=== PATIENT | male | born 1945 | race Caucasian/White ===

== ENCOUNTER → 2020-09-20 12:38 | Outpatient (BNVA) | payer MEDICARE, SELFPAY | PROVIDERS: PCP Nurse Practitioner Family; Referring Provider Nurse Practitioner Family; Visit Provider Internal Medicine | DX: E04.2 Nontoxic multinodular goiter (principal); E55.9 Vitamin D deficiency, unspecified; E05.90 Thyrotoxicosis, unspecified without thyrotoxic crisis or storm | CPT/HCPCS: 99202 ==

== ENCOUNTER 2020-10-12 08:00 | Outpatient (RCR) | payer MEDICARE, SELFPAY ==
--- NOTE | 2020-09-07 09:41 | MHC.PT.EP ---
[facility] [place] Office [place] Office [place] [facility] [address] Thomas Hamm [address] [phone] F: [phone] F: [phone] F: [phone] F: [phone] Physical Therapy Plan of Care Date of Evaluation: 09/07/20 Date of Surgery: Diagnosis: This is a 74 yo male presenting to skilled PT with a script for OA of L hip Assessment: This is a 74 yo male presenting to skilled PT with a script for OA of L hip. He reports that most of his pain is in the L hip. He also has low back pain that is located at the L side (MRI about a year ago showed multiple myeloma and is in remission right now but has a follow up in 2 months). Pain is intermittent. He has been to multiple MDs in [place]. He thinks that his pain has been ongoing for a while due to this dx of multiple myeloma however increased after being on a ladder and pruning bushes a months ago. His pain is located at the L lateral hip and buttock, described as achy and stabbing at time. He has had PT in the past for the same issues at [facility] but reports that he never got a dx and pain remained. Assessment reveals pain ranging from 0 at rest to 9/10 at the worst often when ascending stairs. He has decreased L hip ROM and strength, ? SIJ involvement as well as he has + tests, TTP at [facility], impaired gait, balance and functional tolerance. Functionally he has been having trouble with stairs, walking and bending/lifting. He is a good candidate for skilled PT 2x/wk for 4wks based on function, gross anatomy and PMHx and symptom centralization with extension. Frequency and Duration: The patient will be seen 2x/wk for 4wks Short Term Goals: Patient will be I in HEP Patient will demo proper squat form without cuing or pain Patient will report centralization of symptoms [employer] Goals: Patient will demo WFL hip MMT and ROM Patient will report able to perform stairs with reciprocal gait pattern Pain will improve to no more than 2/10 with active movements, transfers, stairs etc. Treatment Plan: Modalities to reduce pain, spasms and effusion. Manual therapy to restore motion and function. Therapeutic exercise to improve strength and flexibility. Neuromuscular re-education for posture and balance. Therapeutic activities to return to functional activities of daily living. Please sign and return to therapist. Thank you for your referral.
--- NOTE | 2020-11-08 13:17 | MHC.PT.DC ---
[facility] [place] Office [place] Office [place] Office [address] Thomas Hamm [address] [phone] F: [phone] F: [phone] F: [phone] F: [phone] Physical Therapy Discharge Report Diagnosis: This is a 74 yo male presenting to skilled PT with a script for OA of L hip Date of Surgery: Date of Evaluation: 09/07/20 Date of Discharge: 11/08/20 Treatments to Date: 9 Cancellations to Date: 0 No Shows to Date: 0 Discharge Status: Achieved Goals Improved Function Independent with HEP Discharge Summary: At this time some progress has been made in terms of no pain with ADLs, getting in and out of the car and with household tasks. Patient occasionally continues to have similar symptoms that come and go. Due to this, I am recommending follow up with MD (due to PMHx) but continue HEP on own as he is I in his program. We have trialed repeated motions of flexion, extension, stretching and functional mobility. Patient feels well after tx. Patient would benefit from follow up with MD as needed and DC to HEP at this time (kept chart open for 30 days). Electronically signed by: Alexandria Panda PT Please sign and return to therapist. Thank you for your referral.
== END 2020-11-08 13:19 | disposition home or self-care (01) ==
LOC: HO.PTCHIC 08:00
PROVIDERS: PCP Nurse Practitioner Family; Visit Provider Nurse Practitioner Family
DX: M16.12 Unilateral primary osteoarthritis, left hip (principal)
CPT/HCPCS: 97110; 97140; 97162; 97530

== ENCOUNTER → 2020-10-18 15:30 | Outpatient (BNV) | payer MEDICARE, SELFPAY | PROVIDERS: PCP Nurse Practitioner Family; Visit Provider Internal Medicine Medical Oncology | DX: C90.00 Multiple myeloma not having achieved remission (principal); Z51.11 Encounter for antineoplastic chemotherapy | CPT/HCPCS: 99212; 99213; 99214 ==

== ENCOUNTER 2020-11-13 07:51 | Outpatient (REF) | payer MEDICARE, SELFPAY ==
--- NOTE | 2020-11-13 | US_ITS ---
EXAMINATION: COLOR-FLOW DUPLEX IMAGING OF THE BILATERAL LOWER EXTREMITY ARTERIAL SYSTEM. VELOCITY MEASUREMENTS THROUGHOUT THE FEMORAL ARTERIES WITH ANKLE-BRACHIAL PERIPHERAL ARTERIAL TESTING. CLINICAL INFORMATION: This a 74-year-old male with peripheral vascular disease. Claudication. Interventional Radiologist: Theo Hurst M.D., F.S.I.R., F.A.C.R. RIGHT FEMORAL RUNOFF VELOCITIES: The right common femoral artery measures 106 cm/s and triphasic. The right profunda femoral artery is 134 cm/s and is triphasic. Right proximal superficial femoral artery measures 102 cm/s and triphasic. Mid superficial femoral artery is 79 cm/s and triphasic. Distal right superficial femoral artery measures 50 cm/s and is triphasic. Right popliteal velocity measures 60 cm/s and is triphasic. The posterior tibial artery velocity measures 57 cm/s and was triphasic. LEFT FEMORAL RUNOFF VELOCITIES: The left common femoral artery measures 95 cm/s and triphasic. The left profunda femoral artery is 70 cm/s and is triphasic. Left proximal superficial femoral artery measures 86 cm/s and triphasic. Mid superficial femoral artery is 70 cm/s and triphasic. Distal left superficial femoral artery measures 31 cm/s and is biphasic. Left popliteal artery is occluded. The posterior tibial artery velocity measures 41 cm/s and was monophasic. An arrhythmia is demonstrated during the duplex portion of the study. Collaterals are seen around the occluded left popliteal artery. US/US arterial duplex LE BI IMPRESSION: 1. Normal right lower extremity peripheral arterial testing without evidence of hemodynamically significant stenosis. 2. There appears to be left popliteal artery occlusion. The left lower extremity inflow appears patent.
--- NOTE | 2020-11-13 07:56 | CT_ITS ---
EXAMINATION: CT ANGIOGRAM ABDOMEN AND PELVIS CLINICAL INFORMATION: Claudication, abdominal aortic aneurysm without rupture. COMPARISON: None TECHNIQUE: Multiple axial images were obtained through the abdomen and pelvis following the administration of 80 mL of Omnipaque 350 intravenous contrast. Images were reviewed on a dedicated 3-D workstation. This CT examination was performed using dose optimization techniques as appropriate, variously including the following: *Automated exposure control *Adjustment of mA and/or kV according to patient size (this includes techniques or standardized protocols for targeted exams where dose is matched to indication/reason for exam; i.e. extremities or head) *Use of iterative reconstruction technique DLP: 278 mGy-cm FINDINGS: Vascular: The distal thoracic aorta is mildly ectatic and measures 2.9 cm in diameter. At the hiatus the aorta is normal in diameter. There has been endovascular repair of an abdominal aortic aneurysm with bilateral iliac components. The excluded sac measures 3.8 x 4.2 cm, essentially unchanged from prior. There is no evidence of endoleak. Iliac components are unchanged. There is calcific disease of the iliac vessels without significant stenosis. There is calcific plaque of the femoral vessels which are otherwise widely patent. Celiac trunk and superior mesenteric arteries are widely patent. The inferior mesenteric artery is not opacified. Renal arteries are patent. There is a single right renal artery and there is a small left accessory renal artery which arises just proximal to the main. There is no significant stenosis. Unremarkable appearance of the venous structures for an arterial phase of contrast. Nonvascular: Emphysematous changes at the dependent portions of the lungs are similar to prior. Lung bases are otherwise clear. No pleural fluid collection. The liver is normal in overall size and attenuation. Multiple lobulated cysts are unchanged from prior. Tiny focus of hyperenhancement within the anterior left hepatic lobe (image 99, series 8) is unchanged from prior may represent a tiny flash-filling hemangioma or a small region of arterial portal shunting. Unremarkable gallbladder. No gallstones. No intrahepatic or extrahepatic duct dilation is identified. Pancreas is unremarkable. Spleen is mildly heterogeneous secondary to arterial phase of contrast, though otherwise unremarkable. Adrenal glands are unremarkable. The kidneys are symmetric in size and enhancement. There is a 1.6 cm cyst arising from the mid to lower pole of the right kidney, previously 1.3 cm. There are no renal calculi. There is no hydronephrosis or hydroureter. Normal partially distended bladder contour. The distal esophagus and stomach are unremarkable. The small and large bowel are normal in caliber. There is minimal colonic diverticulosis without inflammation to suggest diverticulitis. There is a normal appendix. Small fat-containing left inguinal hernia. Prostate is unremarkable. Note again made of superior endplate deformity of T11. There is a lucent lesion within the anterior left aspect of L5 which measures 2 x 1.7 x 1.8 cm, unchanged from prior study. CT/CT angio abdomen pelvis IMPRESSION: Stable appearance of abdominal aortic aneurysm post endovascular repair without evidence of endoleak. Stable appearance of left L5 vertebral body lesion.
[2020-11-13] MEDS: iohexoL 350 MG/ML 100 ML INFUS..BTL 80 ML IV (08:47)
== END 2020-11-13 07:52 | disposition home or self-care (01) ==
LOC: HO.CT 07:51
PROVIDERS: PCP Nurse Practitioner Family; Visit Provider Psychiatry & Neurology Neurology
DX: I73.9 Peripheral vascular disease, unspecified (principal); I71.4 Abdominal aortic aneurysm, without rupture
CPT/HCPCS: 74174; 93925; Q9967

== ENCOUNTER → 2020-12-06 08:52 | Outpatient (BNVA) | payer MEDICARE, SELFPAY | PROVIDERS: PCP Nurse Practitioner Family; Visit Provider Surgery Vascular Surgery | DX: K40.90 Unilateral inguinal hernia, without obstruction or gangrene, not specified as recurrent (principal); Z98.890 Other specified postprocedural states | CPT/HCPCS: 99212 ==

== ENCOUNTER → 2020-12-12 14:58 | Outpatient (BNVA) | payer MEDICARE, SELFPAY | PROVIDERS: PCP Nurse Practitioner Family; Visit Provider Surgery | DX: K40.90 Unilateral inguinal hernia, without obstruction or gangrene, not specified as recurrent (principal) | CPT/HCPCS: 99212 ==

== ENCOUNTER 2020-12-22 19:42 | Emergency (ER) | payer MEDICARE, SELFPAY ==
--- NOTE | ~2020-12-22 | US_ITS ---
EXAMINATION: US SCROTUM US SCROTUM DOPPLER CLINICAL INFORMATION: Testicular pain. Evaluate for torsion. COMPARISON: Scrotal ultrasound dated 01/11/2020. TECHNIQUE: A sonogram of the scrotum was performed assessing tolbert-scale appearance and color Doppler flow. Spectral Doppler analysis of the arterial and venous flow were performed in the testes bilaterally. FINDINGS: RIGHT: Right testicle measures 4.7 x 2.5 x 2.5 cm, volume 15.4 mL. Redemonstration of a right testicular septated cyst measuring 0.7 x 0.5 x 0.6 cm, not significantly changed. Spectral Doppler analysis of the arterial and venous flow is normal in the right testis. Right epididymal head is normal in size. Simple right epididymal head cysts measure up to 0.5 cm. Mild right-sided varicocele. No right-sided hydrocele. Right epididymal Doppler flow is normal. LEFT: Left testicle measures 5 x 2.4 x 3 cm, volume 18.8 mL. Cystic foci within the mid/lateral aspect of the left testicle which could represent tubular ectasia has increased now measuring up to 1.5 x 0.7 x 0.7 cm (previously measuring up to 1.3 cm). Spectral Doppler analysis of the arterial and venous flow is normal in the left testis. There is a left epididymal head cyst with layering debris which measures up to 6 x 2.4 x 4.2 cm (previously 5.3 x 2.8 x 3.2 cm). Mild left-sided varicocele. No left-sided hydrocele. Left epididymal Doppler flow is normal. US/US scrotum doppler IMPRESSION: 1. No evidence of testicular torsion. 2. Stable septated right testicular cyst. Simple right epididymal head cyst measuring up to 0.5 cm. 3. Increasing cystic foci within the left testicle now measuring up to 1.5 cm (previously 1.3 cm). Left epididymal head cyst with internal debris, increased when compared to the prior examination now measuring up to 6 cm (previously 5.3 cm). 4. Mild varicoceles, left greater than right.
--- NOTE | ~2020-12-22 | CT_ITS ---
EXAMINATION: CT ABDOMEN AND PELVIS WITH CONTRAST CLINICAL INFORMATION: flank pain, left inguinal hernia pain COMPARISON: 11/13/2020 TECHNIQUE: Multidetector volumetric imaging was performed from the superior aspect of the liver through the pubic symphysis following administration of 100 mL Omnipaque 300 intravenous contrast. Sagittal and coronal reformatted images were obtained on the technologist workstation.. This CT examination was performed using dose optimization techniques as appropriate, variously including the following: *Automated exposure control *Adjustment of mA and/or kV according to patient size (this includes techniques or standardized protocols for targeted exams where dose is matched to indication/reason for exam; i.e. extremities or head) *Use of iterative reconstruction technique DLP: 512 mGy-cm FINDINGS: LUNG BASES: Bolus emphysematous changes more so in the dependent lung bases. Small hiatal hernia. LIVER, GALLBLADDER, AND BILIARY TREE: Innumerable low-attenuation probable cysts are again seen throughout the hepatic parenchyma similar to the prior study. No obvious solid enhancing lesion or biliary ductal dilatation. The gallbladder is contracted but otherwise unremarkable with no evidence of radiopaque gallstones, gallbladder wall thickening, or obvious pericholecystic inflammatory changes. PANCREAS: Unremarkable. SPLEEN: Unremarkable. ADRENAL GLANDS: Unremarkable. KIDNEYS AND URETERS: Low-attenuation renal cyst in the lateral midpole of the right kidney. Otherwise the kidneys are normal in size, shape, and attenuation. No hydronephrosis, hydroureter, or calculi seen. No perinephric stranding. BLADDER: Unremarkable. GASTROINTESTINAL TRACT: Scattered diverticulosis but no colonic wall thickening or pericolonic inflammatory changes to suggest diverticulitis. Normal-appearing appendix. Visualized small bowel unremarkable ABDOMINAL WALL: Small fat-containing left greater than right inguinal hernias are seen. No evidence for bowel herniation. Small amount of fluid adjacent to the left inguinal hernia sac similar to the prior study. LYMPHOVASCULAR STRUCTURES: Vascular calcification within the aorta iliac system with a aortobiiliac stent graft noted. The excluded aneurysm component currently measures 3.9 cm in maximal AP diameter likely not significant a change from the prior study PELVIC VISCERA: Unremarkable. OSSEOUS STRUCTURES: Degenerative changes in the spine with chronic compression deformity of the superior endplate of T10 CT/CT abdomen pelvis w con IMPRESSION: Chronic appearing changes similar to the prior study. I do not appreciate any acute superimposed process. Fat-containing inguinal hernias are seen but no evidence for bowel herniation. Overall these appear grossly similar to the prior study.
[2020-12-22 20:06] VITALS: BP 141/86; PULSE 96; RESP 18; TEMP 36.4; O2SAT 96; BMI 25.8
--- NOTE | 2020-12-22 20:32 | ECG_ITS ---
Test Reason : BASELINE Blood Pressure : / mmHG Vent. Rate : 096 BPM Atrial Rate : 096 BPM P-R Int : 166 ms QRS Dur : 106 ms QT Int : 392 ms P-R-T Axes : 060 -49 048 degrees QTc Int : 495 ms Sinus rhythm with Premature atrial complexes Left anterior fascicular block Prolonged QT Abnormal ECG No previous ECGs available Referred By: Wendie Porter Electronically Signed By:LAUREN BROWNING MD
--- NOTE | 2020-12-22 20:32 | ED.MALEGU ---
HPI - Male Genitourinary General Chief complaint: Urogenital-Male Stated complaint: Hernia Source: patient Mode of arrival: ambulatory Limitations: no limitations History of Present Illness HPI Narrative: 75-year-old male with past medical history of multiple myeloma, hyperthyroidism, bursitis, hyperlipidemia, known left inguinal hernia, history of AAA repair, presents with left lower quadrant pain and bilateral testicular pain. The pain started while he was washing dishes, gradually increased to the point where he could not stand straight, then started to dissipate. At this time he states his pain is a 4/10 and at the worst it was a 10/10. He does not report any abdominal distention, fevers, chills, dysuria, hematuria, edema, testicular edema, chest pain or pressure, palpitations, or shortness of breath. MD Complaint: testicle pain and hernia Onset (ago): hour(s) (Several hours) Duration: constant and improved Location: right testicle, left testicle and left inguinal region Radiation: abdomen Severity: moderate Quality: aching Relieving factors: none Exacerbating factors: movement Associated symptoms: Reports denies other symptoms Related Data Home Medications Medication Instructions Recorded Confirmed acyclovir 400 mg PO DAILY 08/09/20 12/13/20 amlodipine [Norvasc] 10 mg PO DAILY 08/09/20 12/13/20 atorvastatin [Lipitor] 40 mg PO DAILY 08/09/20 12/13/20 dexamethasone [Decadron] 20 mg PO DIRECTED 08/09/20 12/13/20 lenalidomide [Revlimid] 15 mg PO DIRECTED 08/09/20 12/13/20 ondansetron HCl [Zofran] 8 mg PO Q8H PRN 08/09/20 12/13/20 bortezomib 3.5 mg solution for 0.875 mg SUBCUT QWEEK 09/20/20 12/13/20 injection lenalidomide 10 mg capsule mg PO 09/20/20 12/13/20 zoledronic acid 4 mg/5 mL 4 mg IV Q4W 09/20/20 12/13/20 intravenous solution Previous Rx's Medication Instructions Recorded metoprolol succinate 100 mg 100 mg PO DAILY #90 tab 08/20/20 tablet,extended release 24 hr hydrochlorothiazide 25 mg tablet 25 mg PO DAILY #90 tab 10/18/20 lisinopril 5 mg tablet 5 mg PO DAILY #90 tab 10/18/20 sulfamethoxazole-trimethoprim 1 tab PO DAILY #90 tab 12/20/20 Allergies Allergy/AdvReac Type Severity Reaction Status Date / Time oxycodone [OXYCODONE] AdvReac Severe vomiting, Verified 12/22/20 20:14 severe vomiting Review of Systems Review of Systems: Constitutional: No Fever, No Chills ENT/Mouth: No Ear Pain, No Hoarseness, No sore throat Eyes: No Eye Pain, No Swelling, No Redness, No Foreign Body Cardiovascular: No Chest Pain, No SOB Respiratory: No Cough, No Dyspnea Gastrointestinal: Positive left lower quadrant pain, No Nausea, No Vomiting, No Diarrhea, No abdominal Pain Genitourinary: Positive bilateral testicular pain, No Dysuria, No Hematuria Musculoskeletal: No joint pain, No Myalgias, No Joint Swelling Skin: No Skin lacerations, No rash Neuro: No Weakness, No Numbness, No Paresthesias, No Loss of Consciousness, No Dizziness, No Headache Psych: No Anxiety/Panic, No Depression Heme/Lymph: no easy bruising, no Lymphadenopathy Endocrine: No Polyuria, No Polydipsia Yes all other systems are reviewed and are negative [facility] Past Medical History Attestation statement: The following information was validated with the patient. Source: old records reviewed Medical History Leukopenia Multinodular thyroid Multiple myeloma Pancytopenia Subclinical hyperthyroidism Vitamin D deficiency Surgical History History of AAA (abdominal aortic aneurysm) repair History of back surgery History of bone marrow biopsy Hx of hernia repair (07/08/18) Hx of tooth extraction Hx of umbilical hernia repair (06/28/13) Family History Family History Father CVD (cardiovascular disease) AAA (abdominal aortic aneurysm) Mother Stomach cancer Social History Social History Household Members: Spouse Housing: House Alcohol intake: never Smoking Status: Never smoker Tobacco Type: Cigarette Years Smoked: 38 Use of substances other than those prescribed or required for medical reasons: No Special tiesha needs: No Agree to transfusion: Yes Advance Directives: Yes Advance Directives on File: Yes Advance Directives Date on File: 04/09/20 Physical Exam Vital Signs: Vital Signs: Last Vital Signs Temp 98.2 F 12/22/20 22:32 Pulse 76 12/22/20 22:32 Resp 16 12/22/20 22:32 BP 127/67 12/22/20 22:32 Pulse Ox 97 12/22/20 22:32 Body Mass Index 25.8 Appearance: Alert. Oriented X3. No acute distress. Eyes: Pupils equal, round and reactive to light. ENT: Pharynx normal. Neck: Normal inspection. Neck supple. CVS: Normal heart rate and rhythm. Pulses normal. Respiratory: No respiratory distress. Lung sounds clear to auscultation all lobes, no chest wall tenderness to palpation Abdomen: Soft and nontender. No bulging noted to the left inguinal, no palpable hernia noted Genitourinary: Testicular exam normal, no palpable masses, penis and glans are normal. No wounds or lesions noted. No pain when lifting or descending the testicles. Skin: Skin warm and dry. Normal skin color. Normal skin turgor. Extremities: No lower extremity edema. Neuro: No motor deficit. No sensory deficit. Course Course Course Narrative: 75-year-old male with past medical history of multiple myeloma, hyperthyroidism, bursitis, hyperlipidemia, known left inguinal hernia, history of AAA repair, presents with left lower quadrant pain and bilateral testicular pain. Plan of care is for CBC, Chem 7, EKG, scrotal ultrasound, and CT of abdomen and pelvis. Lab values are unremarkable, consistent with prior lab values as he does have multiple myeloma, H&H 12.2/35.9 which is consistent with prior values. Doppler shows no indication of torsion, bilateral testicular varicoceles and cysts. CT abdomen and pelvis is negative for incarcerated hernia or acute findings. Plan of care is for patient to follow up with Urology as an outpatient as well as Dr Sanchez for non urgent left inguinal hernia repair. Patient verbalized understanding of and agrees to plan of care discharge home. MDM - Male Genitourinary MDM Narrative Medical decision making narrative: Hernia incarceration, SBO, renal colic Differential Diagnosis Differential diagnosis: Likely urethritis, epididymitis and prostatitis Medical Records Attestation: I reviewed the patient's medical records. Lab Data Attestation: I reviewed the patient's lab results. Result diagrams: 12/22/20 20:57 12/22/20 20:57 Labs: Lab Results 12/22/20 12/22/20 12/22/20 Range/Units 20:39 20:39 20:57 WBC 9.0 (4.8-10.8) X10*3/uL RBC 3.75 L (4.60-5.80) X10*6/uL Hgb 12.2 L (14.0-18.0) g/dl Hct 35.9 L (42-52) % MCV 95.7 (80-98) fL MCH 32.5 (27.0-33.0) pg MCHC 34.0 (31.0-36.0) g/dl RDW 14.5 (11.0-16.0) % Plt Count 142 L D (160-400) X10*3/uL MPV 10.6 (9.4-12.4) fL Immature Gran % (Auto) 1.0 H (0.0-0.4) % Neut % (Auto) 86.6 H (45-73) % Lymph % (Auto) 3.7 L (20-40) % Converse % (Auto) 8.6 (2-11) % Eos % (Auto) 0.1 (0-4) % Baso % (Auto) 0.0 (0-2) % Lymph # (Auto) 0.3 L (1.2-4.9) X10*3/uL Converse # (Auto) 0.8 (0.1-1.2) X10*3/uL Eos # (Auto) 0.0 (0.0-0.4) X10*3/uL Baso # (Auto) 0.0 (0.0-0.2) X10*3/uL Abs Immat Gran (auto) 0.09 H (0.00-0.03) X10*3/uL Absolute Neuts (auto) 7.8 (2.0-8.3) X10*3/uL Absolute Nucleated RBC 0.000 (0.0-0.012) X10*3/uL Nucleated RBC % (auto) 0.0 (0.0-0.2) /100WBC Smear Tech's Comments VERIFIED PT (10.8-13.0) SEC INR (0.9-1.1) APTT (24.1-38.0) SEC Sodium (135-145) mmol/L Potassium (3.3-5.1) mmol/L Chloride (96-108) mmol/L Carbon Dioxide (22-29) mmol/L Anion Gap (12-20) BUN (9-16) mg/dL Creatinine (0.5-1.4) mg/dL Estim Creat Clear Calc Estimated GFR Random Glucose (60-115) mg/dL Calcium (8.4-10.2) mg/dL Urine Color YELLOW Urine Appearance CLEAR Urine pH 5.5 (5.0-8.0) Ur Specific Crockett >= 1.030 H (1.005-1.025) Urine Protein NEG (NEG-TRACE) MG/DL Urine Glucose (UA) NEG (NEG) MG/DL Urine Ketones NEG (NEG) MG/DL Urine Blood NEG (NEG) Urine Nitrite NEG (NEG) Ur Leukocyte Esterase NEG (NEG) Coronavirus (PCR) NEGATIVE (Negative) Influenza Type A (PCR) NEGATIVE (Negative) Influenza Type B (PCR) NEGATIVE (Negative) RSV RNA Qual (PCR) NEGATIVE (Negative) 12/22/20 12/22/20 Range/Units 20:57 20:57 WBC (4.8-10.8) X10*3/uL RBC (4.60-5.80) X10*6/uL Hgb (14.0-18.0) g/dl Hct (42-52) % MCV (80-98) fL MCH (27.0-33.0) pg MCHC (31.0-36.0) g/dl RDW (11.0-16.0) % Plt Count (160-400) X10*3/uL MPV (9.4-12.4) fL Immature Gran % (Auto) (0.0-0.4) % Neut % (Auto) (45-73) % Lymph % (Auto) (20-40) % Converse % (Auto) (2-11) % Eos % (Auto) (0-4) % Baso % (Auto) (0-2) % Lymph # (Auto) (1.2-4.9) X10*3/uL Converse # (Auto) (0.1-1.2) X10*3/uL Eos # (Auto) (0.0-0.4) X10*3/uL Baso # (Auto) (0.0-0.2) X10*3/uL Abs Immat Gran (auto) (0.00-0.03) X10*3/uL Absolute Neuts (auto) (2.0-8.3) X10*3/uL Absolute Nucleated RBC (0.0-0.012) X10*3/uL Nucleated RBC % (auto) (0.0-0.2) /100WBC Smear Tech's Comments PT 12.6 (10.8-13.0) SEC INR 1.1 (0.9-1.1) APTT 25.8 (24.1-38.0) SEC Sodium 137 (135-145) mmol/L Potassium 3.3 D (3.3-5.1) mmol/L Chloride 102 (96-108) mmol/L Carbon Dioxide 26 (22-29) mmol/L Anion Gap 12 (12-20) BUN 27 H D (9-16) mg/dL Creatinine 0.89 (0.5-1.4) mg/dL Estim Creat Clear Calc 70.4 Estimated GFR > 60 Random Glucose 149 H D (60-115) mg/dL Calcium 8.8 (8.4-10.2) mg/dL Urine Color Urine Appearance Urine pH (5.0-8.0) Ur Specific Crockett (1.005-1.025) Urine Protein (NEG-TRACE) MG/DL Urine Glucose (UA) (NEG) MG/DL Urine Ketones (NEG) MG/DL Urine Blood (NEG) Urine Nitrite (NEG) Ur Leukocyte Esterase (NEG) Coronavirus (PCR) (Negative) Influenza Type A (PCR) (Negative) Influenza Type B (PCR) (Negative) RSV RNA Qual (PCR) (Negative) Imaging Data Scrotal ultrasound: Attestation: I personally reviewed and interpreted this imaging study as follows: Radiologist's impression: EXAMINATION: US SCROTUM US SCROTUM DOPPLER CLINICAL INFORMATION: Testicular pain. Evaluate for torsion. COMPARISON: Scrotal ultrasound dated 01/11/2020. TECHNIQUE: A sonogram of the scrotum was performed assessing tolbert-scale appearance and color Doppler flow. Spectral Doppler analysis of the arterial and venous flow were performed in the testes bilaterally. FINDINGS: RIGHT: Right testicle measures 4.7 x 2.5 x 2.5 cm, volume 15.4 mL. Redemonstration of a right testicular septated cyst measuring 0.7 x 0.5 x 0.6 cm, not significantly changed. Spectral Doppler analysis of the arterial and venous flow is normal in the right testis. Right epididymal head is normal in size. Simple right epididymal head cysts measure up to 0.5 cm. Mild right-sided varicocele. No right-sided hydrocele. Right epididymal Doppler flow is normal. LEFT: Left testicle measures 5 x 2.4 x 3 cm, volume 18.8 mL. Cystic foci within the mid/lateral aspect of the left testicle which could represent tubular ectasia has increased now measuring up to 1.5 x 0.7 x 0.7 cm (previously measuring up to 1.3 cm). Spectral Doppler analysis of the arterial and venous flow is normal in the left testis. There is a left epididymal head cyst with layering debris which measures up to 6 x 2.4 x 4.2 cm (previously 5.3 x 2.8 x 3.2 cm). Mild left-sided varicocele. No left-sided hydrocele. Left epididymal Doppler flow is normal. US/US scrotum IMPRESSION: 1. No evidence of testicular torsion. 2. Stable septated right testicular cyst. Simple right epididymal head cyst measuring up to 0.5 cm. 3. Increasing cystic foci within the left testicle now measuring up to 1.5 cm (previously 1.3 cm). Left epididymal head cyst with internal debris, increased when compared to the prior examination now measuring up to 6 cm (previously 5.3 cm). 4. Mild varicoceles, left greater than right. CT scan - abdomen: Attestation: I personally reviewed and interpreted this imaging study as follows: Radiologist's impression: EXAMINATION: CT ABDOMEN AND PELVIS WITH CONTRAST CLINICAL INFORMATION: flank pain, left inguinal hernia pain COMPARISON: 11/13/2020 TECHNIQUE: Multidetector volumetric imaging was performed from the superior aspect of the liver through the pubic symphysis following administration of 100 mL Omnipaque 300 intravenous contrast. Sagittal and coronal reformatted images were obtained on the technologist workstation.. This CT examination was performed using dose optimization techniques as appropriate, variously including the following: *Automated exposure control *Adjustment of mA and/or kV according to patient size (this includes techniques or standardized protocols for targeted exams where dose is matched to indication/reason for exam; i.e. extremities or head) *Use of iterative reconstruction technique DLP: 512 mGy-cm FINDINGS: LUNG BASES: Bolus emphysematous changes more so in the dependent lung bases. Small hiatal hernia. LIVER, GALLBLADDER, AND BILIARY TREE: Innumerable low-attenuation probable cysts are again seen throughout the hepatic parenchyma similar to the prior study. No obvious solid enhancing lesion or biliary ductal dilatation. The gallbladder is contracted but otherwise unremarkable with no evidence of radiopaque gallstones, gallbladder wall thickening, or obvious pericholecystic inflammatory changes. PANCREAS: Unremarkable. SPLEEN: Unremarkable. ADRENAL GLANDS: Unremarkable. KIDNEYS AND URETERS: Low-attenuation renal cyst in the lateral midpole of the right kidney. Otherwise the kidneys are normal in size, shape, and attenuation. No hydronephrosis, hydroureter, or calculi seen. No perinephric stranding. BLADDER: Unremarkable. GASTROINTESTINAL TRACT: Scattered diverticulosis but no colonic wall thickening or pericolonic inflammatory changes to suggest diverticulitis. Normal-appearing appendix. Visualized small bowel unremarkable ABDOMINAL WALL: Small fat-containing left greater than right inguinal hernias are seen. No evidence for bowel herniation. Small amount of fluid adjacent to the left inguinal hernia sac similar to the prior study. LYMPHOVASCULAR STRUCTURES: Vascular calcification within the aorta iliac system with a aortobiiliac stent graft noted. The excluded aneurysm component currently measures 3.9 cm in maximal AP diameter likely not significant a change from the prior study PELVIC VISCERA: Unremarkable. OSSEOUS STRUCTURES: Degenerative changes in the spine with chronic compression deformity of the superior endplate of T10 CT/CT abdomen pelvis w con IMPRESSION: Chronic appearing changes similar to the prior study. I do not appreciate any acute superimposed process. Fat-containing inguinal hernias are seen but no evidence for bowel herniation. Overall these appear grossly similar to the prior study. Discharge Plan Discharge Clinical Impression: Bilateral varicoceles Multiple myeloma Qualifiers: Multiple myeloma remission status: in remission Qualified Code(s): C90.01 - Multiple myeloma in remission Inguinal hernia Qualifiers: Obstruction and gangrene presence: without obstruction or gangrene Laterality: unilateral Recurrence: recurrent Qualified Code(s): K40.91 - Unilateral inguinal hernia, without obstruction or gangrene, recurrent Patient Disposition: Home, Self-Care Instructions: Inguinal Hernia (ED), Varicocele (ED), Testicle Pain (ED) Additional Instructions: You were evaluated for left inguinal hernia and testicular pain. Scrotal ultrasound shows testicular cysts and varicoceles bilaterally. Please follow-up with Urology, Dr Ralph for evaluation. Please call and request an appointment. CT scan of the abdomen and pelvis are negative for acute findings requiring emergent intervention. The left inguinal hernia does not show any indication of incarceration or infection. You may consider following up with your surgeon, Dr. Sanchez for an outpatient surgical evaluation. Thank you for choosing this emergency department for evaluation. Please follow-up with primary care physician as needed. Return to the emergency department for any new, concerning, or worsening symptoms. Prescriptions: No Action metoprolol succinate 100 mg tablet extended release 24 hr 100 mg PO DAILY Qty: 90 RF: 0 lisinopril 5 mg tablet 5 mg PO DAILY Qty: 90 RF: 0 hydrochlorothiazide 25 mg tablet 25 mg PO DAILY Qty: 90 RF: 0 atorvastatin [Lipitor] 40 mg tablet 40 mg PO DAILY RF: 0 ondansetron HCl [Zofran] 8 mg tablet 8 mg PO Q8H PRN (Reason: Nausea) RF: 0 acyclovir 400 mg tablet 400 mg PO DAILY RF: 0 amlodipine [Norvasc] 10 mg tablet 10 mg PO DAILY RF: 0 dexamethasone [Decadron] 4 mg tablet 20 mg PO DIRECTED RF: 0 Revlimid 15 mg capsule 15 mg PO DIRECTED RF: 0 sulfamethoxazole-trimethoprim 400-80 mg tablet 1 tab PO DAILY Qty: 90 RF: 6 Revlimid 10 mg capsule PO RF: 0 zoledronic acid 4 mg/5 mL solution 4 mg IV Q4W RF: 0 Velcade 3.5 mg recon soln 0.875 mg subcut QWEEK RF: 0 Referrals: Bar Ralph MD [Physician] - 2 days (Bilateral testicular cysts and varicoceles) Tho Sanchez MD [Physician] - 2 days (Left inguinal hernia)
[2020-12-22 20:33] VITALS: BP 159/84; PULSE 101; RESP 17; TEMP 37.1; O2SAT 97
[2020-12-22 21:05] LABS: Eosinophils Percent Auto 0.1 % (0-4); Hematocrit 35.9 % (42-52); Hemoglobin 12.2 g/dl (14.0-18.0); Imm Gran Abs Auto 0.09 X10*3/uL (0.00-0.03); Lymphocytes Absolute Auto 0.3 X10*3/uL (1.2-4.9); Lymphocytes Percent Auto 3.7 % (20-40); MANUAL DIFF FLAG SCAN; Mean Corpuscular Hemoglobin 32.5 pg (27.0-33.0); Mean Corpuscular Volume 95.7 fL (80-98); Mean Platelet Volume 10.6 fL (9.4-12.4); Monocytes Absolute Auto 0.8 X10*3/uL (0.1-1.2); Monocytes Percent Auto 8.6 % (2-11); Neutrophils Absolute Auto 7.8 X10*3/uL (2.0-8.3); Neutrophils Percent Auto 86.6 % (45-73); Platelet Count 142 X10*3/uL (160-400); Red Blood Count 3.75 X10*6/uL (4.60-5.80); Red Cell Distribution Width 14.5 % (11.0-16.0); SCAN SMEAR FLAG 1
[2020-12-22 21:05] LABS: Glucose Urine UA NEG (NEG); Leukocyte Esterase Urine NEG (NEG); Nitrite Urine NEG (NEG); PH 5.5 (5.0-8.0); Specific Gravity - Urine >= 1.030 (1.005-1.025); Urine Blood NEG (NEG); Urine Ketones NEG (NEG); Urine Protein NEG (NEG-TRACE)
[2020-12-22 21:11] LABS: Appearance Urine CLEAR; Color Urine YELLOW
[2020-12-22 21:14] LABS: INTERNATIONAL NORM RATIO 1.1 (0.9-1.1); Prothrombin Time 12.6 SEC (10.8-13.0)
[2020-12-22 21:17] LABS: Partial Thromboplastin Time 25.8 SEC (24.1-38.0)
[2020-12-22 21:28] LABS: SLIDE REVIEW VERIFIED
[2020-12-22 21:29] LABS: Anion Gap 12 (12-20); Blood Urea Nitrogen 27 mg/dL (9-16); Calcium 8.8 mg/dL (8.4-10.2); Carbon Dioxide 26 mmol/L (22-29); Chloride 102 mmol/L (96-108); Creatinine Clr Calc Pharmacy 70.4; Estimated Glomerular Filt Rate > 60; Glucose Random 149 mg/dL (60-115); Potassium 3.3 mmol/L (3.3-5.1); Sodium 137 mmol/L (135-145)
[2020-12-22 21:41] LABS: Influenza A PCR NEGATIVE (Negative); Influenza B PCR NEGATIVE (Negative); Resp Syncy Virus RNA Qual PCR NEGATIVE (Negative); SARS COV2 PCR INHOUSE NEGATIVE (Negative)
[2020-12-22 22:32] VITALS: BP 127/67; PULSE 76; RESP 16; TEMP 36.8; O2SAT 97
[2020-12-22] MEDS: iohexoL 350 MG/ML 100 ML INFUS..BTL IV (22:32)
== END 2020-12-22 23:00 | disposition home or self-care (01) ==
PROVIDERS: Nurse Practitioner Family; Emergency Provider Emergency Medicine; PCP Nurse Practitioner Family
DX: K40.91 Unilateral inguinal hernia, without obstruction or gangrene, recurrent (principal); N50.811 Right testicular pain; N50.812 Left testicular pain; I86.1 Scrotal varices; C90.01 Multiple myeloma in remission; Z20.822 Contact with and (suspected) exposure to COVID-19; F17.210 Nicotine dependence, cigarettes, uncomplicated
CPT/HCPCS: 0241U; 36415; 74177; 76870; 80048; 81003; 85025; 85610; 85730; 93005; 93975; 99284; Q9967

== ENCOUNTER 2021-01-06 15:10 | Emergency (ER) | payer MEDICARE, SELFPAY ==
--- NOTE | ~2021-01-06 | CT_ITS ---
EXAMINATION: CT ABDOMEN AND PELVIS WITH CONTRAST CLINICAL INFORMATION: 75-year-old male with left inguinal pain. Question incarcerated hernia. COMPARISON: CT abdomen pelvis 12/22/2020 TECHNIQUE: Multidetector volumetric images were obtained from the superior aspect of the liver through the pubic symphysis following administration 100 mL of Omnipaque 350 intravenous contrast. Sagittal and coronal reformatted images were obtained on the technologist's workstation. This CT examination was performed using dose optimization techniques as appropriate, variously including the following: *Automated exposure control *Adjustment of mA and/or kV according to patient size (this includes techniques or standardized protocols for targeted exams where dose is matched to indication/reason for exam; i.e. extremities or head) *Use of iterative reconstruction technique DLP: 596 mGy-cm FINDINGS: Visualized lung bases demonstrate dependent atelectasis and emphysematous changes. Innumerable hypodense lesions are present throughout the liver, most demonstrate cystic characteristics. The gallbladder is normal in appearance. The pancreas, spleen and adrenal glands are unremarkable. Small posterior splenule again noted. Symmetrically enhancing kidneys. No hydronephrosis of either kidney. 1.8 cm right renal cyst. Tiny hiatal hernia. The stomach is decompressed. Normal caliber loops of small and large bowel. [id number] colonic diverticulosis. No CT evidence to suggest active diverticulitis. Normal appendix. Patient is status post aortobiiliac stent grafting. The graft appears widely patent. Stable dilatation of the infrarenal abdominal aorta measuring 4 cm in maximum AP dimension. No gross retroperitoneal lymphadenopathy. The bladder is distended but otherwise unremarkable in appearance. The prostate gland is enlarged. Bilateral inguinal hernias are present. A small amount of fluid is again noted within the left inguinal hernia. Diffuse osteopenia. Moderate degenerative changes of the spine. Similar mild T10 compression deformity. CT/CT abdomen pelvis w con IMPRESSION: -Stable chronic changes of the abdomen/pelvis. No evidence of incarcerated hernia.
[2021-01-06 15:15] VITALS: BP 148/80; PULSE 82; RESP 18; TEMP 36.7; O2SAT 99; BMI 26.6
[2021-01-06 17:12] VITALS: BP 150/77; PULSE 71; RESP 19; TEMP 36.8; O2SAT 99
[2021-01-06] MEDS: 0.9 % Sodium Chloride 1,000 ML 999 ML IV (17:52)
[2021-01-06] MEDS: ondansetron HCL 4 MG/2 ML VIAL IVPUSH (17:56)
[2021-01-06] MEDS: Morphine Sulfate 4 MG/ML CARTRIDGE IVPUSH (17:56)
--- NOTE | 2021-01-06 17:58 | ED.ABDPAIN ---
HPI - Abdominal Pain General Chief Complaint: Abdominal Pain Stated Complaint: hernia Time Seen by Provider: 01/06/21 17:15 Source: patient Mode of arrival: ambulatory Limitations: no limitations History of Present Illness HPI narrative: Patient presents to ED for left lower inguinal pain. Patient states known history of inguinal hernia. Patient states he is being followed by Dr. Sanchez of surgery. Patient was seen here on the of this month left inguinal pain and had a CT scan which shows fat inguinal hernia, but no incarceration. Patient states he had pain again this morning is the worst that it has ever been. Patient denies any nausea, vomiting, hematuri, flank pain, fever, chills or constipation. Patient states to having good bowel movements today. Related Data Home Medications Medication Instructions Recorded Confirmed acyclovir 400 mg PO DAILY 08/09/20 12/13/20 amlodipine [Norvasc] 10 mg PO DAILY 08/09/20 12/13/20 atorvastatin [Lipitor] 40 mg PO DAILY 08/09/20 12/13/20 dexamethasone [Decadron] 20 mg PO DIRECTED 08/09/20 12/13/20 ondansetron HCl [Zofran] 8 mg PO Q8H PRN 08/09/20 12/13/20 bortezomib 3.5 mg solution for 0.875 mg SUBCUT QWEEK 09/20/20 12/13/20 injection lenalidomide 10 mg capsule mg PO 09/20/20 12/13/20 zoledronic acid 4 mg/5 mL 4 mg IV Q4W 09/20/20 12/13/20 intravenous solution aspirin 325 mg PO DAILY 01/04/21 01/04/21 calcium mg PO 01/04/21 multivitamin 1 tab PO DAILY 01/04/21 01/04/21 omega-3 fatty acids [Fish Oil] PO 01/04/21 01/04/21 vitamin D3-vitamin K2 tab PO 01/04/21 Previous Rx's Medication Instructions Recorded hydrochlorothiazide 25 mg tablet 25 mg PO DAILY #90 tab 10/18/20 lisinopril 5 mg tablet 5 mg PO DAILY #90 tab 10/18/20 sulfamethoxazole-trimethoprim 1 tab PO DAILY #90 tab 12/20/20 metoprolol succinate 100 mg 100 mg PO DAILY #90 tab 01/02/21 tablet,extended release 24 hr tramadol 50 mg PO TID PRN #9 tab 01/06/21 Allergies Allergy/AdvReac Type Severity Reaction Status Date / Time oxycodone [OXYCODONE] AdvReac Severe vomiting, Verified 12/22/20 20:14 severe vomiting Review of Systems Review of Systems Yes all other systems are reviewed and are negative Constitutional: Reports as per HPI and Reports no additional constitutional complaints Eyes: Reports as per HPI and Reports no additional eye complaints Reports system reviewed and no additional complaints, except as documented and Reports as per HPI Cardiovascular: Reports as per HPI and Reports no additional cardiovascular complaints Respiratory: Reports as per HPI and Reports no additional respiratory complaints Gastrointestinal: Reports as per HPI, Reports no additional gastrointestinal complaints and Reports abdominal pain (Left inguinal groin pain) Genitourinary: Reports no additional male genitourinary complaints and Reports as per HPI Musculoskeletal: Reports no additional musculoskeletal complaints and Reports as per HPI Reports system reviewed and no additional complaints, except as documented and Reports as per HPI Psychiatric: Reports no additional psychiatric complaints and Reports as per HPI Physical Exam Vital Signs: Vital Signs: Last Vital Signs Temp 98.3 F 01/06/21 17:12 Pulse 71 01/06/21 17:12 Resp 19 01/06/21 17:12 BP 150/77 H 01/06/21 17:12 Pulse Ox 99 01/06/21 17:12 Body Mass Index 26.6 Const: General: cooperative, healthy appearing, comfortable, no acute distress, well developed, alert, awake and Physically active Orientation/consciousness: patient oriented x3 HENMT: Head: Yes normal to inspection and Yes No palpable skull fracture present Eyes: General: appearance normal, both eyes and all related structures Neck: Neck: Yes normal visual inspection, Yes full ROM, Yes no lymphadenopathy, Yes no meningeal signs, Yes trachea midline, Yes supple and No tender Chest: Chest palpation & inspection: normal inspection of the chest and normal palpation of entire chest wall Resp: Effort & Inspection: normal respiratory effort and able to speak in complete sentences Cardio: Jugular venous distension: no JVD Heart sounds: S1 normal heart sound present and S2 normal heart sound present GI: Inspection: Yes normal to inspection and No abdominal wall ecchymosis Palpation (GI): Soft to palpation, not firm, nontender, no guarding and not rigid : Other: Left inguinal groin: Positive for tender reducible mass in groin. Negative for any left testicular swelling/tenderness. Right inguinal groin: Right inguinal groin normal. Right testicle is normal General: No CVA tenderness and Yes no CVA tenderness Back/Spine/Pelvis: Back: no CVA tenderness, No CVA tenderness and No back tenderness Skin: General skin exam: no rashes or lesions noted and elasticity normal Neuro: General: patient oriented x3, no meningeal signs and CN's II-XI intact bilaterally Cranial nerves: Yes CN's II-XII intact bilaterally Extrem: General: Yes normal to inspection and Yes full ROM Psych: Appearance: grossly normal, well kempt and not disheveled Course Course Course Narrative: I reviewed patient's CT scan either on the 12/22 and showed small left fat containing inguinal hernia. Due to patient stating now the pain is worse than ever will do labs/lactate/possible repeat CT scan. Patient states multiple myeloma still active. Case was discussed with Dr. Glover of surgery while was in the ED as an unofficial off service consult. He states there is a possibility that presently the inguinal hernia can be an actual bowel containing hernia although that is very rare. He states patient's pain is worse than before and repeat CT scan can be done and if normal patient to follow-up with his surgeon Dr. Sanchez Reevaluation(s) Reevaluation #1: Patient states left inguinal pain resolved and he feels better after receiving morphine and IV fluids. UA came back negative for UTI. Labs are at baseline. negative for elevated WBC. Lactic acid negative. Abdominal CT negative for any incarcerated hernia or any acute intrabdominal process. patient safe for discharge and will follow up with Dr. Sanchez of surgery Time: 21:19 MDM - Abdominal Pain MDM Narrative Medical decision making narrative: Inguinal hernia Lab Data Result diagrams: 01/06/21 17:44 01/06/21 17:44 Labs: Lab Results 01/06/21 01/06/21 01/06/21 Range/Units 17:44 17:44 17:44 WBC 5.7 (4.8-10.8) X10*3/uL RBC 3.78 L (4.60-5.80) X10*6/uL Hgb 12.2 L (14.0-18.0) g/dl Hct 36.7 L (42-52) % MCV 97.1 (80-98) fL MCH 32.3 (27.0-33.0) pg MCHC 33.2 (31.0-36.0) g/dl RDW 14.8 (11.0-16.0) % Plt Count 78 L (160-400) X10*3/uL MPV 12.4 (9.4-12.4) fL Immature Gran % (Auto) 0.7 H (0.0-0.4) % Neut % (Auto) 59.4 (45-73) % Lymph % (Auto) 17.8 L (20-40) % Ferry % (Auto) 21.9 H (2-11) % Eos % (Auto) 0.2 (0-4) % Baso % (Auto) 0.0 (0-2) % Lymph # (Auto) 1.0 L (1.2-4.9) X10*3/uL Ferry # (Auto) 1.2 (0.1-1.2) X10*3/uL Eos # (Auto) 0.0 (0.0-0.4) X10*3/uL Baso # (Auto) 0.0 (0.0-0.2) X10*3/uL Abs Immat Gran (auto) 0.04 H (0.00-0.03) X10*3/uL Absolute Neuts (auto) 3.4 (2.0-8.3) X10*3/uL Absolute Nucleated RBC 0.000 (0.0-0.012) X10*3/uL Nucleated RBC % (auto) 0.0 (0.0-0.2) /100WBC Smear Tech's Comments VERIFIED PT 11.9 (10.8-13.0) SEC INR 1.0 (0.9-1.1) APTT 23.8 L (24.1-38.0) SEC Sodium 136 (135-145) mmol/L Potassium 3.6 (3.3-5.1) mmol/L Chloride 100 (96-108) mmol/L Carbon Dioxide 29 (22-29) mmol/L Anion Gap 11 L (12-20) BUN 27 H (9-16) mg/dL Creatinine 0.81 (0.5-1.4) mg/dL Estim Creat Clear Calc 77.4 Estimated GFR > 60 Random Glucose 114 (60-115) mg/dL Lactic Acid (0.5-2.0) mmol/L Calcium 8.4 (8.4-10.2) mg/dL Total Bilirubin 0.7 (0.0-1.0) mg/dL AST 11 (5-37) U/L ALT 14 (0-40) U/L Alkaline Phosphatase 68 (39-117) U/L Total Protein 5.8 L (6.5-8.0) g/dL Albumin 3.6 (3.5-5.0) g/dL Urine Color Urine Appearance Urine pH (5.0-8.0) Ur Specific [place] (1.005-1.025) Urine Protein (NEG-TRACE) MG/DL Urine Glucose (UA) (NEG) MG/DL Urine Ketones (NEG) MG/DL Urine Blood (NEG) Urine Nitrite (NEG) Ur Leukocyte Esterase (NEG) 01/06/21 01/06/21 Range/Units 17:44 20:16 WBC (4.8-10.8) X10*3/uL RBC (4.60-5.80) X10*6/uL Hgb (14.0-18.0) g/dl Hct (42-52) % MCV (80-98) fL MCH (27.0-33.0) pg MCHC (31.0-36.0) g/dl RDW (11.0-16.0) % Plt Count (160-400) X10*3/uL MPV (9.4-12.4) fL Immature Gran % (Auto) (0.0-0.4) % Neut % (Auto) (45-73) % Lymph % (Auto) (20-40) % Ferry % (Auto) (2-11) % Eos % (Auto) (0-4) % Baso % (Auto) (0-2) % Lymph # (Auto) (1.2-4.9) X10*3/uL Ferry # (Auto) (0.1-1.2) X10*3/uL Eos # (Auto) (0.0-0.4) X10*3/uL Baso # (Auto) (0.0-0.2) X10*3/uL Abs Immat Gran (auto) (0.00-0.03) X10*3/uL Absolute Neuts (auto) (2.0-8.3) X10*3/uL Absolute Nucleated RBC (0.0-0.012) X10*3/uL Nucleated RBC % (auto) (0.0-0.2) /100WBC Smear Tech's Comments PT (10.8-13.0) SEC INR (0.9-1.1) APTT (24.1-38.0) SEC Sodium (135-145) mmol/L Potassium (3.3-5.1) mmol/L Chloride (96-108) mmol/L Carbon Dioxide (22-29) mmol/L Anion Gap (12-20) BUN (9-16) mg/dL Creatinine (0.5-1.4) mg/dL Estim Creat Clear Calc Estimated GFR Random Glucose (60-115) mg/dL Lactic Acid 0.8 (0.5-2.0) mmol/L Calcium (8.4-10.2) mg/dL Total Bilirubin (0.0-1.0) mg/dL AST (5-37) U/L ALT (0-40) U/L Alkaline Phosphatase (39-117) U/L Total Protein (6.5-8.0) g/dL Albumin (3.5-5.0) g/dL Urine Color STRAW Urine Appearance CLEAR Urine pH 6.5 (5.0-8.0) Ur Specific [place] 1.015 (1.005-1.025) Urine Protein NEG (NEG-TRACE) MG/DL Urine Glucose (UA) NEG (NEG) MG/DL Urine Ketones NEG (NEG) MG/DL Urine Blood NEG (NEG) Urine Nitrite NEG (NEG) Ur Leukocyte Esterase NEG (NEG) Discharge Plan Discharge Clinical Impression: Inguinal hernia, left Patient Disposition: Home, Self-Care Instructions: Inguinal Hernia (ED) Additional Instructions: Return to the ED immedeiately for worsening of inguinal pain, abdominal pain, nausea, emesis, fever, chills, flank pain, dysuria, hematuria, or any orther concerning symptoms. Prescriptions: New tramadol 50 mg tablet 50 mg PO TID PRN (Reason: pain) Qty: 9 RF: 0 No Action lisinopril 5 mg tablet 5 mg PO DAILY Qty: 90 RF: 0 hydrochlorothiazide 25 mg tablet 25 mg PO DAILY Qty: 90 RF: 0 metoprolol succinate 100 mg tablet extended release 24 hr 100 mg PO DAILY Qty: 90 RF: 0 atorvastatin [Lipitor] 40 mg tablet 40 mg PO DAILY RF: 0 ondansetron HCl [Zofran] 8 mg tablet 8 mg PO Q8H PRN (Reason: Nausea) RF: 0 acyclovir 400 mg tablet 400 mg PO DAILY RF: 0 amlodipine [Norvasc] 10 mg tablet 10 mg PO DAILY RF: 0 dexamethasone [Decadron] 4 mg tablet 20 mg PO DIRECTED RF: 0 sulfamethoxazole-trimethoprim 400-80 mg tablet 1 tab PO DAILY Qty: 90 RF: 6 multivitamin Tablet 1 tab PO DAILY RF: 0 aspirin 325 mg tablet 325 mg PO DAILY RF: 0 calcium 150 mg Tablet PO RF: 0 Fish Oil Capsule PO RF: 0 vitamin D3-vitamin K2 5,500-200 unit-mcg Tablet PO RF: 0 Revlimid 10 mg capsule PO RF: 0 zoledronic acid 4 mg/5 mL solution 4 mg IV Q4W RF: 0 Velcade 3.5 mg recon soln 0.875 mg subcut QWEEK RF: 0 Referrals: Tho Sanchez MD [Physician] - 2 days (Left inguinal reducible hernia. CT scan negative for incarcerated hernia. ) Interventions: ED Discharge Assessment Last Done: 01/06/21 21:29 Discharge Date/Time: 01/06/21 21:33 Print Language: [place] [facility] Past Medical History Medical History Leukopenia Multinodular thyroid Multiple myeloma Pancytopenia Subclinical hyperthyroidism Vitamin D deficiency Surgical History History of AAA (abdominal aortic aneurysm) repair History of back surgery History of bone marrow biopsy Hx of hernia repair (07/08/18) Hx of tooth extraction Hx of umbilical hernia repair (06/28/13) Family History Family History Father CVD (cardiovascular disease) AAA (abdominal aortic aneurysm) Mother Stomach cancer Social History Social History Household Members: Spouse Housing: House Alcohol intake: never Smoking Status: Never smoker Tobacco Type: Cigarette Years Smoked: 38 Use of substances other than those prescribed or required for medical reasons: No Special tiesha needs: No Agree to transfusion: Yes Advance Directives: Yes Advance Directives on File: Yes Advance Directives Date on File: 04/09/20
[2021-01-06 18:06] LABS: Eosinophils Percent Auto 0.2 % (0-4); Hematocrit 36.7 % (42-52); Hemoglobin 12.2 g/dl (14.0-18.0); Imm Gran Abs Auto 0.04 X10*3/uL (0.00-0.03); Imm Gran Pct Auto 0.7 % (0.0-0.4); Lymphocytes Percent Auto 17.8 % (20-40); MANUAL DIFF FLAG SCAN; Mean Corpuscular HGB Conc 33.2 g/dl (31.0-36.0); Mean Corpuscular Hemoglobin 32.3 pg (27.0-33.0); Mean Corpuscular Volume 97.1 fL (80-98); Mean Platelet Volume 12.4 fL (9.4-12.4); Monocytes Absolute Auto 1.2 X10*3/uL (0.1-1.2); Monocytes Percent Auto 21.9 % (2-11); Neutrophils Absolute Auto 3.4 X10*3/uL (2.0-8.3); Neutrophils Percent Auto 59.4 % (45-73); Red Blood Count 3.78 X10*6/uL (4.60-5.80); Red Cell Distribution Width 14.8 % (11.0-16.0); SCAN SMEAR FLAG 1; White Blood Count 5.7 X10*3/uL (4.8-10.8)
[2021-01-06 18:09] LABS: Platelet Count 78 X10*3/uL (160-400)
[2021-01-06 18:16] LABS: Prothrombin Time 11.9 SEC (10.8-13.0)
[2021-01-06 18:20] LABS: Partial Thromboplastin Time 23.8 SEC (24.1-38.0)
[2021-01-06 18:25] LABS: Lactic Acid 0.8 mmol/L (0.5-2.0)
[2021-01-06 18:30] LABS: Alanine Aminotransferase 14 U/L (0-40); Albumin Level 3.6 g/dL (3.5-5.0); Alkaline Phosphatase 68 U/L (39-117); Anion Gap 11 (12-20); Aspartate Amino Transferase 11 U/L (5-37); Bilirubin Total 0.7 mg/dL (0.0-1.0); Blood Urea Nitrogen 27 mg/dL (9-16); Calcium 8.4 mg/dL (8.4-10.2); Carbon Dioxide 29 mmol/L (22-29); Chloride 100 mmol/L (96-108); Creatinine Clr Calc Pharmacy 77.4; Estimated Glomerular Filt Rate > 60; Glucose Random 114 mg/dL (60-115); Potassium 3.6 mmol/L (3.3-5.1); Sodium 136 mmol/L (135-145); Total Protein 5.8 g/dL (6.5-8.0)
[2021-01-06 18:37] LABS: SLIDE REVIEW VERIFIED
[2021-01-06] MEDS: iohexoL 350 MG/ML 100 ML INFUS..BTL IV (19:27)
[2021-01-06 20:25] LABS: Glucose Urine UA NEG (NEG); Leukocyte Esterase Urine NEG (NEG); Nitrite Urine NEG (NEG); PH 6.5 (5.0-8.0); Specific Gravity - Urine 1.015 (1.005-1.025); Urine Blood NEG (NEG); Urine Ketones NEG (NEG); Urine Protein NEG (NEG-TRACE)
[2021-01-06 20:27] LABS: Appearance Urine CLEAR; Color Urine STRAW
== END 2021-01-06 21:33 | disposition home or self-care (01) ==
PROVIDERS: Physician Assistant; Emergency Provider Internal Medicine; PCP Nurse Practitioner Family
DX: K40.90 Unilateral inguinal hernia, without obstruction or gangrene, not specified as recurrent (principal); R10.32 Left lower quadrant pain; F17.210 Nicotine dependence, cigarettes, uncomplicated; Z71.6 Tobacco abuse counseling; Z79.899 Other long term (current) drug therapy
CPT/HCPCS: 36415; 74177; 80053; 81003; 83605; 85025; 85610; 85730; 96361; 96365; 96375; 99284; J2270; J2405; Q9967

== ENCOUNTER → 2021-01-15 11:15 | Outpatient (BNVA) | payer MEDICARE, SELFPAY | PROVIDERS: PCP Nurse Practitioner Family; Visit Provider Surgery | DX: K40.90 Unilateral inguinal hernia, without obstruction or gangrene, not specified as recurrent (principal) | CPT/HCPCS: 99212 ==

== ENCOUNTER 2021-01-21 06:55 | Day surgery (SDC) | payer MEDICARE, SELFPAY ==
--- NOTE | 2021-01-18 07:51 | HO.ANESPROP2 ---
Documented by User: Olamide Pepper 01/18/21 07:55 HPI - Anesthesia Eval Consult details Narrative: 75yo M for Recurrent Hernia Repair Inguinal with Mesh PMFSH Active Problems Active Problems: All Active Problems (Updated 01/06/21 @ 21:22 by JODI Nguyen) HTN (hypertension) (Acute) History of AAA (abdominal aortic aneurysm) repair (Acute) Inguinal hernia, left (Acute) Screening PSA (prostate specific antigen) (Acute) Dyslipidemia (Acute) Bilateral hip pain (Acute) Bilateral hip bursitis (Acute) Vitamin D deficiency (Acute) Subclinical hyperthyroidism (Acute) Multinodular thyroid (Acute) Multiple myeloma (Acute) Past Medical History Medical History AAA (abdominal aortic aneurysm) HTN (hypertension) Leukopenia Multinodular thyroid Multiple myeloma Pancytopenia Subclinical hyperthyroidism Vitamin D deficiency Family History Family History Father CVD (cardiovascular disease) AAA (abdominal aortic aneurysm) Mother Stomach cancer Surgical History Surgical History History of AAA (abdominal aortic aneurysm) repair History of back surgery History of bone marrow biopsy Hx of hernia repair (07/08/18) Hx of tooth extraction Hx of umbilical hernia repair (06/28/13) Social History Social History Household Members: Spouse Housing: House Alcohol intake: never Smoking Status: Former smoker Tobacco Type: Cigarette Years Smoked: 38 Smoking Quit Date: 2009 Use of substances other than those prescribed or required for medical reasons: No Special tiesha needs: No Agree to transfusion: Yes Advance Directives: Yes Advance Directives Information Provided: Yes Advance Directives Date on File: 04/09/20 Meds Allergies Allergy/AdvReac Type Severity Reaction Status Date / Time oxycodone [OXYCODONE] AdvReac Severe vomiting, Verified 01/21/21 07:05 severe vomiting Home Medications Medication Instructions Recorded Confirmed Last Taken Type acyclovir 400 mg PO DAILY 08/09/20 01/17/21 01/21/21 05:45 History amlodipine [Norvasc] 10 mg PO DAILY 08/09/20 01/17/21 01/21/21 05:45 History atorvastatin [Lipitor] 40 mg PO DAILY 08/09/20 01/17/21 01/21/21 05:45 History dexamethasone [Decadron] 20 mg PO DIRECTED 08/09/20 01/17/21 08/09/20 History ondansetron HCl [Zofran] 8 mg PO Q8H PRN 08/09/20 01/17/21 08/09/20 History bortezomib 3.5 mg injection powder 0.875 mg SUBCUT QWEEK 09/20/20 01/17/21 Unknown History for solution lenalidomide 10 mg capsule mg PO 09/20/20 01/17/21 Unknown History zoledronic acid 4 mg/5 mL 4 mg IV Q4W 09/20/20 01/17/21 Unknown History intravenous solution aspirin 325 mg PO DAILY 01/04/21 01/17/21 Unknown History calcium mg PO 01/04/21 01/17/21 Unknown History multivitamin 1 tab PO DAILY 01/04/21 01/17/21 Unknown History omega-3 fatty acids [Fish Oil] PO 01/04/21 01/17/21 Unknown History vitamin D3-vitamin K2 tab PO 01/04/21 01/17/21 Unknown History Exam Exam Date and Time: January 18, 2021 0751 Pertinent Lab Results Pertinent Lab Results: Laboratory Tests 01/17/21 01/17/21 15:32 15:32 WBC 6.3 Hgb 12.5 L Hct 37.5 L Plt Count 101 L Sodium 139 Potassium 4.0 Chloride 103 Carbon Dioxide 28 BUN 17 H Creatinine 0.84 Narrative Narrative: CT abdomen pelvis w con 12/2020 IMPRESSION: -Stable chronic changes of the abdomen/pelvis. No evidence of incarcerated hernia. CT angio abdomen pelvis 11/2020 IMPRESSION: Stable appearance of abdominal aortic aneurysm post endovascular repair without evidence of endoleak. EKG 12/2020 Vent. Rate : 096 BPM Atrial Rate : 096 BPM P-R Int : 166 ms QRS Dur : 106 ms QT Int : 392 ms P-R-T Axes : 060 -49 048 degrees QTc Int : 495 ms Sinus rhythm with Premature atrial complexes Left anterior fascicular block Prolonged QT Abnormal ECG No previous ECGs available Assessment and Plan Assessment Anesthesia Assessment: Chart Reviewed Documented by User: Jennifer Kirk 01/21/21 08:24 [facility] Past Medical History Medical History AAA (abdominal aortic aneurysm) HTN (hypertension) Leukopenia Multinodular thyroid Multiple myeloma Pancytopenia Subclinical hyperthyroidism Vitamin D deficiency Family History Family History Father CVD (cardiovascular disease) AAA (abdominal aortic aneurysm) Mother Stomach cancer Surgical History Surgical History History of AAA (abdominal aortic aneurysm) repair History of back surgery History of bone marrow biopsy Hx of hernia repair (07/08/18) Hx of tooth extraction Hx of umbilical hernia repair (06/28/13) Social History Social History Household Members: Spouse Housing: House Alcohol intake: never Smoking Status: Former smoker Tobacco Type: Cigarette Years Smoked: 38 Smoking Quit Date: 2009 Use of substances other than those prescribed or required for medical reasons: No Special tiesha needs: No Agree to transfusion: Yes Advance Directives: Yes Advance Directives Information Provided: Yes Advance Directives Date on File: 04/09/20 Meds Allergies Allergy/AdvReac Type Severity Reaction Status Date / Time oxycodone [OXYCODONE] AdvReac Severe vomiting, Verified 01/21/21 07:05 severe vomiting Home Medications Medication Instructions Recorded Confirmed Last Taken Type acyclovir 400 mg PO DAILY 08/09/20 01/17/21 01/21/21 05:45 History amlodipine [Norvasc] 10 mg PO DAILY 08/09/20 01/17/21 01/21/21 05:45 History atorvastatin [Lipitor] 40 mg PO DAILY 08/09/20 01/17/21 01/21/21 05:45 History dexamethasone [Decadron] 20 mg PO DIRECTED 08/09/20 01/17/21 08/09/20 History ondansetron HCl [Zofran] 8 mg PO Q8H PRN 10/01/20 03/11/21 10/01/20 History bortezomib 3.5 mg injection powder 0.875 mg SUBCUT QWEEK 09/20/20 01/17/21 Unknown History for solution lenalidomide 10 mg capsule mg PO 09/20/20 01/17/21 Unknown History zoledronic acid 4 mg/5 mL 4 mg IV Q4W 09/20/20 01/17/21 Unknown History intravenous solution aspirin 325 mg PO DAILY 01/04/21 01/17/21 Unknown History calcium mg PO 01/04/21 01/17/21 Unknown History multivitamin 1 tab PO DAILY 01/04/21 01/17/21 Unknown History omega-3 fatty acids [Fish Oil] PO 01/04/21 01/17/21 Unknown History vitamin D3-vitamin K2 tab PO 01/04/21 01/17/21 Unknown History Exam Airway Mallampati Class: I TM Dist: >3cm Neck ROM: Full Denture: Upper Loose/Missing/Broken Teeth: Yes, Upper and Lower Heart: RRR Other: CTA Assessment and Plan Assessment Anesthesia Assessment: Anesthesia Plan Discussed Final Anesthetic Review NPO: Yes ASA Class: III Final Preanesthetic Review: Meds/Allgs Chart Reviewed, Consent Obtained/Reviewed and Anes Risks/Benef Reviewed Patient Risk: Intermediate Procedure Risk: Low Anesthetic Plan Anesthetic Plan: GA Disposition: Standard PACU
[2021-01-18 12:57] VITALS: BMI 26.0
[2021-01-21] VITALS (9 sets, daily range): BP systolic 111–155; BP diastolic 60–74; PULSE 60–71; RESP 12–17; TEMP 35.9–37.8; O2SAT 92–98
[2021-01-21] MEDS: Lactated Ringers 1,000 ML 100 ML IVCONT (07:37)
--- NOTE | 2021-01-21 08:39 | MHC.SHP ---
Pre-Procedural Eval Section A The patient is an INPATIENT: No Changes since office visit: Yes Patient answered all questions; No Cold of Flu in the past 2 weeks, No New Medical Problems and No Changes in Medication The History & Physical has been completed within 30 days and I have reviewed it.: Yes Section B Chief Complaint: Unilateral inguinal hernia,w/o obstruction Allergies: Allergies Allergy/AdvReac Type Severity Reaction Status Date / Time oxycodone [OXYCODONE] AdvReac Severe vomiting, Verified 01/21/21 07:05 severe vomiting Plan Diagnosis/Plan: Unchanged I have reviewed the history and physical and performed a pertinent physical examination on my patient. No changes have occurred unless specified.
--- NOTE | 2021-01-21 10:14 | W.PM.OPN ---
Operative Note Operative Note Date of Service: 01/21/21 Narrative: Preoperative diagnosis: Recurrent left inguinal hernia Postoperative diagnosis: Same Procedure: Repair of recurrent left inguinal hernia Surgeon: Tho Sanchez MD Water Jet Loom Fixer: Rupali Blackman PA-C Anesthesia: General LMA Indications for procedure: 75 year old male patient with previous repair of left inguinal hernia with plug and patch, now with a recurrent lump in the left groin with pain found to have a recurrent left inguinal hernia. Operative findings:. Recurrent left inguinal hernia at the internal ring with intact previous mesh. Mesh repair with flat marlex mesh to tighten internal ring. Specimen: lipoma of the cord Estimated blood loss: 10 ml Complications: none Procedure details: Patient was brought to the OR and placed in a supine position. After administering general anesthesia the patient's abdomen was prepped with ChloraPrep and draped in a sterile fashion. A surgical time-out was called the consent confirmed. Patient received preoperative antibiotics and Venodyne boots were in place. Local anesthesia consisting of 0.5% Sensorcaine with epinephrine was infiltrated over the right inguinal ligament. Incision was then made in oblique fashion over the inguinal ligament. This carried down through subcutaneous tissue past Titi's fashion up to the external oblique aponeurosis. Additional local was infiltrated below the external oblique aponeurosis. This was then incised with a scalpel wide with the Metzenbaum scissors. Spermatic cord was then dissected free from the surrounding inguinal canal and retracted using a Edmund drain. An indirect recurrent left inguinal hernia was identified close at internal ring. This was dissected free from the spermatic cord. Fibers of the cremasteric muscle were then and a large lipoma and no indirect sac was identified. This was dissected down to the internal ring and ligated with a 3-0 Polysorb tie. The previous plug and patch mesh repair was found to be intact but the internal ring was noted to be widened which was allowing the recurrence hernia. It was determined the internal ring needed to be tightened. A secondary polypropylene mesh was obtained and cut this size. A slit was made in the mesh to wrap around the spermatic cord at the internal ring. The mesh was secured at the pubic tubercle conjoined tendon and shelving edge of the inguinal ligament using interrupted 0 Polysorb sutures. The slit was wrapped around the spermatic cord at the internal ring and again secured using 0 Polysorb sutures. Additional sutures were placed distally in the conjoined tendon in shelving edge of the inguinal ligament. The slit in the mesh was felt to be tight enough to allow the tip of an index finger to pass. Wounds were checked for hemostasis. Wounds were irrigated with saline solution and suctioned dry. External oblique aponeurosis was then closed using a running 2 0 Polysorb suture. Titi's fascia and dermis reapproximated using interrupted 3-0 Polysorb sutures. Skin was then closed using a running subcuticular 4-0 Polysorb suture. Steri-Strips 2 x 2 gauze and Tegaderm were then applied. The patient tolerated the procedure well. Sponge, instrument, needle counts reported as correct. Patient was transferred to PACU in stable condition.
[2021-01-21] MEDS: Bacitracin Oint 14 GM TUBE 1 APPL TOPICAL (10:57)
[2021-01-21] MEDS: Acetaminophen 325 MG TABLET 650 MG PO (11:07)
== END 2021-01-21 12:21 | disposition home or self-care (01) ==
PROVIDERS: PCP Nurse Practitioner Family; Visit Provider Surgery
PROC: (CPT 49520; principal; 2021-01-21 08:30)
DX: K40.91 Unilateral inguinal hernia, without obstruction or gangrene, recurrent (principal); D17.6 Benign lipomatous neoplasm of spermatic cord; I10 Essential (primary) hypertension; Z79.899 Other long term (current) drug therapy; Z88.8 Allergy status to other drugs, medicaments and biological substances; Z87.891 Personal history of nicotine dependence
CPT/HCPCS: 49520; 88304; C1781; J0690; J1100; J2250; J2370; J2405; J3010

== ENCOUNTER → 2021-01-30 14:35 | Outpatient (BNVA) | payer MEDICARE, SELFPAY | PROVIDERS: PCP Nurse Practitioner Family; Visit Provider Surgery | DX: Z48.815 Encounter for surgical aftercare following surgery on the digestive system (principal); Z87.19 Personal history of other diseases of the digestive system | CPT/HCPCS: 99212 ==

== ENCOUNTER → 2021-02-13 10:18 | Outpatient (REF) | payer MEDICARE, SELFPAY ==
--- NOTE | 2021-02-13 10:47 | CA_ITS ---
Transthoracic Echocardiogram Patient (Last, First, Middle): Hussein Castellano D Gender: Male Date of : 1945 Age: 75 Procedure Date: 02/13/2021 Procedure Type: Transthoracic Echocardiogram Location: OP Height: 172.72 cm Weight: 79.38 kg BSA: 1.93 m2 Heart Rate: bpm BP: 140 / 72 mmHg Forklift Mechanic: EDGARDO Kim MD: Екатерина Beach MD Veneer Jointer Operator: Aris Juan MD Symptoms: Determine ejection fraction while on chemo Study Quality: Good ECG Rhythm: Sinus Conclusions: - 1. Normal LV systolic function with LVEF of 55-60% with inferior inferoseptal wall motion abnormality with impaired relaxation filling pattern 2. Mildly dilated left atrium 3. Mild aortic stenosis 4. Normal RV systolic pressure 5. No pericardial effusion Findings Left Ventricle Normal left ventricular size, thickness, and systolic function. The visually estimated ejection fraction is between 55-60%. There is no evidence of regional wall motion abnormalities. Spectral Doppler is indicative of an impaired relaxation filling pattern. E/E prime ratio is between 8 and 15 consistent with indeterminate filling pressures. Wall Motion Rest Echo Findings The basal inferior, mid inferior, and basal inferoseptal segments are hypokinetic. All other scored wall segments showed normal motion. Right Ventricle Normal right ventricular cavity size and systolic function. Atria The left atrium is mildly dilated. There is no evidence of interatrial shunt. The right atrium is normal in size. Aortic Valve There is mild aortic valve stenosis. The peak aortic gradient is 23 mmHg.The mean gradient is 12 mmHg. The aortic valve area is 1.89 cm2. There is trace (trivial) aortic valve regurgitation. Mitral Valve There is mild anterior mitral leaflet thickening. There is mild mitral annular calcification. There is trace mitral valve regurgitation. There is no mitral valve stenosis. Pulmonic Valve The pulmonic valve was not well visualized. Tricuspid Valve Normal tricuspid valve structure. There is mild tricuspid valve regurgitation. The right ventricular systolic pressure is normal. The right ventricular systolic pressure is 23 mmHg. Normal right atrial pressure. There is no evidence of pulmonary hypertension. Great Vessels All visible segments of the aorta are normal in size. The pulmonary artery was not well visualized. Venous The inferior vena cava is normal in size and collapses greater than 50% with inspiration. Pericardium/Pleural There is no evidence of pericardial effusion. Prior Study Comparison Changes noted compared to prior study dated: 01/02/2018. mild aortic stenosis is noted. There is also regional wall motion abnormality of the inferior wall noted Measurements 2D Linear Measurements IVSd: 1.17 0.6-0.9/0.6-1.0 cm LVIDd: 4.91 3.9-5.3/4.2-5.9 cm LVIDd Index: 2.54 2.4-3.2/2.2-3.1 cm/m2 LVIDs: 3.21 2.0-3.6 cm LVPWd: 1.15 0.7-1.1 cm Ao Root: 3.60 2.1-3.5 cm LA Diam: 4.00 2.7-3.8/3.0-4.0 cm LAIDs Index: 2.07 1.5-2.3 cm/m2 LV Mass: 269.94 67-162/88-224 g LV Mass Index: 139.87 43-95/49-115 g/m2 LVOT Diam: 2.40 3.0+(-)1.3 cm 2D Systolic Function EF 4C: 55.40 >55% EF 2C: 61.30 >55% EF BiP: 58.00 >55% Mitral Valve MV Pk E: 0.67 MV PK A: 0.74 MV Decel Time: 331.00 E/A: 0.90 E'Lateral: 3.29 E'Medial: 4.35 E/E' Med: 15.30 E/E' Lat: 20.30 PHT: 97.00 MVA PHT: 2.27 Decel Bucks: 2.02 Aortic Valve AoV Pk Khang: 2.42 AoV Mn Khang: 1.60 AoV VTI: 0.48 AoV Pk Grad: 23.00 Aov Mn Grad: 12.00 JULIAN Cont.VTI: 1.89 LVOT LVOT Pk Khang: 0.85 LVOT Mn Khang: 0.58 LVOT VTI: 0.20 LVOT Pk Grad: 3.00 LVOT Mn Grad: 2.00 LVOT Diam: 2.40 LVOT Area: 4.52 Diastolic Function MV Pk E: 0.67 MV Pk A: 0.74 E/A: 0.90 E'Medial: 4.35 E/E' Med: 15.30 E' Laterial: 3.29 E/E' Lat: 20.30 Tricuspid Valve TR Pk Khang: 2.23 TR Pk Grad: 20.00 RA Press: 3.00 RVSP: 23.00 Great Vessels Aorta Ao Root-2D: 3.60 2.0-3.7 cm Ao Asc: 3.60 2.1-3.4 cm Ao Arch: 3.10 Updated in Other Vendor System with Status of Final Aris Juan MD electronically signed on 02/13/2021 4:49:32 PM with status of Final
== END ==
LOC: HO.CARD 10:18
PROVIDERS: Visit Provider Internal Medicine Medical Oncology
DX: C90.00 Multiple myeloma not having achieved remission (principal); Z79.899 Other long term (current) drug therapy
CPT/HCPCS: 93306; 93356

== ENCOUNTER → 2021-02-27 14:55 | Outpatient (BNVA) | payer MEDICARE, SELFPAY | PROVIDERS: PCP Nurse Practitioner Family; Visit Provider Surgery | DX: Z48.815 Encounter for surgical aftercare following surgery on the digestive system (principal); Z87.19 Personal history of other diseases of the digestive system | CPT/HCPCS: 99212 ==

== ENCOUNTER → 2021-04-10 12:28 | Outpatient (BNVA) | payer MEDICARE, SELFPAY | PROVIDERS: PCP Nurse Practitioner Family; Referring Provider Nurse Practitioner Family; Visit Provider Internal Medicine | DX: I25.10 Atherosclerotic heart disease of native coronary artery without angina pectoris (principal); I05.9 Rheumatic mitral valve disease, unspecified; I73.9 Peripheral vascular disease, unspecified; Z98.890 Other specified postprocedural states; Z78.9 Other specified health status | CPT/HCPCS: 93005; 99212 ==

== ENCOUNTER 2021-07-30 09:04 | Outpatient (REF) | payer MEDICARE, SELFPAY ==
--- NOTE | ~2021-07-30 | PE_ITS ---
EXAMINATION: Fluorine-18 FDG PET/CT Scan CLINICAL INDICATION: Subsequent treatment management. Multiple myeloma, status post chemotherapy. PROCEDURE: 63 minutes following the intravenous administration of 14.7 mCi of fluorine 18 FDG, images from the head to the mid thighs were obtained using a combined PET/CT scanner with CT scan based attenuation correction. No oral contrast was administered. No intravenous contrast was administered. Transverse, coronal, sagittal, and volume reconstruction projections were obtained. The patient's blood glucose as determined by a finger stick, was 100 mg/dl immediately prior to injection. Total CT exam dose-length product 296.87 mGy-cm * These CT images were obtained using dose optimization techniques as appropriate, variously including the following: Automated exposure control * Adjustment of mA and/or kV according to patient size (this includes techniques or standardized protocols for targeted exams where dose is matched to indication/reason for exam; i.e. extremities or head) * Use of iterative reconstruction technique COMPARISON: The previous PET CT scan dated 11/15/2019 is available for comparison. The diagnostic CT scans of the abdomen and pelvis, dated 01/06/2021 and 01/10/2010 are available for comparison. CT of the chest dated 08/02/2020 is also available for comparison. FINDINGS: (Slice numbers described in this report are numbered superiorly to inferiorly with slice #1 in the head) NECK AND VISUALIZED HEAD: No foci of abnormal FDG activity are noted. The distribution of FDG activity is physiological. There is no cervical lymphadenopathy. THORAX: No foci of abnormal FDG activity are present in the chest. Diffuse emphysema is noted and is unchanged from prior studies. A stable appearing 0.4 cm medial pleural-based right apical pulmonary nodule is noted. Additional small subcentimeter nodules visualized on the prior 08/02/[address] scan and just barely visualized on the prior 11/15/2019 PET/CT scan are not well visualized on these nondiagnostic CT images. All of these nodules are much too small to be resolved on the FDG PET images and are not visualized. There is no pleural or pericardial fluid, or pneumothorax. There is no mediastinal, supraclavicular, or axillary lymphadenopathy. ABDOMEN AND PELVIS: No foci of abnormal FDG activity are present in the abdomen or pelvis. Mild FDG activity throughout the gastrointestinal tract is noted with no suspicious focal component. There is diverticulosis without evidence of diverticulitis. The hollow viscera are otherwise unremarkable. Multiple stable fluid density hypodensities are present throughout the liver and these all appear relatively photopenic on the FDG PET images. The smallest lesions are too small to be resolved on the FDG PET images. These hypodensities have been present dating back to a CT scan dated 01/10/2010 and while a few may be slightly larger, the overall pattern is similar. The gallbladder, spleen, kidneys, adrenal glands, and pancreas are unremarkable. Bilateral fat-containing inguinal hernias are present, unchanged from prior studies. The prostate gland is enlarged measuring 5.3 cm in largest transverse dimension. The pelvic organs are otherwise unremarkable. MUSCULOSKELETAL: No foci of abnormal FDG activity are present the osseous structures. There are degenerative changes in the spine but no suspicious sclerotic or lytic lesions are visualized. Impression deformity in the superior endplate of T10 is chronic and unchanged from prior studies and shows no associated abnormal FDG activity. VASCULAR: Diffuse vascular calcifications including coronary are present. An aortobiiliac vascular graft is in place and shows no associated abnormal FDG activity. This is unchanged from prior studies. PET/PET CT fusion skull to thigh IMPRESSION: 1. No abnormalities suspicious for malignant disease are noted. There are no suspicious osseous lesions present. 2. Diffuse vascular calcifications including coronary are noted.
== END 2021-07-30 09:05 | disposition home or self-care (01) ==
LOC: HO.PET 09:04
PROVIDERS: PCP Nurse Practitioner Family; Visit Provider Internal Medicine Medical Oncology
DX: Z13.89 Encounter for screening for other disorder (principal)

== ENCOUNTER 2021-08-05 17:43 | Emergency (ER) | payer MEDICARE, SELFPAY ==
[2021-08-05 18:26] VITALS: BP 169/69; PULSE 80; RESP 18; TEMP 36.2; O2SAT 96; BMI 25.8
[2021-08-05] MEDS: Acetaminophen 325 MG TABLET 650 MG PO (18:33)
[2021-08-05 19:37] VITALS: BP 140/56; PULSE 81; RESP 26
--- NOTE | 2021-08-05 19:56 | ED_ITS ---
HPI - Abdominal Pain General Chief Complaint: Abdominal Pain Stated Complaint: low back pain ABD PAIN LEG PAIN Time Seen by Provider: 08/05/21 19:56 Source: patient Mode of arrival: ambulatory Limitations: no limitations History of Present Illness HPI narrative: patient with left flank pain going to his groin. Pain started 3 hours ago. He has multiple myeloma recent PET scan was negative. Patient with dysuria. Now patient states he has a lump in his left groin. In January his hernia was repaired. MD elicited complaint: flank pain Related Data Home Medications Medication Instructions Recorded Confirmed ondansetron HCl 8 mg tablet 8 mg PO Q8H PRN 08/09/20 04/10/21 (Zofran) bortezomib 3.5 mg injection powder 0.875 mg SUBCUT QWEEK 09/20/20 04/10/21 for solution (Velcade) calcium 150 mg tablet 500 mg PO DIRECTED 01/04/21 06/14/21 cholecalciferol (vit D3) 5,500 See Rx Instructions .ROUTE .COMPLEX 01/04/21 04/10/21 unit-vit K2 200 mcg tablet multivitamin 1 tab PO DAILY 01/04/21 04/10/21 omega-3 fatty acids PO DIRECTED 01/04/21 04/10/21 aspirin 81 mg chewable tablet 81 mg PO DAILY 04/05/21 04/10/21 sulfamethoxazole 400 1 tab PO DAILY 06/14/21 06/14/21 mg-trimethoprim 80 mg tablet Previous Rx's Medication Instructions Recorded dexamethasone 4 mg tablet 20 mg PO DIRECTED #100 tab 02/08/21 (Decadron) atorvastatin 40 mg tablet (Lipitor) 40 mg PO BEDTIME #90 tab 02/19/21 amlodipine 10 mg tablet (Norvasc) 10 mg PO DAILY #90 tab 02/21/21 acyclovir 400 mg tablet 400 mg PO DAILY #90 tab 05/19/21 metoprolol succinate 100 mg 100 mg PO DAILY #90 tab 05/20/21 tablet,extended release 24 hr hydrochlorothiazide 25 mg tablet 25 mg PO DAILY #90 tab 07/18/21 lisinopril 5 mg tablet 5 mg PO DAILY #90 tab 07/18/21 Allergies Allergy/AdvReac Type Severity Reaction Status Date / Time oxycodone [OXYCODONE] AdvReac Severe vomiting, Verified 04/10/21 12:40 severe vomiting Review of Systems Denies Sensory deficit (Neuro) Physical Exam Vital Signs: Vital Signs: Last Vital Signs Temp 97.1 F 08/05/21 18:26 Pulse 68 08/05/21 20:58 Resp 16 08/05/21 20:58 BP 122/66 08/05/21 20:58 Pulse Ox 96 08/05/21 20:58 Body Mass Index 25.8 Const: General: healthy appearing Nutritional Appearance: average body habitus Orientation/consciousness: oriented to person and patient oriented x3 Limitations: no limitations HENMT: Head: Yes normal to inspection Ears: external ears normal General nose exam: Normal external nose present Mouth: Normal oral and palatal mucosa present and oropharynx normal Throat: Yes posterior oropharynx normal Eyes: General: appearance normal, both eyes and all related structures Neck: Other: supple Neck: Yes normal visual inspection Chest: Chest palpation & inspection: normal inspection of the chest Resp: Auscultation: clear to auscultation bilaterally Cardio: Jugular venous distension: no JVD Rate: regular rate Rhythm: regular rhythm Heart sounds: S1 normal heart sound present and S2 normal heart sound present GI: Inspection: Yes normal to inspection Palpation (GI): Soft to palpation, nontender and No hepatosplenomegaly present Auscultation: normal bowel sounds : Other: left inguinal hernia firm tender to touch Skin: General skin exam: no rashes or lesions noted Neuro: General: oriented to person and patient oriented x3 Cranial nerves: Yes CN's II-XII intact bilaterally Motor exam (neuro): 5/5 motor strength present throughout Sensory Exam: No Sensory deficit (Neuro) Extrem: General: Yes normal to inspection Psych: Appearance: grossly normal Course Reevaluation(s) Reevaluation #1: left groin hernia, painful. With constant pressure I reduced the hernia with great improvement of the patients pain Time: 20:07 Reevaluation #2: no further pain. UA negative will have patient follow up with Dr. Blandon Time: 21:23 MDM - Abdominal Pain Lab Data Result diagrams: 08/05/21 20:14 08/05/21 20:14 Labs: Lab Results 08/05/21 08/05/21 08/05/21 Range/Units 20:14 20:14 20:14 WBC 8.5 (4.8-10.8) X10*3/uL RBC 3.66 L (4.60-5.80) X10*6/uL Hgb 12.8 L (14.0-18.0) g/dl Hct 37.2 L (42-52) % MCV 101.6 H (80-98) fL MCH 35.0 H (27.0-33.0) pg MCHC 34.4 (31.0-36.0) g/dl RDW 13.9 (11.0-16.0) % Plt Count 179 D (160-400) X10*3/uL MPV 10.6 (9.4-12.4) fL Immature Gran % (Auto) 0.9 H (0.0-0.4) % Neut % (Auto) 85.2 H (45-73) % Lymph % (Auto) 4.6 L (20-40) % [place] % (Auto) 8.9 (2-11) % Eos % (Auto) 0.2 (0-4) % Baso % (Auto) 0.2 (0-2) % Lymph # (Auto) 0.4 L (1.2-4.9) X10*3/uL [place] # (Auto) 0.8 (0.1-1.2) X10*3/uL Eos # (Auto) 0.0 (0.0-0.4) X10*3/uL Baso # (Auto) 0.0 (0.0-0.2) X10*3/uL Abs Immat Gran (auto) 0.08 H (0.00-0.03) X10*3/uL Absolute Neuts (auto) 7.2 (2.0-8.3) X10*3/uL Absolute Nucleated RBC 0.000 (0.0-0.012) X10*3/uL Nucleated RBC % (auto) 0.0 (0.0-0.2) /100WBC Sodium 137 (135-145) mmol/L Potassium 3.7 (3.3-5.1) mmol/L Chloride 101 (96-108) mmol/L Carbon Dioxide 28 (22-29) mmol/L Anion Gap 12 (12-20) BUN 14 (9-16) mg/dL Creatinine 0.85 (0.5-1.4) mg/dL Estim Creat Clear Calc 73.7 Estimated GFR > 60 Random Glucose 141 H D (60-115) mg/dL Calcium 9.5 (8.4-10.2) mg/dL Total Bilirubin 1.1 H (0.0-1.0) mg/dL Direct Bilirubin 0.4 (0.0-0.5) mg/dL AST 14 (5-37) U/L ALT 13 (0-40) U/L Alkaline Phosphatase 77 (39-117) U/L Total Protein 5.8 L (6.5-8.0) g/dL Albumin 4.2 (3.5-5.0) g/dL Lipase 10 (8-78) U/L Urine Color YELLOW Urine Appearance CLEAR Urine pH 6.0 (5.0-8.0) Ur Specific [place] 1.025 (1.005-1.025) Urine Protein NEG (NEG-TRACE) MG/DL Urine Glucose (UA) NEG (NEG) MG/DL Urine Ketones NEG (NEG) MG/DL Urine Blood NEG (NEG) Urine Nitrite NEG (NEG) Ur Leukocyte Esterase NEG (NEG) Discharge Plan Discharge Clinical Impression: Inguinal hernia of left side without obstruction or gangrene Patient Disposition: Home, Self-Care Instructions: Inguinal Hernia (ED) Prescriptions: No Action atorvastatin [Lipitor] 40 mg tablet 40 mg PO BEDTIME Qty: 90 RF: 1 amlodipine [Norvasc] 10 mg tablet 10 mg PO DAILY Qty: 90 RF: 1 acyclovir 400 mg tablet 400 mg PO DAILY Qty: 90 RF: 3 metoprolol succinate 100 mg tablet extended release 24 hr 100 mg PO DAILY Qty: 90 RF: 0 lisinopril 5 mg tablet 5 mg PO DAILY Qty: 90 RF: 0 hydrochlorothiazide 25 mg tablet 25 mg PO DAILY Qty: 90 RF: 0 ondansetron HCl [Zofran] 8 mg tablet 8 mg PO Q8H PRN (Reason: Nausea) RF: 0 multivitamin Tablet 1 tab PO DAILY RF: 0 calcium 150 mg Tablet 500 mg PO DIRECTED RF: 0 omega-3 fatty acids Capsule PO DIRECTED RF: 0 vitamin D3-vitamin K2 5,500-200 unit-mcg Tablet See Rx Instructions .ROUTE .COMPLEX RF: 0 dexamethasone [Decadron] 4 mg tablet 20 mg PO DIRECTED Qty: 100 RF: 3 aspirin [Baby Aspirin] 81 mg Tablet,Chewable 81 mg PO DAILY RF: 0 sulfamethoxazole-trimethoprim 400-80 mg tablet 1 tab PO DAILY RF: 0 Velcade 3.5 mg recon soln 0.875 mg subcut QWEEK RF: 0 Referrals: Tho Sanchez MD [Physician] - 5 days REPLACED BY [facility] Past Medical History Medical History (Updated 08/05/21 @ 21:24 by Kevin Dumas MD) AAA (abdominal aortic aneurysm) HTN (hypertension) Leukopenia Multinodular thyroid Multiple myeloma Pancytopenia Statin intolerance Subclinical hyperthyroidism Vitamin D deficiency Surgical History History of AAA (abdominal aortic aneurysm) repair History of back surgery History of bone marrow biopsy Hx of hernia repair (07/08/18) Hx of tooth extraction Hx of umbilical hernia repair (06/28/13) Family History Family History Father CVD (cardiovascular disease) AAA (abdominal aortic aneurysm) Mother Stomach cancer Social History Social History Household Members: Spouse Housing: House Are you a primary hospice care sales consultant to a significant other at home: No Do you presently have visiting nurse or other home services: No Alcohol intake: never Years Smoked: 38 Special tiesha needs: No Agree to transfusion: Yes Advance Directives: Yes Advance Directives on File: Yes Advance Directives Date on File: 04/09/20
--- NOTE | 2021-08-05 20:00 | PC.NURSE ---
pt noticed a lump in his left lower groin. 01/21/21 sp hernia repair to the same area. dr da silva is at bedside. pt also has burning on urination.
[2021-08-05 20:20] LABS: MANUAL DIFF FLAG NO
[2021-08-05 20:28] LABS: Basophils Percent Auto 0.2 % (0-2); Eosinophils Percent Auto 0.2 % (0-4); Hematocrit 37.2 % (42-52); Hemoglobin 12.8 g/dl (14.0-18.0); Imm Gran Abs Auto 0.08 X10*3/uL (0.00-0.03); Imm Gran Pct Auto 0.9 % (0.0-0.4); Lymphocytes Absolute Auto 0.4 X10*3/uL (1.2-4.9); Lymphocytes Percent Auto 4.6 % (20-40); Mean Corpuscular HGB Conc 34.4 g/dl (31.0-36.0); Mean Corpuscular Volume 101.6 fL (80-98); Mean Platelet Volume 10.6 fL (9.4-12.4); Monocytes Absolute Auto 0.8 X10*3/uL (0.1-1.2); Monocytes Percent Auto 8.9 % (2-11); Neutrophils Absolute Auto 7.2 X10*3/uL (2.0-8.3); Neutrophils Percent Auto 85.2 % (45-73); Platelet Count 179 X10*3/uL (160-400); Red Blood Count 3.66 X10*6/uL (4.60-5.80); Red Cell Distribution Width 13.9 % (11.0-16.0); White Blood Count 8.5 X10*3/uL (4.8-10.8)
[2021-08-05 20:33] LABS: Appearance Urine CLEAR; Color Urine YELLOW; Glucose Urine UA NEG (NEG); Leukocyte Esterase Urine NEG (NEG); Nitrite Urine NEG (NEG); Specific Gravity - Urine 1.025 (1.005-1.025); Urine Blood NEG (NEG); Urine Ketones NEG (NEG); Urine Protein NEG (NEG-TRACE)
[2021-08-05 20:41] LABS: Alanine Aminotransferase 13 U/L (0-40); Albumin Level 4.2 g/dL (3.5-5.0); Alkaline Phosphatase 77 U/L (39-117); Anion Gap 12 (12-20); Aspartate Amino Transferase 14 U/L (5-37); Bilirubin Direct 0.4 mg/dL (0.0-0.5); Bilirubin Total 1.1 mg/dL (0.0-1.0); Blood Urea Nitrogen 14 mg/dL (9-16); Calcium 9.5 mg/dL (8.4-10.2); Carbon Dioxide 28 mmol/L (22-29); Chloride 101 mmol/L (96-108); Creatinine Clr Calc Pharmacy 73.7; Estimated Glomerular Filt Rate > 60; Glucose Random 141 mg/dL (60-115); Lipase 10 U/L (8-78); Potassium 3.7 mmol/L (3.3-5.1); Sodium 137 mmol/L (135-145); Total Protein 5.8 g/dL (6.5-8.0)
[2021-08-05 20:58] VITALS: BP 122/66; PULSE 68; RESP 16; O2SAT 96
== END 2021-08-05 21:38 | disposition home or self-care (01) ==
PROVIDERS: Emergency Provider Emergency Medicine; PCP Nurse Practitioner Family
DX: K40.90 Unilateral inguinal hernia, without obstruction or gangrene, not specified as recurrent (principal); M54.5 Low back pain; M79.605 Pain in left leg; M79.604 Pain in right leg; Z79.899 Other long term (current) drug therapy
CPT/HCPCS: 36415; 80053; 81003; 82248; 83690; 85025; 99283; 99284

== ENCOUNTER → 2021-08-13 13:08 | Outpatient (BNVA) | payer MEDICARE, SELFPAY | PROVIDERS: PCP Nurse Practitioner Family; Referring Provider Nurse Practitioner Family; Visit Provider Surgery | DX: K40.91 Unilateral inguinal hernia, without obstruction or gangrene, recurrent (principal); K59.00 Constipation, unspecified; I71.4 Abdominal aortic aneurysm, without rupture; I10 Essential (primary) hypertension; D72.819 Decreased white blood cell count, unspecified; E04.2 Nontoxic multinodular goiter; E03.8 Other specified hypothyroidism; C90.00 Multiple myeloma not having achieved remission; E55.9 Vitamin D deficiency, unspecified; Z88.6 Allergy status to analgesic agent | CPT/HCPCS: 99212 ==

== ENCOUNTER 2021-09-12 08:46 | Day surgery (SDC) | payer MEDICARE, SELFPAY ==
--- NOTE | 2021-09-11 11:28 | HO.ANESPROP2 ---
Documented by User: Olamide Pabon NP 09/11/21 11:31 HPI - Anesthesia Eval Consult details Narrative: 75yo M for Bone Marrow Biopsy Stable CAD per yearly routine cardiac visit 04/2021 [facility] Active Problems Active Problems: All Active Problems (Updated 08/06/21 @ 00:02 by Ok White) Statin intolerance (Acute) Peripheral vascular disease (Acute) Mitral annular calcification (Acute) Atherosclerotic cardiovascular disease (Acute) Bilateral hip bursitis (Acute) Bilateral hip pain (Acute) Dyslipidemia (Acute) Screening PSA (prostate specific antigen) (Acute) Inguinal hernia, left (Acute) HTN (hypertension) (Acute) History of AAA (abdominal aortic aneurysm) repair (Acute) Vitamin D deficiency (Acute) Subclinical hyperthyroidism (Acute) Multinodular thyroid (Acute) Multiple myeloma (Acute) Past Medical History Medical History AAA (abdominal aortic aneurysm) HTN (hypertension) Leukopenia Multinodular thyroid Multiple myeloma Pancytopenia Statin intolerance Subclinical hyperthyroidism Vitamin D deficiency Family History Family History Father CVD (cardiovascular disease) AAA (abdominal aortic aneurysm) Mother Stomach cancer Surgical History Surgical History History of AAA (abdominal aortic aneurysm) repair History of back surgery History of bone marrow biopsy Hx of hernia repair (07/08/18) Hx of tooth extraction Hx of umbilical hernia repair (06/28/13) Social History Social History Household Members: Spouse Housing: House Are you a primary animal care taker to a significant other at home: No Do you presently have visiting nurse or other home services: No Alcohol intake: never Patient Tobacco Use Status: Former Tobacco user Quit Date: 11 yrs ago Years Smoked: 38 Use of substances other than those prescribed or required for medical reasons: No Special tiesha needs: No Agree to transfusion: Yes Are you DNR?: No Advance Directives: Yes Advance Directives on File: Yes Advance Directives Date on File: 04/09/20 Meds Allergies Allergy/AdvReac Type Severity Reaction Status Date / Time oxycodone [OXYCODONE] AdvReac Severe vomiting, Verified 04/10/21 12:40 severe vomiting Home Medications Medication Instructions Recorded Confirmed Last Taken Type ondansetron HCl 8 mg tablet 8 mg PO Q8H PRN 08/09/20 04/10/21 08/09/20 History (Zofran) bortezomib 3.5 mg injection powder 0.875 mg SUBCUT QWEEK 09/20/20 04/10/21 Unknown History for solution (Velcade) calcium 150 mg tablet 500 mg PO DIRECTED 01/04/21 06/14/21 Unknown History cholecalciferol (vit D3) 5,500 See Rx Instructions .ROUTE .COMPLEX 01/04/21 04/10/21 04/05/21 History unit-vit K2 200 mcg tablet multivitamin 1 tab PO DAILY 01/04/21 04/10/21 Unknown History omega-3 fatty acids PO DIRECTED 01/04/21 04/10/21 Unknown History aspirin 81 mg chewable tablet 81 mg PO DAILY 04/05/21 04/10/21 Unknown History sulfamethoxazole 400 1 tab PO DAILY 06/14/21 06/14/21 09/12/21 05:30 History mg-trimethoprim 80 mg tablet Exam Exam Date and Time: September 11, 2021 1128 Pertinent Lab Results Pertinent Lab Results: Laboratory Tests 09/05/21 09/05/21 15:42 15:42 WBC 5.4 Hgb 12.1 L Hct 36.3 L Plt Count 214 D Sodium 138 Potassium 3.7 Chloride 104 Carbon Dioxide 27 BUN 15 Creatinine 0.98 Narrative Narrative: CT angio abdomen pelvis 11/2020 IMPRESSION: Stable appearance of abdominal aortic aneurysm post endovascular repair without evidence of endoleak. EKG 04/2021 sinus rhythm at 69/Min; no significant ST-T changes; PAC ECHO 03/2021 Conclusions: - 1. Normal LV systolic function with LVEF of 55-60% with? inferior inferoseptal wall motion abnormality with impaired? ? ? relaxation filling pattern ? 2. Mildly dilated left atrium? 3. Mild aortic stenosis? 4. Normal RV systolic pressure ? 5. No pericardial effusion ? Assessment and Plan Assessment Anesthesia Assessment: Chart Reviewed Documented by User: Mony Otto MD 09/12/21 09:26 [facility] Past Medical History Medical History AAA (abdominal aortic aneurysm) HTN (hypertension) Leukopenia Multinodular thyroid Multiple myeloma Pancytopenia Statin intolerance Subclinical hyperthyroidism Vitamin D deficiency Family History Family History Father CVD (cardiovascular disease) AAA (abdominal aortic aneurysm) Mother Stomach cancer Surgical History Surgical History History of AAA (abdominal aortic aneurysm) repair History of back surgery History of bone marrow biopsy Hx of hernia repair (07/08/18) Hx of tooth extraction Hx of umbilical hernia repair (06/28/13) Social History Social History Household Members: Spouse Housing: House Are you a primary animal care taker to a significant other at home: No Do you presently have visiting nurse or other home services: No Alcohol intake: never Patient Tobacco Use Status: Former Tobacco user Quit Date: 11 yrs ago Years Smoked: 38 Use of substances other than those prescribed or required for medical reasons: No Special tiesha needs: No Agree to transfusion: Yes Are you DNR?: No Advance Directives: Yes Advance Directives on File: Yes Advance Directives Date on File: 04/09/20 Meds Allergies Allergy/AdvReac Type Severity Reaction Status Date / Time oxycodone [OXYCODONE] AdvReac Severe vomiting, Verified 04/10/21 12:40 severe vomiting Home Medications Medication Instructions Recorded Confirmed Last Taken Type ondansetron HCl 8 mg tablet 8 mg PO Q8H PRN 08/09/20 04/10/21 08/09/20 History (Zofran) bortezomib 3.5 mg injection powder 0.875 mg SUBCUT QWEEK 09/20/20 04/10/21 Unknown History for solution (Velcade) calcium 150 mg tablet 500 mg PO DIRECTED 01/04/21 06/14/21 Unknown History cholecalciferol (vit D3) 5,500 See Rx Instructions .ROUTE .COMPLEX 01/04/21 04/10/21 04/05/21 History unit-vit K2 200 mcg tablet multivitamin 1 tab PO DAILY 01/04/21 04/10/21 Unknown History omega-3 fatty acids PO DIRECTED 01/04/21 04/10/21 Unknown History aspirin 81 mg chewable tablet 81 mg PO DAILY 04/05/21 04/10/21 Unknown History sulfamethoxazole 400 1 tab PO DAILY 06/14/21 06/14/21 09/12/21 05:30 History mg-trimethoprim 80 mg tablet Exam Airway Mallampati Class: II TM Dist: >3cm Neck ROM: Full
[2021-09-12 09:07] VITALS: BMI 25.8
[2021-09-12 09:26] VITALS: BP 140/71; PULSE 73; RESP 16; TEMP 36.6; O2SAT 98
[2021-09-12] MEDS: Lactated Ringers 1,000 ML 100 ML IVCONT (09:31)
[2021-09-12 11:09] VITALS: BP 92/58; PULSE 57; RESP 16; TEMP 36.6; O2SAT 97
[2021-09-12 11:23] VITALS: BP 107/62; PULSE 59; RESP 16; O2SAT 98
[2021-09-12 11:37] LABS: MANUAL DIFF FLAG NO
[2021-09-12 11:39] VITALS: BP 117/53; PULSE 66; RESP 17; TEMP 36.6; O2SAT 100
[2021-09-12 11:39] LABS: Basophils Percent Auto 0.2 % (0-2); Eosinophils Absolute Auto 0.1 X10*3/uL (0.0-0.4); Eosinophils Percent Auto 1.6 % (0-4); Hemoglobin 11.6 g/dl (14.0-18.0); Imm Gran Abs Auto 0.02 X10*3/uL (0.00-0.03); Imm Gran Pct Auto 0.5 % (0.0-0.4); Lymphocytes Absolute Auto 0.6 X10*3/uL (1.2-4.9); Lymphocytes Percent Auto 14.4 % (20-40); Mean Corpuscular HGB Conc 33.1 g/dl (31.0-36.0); Mean Corpuscular Hemoglobin 34.4 pg (27.0-33.0); Mean Corpuscular Volume 103.9 fL (80.0-98.0); Monocytes Absolute Auto 0.6 X10*3/uL (0.1-1.2); Monocytes Percent Auto 14.2 % (2-11); Neutrophils Absolute Auto 2.98 x10*3/uL (2.0-8.3); Neutrophils Percent Auto 69.1 % (45-73); Platelet Count 69 X10*3/uL (160-400); Red Blood Count 3.37 X10*6/uL (4.60-5.80); Red Cell Distribution Width 13.5 % (11.0-16.0); White Blood Count 4.3 X10*3/uL (4.8-10.8)
--- NOTE | 2021-09-12 14:17 | PM.HEMONCBM ---
Bone Marrow Aspiration - Bone Marrow Aspiration Procedure:: *Service Date: [09/12/21] Pre Op Diagnosis:: Multiple myeloma. Post Op Diagnosis:: SAME. Surgeon:: Sim. Anesthesia:: MAC. Consent:: Informed consent obtained from the patient for the procedure. Pros and cons of biopsy explained. The patient was willing to proceed with the procedure under local anesthesia. Procedure in Detail:: *Service Date: 09/12/21. *Procedure: Bone marrow aspiration and biopsy. *Pre Op Dx: Multiple myeloma. *Post Op Dx: Same. *Surgeon: Екатерина Beach. The patient was positioned prone. The left posterior superior iliac spine prepped and draped. Patient was anesthetized under MAC. Under aseptic precautions, 5 ml of 1% lidocaine used for local anesthesia. Bone marrow aspirate was taken. Biopsy was performed via, the Jamshidi needle, without any complications. Specimens were sent for: Jarrett stain, flow cytometry and cytogenetics. Biopsy was sent for histology. The patient tolerated the procedure well. Bandage was applied and patient was positioned on his back for 10 to 15 minutes after the procedure. The patient was advised to call us if he develops any pain or swelling at the surgical site. Follow up in 2 weeks. CBC from today: WBC 4.3, HGB 11.6, HCT 35, PLT 69.
[2021-09-12 14:23] LABS: Alanine Aminotransferase 13 U/L (0-40); Albumin Level 3.6 g/dL (3.5-5.0); Alkaline Phosphatase 64 U/L (39-117); Anion Gap 9 (12-20); Aspartate Amino Transferase 13 U/L (5-37); Bilirubin Total 0.9 mg/dL (0.0-1.0); Blood Urea Nitrogen 18 mg/dL (9-16); Calcium 8.8 mg/dL (8.4-10.2); Carbon Dioxide 30 mmol/L (22-29); Chloride 106 mmol/L (96-108); Creatinine Clr Calc Pharmacy 75.5; Estimated Glomerular Filt Rate > 60; Glucose Random 103 mg/dL (60-115); Potassium 3.8 mmol/L (3.3-5.1); Sodium 141 mmol/L (135-145)
== END 2021-09-12 12:10 | disposition home or self-care (01) ==
PROVIDERS: PCP Nurse Practitioner Family; Visit Provider Internal Medicine Medical Oncology
PROC: (CPT 38221; principal; 2021-09-12 10:30)
DX: C90.00 Multiple myeloma not having achieved remission (principal); Z94.81 Bone marrow transplant status; R53.83 Other fatigue; M79.10 Myalgia, unspecified site; M89.8X6 Other specified disorders of bone, lower leg; T46.6X5A Adverse effect of antihyperlipidemic and antiarteriosclerotic drugs, initial encounter; M16.12 Unilateral primary osteoarthritis, left hip; D61.818 Other pancytopenia; D72.819 Decreased white blood cell count, unspecified; I10 Essential (primary) hypertension; E55.9 Vitamin D deficiency, unspecified; E05.90 Thyrotoxicosis, unspecified without thyrotoxic crisis or storm; Z79.899 Other long term (current) drug therapy; Z79.82 Long term (current) use of aspirin; Z88.8 Allergy status to other drugs, medicaments and biological substances; Z87.891 Personal history of nicotine dependence
CPT/HCPCS: 38222; 36415; 80053; 85025; 85097; 88184; 88185; 88237; 88264; 88305; 88311; 88313; 88341; 88342; J1642; J2405; J3010

== ENCOUNTER 2021-11-25 15:17 | Outpatient (REF) | payer MEDICARE, SELFPAY ==
--- NOTE | ~2021-11-25 | CT_ITS ---
EXAMINATION: CT ANGIOGRAM ABDOMEN AND PELVIS CLINICAL INFORMATION: Follow-up abdominal aortic aneurysm procedure/stent graft. COMPARISON: Previous CT scan most recent December 2020. TECHNIQUE: Multiple axial images were obtained through the abdomen and pelvis following the administration of 80 mL of Omnipaque 350 intravenous contrast. Images were reviewed on a dedicated 3-D workstation. This CT examination was performed using dose optimization techniques as appropriate, variously including the following: *Automated exposure control *Adjustment of mA and/or kV according to patient size (this includes techniques or standardized protocols for targeted exams where dose is matched to indication/reason for exam; i.e. extremities or head) *Use of iterative reconstruction technique DLP: 366 mGy-cm FINDINGS: VASCULAR: There is an aortobiiliac stent graft that appears unchanged. No evidence of endoleak is seen. There is a small lower abdominal aortic aneurysm that measures maximum 3.9 x 4.2 cm in AP and transverse dimension, for example axial image 371 series 6. This is unchanged. The celiac axis and SMA are patent. There are 2 left renal arteries. There is a small accessory left renal artery supplying the upper pole. There is a single right renal artery. No evidence of renal artery stenosis. The common, internal and external iliac and common femoral arteries are normal in caliber. NON-VASCULAR: There are emphysematous changes at the lung bases. The lung bases are clear. There are multiple liver cysts. These are similar to previous exams. The liver is otherwise unremarkable. The gallbladder is unremarkable The spleen is unremarkable. There is a splenule posterior to the spleen that is stable. The adrenal glands are unremarkable. There are small bilateral renal cysts. Largest cyst measures 1.8 cm in the lower pole of the right kidney. These are otherwise unremarkable. Bladder is unremarkable. The prostate gland is slightly enlarged. There is diverticulosis of the colon. Small and large bowel is otherwise unremarkable. The appendix is unremarkable There are bilateral inguinal hernias containing fat. No ascites or adenopathy is seen. There are degenerative changes of the spine and hip joints. The bones are osteopenic There is a T10 vertebral body mild compression fracture. There is a stable lucent lesion in the L5 vertebral body measuring 1.7 x 2.4 cm. These findings are stable from previous exams. CT/CT angio abdomen pelvis IMPRESSION: Stable appearance to the aortobiiliac stent graft. Stable size of the 3.9 x 4.2 cm lower abdominal aortic aneurysm. Liver and renal cysts. Diverticulosis of the colon. Stable bone findings. Fleischner guidelines were followed.
[2021-11-25] MEDS: iohexoL 350 MG/ML 100 ML INFUS..BTL 65 ML IV (16:30)
== END 2021-11-25 15:18 | disposition home or self-care (01) ==
LOC: HO.CT 15:17
PROVIDERS: PCP Nurse Practitioner Family; Visit Provider Surgery Vascular Surgery
DX: I71.4 Abdominal aortic aneurysm, without rupture (principal); K76.89 Other specified diseases of liver; Q61.02 Congenital multiple renal cysts; K57.30 Diverticulosis of large intestine without perforation or abscess without bleeding; Z95.828 Presence of other vascular implants and grafts
CPT/HCPCS: 74174; Q9967

== ENCOUNTER → 2021-12-05 08:52 | Outpatient (BNVA) | payer MEDICARE, SELFPAY | PROVIDERS: PCP Nurse Practitioner Family; Visit Provider Surgery Vascular Surgery | DX: I71.4 Abdominal aortic aneurysm, without rupture (principal) | CPT/HCPCS: 99212 ==

== ENCOUNTER 2021-12-27 18:02 | Outpatient (REF) | payer MEDICARE, SELFPAY ==
--- NOTE | ~2021-12-27 | MR_ITS ---
EXAMINATION: MRI THORACIC SPINE WITHOUT CONTRAST MRI LUMBAR SPINE WITHOUT CONTRAST CLINICAL INFORMATION: Back pain. Lower extremity weakness. History of myeloma. COMPARISON: CT angiogram of the abdomen and pelvis 11/25/2021. CT PET CT scan 07/30/2021. TECHNIQUE: Multiplanar MR imaging of the thoracic and lumbar spine was performed without contrast. FINDINGS: Thoracic spine: There is a chronic compression deformity of the T11 vertebral body with impaction of the upper endplate resulting in 25% vertebral height loss anteriorly. No retropulsion of posterior cortex and no canal compromise at this level. There is slight anterolisthesis at multiple consecutive levels within the upper thoracic spine and at the level of T10-T11 related to facet degenerative changes at each of these levels. A pseudodisc bulge in conjunction with facet degenerative change causes mild canal stenosis at T2-T3. Shallow protrusions and/or bulging discs are visualized at multiple additional levels. Although suboptimally assessed on this examination there appears to be at least moderate right neuroforaminal encroachment at C7-T1. Otherwise no canal or neuroforaminal compromise within the thoracic spine. No cord compression or abnormal intramedullary signal changes. Limited visualization of the intrathoracic anatomy reveals no paraspinal soft tissue mass or collection. Multiple well marginated cystic lesions are visualized with the liver to these findings coincide with CT characteristics on recent prior imaging. Lumbar spine: There is transitional spinal anatomy at the lumbosacral junction with lumbarization of the S1 vertebral segment. There is slight grade 1 anterolisthesis of L4 on L5 and L5 on S1 related to advanced facet degenerative changes at these 2 levels. Alignment is otherwise normal. Vertebral heights are preserved. No acute bone marrow signal changes. There is slight loss of intervertebral disc height and T2 signal intensity at multiple levels related to disc degeneration. The tip of the conus medullaris is located at L1-L2. No mass effect on the conus. Visualized distal cord signal intensity is normal. At L1-L2 the annular contour is normal. No canal or neuroforaminal, strength At L2-L3 there is a slightly bulging disc. Bilateral facet degenerative change. No canal stenosis. No mass effect on the traversing or foraminal nerve roots. At L3-L4 there is a diffusely bulging disc and bilateral facet degenerative change. Moderate canal stenosis. Subarticular zone narrowing causes abutment and possible compression of both traversing L4 nerve roots. Mild mass effect on both L3 foraminal nerve roots. At L4-L5 there is a pseudodisc bulge. Bilateral facet degenerative change. Mild canal stenosis. Mild mass effect on the right L4 foraminal nerve root. At L5-S1 there is a pseudodisc bulge. Advanced bilateral facet degenerative change. There is asymmetric narrowing of the right subarticular zone causing abutment of the right traversing S1 nerve roots. Moderate compression of the left L5 foraminal nerve root. At S1-S2 the annular contour is normal. Bilateral facet degenerative change. No canal stenosis. No mass effect on the traversing or foraminal nerve roots. Limited visualization of the retroperitoneal anatomy reveals no abnormal finding. There is an infrarenal abdominal aortic aneurysm that is partially included within [id number] of this examination. Psoas and paraspinal muscle groups are symmetric. MR/MR thoracic spine wo con IMPRESSION: Of note there is transitional spinal anatomy at the lumbosacral junction with lumbarization of the S1 vertebral segment. There is multilevel degenerative spondylosis of the thoracic and lumbar spine. Moderate canal stenosis at L3-L4. Mild canal stenosis at T2-T3 and L4-L5. No cord compression or abnormal intramedullary signal changes. There are varying degrees of mass effect on the traversing and foraminal segments the nerve roots as described above. No acute bone marrow signal changes. Chronic compression deformity of the T11 vertebral body.
== END 2021-12-27 18:03 | disposition home or self-care (01) ==
LOC: HO.MRI 18:02
PROVIDERS: Visit Provider Internal Medicine Medical Oncology
DX: M54.9 Dorsalgia, unspecified (principal)
CPT/HCPCS: 72146; 72148

== ENCOUNTER → 2022-01-21 08:02 | Outpatient (BNVA) | payer MEDICARE, SELFPAY | PROVIDERS: PCP Nurse Practitioner Family; Visit Provider Physician Assistant | DX: C90.01 Multiple myeloma in remission (principal); R11.0 Nausea; K21.9 Gastro-esophageal reflux disease without esophagitis; K59.09 Other constipation | CPT/HCPCS: 99202 ==

== ENCOUNTER → 2022-02-11 08:56 | Outpatient (BNVA) | payer MEDICARE, SELFPAY | PROVIDERS: PCP Nurse Practitioner Family; Visit Provider Physician Assistant | DX: K21.9 Gastro-esophageal reflux disease without esophagitis (principal); K59.09 Other constipation; R11.0 Nausea; Z79.899 Other long term (current) drug therapy | CPT/HCPCS: 99212 ==

== ENCOUNTER 2022-02-20 08:27 | Outpatient (REF) | payer MEDICARE, SELFPAY ==
--- NOTE | ~2022-02-20 | XR_ITS ---
EXAMINATION: XR BILATERAL HIPS XR AP KNEE STANDING BILATERAL CLINICAL INFORMATION: Pain right knee and right hip. COMPARISON: None TECHNIQUE: Right hip 2 views. Left hip 2 views. AP bilateral knee and lateral view each knee. FINDINGS: RIGHT HIP: There is maintained right hip joint space with lateral acetabular spurring. No loose bodies, erosive changes seen. No acute fracture or dislocation. Mild heterogenous proximal femoral bone marrow is seen. The soft tissues are normal. LEFT HIP: There is no visible acute fracture or dislocation. No bony erosive changes. There is minimal spurring along the lateral acetabulum. The soft tissues are normal. The left SI joint is normal. BILATERAL KNEE: AP knee standing reveals a minimal reduction in medial compartment joint space bilaterally. No bony erosive changes, fracture or lytic process. Lateral view of bilateral knee reveals a small enthesophyte along the anterior superior patella. No abnormal joint effusion seen. No bony erosive changes or fracture. There is a heterogeneous appearing bone marrow signal in bilateral distal femur. XR/XR hips CHRISTA min 3V IMPRESSION: No visible acute fracture or dislocation either hip. Mild degenerative changes both hip joints. Bilateral heterogeneous appearing bone marrow signal proximal and distal femur. Recommend further evaluation to exclude any blood pathology. There is bilateral moderate anterior superior patellar enthesophytes. There is minimal reduction in bilateral knee joint space but no fracture, dislocation or loose bodies.
--- NOTE | ~2022-02-20 | XR_ITS ---
EXAMINATION: XR BILATERAL HIPS XR AP KNEE STANDING BILATERAL CLINICAL INFORMATION: Pain right knee and right hip. COMPARISON: None TECHNIQUE: Right hip 2 views. Left hip 2 views. AP bilateral knee and lateral view each knee. FINDINGS: RIGHT HIP: There is maintained right hip joint space with lateral acetabular spurring. No loose bodies, erosive changes seen. No acute fracture or dislocation. Mild heterogenous proximal femoral bone marrow is seen. The soft tissues are normal. LEFT HIP: There is no visible acute fracture or dislocation. No bony erosive changes. There is minimal spurring along the lateral acetabulum. The soft tissues are normal. The left SI joint is normal. BILATERAL KNEE: AP knee standing reveals a minimal reduction in medial compartment joint space bilaterally. No bony erosive changes, fracture or lytic process. Lateral view of bilateral knee reveals a small enthesophyte along the anterior superior patella. No abnormal joint effusion seen. No bony erosive changes or fracture. There is a heterogeneous appearing bone marrow signal in bilateral distal femur. XR/XR knee standing BI IMPRESSION: No visible acute fracture or dislocation either hip. Mild degenerative changes both hip joints. Bilateral heterogeneous appearing bone marrow signal proximal and distal femur. Recommend further evaluation to exclude any blood pathology. There is bilateral moderate anterior superior patellar enthesophytes. There is minimal reduction in bilateral knee joint space but no fracture, dislocation or loose bodies.
== END 2022-02-20 08:28 | disposition home or self-care (01) ==
LOC: HO.HMGCX 08:27
PROVIDERS: PCP Nurse Practitioner Family; Visit Provider Nurse Practitioner Family
DX: M25.561 Pain in right knee (principal); M25.562 Pain in left knee; M25.551 Pain in right hip; M25.552 Pain in left hip
CPT/HCPCS: 73522; 73565

== ENCOUNTER → 2022-04-10 12:26 | Outpatient (BNVA) | payer MEDICARE, SELFPAY | PROVIDERS: PCP Nurse Practitioner Family; Referring Provider Nurse Practitioner Family; Visit Provider Internal Medicine | DX: I25.10 Atherosclerotic heart disease of native coronary artery without angina pectoris (principal); I35.0 Nonrheumatic aortic (valve) stenosis; I05.9 Rheumatic mitral valve disease, unspecified; I10 Essential (primary) hypertension; I73.9 Peripheral vascular disease, unspecified; Z79.82 Long term (current) use of aspirin; Z79.899 Other long term (current) drug therapy; Z98.890 Other specified postprocedural states | CPT/HCPCS: 93005; 99212 ==

== ENCOUNTER 2022-05-23 06:11 | Outpatient (REF) | payer MEDICARE, SELFPAY ==
[2022-05-23 11:54] LABS: Appearance Urine CLEAR; Color Urine YELLOW; Glucose Urine UA 100 MG/DL (NEG); Leukocyte Esterase Urine NEG (NEG); Nitrite Urine NEG (NEG); Urine Blood NEG (NEG); Urine Ketones NEG (NEG); Urine Protein NEG (NEG-TRACE)
[2022-05-23 12:06] LABS: Alanine Aminotransferase 12 U/L (0-40); Albumin Level 4.2 g/dL (3.5-5.0); Alkaline Phosphatase 69 U/L (39-117); Anion Gap 11 (12-20); Aspartate Amino Transferase 14 U/L (5-37); Bilirubin Total 0.8 mg/dL (0.0-1.0); Blood Urea Nitrogen 20 mg/dL (9-16); Calcium 8.6 mg/dL (8.4-10.2); Carbon Dioxide 26 mmol/L (22-29); Chloride 108 mmol/L (96-108); Cholesterol 121 mg/dL; Estimated Glomerular Filt Rate > 60; Glucose Fasting 107 mg/dL (60-99); HDL Cholesterol 47 mg/dL; LDL Cholesterol Calculated 65 mg/dl; Potassium 3.9 mmol/L (3.3-5.1); Sodium 141 mmol/L (135-145); Total Protein 5.7 g/dL (6.5-8.0); Triglycerides 48 mg/dL
[2022-05-23 12:15] LABS: Prostate Specific Antigen Scr 6.47 ng/mL (<0.05-4.0); TSH reflex Free T4 0.62 uIU/mL (0.32-4.0)
== END 2022-05-23 06:12 | disposition home or self-care (01) ==
LOC: HO.HMGCLDS 06:11
PROVIDERS: Visit Provider Nurse Practitioner Family
DX: Z12.5 Encounter for screening for malignant neoplasm of prostate (principal); I10 Essential (primary) hypertension; E55.9 Vitamin D deficiency, unspecified; E78.5 Hyperlipidemia, unspecified
CPT/HCPCS: 36415; 80053; 80061; 81003; 82306; 84153; 84443

== ENCOUNTER → 2022-10-21 09:42 | Outpatient (BNVA) | payer MEDICARE, SELFPAY | PROVIDERS: PCP Nurse Practitioner Family; Visit Provider Urology | DX: R97.20 Elevated prostate specific antigen [PSA] (principal); N40.1 Benign prostatic hyperplasia with lower urinary tract symptoms; N40.3 Nodular prostate with lower urinary tract symptoms; N13.8 Other obstructive and reflux uropathy; R33.8 Other retention of urine | CPT/HCPCS: 99202 ==

== ENCOUNTER 2023-02-16 10:09 | Outpatient (REF) | payer MEDICARE, SELFPAY | END 2023-02-16 10:10 | disposition home or self-care (01) | LOC: HO.SH 10:09 | PROVIDERS: Visit Provider Internal Medicine Medical Oncology | DX: Z01.118 Encounter for examination of ears and hearing with other abnormal findings (principal); H90.3 Sensorineural hearing loss, bilateral | CPT/HCPCS: 92557; 92567 ==

== ENCOUNTER → 2023-03-02 09:35 | Outpatient (BNVA) | payer MEDICARE, SELFPAY | PROVIDERS: PCP Nurse Practitioner Family; Visit Provider Internal Medicine | DX: I25.10 Atherosclerotic heart disease of native coronary artery without angina pectoris (principal); I35.0 Nonrheumatic aortic (valve) stenosis; I05.9 Rheumatic mitral valve disease, unspecified; I10 Essential (primary) hypertension; I73.9 Peripheral vascular disease, unspecified; Z78.9 Other specified health status; Z98.890 Other specified postprocedural states | CPT/HCPCS: 99212 ==

== ENCOUNTER → 2023-04-02 09:45 | Outpatient (REF) | payer MEDICARE, SELFPAY ==
--- NOTE | 2023-04-02 09:47 | CA_ITS ---
Transthoracic Echocardiogram Patient (Last, First, Middle): Hussein Castellano D Gender: Male Date of : 1945 Age: 77 Procedure Date: 04/02/2023 Procedure Type: Transthoracic Echocardiogram Location: OP Height: 172.72 cm Weight: 77.11 kg BSA: 1.91 m2 Heart Rate: bpm BP: 140 / 70 mmHg Blender/Braze Applicator: TO Referring MD: Fer Allen MD Symptoms: I35.0 - Nonrheumatic aortic (valve) stenosis Study Quality: Fair ECG Rhythm: Sinus Conclusions: - The left ventricular systolic function is low normal. The calculated ejection fraction is 53% by biplane method. - Moderately increased right ventricular cavity size. - There is mild to moderate aortic valve stenosis. - There is mild mitral annular calcification. - There is mild dilatation of the ascending aorta measuring 4.10 cm. Findings Left Ventricle Normal left ventricular cavity size. The left ventricular systolic function is low normal. The calculated ejection fraction is 53% by biplane method. There is no evidence of regional wall motion abnormalities. E/E prime ratio is between 8 and 15 consistent with indeterminate filling pressures. Evidence suggests grade I (mild) diastolic dysfunction. There is mild septal asymmetric hypertrophy. Possible basal inferior wall hypokinesis. Right Ventricle Moderately increased right ventricular cavity size. There is normal right ventricular systolic function. Atria Mild biatrial enlargement. Aortic Valve There is a normal trileaflet aortic valve. There is moderate calcification of the aortic valve. There is mild to moderate aortic valve stenosis. The mean gradient is 11 mmHg. The aortic valve area is 1.38 cm2. There is trace (trivial) aortic valve regurgitation. Dimensionless index 0.29. Stroke volume index 37ml/m2. Mitral Valve There is mild anterior and posterior mitral leaflet thickening. There is mild mitral annular calcification. There is trace mitral valve regurgitation. There is no mitral valve stenosis. Pulmonic Valve The pulmonic valve is likely normal. There is trace pulmonic valve regurgitation. Tricuspid Valve Normal tricuspid valve structure. There is trace tricuspid valve regurgitation. There is no evidence of pulmonary hypertension. Great Vessels There is mild dilatation of the ascending aorta measuring 4.10 cm. Venous The inferior vena cava is normal in size and collapses greater than 50% with inspiration. Pericardium/Pleural There is no evidence of pericardial effusion. Prior Study Comparison Changes noted compared to prior study dated: 02/13/2021. Slight progression of aortic valve stenosis. Measurements 2D Linear Measurements IVSd: 1.25 0.6-0.9/0.6-1.0 cm LVIDd: 4.58 3.9-5.3/4.2-5.9 cm LVIDd Index: 2.40 2.4-3.2/2.2-3.1 cm/m2 LVIDs: 2.52 2.0-3.6 cm LVPWd: 0.92 0.7-1.1 cm LA Diam: 4.10 2.7-3.8/3.0-4.0 cm LAIDs Index: 2.15 1.5-2.3 cm/m2 LV Mass: 219.93 67-162/88-224 g LV Mass Index: 115.15 43-95/49-115 g/m2 LVOT Diam: 2.40 3.0+(-)1.3 cm 2D Systolic Function EF 4C: 54.60 >55% EF 2C: 54.70 >55% EF BiP: 52.70 >55% Mitral Valve MV Pk E: 0.49 MV PK A: 0.66 MV Decel Time: 337.00 E/A: 0.70 E'Lateral: 3.70 E'Medial: 3.92 E/E' Med: 12.60 E/E' Lat: 13.30 PHT: 99.00 MVA PHT: 2.22 Decel Placer: 1.46 Aortic Valve AoV Pk Khang: 2.34 AoV Mn Khang: 1.58 AoV VTI: 0.52 AoV Pk Grad: 22.00 Aov Mn Grad: 11.00 JULIAN Cont.VTI: 1.38 LVOT LVOT Pk Khang: 0.68 LVOT Mn Khang: 0.47 LVOT VTI: 0.16 LVOT Pk Grad: 2.00 LVOT Mn Grad: 1.00 LVOT Diam: 2.40 LVOT Area: 4.52 Diastolic Function MV Pk E: 0.49 MV Pk A: 0.66 E/A: 0.70 E'Medial: 3.92 E/E' Med: 12.60 E' Laterial: 3.70 E/E' Lat: 13.30 Tricuspid Valve TR Pk Khang: 2.02 TR Pk Grad: 16.00 RA Press: 3.00 RVSP: 19.00 Great Vessels Aorta Sinus of Valsalva: 3.92 2.0-3.[address] Ridge: 3.26 1.7-3.4 cm Ao Asc: 4.10 2.1-3.4 cm Updated in Other Vendor System with Status of Final Fer Allen MD electronically signed on 04/03/2023 2:36:05 PM with status of Final
== END ==
LOC: HO.CARD 09:45
PROVIDERS: PCP Nurse Practitioner Family; Visit Provider Internal Medicine
DX: I35.0 Nonrheumatic aortic (valve) stenosis (principal)
CPT/HCPCS: 93306

== ENCOUNTER 2023-05-14 06:05 | Outpatient (REF) | payer MEDICARE, SELFPAY | END 2023-05-14 06:06 | disposition home or self-care (01) | LOC: HO.HMGCLDS 06:05 | PROVIDERS: PCP Nurse Practitioner Family; Visit Provider Urology | DX: Z12.5 Encounter for screening for malignant neoplasm of prostate (principal); N04.2 Nephrotic syndrome with diffuse membranous glomerulonephritis | CPT/HCPCS: 36415; 84153 ==

== ENCOUNTER 2023-05-19 15:30 | Outpatient (AMB) | payer MEDICARE, SELFPAY ==
--- NOTE | 2023-05-19 15:32 | MHC.OFFVIS ---
Intake Intake Visit Reasons: PSA(set) Insurance denied MRI Intake Note: Patient is present for Telephone PSA Urology Med: Finasteride Antibiotic Allergy: None Blood Thinner: Aspirin Allergies oxycodone [OXYCODONE] Adverse Reaction (Severe, Verified 05/19/23 15:33) vomiting, severe vomiting HPI HPI Comments History of Present Illness Details Hussein is a very pleasant male. He is a patient of Dr. Liao. He is seen for the following urologic conditions - elevated PSA Telemedicine Evaluation 15 min Consultation Doximity Deo Video attempted PSA has fallen sharply Continue finasteride Six-month follow-up Elevated PSA PSA 10/10 9.0, 05/30 6.5, 05/31 2.4 Urinary parameters nocturia times to secondary to multiple myeloma, variable stream, occasional hesitancy Trial finasteride TIFFANIE 2+ prostate soft, base nodule right Plan - continue finasteride [facility] Medical History AAA (abdominal aortic aneurysm) HTN (hypertension) Leukopenia Multinodular thyroid Multiple myeloma Pancytopenia Statin intolerance Subclinical hyperthyroidism Vitamin D deficiency Surgical History History of AAA (abdominal aortic aneurysm) repair History of back surgery History of bone marrow biopsy Hx of hernia repair (07/08/18) Hx of tooth extraction Hx of umbilical hernia repair (06/28/13) Family History Father CVD (cardiovascular disease) AAA (abdominal aortic aneurysm) Mother Stomach cancer Social History Household Members: Spouse Housing: House Are you a primary director of critical care to a significant other at home: No Do you presently have visiting nurse or other home services: No Alcohol intake: never Patient Tobacco Use Status: Former Tobacco user Quit Date: 11 yrs ago Years Smoked: 38 e-Cigarette/Vaping Use: Never Used Second Hand Smoke Exposure: No Special tiesha needs: No Agree to transfusion: Yes Advance Directives Date on File: 04/09/20 Current occupational status: employed and retired Cognitive needs: No Hearing needs: No Vision needs: No Review of Systems Const All systems reviewed & are unremarkable except as noted in HPI and below Reports no additional complaints Resp Reports no additional complaints GI Reports no additional complaints Reports as per HPI Musc Reports no additional complaints Physical Exam Telemedicine evaluation Appropriate responses Regular breathing rate and rhythm HEENT Head: Yes normal to inspection Ears: hearing grossly normal bilaterally Eyes General: appearance normal, both eyes and all related structures Neck Neck: Yes normal visual inspection Chest Chest palpation & inspection: normal inspection of the chest Resp Effort & Inspection: normal respiratory effort and able to speak in complete sentences Assessment & Plan Assessment & Plan (1) BPH w urinary obs/LUTS: Code(s): N40.1 - Benign prostatic hyperplasia with lower urinary tract symptoms; N13.8 - Other obstructive and reflux uropathy (2) Elevated PSA: Code(s): R97.20 - Elevated prostate specific antigen [PSA] Plan Six month follow-up Orders: Orders Prostate Specific Antigen 6 Months R97.20 - Elevated prostate specific antigen [PSA] Medications: Changed From finasteride 5 mg PO DAILY 30 days 30 tabs 1RF N13.8 - Other obstructive and reflux uropathy, N40.1 - Benign prostatic hyperplasia with lower urinary tract symptoms, N40.2 - Nodular prostate without lower urinary tract symptoms, R33.9 - Retention of urine, unspecified To finasteride 5 mg PO DAILY 90 tabs 1RF 90 days N13.8 - Other obstructive and reflux uropathy, N40.1 - Benign prostatic hyperplasia with lower urinary tract symptoms, N40.2 - Nodular prostate without lower urinary tract symptoms, R33.9 - Retention of urine, unspecified Patient Instructions: Imaging studies, laboratory and physical exam results were discussed and reviewed in detail. No major barriers to patient understanding were identified. An opportunity to ask questions regarding the treatment plan was provided. All questions were answered. The patient expressed understanding and agreement with the above treatment plan. The patient is aware they should contact our office by phone for worsening of their current condition or the appearance of new urologic symptoms. Compliance is encouraged with any medications and followup testing that is ordered. It is a privilege to participate in the urologic care of your patient. If you have any questions or concerns regarding treatment for the above conditions, or other urologic issues, please do not hesitate to contact me. The office telephone contact is [phone]. This note is constructed using voice recognition software. While every effort has been made to ensure accuracy sales force administrator errors may have been included. Yours sincerely, Dr Bar Ralph MD, [facility] - Urology Providers of Expert, Compassionate Care for the Genitourinary System Telehealth Telehealth Location of provider rendering services: practice address Location of patient: address on file Patient Identification confirmed using: Name, : Yes Telehealth method: video Patient verbally consented to treatment: Yes Patient verbally consented to billing insurance company: Yes Patient informed of any privacy concerns related to visit: Yes Coding Level of Care Code Tele Est Pt Level 3 (72967) Diagnoses BPH w urinary obs/LUTS N40.1; N13.8 Elevated PSA R97.20
== END 2023-05-19 16:30 | disposition home or self-care (01) ==
LOC: HO.HUSH 15:30
PROVIDERS: PCP Nurse Practitioner Family; Visit Provider Urology
DX: N40.1 Benign prostatic hyperplasia with lower urinary tract symptoms (principal); N13.8 Other obstructive and reflux uropathy; R97.20 Elevated prostate specific antigen [PSA]
CPT/HCPCS: 99213

== ENCOUNTER → 2023-05-19 15:30 | Outpatient (BNVA) | payer MEDICARE, SELFPAY | PROVIDERS: PCP Nurse Practitioner Family; Visit Provider Urology | DX: R97.20 Elevated prostate specific antigen [PSA] (principal); N40.1 Benign prostatic hyperplasia with lower urinary tract symptoms; N13.8 Other obstructive and reflux uropathy; Z79.82 Long term (current) use of aspirin; Z79.899 Other long term (current) drug therapy | CPT/HCPCS: Q3014 ==

== ENCOUNTER 2023-05-22 13:10 | Outpatient (REF) | payer MEDICARE, SELFPAY ==
--- NOTE | ~2023-05-22 | XR_ITS ---
EXAMINATION: XR SKELETAL SURVEY CLINICAL INFORMATION: Multiple myeloma imaging follow-up COMPARISON: 10/11/2019 TECHNIQUE: 20 views of the axial and appendicular skeletal system. FINDINGS: No skull lesion definable. Chest imaging demonstrates no definite lucent lesions throughout the ribs. Lungs are clear. No soft tissue prominence measurable. Axial skeletal system demonstrates advanced spondylosis throughout. Disc disease about the lower cervical spine at C6-C7 appears similar. No fracture. Diffuse osteopenia noted. Aortic stent graft in place. Pelvic imaging demonstrates subtle mottled mineralization particularly of the right femoral which appears less evident on the current study. Similar pattern noted within the both femora and humeri. Appearance is suspicious for myelomatous involvement. Similar subtle lucencies involving the appendicular cyst was noted previously which is overall similar. No pathologic fracture. The forearm and tib-fib levels are unremarkable. XR/XR bone survey IMPRESSION: Similar pattern of mottled mineralization within the pelvis, humeri and femora suspicious for myelomatous involvement. No pathologic fracture.
== END 2023-05-22 13:11 | disposition home or self-care (01) ==
LOC: HO.HMGCX 13:10
PROVIDERS: PCP Nurse Practitioner Family; Visit Provider Internal Medicine Medical Oncology
DX: C90.00 Multiple myeloma not having achieved remission (principal)
CPT/HCPCS: 77075

== ENCOUNTER 2023-05-24 03:35 | Observation (INO) | payer MEDICARE, SELFPAY ==
[2023-05-24] VITALS (8 sets, daily range): BP systolic 114–143; BP diastolic 64–76; PULSE 62–94; RESP 16–20; TEMP 36.9–37.4; O2SAT 92–96; BMI 24.7; BMI 24.3
--- NOTE | ~2023-05-24 | CT_ITS ---
EXAMINATION: CT CHEST WITHOUT CONTRAST CLINICAL INFORMATION: Fever, cough, history of multiple myeloma. COMPARISON: Chest CT scan dated 08/02/2020 TECHNIQUE: Multidetector volumetric CT imaging of the chest was done. Axial MIP volume rendering provided. Sagittal and coronal reformatted images were obtained. This CT examination was performed using dose optimization techniques as appropriate, variously including the following: *Automated exposure control *Adjustment of mA and/or kV according to patient size (this includes techniques or standardized protocols for targeted exams where dose is matched to indication/reason for exam; i.e. extremities or head) *Use of iterative reconstruction technique DLP: 252 mGy-cm FINDINGS: LUNGS/PLEURA/AIRWAYS: Moderate to severe centrilobular emphysema is seen with more panlobular appearance in the superior segments of the lower lobes. No significantly enlarged/suspicious pulmonary nodules. A groundglass opacity in the left lower lobe measures approximately 1.5 cm (image 351, series 5). Mild lower lobe atelectasis or scarring is seen. There are no pleural effusions. The airways are patent. MEDIASTINUM: Ovoid nodule seen in the visualized lower pole of the left lower lobe measuring 1.3 cm, quite follow-up at this time. Mild to moderate atherosclerosis in the thoracic aorta most pronounced in the arch. There is dilatation of the ascending aorta up to 4.2 cm in AP dimension (image 30, series 3). Mild to moderate coronary artery calcifications are seen. No mediastinal or hilar lymphadenopathy. UPPER ABDOMEN: Innumerable hepatic cysts are seen penetrating fluid attenuation. Some demonstrate small calcifications. Partial visualization of aortic stent. MUSCULOSKELETAL: Multiple lytic lesions are seen throughout the visualized osseous structures including the thoracolumbar spine. Superior endplate compression deformity at T11 without significant change. SOFT TISSUES: Unremarkable. CT/CT chest wo IV con IMPRESSION: 1. Moderate to severe emphysema as detailed above. Small ground glass opacity in the left lower lobe is nonspecific, but could represent a focal infectious/inflammatory process or chronic change. No suspicious pulmonary nodule requiring follow-up at this time following Fleischner Society guidelines. 2. Innumerable hepatic cirrhosis demonstrate overall benign features. 3. Ascending aortic aneurysm measuring up to 4.2 cm. 4. Multiple lytic lesions consistent with the patient's known multiple myeloma.
--- NOTE | ~2023-05-24 | XR_ITS ---
EXAMINATION: XR CHEST CLINICAL INFORMATION: Rule out pneumonia, history multiple myeloma COMPARISON: 07/13/2020 TECHNIQUE: Frontal view of the chest was obtained. FINDINGS: Lung volumes are symmetric. No focal consolidation is seen. No evidence of pneumothorax, pleural effusion, or pulmonary edema. Calcific density overlying the left upper lung is suspected to be related to the anterior left third rib Cardiac size is within normal limits. Calcification is present at the aortic arch. No acute osseous findings are seen. XR/XR chest 1V IMPRESSION: No acute cardiopulmonary findings.
[2023-05-24 05:01] LABS: Basophils Percent Auto 0.1 % (0-2); Eosinophils Percent Auto 0.4 % (0-4); Hemoglobin 14.3 g/dl (14.0-18.0); Lymphocytes Percent Auto 6.8 % (20-40); Mean Corpuscular Volume 97.7 fL (80.0-98.0); PLT CLUMP 1; Red Cell Distribution Width 13.4 % (11.0-16.0); SCAN SMEAR FLAG 1
[2023-05-24 05:03] LABS: Hematocrit 42.5 % (42.0-52.0); Imm Gran Abs Auto 0.05 X10*3/uL (0.00-0.03); Imm Gran Pct Auto 0.6 % (0.0-0.4); Lymphocytes Absolute Auto 0.6 X10*3/uL (1.2-4.9); Mean Corpuscular HGB Conc 33.6 g/dl (31.0-36.0); Mean Corpuscular Hemoglobin 32.9 pg (27.0-33.0); Mean Platelet Volume 11.1 fL (9.4-12.4); Monocytes Absolute Auto 0.8 X10*3/uL (0.1-1.2); Monocytes Percent Auto 9.3 % (2-11); Neutrophils Absolute Auto 6.7 x10*3/uL (2.0-8.3); Neutrophils Percent Auto 82.8 % (45-73); Red Blood Count 4.35 X10*6/uL (4.60-5.80)
[2023-05-24 05:08] LABS: MANUAL DIFF FLAG NO; Platelet Count 101 X10*3/uL (160-400); White Blood Count 8.1 X10*3/uL (4.8-10.8)
--- NOTE | 2023-05-24 05:10 | ED_ITS ---
HPI - Fever General Chief Complaint: Fever Stated Complaint: sore throat Time Seen by Provider: 05/24/23 04:48 Source: patient and family Mode of arrival: ambulatory Limitations: no limitations History of Present Illness HPI Narrative: Patient comes to the emergency room accompanied by his . Patient is complai sarika of a drenching sweat and a fever of 104.0. Patient is undergoing chemotherapy treatment for multiple myeloma with monthlydenosumab and for the chemo cycles dazalex, carfilzomib, decadron. According to the patient's , the patient always takes his temperature, usually runs around 97 F, the thermometer the use is reliable. Patient took acetaminophen prior to arrival. Patient states that he has been coughing more than usual and is complaining of a sore throat. Patient takes daily Bactrim and acyclovir for prophylaxis. Patient has chest pain or shortness of breath. Patient denies nausea vomiting or diarrhea. Related Data Home Medications Medication Instructions Recorded Confirmed ondansetron HCl 8 mg tablet 8 mg PO Q8H PRN Nausea 08/09/20 03/02/23 (Zofran) cholecalciferol (vit D3) 137.5 mcg See Rx Instructions .Route .COMPLEX 01/04/21 03/02/23 (5,500 unit)-vit K2 200 mcg tablet omega-3 fatty acids 1 cap PO DIRECTED 01/04/21 03/02/23 aspirin 81 mg chewable tablet 81 mg PO DAILY 03/02/23 03/02/23 meclizine 25 mg tablet 25 mg PO TID PRN 03/02/23 03/02/23 Previous Rx's Medication Instructions Recorded docusate sodium 100 mg capsule 200 mg PO BEDTIME #60 caps 01/21/22 (Colace) atorvastatin 40 mg tablet 40 mg PO BEDTIME #90 tabs 09/15/22 sulfamethoxazole 400 1 tab PO DAILY #90 tabs 01/09/23 mg-trimethoprim 80 mg tablet amlodipine 10 mg tablet (Norvasc) 10 mg PO DAILY #90 tabs 02/24/23 hydrochlorothiazide 25 mg tablet 25 mg PO DAILY #90 tabs 04/08/23 lisinopril 5 mg tablet 5 mg PO DAILY #90 tabs 04/08/23 metoprolol succinate 100 mg 100 mg PO DAILY #90 tabs 04/08/23 tablet,extended release 24 hr acyclovir 400 mg tablet 400 mg PO DAILY 05/11/23 finasteride 5 mg tablet 5 mg PO DAILY 90 days #90 tabs 05/19/23 Allergies Allergy/AdvReac Type Severity Reaction Status Date / Time oxycodone [OXYCODONE] AdvReac Severe vomiting, Verified 05/19/23 15:33 severe vomiting Review of Systems Review of Systems: Constitutional : No Weight loss, complaining of fever, drenching night sweats, No Fatigue, No Malaise ENT/Mouth : No Hearing loss, No Ear Pain, No Nasal Congestion, No Sinus Pain, No Hoarseness, No sore throat, No Rhinorrhea, No Swallowing Difficulty Eyes: No Eye Pain, No Swelling, No Redness, No Foreign Body, No Discharge, No Vision Changes Cardiovascular : No Chest Pain, No SOB, No Dyspnea on Exertion, No Orthopnea, No Edema, No Palpitations Respiratory : Complaining of productive cough, No Wheezing, No Smoke Exposure, No Dyspnea Gastrointestinal : No Nausea, No Vomiting, No Diarrhea, No Constipation, No abdominal Pain, No Hematochezia, No Melena Genitourinary : no irregular bleeding, No Dysuria, No Urinary Frequency, No Hematuria, No Urinary Incontinence, No Urgency, No Flank Pain, No Urinary Flow Changes, No Hesitancy Musculoskeletal : No joint pain, No Myalgias, No Joint Swelling Skin : No Skin Lesions, No rash Neuro : No Weakness, No Numbness, No Paresthesias, No Loss of Consciousness, No Dizziness, No Headache Psych : No Anxiety/Panic, No Depression, No SI/HI/AH/VH, No Social Issues, Heme/Lymph: No Bruising, No Bleeding,No Lymphadenopathy Endocrine : No Polyuria, No Polydipsia, No Temperature Intolerance PMFSH Past Medical History Medical History AAA (abdominal aortic aneurysm) HTN (hypertension) Leukopenia Multinodular thyroid Multiple myeloma Pancytopenia Statin intolerance Subclinical hyperthyroidism Vitamin D deficiency Surgical History History of AAA (abdominal aortic aneurysm) repair History of back surgery History of bone marrow biopsy Hx of hernia repair (07/08/18) Hx of tooth extraction Hx of umbilical hernia repair (06/28/13) Family History Family History Father CVD (cardiovascular disease) AAA (abdominal aortic aneurysm) Mother Stomach cancer Social History Social History Household Members: Spouse Housing: House Are you a primary hearing care professional to a significant other at home: No Do you presently have visiting nurse or other home services: No Alcohol intake: former Patient Tobacco Use Status: Former Tobacco user Quit Date: 11 yrs ago Years Smoked: 38 Smoked in Last 30 Days: No e-Cigarette/Vaping Use: Never Used Second Hand Smoke Exposure: No Use of substances other than those prescribed or required for medical reasons: No Special tiesha needs: No Agree to transfusion: Yes Advance Directives: Yes Advance Directives on File: Yes Advance Directives Date on File: 01/11/21 Current occupational status: employed and retired Cognitive needs: No Hearing needs: No Vision needs: No Physical Exam Vital Signs: Vital Signs: Last Vital Signs Temp 99.0 F 05/24/23 06:23 Pulse 62 05/24/23 06:23 Resp 17 05/24/23 06:23 BP 134/64 05/24/23 06:23 Pulse Ox 96 05/24/23 06:23 O2 Del Method Room Air 05/24/23 06:23 BMI result Body Mass Index 24.7 Const: Other: Appearance: Alert. Oriented X3. No acute distress. Eyes: Pupils equal, round and reactive to light. ENT: Pharynx normal. No exudates, no pharyngeal abscesses Neck: Normal inspection. Neck supple. No lymph nodes noted. No crepitus CVS: Normal heart rate and rhythm. Pulses normal. Normal S1 and S2 Respiratory: No respiratory distress. Rales on the left lung, good air movement bilaterally Abdomen: Soft and nontender. No rigidity. No distention. Skin: Skin warm and dry. Normal skin color. Normal skin turgor. Extremities: No lower extremity edema. No Lacerations. No Rash Neuro: Oriented X 3. No motor deficit. No sensory deficit. Moving all extremi ties. No slurred speech. CN 2 through 12 grossly intact Psych: calm, cooperative, normal affect Course Course Course Narrative: -of patient's labs and imaging pending Medications Administered Discontinued Medications Generic Name Dose Route Start Last Admin Trade Name Freq PRN Reason Stop Dose Admin Cefepime HCl 2 gm/ Sodium 50 mls @ 100 mls/hr 05/24/23 05:01 05/24/23 05:16 Chloride IV 05/24/23 05:30 100 mls/hr ONCE ONE Administration Sodium Chloride 1,000 mls @ 999 mls/hr 05/24/23 05:01 05/24/23 05:16 Ns IVCONT 05/24/23 06:01 999 mls/hr .Q1H1M ONE Administration Lidocaine/Diphenhydr/Alum/Mg/Simeth 10 ml 05/24/23 05:02 05/24/23 05:16 Mag&Al/Sim/Diphenhyd/Lidocaine 10 Ml Oral.Susp PO 05/24/23 05:03 10 ml ONCE ONE Administration Protocol Medical Decision Making Medical Decision Making [facility] Narrative: -I discussed with the patient that he is currently immunosuppressed, currently undergoing chemotherapy treatment. Patient spiked a high fever despite being on acyclovir and Bactrim. Patient given empirically 2 g of cefepime and IV fluids. Sepsis not suspect that at this time. I discussed with the patient and his the patient will be admitted -my interpretation of chest x-ray: No infiltrates -patient's white blood cell count 6.8, patient does not have neutropenic fever. Chemistry within normal limits. Chest x-ray negative, urinalysis negative, patient tested negative for COVID influenza and strep. Is unclear why patient developed such a high fever. -I discussed the patient with , patient admitted -since the patient has had URI symptoms, x-rays negative, we will go ahead and obtain a CT scan of the chest without contrast to rule out pneumonia. Differential Diagnosis Differential Diagnoses: The differential diagnosis associated with the presentation includes (Neutropenic fever, pneumonia, COVID, influenza, urinary tract infection) Admission/Observation Consideration of admission/observation: Escalation of care including admission/observation considered Consult Healthcare Provider Management of the patient was discussed with: Hospitalist Lab Data [facility] Lab Attestation statement: I reviewed the patient's lab results. 05/24/23 04:53 05/24/23 04:53 Labs: Lab Results 05/24/23 05/24/23 05/24/23 Range/Units 04:53 04:53 04:53 WBC 8.1 (4.8-10.8) X10*3/uL RBC 4.35 L (4.60-5.80) X10*6/uL Hgb 14.3 (14.0-18.0) g/dl Hct 42.5 (42.0-52.0) % MCV 97.7 (80.0-98.0) fL MCH 32.9 (27.0-33.0) pg MCHC 33.6 (31.0-36.0) g/dl RDW 13.4 (11.0-16.0) % Plt Count 101 L D (160-400) X10*3/uL MPV 11.1 (9.4-12.4) fL Immature Gran % (Auto) 0.6 H (0.0-0.4) % Neut % (Auto) 82.8 H (45-73) % Lymph % (Auto) 6.8 L (20-40) % [place] % (Auto) 9.3 (2-11) % Eos % (Auto) 0.4 (0-4) % Baso % (Auto) 0.1 (0-2) % Lymph # (Auto) 0.6 L (1.2-4.9) X10*3/uL [place] # (Auto) 0.8 (0.1-1.2) X10*3/uL Eos # (Auto) 0.0 (0.0-0.4) X10*3/uL Baso # (Auto) 0.0 (0.0-0.2) X10*3/uL Abs Immat Gran (auto) 0.05 H (0.00-0.03) X10*3/uL Absolute Neuts (auto) 6.7 (2.0-8.3) x10*3/uL Absolute Nucleated RBC 0.000 (0.0-0.012) X10*3/uL Nucleated RBC % (auto) 0.0 (0.0-0.2) /100WBC Sodium 139 (135-145) mmol/L Potassium 4.1 (3.3-5.1) mmol/L Chloride 107 (96-108) mmol/L Carbon Dioxide 21 L (22-29) mmol/L Anion Gap 15 (12-20) BUN 28 H (9-16) mg/dL Creatinine 1.17 (0.5-1.4) mg/dL Estim Creat Clear Calc 51.9 Estimated GFR > 60 Random Glucose 105 (60-115) mg/dL Lactic Acid 1.1 (0.5-2.0) mmol/L Calcium 9.5 (8.4-10.2) mg/dL Total Bilirubin 0.6 (0.0-1.0) mg/dL AST 28 (5-37) U/L ALT 14 (0-40) U/L Alkaline Phosphatase 70 (39-117) U/L Total Protein 6.4 L (6.5-8.0) g/dL Albumin 4.1 (3.5-5.0) g/dL COVID-19 (MILEY) (Negative) COVID-19 Clin Com Influenza Type A (NATALI) (Negative) Influenza Type B (NATALI) (Negative) Influenza A & B Note S. pyogenes GrpA NATALI (Negative) 05/24/23 05/24/23 05/24/23 Range/Units 04:53 04:53 05:24 WBC (4.8-10.8) X10*3/uL RBC (4.60-5.80) X10*6/uL Hgb (14.0-18.0) g/dl Hct (42.0-52.0) % MCV (80.0-98.0) fL MCH (27.0-33.0) pg MCHC (31.0-36.0) g/dl RDW (11.0-16.0) % Plt Count (160-400) X10*3/uL MPV (9.4-12.4) fL Immature Gran % (Auto) (0.0-0.4) % Neut % (Auto) (45-73) % Lymph % (Auto) (20-40) % [place] % (Auto) (2-11) % Eos % (Auto) (0-4) % Baso % (Auto) (0-2) % Lymph # (Auto) (1.2-4.9) X10*3/uL [place] # (Auto) (0.1-1.2) X10*3/uL Eos # (Auto) (0.0-0.4) X10*3/uL Baso # (Auto) (0.0-0.2) X10*3/uL Abs Immat Gran (auto) (0.00-0.03) X10*3/uL Absolute Neuts (auto) (2.0-8.3) x10*3/uL Absolute Nucleated RBC (0.0-0.012) X10*3/uL Nucleated RBC % (auto) (0.0-0.2) /100WBC Sodium (135-145) mmol/L Potassium (3.3-5.1) mmol/L Chloride (96-108) mmol/L Carbon Dioxide (22-29) mmol/L Anion Gap (12-20) BUN (9-16) mg/dL Creatinine (0.5-1.4) mg/dL Estim Creat Clear Calc Estimated GFR Random Glucose (60-115) mg/dL Lactic Acid (0.5-2.0) mmol/L Calcium (8.4-10.2) mg/dL Total Bilirubin (0.0-1.0) mg/dL AST (5-37) U/L ALT (0-40) U/L Alkaline Phosphatase (39-117) U/L Total Protein (6.5-8.0) g/dL Albumin (3.5-5.0) g/dL COVID-19 (MILEY) Negative (Negative) COVID-19 Clin Com See Note Influenza Type A (NATALI) Negative (Negative) Influenza Type B (NATALI) Negative (Negative) Influenza A & B Note See Note S. pyogenes GrpA NATALI Negative (Negative) Independent Interpretation I performed an independent interpretation of an: Plain X-Ray Radiology Impression Discussion of test interpretation with radiology: I have reviewed the radiologist's reading. Radiologist Impression: FINDINGS: Lung volumes are symmetric. No focal consolidation is seen. No evidence of pneumothorax, pleural effusion, or pulmonary edema. Calcific density overlying the left upper lung is suspected to be related to the anterior left third rib Cardiac size is within normal limits. Calcification is present at the aortic arch. No acute osseous findings are seen. XR/XR chest 1V IMPRESSION: No acute cardiopulmonary findings. Independent Historian Clinical information obtained from an independent historian. History obtained from or confirmed by: Spouse External Record Review External record reviewed: Inpatient record (I reviewed Dr. Beach note from Oncology, patient last seen on Jayna 30th, 2nd number 29 of chemotherapy was given.) Chronic Conditions Patient?s care impacted by: Other (Multiple myeloma) Critical Care Time Critical Care Time Critical Care Time: Yes Total Critical Care Time: 60 Attestation: I have personally provided critical care time. Time includes review of lab data, radiology results, discussion with consultants, and monitoring for potential decompensation. Intervention performed as documented. Discharge Plan Discharge Clinical Impression: Fever of unknown origin Patient Disposition: Admitted As Inpatient Prescriptions: No Action atorvastatin 40 mg tablet 40 mg PO BEDTIME Qty: 90 3RF sulfamethoxazole-trimethoprim 400-80 mg tablet 1 tab PO DAILY Qty: 90 6RF amlodipine [Norvasc] 10 mg tablet 10 mg PO DAILY Qty: 90 1RF metoprolol succinate 100 mg tablet extended release 24 hr 100 mg PO DAILY Qty: 90 1RF Rx Instructions: Schedule next PCP appt for future refills lisinopril 5 mg tablet 5 mg PO DAILY Qty: 90 1RF Rx Instructions: Schedule next PCP appt for future refills hydrochlorothiazide 25 mg tablet 25 mg PO DAILY Qty: 90 1RF Rx Instructions: Schedule next PCP appt for future refills acyclovir 400 mg tablet 400 mg PO DAILY 3RF ondansetron HCl [Zofran] 8 mg tablet 8 mg PO Q8H PRN (Reason: Nausea) omega-3 fatty acids Capsule 1 cap PO DIRECTED vitamin D3-vitamin K2 5,500-200 unit-mcg Tablet See Rx Instructions .ROUTE .COMPLEX Rx Instructions: take once a day aspirin 81 mg tablet,chewable 81 mg PO DAILY docusate sodium [Colace] 100 mg capsule 200 mg PO BEDTIME Qty: 60 5RF meclizine 25 mg tablet 25 mg PO TID PRN finasteride 5 mg tablet 5 mg PO DAILY 90 Days Qty: 90 1RF
[2023-05-24] MEDS: 0.9 % Sodium Chloride 1,000 ML 999 ML IVCONT (05:16)
[2023-05-24] MEDS: cefEPime HCl 2 GM in 0.9 % Sodium Chloride 50 ML IV (05:16)
[2023-05-24] MEDS: Mag&Al/Sim/Diphenhyd/Lidocaine 10 ML ORAL.SUSP PO (05:16)
[2023-05-24 05:17] LABS: Lactic Acid 1.1 mmol/L (0.5-2.0)
[2023-05-24 05:24] LABS: COVID-19 Test Negative (Negative); IDNOW Serial# 9DB6401D; IDNOW Serial# BCCEAD1C; Influenza A Negative (Negative); Influenza B2 Negative (Negative)
[2023-05-24 05:25] LABS: Alanine Aminotransferase 14 U/L (0-40); Albumin Level 4.1 g/dL (3.5-5.0); Alkaline Phosphatase 70 U/L (39-117); Anion Gap 15 (12-20); Aspartate Amino Transferase 28 U/L (5-37); Bilirubin Total 0.6 mg/dL (0.0-1.0); Blood Urea Nitrogen 28 mg/dL (9-16); Calcium 9.5 mg/dL (8.4-10.2); Carbon Dioxide 21 mmol/L (22-29); Chloride 107 mmol/L (96-108); Creatinine Clr Calc Pharmacy 51.9; Estimated Glomerular Filt Rate > 60; Glucose Random 105 mg/dL (60-115); Potassium 4.1 mmol/L (3.3-5.1); Sodium 139 mmol/L (135-145); Total Protein 6.4 g/dL (6.5-8.0)
[2023-05-24 05:46] LABS: IDNOW Serial# 6674DD1D; Strep A Nucleic Acid Negative (Negative)
--- NOTE | 2023-05-24 09:28 | PHA.MEDREC ---
Pharmacy Consult ? Medication Reconciliation Pharmacy has completed the medication reconciliation. Spoke to patient to confirm meds.
[2023-05-24] MEDS: amLODIPine Besylate 10 MG TABLET PO (10:35)
[2023-05-24] MEDS: Aspirin 81 MG TAB.CHEW PO (10:35)
[2023-05-24] MEDS: Metoprolol Succinate ER 100 MG TAB.ER.24H PO (10:35)
[2023-05-24] MEDS: Finasteride 5 MG TABLET PO (10:36)
[2023-05-24] MEDS: Acyclovir 200 MG CAPSULE 400 MG PO (10:36)
[2023-05-24] MEDS: lisinopriL 5 MG TABLET PO (10:36)
[2023-05-24] MEDS: hydroCHLOROthiazide 25 MG TABLET PO (10:36)
[2023-05-24 11:33] LABS: Appearance Urine Clear; Color Urine Yellow; Glucose Urine UA Negative (Negative); Leukocyte Esterase Urine Negative (Negative); Nitrite Urine Negative (Negative); PH 5.5 (5.0-9.0); Specific Gravity - Urine 1.015 (1.005-1.025); Urine Blood Negative (Negative); Urine Ketones Negative (Negative); Urine Protein Negative (Neg-Trace)
--- NOTE | 2023-05-24 12:26 | PM.IMHP ---
History of Present Illness Date of Service: 05/24/23 Attending physician on admission: Dalia Ruby Chief Complaint: productive cough, fever 77-year-old male with history of AAA s/p repair with grafting, peripheral vascular disease, coronary artery disease, hypertension, vitamin-D deficiency, subclinical hyperthyroidism, multinodular thyroid, and multiple myeloma on chemotherapy most recent was 05/22 presented to the ED earlier today with his for evaluation of productive cough and fevers. Patient reports about 1 week ago developed throat irritation and gradually worsening productive cough with yellow sputum production. Last night had fevers up to 104 given Motrin and woke this morning drenched in sweats with temperature of 100.2 degrees. Prior to this, denies any fevers, chills, nasal congestion, abdominal pain, nausea, vomiting, hemoptysis, shortness of breath, lightheadedness, or chest pain. reports he had similar symptoms about 2 years ago and developed metabolic encephalopathy required prolonged hospitalization for pneumonia. On arrival, there is no leukocytosis or leukopenia. Renal function and electrolyte levels are normal. Urinalysis unremarkable. Negative for COVID-19. Full viral respiratory panel pending. Chest x-ray negative for any acute cardiopulmonary abnormality. Subsequent chest CT showing small ground-glass opacity in the left lower lobe that is nonspecific but could represent focal infectious versus inflammatory process or chronic change. There is also moderate to severe emphysema, and numeral bowl hepatic cirrhosis admits demonstrates overall benign findings, and ascending aortic aneurysm measuring 4.2 cm as well as multiple lytic lesions consistent with known multiple myeloma. In the ED, given IV cefepime, as well as administrations of home medications including amlodipine, hydrochlorothiazide, lisinopril, metoprolol, finasteride, aspirin, and acyclovir. [facility]. Review of Systems Review of Systems: General: No fevers, malaise, unintentional weight loss HEENT: +sore throat . No nasal congestion, rhinorrhea, sinus pain, ear pain Cardiovascular: No chest pain, palpitations, or leg edema Respiratory: +cough. No shortness of breath, wheezing GI: No abdominal pain, nausea, vomiting, diarrhea, constipation, melena, hematochezia : No dysuria, hematuria, increased urinary frequency, decreased urinary output MSK: No myalgia, back pain Neuro: No headaches, weakness, paresthesias Skin: No rashes or lesions [facility] Medical History (Updated 05/24/23 @ 12:54 by JODI Carlos) AAA (abdominal aortic aneurysm) HTN (hypertension) Leukopenia Multinodular thyroid Multiple myeloma Pancytopenia Pneumonia Statin intolerance Subclinical hyperthyroidism Vitamin D deficiency Family History Father CVD (cardiovascular disease) AAA (abdominal aortic aneurysm) Mother Stomach cancer Surgical History History of AAA (abdominal aortic aneurysm) repair History of back surgery History of bone marrow biopsy Hx of hernia repair (07/08/18) Hx of tooth extraction Hx of umbilical hernia repair (06/28/13) Social History Household Members: Spouse Housing: House Are you a primary wound care nurse to a significant other at home: No Do you presently have visiting nurse or other home services: No Alcohol intake: former Patient Tobacco Use Status: Former Tobacco user Quit Date: 11 yrs ago Years Smoked: 38 Smoked in Last 30 Days: No e-Cigarette/Vaping Use: Never Used Second Hand Smoke Exposure: No Use of substances other than those prescribed or required for medical reasons: No Special tiesha needs: No Agree to transfusion: Yes Advance Directives: Yes Advance Directives on File: Yes Advance Directives Date on File: 01/11/21 Current occupational status: employed and retired Cognitive needs: No Hearing needs: No Vision needs: No Meds Allergies Allergy/AdvReac Type Severity Reaction Status Date / Time oxycodone [OXYCODONE] AdvReac Severe vomiting, Verified 05/19/23 15:33 severe vomiting Active Medications: Current Medications Acetaminophen (Acetaminophen 325 Mg Tablet) 650 mg PO Q6H PRN PRN Reason: Pain, Mild (Pain Scale 1-3) Acyclovir (Acyclovir 200 Mg Capsule) 400 mg PO DAILY [facility] Last Admin: 05/24/23 10:36 Dose: 400 mg Amlodipine Besylate (Amlodipine Besylate 10 Mg Tablet) 10 mg PO DAILY [facility]; Protocol Last Admin: 05/24/23 10:35 Dose: 10 mg Aspirin (Aspirin 81 Mg Tab.Chew) 81 mg PO DAILY [facility] Last Admin: 05/24/23 10:35 Dose: 81 mg Atorvastatin Calcium (Atorvastatin Calcium 40 Mg Tablet) 40 mg PO BEDTIME [facility] Enoxaparin Sodium (Enoxaparin Sodium 40 Mg/0.4 Ml Syringe) 40 mg SUBCUT Q24H [facility] Finasteride (Finasteride 5 Mg Tablet) 5 mg PO DAILY [facility] Last Admin: 05/24/23 10:36 Dose: 5 mg Hydrochlorothiazide (Hydrochlorothiazide 25 Mg Tablet) 25 mg PO DAILY [facility]; Protocol Last Admin: 05/24/23 10:36 Dose: 25 mg Ceftriaxone Sodium 1 gm/ (Sodium Chloride) 50 mls @ 100 mls/hr IV Q24H [facility] Azithromycin 500 mg/ Sodium (Chloride) 250 mls @ 125 mls/hr IV Q24H [facility] Lisinopril (Lisinopril 5 Mg Tablet) 5 mg PO DAILY [facility]; Protocol Last Admin: 05/24/23 10:36 Dose: 5 mg Meclizine HCl (Meclizine Hcl 25 Mg Tablet) 25 mg PO TID PRN PRN Reason: Motion Sickness Metoprolol Succinate (Metoprolol Succinate Er 100 Mg Tab.Er.24h) 100 mg PO DAILY [facility]; Protocol Last Admin: 05/24/23 10:35 Dose: 100 mg Ondansetron HCl (Ondansetron Hcl 4 Mg/2 Ml Vial) 4 mg IVPUSH Q8H PRN PRN Reason: Nausea and Vomiting Pharmacy Consult (Consult Rx Perform Med Rec) 1 each MISCELLANE ONCE PRN PRN Reason: Consult order Senna (Sennosides 8.6 Mg Tablet) 17.2 mg PO BEDTIME PRN PRN Reason: Constipation Sodium Chloride (0.9 % Sodium Chloride Flush 3 Ml Syringe) 3 ml IVFLUSH QSHIFT [facility] Home Medications Medication Instructions Recorded Confirmed Last Taken Type aspirin 81 mg chewable tablet 81 mg PO DAILY 03/02/23 05/24/23 05/23/23 09:00 History meclizine 25 mg tablet 25 mg PO TID PRN Motion Sickness 03/02/23 05/24/23 Unknown History cholecalciferol (vit D3) 137.5 mcg 1 tab PO DAILY 05/24/23 05/24/23 05/23/23 09:00 History (5,500 unit)-vit K2 200 mcg tablet omega-3s 300 oy-bdo-enc-other 1 cap PO BEDTIME 05/24/23 05/24/23 05/22/23 History [id number] oil 1,000 mg capsule ([place]-3 Fish Oil) ondansetron 8 mg disintegrating 8 mg PO Q8H PRN Nausea 05/24/23 05/24/23 Unknown History tablet Physical Exam Vital Signs and Narrative: Vital Signs: Last Vital Signs Temp 98.6 F 05/24/23 07:22 Pulse 76 05/24/23 10:05 Resp 18 05/24/23 10:05 BP 138/64 05/24/23 10:05 Pulse Ox 95 05/24/23 10:05 O2 Del Method Room Air 05/24/23 10:05 BMI result Body Mass Index 24.7 Constitutional - Awake and Alert, No apparent distress Eyes - PERRLA, EOMI Cardiovascular - S1S2, RRR, No edema Respiratory - Normal lung expansion, Normal respiratory effort, No respiratory distress, CTA bilaterally Gastrointestinal - NT / ND; +BS; No rebound or guarding Extremities - no calf tenderness bilaterally, no swelling Skin - Warm/Dry Neurological - Alert & oriented x3 Psychological - Appropriate affect Results Labs 05/24/23 04:53 05/24/23 04:53 Labs: Laboratory Results - last 24 hr 05/24/23 05/24/23 05/24/23 04:53 04:53 04:53 MCV 97.7 MCH 32.9 MCHC 33.6 RDW 13.4 Plt Count 101 L D MPV 11.1 Immature Gran % (Auto) 0.6 H Neut % (Auto) 82.8 H Lymph % (Auto) 6.8 L [place] % (Auto) 9.3 Eos % (Auto) 0.4 Baso % (Auto) 0.1 Lymph # (Auto) 0.6 L [place] # (Auto) 0.8 Eos # (Auto) 0.0 Baso # (Auto) 0.0 Abs Immat Gran (auto) 0.05 H Absolute Neuts (auto) 6.7 Absolute Nucleated RBC 0.000 Nucleated RBC % (auto) 0.0 Anion Gap 15 Estim Creat Clear Calc 51.9 Estimated GFR > 60 Random Glucose 105 Lactic Acid 1.1 Calcium 9.5 Total Bilirubin 0.6 AST 28 ALT 14 Alkaline Phosphatase 70 Total Protein 6.4 L Albumin 4.1 Urine Color Urine Appearance Urine pH Ur Specific Smith Urine Protein Urine Glucose (UA) Urine Ketones Urine Blood Urine Nitrite Ur Leukocyte Esterase Respiratory Panel G[place] Adenovirus (Rapid PCR) B.pert (TEM-PCR) B.parapertussis DNA PCR C. pneumoniae DNA (PCR) Coronavirus OC43 (PCR) Coronavirus HKU1 (PCR) Coronavirus 229E (PCR) COVID-19 (MILEY) COVID-19 Clin Com Coronavirus NL63 (PCR) Human Metapneumovir PCR Influenza Type A (NATALI) Influenza A (RT-PCR) Influenza Type B (NATALI) Influenza B (RT-PCR) Influenza A & B Note M. pneumoniae (PCR) Parainfluenza 1 (PCR) Parainfluenza 2 (PCR) Parainfluenza 3 (PCR) Parainfluenza 4 (PCR) RSV (PCR) Entero/Rhino (PCR) SARS-CoV-2 RNA (RT-PCR) S. pyogenes GrpA NATALI 05/24/23 05/24/23 05/24/23 04:53 04:53 05:24 MCV MCH MCHC RDW Plt Count MPV Immature Gran % (Auto) Neut % (Auto) Lymph % (Auto) [place] % (Auto) Eos % (Auto) Baso % (Auto) Lymph # (Auto) [place] # (Auto) Eos # (Auto) Baso # (Auto) Abs Immat Gran (auto) Absolute Neuts (auto) Absolute Nucleated RBC Nucleated RBC % (auto) Anion Gap Estim Creat Clear Calc Estimated GFR Random Glucose Lactic Acid Calcium Total Bilirubin AST ALT Alkaline Phosphatase Total Protein Albumin Urine Color Urine Appearance Urine pH Ur Specific Smith Urine Protein Urine Glucose (UA) Urine Ketones Urine Blood Urine Nitrite Ur Leukocyte Esterase Respiratory Panel [place] Adenovirus (Rapid PCR) B.pert (TEM-PCR) B.parapertussis DNA PCR C. pneumoniae DNA (PCR) Coronavirus OC43 (PCR) Coronavirus HKU1 (PCR) Coronavirus 229E (PCR) COVID-19 (MILEY) Negative COVID-19 Clin Com See Note Coronavirus NL63 (PCR) Human Metapneumovir PCR Influenza Type A (NATALI) Negative Influenza A (RT-PCR) Influenza Type B (NATALI) Negative Influenza B (RT-PCR) Influenza A & B Note See Note M. pneumoniae (PCR) Parainfluenza 1 (PCR) Parainfluenza 2 (PCR) Parainfluenza 3 (PCR) Parainfluenza 4 (PCR) RSV (PCR) Entero/Rhino (PCR) SARS-CoV-2 RNA (RT-PCR) S. pyogenes GrpA NATALI Negative 05/24/23 05/24/23 09:04 11:53 MCV MCH MCHC RDW Plt Count MPV Immature Gran % (Auto) Neut % (Auto) Lymph % (Auto) [place] % (Auto) Eos % (Auto) Baso % (Auto) Lymph # (Auto) [place] # (Auto) Eos # (Auto) Baso # (Auto) Abs Immat Gran (auto) Absolute Neuts (auto) Absolute Nucleated RBC Nucleated RBC % (auto) Anion Gap Estim Creat Clear Calc Estimated GFR Random Glucose Lactic Acid Calcium Total Bilirubin AST ALT Alkaline Phosphatase Total Protein Albumin Urine Color Yellow Urine Appearance Clear Urine pH 5.5 Ur Specific Smith 1.015 Urine Protein Negative Urine Glucose (UA) Negative Urine Ketones Negative Urine Blood Negative Urine Nitrite Negative Ur Leukocyte Esterase Negative Respiratory Panel G[place]vara Cancelled Adenovirus (Rapid PCR) Cancelled B.pert (TEM-PCR) Cancelled B.parapertussis DNA PCR Cancelled C. pneumoniae DNA (PCR) Cancelled Coronavirus OC43 (PCR) Cancelled Coronavirus HKU1 (PCR) Cancelled Coronavirus 229E (PCR) Cancelled COVID-19 (MILEY) COVID-19 Clin Com Coronavirus NL63 (PCR) Cancelled Human Metapneumovir PCR Cancelled Influenza Type A (NATALI) Influenza A (RT-PCR) Cancelled Influenza Type B (NATALI) Influenza B (RT-PCR) Cancelled Influenza A & B Note M. pneumoniae (PCR) Cancelled Parainfluenza 1 (PCR) Cancelled Parainfluenza 2 (PCR) Cancelled Parainfluenza 3 (PCR) Cancelled Parainfluenza 4 (PCR) Cancelled RSV (PCR) Cancelled Entero/Rhino (PCR) Cancelled SARS-CoV-2 RNA (RT-PCR) Cancelled S. pyogenes GrpA NATALI Imaging Radiologist's Impressions: Impressions Chest X-Ray 05/24/23 05:09 IMPRESSION: No acute cardiopulmonary findings. Chest CT 05/24/23 07:29 IMPRESSION: 1. Moderate to severe emphysema as detailed above. Small ground glass opacity in the left lower lobe is nonspecific, but could represent a focal infectious/inflammatory process or chronic change. No suspicious pulmonary nodule requiring follow-up at this time following Fleischner Society guidelines. 2. Innumerable hepatic cirrhosis demonstrate overall benign features. 3. Ascending aortic aneurysm measuring up to 4.2 cm. 4. Multiple lytic lesions consistent with the patient's known multiple myeloma. Assessment and Plan (1) Pneumonia: Status: Acute Plan 77-year-old male with history of AAA s/p repair with grafting, peripheral vascular disease, coronary artery disease, hypertension, vitamin-D deficiency, subclinical hyperthyroidism, multinodular thyroid, and multiple myeloma on chemotherapy most recent was 05/22 to be observed for left lower lobe pneumonia in immunocompromised patient # acute left lower lobe pneumonia -no leukocytosis/leukopenia. Febrile at home to 104. Vital stable in the ED, no sepsis -IV ceftriaxone and azithromycin (initiated 05/24) -viral respiratory panel pending -symptomatic management -sputum culture, Legionella antigen, strep pneumo antigen pending -follow CBC, blood cultures # multiple myeloma -follows outpatient with Dr. Beach in Oncology -Was on Daratumumab and Decadron, now every other week for maintenance (carfilzomib has been omitted) -on denosumab q.3 months -continue vitamin-D, acyclovir -Reviewed last onc note # hypertension-reasonably controlled -continue lisinopril, hydrochlorothiazide, metoprolol, amlodipine # HLD/PVD -continue ASA, statin # BPH -continue finasteride DVT prophylaxis-Lovenox Full code Time Spent With Patient Time: Total time managing care of this patient today ____ minutes. Quality Stroke Does the patient have a stroke diagnosis?: No VTE Prior VTE?: No VTE Risk Level:: Medical - moderate - high VTE Device Contraindication: Treatment Not Indicated VTE Drug Contraindication: N/A - Med Ordered
[2023-05-24] MEDS: Enoxaparin Sodium 40 MG/0.4 ML SYRINGE SUBCUT (12:41)
[2023-05-24] MEDS: Azithromycin 500 MG in 0.9 % Sodium Chloride 250 ML 125 MG IV (12:41)
[2023-05-24] MEDS: cefTRIAXone sodium 1 GM in 0.9 % Sodium Chloride 50 ML IV (12:46)
[2023-05-24 12:48] LABS: Parainfluenza 3 PCR Detected (Not Detect.)
[2023-05-24 12:49] LABS: Adenovirus PCR Not Detected (Not Detect.); Bordetella parapertussis PCR Not Detected (Not Detect.); Bordetella pertussis PCR Not Detected (Not Detect.); Chlamydia pneumoniae PCR Not Detected (Not Detect.); Coronavirus 229E PCR Not Detected (Not Detect.); Coronavirus HKU1 PCR Not Detected (Not Detect.); Coronavirus NL63 PCR Not Detected (Not Detect.); Coronavirus OC43 PCR Not Detected (Not Detect.); Human metapneumovirus PCR Not Detected (Not Detect.); Influenza A PCR Not Detected (Not Detect.); Influenza B PCR Not Detected (Not Detect.); Mycoplasma pneumoniae PCR Not Detected (Not Detect.); Parainfluenza 1 PCR Not Detected (Not Detect.); Parainfluenza 2 PCR Not Detected (Not Detect.); Parainfluenza 4 PCR Not Detected (Not Detect.); RSV PCR Not Detected (Not Detect.); Rhino/Enterovirus PCR Not Detected (Not Detect.); SARS-CoV-2 PCR Not Detected (Not Detect.)
[2023-05-24] MEDS: ondansetron HCL 4 MG/2 ML VIAL IVPUSH (13:15)
[2023-05-24] MEDS: 0.9 % Sodium Chloride Flush 3 ML SYRINGE IVFLUSH ×2 (14:47→21:45)
--- NOTE | 2023-05-24 16:47 | PC.NURSE ---
tested positive for parainfluenza , placed on droplet precautions.
--- NOTE | 2023-05-24 18:23 | PC.NURSE ---
Report given to accepting unit, transport aware.
[2023-05-24] MEDS: Acetaminophen 325 MG TABLET 650 MG PO (19:06)
[2023-05-24] MEDS: Atorvastatin Calcium 40 MG TABLET PO (21:44)
[2023-05-25] VITALS: BP 140/72; PULSE 62; RESP 20; TEMP 36.9; O2SAT 96
--- NOTE | 2023-05-25 03:07 | PC.NURSE ---
Assumed care for patient at approx 1855, admitted from ED to 474. A&Ox4, cooperative with care. at bedside. No c/o dyspnea or SOB. Maintaining O2 sats on room air. Red socks/ wrist band applied for high falls risk. Patient refusing bed alarm and video monitor. Steady on feet and able to ring call zambrano appropriately. Tylenol for c/o headache with effect. Droplet precautions maintained.
[2023-05-25 03:34] VITALS: BP 126/76; PULSE 80; RESP 20; TEMP 36.1; O2SAT 95
[2023-05-25 07:53] VITALS: BP 138/77; PULSE 67; RESP 19; TEMP 36.5; O2SAT 97
[2023-05-25] MEDS: ondansetron HCL 4 MG/2 ML VIAL IVPUSH (07:53)
[2023-05-25] MEDS: 0.9 % Sodium Chloride Flush 3 ML SYRINGE IVFLUSH (07:53)
[2023-05-25 07:57] LABS: MANUAL DIFF FLAG NO
[2023-05-25 08:08] LABS: Basophils Percent Auto 0.2 % (0-2); Eosinophils Percent Auto 0.7 % (0-4); Hematocrit 41.1 % (42.0-52.0); Hemoglobin 13.8 g/dl (14.0-18.0); Imm Gran Abs Auto 0.01 X10*3/uL (0.00-0.03); Imm Gran Pct Auto 0.2 % (0.0-0.4); Lymphocytes Absolute Auto 0.4 X10*3/uL (1.2-4.9); Lymphocytes Percent Auto 7.7 % (20-40); Mean Corpuscular HGB Conc 33.6 g/dl (31.0-36.0); Mean Corpuscular Hemoglobin 32.5 pg (27.0-33.0); Mean Corpuscular Volume 96.9 fL (80.0-98.0); Mean Platelet Volume 11.3 fL (9.4-12.4); Monocytes Absolute Auto 0.6 X10*3/uL (0.1-1.2); Monocytes Percent Auto 12.5 % (2-11); Neutrophils Absolute Auto 3.6 x10*3/uL (2.0-8.3); Neutrophils Percent Auto 78.7 % (45-73); Red Blood Count 4.24 X10*6/uL (4.60-5.80); Red Cell Distribution Width 13.2 % (11.0-16.0); White Blood Count 4.6 X10*3/uL (4.8-10.8)
[2023-05-25 08:26] LABS: Platelet Count 79 X10*3/uL (160-400)
--- NOTE | 2023-05-25 09:34 | MHC.CM.PN ---
CM ATTEMPTED TO MEET W/PT HOWEVER PT IN BR STATING, I HAD A BOUT OF DIARRHEA CM TO REVISIT AFTER AM ROUNDS.
--- NOTE | 2023-05-25 10:39 | PM.DS ---
DS: Providers Provider Date of Service: 05/25/23 Date of admission: 05/24/23 12:18 Primary care physician: LUIS HoffmanPRodger Consults: 05/24/23 12:37 Consult to Hematology / Oncology Routine Consulting Provider: Екатерина Beach Reason for consultation: LLL pneumonia. MM patient DS: Diagnosis Discharge Diagnosis (1) Pneumonia: Status: Acute DS: Summary Hospital Course Hospital Course: Admission note HPI 77-year-old male with history of AAA s/p repair with grafting, peripheral vascular disease, coronary artery disease, hypertension, vitamin-D deficiency, subclinical hyperthyroidism, multinodular thyroid, and multiple myeloma on chemotherapy most recent was 05/22 presented to the ED earlier today with his for evaluation of productive cough and fevers.? Patient reports about 1 week ago developed throat irritation and gradually worsening productive cough with yellow sputum production.? Last night had fevers up to 104 given Motrin and woke this morning drenched in sweats with temperature of 100.2 degrees.? Prior to this, denies any fevers, chills, nasal congestion, abdominal pain, nausea, vomiting, hemoptysis, shortness of breath, lightheadedness, or chest pain.? reports he had similar symptoms about 2 years ago and developed metabolic encephalopathy required prolonged hospitalization for pneumonia. On arrival, there is no leukocytosis or leukopenia.? Renal function and electrolyte levels are normal.? Urinalysis unremarkable.? Negative for COVID-19.? Full viral respiratory panel pending.? Chest x-ray negative for any acute cardiopulmonary abnormality.? Subsequent chest CT showing small ground-glass opacity in the left lower lobe that is nonspecific but could represent focal infectious versus inflammatory process or chronic change.? There is also moderate to severe emphysema, and numeral bowl hepatic cirrhosis admits demonstrates overall benign findings, and ascending aortic aneurysm measuring 4.2 cm as well as multiple lytic lesions consistent with known multiple myeloma.? In the ED, given IV cefepime, as well as administrations of home medications including amlodipine, hydrochlorothiazide, lisinopril, metoprolol, finasteride, aspirin, and acyclovir. He follows outpt in oncologywt Dr. Beach. Hospital course The patient was admitted for evaluation of fever. CT scan was concerning for possible small opacity that might resemble inflammation\infection. No infiltrates was reported, no leukocytosis or lactic acidosis. The patient mainly complained of sore throat and cough. Respiratory panel test came positive for PArainfluenza virus infection which explains his current presentation. Advised to continue his home medications including Bactrim and to focus more on supportive measures for viral infection. You will need supportive measures: rest, fluids and pain medication (Tylenol+Advil) Continue Bactrim as prescribed To follow with oncology as outpatient as planned Please come back to the hospital for any worsening fever or difficulties breahting Time Spent with Patient Time attestation: Total time managing care of this patient today ____ minutes. Discharge coordination time: Less than 30 minutes Quality: Safe Use of Opioids Does Pt have an Active Cancer Diagnosis on the Problem List?: No Quality: Stroke Does the patient have a stroke diagnosis?: No Physical Exam Vital Signs: Vital Signs: Last Vital Signs Temp 97.7 F 05/25/23 07:53 Pulse 67 05/25/23 07:53 Resp 19 05/25/23 07:53 BP 138/77 05/25/23 07:53 Pulse Ox 97 05/25/23 07:53 O2 Del Method Room Air 05/25/23 07:53 BMI result Body Mass Index 24.3 Const: Other: Constitutional : Awake, interactive, not in distress Neck : Normal inspection, Supple Cardiovascular : RRR, no JVP, no lower extremity edema Respiratory : good bilateral air entry, no crackles, wheezes or rhonchi Gastrointestinal: soft, lax, Normal bowel sounds, Non tender Skin : Warm, Dry Neurological : Alert & oriented x3, No focal deficit DS: Data Data Completed and Pending Labs on day of discharge: Laboratory Results - last 24 hr 05/24/23 05/24/23 05/24/23 09:04 11:40 11:53 WBC RBC Hgb Hct MCV MCH MCHC RDW Plt Count MPV Immature Gran % (Auto) Neut % (Auto) Lymph % (Auto) Ector % (Auto) Eos % (Auto) Baso % (Auto) Lymph # (Auto) Ector # (Auto) Eos # (Auto) Baso # (Auto) Abs Immat Gran (auto) Absolute Neuts (auto) Absolute Nucleated RBC Nucleated RBC % (auto) Urine Color Yellow Urine Appearance Clear Urine pH 5.5 Ur Specific Carlton 1.015 Urine Protein Negative Urine Glucose (UA) Negative Urine Ketones Negative Urine Blood Negative Urine Nitrite Negative Ur Leukocyte Esterase Negative Respiratory Panel Guevara See Note Cancelled Adenovirus (Rapid PCR) Not Detected Cancelled B.pert (TEM-PCR) Not Detected Cancelled B.parapertussis DNA PCR Not Detected Cancelled C. pneumoniae DNA (PCR) Not Detected Cancelled Coronavirus OC43 (PCR) Not Detected Cancelled Coronavirus HKU1 (PCR) Not Detected Cancelled Coronavirus 229E (PCR) Not Detected Cancelled Coronavirus NL63 (PCR) Not Detected Cancelled Human Metapneumovir PCR Not Detected Cancelled Influenza A (RT-PCR) Not Detected Cancelled Influenza B (RT-PCR) Not Detected Cancelled M. pneumoniae (PCR) Not Detected Cancelled Parainfluenza 1 (PCR) Not Detected Cancelled Parainfluenza 2 (PCR) Not Detected Cancelled Parainfluenza 3 (PCR) Detected A Cancelled Parainfluenza 4 (PCR) Not Detected Cancelled RSV (PCR) Not Detected Cancelled Entero/Rhino (PCR) Not Detected Cancelled SARS-CoV-2 RNA (RT-PCR) Not Detected Cancelled 05/25/23 07:48 WBC 4.6 L RBC 4.24 L Hgb 13.8 L Hct 41.1 L MCV 96.9 MCH 32.5 MCHC 33.6 RDW 13.2 Plt Count 79 L MPV 11.3 Immature Gran % (Auto) 0.2 Neut % (Auto) 78.7 H Lymph % (Auto) 7.7 L Ector % (Auto) 12.5 H Eos % (Auto) 0.7 Baso % (Auto) 0.2 Lymph # (Auto) 0.4 L Ector # (Auto) 0.6 Eos # (Auto) 0.0 Baso # (Auto) 0.0 Abs Immat Gran (auto) 0.01 Absolute Neuts (auto) 3.6 Absolute Nucleated RBC 0.000 Nucleated RBC % (auto) 0.0 Urine Color Urine Appearance Urine pH Ur Specific Carlton Urine Protein Urine Glucose (UA) Urine Ketones Urine Blood Urine Nitrite Ur Leukocyte Esterase Respiratory Panel Guevara Adenovirus (Rapid PCR) B.pert (TEM-PCR) B.parapertussis DNA PCR C. pneumoniae DNA (PCR) Coronavirus OC43 (PCR) Coronavirus HKU1 (PCR) Coronavirus 229E (PCR) Coronavirus NL63 (PCR) Human Metapneumovir PCR Influenza A (RT-PCR) Influenza B (RT-PCR) M. pneumoniae (PCR) Parainfluenza 1 (PCR) Parainfluenza 2 (PCR) Parainfluenza 3 (PCR) Parainfluenza 4 (PCR) RSV (PCR) Entero/Rhino (PCR) SARS-CoV-2 RNA (RT-PCR) Preliminary micro results at discharge 05/24/23 04:53 Blood Culture - Preliminary Blood - Venous No growth after 24 hours. 05/24/23 04:53 Blood Culture - Preliminary Blood - Venous No growth after [address] scan - chest: Radiologist's impression: ITS Impressions Chest X-Ray 05/24/23 05:09 IMPRESSION: No acute cardiopulmonary findings. Chest CT 05/24/23 07:29 IMPRESSION: 1. Moderate to severe emphysema as detailed above. Small ground glass opacity in the left lower lobe is nonspecific, but could represent a focal infectious/inflammatory process or chronic change. No suspicious pulmonary nodule requiring follow-up at this time following Fleischner Society guidelines. 2. Innumerable hepatic cirrhosis demonstrate overall benign features. 3. Ascending aortic aneurysm measuring up to 4.2 cm. 4. Multiple lytic lesions consistent with the patient's known multiple myeloma. Discharge Plan Discharge Anticipated Discharge Date/Time: 05/25/23 10:27 Patient Disposition: Home, Self-Care Discharge Diagnosis: Parainfluenza virus infection Referrals: Tho Cruz [employer]CHNICIAN[employer] [Primary Care Provider] - 1 Week Discharge Medications: New benzonatate 100 mg Capsule 200 mg PO TID PRN (Reason: Cough) Qty: 30 0RF Continued atorvastatin 40 mg tablet 40 mg PO BEDTIME Qty: 90 3RF sulfamethoxazole-trimethoprim 400-80 mg tablet 1 tab PO DAILY Qty: 90 6RF amlodipine [Norvasc] 10 mg tablet 10 mg PO DAILY Qty: 90 1RF metoprolol succinate 100 mg tablet extended release 24 hr 100 mg PO DAILY Qty: 90 1RF Rx Instructions: Schedule next PCP appt for future refills lisinopril 5 mg tablet 5 mg PO DAILY Qty: 90 1RF Rx Instructions: Schedule next PCP appt for future refills hydrochlorothiazide 25 mg tablet 25 mg PO DAILY Qty: 90 1RF Rx Instructions: Schedule next PCP appt for future refills acyclovir 400 mg tablet 400 mg PO DAILY 3RF aspirin 81 mg tablet,chewable 81 mg PO DAILY ondansetron 8 mg tablet,disintegrating 8 mg PO Q8H PRN (Reason: Nausea) [place]-3 Fish Oil 300-1,000 mg Capsule 1 cap PO BEDTIME vitamin D3-vitamin K2 137.5-200 mcg Tablet 1 tab PO DAILY meclizine 25 mg tablet 25 mg PO TID PRN (Reason: Motion Sickness) finasteride 5 mg tablet 5 mg PO DAILY 90 Days Qty: 90 1RF Discharge Orders: Discharge Order (Routine); Ordered 05/25/23 Ordered By: Dalia Ruby Diet: Advance to usual diet Activity on Discharge: As tolerated Stand Alone Forms: Patient Portal Discharge page Care Plan Goals: Read below Health Concerns: Read below Plan of Treatment: Read below Assessment: You were admitted for evaluation of failure. started on IV antibiotics for possible pneumonia. Serology results showed an evidence of Parainfluenza virus infection. You will need supportive measures: rest, fluids and pain medication (Tylenol+Advil) Continue Bactrim as prescribed To follow with oncology as outpatient as planned Please come back to the hospital for any worsening fever or difficulties breahting
[2023-05-25 10:47] LABS: Anion Gap 13 (12-20); Blood Urea Nitrogen 15 mg/dL (9-16); Calcium 8.6 mg/dL (8.4-10.2); Carbon Dioxide 27 mmol/L (22-29); Chloride 103 mmol/L (96-108); Estimated Glomerular Filt Rate > 60; Glucose Random 89 mg/dL (60-115); Potassium 3.6 mmol/L (3.3-5.1); Sodium 139 mmol/L (135-145)
--- NOTE | 2023-05-25 12:15 | MHC.CM.PN ---
JORGE L 05/25/23, EMR REVIEWED, CM MET W/PT WHO REPORTS HE LIVES WITH , REPORTS HE IS INDEP W/CARE, DENIES USE OF DME/HOME SEVICES, PT DENIES NEED FOR VNA AN REPORTS HE HAS CHEMO BIMONTHLY W/DR YOUNG AND HAS MONTHLY MONOCLONAL ANTIBODY SHOTS ONCE A MONTH IN OFFICE WELL. PT CONFIRMS CLIFF ABBOTT IS HIS PCP, NOHELIA Alberto3 AND HCP IS PTS AND ON FILE IN [facility]. ANTIC D/C HOME TODAY NO NEW SERVICES AND RESUMPTION OF OUT PT CHEMO, WILL TRANSPORT
[2023-05-31 07:28] LABS: Legionella Ag Urine Not Detected (Not Detected)
[2023-05-31 15:43] LABS: Strep Pneumo Ag urine Not Detected (Not Detected)
== END 2023-05-25 12:33 | disposition home or self-care (01) ==
LOC: HO.ED 06:29 → HO.EDOVER 12:28 → HO.IMC 17:33
PROVIDERS: Admitting Provider Physician Assistant; Emergency Provider Emergency Medicine; PCP Nurse Practitioner Family; Visit Provider Student in an Organized Health Care Education/Training Program
DX: J44.0 Chronic obstructive pulmonary disease with (acute) lower respiratory infection (principal); J12.2 Parainfluenza virus pneumonia; C90.00 Multiple myeloma not having achieved remission; I10 Essential (primary) hypertension; E78.5 Hyperlipidemia, unspecified; R50.9 Fever, unspecified; I71.40 Abdominal aortic aneurysm, without rupture, unspecified; D84.9 Immunodeficiency, unspecified; I25.119 Atherosclerotic heart disease of native coronary artery with unspecified angina pectoris; Z79.69 Long term (current) use of other immunomodulators and immunosuppressants; Z79.899 Other long term (current) drug therapy; Z20.822 Contact with and (suspected) exposure to COVID-19
CPT/HCPCS: 36415; 71045; 71250; 80048; 80053; 81003; 83605; 85025; 87040; 87449; 87502; 87633; 87635; 87651; 87899; 96365; 96366; 96367; 96368; 96372; 96375; 96376; 99222; 99285; J0456; J0692; J0696; J1650; J2405

== ENCOUNTER → 2023-05-24 12:18 | Outpatient (BNV) | payer MEDICARE, SELFPAY | PROVIDERS: Admitting Provider Physician Assistant; Emergency Provider Emergency Medicine; PCP Nurse Practitioner Family; Visit Provider Physician Assistant | DX: J12.2 Parainfluenza virus pneumonia (principal) | CPT/HCPCS: 99222; 99238 ==

== ENCOUNTER 2023-06-11 07:57 | Outpatient (AMB) | payer MEDICARE, SELFPAY ==
--- NOTE | 2023-06-11 08:00 | MHC.PC.OV ---
Vital Signs 06/11/23 08:01 Height 5 ft 8 in Weight 162 lb 8 oz BMI 24.7 BP 132/80 Blood Pressure Location Lt brachial Position Sitting Pulse 56 Pulse Source Pulse Oximeter Pulse Oximetry (%) 99 Oxygen Delivery Method Room Air Intake Visit Reasons: pneumonia discharge f/u Allergies oxycodone [OXYCODONE] Adverse Reaction (Severe, Verified 06/11/23 08:04) vomiting, severe vomiting Medication List - Last Reconciled 06/11/23 by Tho Cruz [facility]- acyclovir 400 mg PO DAILY amlodipine (Norvasc) 10 mg PO DAILY aspirin 81 mg PO DAILY atorvastatin 40 mg PO BEDTIME benzonatate 200 mg (2 x 100 mg) PO TID PRN finasteride 5 mg PO DAILY 90 days hydrochlorothiazide 25 mg PO DAILY lisinopril 5 mg PO DAILY meclizine 25 mg PO TID PRN metoprolol succinate ER 100 mg PO DAILY [id number]-fish oil 300-1,000 mg ([place]-3 Fish Oil) 1 cap PO BEDTIME ondansetron 4 mg PO Q8H PRN ondansetron 8 mg PO Q8H PRN sulfamethoxazole-trimethoprim 400-80 mg 1 tab PO DAILY vitamin D3-vitamin K2 137.5-200 mcg 1 tab PO DAILY Tobacco use date assessed: 08/07/22 HPI pneumonia discharge f/u HPI Details Pt was seen in the ER on 05/24 c/o fever, cough, and sore throat. Labs were WNL. XR showed no acute findings. Subsequent chest CT showing small ground-glass opacity in the left lower lobe that is nonspecific but could represent focal infectious versus inflammatory process or chronic change. There is also moderate to severe emphysema, and numeral bowl hepatic cirrhosis admits demonstrates overall benign findings, and ascending aortic aneurysm measuring 4.2 cm as well as multiple lytic lesions consistent with known multiple myeloma. Pt was given IV cefepime. Respiratory panel was positive for parainfluenza. He was continued on bactrim and given benzonatate. Pt reports doing better today. He does report some MALCOLM. Pt follows up with cardiology. Will order chest CT to further assess Ascending aortic aneurysm in 6 months. Pt has followed up with hematology/oncology. Denies fever, chills, and chest pain. [facility] Medical History (Updated 06/11/23 @ 08:42 by Tho Cruz, [facility]) AAA (abdominal aortic aneurysm) HTN (hypertension) Leukopenia Multinodular thyroid Multiple myeloma Pancytopenia Pneumonia Statin intolerance Subclinical hyperthyroidism Vitamin D deficiency Surgical History History of AAA (abdominal aortic aneurysm) repair History of back surgery History of bone marrow biopsy Hx of hernia repair (07/08/18) Hx of tooth extraction Hx of umbilical hernia repair (06/28/13) Family History Father CVD (cardiovascular disease) AAA (abdominal aortic aneurysm) Mother Stomach cancer Social History Household Members: Spouse Housing: House Are you a primary urgent care nurse practitioner to a significant other at home: No Do you presently have visiting nurse or other home services: No Alcohol intake: former Patient Tobacco Use Status: Former Tobacco user Quit Date: 11 yrs ago Years Smoked: 38 e-Cigarette/Vaping Use: Never Used Second Hand Smoke Exposure: No Special tiesha needs: No Agree to transfusion: Yes Advance Directives Date on File: 01/11/21 service: Yes Current occupational status: employed and retired Cognitive needs: No Hearing needs: No Vision needs: No Questionnaire Thrive Questionnaire Date Thrive assessed: 05/25/23 LITTLE-7 AMB Questionnaire LITTLE-7 Date LITTLE - 7 assessed: 02/03/22 Source: Developed by Drs. Hussein Walton, Maxine Hidalgo, Elpidio Silveira and colleagues, with an educational artem from [employer]. Review of Systems Const Reports as per HPI Physical exam (Primary Care) Vital Signs: Last Vital Signs Pulse 56 06/11/23 08:01 BP 132/80 06/11/23 08:01 Pulse Ox 99 06/11/23 08:01 Oxygen Delivery Method Room Air 06/11/23 08:01 BMI result Body Mass Index 24.7 Tobacco/Smoking Status: Tobacco use Status Tobacco use date assessed 08/07/22 06/11/23 08:03 Patient Tobacco Use Status Former Tobacco user 06/11/23 08:03 e-Cigarette/Vaping Use Never Used 06/11/23 08:03 Thrive Assessment: Date of Thrive Assessment Date Thrive assessed 05/25/23 06/11/23 08:03 Const General: cooperative Orientation/consciousness: patient oriented x3 Resp Other: lungs clear/faintly diminished Effort & Inspection: normal respiratory effort Cardio Rate: regular rate Rhythm: regular rhythm Heart sounds: S1 normal heart sound present, S2 normal heart sound present and Murmur heart sound present systolic Neuro General: patient oriented x3 Psych Appearance: grossly normal Mental Status: mental status grossly normal Speech and movement: Normal speech and movement present Affect: normal affect Attitude: cooperative Thought process: Normal thought process present Thought content: Normal thought content present Insight: Good insight present (Psych) Judgement: Good judgement present (Psych) Assessment and Plan Assessment & Plan (1) Ascending aorta dilatation: Code(s): I77.810 - Thoracic aortic ectasia Plan: CT ordered (2) Parainfluenza: Code(s): B34.8 - Other viral infections of unspecified site Plan: Pt reports doing well Plan The patient agreed to the use of a certified medical biller for this encounter. Scribed for STEVE Mcintyre by Sabina Lafleur certified medical biller, on 06/11/2023 at 08:25 EST. Orders: Orders CT chest w IV con 6 Months I77.810 - Thoracic aortic ectasia Coding Level of Care Code Est Pt Level 3 (33490) Diagnoses Ascending aorta dilatation I77.810 Parainfluenza B34.8
[2023-06-11 08:01] VITALS: BP 132/80; PULSE 56; O2SAT 99; BMI 24.7
== END 2023-06-11 09:47 | disposition home or self-care (01) ==
PROVIDERS: PCP Nurse Practitioner Family; Visit Provider Nurse Practitioner Family
DX: I77.810 Thoracic aortic ectasia (principal); B34.8 Other viral infections of unspecified site
CPT/HCPCS: 99213

== ENCOUNTER 2023-08-13 08:08 | Outpatient (REF) | payer MEDICARE, SELFPAY | END 2023-08-13 08:09 | disposition home or self-care (01) | LOC: HO.HMGCLDS 08:08 | PROVIDERS: PCP Nurse Practitioner Family; Visit Provider Internal Medicine Medical Oncology | DX: C90.00 Multiple myeloma not having achieved remission (principal) | CPT/HCPCS: 36415; 80053; 85025 ==

== ENCOUNTER 2023-09-24 12:35 | Outpatient (REF) | payer MEDICARE, SELFPAY ==
[2023-09-24 16:18] LABS: MANUAL DIFF FLAG NO
[2023-09-24 16:33] LABS: Basophils Absolute Auto 0.1 X10*3/uL (0.0-0.2); Basophils Percent Auto 0.9 % (0-2); Eosinophils Absolute Auto 0.1 X10*3/uL (0.0-0.4); Eosinophils Percent Auto 0.9 % (0-4); Hematocrit 42.8 % (42.0-52.0); Hemoglobin 13.9 g/dl (14.0-18.0); Imm Gran Abs Auto 0.01 X10*3/uL (0.00-0.03); Imm Gran Pct Auto 0.2 % (0.0-0.4); Lymphocytes Percent Auto 17.6 % (20-40); Mean Corpuscular HGB Conc 32.5 g/dl (31.0-36.0); Mean Corpuscular Hemoglobin 32.2 pg (27.0-33.0); Mean Corpuscular Volume 99.1 fL (80.0-98.0); Mean Platelet Volume 11.4 fL (9.4-12.4); Monocytes Absolute Auto 0.6 X10*3/uL (0.1-1.2); Monocytes Percent Auto 10.1 % (2-11); Neutrophils Absolute Auto 4.1 x10*3/uL (2.0-8.3); Neutrophils Percent Auto 70.3 % (45-73); Platelet Count 152 X10*3/uL (160-400); Red Blood Count 4.32 X10*6/uL (4.60-5.80); Red Cell Distribution Width 13.5 % (11.0-16.0); White Blood Count 5.8 X10*3/uL (4.8-10.8)
[2023-09-24 17:00] LABS: Alanine Aminotransferase 9 U/L (0-40); Albumin Level 4.2 g/dL (3.5-5.0); Alkaline Phosphatase 71 U/L (39-117); Anion Gap 10 (12-20); Aspartate Amino Transferase 15 U/L (5-37); Bilirubin Total 0.6 mg/dL (0.0-1.0); Blood Urea Nitrogen 17 mg/dL (9-16); Calcium 9.1 mg/dL (8.4-10.2); Carbon Dioxide 30 mmol/L (22-29); Chloride 106 mmol/L (96-108); Estimated Glomerular Filt Rate > 60; Glucose Random 80 mg/dL (60-115); Potassium 3.6 mmol/L (3.3-5.1); Sodium 142 mmol/L (135-145); Total Protein 5.9 g/dL (6.5-8.0)
[2023-09-25 13:48] LABS: Kappa Light Chain, Free Serum 3.2 mg/L (3.3-19.4); Kappa/Lambda Lt Ch Free Ratio >2.13 (0.26-1.65); Lambda Light Chain, Free Serum <1.5 mg/L (5.7-26.3)
[2023-09-28 12:49] LABS: IgA 12 mg/dL (70-320); IgG 289 mg/dL (600-1540); IgM 7 mg/dL (50-300)
== END 2023-09-24 12:36 | disposition home or self-care (01) ==
LOC: HO.HMGCLDS 12:35
PROVIDERS: PCP Nurse Practitioner Family; Visit Provider Internal Medicine Medical Oncology
DX: C90.00 Multiple myeloma not having achieved remission (principal)
CPT/HCPCS: 36415; 80053; 82784; 83521; 85025

== ENCOUNTER 2023-10-07 07:48 | Outpatient (AMB) | payer MEDICARE, SELFPAY ==
--- NOTE | 2023-10-07 07:56 | A.OFFPC_ITS ---
Vital Signs 10/07/23 08:00 Height 5 ft 8 in Weight 167 lb 2 oz BMI 25.4 BP 122/80 Blood Pressure Location Lt brachial Position Sitting Pulse 66 Pulse Source Pulse Oximeter Pulse Oximetry (%) 98 Oxygen Delivery Method Room Air Intake Visit Reasons: Annual PE Intake Note: Patient here for physical exam. Allergies oxycodone [OXYCODONE] Adverse Reaction (Severe, Verified 10/07/23 08:01) vomiting, severe vomiting Medication List - Last Reconciled 10/07/23 by STEVE Mark acyclovir 400 mg PO DAILY amlodipine (Norvasc) 10 mg PO DAILY atorvastatin 40 mg PO BEDTIME benzonatate 200 mg (2 x 100 mg) PO TID PRN finasteride 5 mg PO DAILY 90 days hydrochlorothiazide 25 mg PO DAILY lisinopril 5 mg PO DAILY metoprolol succinate ER 100 mg PO DAILY nwlze-4m-aqa-epa-fish oil 300-1,000 mg ([place]-3 Fish Oil) 1 cap PO BEDTIME ondansetron 8 mg PO Q8H PRN sulfamethoxazole-trimethoprim 400-80 mg 1 tab PO DAILY vitamin D3-vitamin K2 137.5-200 mcg 1 tab PO DAILY Tobacco use date assessed: 10/07/23 Fall risk assessment: No Falls in past year Last assessed Fall Risk: 10/07/23 Dental Screening Dental Screen Date: 10/07/23 Did you have a dental visit in the last 12 months?: Yes Did you have a dental problem in the last 6 months where you did not have access to dental care?: No Was dental information given to patient?: Patient has dentist HPI Annual PE HPI Details Pt is here for a PE. Will order labs. PSA is up to date, sees urology. Pt follows up with hematology/oncology due to multiple myeloma. Pt saw GI in 2019 and it was recommended that he be cleared for a colonoscopy by his instructor of sociology. Will reach out to them. [facility] Medical History (Updated 10/07/23 @ 08:13 by STEVE Mark) Pneumonia Statin intolerance HTN (hypertension) AAA (abdominal aortic aneurysm) Vitamin D deficiency Subclinical hyperthyroidism Multinodular thyroid Pancytopenia Leukopenia Multiple myeloma Surgical History Hx of hernia repair (07/08/18) History of bone marrow biopsy Hx of tooth extraction History of back surgery Hx of umbilical hernia repair (06/28/13) History of AAA (abdominal aortic aneurysm) repair Family History Father CVD (cardiovascular disease) AAA (abdominal aortic aneurysm) Mother Stomach cancer Social History Household Members: Spouse Housing: House Are you a primary assistant child care teacher to a significant other at home: No Do you presently have visiting nurse or other home services: No Alcohol intake: former Comment: Patient refuses bed alarm Patient Tobacco Use Status: Former Tobacco user Quit Date: 11 yrs ago Years Smoked: 38 e-Cigarette/Vaping Use: Never Used Second Hand Smoke Exposure: No Special tiesha needs: No Agree to transfusion: Yes Advance Directives Date on File: 01/11/21 service: Yes Current occupational status: employed and retired Cognitive needs: No Hearing needs: No Vision needs: No Questionnaire PHQ-9 Over the last 2 weeks, how often have you been bothered by any of the following problems? 1. Little interest or pleasure in doing things: not at all 2. Feeling down, depressed, or hopeless: not at all 3. Trouble falling or staying asleep, or sleeping too much: not at all 4. Feeling tired or having little energy: not at all 5. Poor appetite or overeating: not at all 6. Feeling bad about yourself - or that you are a failure or have let yourself or your family down: not at all 7. Trouble concentrating on things, such as reading the newspaper or watching television: not at all 8. Moving or speaking so slowly that other people could have noticed. Or the opposite - being so fidgety or restless that you have been moving around a lot more than usual: not at all 9. Thoughts that you would be better off or of hurting yourself in some way: not at all Total score: 0 Depression Screening Interpretation: Negative Depression Screening Done: Yes 25586 - PHQ-9 Billing: Yes Source: Developed by Drs. Hussein Watlon, Maxine Hidalgo, Elpidio Silveira and colleagues, with an educational artem from [employer]. Thrive Questionnaire Date Thrive assessed: 05/25/23 I am a: Patient What is your living situation today?: I have a steady place to live Within the past 12 months, did the food you bought not last and you didn't have the money to get more?: Never true Within the past 12 months, did you worry whether your food would run out before you got money to buy more?: Never true Do you have trouble paying for medicines?: No Do you have trouble getting transportation to medical appointments?: No Do you have trouble paying your heating and electricity bill?: No Do you have trouble taking care of your child, family member or friend?: No Do you have trouble with day-to-day activities such as bathing, preparing meals, shopping, managing finances, etc.?: No Are you currently unemployed and looking for a job?: No Are you interested in more education?: No AUDIT C Alcohol Use Questionnaire (AUDIT-C) 1. How often do you have a drink containing alcohol?: Never 3. How often do you have six or more drinks on one occasion?: Never Total Score: 0 Score Reviewed/Action Taken: No LITTLE-7 AMB Questionnaire LITTLE-7 Date LITTLE - 7 assessed: 10/07/23 Source: Developed by Drs. Hussein Walton, Maxine Hidalgo, Elpidio Silveira and colleagues, with an educational artem from [employer]. LITTLE-7 Assessment Billing LITTLE-7 Assessment Tool: pt declined-do not bill Review of Systems Const Denies chills and Denies fever(s) Eyes Denies blurry vision ENT Denies vertigo, Denies dizziness and Denies sore throat Card Denies chest pain at rest, Denies chest pain with activity, Denies diaphoresis, Denies dyspnea and Denies dyspnea on exertion Resp Denies cough, Denies dyspnea, Denies dyspnea on exertion and Denies wheezing GI Denies abdominal pain, Denies melena, Denies hematochezia, Denies constipation, Denies diarrhea and Denies loose stools Denies hematuria Musc Denies numbness and Denies tingling Skin/Breast Denies lesions Neuro Denies vertigo, Denies dizziness, Denies numbness and Denies tingling Psych Denies anxiety, Denies depression, Denies homicidal ideation, Denies suicidal ideation and Denies other (substance abuse) Aller/Immun Denies wheezing Physical exam (Primary Care) Vital Signs: Last Vital Signs Pulse 66 10/07/23 08:00 BP 122/80 10/07/23 08:00 Pulse Ox 98 10/07/23 08:00 Oxygen Delivery Method Room Air 10/07/23 08:00 BMI result Body Mass Index 25.4 Tobacco/Smoking Status: Tobacco use Status Tobacco use date assessed 10/07/23 10/07/23 08:05 Patient Tobacco Use Status Former Tobacco user 10/07/23 07:58 e-Cigarette/Vaping Use Never Used 10/07/23 07:58 Depression Screening Interpretation: Negative Thrive Assessment: Date of Thrive Assessment Date Thrive assessed 05/25/23 10/07/23 07:58 Const General: cooperative Nutritional Appearance: well nourished Orientation/consciousness: patient oriented x3 HENMT Head: Yes normal to inspection, Yes normocephalic and Yes atraumatic Ears: TM's normal bilaterally Eyes General: appearance normal, both eyes and all related structures Alignment and Position: alignment normal and position normal Neck Neck: Yes normal visual inspection and Yes no lymphadenopathy Thyroid: Thyroid normal Resp Effort & Inspection: normal respiratory effort Auscultation: clear to auscultation bilaterally Cardio Rate: regular rate Rhythm: regular rhythm Heart sounds: S1 normal heart sound present, S2 normal heart sound present and no murmurs GI Palpation (GI): Soft to palpation and nontender Auscultation: normal bowel sounds Male General Exam: Yes normal external exam Penis: normal penis Scrotum: scrotum normal, testes descended bilaterally and no inguinal hernias Testes: no testicular mass Skin Rashes: no rashes Neuro General: patient oriented x3, moves all extremities, no focal motor deficits and deep tendon reflexes 2+ bilaterally Romberg Test: Negative Psych Appearance: grossly normal Mental Status: mental status grossly normal Speech and movement: Normal speech and movement present Affect: normal affect Attitude: cooperative Thought process: Normal thought process present Thought content: Normal thought content present Insight: Good insight present (Psych) Judgement: Good judgement present (Psych) Assessment and Plan Assessment & Plan (1) Physical exam: Code(s): Z00.00 - Encounter for general adult medical examination without abnormal findings Plan: Labs ordered Plan The patient agreed to the use of a medical hospital sales for this encounter. Scribed for Tho Cruz, [facility]- by Sabina Lafleur, medical hospital sales, on 10/07/2023 at 08:15 EST. Orders: Orders UA CC w/rflx Micro + Cult Today Z00.00 - Encounter for general adult medical examination without abnormal findings Comprehensive [place]. Panel Fast Today Z00.00 - Encounter for general adult medical examination without abnormal findings TSH reflex Free T4 Today Z00.00 - Encounter for general adult medical examination without abnormal findings Lipid Panel Today Z00.00 - Encounter for general adult medical examination without abnormal findings Coding Level of Care Code Est Pt Prev Care >65y(07945) Diagnoses Physical exam Z00.00
[2023-10-07 08:00] VITALS: BP 122/80; PULSE 66; O2SAT 98; BMI 25.4
== END 2023-10-07 08:57 | disposition home or self-care (01) ==
PROVIDERS: PCP Nurse Practitioner Family; Visit Provider Nurse Practitioner Family
DX: Z00.00 Encounter for general adult medical examination without abnormal findings (principal)
CPT/HCPCS: 99397

== ENCOUNTER 2023-10-22 14:48 | Outpatient (REF) | payer MEDICARE, SELFPAY ==
[2023-10-22 16:40] LABS: MANUAL DIFF FLAG NO
[2023-10-22 16:46] LABS: Basophils Percent Auto 0.7 % (0-2); Eosinophils Absolute Auto 0.1 X10*3/uL (0.0-0.4); Eosinophils Percent Auto 1.5 % (0-4); Hematocrit 43.7 % (42.0-52.0); Hemoglobin 14.3 g/dl (14.0-18.0); Imm Gran Abs Auto 0.02 X10*3/uL (0.00-0.03); Imm Gran Pct Auto 0.4 % (0.0-0.4); Lymphocytes Percent Auto 18.6 % (20-40); Mean Corpuscular HGB Conc 32.7 g/dl (31.0-36.0); Mean Corpuscular Hemoglobin 31.7 pg (27.0-33.0); Mean Corpuscular Volume 96.9 fL (80.0-98.0); Monocytes Absolute Auto 0.6 X10*3/uL (0.1-1.2); Monocytes Percent Auto 10.3 % (2-11); Neutrophils Absolute Auto 3.7 x10*3/uL (2.0-8.3); Neutrophils Percent Auto 68.5 % (45-73); Platelet Count 152 X10*3/uL (160-400); Red Blood Count 4.51 X10*6/uL (4.60-5.80); Red Cell Distribution Width 13.8 % (11.0-16.0); White Blood Count 5.4 X10*3/uL (4.8-10.8)
[2023-10-22 17:06] LABS: Alanine Aminotransferase 12 U/L (0-40); Albumin Level 4.5 g/dL (3.5-5.0); Alkaline Phosphatase 89 U/L (39-117); Anion Gap 12 (12-20); Aspartate Amino Transferase 16 U/L (5-37); Bilirubin Total 0.6 mg/dL (0.0-1.0); Blood Urea Nitrogen 20 mg/dL (9-16); Calcium 9.6 mg/dL (8.4-10.2); Carbon Dioxide 29 mmol/L (22-29); Chloride 104 mmol/L (96-108); Estimated Glomerular Filt Rate > 60; Glucose Random 96 mg/dL (60-115); Potassium 3.8 mmol/L (3.3-5.1); Sodium 141 mmol/L (135-145); Total Protein 6.5 g/dL (6.5-8.0)
[2023-10-23 13:58] LABS: Kappa Light Chain, Free Serum 1.8 mg/L (3.3-19.4); Kappa/Lambda Lt Ch Free Ratio >1.20 (0.26-1.65); Lambda Light Chain, Free Serum <1.5 mg/L (5.7-26.3)
[2023-10-23 22:48] LABS: IgA 8 mg/dL (70-320); IgG 288 mg/dL (600-1540); IgM 7 mg/dL (50-300)
== END 2023-10-22 14:49 | disposition home or self-care (01) ==
LOC: HO.HMGCLDS 14:48
PROVIDERS: PCP Nurse Practitioner Family; Visit Provider Internal Medicine Medical Oncology
DX: C90.00 Multiple myeloma not having achieved remission (principal)
CPT/HCPCS: 36415; 80053; 82784; 83521; 85025; 86334

== ENCOUNTER 2023-11-05 06:04 | Outpatient (REF) | payer MEDICARE, SELFPAY ==
[2023-11-05 11:14] LABS: MANUAL DIFF FLAG NO
[2023-11-05 11:34] LABS: Basophils Percent Auto 0.6 % (0-2); Eosinophils Absolute Auto 0.1 X10*3/uL (0.0-0.4); Eosinophils Percent Auto 1.3 % (0-4); Hematocrit 42.9 % (42.0-52.0); Hemoglobin 14.2 g/dl (14.0-18.0); Imm Gran Abs Auto 0.02 X10*3/uL (0.00-0.03); Imm Gran Pct Auto 0.4 % (0.0-0.4); Lymphocytes Absolute Auto 0.9 X10*3/uL (1.2-4.9); Lymphocytes Percent Auto 17.7 % (20-40); Mean Corpuscular HGB Conc 33.1 g/dl (31.0-36.0); Mean Corpuscular Hemoglobin 32.6 pg (27.0-33.0); Mean Corpuscular Volume 98.4 fL (80.0-98.0); Monocytes Absolute Auto 0.5 X10*3/uL (0.1-1.2); Monocytes Percent Auto 9.3 % (2-11); Neutrophils Absolute Auto 3.7 x10*3/uL (2.0-8.3); Neutrophils Percent Auto 70.7 % (45-73); Platelet Count 168 X10*3/uL (160-400); Red Blood Count 4.36 X10*6/uL (4.60-5.80); Red Cell Distribution Width 13.8 % (11.0-16.0); White Blood Count 5.3 X10*3/uL (4.8-10.8)
[2023-11-05 12:06] LABS: Prostate Specific Antigen 5.52 ng/mL (<0.05-4.0)
[2023-11-05 12:13] LABS: Alanine Aminotransferase 9 U/L (0-40); Albumin Level 4.1 g/dL (3.5-5.0); Alkaline Phosphatase 79 U/L (39-117); Anion Gap 11 (12-20); Aspartate Amino Transferase 14 U/L (5-37); Bilirubin Total 0.9 mg/dL (0.0-1.0); Blood Urea Nitrogen 17 mg/dL (9-16); Calcium 9.7 mg/dL (8.4-10.2); Carbon Dioxide 28 mmol/L (22-29); Chloride 105 mmol/L (96-108); Cholesterol 137 mg/dL (<200); Estimated Glomerular Filt Rate > 60; Glucose Fasting 119 mg/dL (60-99); Glucose Random 119 mg/dL (60-115); HDL Cholesterol 54 mg/dL (>40); LDL Cholesterol Calculated 68 mg/dL (<100); Potassium 3.7 mmol/L (3.3-5.1); Sodium 140 mmol/L (135-145); TSH reflex Free T4 0.67 uIU/mL (0.32-4.0); Total Protein 5.8 g/dL (6.5-8.0); Triglycerides 77 mg/dL (<150)
[2023-11-05 13:40] LABS: Appearance Urine Clear; Color Urine Yellow; Glucose Urine UA Negative (Negative); Leukocyte Esterase Urine Trace (Negative); Nitrite Urine Negative (Negative); PH 5.5 (5.0-9.0); Specific Gravity - Urine 1.015 (1.005-1.025); UMIC TRIGGER UACC YES; Urine Blood Negative (Negative); Urine Ketones Negative (Negative); Urine Protein Negative (Neg-Trace)
[2023-11-05 13:44] LABS: Bacteria Urine None Seen (None Seen); Hyaline Casts Urine 0-2 /LPF (0-2); RBC Urine 0-2 /HPF (0-2); Squamous Epithelial Cell Urine 0-2 /HPF (0-2); WBC Urine 0-5 /HPF (0-5)
[2023-11-10 13:44] LABS: Kappa Light Chain, Free Serum 3.7 mg/L (3.3-19.4); Kappa/Lambda Lt Ch Free Ratio >2.47 (0.26-1.65); Lambda Light Chain, Free Serum <1.5 mg/L (5.7-26.3)
[2023-11-11 13:38] LABS: IgA 7 mg/dL (70-320); IgG 272 mg/dL (600-1540); IgM 6 mg/dL (50-300)
== END 2023-11-05 06:05 | disposition home or self-care (01) ==
LOC: HO.HMGCLDS 06:04
PROVIDERS: Absent Provider Internal Medicine Medical Oncology; PCP Nurse Practitioner Family; Referring Provider Urology; Visit Provider Nurse Practitioner Family
DX: Z00.00 Encounter for general adult medical examination without abnormal findings (principal); R97.20 Elevated prostate specific antigen [PSA]; C90.00 Multiple myeloma not having achieved remission; Z12.5 Encounter for screening for malignant neoplasm of prostate
CPT/HCPCS: 36415; 80053; 80061; 81001; 82784; 83521; 84153; 84443; 85025; 86334

== ENCOUNTER 2023-11-17 14:18 | Outpatient (AMB) | payer MEDICARE, SELFPAY ==
--- NOTE | 2023-11-17 14:23 | A.OFFVIS_ITS ---
Intake Intake Visit Reasons: 6M PSA(set) Intake Note: Patient is Present for Follow Up PSA Urology Medication: None Antibiotic Allergies: None Blood Thinners: None Patient has stopped finasteride due to side effects PSA: 11/05/2023- 5.52 Allergies oxycodone [OXYCODONE] Adverse Reaction (Severe, Verified 10/07/23 08:01) vomiting, severe vomiting Medication List - Last Reconciled 11/17/23 by Bar Ralph MD acyclovir 400 mg PO DAILY amlodipine (Norvasc) 10 mg PO DAILY atorvastatin 40 mg PO BEDTIME benzonatate 200 mg (2 x 100 mg) PO TID PRN finasteride 5 mg PO DAILY 90 days hydrochlorothiazide 25 mg PO DAILY lisinopril 5 mg PO DAILY metoprolol succinate ER 100 mg PO DAILY ngads-6r-gwx-epa-fish oil 300-1,000 mg ([place]-3 Fish Oil) 1 cap PO BEDTIME ondansetron 8 mg PO Q8H PRN sulfamethoxazole-trimethoprim 400-80 mg 1 tab PO DAILY vitamin D3-vitamin K2 137.5-200 mcg 1 tab PO DAILY HPI HPI Comments History of Present Illness Details Hussein is a very pleasant male. He is a patient of Dr. Liao. He is seen for the following urologic conditions - elevated PSA Side effects from finasteride Came of medication PSA slowly rising Return medication and 1/2 tab on Thursday, Thursday, Thursday Elevated PSA PSA 10/10 9.0, 05/30 6.5, 05/31 2.4, 10/31 5.52 Urinary parameters nocturia times to secondary to multiple myeloma, variable stream, occasional hesitancy Trial finasteride TIFFANIE 2+ prostate soft, base nodule right Family history prostate cancer younger brother Plan - continue finasteride [facility] Medical History Pneumonia Statin intolerance HTN (hypertension) AAA (abdominal aortic aneurysm) Vitamin D deficiency Subclinical hyperthyroidism Multinodular thyroid Pancytopenia Leukopenia Multiple myeloma Surgical History Hx of hernia repair (07/08/18) History of bone marrow biopsy Hx of tooth extraction History of back surgery Hx of umbilical hernia repair (06/28/13) History of AAA (abdominal aortic aneurysm) repair Family History Father CVD (cardiovascular disease) AAA (abdominal aortic aneurysm) Mother Stomach cancer Social History Household Members: Spouse Housing: House Are you a primary healthcare economics manager to a significant other at home: No Do you presently have visiting nurse or other home services: No Alcohol intake: former Comment: Patient refuses bed alarm Patient Tobacco Use Status: Former Tobacco user Quit Date: 11 yrs ago Years Smoked: 38 e-Cigarette/Vaping Use: Never Used Second Hand Smoke Exposure: No Special tiesha needs: No Agree to transfusion: Yes Advance Directives Date on File: 01/11/21 service: Yes Current occupational status: employed and retired Cognitive needs: No Hearing needs: No Vision needs: No Review of Systems Const Denies chills and Denies fever(s) Card Reports no additional complaints and Denies syncope Resp Denies cough GI Denies abdominal pain and Denies heartburn Reports as per HPI and Denies change in libido Neuro Denies syncope Psych Denies change in libido Endo Denies change in libido Physical Exam Const General: cooperative, healthy appearing, comfortable and no acute distress Orientation/consciousness: patient oriented x3 HEENT Face and sinus: Yes normal facial exam Mouth: moist mucous membranes Neck Neck: Yes normal visual inspection, Yes full ROM and Yes trachea midline Chest Chest palpation & inspection: normal inspection of the chest Resp Effort & Inspection: normal respiratory effort, able to speak in complete sentences and no respiratory distress GI Inspection: Yes normal to inspection Back/Spine/Pelvis Cervical Spine: normal cervical lordosis Thoracic/Lumbar Spine: thoracic and lumbar spine normal to inspection Skin General skin exam: no rashes or lesions noted Neuro General: patient oriented x3, gait normal, tone normal and moves all extremities Extrem General: Yes normal to inspection and Yes capillary refill normal Assessment & Plan Assessment & Plan (1) Elevated PSA: Code(s): R97.20 - Elevated prostate specific antigen [PSA] Plan Six month follow-up Orders: Orders PSA,Total (Free>4and<10) 6 Months N13.8 - Other obstructive and reflux uropathy, N40.1 - Benign prostatic hyperplasia with lower urinary tract symptoms Medications: Refilled finasteride 5 mg PO DAILY 90 days 90 tabs 1RF N13.8 - Other obstructive and reflux uropathy, N40.1 - Benign prostatic hyperplasia with lower urinary tract symptoms, N40.2 - Nodular prostate without lower urinary tract symptoms, R33.9 - Retention of urine, unspecified Patient Instructions: Imaging studies, laboratory and physical exam results were discussed and reviewed in detail. No major barriers to patient understanding were identified. An opportunity to ask questions regarding the treatment plan was provided. All questions were answered. The patient expressed understanding and agreement with the above treatment plan. The patient is aware they should contact our office by phone for worsening of their current condition or the appearance of new urologic symptoms. Compliance is encouraged with any medications and followup testing that is ordered. It is a privilege to participate in the urologic care of your patient. If you have any questions or concerns regarding treatment for the above conditions, or other urologic issues, please do not hesitate to contact me. The office telephone contact is [phone]. This note is constructed using voice recognition software. While every effort has been made to ensure accuracy bend sorter errors may have been included. Yours sincerely, Dr Bar Ralph MD, [facility] - Urology Providers of Expert, Compassionate Care for the Genitourinary System Coding Level of Care Code Est Pt Level 4 (78547) Diagnoses Elevated PSA R97.20
== END 2023-11-17 15:02 | disposition home or self-care (01) ==
PROVIDERS: PCP Nurse Practitioner Family; Visit Provider Urology
DX: R97.20 Elevated prostate specific antigen [PSA] (principal)
CPT/HCPCS: 99213

== ENCOUNTER → 2023-11-17 14:18 | Outpatient (BNVA) | payer MEDICARE, SELFPAY | PROVIDERS: PCP Nurse Practitioner Family; Visit Provider Urology | DX: R97.20 Elevated prostate specific antigen [PSA] (principal) | CPT/HCPCS: 99212 ==

== ENCOUNTER 2023-11-19 06:10 | Outpatient (REF) | payer MEDICARE, SELFPAY ==
[2023-11-19 11:36] LABS: MANUAL DIFF FLAG NO
[2023-11-19 11:49] LABS: Basophils Percent Auto 0.7 % (0-2); Eosinophils Absolute Auto 0.1 X10*3/uL (0.0-0.4); Hematocrit 41.1 % (42.0-52.0); Hemoglobin 13.6 g/dl (14.0-18.0); Imm Gran Abs Auto 0.02 X10*3/uL (0.00-0.03); Imm Gran Pct Auto 0.4 % (0.0-0.4); Lymphocytes Absolute Auto 1.1 X10*3/uL (1.2-4.9); Lymphocytes Percent Auto 19.1 % (20-40); Mean Corpuscular HGB Conc 33.1 g/dl (31.0-36.0); Mean Corpuscular Hemoglobin 32.8 pg (27.0-33.0); Mean Platelet Volume 11.5 fL (9.4-12.4); Monocytes Absolute Auto 0.5 X10*3/uL (0.1-1.2); Monocytes Percent Auto 9.6 % (2-11); Neutrophils Absolute Auto 3.8 x10*3/uL (2.0-8.3); Neutrophils Percent Auto 68.2 % (45-73); Platelet Count 157 X10*3/uL (160-400); Red Blood Count 4.15 X10*6/uL (4.60-5.80); White Blood Count 5.5 X10*3/uL (4.8-10.8)
[2023-11-19 12:16] LABS: Alanine Aminotransferase 10 U/L (0-40); Alkaline Phosphatase 75 U/L (39-117); Anion Gap 10 (12-20); Aspartate Amino Transferase 14 U/L (5-37); Bilirubin Total 0.6 mg/dL (0.0-1.0); Blood Urea Nitrogen 19 mg/dL (9-16); Calcium 9.2 mg/dL (8.4-10.2); Carbon Dioxide 29 mmol/L (22-29); Chloride 105 mmol/L (96-108); Estimated Glomerular Filt Rate > 60; Glucose Random 110 mg/dL (60-115); Potassium 3.5 mmol/L (3.3-5.1); Sodium 140 mmol/L (135-145); Total Protein 5.9 g/dL (6.5-8.0)
[2023-11-23 15:33] LABS: Kappa Light Chain, Free Serum 1.8 mg/L (3.3-19.4); Kappa/Lambda Lt Ch Free Ratio >1.20 (0.26-1.65); Lambda Light Chain, Free Serum <1.5 mg/L (5.7-26.3)
[2023-11-24 16:09] LABS: IgA 6 mg/dL (70-320); IgG 252 mg/dL (600-1540); IgM 5 mg/dL (50-300)
== END 2023-11-19 06:11 | disposition home or self-care (01) ==
LOC: HO.HMGCLDS 06:10
PROVIDERS: PCP Nurse Practitioner Family; Visit Provider Internal Medicine Medical Oncology
DX: C90.00 Multiple myeloma not having achieved remission (principal)
CPT/HCPCS: 36415; 80053; 82784; 83521; 85025

== ENCOUNTER → 2023-11-26 07:51 | Outpatient (REF) | payer MEDICARE, SELFPAY ==
--- NOTE | 2023-11-26 08:09 | CA_ITS ---
Transthoracic Echocardiogram Patient (Last, First, Middle): Hussein Castellano D Gender: Male Date of : 1945 Age: 77 Procedure Date: 11/26/2023 Procedure Type: Transthoracic Echocardiogram Location: OP Height: 172.72 cm Weight: 74.84 kg BSA: 1.88 m2 Heart Rate: 56 bpm BP: 148 / 70 mmHg Supervisor Grounds: SB Referring MD: Екатерина Beach MD Symptoms: DETERMINE EF ON CHEMOTHERAPY. Study Quality: Adequate ECG Rhythm: Bradycardia Conclusions: - The left ventricular systolic function is normal. The calculated ejection fraction is 59% by biplane method. - Moderately increased right ventricular cavity size. - Moderate biatrial enlargement. - There is mild aortic valve stenosis. - There is moderate posterior mitral annular calcification. - There is mild dilatation of the ascending aorta measuring 4.10 cm. Findings Left Ventricle Normal left ventricular cavity size. The left ventricular systolic function is normal. The calculated ejection fraction is 59% by biplane method. There is no evidence of regional wall motion abnormalities. There is mild septal asymmetric hypertrophy. LV peak GLS -15.6%. Right Ventricle Moderately increased right ventricular cavity size. There is normal right ventricular systolic function. Atria Moderate biatrial enlargement. Aortic Valve There is moderate calcification of the aortic valve. There is mild aortic valve stenosis. There is trace (trivial) aortic valve regurgitation. Mitral Valve There is moderate posterior mitral annular calcification. There is trace mitral valve regurgitation. There is no mitral valve stenosis. Pulmonic Valve The pulmonic valve is likely normal. Tricuspid Valve Normal tricuspid valve structure. There is mild tricuspid valve regurgitation. There is no evidence of pulmonary hypertension. Great Vessels There is mild dilatation of the ascending aorta measuring 4.10 cm. Venous The inferior vena cava is normal in size and collapses greater than 50% with inspiration. Pericardium/Pleural There is no evidence of pericardial effusion. Prior Study Comparison No significant change compared to prior study dated: 04/02/2023. Measurements 2D Linear Measurements IVSd: 1.11 0.6-0.9/0.6-1.0 cm LVIDd: 5.20 3.9-5.3/4.2-5.9 cm LVIDd Index: 2.77 2.4-3.2/2.2-3.1 cm/m2 LVIDs: 2.48 2.0-3.6 cm LVPWd: 0.81 0.7-1.1 cm LA Diam: 4.20 2.7-3.8/3.0-4.0 cm LAIDs Index: 2.23 1.5-2.3 cm/m2 LV Mass: 229.47 67-162/88-224 g LV Mass Index: 122.06 43-95/49-115 g/m2 LVOT Diam: 2.50 3.0+(-)1.3 cm 2D Systolic Function EF 4C: 49.90 >55% EF 2C: 66.30 >55% EF BiP: 58.80 >55% Mitral Valve MV Pk E: 0.60 MV PK A: 0.72 MV Decel Time: 353.00 E/A: 0.80 E'Lateral: 3.70 E'Medial: 4.46 E/E' Med: 13.50 E/E' Lat: 16.20 PHT: 103.00 MVA PHT: 2.14 Decel [place]: 1.70 Aortic Valve AoV Pk Khang: 2.34 AoV Mn Khang: 1.65 AoV VTI: 0.53 AoV Pk Grad: 22.00 Aov Mn Grad: 12.00 JULIAN Cont.VTI: 1.84 LVOT LVOT Pk Khang: 0.84 LVOT Mn Khang: 0.61 LVOT VTI: 0.20 LVOT Pk Grad: 3.00 LVOT Mn Grad: 2.00 LVOT Diam: 2.50 LVOT Area: 4.91 Diastolic Function MV Pk E: 0.60 MV Pk A: 0.72 E/A: 0.80 E'Medial: 4.46 E/E' Med: 13.50 E' Laterial: 3.70 E/E' Lat: 16.20 Right Ventricle TAPSE (mm): 26.30 TVS' Khang: 15.30 Tricuspid Valve TR Pk Khang: 2.41 TR Pk Grad: 23.00 RA Press: 3.00 RVSP: 26.00 Great Vessels Aorta Sinus of Valsalva: 3.70 2.0-3.5 cm Ao Asc: 4.10 2.1-3.4 cm Pulmonary Veins Pulm Vein S/D 1.30 Pulmonary Valve PV Pk Khang: 1.00 Peak PV Grad: 4.00 Updated in Other Vendor System with Status of Final Fer Allen MD electronically signed on 11/27/2023 2:37:35 PM with status of Final
== END ==
LOC: HO.CARD 07:51
PROVIDERS: PCP Nurse Practitioner Family; Visit Provider Internal Medicine
DX: C90.00 Multiple myeloma not having achieved remission (principal); I35.0 Nonrheumatic aortic (valve) stenosis; Z79.60 Long term (current) use of unspecified immunomodulators and immunosuppressants
CPT/HCPCS: 93306; 93356

== ENCOUNTER → 2023-11-26 08:09 | Outpatient (BNV) | payer MEDICARE, SELFPAY | PROVIDERS: PCP Nurse Practitioner Family; Visit Provider Internal Medicine | DX: I35.0 Nonrheumatic aortic (valve) stenosis (principal) | CPT/HCPCS: 93306 ==

== ENCOUNTER 2023-12-03 06:03 | Outpatient (REF) | payer MEDICARE, SELFPAY ==
[2023-12-03 11:46] LABS: MANUAL DIFF FLAG NO
[2023-12-03 11:56] LABS: Basophils Percent Auto 0.7 % (0-2); Eosinophils Absolute Auto 0.1 X10*3/uL (0.0-0.4); Eosinophils Percent Auto 1.5 % (0-4); Hematocrit 42.2 % (42.0-52.0); Hemoglobin 13.9 g/dl (14.0-18.0); Imm Gran Abs Auto 0.05 X10*3/uL (0.00-0.03); Imm Gran Pct Auto 0.9 % (0.0-0.4); Lymphocytes Absolute Auto 0.8 X10*3/uL (1.2-4.9); Lymphocytes Percent Auto 14.8 % (20-40); Mean Corpuscular HGB Conc 32.9 g/dl (31.0-36.0); Mean Corpuscular Hemoglobin 32.9 pg (27.0-33.0); Mean Platelet Volume 11.3 fL (9.4-12.4); Monocytes Absolute Auto 0.6 X10*3/uL (0.1-1.2); Monocytes Percent Auto 10.9 % (2-11); Neutrophils Absolute Auto 3.9 x10*3/uL (2.0-8.3); Neutrophils Percent Auto 71.2 % (45-73); Platelet Count 141 X10*3/uL (160-400); Red Blood Count 4.22 X10*6/uL (4.60-5.80); Red Cell Distribution Width 13.6 % (11.0-16.0); White Blood Count 5.4 X10*3/uL (4.8-10.8)
[2023-12-03 12:11] LABS: Alanine Aminotransferase 10 U/L (0-40); Albumin Level 4.1 g/dL (3.5-5.0); Alkaline Phosphatase 78 U/L (39-117); Anion Gap 13 (12-20); Aspartate Amino Transferase 15 U/L (5-37); Bilirubin Total 0.6 mg/dL (0.0-1.0); Blood Urea Nitrogen 18 mg/dL (9-16); Calcium 9.7 mg/dL (8.4-10.2); Carbon Dioxide 29 mmol/L (22-29); Chloride 103 mmol/L (96-108); Estimated Glomerular Filt Rate > 60; Glucose Random 105 mg/dL (60-115); Potassium 3.7 mmol/L (3.3-5.1); Sodium 141 mmol/L (135-145)
== END 2023-12-03 06:04 | disposition home or self-care (01) ==
LOC: HO.HMGCLDS 06:03
PROVIDERS: PCP Nurse Practitioner Family; Visit Provider Internal Medicine Medical Oncology
DX: C90.00 Multiple myeloma not having achieved remission (principal)
CPT/HCPCS: 36415; 80053; 85025

== ENCOUNTER 2023-12-17 06:01 | Outpatient (REF) | payer MEDICARE, SELFPAY ==
[2023-12-17 11:43] LABS: MANUAL DIFF FLAG NO
[2023-12-17 11:58] LABS: Basophils Percent Auto 0.6 % (0-2); Eosinophils Absolute Auto 0.1 X10*3/uL (0.0-0.4); Eosinophils Percent Auto 1.5 % (0-4); Hematocrit 42.4 % (42.0-52.0); Hemoglobin 13.9 g/dl (14.0-18.0); Imm Gran Abs Auto 0.02 X10*3/uL (0.00-0.03); Imm Gran Pct Auto 0.4 % (0.0-0.4); Lymphocytes Absolute Auto 0.9 X10*3/uL (1.2-4.9); Lymphocytes Percent Auto 18.8 % (20-40); Mean Corpuscular HGB Conc 32.8 g/dl (31.0-36.0); Mean Corpuscular Hemoglobin 32.4 pg (27.0-33.0); Mean Corpuscular Volume 98.8 fL (80.0-98.0); Mean Platelet Volume 11.1 fL (9.4-12.4); Monocytes Absolute Auto 0.5 X10*3/uL (0.1-1.2); Monocytes Percent Auto 9.6 % (2-11); Neutrophils Absolute Auto 3.3 x10*3/uL (2.0-8.3); Neutrophils Percent Auto 69.1 % (45-73); Platelet Count 153 X10*3/uL (160-400); Red Blood Count 4.29 X10*6/uL (4.60-5.80); Red Cell Distribution Width 13.6 % (11.0-16.0); White Blood Count 4.8 X10*3/uL (4.8-10.8)
[2023-12-17 12:29] LABS: Alanine Aminotransferase 10 U/L (0-40); Albumin Level 4.1 g/dL (3.5-5.0); Alkaline Phosphatase 85 U/L (39-117); Anion Gap 12 (12-20); Aspartate Amino Transferase 16 U/L (5-37); Bilirubin Total 0.7 mg/dL (0.0-1.0); Blood Urea Nitrogen 18 mg/dL (9-16); Calcium 9.6 mg/dL (8.4-10.2); Carbon Dioxide 30 mmol/L (22-29); Chloride 102 mmol/L (96-108); Estimated Glomerular Filt Rate > 60; Glucose Random 125 mg/dL (60-115); Potassium 3.6 mmol/L (3.3-5.1); Sodium 140 mmol/L (135-145); Total Protein 5.9 g/dL (6.5-8.0)
== END 2023-12-17 06:02 | disposition home or self-care (01) ==
LOC: HO.HMGCLDS 06:01
PROVIDERS: PCP Nurse Practitioner Family; Visit Provider Internal Medicine Medical Oncology
DX: C90.00 Multiple myeloma not having achieved remission (principal)
CPT/HCPCS: 36415; 80053; 85025

== ENCOUNTER 2023-12-31 06:01 | Outpatient (REF) | payer MEDICARE, SELFPAY ==
[2023-12-31 11:18] LABS: MANUAL DIFF FLAG NO
[2023-12-31 11:37] LABS: Basophils Absolute Auto 0.1 X10*3/uL (0.0-0.2); Eosinophils Absolute Auto 0.1 X10*3/uL (0.0-0.4); Eosinophils Percent Auto 1.5 % (0-4); Hemoglobin 14.4 g/dl (14.0-18.0); Imm Gran Abs Auto 0.02 X10*3/uL (0.00-0.03); Imm Gran Pct Auto 0.3 % (0.0-0.4); Lymphocytes Percent Auto 17.7 % (20-40); Mean Corpuscular HGB Conc 33.5 g/dl (31.0-36.0); Mean Corpuscular Hemoglobin 33.3 pg (27.0-33.0); Mean Corpuscular Volume 99.5 fL (80.0-98.0); Mean Platelet Volume 11.3 fL (9.4-12.4); Monocytes Absolute Auto 0.5 X10*3/uL (0.1-1.2); Monocytes Percent Auto 9.3 % (2-11); Neutrophils Absolute Auto 4.1 x10*3/uL (2.0-8.3); Neutrophils Percent Auto 70.2 % (45-73); Platelet Count 162 X10*3/uL (160-400); Red Blood Count 4.32 X10*6/uL (4.60-5.80); Red Cell Distribution Width 13.3 % (11.0-16.0); White Blood Count 5.8 X10*3/uL (4.8-10.8)
[2023-12-31 11:48] LABS: Alanine Aminotransferase 10 U/L (0-40); Albumin Level 4.3 g/dL (3.5-5.0); Alkaline Phosphatase 80 U/L (39-117); Anion Gap 11 (12-20); Aspartate Amino Transferase 15 U/L (5-37); Bilirubin Total 0.6 mg/dL (0.0-1.0); Blood Urea Nitrogen 17 mg/dL (9-16); Calcium 9.5 mg/dL (8.4-10.2); Carbon Dioxide 30 mmol/L (22-29); Chloride 104 mmol/L (96-108); Estimated Glomerular Filt Rate > 60; Glucose Random 138 mg/dL (60-115); Potassium 3.3 mmol/L (3.3-5.1); Sodium 142 mmol/L (135-145); Total Protein 6.2 g/dL (6.5-8.0)
== END 2023-12-31 06:02 | disposition home or self-care (01) ==
LOC: HO.HMGCLDS 06:01
PROVIDERS: PCP Nurse Practitioner Family; Visit Provider Internal Medicine Medical Oncology
DX: C90.00 Multiple myeloma not having achieved remission (principal)
CPT/HCPCS: 36415; 80053; 85025

== ENCOUNTER 2024-01-14 06:04 | Outpatient (REF) | payer MEDICARE, SELFPAY ==
[2024-01-14 11:34] LABS: MANUAL DIFF FLAG NO
[2024-01-14 11:40] LABS: Basophils Percent Auto 0.7 % (0-2); Eosinophils Absolute Auto 0.1 X10*3/uL (0.0-0.4); Eosinophils Percent Auto 1.7 % (0-4); Hematocrit 43.4 % (42.0-52.0); Hemoglobin 14.3 g/dl (14.0-18.0); Imm Gran Abs Auto 0.01 X10*3/uL (0.00-0.03); Imm Gran Pct Auto 0.2 % (0.0-0.4); Lymphocytes Absolute Auto 0.9 X10*3/uL (1.2-4.9); Lymphocytes Percent Auto 20.4 % (20-40); Mean Corpuscular HGB Conc 32.9 g/dl (31.0-36.0); Mean Corpuscular Hemoglobin 32.8 pg (27.0-33.0); Mean Corpuscular Volume 99.5 fL (80.0-98.0); Mean Platelet Volume 11.5 fL (9.4-12.4); Monocytes Absolute Auto 0.4 X10*3/uL (0.1-1.2); Neutrophils Absolute Auto 2.8 x10*3/uL (2.0-8.3); Platelet Count 147 X10*3/uL (160-400); Red Blood Count 4.36 X10*6/uL (4.60-5.80); Red Cell Distribution Width 13.2 % (11.0-16.0); White Blood Count 4.2 X10*3/uL (4.8-10.8)
[2024-01-14 12:01] LABS: Alanine Aminotransferase 11 U/L (0-40); Albumin Level 4.2 g/dL (3.5-5.0); Alkaline Phosphatase 73 U/L (39-117); Anion Gap 10 (12-20); Aspartate Amino Transferase 15 U/L (5-37); Bilirubin Total 0.6 mg/dL (0.0-1.0); Blood Urea Nitrogen 19 mg/dL (9-16); Calcium 9.5 mg/dL (8.4-10.2); Carbon Dioxide 31 mmol/L (22-29); Chloride 104 mmol/L (96-108); Estimated Glomerular Filt Rate > 60; Glucose Random 111 mg/dL (60-115); Potassium 3.7 mmol/L (3.3-5.1); Sodium 141 mmol/L (135-145); Total Protein 5.9 g/dL (6.5-8.0)
[2024-01-14 12:15] LABS: Prostate Specific Antigen Scr 2.84 ng/mL (<0.05-4.0)
[2024-01-18 14:48] LABS: Kappa Light Chain, Free Serum 1.2 mg/L (3.3-19.4); Kappa/Lambda Lt Ch Free Ratio >0.80 (0.26-1.65); Lambda Light Chain, Free Serum <1.5 mg/L (5.7-26.3)
[2024-01-19 05:48] LABS: IgA 5 mg/dL (70-320); IgG 263 mg/dL (600-1540); IgM <5 mg/dL (50-300)
== END 2024-01-14 06:05 | disposition home or self-care (01) ==
LOC: HO.HMGCLDS 06:04
PROVIDERS: PCP Nurse Practitioner Family; Visit Provider Internal Medicine Medical Oncology
DX: C90.00 Multiple myeloma not having achieved remission (principal); Z12.5 Encounter for screening for malignant neoplasm of prostate
CPT/HCPCS: 36415; 80053; 82784; 83521; 84153; 85025; 86334

== ENCOUNTER 2024-01-28 06:06 | Outpatient (REF) | payer MEDICARE, SELFPAY ==
[2024-01-28 11:00] LABS: MANUAL DIFF FLAG NO
[2024-01-28 11:20] LABS: Basophils Percent Auto 0.4 % (0-2); Eosinophils Absolute Auto 0.1 X10*3/uL (0.0-0.4); Eosinophils Percent Auto 1.1 % (0-4); Hematocrit 42.8 % (42.0-52.0); Hemoglobin 14.3 g/dl (14.0-18.0); Imm Gran Abs Auto 0.07 X10*3/uL (0.00-0.03); Lymphocytes Absolute Auto 0.6 X10*3/uL (1.2-4.9); Lymphocytes Percent Auto 7.7 % (20-40); Mean Corpuscular HGB Conc 33.4 g/dl (31.0-36.0); Mean Corpuscular Hemoglobin 32.9 pg (27.0-33.0); Mean Corpuscular Volume 98.6 fL (80.0-98.0); Mean Platelet Volume 11.3 fL (9.4-12.4); Monocytes Absolute Auto 0.6 X10*3/uL (0.1-1.2); Monocytes Percent Auto 8.7 % (2-11); Neutrophils Absolute Auto 5.9 x10*3/uL (2.0-8.3); Neutrophils Percent Auto 81.1 % (45-73); Platelet Count 141 X10*3/uL (160-400); Red Blood Count 4.34 X10*6/uL (4.60-5.80); Red Cell Distribution Width 13.3 % (11.0-16.0); White Blood Count 7.3 X10*3/uL (4.8-10.8)
[2024-01-28 11:45] LABS: Alanine Aminotransferase 14 U/L (0-40); Albumin Level 4.2 g/dL (3.5-5.0); Alkaline Phosphatase 82 U/L (39-117); Anion Gap 14 (12-20); Aspartate Amino Transferase 16 U/L (5-37); Bilirubin Total 0.6 mg/dL (0.0-1.0); Blood Urea Nitrogen 16 mg/dL (9-16); Calcium 9.7 mg/dL (8.4-10.2); Carbon Dioxide 29 mmol/L (22-29); Chloride 102 mmol/L (96-108); Estimated Glomerular Filt Rate > 60; Glucose Random 116 mg/dL (60-115); Potassium 3.6 mmol/L (3.3-5.1); Sodium 141 mmol/L (135-145); Total Protein 6.1 g/dL (6.5-8.0)
[2024-01-29 14:18] LABS: Kappa Light Chain, Free Serum 1.4 mg/L (3.3-19.4); Kappa/Lambda Lt Ch Free Ratio >0.93 (0.26-1.65); Lambda Light Chain, Free Serum <1.5 mg/L (5.7-26.3)
[2024-01-30 00:49] LABS: IgA 7 mg/dL (70-320); IgG 259 mg/dL (600-1540); IgM <5 mg/dL (50-300)
== END 2024-01-28 06:07 | disposition home or self-care (01) ==
LOC: HO.HMGCLDS 06:06
PROVIDERS: PCP Nurse Practitioner Family; Visit Provider Internal Medicine Medical Oncology
DX: C90.00 Multiple myeloma not having achieved remission (principal)
CPT/HCPCS: 36415; 80053; 82784; 83521; 85025; 86334

== ENCOUNTER 2024-02-04 19:22 | Emergency (ER) | payer MEDICARE, SELFPAY ==
--- NOTE | ~2024-02-04 | XR_ITS ---
EXAMINATION: XR CHEST CLINICAL INFORMATION: Cough with white sputum. COMPARISON: Chest radiograph 05/24/2023. TECHNIQUE: 2 views of the chest were obtained. FINDINGS: Background of emphysema. Query very subtle focal hazy opacities in the lower lungs bilaterally. No pleural effusion or pneumothorax. No evidence of pulmonary edema. Normal appearance of the cardiomediastinal silhouette. Thoracic spondylosis. No acute osseous findings. XR/XR chest 2V IMPRESSION: Very subtle focal hazy opacities worrisome for early atypical infiltrates, recommend clinical correlation for pneumonia and short-term follow-up to ensure resolution.
[2024-02-04 19:41] VITALS: BP 166/88; PULSE 90; RESP 19; TEMP 36.9; O2SAT 98; BMI 25.2
--- NOTE | 2024-02-04 19:42 | ED_ITS ---
HPI - General Adult General Chief complaint: Upper Respiratory Symptoms Stated complaint: productive cough Time Seen by Provider: 02/05/24 00:44 Source: patient and RN notes reviewed Mode of arrival: ambulatory Limitations: no limitations History of Present Illness HPI narrative: 78-year-old male with past medical history significant for multiple myeloma followed by Dr. Beach presents for evaluation of cough. Patient reports a productive cough that was worsening over the last 4 days. He states that he is beginning to have left back pain whenever he coughs He denies any significant shortness of breath or fevers. He reports getting chemotherapy twice a month Denies any history of CHF, leg swelling or recent travel He denies any chest pain Related Data Home Medications Medication Instructions Recorded Confirmed cholecalciferol (vit D3) 137.5 mcg 1 tab PO DAILY 05/24/23 01/15/24 (5,500 unit)-vit K2 200 mcg tablet omega-3s 300 pc-dau-bct-other 1 cap PO BEDTIME 05/24/23 01/15/24 [id number] oil 1,000 mg capsule ([place]-3 Fish Oil) Previous Rx's Medication Instructions Recorded sulfamethoxazole 400 1 tab PO DAILY #90 tabs 01/09/23 mg-trimethoprim 80 mg tablet benzonatate 100 mg capsule 200 mg (2 x 100 mg) PO TID PRN 05/25/23 Cough #30 caps ondansetron 8 mg disintegrating 8 mg PO Q8H PRN Nausea 05/27/23 tablet acyclovir 400 mg tablet 400 mg PO DAILY 05/28/23 amlodipine 10 mg tablet (Norvasc) 10 mg PO DAILY #90 tabs 08/25/23 metoprolol succinate 100 mg 100 mg PO DAILY #90 tabs 09/29/23 tablet,extended release 24 hr lisinopril 5 mg tablet 5 mg PO DAILY #90 tabs 10/05/23 hydrochlorothiazide 25 mg tablet 25 mg PO DAILY #90 tabs 10/26/23 finasteride 5 mg tablet 5 mg PO DAILY 90 days #90 tabs 11/17/23 atorvastatin 40 mg tablet 40 mg PO BEDTIME #90 tabs 12/07/23 azithromycin 250 mg tablet 250 mg PO DAILY 4 days #4 tabs 02/05/24 benzonatate 200 mg capsule 200 mg PO TID PRN cough #20 caps 02/05/24 cefuroxime axetil 500 mg tablet 500 mg PO BID #13 tabs 02/05/24 Allergies Allergy/AdvReac Type Severity Reaction Status Date / Time No Known Allergies Allergy Verified 02/04/24 19:41 Review of Systems 2 Constitutional: Constitutional: Denies body ache(s), Denies chills and Reports malaise Eyes: Eyes: Denies blurry vision ENT: Denies sore throat Cardiovascular: Cardiovascular: Denies chest pain and Reports dyspnea Respiratory: Respiratory: Reports chest congestion, Reports cough, Reports excessive phlegm production, Reports pain on inspiration, Reports pain with cough, Reports dyspnea and Denies wheezing Gastrointestinal: Gastrointestinal: Denies abdominal pain, Denies nausea and Denies vomiting Musculoskeletal: Musculoskeletal: Reports back pain (with coughing) Integumentary/Breasts: Skin/Breast: Denies rash Allergic/Immunologic: Allergic/Immunologic: Denies wheezing PMFSH Past Medical History Medical History Pneumonia Statin intolerance HTN (hypertension) AAA (abdominal aortic aneurysm) Vitamin D deficiency Subclinical hyperthyroidism Multinodular thyroid Pancytopenia Leukopenia Multiple myeloma Surgical History Hx of hernia repair (07/08/18) History of bone marrow biopsy Hx of tooth extraction History of back surgery Hx of umbilical hernia repair (06/28/13) History of AAA (abdominal aortic aneurysm) repair Family History Family History Father CVD (cardiovascular disease) AAA (abdominal aortic aneurysm) Mother Stomach cancer Social History Social History Household Members: Spouse Housing: House Are you a primary nurse behavioral health care to a significant other at home: No Do you presently have visiting nurse or other home services: No Alcohol intake: former Comment: Patient refuses bed alarm Patient Tobacco Use Status: Former Tobacco user Quit Date: 11 yrs ago Years Smoked: 38 e-Cigarette/Vaping Use: Never Used Second Hand Smoke Exposure: No Special tiesha needs: No Agree to transfusion: Yes Advance Directives: Yes Advance Directives on File: Yes Advance Directives Date on File: 01/11/21 service: Yes Current occupational status: employed and retired Cognitive needs: No Hearing needs: No Vision needs: No Physical Exam ED Vital Signs: Vital Signs - 24 hr 02/04/24 19:41 02/04/24 23:16 02/05/24 01:10 Temperature 98.5 F 97.9 F 98.2 F Pulse Rate 90 74 74 Respiratory Rate 19 17 16 Blood Pressure 166/88 H 155/98 H 150/89 H Pulse Oximetry 98 94 Oxygen Delivery Method Room Air Room Air Room Air BMI result Body Mass Index 25.2 Const General: healthy appearing, comfortable, no acute distress, alert and awake Nutritional Appearance: well nourished Orientation/consciousness: patient oriented x3 HENMT Head: Yes normocephalic and Yes atraumatic Eyes Eyelids: Yes eyelids normal Conjunctivae: conjunctivae normal Sclerae: sclerae normal Corneas: corneas normal Pupils: Equal, round and reactive pupils present EOM: EOMs intact bilaterally Neck Neck: Yes full ROM Resp Other: Faint rhonchi heard bilateral bases right greater than left Effort & Inspection: normal respiratory effort, able to speak in complete sentences and not labored Auscultation: not clear to auscultation bilaterally Cardio Rate: regular rate Rhythm: regular rhythm GI Inspection: No distended Palpation (GI): Soft to palpation, not firm, nontender, no guarding and not rigid Skin General skin exam: elasticity normal Neuro General: patient oriented x3 Cranial nerves: Yes Equal, round and reactive pupils present and Yes Bilaterally intact EOM present Cognition (Neuro): normal cognition Extrem Other: Moving all extremities well without any obvious deformities Course Course Course Narrative: RME:?78 yo male hx of HTN, AAA, PVD, multiple myeloma, subclinical hyperthyrdoidism here w/ cough productive of white sputum x1 week. had huge coughing fit prior to arrival. taking OTC cough meds without relief. last chemo treatment 6 days ago. hx of GERD, follows with Dr. reed, recently stopped taking pantoprazole. no sick contacts. lungs w/ crackles to left base labs, viral serology, xray ordered Full HPI, ROS and PE to be performed by the primary ED provider. Medical Decision Making Medical Decision Making MDM Narrative: 78-year-old male presents for evaluation of productive cough with back pain with coughing for the last 4 days. He denies any sick contacts, his vital signs are within normal limits. His viral swabs were negative. Patient does not have a leukocytosis but is immunocompromised. He has a very mild normocytic anemia and a thrombocytopenia likely related to his chemotherapy and multiple myeloma. There is no bandemia. No significant electrolyte abnormalities. Patient's chest x-ray shows a very subtle focal hazy opacification in the lower lungs bilaterally. X-ray findings are consistent with atypical pneumonia which is consistent with the patient's clinical picture. We will treat azithromycin and add on cefuroxime. Patient passed ambulation trial his oxygen saturation maintaining above 92%. He feels well enough for discharge return precautions were given Differential Diagnosis Differential Diagnoses: The differential diagnosis associated with the presentation includes Community-acquired pneumonia Bronchitis Upper respiratory infection COVID-19 CHF Lab Data MDM Lab Attestation statement: I reviewed the patient's lab results. See above 02/04/24 20:44 02/04/24 20:44 Labs: Lab Results 02/04/24 Range/Units 20:44 WBC 5.4 (4.8-10.8) X10*3/uL RBC 4.06 L (4.60-5.80) X10*6/uL Hgb 13.4 L (14.0-18.0) g/dl Hct 39.1 L (42.0-52.0) % MCV 96.3 (80.0-98.0) fL MCH 33.0 (27.0-33.0) pg MCHC 34.3 (31.0-36.0) g/dl RDW 13.1 (11.0-16.0) % Plt Count 102 L D (160-400) X10*3/uL MPV 11.2 (9.4-12.4) fL Immature Gran % (Auto) 0.6 H (0.0-0.4) % Neut % (Auto) 65.9 (45-73) % Lymph % (Auto) 16.5 L (20-40) % [place] % (Auto) 15.0 H (2-11) % Eos % (Auto) 1.8 (0-4) % Baso % (Auto) 0.2 (0-2) % Lymph # (Auto) 0.9 L (1.2-4.9) X10*3/uL [place] # (Auto) 0.8 (0.1-1.2) X10*3/uL Eos # (Auto) 0.1 (0.0-0.4) X10*3/uL Baso # (Auto) 0.0 (0.0-0.2) X10*3/uL Abs Immat Gran (auto) 0.03 (0.00-0.03) X10*3/uL Absolute Neuts (auto) 3.6 (2.0-8.3) x10*3/uL Absolute Nucleated RBC 0.000 (0.0-0.012) X10*3/uL Nucleated RBC % (auto) 0.0 (0.0-0.2) /100WBC Sodium 142 (135-145) mmol/L Potassium 4.0 (3.3-5.1) mmol/L Chloride 103 (96-108) mmol/L Carbon Dioxide 30 H (22-29) mmol/L Anion Gap 13 (12-20) BUN 21 H (9-16) mg/dL Creatinine 0.88 (0.5-1.4) mg/dL Estim Creat Clear Calc 68.0 Estimated GFR > 60 Random Glucose 91 (60-115) mg/dL Calcium 9.4 (8.4-10.2) mg/dL Magnesium 1.7 (1.6-2.6) mg/dL Total Bilirubin 0.6 (0.0-1.0) mg/dL AST 16 (5-37) U/L ALT 11 (0-40) U/L Alkaline Phosphatase 83 (39-117) U/L Total Protein 6.0 L (6.5-8.0) g/dL Albumin 4.0 (3.5-5.0) g/dL Lipase 19 (8-78) U/L Influenza Type A (PCR) NEGATIVE (Negative) Influenza Type B (PCR) NEGATIVE (Negative) RSV RNA Qual (PCR) NEGATIVE (Negative) SARS-CoV-2 RNA (RT-PCR) NEGATIVE (Negative) Independent Interpretation I performed an independent interpretation of an: Plain X-Ray (Agree with Radiology interpretation, faint infiltrate in the bilateral lower lobes) Tests considered The following testing was considered but not selected: Considered CT imaging of the chest, however atypical pneumonia is consistent with the patient's clinical picture so we will treat for this. Prescription Management I considered prescription management with: Antibiotic Chronic Conditions Patient?s care impacted by: Cancer Discharge Plan Discharge Clinical Impression: Community acquired pneumonia Patient Disposition: Home, Self-Care Instructions: Community Acquired Pneumonia (ED) Additional Instructions: Your blood work was reassuring. Your x-ray showed a subtle pneumonia Take both antibiotics as prescribed Call your primary doctor to schedule follow-up You may use benzonatate as needed for coughing Return for new or worsening symptoms, especially if you have worsening shortness of breath or fevers Prescriptions: New cefuroxime axetil 500 mg tablet 500 mg PO BID Qty: 13 0RF azithromycin 250 mg tablet 250 mg PO DAILY 4 Days Qty: 4 0RF Rx Instructions: start on day 2 of therapy benzonatate 200 mg capsule 200 mg PO TID PRN (Reason: cough) Qty: 20 0RF No Action sulfamethoxazole-trimethoprim 400-80 mg tablet 1 tab PO DAILY Qty: 90 6RF ondansetron 8 mg tablet,disintegrating 8 mg PO Q8H PRN (Reason: Nausea) 4RF acyclovir 400 mg tablet 400 mg PO DAILY 3RF amlodipine [Norvasc] 10 mg tablet 10 mg PO DAILY Qty: 90 1RF metoprolol succinate 100 mg tablet extended release 24 hr 100 mg PO DAILY Qty: 90 1RF lisinopril 5 mg tablet 5 mg PO DAILY Qty: 90 1RF hydrochlorothiazide 25 mg tablet 25 mg PO DAILY Qty: 90 1RF atorvastatin 40 mg tablet 40 mg PO BEDTIME Qty: 90 3RF [place]-3 Fish Oil 300-1,000 mg Capsule 1 cap PO BEDTIME vitamin D3-vitamin K2 137.5-200 mcg Tablet 1 tab PO DAILY benzonatate 100 mg Capsule 200 mg PO TID PRN (Reason: Cough) Qty: 30 0RF finasteride 5 mg tablet 5 mg PO DAILY 90 Days Qty: 90 1RF
[2024-02-04 20:50] LABS: MANUAL DIFF FLAG NO
[2024-02-04 20:54] LABS: Basophils Percent Auto 0.2 % (0-2); Eosinophils Absolute Auto 0.1 X10*3/uL (0.0-0.4); Eosinophils Percent Auto 1.8 % (0-4); Hematocrit 39.1 % (42.0-52.0); Hemoglobin 13.4 g/dl (14.0-18.0); Imm Gran Abs Auto 0.03 X10*3/uL (0.00-0.03); Imm Gran Pct Auto 0.6 % (0.0-0.4); Lymphocytes Absolute Auto 0.9 X10*3/uL (1.2-4.9); Lymphocytes Percent Auto 16.5 % (20-40); Mean Corpuscular HGB Conc 34.3 g/dl (31.0-36.0); Mean Corpuscular Volume 96.3 fL (80.0-98.0); Mean Platelet Volume 11.2 fL (9.4-12.4); Monocytes Absolute Auto 0.8 X10*3/uL (0.1-1.2); Neutrophils Absolute Auto 3.6 x10*3/uL (2.0-8.3); Neutrophils Percent Auto 65.9 % (45-73); Platelet Count 102 X10*3/uL (160-400); Red Blood Count 4.06 X10*6/uL (4.60-5.80); Red Cell Distribution Width 13.1 % (11.0-16.0); White Blood Count 5.4 X10*3/uL (4.8-10.8)
[2024-02-04 21:11] LABS: Alanine Aminotransferase 11 U/L (0-40); Alkaline Phosphatase 83 U/L (39-117); Anion Gap 13 (12-20); Aspartate Amino Transferase 16 U/L (5-37); Bilirubin Total 0.6 mg/dL (0.0-1.0); Blood Urea Nitrogen 21 mg/dL (9-16); Calcium 9.4 mg/dL (8.4-10.2); Carbon Dioxide 30 mmol/L (22-29); Chloride 103 mmol/L (96-108); Estimated Glomerular Filt Rate > 60; Glucose Random 91 mg/dL (60-115); Lipase 19 U/L (8-78); Magnesium 1.7 mg/dL (1.6-2.6); Sodium 142 mmol/L (135-145)
[2024-02-04 21:28] LABS: Influenza A PCR NEGATIVE (Negative); Influenza B PCR NEGATIVE (Negative); Resp Syncy Virus RNA Qual PCR NEGATIVE (Negative); SARS COV2 PCR INHOUSE NEGATIVE (Negative)
[2024-02-04 23:16] VITALS: BP 155/98; PULSE 74; RESP 17; TEMP 36.6
--- NOTE | 2024-02-05 01:06 | MHC.EDTECH ---
Patient went for a walk while checking o2 sat ,patient sat remain between 92 _94 % Provider Rene was made aware .
[2024-02-05 01:10] VITALS: BP 150/89; PULSE 74; RESP 16; TEMP 36.8; O2SAT 94
[2024-02-05] MEDS: Azithromycin 500 MG TABLET PO (01:48)
[2024-02-05] MEDS: cefuroxime axetiL 500 MG TABLET PO (01:48)
[2024-02-05 01:59] VITALS: BP 150/89; PULSE 74; RESP 16; TEMP 36.8; O2SAT 94
== END 2024-02-05 02:00 | disposition home or self-care (01) ==
PROVIDERS: Physician Assistant Medical; Emergency Provider Emergency Medicine; PCP Nurse Practitioner Family
DX: J18.9 Pneumonia, unspecified organism (principal); C90.00 Multiple myeloma not having achieved remission; R05.9 Cough, unspecified; I10 Essential (primary) hypertension; I71.40 Abdominal aortic aneurysm, without rupture, unspecified; Z79.60 Long term (current) use of unspecified immunomodulators and immunosuppressants; Z79.899 Other long term (current) drug therapy
CPT/HCPCS: 0241U; 71046; 80053; 83690; 83735; 85025; 99283; 99284

== ENCOUNTER 2024-02-11 07:42 | Outpatient (REF) | payer MEDICARE, SELFPAY ==
[2024-02-11 10:18] LABS: MANUAL DIFF FLAG NO
[2024-02-11 10:23] LABS: Basophils Absolute Auto 0.1 X10*3/uL (0.0-0.2); Basophils Percent Auto 0.9 % (0-2); Eosinophils Absolute Auto 0.1 X10*3/uL (0.0-0.4); Eosinophils Percent Auto 1.3 % (0-4); Hematocrit 42.6 % (42.0-52.0); Hemoglobin 14.3 g/dl (14.0-18.0); Imm Gran Abs Auto 0.04 X10*3/uL (0.00-0.03); Imm Gran Pct Auto 0.7 % (0.0-0.4); Lymphocytes Absolute Auto 1.1 X10*3/uL (1.2-4.9); Lymphocytes Percent Auto 18.8 % (20-40); Mean Corpuscular HGB Conc 33.6 g/dl (31.0-36.0); Mean Corpuscular Hemoglobin 32.7 pg (27.0-33.0); Mean Corpuscular Volume 97.5 fL (80.0-98.0); Mean Platelet Volume 10.7 fL (9.4-12.4); Monocytes Absolute Auto 0.6 X10*3/uL (0.1-1.2); Neutrophils Absolute Auto 3.8 x10*3/uL (2.0-8.3); Neutrophils Percent Auto 68.3 % (45-73); Platelet Count 196 X10*3/uL (160-400); Red Blood Count 4.37 X10*6/uL (4.60-5.80); Red Cell Distribution Width 13.1 % (11.0-16.0); White Blood Count 5.6 X10*3/uL (4.8-10.8)
[2024-02-11 10:52] LABS: Alanine Aminotransferase 12 U/L (0-40); Albumin Level 4.1 g/dL (3.5-5.0); Alkaline Phosphatase 89 U/L (39-117); Anion Gap 12 (12-20); Aspartate Amino Transferase 17 U/L (5-37); Bilirubin Total 0.5 mg/dL (0.0-1.0); Blood Urea Nitrogen 16 mg/dL (9-16); Calcium 9.4 mg/dL (8.4-10.2); Carbon Dioxide 29 mmol/L (22-29); Chloride 103 mmol/L (96-108); Estimated Glomerular Filt Rate > 60; Glucose Random 85 mg/dL (60-115); Potassium 3.5 mmol/L (3.3-5.1); Sodium 140 mmol/L (135-145); Total Protein 6.2 g/dL (6.5-8.0)
== END 2024-02-11 07:43 | disposition home or self-care (01) ==
LOC: HO.HMGCLDS 07:42
PROVIDERS: PCP Nurse Practitioner Family; Visit Provider Internal Medicine Medical Oncology
DX: C90.00 Multiple myeloma not having achieved remission (principal)
CPT/HCPCS: 36415; 80053; 85025

== ENCOUNTER 2024-02-18 07:03 | Outpatient (REF) | payer MEDICARE, SELFPAY ==
[2024-02-18 10:15] LABS: MANUAL DIFF FLAG NO
[2024-02-18 10:36] LABS: Basophils Percent Auto 0.8 % (0-2); Eosinophils Absolute Auto 0.1 X10*3/uL (0.0-0.4); Eosinophils Percent Auto 1.3 % (0-4); Hematocrit 39.6 % (42.0-52.0); Hemoglobin 13.4 g/dl (14.0-18.0); Imm Gran Abs Auto 0.02 X10*3/uL (0.00-0.03); Imm Gran Pct Auto 0.4 % (0.0-0.4); Lymphocytes Absolute Auto 0.9 X10*3/uL (1.2-4.9); Lymphocytes Percent Auto 18.9 % (20-40); Mean Corpuscular HGB Conc 33.8 g/dl (31.0-36.0); Mean Corpuscular Hemoglobin 33.1 pg (27.0-33.0); Mean Corpuscular Volume 97.8 fL (80.0-98.0); Mean Platelet Volume 11.3 fL (9.4-12.4); Monocytes Absolute Auto 0.4 X10*3/uL (0.1-1.2); Neutrophils Absolute Auto 3.4 x10*3/uL (2.0-8.3); Neutrophils Percent Auto 70.6 % (45-73); Platelet Count 128 X10*3/uL (160-400); Red Blood Count 4.05 X10*6/uL (4.60-5.80); Red Cell Distribution Width 13.2 % (11.0-16.0); White Blood Count 4.8 X10*3/uL (4.8-10.8)
[2024-02-18 11:33] LABS: Alanine Aminotransferase 14 U/L (0-40); Albumin Level 3.9 g/dL (3.5-5.0); Anion Gap 11 (12-20); Aspartate Amino Transferase 17 U/L (5-37); Bilirubin Total 0.7 mg/dL (0.0-1.0); Blood Urea Nitrogen 15 mg/dL (9-16); Calcium 8.8 mg/dL (8.4-10.2); Carbon Dioxide 29 mmol/L (22-29); Chloride 103 mmol/L (96-108); Estimated Glomerular Filt Rate > 60; Glucose Random 148 mg/dL (60-115); Potassium 3.5 mmol/L (3.3-5.1); Sodium 139 mmol/L (135-145); Total Protein 5.6 g/dL (6.5-8.0)
[2024-02-18 11:45] LABS: Alkaline Phosphatase 76 U/L (39-117)
== END 2024-02-18 07:04 | disposition home or self-care (01) ==
LOC: HO.HMGCLDS 07:03
PROVIDERS: PCP Nurse Practitioner Family; Visit Provider Internal Medicine Medical Oncology
DX: C90.00 Multiple myeloma not having achieved remission (principal)
CPT/HCPCS: 36415; 80053; 85025

== ENCOUNTER 2024-03-03 06:07 | Outpatient (REF) | payer MEDICARE, SELFPAY ==
[2024-03-03 10:23] LABS: MANUAL DIFF FLAG NO
[2024-03-03 10:43] LABS: Alanine Aminotransferase 14 U/L (0-40); Albumin Level 4.2 g/dL (3.5-5.0); Alkaline Phosphatase 78 U/L (39-117); Anion Gap 9 (12-20); Aspartate Amino Transferase 16 U/L (5-37); Bilirubin Total 0.6 mg/dL (0.0-1.0); Blood Urea Nitrogen 18 mg/dL (9-16); Calcium 9.3 mg/dL (8.4-10.2); Carbon Dioxide 31 mmol/L (22-29); Chloride 105 mmol/L (96-108); Estimated Glomerular Filt Rate > 60; Glucose Random 117 mg/dL (60-115); Potassium 3.2 mmol/L (3.3-5.1); Sodium 142 mmol/L (135-145)
[2024-03-03 10:47] LABS: Basophils Percent Auto 0.6 % (0-2); Eosinophils Absolute Auto 0.1 X10*3/uL (0.0-0.4); Eosinophils Percent Auto 2.3 % (0-4); Hematocrit 42.5 % (42.0-52.0); Hemoglobin 14.1 g/dl (14.0-18.0); Imm Gran Abs Auto 0.01 X10*3/uL (0.00-0.03); Imm Gran Pct Auto 0.2 % (0.0-0.4); Lymphocytes Absolute Auto 1.7 X10*3/uL (1.2-4.9); Lymphocytes Percent Auto 31.8 % (20-40); Mean Corpuscular HGB Conc 33.2 g/dl (31.0-36.0); Mean Corpuscular Hemoglobin 32.6 pg (27.0-33.0); Mean Corpuscular Volume 98.4 fL (80.0-98.0); Mean Platelet Volume 11.1 fL (9.4-12.4); Monocytes Absolute Auto 0.6 X10*3/uL (0.1-1.2); Monocytes Percent Auto 10.4 % (2-11); Neutrophils Absolute Auto 2.9 x10*3/uL (2.0-8.3); Neutrophils Percent Auto 54.7 % (45-73); Platelet Count 149 X10*3/uL (160-400); Red Blood Count 4.32 X10*6/uL (4.60-5.80); White Blood Count 5.3 X10*3/uL (4.8-10.8)
== END 2024-03-03 06:08 | disposition home or self-care (01) ==
LOC: HO.HMGCLDS 06:07
PROVIDERS: PCP Nurse Practitioner Family; Visit Provider Internal Medicine Medical Oncology
DX: C90.00 Multiple myeloma not having achieved remission (principal)
CPT/HCPCS: 36415; 80053; 85025

== ENCOUNTER 2024-03-17 06:12 | Outpatient (REF) | payer MEDICARE, SELFPAY ==
[2024-03-17 10:36] LABS: MANUAL DIFF FLAG NO
[2024-03-17 10:50] LABS: Basophils Percent Auto 0.4 % (0-2); Eosinophils Absolute Auto 0.1 X10*3/uL (0.0-0.4); Eosinophils Percent Auto 1.3 % (0-4); Hematocrit 43.5 % (42.0-52.0); Hemoglobin 14.3 g/dl (14.0-18.0); Imm Gran Abs Auto 0.01 X10*3/uL (0.00-0.03); Imm Gran Pct Auto 0.2 % (0.0-0.4); Lymphocytes Absolute Auto 1.1 X10*3/uL (1.2-4.9); Lymphocytes Percent Auto 21.7 % (20-40); Mean Corpuscular HGB Conc 32.9 g/dl (31.0-36.0); Mean Corpuscular Hemoglobin 32.6 pg (27.0-33.0); Mean Corpuscular Volume 99.3 fL (80.0-98.0); Mean Platelet Volume 11.4 fL (9.4-12.4); Monocytes Absolute Auto 0.5 X10*3/uL (0.1-1.2); Monocytes Percent Auto 9.9 % (2-11); Neutrophils Absolute Auto 3.5 x10*3/uL (2.0-8.3); Neutrophils Percent Auto 66.5 % (45-73); Platelet Count 146 X10*3/uL (160-400); Red Blood Count 4.38 X10*6/uL (4.60-5.80); Red Cell Distribution Width 13.9 % (11.0-16.0); White Blood Count 5.3 X10*3/uL (4.8-10.8)
[2024-03-17 11:05] LABS: Alanine Aminotransferase 12 U/L (0-40); Albumin Level 4.2 g/dL (3.5-5.0); Alkaline Phosphatase 70 U/L (39-117); Anion Gap 14 (12-20); Aspartate Amino Transferase 16 U/L (5-37); Bilirubin Total 0.7 mg/dL (0.0-1.0); Blood Urea Nitrogen 17 mg/dL (9-16); Calcium 9.7 mg/dL (8.4-10.2); Carbon Dioxide 27 mmol/L (22-29); Chloride 104 mmol/L (96-108); Estimated Glomerular Filt Rate > 60; Glucose Random 115 mg/dL (60-115); Potassium 3.5 mmol/L (3.3-5.1); Sodium 141 mmol/L (135-145); Total Protein 6.1 g/dL (6.5-8.0)
[2024-03-17 11:18] LABS: Prostate Specific Antigen Scr 3.29 ng/mL (<0.05-4.0)
[2024-03-18 16:53] LABS: Kappa Light Chain, Free Serum 1.8 mg/L (3.3-19.4); Kappa/Lambda Lt Ch Free Ratio >1.20 (0.26-1.65); Lambda Light Chain, Free Serum <1.5 mg/L (5.7-26.3)
[2024-03-22 11:45] LABS: IgA 7 mg/dL (70-320); IgG 298 mg/dL (600-1540); IgM <5 mg/dL (50-300)
== END 2024-03-17 06:13 | disposition home or self-care (01) ==
LOC: HO.HMGCLDS 06:12
PROVIDERS: PCP Nurse Practitioner Family; Visit Provider Internal Medicine Medical Oncology
DX: C90.00 Multiple myeloma not having achieved remission (principal); Z12.5 Encounter for screening for malignant neoplasm of prostate
CPT/HCPCS: 36415; 80053; 82784; 83521; 84153; 85025; 86334

== ENCOUNTER 2024-03-22 08:39 | Outpatient (AMB) | payer MEDICARE, SELFPAY ==
[2024-03-22 08:41] VITALS: BP 140/64; PULSE 67; BMI 25.4
--- NOTE | 2024-03-22 08:41 | MHC.OFFVIS ---
Vital Signs 03/22/24 08:41 Height 5 ft 8 in Weight 167 lb 1.766 oz BMI 25.4 BP 140/64 H Blood Pressure Location Lt brachial Position Sitting Pulse 67 Intake Visit Reasons: r/s 02/08/24 1 year followup w/ekg [employer] Required: No Accompanied by: Self / Same As Patient Allergies No Known Allergies Allergy (Verified 02/04/24 19:41) Medication List - Last Reconciled 03/22/24 by Fer Allen MD acyclovir 400 mg PO DAILY amlodipine (Norvasc) 10 mg PO DAILY atorvastatin 40 mg PO BEDTIME hydrochlorothiazide 25 mg PO DAILY lisinopril 5 mg PO DAILY metoprolol succinate ER 100 mg PO DAILY [id number]-fish oil 300-1,000 mg ([place]-3 Fish Oil) 1 cap PO BEDTIME ondansetron 8 mg PO Q8H PRN potassium chloride ER 20 mEq PO DAILY sulfamethoxazole-trimethoprim 400-80 mg 1 tab PO DAILY vitamin D3-vitamin K2 137.5-200 mcg 1 tab PO DAILY HPI Comments Details: Hussein returns for follow-up regarding vascular disease. He has a history of endovascular stenting of abdominal aortic aneurysm. He also had peripheral vascular disease in his lower extremities. Previously going to [facility] but now switched to our vascular surgeon. He has hypertension and dyslipidemia on appropriate therapy. Due to complaints of chest pains he did undergo cardiac catheterization in the past but that did not show any significant disease. Since last seen, no new complaints. He states he is feeling good. Clinic blood pressures are on the higher side but he states that he does check his blood pressures at home and they are only in the 120s or so. Hence not clear why there is a discrepancy. [facility] Medical History Pneumonia Statin intolerance HTN (hypertension) AAA (abdominal aortic aneurysm) Vitamin D deficiency Subclinical hyperthyroidism Multinodular thyroid Pancytopenia Leukopenia Multiple myeloma Surgical History (Reviewed 03/22/24 @ 08:46 by Norma Oconnell [facility]) Hx of hernia repair (07/08/18) History of bone marrow biopsy Hx of tooth extraction History of back surgery Hx of umbilical hernia repair (06/28/13) History of AAA (abdominal aortic aneurysm) repair Family History Father CVD (cardiovascular disease) AAA (abdominal aortic aneurysm) Mother Stomach cancer Social History Household Members: Spouse Housing: House Are you a primary career advisor to a significant other at home: No Do you presently have visiting nurse or other home services: No Alcohol intake: former Comment: Patient refuses bed alarm Patient Tobacco Use Status: Former Tobacco user Quit Date: 11 yrs ago Years Smoked: 38 e-Cigarette/Vaping Use: Never Used Second Hand Smoke Exposure: No Special tiesha needs: No Agree to transfusion: Yes Advance Directives Date on File: 01/11/21 service: Yes Current occupational status: employed and retired Cognitive needs: No Hearing needs: No Vision needs: No Review of Systems Const Denies chills, Denies fatigue, Denies fever(s), Denies frequent falls, Denies weakness, Denies weight gain and Denies weight loss ENT Denies dizziness Card Denies chest pain, Denies leg edema, Denies lightheadedness, Denies palpitations, Denies dyspnea and Denies dyspnea on exertion Resp Denies cough, Denies dyspnea and Denies dyspnea on exertion GI Denies hematochezia Musc Denies abnormal gait, Denies muscle weakness, Denies numbness, Denies radiating pain into limb and Denies tingling Neuro Denies abnormal gait, Denies dizziness, Denies frequent falls, Denies numbness, Denies tingling and Denies weakness Endo Denies fatigue and Denies palpitations Physical Exam Vital Signs: Last Vital Signs Pulse 67 03/22/24 08:41 BP 140/64 H 03/22/24 08:41 BMI result Body Mass Index 25.4 Const General: comfortable and no acute distress Orientation/consciousness: patient oriented x3 HEENT Other: Unremarkable Head: Yes normal to inspection Neck Neck: Yes normal visual inspection Chest Chest palpation & inspection: normal inspection of the chest Resp Auscultation: clear to auscultation bilaterally Cardio Palpation: normal PMI Heart sounds: S1 normal heart sound present, S2 normal heart sound present, no gallops, Murmur heart sound present systolic II/ and at the right sternal border and no rubs GI Palpation (GI): Soft to palpation Back/Spine/Pelvis Other: unremarkable Skin General skin exam: no rashes or lesions noted Neuro General: patient oriented x3 Extrem General: Yes normal to inspection Psych Mental Status: mental status grossly normal Office Procedures EKG Details: EKG with sinus rhythm at 67/Min; supraventricular and ventricular ectopy. Minimal criteria for LVH. [id number], Complete Assessment & Plan Assessment & Plan (1) Atherosclerotic cardiovascular disease: Code(s): I25.10 - Atherosclerotic heart disease of [place] coronary artery without angina pectoris Category: Medical (2) Non-rheumatic aortic stenosis: Code(s): I35.0 - Nonrheumatic aortic (valve) stenosis Category: Medical (3) Mitral annular calcification: Code(s): I05.9 - Rheumatic mitral valve disease, unspecified Category: Medical (4) Essential hypertension: Code(s): I10 - Essential (primary) hypertension Category: Medical (5) History of AAA (abdominal aortic aneurysm) repair: Code(s): Z98.890 - Other specified postprocedural states Category: Surgical (6) Peripheral vascular disease: Code(s): I73.9 - Peripheral vascular disease, unspecified Category: Medical (7) Statin intolerance: Code(s): Z78.9 - Other specified health status Category: Medical Plan Cardiac studies reviewed. In the recent echocardiogram, LVEF is 59%. Moderately increased right ventricular size. Moderate biatrial enlargement. Mild aortic stenosis and moderate mitral annular calcification. Ascending aortic size 4.1 cm. Cardiac catheterization 2019 showed only mild disease in the 2nd diagonal, but otherwise normal coronary arteries. Overall, cardiac status seems stable. He may remain on beta-blockers and statins. Last LDL cholesterol is 68 mg/dL. Low-dose aspirin if no contraindications. For hypertension, he is on amlodipine, lisinopril, hydrochlorothiazide, metoprolol. Clinic blood pressure is on the higher side, but home blood pressures are lower. He states he will bring his cuff next time so it can be checked with the office measurement. Then probably go up on the lisinopril. He would rather hold off on changes today. Coding Level of Care Code Est Pt Level 4 (42287) Diagnoses Atherosclerotic cardiovascular disease I25.10 Non-rheumatic aortic stenosis I35.0 Mitral annular calcification I05.9 Essential hypertension I10 History of AAA (abdominal aortic aneurysm) repair Z98.890 Peripheral vascular disease I73.9 Statin intolerance Z78.9 CPT Codes EKG - CPT: 89467-[id number], Complete ([id number])
== END 2024-03-22 08:59 | disposition home or self-care (01) ==
PROVIDERS: PCP Nurse Practitioner Family; Visit Provider Internal Medicine
DX: I25.10 Atherosclerotic heart disease of native coronary artery without angina pectoris (principal); I35.0 Nonrheumatic aortic (valve) stenosis; I05.9 Rheumatic mitral valve disease, unspecified; I10 Essential (primary) hypertension; Z98.890 Other specified postprocedural states; I73.9 Peripheral vascular disease, unspecified; Z78.9 Other specified health status
CPT/HCPCS: 93010; 99214

== ENCOUNTER → 2024-03-22 08:39 | Outpatient (BNVA) | payer MEDICARE, SELFPAY | PROVIDERS: PCP Nurse Practitioner Family; Visit Provider Internal Medicine | DX: I25.10 Atherosclerotic heart disease of native coronary artery without angina pectoris (principal); I35.0 Nonrheumatic aortic (valve) stenosis; I05.9 Rheumatic mitral valve disease, unspecified; I10 Essential (primary) hypertension; I73.9 Peripheral vascular disease, unspecified; Z86.79 Personal history of other diseases of the circulatory system; Z79.899 Other long term (current) drug therapy; Z78.9 Other specified health status | CPT/HCPCS: 93005; 99212 ==

== ENCOUNTER 2024-03-31 06:01 | Outpatient (REF) | payer MEDICARE, SELFPAY ==
[2024-03-31 10:27] LABS: Basophils Percent Auto 0.5 % (0-2); Eosinophils Absolute Auto 0.1 X10*3/uL (0.0-0.4); Eosinophils Percent Auto 1.6 % (0-4); Hematocrit 41.1 % (42.0-52.0); Imm Gran Abs Auto 0.02 X10*3/uL (0.00-0.03); Imm Gran Pct Auto 0.4 % (0.0-0.4); Lymphocytes Absolute Auto 1.3 X10*3/uL (1.2-4.9); Lymphocytes Percent Auto 23.5 % (20-40); MANUAL DIFF FLAG NO; Mean Corpuscular HGB Conc 34.1 g/dl (31.0-36.0); Mean Corpuscular Volume 99.8 fL (80.0-98.0); Mean Platelet Volume 11.4 fL (9.4-12.4); Monocytes Absolute Auto 0.5 X10*3/uL (0.1-1.2); Monocytes Percent Auto 9.3 % (2-11); Neutrophils Absolute Auto 3.6 x10*3/uL (2.0-8.3); Neutrophils Percent Auto 64.7 % (45-73); Platelet Count 142 X10*3/uL (160-400); Red Blood Count 4.12 X10*6/uL (4.60-5.80); Red Cell Distribution Width 13.8 % (11.0-16.0); White Blood Count 5.6 X10*3/uL (4.8-10.8)
[2024-03-31 11:09] LABS: Alanine Aminotransferase 12 U/L (0-40); Albumin Level 4.1 g/dL (3.5-5.0); Alkaline Phosphatase 75 U/L (39-117); Anion Gap 14 (12-20); Aspartate Amino Transferase 21 U/L (5-37); Bilirubin Total 0.5 mg/dL (0.0-1.0); Blood Urea Nitrogen 15 mg/dL (9-16); Carbon Dioxide 25 mmol/L (22-29); Chloride 107 mmol/L (96-108); Estimated Glomerular Filt Rate > 60; Glucose Random 156 mg/dL (60-115); Potassium 3.6 mmol/L (3.3-5.1); Sodium 142 mmol/L (135-145); Total Protein 5.9 g/dL (6.5-8.0)
== END 2024-03-31 06:02 | disposition home or self-care (01) ==
LOC: HO.HMGCLDS 06:01
PROVIDERS: PCP Nurse Practitioner Family; Visit Provider Internal Medicine Medical Oncology
DX: C90.00 Multiple myeloma not having achieved remission (principal)
CPT/HCPCS: 36415; 80053; 85025

== ENCOUNTER 2024-04-05 08:34 | Outpatient (AMB) | payer MEDICARE, SELFPAY ==
[2024-04-05 09:09] VITALS: BP 132/66; PULSE 62; O2SAT 97; BMI 25.2
--- NOTE | 2024-04-05 09:09 | MHC.PC.OV ---
Vital Signs 04/05/24 09:09 Height 5 ft 8 in Weight 166 lb BMI 25.2 BP 132/66 Blood Pressure Location Rt brachial Position Sitting Pulse 62 Pulse Source Pulse Oximeter Pulse Oximetry (%) 97 Oxygen Delivery Method Room Air Intake Visit Reasons: 6 Month F/U Intake Note: pt is here for 6 month follow up Allergies No Known Allergies Allergy (Verified 04/05/24 09:46) Medication List - Last Reconciled 04/05/24 by STEVE Mark acyclovir 400 mg PO DAILY amlodipine (Norvasc) 10 mg PO DAILY atorvastatin 40 mg PO BEDTIME hydrochlorothiazide 25 mg PO DAILY lisinopril 5 mg PO DAILY metoprolol succinate ER 100 mg PO DAILY onror-3c-zmp-epa-fish oil 300-1,000 mg (Goodman-3 Fish Oil) 1 cap PO BEDTIME ondansetron 8 mg PO Q8H PRN potassium chloride ER 20 mEq PO DAILY potassium chloride ER 20 mEq PO DAILY sulfamethoxazole-trimethoprim 400-80 mg 1 tab PO DAILY vitamin D3-vitamin K2 137.5-200 mcg 1 tab PO DAILY Tobacco use date assessed: 04/05/24 Fall risk assessment: 1 Fall in past year Last assessed Fall Risk: 04/05/24 Dental Screening Dental Screen Date: 04/05/24 Did you have a dental visit in the last 12 months?: Yes Did you have a dental problem in the last 6 months where you did not have access to dental care?: No Was dental information given to patient?: Patient has dentist HPI 6 Month F/U HPI Details HTN: Blood pressure is stable currently, managed with amlodipine 10mg, hydrochlorothiazide 25mg, lisinopril 5mg, and metoprolol 100mg. Pt will calibrate his BP cuff at his next medical appointment. Dyslipidemia: On atorvastatin 40mg and omega 3 fish oil. Will order labs. Denies chest pain, shortness of breath, headache, dizziness, and blurred vision. Pt has a hx of multiple myeloma. He is following up with hematology/oncology. [facility] Medical History Pneumonia Statin intolerance HTN (hypertension) AAA (abdominal aortic aneurysm) Vitamin D deficiency Subclinical hyperthyroidism Multinodular thyroid Pancytopenia Leukopenia Multiple myeloma Surgical History Hx of hernia repair (07/08/18) History of bone marrow biopsy Hx of tooth extraction History of back surgery Hx of umbilical hernia repair (06/28/13) History of AAA (abdominal aortic aneurysm) repair Family History Father CVD (cardiovascular disease) AAA (abdominal aortic aneurysm) Mother Stomach cancer Social History Household Members: Spouse Housing: House Are you a primary medicare contact specialist to a significant other at home: No Do you presently have visiting nurse or other home services: No Alcohol intake: former Comment: Patient refuses bed alarm Patient Tobacco Use Status: Former Tobacco user Quit Date: 11 yrs ago Years Smoked: 38 e-Cigarette/Vaping Use: Never Used Second Hand Smoke Exposure: No Special tiesha needs: No Agree to transfusion: Yes Advance Directives Date on File: 01/11/21 service: Yes Current occupational status: employed and retired Cognitive needs: No Hearing needs: No Vision needs: No Questionnaire PHQ-9 Over the last 2 weeks, how often have you been bothered by any of the following problems? 1. Little interest or pleasure in doing things: not at all 2. Feeling down, depressed, or hopeless: not at all 3. Trouble falling or staying asleep, or sleeping too much: not at all 4. Feeling tired or having little energy: not at all 5. Poor appetite or overeating: not at all 6. Feeling bad about yourself - or that you are a failure or have let yourself or your family down: not at all 7. Trouble concentrating on things, such as reading the newspaper or watching television: not at all 8. Moving or speaking so slowly that other people could have noticed. Or the opposite - being so fidgety or restless that you have been moving around a lot more than usual: not at all 9. Thoughts that you would be better off or of hurting yourself in some way: not at all Total score: 0 Depression Screening Interpretation: Negative Depression Screening Done: Yes 47930 - PHQ-9 Billing: Yes Source: Developed by Drs. Hussein Walton, Maxine Hidalgo, Elpidio Silveira and colleagues, with an educational artem from [email or web address]. Thrive Questionnaire Date Thrive assessed: 04/05/24 I am a: Patient What is your living situation today?: I have a steady place to live Within the past 12 months, did the food you bought not last and you didn't have the money to get more?: Never true Within the past 12 months, did you worry whether your food would run out before you got money to buy more?: Never true Do you have trouble paying for medicines?: No Do you have trouble getting transportation to medical appointments?: No Do you have trouble paying your heating and electricity bill?: No Do you have trouble taking care of your child, family member or friend?: No Do you have trouble with day-to-day activities such as bathing, preparing meals, shopping, managing finances, etc.?: No Are you currently unemployed and looking for a job?: No Are you interested in more education?: No Please select the resources that you would like help with: None Currently or been in a relationship where the following occur: no concerns reported THRIVE Score: 0 AUDIT C Alcohol Use Questionnaire (AUDIT-C) 1. How often do you have a drink containing alcohol?: Never 3. How often do you have six or more drinks on one occasion?: Never Total Score: 0 Score Reviewed/Action Taken: Yes LITTLE-7 AMB Questionnaire LITTLE-7 Date LITTLE - 7 assessed: 04/05/24 Feeling nervous, anxious, or on edge: 0 = Not at all Not being able to stop or control worryin = Not at all Worrying too much about different things: 0 = Not at all Trouble relaxin = Not at all Being so restless that it is hard to sit still: 0 = Not at all Becoming easily annoyed or irritable: 0 = Not at all Feeling afraid as if something awful might happen: 0 = Not at all Total LITTLE-7 score (0-4 normal; 5-9 mild; 10-14 moderate; 15-21 severe): 0 Source: Developed by Maxine Mc, Elpidio Silveira and colleagues, with an educational artem from [email or web address]. LITTLE-7 Assessment Billing LITTLE-7 Assessment Tool: LITTLE-7 Assessment 16363 Review of Systems Const Reports as per HPI Physical exam (Primary Care) Vital Signs: Last Vital Signs Pulse 62 04/05/24 09:09 BP 132/66 04/05/24 09:09 Pulse Ox 97 04/05/24 09:09 Oxygen Delivery Method Room Air 04/05/24 09:09 BMI result Body Mass Index 25.2 Tobacco/Smoking Status: Tobacco use Status Tobacco use date assessed 04/05/24 04/05/24 09:17 Patient Tobacco Use Status Former Tobacco user 04/05/24 09:09 e-Cigarette/Vaping Use Never Used 04/05/24 09:09 PHQ-9: PHQ-9 Score PHQ-9: Total score 0 04/05/24 09:26 Depression Screening Interpretation: Negative Thrive Assessment: Date of Thrive Assessment Date Thrive assessed 04/05/24 04/05/24 09:17 Currently or been in a relationship where the following occur: no concerns reported Const General: cooperative Orientation/consciousness: patient oriented x3 Resp Effort & Inspection: normal respiratory effort Auscultation: clear to auscultation bilaterally Cardio Rate: regular rate Rhythm: regular rhythm Heart sounds: S1 normal heart sound present, S2 normal heart sound present and Murmur heart sound present systolic Neuro General: patient oriented x3 Psych Appearance: grossly normal Mental Status: mental status grossly normal Speech and movement: Normal speech and movement present Affect: normal affect Attitude: cooperative Thought process: Normal thought process present Thought content: Normal thought content present Insight: Good insight present (Psych) Judgement: Good judgement present (Psych) Assessment and Plan Assessment & Plan (1) Dyslipidemia: Code(s): E78.5 - Hyperlipidemia, unspecified Plan: Labs ordered, continue current meds (2) HTN (hypertension): Code(s): I10 - Essential (primary) hypertension Plan: Stable, continue current meds (3) Vitamin D deficiency: Code(s): E55.9 - Vitamin D deficiency, unspecified Plan: Labs ordered Plan The patient agreed to the use of a medical information officer for this encounter. Scribed for STEVE Mcintyre by Sabina Lafleur medical information officer, on 04/05/2024 at 09:20 EST. Orders: Orders Comprehensive [place]. Panel Fast Today E78.5 - Hyperlipidemia, unspecified, I10 - Essential (primary) hypertension Vitamin D 25-OH Total Today E55.9 - Vitamin D deficiency, unspecified Lipid Panel Today E78.5 - Hyperlipidemia, unspecified, I10 - Essential (primary) hypertension TSH reflex Free T4 Today E78.5 - Hyperlipidemia, unspecified, I10 - Essential (primary) hypertension UA CC w/rflx Micro + Cult Today E78.5 - Hyperlipidemia, unspecified, I10 - Essential (primary) hypertension Coding Level of Care Code Est Pt Level 3 (36963) Diagnoses Dyslipidemia E78.5 HTN (hypertension) I10 Vitamin D deficiency E55.9 Additional Codes LITTLE-7 Assessment Billing - LITTLE-7 Assessment Tool: LITTLE-7 Assessment 29594 ([id number])
== END 2024-04-05 12:16 | disposition home or self-care (01) ==
PROVIDERS: PCP Nurse Practitioner Family; Visit Provider Nurse Practitioner Family
DX: E78.5 Hyperlipidemia, unspecified (principal); I10 Essential (primary) hypertension; E55.9 Vitamin D deficiency, unspecified
CPT/HCPCS: 99213

== ENCOUNTER 2024-04-14 06:07 | Outpatient (REF) | payer MEDICARE, SELFPAY ==
[2024-04-14 10:31] LABS: MANUAL DIFF FLAG NO
[2024-04-14 10:37] LABS: Basophils Percent Auto 0.5 % (0-2); Eosinophils Absolute Auto 0.1 X10*3/uL (0.0-0.4); Eosinophils Percent Auto 1.3 % (0-4); Hematocrit 41.7 % (42.0-52.0); Imm Gran Abs Auto 0.06 X10*3/uL (0.00-0.03); Imm Gran Pct Auto 0.7 % (0.0-0.4); Lymphocytes Absolute Auto 1.1 X10*3/uL (1.2-4.9); Lymphocytes Percent Auto 12.6 % (20-40); Mean Corpuscular HGB Conc 33.6 g/dl (31.0-36.0); Mean Corpuscular Hemoglobin 33.2 pg (27.0-33.0); Mean Corpuscular Volume 98.8 fL (80.0-98.0); Mean Platelet Volume 11.1 fL (9.4-12.4); Monocytes Absolute Auto 0.5 X10*3/uL (0.1-1.2); Monocytes Percent Auto 6.4 % (2-11); Neutrophils Absolute Auto 6.5 x10*3/uL (2.0-8.3); Neutrophils Percent Auto 78.5 % (45-73); Platelet Count 163 X10*3/uL (160-400); Red Blood Count 4.22 X10*6/uL (4.60-5.80); Red Cell Distribution Width 13.7 % (11.0-16.0); White Blood Count 8.3 X10*3/uL (4.8-10.8)
[2024-04-14 11:00] LABS: Alanine Aminotransferase 11 U/L (0-40); Albumin Level 4.1 g/dL (3.5-5.0); Alkaline Phosphatase 65 U/L (39-117); Anion Gap 13 (12-20); Aspartate Amino Transferase 16 U/L (5-37); Bilirubin Total 0.7 mg/dL (0.0-1.0); Blood Urea Nitrogen 25 mg/dL (9-16); Calcium 9.3 mg/dL (8.4-10.2); Carbon Dioxide 26 mmol/L (22-29); Chloride 106 mmol/L (96-108); Estimated Glomerular Filt Rate > 60; Glucose Random 159 mg/dL (60-115); Potassium 3.6 mmol/L (3.3-5.1); Sodium 141 mmol/L (135-145); Total Protein 5.8 g/dL (6.5-8.0)
[2024-04-15 23:03] LABS: IgA 5 mg/dL (70-320); IgG 266 mg/dL (600-1540); IgM 6 mg/dL (50-300)
[2024-04-18 17:03] LABS: Kappa Light Chain, Free Serum 1.5 mg/L (3.3-19.4); Kappa/Lambda Lt Ch Free Ratio >1.00 (0.26-1.65); Lambda Light Chain, Free Serum <1.5 mg/L (5.7-26.3)
== END 2024-04-14 06:08 | disposition home or self-care (01) ==
LOC: HO.HMGCLDS 06:07
PROVIDERS: PCP Nurse Practitioner Family; Visit Provider Internal Medicine Medical Oncology
DX: C90.00 Multiple myeloma not having achieved remission (principal)
CPT/HCPCS: 36415; 80053; 82784; 83521; 85025

== ENCOUNTER 2024-04-28 06:05 | Outpatient (REF) | payer MEDICARE, SELFPAY ==
[2024-04-28 10:28] LABS: MANUAL DIFF FLAG NO
[2024-04-28 10:35] LABS: Basophils Percent Auto 0.6 % (0-2); Eosinophils Absolute Auto 0.1 X10*3/uL (0.0-0.4); Eosinophils Percent Auto 1.7 % (0-4); Hematocrit 42.5 % (42.0-52.0); Hemoglobin 14.3 g/dl (14.0-18.0); Imm Gran Abs Auto 0.01 X10*3/uL (0.00-0.03); Imm Gran Pct Auto 0.2 % (0.0-0.4); Lymphocytes Absolute Auto 1.3 X10*3/uL (1.2-4.9); Lymphocytes Percent Auto 23.4 % (20-40); Mean Corpuscular HGB Conc 33.6 g/dl (31.0-36.0); Mean Corpuscular Hemoglobin 33.2 pg (27.0-33.0); Mean Corpuscular Volume 98.6 fL (80.0-98.0); Mean Platelet Volume 11.3 fL (9.4-12.4); Monocytes Absolute Auto 0.5 X10*3/uL (0.1-1.2); Monocytes Percent Auto 8.9 % (2-11); Neutrophils Absolute Auto 3.5 x10*3/uL (2.0-8.3); Neutrophils Percent Auto 65.2 % (45-73); Platelet Count 161 X10*3/uL (160-400); Red Blood Count 4.31 X10*6/uL (4.60-5.80); Red Cell Distribution Width 13.7 % (11.0-16.0); White Blood Count 5.4 X10*3/uL (4.8-10.8)
[2024-04-28 10:44] LABS: Alanine Aminotransferase 15 U/L (0-40); Albumin Level 4.2 g/dL (3.5-5.0); Alkaline Phosphatase 67 U/L (39-117); Anion Gap 10 (12-20); Aspartate Amino Transferase 20 U/L (5-37); Bilirubin Total 0.7 mg/dL (0.0-1.0); Blood Urea Nitrogen 16 mg/dL (9-16); Calcium 8.9 mg/dL (8.4-10.2); Carbon Dioxide 28 mmol/L (22-29); Chloride 107 mmol/L (96-108); Estimated Glomerular Filt Rate > 60; Glucose Random 118 mg/dL (60-115); Potassium 3.5 mmol/L (3.3-5.1); Sodium 141 mmol/L (135-145)
== END 2024-04-28 06:06 | disposition home or self-care (01) ==
LOC: HO.HMGCLDS 06:05
PROVIDERS: PCP Nurse Practitioner Family; Referring Provider Internal Medicine Medical Oncology; Visit Provider Nurse Practitioner Family
DX: C90.00 Multiple myeloma not having achieved remission (principal)
CPT/HCPCS: 36415; 80053; 85025

== ENCOUNTER 2024-05-11 06:06 | Outpatient (REF) | payer MEDICARE, SELFPAY ==
[2024-05-11 10:26] LABS: MANUAL DIFF FLAG NO
[2024-05-11 10:39] LABS: Basophils Percent Auto 0.6 % (0-2); Eosinophils Absolute Auto 0.1 X10*3/uL (0.0-0.4); Eosinophils Percent Auto 1.6 % (0-4); Hematocrit 42.8 % (42.0-52.0); Hemoglobin 14.2 g/dl (14.0-18.0); Imm Gran Abs Auto 0.03 X10*3/uL (0.00-0.03); Imm Gran Pct Auto 0.6 % (0.0-0.4); Lymphocytes Absolute Auto 1.1 X10*3/uL (1.2-4.9); Lymphocytes Percent Auto 21.6 % (20-40); Mean Corpuscular HGB Conc 33.2 g/dl (31.0-36.0); Mean Corpuscular Hemoglobin 33.3 pg (27.0-33.0); Mean Corpuscular Volume 100.2 fL (80.0-98.0); Mean Platelet Volume 11.4 fL (9.4-12.4); Monocytes Absolute Auto 0.5 X10*3/uL (0.1-1.2); Monocytes Percent Auto 10.3 % (2-11); Neutrophils Absolute Auto 3.4 x10*3/uL (2.0-8.3); Neutrophils Percent Auto 65.3 % (45-73); Platelet Count 152 X10*3/uL (160-400); Red Blood Count 4.27 X10*6/uL (4.60-5.80); White Blood Count 5.1 X10*3/uL (4.8-10.8)
[2024-05-11 10:59] LABS: Alanine Aminotransferase 11 U/L (0-40); Albumin Level 4.3 g/dL (3.5-5.0); Alkaline Phosphatase 75 U/L (39-117); Anion Gap 12 (12-20); Aspartate Amino Transferase 16 U/L (5-37); Bilirubin Total 0.7 mg/dL (0.0-1.0); Blood Urea Nitrogen 16 mg/dL (9-16); Calcium 9.8 mg/dL (8.4-10.2); Carbon Dioxide 29 mmol/L (22-29); Chloride 104 mmol/L (96-108); Estimated Glomerular Filt Rate > 60; Glucose Random 122 mg/dL (60-115); Potassium 3.8 mmol/L (3.3-5.1); Sodium 141 mmol/L (135-145); Total Protein 6.1 g/dL (6.5-8.0)
[2024-05-11 11:20] LABS: PSA,Total (Free>4and<10) 2.77 ng/mL (0.00-4.00)
[2024-05-13 11:33] LABS: IgA 5 mg/dL (70-320); IgG 254 mg/dL (600-1540); IgM 5 mg/dL (50-300)
[2024-05-13 15:39] LABS: Kappa Light Chain, Free Serum 1.5 mg/L (3.3-19.4); Kappa/Lambda Lt Ch Free Ratio >1.00 (0.26-1.65); Lambda Light Chain, Free Serum <1.5 mg/L (5.7-26.3)
== END 2024-05-11 06:07 | disposition home or self-care (01) ==
LOC: HO.HMGCLDS 06:06
PROVIDERS: Urology; PCP Nurse Practitioner Family; Visit Provider Internal Medicine Medical Oncology
DX: Z12.5 Encounter for screening for malignant neoplasm of prostate (principal); N40.1 Benign prostatic hyperplasia with lower urinary tract symptoms; N13.8 Other obstructive and reflux uropathy; C90.00 Multiple myeloma not having achieved remission
CPT/HCPCS: 36415; 80053; 82784; 83521; 84153; 85025

== ENCOUNTER 2024-05-17 11:04 | Outpatient (AMB) | payer MEDICARE, SELFPAY ==
--- NOTE | 2024-05-17 11:30 | A.OFFVIS_ITS ---
Intake Visit Reasons: 6M PSA(set) Intake Note: Patient is Present for Follow Up PSA Urology Medication: Finasteride(1/2 tablet 3 times a week) Antibiotic Allergies: None Blood Thinners: Aspirin Allergies No Known Allergies Allergy (Verified 05/17/24 11:31) HPI Comments Details: Hussein is a very pleasant male. He is a patient of Dr. Liao. He is seen for the following urologic conditions - elevated PSA Tolerating medication - 1/2 tab on Thursday, Thursday, Thursday PSA fell appropriately Six-month follow-up lab work Elevated PSA PSA 10/10 9.0, 05/30 6.5, 05/31 2.4, 10/31 5.52, 06/01 2.8 Urinary parameters nocturia times to secondary to multiple myeloma, variable stream, occasional hesitancy Trial finasteride TIFFANIE 2+ prostate soft, base nodule right Family history prostate cancer younger brother Plan - continue finasteride - 1/2 tab Thursday, Thursday, Thursday PFSH Medical History Pneumonia Statin intolerance HTN (hypertension) AAA (abdominal aortic aneurysm) Vitamin D deficiency Subclinical hyperthyroidism Multinodular thyroid Pancytopenia Leukopenia Multiple myeloma Surgical History Hx of hernia repair (07/08/18) History of bone marrow biopsy Hx of tooth extraction History of back surgery Hx of umbilical hernia repair (06/28/13) History of AAA (abdominal aortic aneurysm) repair Family History Father CVD (cardiovascular disease) AAA (abdominal aortic aneurysm) Mother Stomach cancer Social History Household Members: Spouse Housing: House Are you a primary rn wound care to a significant other at home: No Do you presently have visiting nurse or other home services: No Alcohol intake: former Comment: Patient refuses bed alarm Patient Tobacco Use Status: Former Tobacco user Years Smoked: 38 e-Cigarette/Vaping Use: Never Used Second Hand Smoke Exposure: No Special tiesha needs: No Agree to transfusion: Yes Advance Directives Date on File: 01/11/21 service: Yes Current occupational status: employed and retired Cognitive needs: No Hearing needs: No Vision needs: No Review of Systems Const Denies chills and Denies fever(s) Card Reports no additional complaints and Denies syncope Resp Denies cough GI Denies abdominal pain and Denies heartburn Reports as per HPI and Denies change in libido Neuro Denies syncope Psych Denies change in libido Endo Denies change in libido Physical Exam Const General: cooperative, healthy appearing, comfortable and no acute distress Orientation/consciousness: patient oriented x3 HEENT Face and sinus: Yes normal facial exam Mouth: moist mucous membranes Neck Neck: Yes normal visual inspection, Yes full ROM and Yes trachea midline Chest Chest palpation & inspection: normal inspection of the chest Resp Effort & Inspection: normal respiratory effort, able to speak in complete sentences and no respiratory distress GI Inspection: Yes normal to inspection Back/Spine/Pelvis Cervical Spine: normal cervical lordosis Thoracic/Lumbar Spine: thoracic and lumbar spine normal to inspection Skin General skin exam: no rashes or lesions noted Neuro General: patient oriented x3, gait normal, tone normal and moves all extremities Extrem General: Yes normal to inspection and Yes capillary refill normal Assessment & Plan Assessment & Plan (1) BPH w urinary obs/LUTS: Code(s): N40.1 - Benign prostatic hyperplasia with lower urinary tract symptoms; N13.8 - Other obstructive and reflux uropathy Category: Medical (2) Prostate nodule: Code(s): N40.2 - Nodular prostate without lower urinary tract symptoms Category: Medical (3) Elevated PSA: Code(s): R97.20 - Elevated prostate specific antigen [PSA] Category: Medical Plan Six-month follow-up Patient Instructions: Imaging studies, laboratory and physical exam results were discussed and reviewed in detail. No major barriers to patient understanding were identified. An opportunity to ask questions regarding the treatment plan was provided. All questions were answered. The patient expressed understanding and agreement with the above treatment plan. The patient is aware they should contact our office by phone for worsening of their current condition or the appearance of new urologic symptoms. Compliance is encouraged with any medications and followup testing that is ordered. It is a privilege to participate in the urologic care of your patient. If you have any questions or concerns regarding treatment for the above conditions, or other urologic issues, please do not hesitate to contact me. The office telephone contact is [phone]. This note is constructed using voice recognition software. While every effort has been made to ensure accuracy nuclear medicine tech errors may have been included. Yours sincerely, Dr Bar Ralph MD, [facility] - Urology Providers of Expert, Compassionate Care for the Genitourinary System Coding Level of Care Code Est Pt Level 3 (10330) Diagnoses BPH w urinary obs/LUTS N40.1; N13.8 Prostate nodule N40.2 Elevated PSA R97.20
== END 2024-05-17 11:48 | disposition home or self-care (01) ==
PROVIDERS: PCP Nurse Practitioner Family; Visit Provider Urology
DX: N40.1 Benign prostatic hyperplasia with lower urinary tract symptoms (principal); N13.8 Other obstructive and reflux uropathy; N40.2 Nodular prostate without lower urinary tract symptoms; R97.20 Elevated prostate specific antigen [PSA]
CPT/HCPCS: 99213

== ENCOUNTER → 2024-05-17 11:04 | Outpatient (BNVA) | payer MEDICARE, SELFPAY | PROVIDERS: PCP Nurse Practitioner Family; Visit Provider Urology | DX: N40.1 Benign prostatic hyperplasia with lower urinary tract symptoms (principal); N13.8 Other obstructive and reflux uropathy; N40.2 Nodular prostate without lower urinary tract symptoms; R97.20 Elevated prostate specific antigen [PSA] | CPT/HCPCS: 99212 ==

== ENCOUNTER → 2024-05-24 07:59 | Outpatient (REF) | payer MEDICARE, SELFPAY ==
--- NOTE | 2024-05-24 08:01 | CA_ITS ---
Transthoracic Echocardiogram Patient (Last, First, Middle): Hussein Castellano D Gender: Male Date of : 1945 Age: 78 Procedure Date: 05/24/2024 Procedure Type: Transthoracic Echocardiogram Location: OP Height: 172.72 cm Weight: 75.3 kg BSA: 1.89 m2 Heart Rate: 66 bpm BP: 130 / 64 mmHg Stone Splitter: JESUS Referring MD: Екатерина Beach MD Wheel And Axle Inspector: Aris Juan MD Symptoms: Follow-up on ejection fraction Study Quality: Adequate ECG Rhythm: Sinus Conclusions: - Low normal LV ejection fraction 50-55% with grade 1 diastolic dysfunction Findings Left Ventricle Normal left ventricular cavity size. There is normal left ventricular wall thickness. The left ventricular systolic function is low normal. The visually estimated ejection fraction is between 50-55%. Spectral Doppler is indicative of an impaired relaxation filling pattern. E/E prime ratio is <8, consistent with normal filling pressures. Peak GLS is -15.9%, mildly reduced. Prior Study Comparison Changes noted compared to prior study dated: 11/26/2023. LV ejection fraction is marginally reduced although longitudinal strain is similar to last 30 Measurements 2D Linear Measurements IVSd: 0.92 0.6-0.9/0.6-1.0 cm LVIDd: 4.96 3.9-5.3/4.2-5.9 cm LVIDd Index: 2.62 2.4-3.2/2.2-3.1 cm/m2 LVIDs: 2.99 2.0-3.6 cm LVPWd: 0.91 0.7-1.1 cm LV Mass: 198.23 67-162/88-224 g LV Mass Index: 104.88 43-95/49-115 g/m2 LVOT Diam: 2.30 3.0+(-)1.3 cm 2D Systolic Function EF 4C: 50.30 >55% EF 2C: 49.30 >55% EF BiP: 51.00 >55% Mitral Valve MV Pk E: 0.51 MV PK A: 0.75 MV Decel Time: 306.00 E/A: 0.70 E'Lateral: 6.31 E'Medial: 5.33 E/E' Med: 9.50 E/E' Lat: 8.00 PHT: 90.00 MVA PHT: 2.44 Decel [place]: 1.65 LVOT LVOT Pk Khang: 0.74 LVOT Mn Khang: 0.52 LVOT VTI: 0.15 LVOT Pk Grad: 2.00 LVOT Mn Grad: 1.00 LVOT Diam: 2.30 LVOT Area: 4.15 Diastolic Function MV Pk E: 0.51 MV Pk A: 0.75 E/A: 0.70 E'Medial: 5.33 E/E' Med: 9.50 E' Laterial: 6.31 E/E' Lat: 8.00 Tricuspid Valve RA Press: 3.00 Updated in Other Vendor System with Status of Final Aris Juan MD electronically signed on 05/24/2024 4:28:29 PM with status of Final
== END ==
LOC: HO.CARD 07:59
PROVIDERS: PCP Nurse Practitioner Family; Visit Provider Internal Medicine Medical Oncology
DX: C90.00 Multiple myeloma not having achieved remission (principal)
CPT/HCPCS: 93308; 93356

== ENCOUNTER → 2024-05-24 08:01 | Outpatient (BNV) | payer MEDICARE, SELFPAY | PROVIDERS: PCP Nurse Practitioner Family; Visit Provider Internal Medicine Cardiovascular Disease | DX: I51.89 Other ill-defined heart diseases (principal); R93.1 Abnormal findings on diagnostic imaging of heart and coronary circulation | CPT/HCPCS: 93308; 93321; 93325; 93356 ==

== ENCOUNTER 2024-05-26 06:02 | Outpatient (REF) | payer MEDICARE, SELFPAY ==
[2024-05-26 10:10] LABS: MANUAL DIFF FLAG NO
[2024-05-26 10:17] LABS: Basophils Percent Auto 0.6 % (0-2); Eosinophils Absolute Auto 0.1 X10*3/uL (0.0-0.4); Eosinophils Percent Auto 1.8 % (0-4); Hematocrit 42.3 % (42.0-52.0); Hemoglobin 13.9 g/dl (14.0-18.0); Imm Gran Abs Auto 0.02 X10*3/uL (0.00-0.03); Imm Gran Pct Auto 0.4 % (0.0-0.4); Lymphocytes Absolute Auto 1.2 X10*3/uL (1.2-4.9); Lymphocytes Percent Auto 23.4 % (20-40); Mean Corpuscular HGB Conc 32.9 g/dl (31.0-36.0); Mean Corpuscular Volume 100.5 fL (80.0-98.0); Mean Platelet Volume 11.6 fL (9.4-12.4); Monocytes Absolute Auto 0.6 X10*3/uL (0.1-1.2); Monocytes Percent Auto 11.1 % (2-11); Neutrophils Absolute Auto 3.2 x10*3/uL (2.0-8.3); Neutrophils Percent Auto 62.7 % (45-73); Platelet Count 151 X10*3/uL (160-400); Red Blood Count 4.21 X10*6/uL (4.60-5.80); White Blood Count 5.1 X10*3/uL (4.8-10.8)
[2024-05-26 10:37] LABS: Alanine Aminotransferase 10 U/L (0-40); Albumin Level 4.2 g/dL (3.5-5.0); Alkaline Phosphatase 75 U/L (39-117); Anion Gap 13 (12-20); Aspartate Amino Transferase 13 U/L (5-37); Bilirubin Total 0.9 mg/dL (0.0-1.0); Blood Urea Nitrogen 19 mg/dL (9-16); Calcium 9.4 mg/dL (8.4-10.2); Carbon Dioxide 28 mmol/L (22-29); Chloride 105 mmol/L (96-108); Estimated Glomerular Filt Rate > 60; Glucose Random 107 mg/dL (60-115); Potassium 3.5 mmol/L (3.3-5.1); Sodium 142 mmol/L (135-145); Total Protein 5.8 g/dL (6.5-8.0)
== END 2024-05-26 06:03 | disposition home or self-care (01) ==
LOC: HO.HMGCLDS 06:02
PROVIDERS: PCP Nurse Practitioner Family; Visit Provider Internal Medicine Medical Oncology
DX: C90.00 Multiple myeloma not having achieved remission (principal)
CPT/HCPCS: 36415; 80053; 85025

== ENCOUNTER 2024-06-01 07:43 | Outpatient (REF) | payer MEDICARE, SELFPAY ==
--- NOTE | ~2024-06-01 | CT_ITS ---
EXAMINATION: CT ANGIOGRAPHY ABDOMEN AND PELVIS WITHOUT AND WITH CONTRAST CLINICAL INFORMATION: Reason for Exam I71.4 - Abdominal aortic aneurysm, without rupture COMPARISON: CTA abdomen/pelvis 11/25/2021 TECHNIQUE: Initial noncontrast localizing order entry technician images were obtained. A timing bolus at the level of the celiac artery was calculated. Subsequently, arterial phase multidetector volumetric imaging was performed through the abdomen and pelvis following the administration of 80 mL Omnipaque 350 intravenous contrast. No contrast reaction reported. Sagittal and coronal reformatted images were obtained on the technologist workstation. After extensive post-processing on a dedicated 3-D workstation, 3-D reformatted images were uploaded to PACS and reviewed as well. This CT examination was performed using dose optimization techniques as appropriate, variously including the following: *Automated exposure control *Adjustment of mA and/or kV according to patient size (this includes techniques or standardized protocols for targeted exams where dose is matched to indication/reason for exam; i.e. extremities or head) *Use of iterative reconstruction technique DLP: 352 mGy-cm FINDINGS: VASCULAR FINDINGS: Aorta: No hyperdensity within the aortic wall to suggest an intramural hematoma. Fenestrated aortobiiliac stent graft patent without intraluminal thrombosis. Proximal and distal landing zone well apposed. No hyperdensity within the excluded sac to suggest endoleak. 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 No penetrating atheromatous ulcer. Mesenteric Arteries: Celiac artery is patent. Superior mesenteric artery patent. Inferior mesenteric artery occluded. Renal arteries: Single renal arteries bilaterally. Renal arteries are patent and without stenosis or other vascular anomaly. Iliac arteries: The common, external and internal iliac arteries are patent. Proximal femoral vessels are patent. NONVASCULAR: Lung Bases: Panlobular emphysema of the lower lobes. Liver: Stable appearance of innumerable intrahepatic cysts, some of which are peripherally calcified along the right inferior hepatic lobe. Small arterially enhancing focus in segment 2 measuring 1.2 cm, likely a flash filling hemangioma. Gallbladder: Noninflamed. Biliary System: No intrahepatic or extrahepatic biliary dilation. Pancreas: Homogeneous in attenuation. Spleen: Normal in size. Genitourinary: Bilateral kidneys demonstrate symmetric enhancement. Right simple renal cyst measuring 2.2 cm; no follow-up needed. No perinephric fluid collection. No renal calculi. No hydroureteronephrosis. Adrenal Glands: Unremarkable. Reproductive: Prostamegaly. Gastrointestinal: The visualized alimentary tract is normal in course. 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 No evidence of obstruction. Appendix: The appendix is seen in its entirety and is unremarkable. Peritoneum: No pneumoperitoneum. No intra-abdominal fluid collection. Lymph Nodes: No pathologically enlarged abdominal or pelvic lymph nodes. Soft Tissues/Musculoskeletal: Transitional lumbosacral vertebrae. Multilevel degenerative changes of the lumbar spine, worst involving the facets from L3 to S1 bilaterally. Compression deformity of T11. CT/CT angio abdomen pelvis IMPRESSION: VASCULAR FINDINGS: 1. Patent aortobiiliac fenestrated stent graft with mild interval increase in size of the excluded aneurysmal sac, now measuring 42 x 44 mm (previously 39 x 42 mm). 2. Occluded inferior mesenteric artery. No evidence of end organ ischemic changes. NONVASCULAR FINDINGS: No acute pathology of the abdomen or pelvis. Chronic findings above. Fleischner guidelines were followed.
[2024-06-01] MEDS: iohexoL 350 MG/ML 100 ML INFUS..BTL 80 ML IV (08:28)
== END 2024-06-01 07:44 | disposition home or self-care (01) ==
LOC: HO.CT 07:43
PROVIDERS: PCP Nurse Practitioner Family; Visit Provider Surgery Vascular Surgery
DX: I71.41 Pararenal abdominal aortic aneurysm, without rupture (principal)
CPT/HCPCS: 74174; Q9967

== ENCOUNTER 2024-06-09 06:01 | Outpatient (REF) | payer MEDICARE, SELFPAY ==
[2024-06-09 10:06] LABS: MANUAL DIFF FLAG NO
[2024-06-09 10:12] LABS: Basophils Percent Auto 0.3 % (0-2); Eosinophils Absolute Auto 0.1 X10*3/uL (0.0-0.4); Hematocrit 41.7 % (42.0-52.0); Hemoglobin 14.2 g/dl (14.0-18.0); Imm Gran Abs Auto 0.05 X10*3/uL (0.00-0.03); Imm Gran Pct Auto 0.5 % (0.0-0.4); Lymphocytes Absolute Auto 1.1 X10*3/uL (1.2-4.9); Mean Corpuscular HGB Conc 34.1 g/dl (31.0-36.0); Mean Corpuscular Volume 99.8 fL (80.0-98.0); Mean Platelet Volume 11.5 fL (9.4-12.4); Monocytes Absolute Auto 0.7 X10*3/uL (0.1-1.2); Monocytes Percent Auto 6.9 % (2-11); Neutrophils Absolute Auto 8.5 x10*3/uL (2.0-8.3); Neutrophils Percent Auto 81.3 % (45-73); Platelet Count 170 X10*3/uL (160-400); Red Blood Count 4.18 X10*6/uL (4.60-5.80); Red Cell Distribution Width 13.8 % (11.0-16.0); White Blood Count 10.5 X10*3/uL (4.8-10.8)
[2024-06-09 10:21] LABS: Alanine Aminotransferase 11 U/L (0-40); Albumin Level 4.3 g/dL (3.5-5.0); Alkaline Phosphatase 85 U/L (39-117); Anion Gap 12 (12-20); Aspartate Amino Transferase 16 U/L (5-37); Bilirubin Total 0.7 mg/dL (0.0-1.0); Blood Urea Nitrogen 22 mg/dL (9-16); Calcium 9.6 mg/dL (8.4-10.2); Carbon Dioxide 26 mmol/L (22-29); Chloride 106 mmol/L (96-108); Estimated Glomerular Filt Rate > 60; Glucose Random 118 mg/dL (60-115); Potassium 3.6 mmol/L (3.3-5.1); Sodium 140 mmol/L (135-145)
[2024-06-11 02:14] LABS: IgA 5 mg/dL (70-320); IgG 233 mg/dL (600-1540); IgM <5 mg/dL (50-300)
[2024-06-13 12:08] LABS: Kappa Light Chain, Free Serum 3.1 mg/L (3.3-19.4); Lambda Light Chain, Free Serum <1.5 mg/L (5.7-26.3)
== END 2024-06-09 06:02 | disposition home or self-care (01) ==
LOC: HO.HMGCLDS 06:01
PROVIDERS: PCP Nurse Practitioner Family; Visit Provider Internal Medicine Medical Oncology
DX: I71.43 Infrarenal abdominal aortic aneurysm, without rupture (principal); I73.9 Peripheral vascular disease, unspecified; I65.23 Occlusion and stenosis of bilateral carotid arteries; C90.00 Multiple myeloma not having achieved remission
CPT/HCPCS: 36415; 80053; 82784; 83521; 85025; 99212

== ENCOUNTER 2024-06-09 08:58 | Outpatient (AMB) | payer MEDICARE, SELFPAY ==
--- NOTE | 2024-06-09 09:11 | MHC.OFFVIS ---
Vital Signs 06/09/24 09:12 Height 5 ft 8 in Weight 172 lb BMI 26.1 Intake Visit Reasons: follow up s/p AAA 06/01/24 Intake Note: follow up AAA CTA Abd/pelvis 06/01/24, no Abd issues, does have LE weakness and cramping. Pt states he has been busy with chemo over the past few years. Pt struggles to go up the stairs. Left LE worse than Right LE Accompanied by: Self / Same As Patient Allergies No Known Allergies Allergy (Verified 06/09/24 09:16) HPI HPI follow up s/p AAA 06/01/24: Details: Very pleasant 78-year-old gentleman presents for follow-up regarding endovascular aneurysm repair is [facility] [address] [facility] After that appears to be doing fairly well. He does complain of leg cramping when going up stairs but it has been fairly well controlled. He is able to walk a block or 2 with no significant difficulties. When he does experience cramping it is left more so than right. He continues to have ongoing chemotherapy for his multiple myeloma by Dr. Beach. Of note he quit smoking in 2009 just prior to his aneurysm repair. Now presents for surveillance follow-up [facility] Medical History Pneumonia Statin intolerance HTN (hypertension) AAA (abdominal aortic aneurysm) Vitamin D deficiency Subclinical hyperthyroidism Multinodular thyroid Pancytopenia Leukopenia Multiple myeloma Surgical History Hx of hernia repair (07/08/18) History of bone marrow biopsy Hx of tooth extraction History of back surgery Hx of umbilical hernia repair (06/28/13) History of AAA (abdominal aortic aneurysm) repair Family History Father CVD (cardiovascular disease) AAA (abdominal aortic aneurysm) Mother Stomach cancer Social History Household Members: Spouse Housing: House Are you a primary manager progressive care to a significant other at home: No Do you presently have visiting nurse or other home services: No Alcohol intake: former Comment: Patient refuses bed alarm Patient Tobacco Use Status: Former Tobacco user Years Smoked: 38 e-Cigarette/Vaping Use: Never Used Second Hand Smoke Exposure: No Special tiesha needs: No Agree to transfusion: Yes Advance Directives Date on File: 01/11/21 service: Yes Current occupational status: employed and retired Cognitive needs: No Hearing needs: No Vision needs: No Review of Systems Const All systems reviewed & are unremarkable except as noted in HPI and below Reports no additional complaints ENT Reports Normal hearing present Card Denies chest pain, Denies chest pain at rest, Denies chest pain with activity and Denies pedal edema Resp Denies cough GI Denies abdominal pain Musc Denies abnormal gait, Denies muscle cramps and Denies radiating pain into limb Skin/Breast Denies skin ulcer and Denies wounds Neuro Reports Normal hearing present and Denies abnormal gait Psych Reports no additional complaints Physical Exam Vital Signs: BMI result Body Mass Index 26.1 Const General: cooperative, healthy appearing and comfortable Orientation/consciousness: oriented to person, oriented to place and oriented to time HEENT Head: Yes normal to inspection Neck Neck: Yes normal visual inspection Carotids: no bruits Chest Chest palpation & inspection: normal inspection of the chest Resp Effort & Inspection: normal respiratory effort and able to speak in complete sentences Auscultation: clear to auscultation bilaterally, no crackles, no rales, no rhonchi and no wheezes Cardio Other: Bilateral DP signals Rate: regular rate Rhythm: regular rhythm Heart sounds: S1 normal heart sound present and S2 normal heart sound present Bruits: no carotid bruits Peripheral pulses: Peripheral pulses 2+ throughout GI Inspection: Yes normal to inspection Skin Wounds: no wounds Hair: normal Neuro General: oriented to person, oriented to place and oriented to time Cranial nerves: Yes CN's II-XII intact bilaterally and Yes Normal hearing present Cognition (Neuro): normal cognition Motor exam (neuro): 5/5 motor strength present throughout Extrem Other: venous exam: No significant superficial varicosities or spider telangiectasias, minimal edema General: No clubbing, No cyanosis and No edema Psych Appearance: grossly normal Mental Status: mental status grossly normal Speech and movement: Normal speech and movement present Results Reviewed Results Reviewed: CT angiogram dated 06/01/2024 demonstrates stable stent with no evidence of endoleak written report and images were reviewed Assessment & Plan Assessment & Plan (1) AAA (abdominal aortic aneurysm): Comment: 04/2010 - endovascular aortic aneurysm [facility] Code(s): I71.4 - Abdominal aortic aneurysm, without rupture Category: Medical Qualifiers: Abdominal aorta location: infrarenal aorta Presence of rupture: without rupture Qualified Code(s): I71.43 - Infrarenal abdominal aortic aneurysm, without rupture Plan: In short patient has stable aortic endograft on CT. We have discussed the pathophysiology of aortic aneurysms and the risk of ruptures. We have discussed rupture risk based on size. In addition we have discussed conservative measures and risk factor modification for prevention of increase in size of the aneurysm. the patient is scheduled for surveillance follow-up in approximately 1 year. Thank you for allowing us to participate in the care of this patient (2) Peripheral vascular disease: Code(s): I73.9 - Peripheral vascular disease, unspecified Category: Medical Plan: Patient does have an element of peripheral vascular disease. On CT scan on the inferior cuts we do see some calcifications at the common femoral arteries. I have taken the liberty of ordering noninvasive arterial testing. We did discuss routine risk factor modification including the importance of ambulation. He will follow up with us after noninvasive testing. (3) Bilateral carotid artery stenosis: Code(s): I65.23 - Occlusion and stenosis of bilateral carotid arteries Category: Medical Plan: Due to his overall history and questionable bruit. I have taken the liberty of ordering carotid ultrasound as part of surveillance. Thank you for allowing us to assist in his care. Orders: Orders US carotid duplex BI 1 Week I65.23 - Occlusion and stenosis of bilateral carotid arteries US arterial duplex LE BI 1 Week I73.9 - Peripheral vascular disease, unspecified Coding Level of Care Code Est Pt Level 4 (73162) Diagnoses Infrarenal abdominal aortic aneurysm (AAA) without rupture I71.43 Abdominal aorta location: infrarenal aorta Presence of rupture: without rupture Peripheral vascular disease I73.9 Bilateral carotid artery stenosis I65.23
[2024-06-09 09:12] VITALS: BMI 26.1
== END 2024-06-09 10:03 | disposition home or self-care (01) ==
PROVIDERS: PCP Nurse Practitioner Family; Visit Provider Surgery Vascular Surgery
DX: I71.43 Infrarenal abdominal aortic aneurysm, without rupture (principal); I73.9 Peripheral vascular disease, unspecified; I65.23 Occlusion and stenosis of bilateral carotid arteries
CPT/HCPCS: 99214

== ENCOUNTER 2024-06-23 06:02 | Outpatient (REF) | payer MEDICARE, SELFPAY ==
[2024-06-23 10:00] LABS: MANUAL DIFF FLAG NO
[2024-06-23 10:06] LABS: Basophils Percent Auto 0.6 % (0-2); Eosinophils Absolute Auto 0.1 X10*3/uL (0.0-0.4); Eosinophils Percent Auto 1.7 % (0-4); Hematocrit 40.7 % (42.0-52.0); Hemoglobin 13.5 g/dl (14.0-18.0); Imm Gran Abs Auto 0.01 X10*3/uL (0.00-0.03); Imm Gran Pct Auto 0.2 % (0.0-0.4); Lymphocytes Percent Auto 19.7 % (20-40); Mean Corpuscular HGB Conc 33.2 g/dl (31.0-36.0); Mean Corpuscular Hemoglobin 33.6 pg (27.0-33.0); Mean Corpuscular Volume 101.2 fL (80.0-98.0); Mean Platelet Volume 11.2 fL (9.4-12.4); Monocytes Absolute Auto 0.6 X10*3/uL (0.1-1.2); Monocytes Percent Auto 10.6 % (2-11); Neutrophils Absolute Auto 3.5 x10*3/uL (2.0-8.3); Neutrophils Percent Auto 67.2 % (45-73); Platelet Count 166 X10*3/uL (160-400); Red Blood Count 4.02 X10*6/uL (4.60-5.80); Red Cell Distribution Width 14.1 % (11.0-16.0); White Blood Count 5.2 X10*3/uL (4.8-10.8)
[2024-06-23 10:21] LABS: Alanine Aminotransferase 12 U/L (0-40); Albumin Level 4.2 g/dL (3.5-5.0); Alkaline Phosphatase 76 U/L (39-117); Anion Gap 10 (12-20); Aspartate Amino Transferase 15 U/L (5-37); Bilirubin Total 0.7 mg/dL (0.0-1.0); Blood Urea Nitrogen 17 mg/dL (9-16); Calcium 9.4 mg/dL (8.4-10.2); Carbon Dioxide 28 mmol/L (22-29); Chloride 105 mmol/L (96-108); Estimated Glomerular Filt Rate > 60; Glucose Random 103 mg/dL (60-115); Potassium 3.4 mmol/L (3.3-5.1); Sodium 140 mmol/L (135-145); Total Protein 5.8 g/dL (6.5-8.0)
== END 2024-06-23 06:03 | disposition home or self-care (01) ==
LOC: HO.HMGCLDS 06:02
PROVIDERS: PCP Nurse Practitioner Family; Visit Provider Internal Medicine Medical Oncology
DX: C90.00 Multiple myeloma not having achieved remission (principal)
CPT/HCPCS: 36415; 80053; 85025

== ENCOUNTER 2024-06-29 09:37 | Outpatient (REF) | payer MEDICARE, SELFPAY ==
--- NOTE | ~2024-06-29 | US_ITS ---
EXAMINATION: Noninvasive assessment of the bilateral lower extremities with ARTERIAL DUPLEX and ANKLE BRACHIAL INDICES (ABIs). CLINICAL INFORMATION: Peripheral vascular disease TECHNIQUE: Duplex Doppler techniques with waveform analysis and measurement of velocities in the bilateral common femoral, profunda femoris, superficial femoral, popliteal and tibial arteries were performed. Additionally, ankle pulse volume recordings, ankle pressure measurements and ankle brachial indices were obtained of the lower extremity arterial system bilaterally. The study was performed only at rest. COMPARISON: 11/13/2020 FINDINGS: DIRECT DUPLEX DOPPLER FINDINGS: RIGHT LEG: Common femoral artery: 96 cm/s, phasicity: Triphasic Profunda femoris artery: 62 cm/s, phasicity: Triphasic Superficial femoral artery (proximal): 120 cm/s, phasicity: Biphasic. Mild calcified plaque Superficial femoral artery (mid): 81 cm/s, phasicity: Triphasic Superficial femoral artery (distal): 36 cm/s, phasicity: Triphasic Popliteal artery: 52 cm/s, phasicity: Triphasic Posterior tibial artery: 62 cm/s, phasicity: Triphasic Peroneal artery: 45 cm/s, phasicity: Triphasic Anterior tibial artery: 62 cm/s, phasicity: Triphasic Dorsalis pedis artery: 61 cm/s, phasicity:Triphasic LEFT LEG: Common femoral artery: 109 cm/s, phasicity: Biphasic. Moderate irregular calcified plaque Profunda femoris artery: 64 cm/s, phasicity: Triphasic Superficial femoral artery (proximal): 82 cm/s, phasicity: Biphasic Superficial femoral artery (mid): 68 cm/s, phasicity: Triphasic Superficial femoral artery (distal): 24 cm/s, phasicity: Monophasic Popliteal artery: 23 cm/s, phasicity: Monophasic proximally. Popliteal artery is occluded distally. Unchanged Posterior tibial artery: 45 cm/s, phasicity: Monophasic Peroneal artery: 20 cm/s, phasicity: Monophasic Anterior tibial artery: 39 cm/s, phasicity: Monophasic Dorsalis pedis artery: 22 cm/s, phasicity: Monophasic ANKLE-BRACHIAL INDEX: Right: 1.16 , previously 1.07 Left: 0.84, previously 0.84 ANKLE PRESSURES: Right: PT 135, DP 129 Left: PT 97, DP 93 ANKLE PVR WAVEFORMS: Right: Normal Left: Abnormal US/US arterial duplex BI w/ HALLEY IMPRESSION: Right leg: Normal ankle-brachial. Scattered plaque. Patent arterial flow without significant arterial stenosis or occlusion Left leg: Mildly decreased ankle brachial index. 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 No significant change compared to the prior exam HALLEY Reference: - >1.4 = calcified vessels - 0.9 - 1.4 = normal - no significant arterial disease - 0.7 - 0.89 = mild peripheral arterial disease - 0.51 - 0.69 = moderate peripheral arterial disease - d 0.50 = severe peripheral arterial disease - < .30 = critical arterial disease Electronically signed by: Serafin Hope MD 07/05/2024 06:29 PM EDT
--- NOTE | ~2024-06-29 | US_ITS ---
EXAMINATION: US EXTRACRANIAL CAROTID DUPLEX, BILATERAL CLINICAL INFORMATION: Peripheral vascular disease, carotid stenosis COMPARISON: Carotid ultrasound November 17, 2017 TECHNIQUE: Real-time ultrasound and Doppler techniques (integrating B-mode 2-D vascular images, Doppler spectral analysis and color-flow Doppler imaging) were utilized to interrogate the extracranial carotid arteries, the vertebral arteries and proximal subclavian arteries bilaterally. The degree of stenosis is determined by criteria similar to NASCET. FINDINGS: Right Side: 1. There is mild atherosclerotic plaque seen in the bifurcation/proximal ICA region. 2. The common carotid artery PSV proximally is 69 cm/s and distally 57 cm/s. 3. The proximal internal carotid artery velocities are 59 cm/s systolic and 17 cm/s diastolic. 4. The proximal external carotid artery PSV is 79 cm/s. 5. The vertebral artery shows antegrade flow. 6. The subclavian artery waveforms are normal. Left Side: 1. There is mild atherosclerotic plaque seen in the bifurcation/proximal ICA region. 2. The common carotid artery PSV proximally is 58 cm/s and distally 54 cm/s. 3. The proximal internal carotid artery velocities are 33 cm/s systolic and 12 cm/s diastolic. 4. The proximal external carotid artery PSV is 70 cm/s. 5. The vertebral artery shows antegrade flow. 6. The subclavian artery waveforms are normal. US/US carotid duplex BI IMPRESSION: 1. RIGHT: Minimal, non-hemodynamically significant stenosis of the proximal right internal carotid artery corresponding to a 0-49% stenosis by velocity criteria. 2. LEFT: Minimal, non-hemodynamically significant stenosis of the proximal left internal carotid artery corresponding to a 0-49% stenosis by velocity criteria. 3. There is no change in the category severity of disease when compared to the previous study dated November 17, 2017. Electronically signed by: Hernandez Rodgers DO 07/05/2024 12:51 PM EDT
== END 2024-06-29 09:38 | disposition home or self-care (01) ==
LOC: HO.US 09:37
PROVIDERS: PCP Nurse Practitioner Family; Visit Provider Surgery Vascular Surgery
DX: I65.23 Occlusion and stenosis of bilateral carotid arteries (principal); I73.9 Peripheral vascular disease, unspecified
CPT/HCPCS: 93880; 93922; 93925

== ENCOUNTER 2024-07-07 08:53 | Outpatient (REF) | payer MEDICARE, SELFPAY ==
[2024-07-07 09:17] LABS: MANUAL DIFF FLAG NO
[2024-07-07 09:20] LABS: Basophils Percent Auto 0.6 % (0-2); Eosinophils Absolute Auto 0.1 X10*3/uL (0.0-0.4); Eosinophils Percent Auto 0.9 % (0-4); Hemoglobin 14.2 g/dl (14.0-18.0); Imm Gran Abs Auto 0.03 X10*3/uL (0.00-0.03); Imm Gran Pct Auto 0.4 % (0.0-0.4); Lymphocytes Absolute Auto 1.3 X10*3/uL (1.2-4.9); Lymphocytes Percent Auto 19.8 % (20-40); Mean Corpuscular HGB Conc 34.6 g/dl (31.0-36.0); Mean Corpuscular Hemoglobin 34.3 pg (27.0-33.0); Mean Platelet Volume 10.4 fL (9.4-12.4); Monocytes Absolute Auto 0.7 X10*3/uL (0.1-1.2); Monocytes Percent Auto 9.9 % (2-11); Neutrophils Absolute Auto 4.6 x10*3/uL (2.0-8.3); Neutrophils Percent Auto 68.4 % (45-73); Platelet Count 168 X10*3/uL (160-400); Red Blood Count 4.14 X10*6/uL (4.60-5.80); Red Cell Distribution Width 13.3 % (11.0-16.0); White Blood Count 6.8 X10*3/uL (4.8-10.8)
[2024-07-07 09:32] LABS: Alanine Aminotransferase 14 U/L (0-40); Albumin Level 4.4 g/dL (3.5-5.0); Alkaline Phosphatase 74 U/L (39-117); Anion Gap 11 (12-20); Aspartate Amino Transferase 16 U/L (5-37); Bilirubin Total 0.8 mg/dL (0.0-1.0); Blood Urea Nitrogen 19 mg/dL (9-16); Calcium 9.9 mg/dL (8.4-10.2); Carbon Dioxide 28 mmol/L (22-29); Chloride 105 mmol/L (96-108); Estimated Glomerular Filt Rate > 60; Glucose Random 106 mg/dL (60-115); Potassium 3.8 mmol/L (3.3-5.1); Sodium 140 mmol/L (135-145); Total Protein 6.1 g/dL (6.5-8.0)
[2024-07-12 10:08] LABS: Kappa Light Chain, Free Serum 1.4 mg/L (3.3-19.4); Kappa/Lambda Lt Ch Free Ratio >0.93 (0.26-1.65); Lambda Light Chain, Free Serum <1.5 mg/L (5.7-26.3)
[2024-07-14 21:58] LABS: IgA 5 mg/dL (70-320); IgG 255 mg/dL (600-1540); IgM 5 mg/dL (50-300)
[2024-07-15 01:38] LABS: Kappa, Serum 64 mg/dL (176-443); Lambda, Serum 20 mg/dL (91-240)
== END 2024-07-07 08:54 | disposition home or self-care (01) ==
LOC: HO.LAB 08:53
PROVIDERS: PCP Nurse Practitioner Family; Visit Provider Internal Medicine Medical Oncology
DX: C90.00 Multiple myeloma not having achieved remission (principal)
CPT/HCPCS: 36415; 80053; 82784; 83521; 83883; 85025; 86334

== ENCOUNTER 2024-07-20 06:52 | Outpatient (REF) | payer MEDICARE, SELFPAY ==
[2024-07-20 10:09] LABS: MANUAL DIFF FLAG NO
[2024-07-20 10:19] LABS: Basophils Percent Auto 0.7 % (0-2); Eosinophils Absolute Auto 0.1 X10*3/uL (0.0-0.4); Eosinophils Percent Auto 1.4 % (0-4); Hematocrit 42.8 % (42.0-52.0); Hemoglobin 14.1 g/dl (14.0-18.0); Imm Gran Abs Auto 0.02 X10*3/uL (0.00-0.03); Imm Gran Pct Auto 0.4 % (0.0-0.4); Lymphocytes Absolute Auto 1.1 X10*3/uL (1.2-4.9); Lymphocytes Percent Auto 19.6 % (20-40); Mean Corpuscular HGB Conc 32.9 g/dl (31.0-36.0); Mean Corpuscular Hemoglobin 33.6 pg (27.0-33.0); Mean Corpuscular Volume 101.9 fL (80.0-98.0); Mean Platelet Volume 11.3 fL (9.4-12.4); Monocytes Absolute Auto 0.6 X10*3/uL (0.1-1.2); Monocytes Percent Auto 10.4 % (2-11); Neutrophils Absolute Auto 3.8 x10*3/uL (2.0-8.3); Neutrophils Percent Auto 67.5 % (45-73); Platelet Count 162 X10*3/uL (160-400); Red Cell Distribution Width 13.3 % (11.0-16.0); White Blood Count 5.7 X10*3/uL (4.8-10.8)
[2024-07-20 10:34] LABS: Alanine Aminotransferase 11 U/L (0-40); Albumin Level 4.3 g/dL (3.5-5.0); Alkaline Phosphatase 83 U/L (39-117); Anion Gap 13 (12-20); Aspartate Amino Transferase 14 U/L (5-37); Bilirubin Total 0.7 mg/dL (0.0-1.0); Blood Urea Nitrogen 18 mg/dL (9-16); Calcium 9.6 mg/dL (8.4-10.2); Carbon Dioxide 30 mmol/L (22-29); Chloride 103 mmol/L (96-108); Estimated Glomerular Filt Rate > 60; Glucose Random 99 mg/dL (60-115); Potassium 4.2 mmol/L (3.3-5.1); Sodium 142 mmol/L (135-145); Total Protein 6.1 g/dL (6.5-8.0)
== END 2024-07-20 06:53 | disposition home or self-care (01) ==
LOC: HO.HMGCLDS 06:52
PROVIDERS: PCP Nurse Practitioner Family; Visit Provider Internal Medicine Medical Oncology
DX: C90.00 Multiple myeloma not having achieved remission (principal)
CPT/HCPCS: 36415; 80053; 85025

== ENCOUNTER 2024-07-26 14:08 | Outpatient (AMB) | payer MEDICARE, SELFPAY ==
[2024-07-26 14:15] VITALS: BP 110/62; BMI 26.1
--- NOTE | 2024-07-26 14:15 | MHC.OFFVIS ---
Vital Signs 07/26/24 14:15 07/26/24 14:25 Height 5 ft 8 in Weight 172 lb BMI 26.1 BP 110/62 108/61 Blood Pressure Location Rt brachial Lt brachial Position Sitting Sitting Intake Visit Reasons: follow up arterial & Carotid US 07/30/24 Intake Note: follow up Arterial & carotid US 06/29/24. Pt states the last 2-3 weeks the leg pain has decreased. Prior to that the Left LE was worse than the Right LE. He had weakness and cramping. Pt states he does get dizziness/lightheaded at times when he goes from sitting to standing. Accompanied by: Self / Same As Patient Allergies No Known Allergies Allergy (Verified 07/26/24 14:20) HPI HPI follow up arterial & Carotid US 07/30/24: Details: Very pleasant 78-year-old gentleman presents for follow-up evaluation regarding carotid disease and peripheral vascular disease. He had been following us in terms of his aortic aneurysm which had been repaired back [place] [address] Alexandra at [facility]. Been doing fairly well. He has been more active and conscientious about ambulating. He reports that he can walk 2-3 blocks with no significant difficulty. Now presents for follow-up with noninvasive arterial testing along with carotid testing. [facility] Medical History Pneumonia Statin intolerance HTN (hypertension) AAA (abdominal aortic aneurysm) Vitamin D deficiency Subclinical hyperthyroidism Multinodular thyroid Pancytopenia Leukopenia Multiple myeloma Surgical History Hx of hernia repair (07/08/18) History of bone marrow biopsy Hx of tooth extraction History of back surgery Hx of umbilical hernia repair (06/28/13) History of AAA (abdominal aortic aneurysm) repair Family History Father CVD (cardiovascular disease) AAA (abdominal aortic aneurysm) Mother Stomach cancer Social History Household Members: Spouse Housing: House Are you a primary dog day care attendant to a significant other at home: No Do you presently have visiting nurse or other home services: No Alcohol intake: former Comment: Patient refuses bed alarm Patient Tobacco Use Status: Former Tobacco user Years Smoked: 38 e-Cigarette/Vaping Use: Never Used Second Hand Smoke Exposure: No Special tiesha needs: No Agree to transfusion: Yes Advance Directives Date on File: 01/11/21 service: Yes Current occupational status: employed and retired Cognitive needs: No Hearing needs: No Vision needs: No Review of Systems Const All systems reviewed & are unremarkable except as noted in HPI and below Reports no additional complaints ENT Reports Normal hearing present Card Denies chest pain, Denies chest pain at rest, Denies chest pain with activity and Denies pedal edema Resp Denies cough GI Denies abdominal pain Musc Denies abnormal gait, Denies muscle cramps and Denies radiating pain into limb Skin/Breast Denies skin ulcer and Denies wounds Neuro Reports Normal hearing present and Denies abnormal gait Psych Reports no additional complaints Physical Exam Vital Signs: Last Vital Signs BP 108/61 07/26/24 14:25 BMI result Body Mass Index 26.1 Const General: cooperative, healthy appearing and comfortable Orientation/consciousness: oriented to person, oriented to place and oriented to time HEENT Head: Yes normal to inspection Neck Neck: Yes normal visual inspection Carotids: no bruits Chest Chest palpation & inspection: normal inspection of the chest Resp Effort & Inspection: normal respiratory effort and able to speak in complete sentences Auscultation: clear to auscultation bilaterally, no crackles, no rales, no rhonchi and no wheezes Cardio Other: Right side palpable dorsalis pedis pulse left side DP signal. Rate: regular rate Rhythm: regular rhythm Heart sounds: S1 normal heart sound present and S2 normal heart sound present Bruits: no carotid bruits Peripheral pulses: Peripheral pulses 2+ throughout GI Inspection: Yes normal to inspection Skin Wounds: no wounds Hair: normal Neuro General: oriented to person, oriented to place and oriented to time Cranial nerves: Yes CN's II-XII intact bilaterally and Yes Normal hearing present Cognition (Neuro): normal cognition Motor exam (neuro): 5/5 motor strength present throughout Extrem Other: venous exam: No significant superficial varicosities or spider telangiectasias, minimal edema General: No clubbing, No cyanosis and No edema Psych Appearance: grossly normal Mental Status: mental status grossly normal Speech and movement: Normal speech and movement present Results Reviewed Results Reviewed: Noninvasive arterial testing dated 06/29/2024 demonstrates HALLEY on the right of 1.16 and on the left of 0.84. Carotid testing dated 06/29/2024 demonstrates bilateral 0-49% stenosis. Written report and images were reviewed. Assessment & Plan Assessment & Plan (1) AAA (abdominal aortic aneurysm): Comment: 04/2010 - endovascular aortic aneurysm repair by Dr. Alexandra at [facility] Code(s): I71.4 - Abdominal aortic aneurysm, without rupture Category: Medical Qualifiers: Abdominal aorta location: infrarenal aorta Presence of rupture: without rupture Qualified Code(s): I71.43 - Infrarenal abdominal aortic aneurysm, without rupture Plan: We will get surveillance follow-up in 1 year. Routine risk factor modification discussed. We will order CT scan in approximately 1 year's time. Please note a longitudinal relationship has been created with the patient and we have been following and surveillance this chronic condition. (2) Bilateral carotid artery stenosis: Code(s): I65.23 - Occlusion and stenosis of bilateral carotid arteries Category: Medical Plan: Minimal disease bilaterally. We did discuss routine risk factor modification. At the current time it does appear stable and would not do repeat surveillance regarding this. (3) Peripheral vascular disease: Code(s): I73.9 - Peripheral vascular disease, unspecified Category: Medical Plan Stable at the current time. No intervention indicated. We will continue to follow him for his aortic disease. Orders: Orders Blood Urea Nitrogen 1 Year I71.43 - Infrarenal abdominal aortic aneurysm, without rupture Creatinine 1 Year I71.43 - Infrarenal abdominal aortic aneurysm, without rupture CT angio abdomen pelvis 1 Year I71.43 - Infrarenal abdominal aortic aneurysm, without rupture Coding Level of Care Code Est Pt Level 4 (05752) Complex EM visit Add On G2211 Diagnoses Infrarenal abdominal aortic aneurysm (AAA) without rupture I71.43 Abdominal aorta location: infrarenal aorta Presence of rupture: without rupture Bilateral carotid artery stenosis I65.23 Peripheral vascular disease I73.9
[2024-07-26 14:25] VITALS: BP 108/61
== END 2024-07-26 14:41 | disposition home or self-care (01) ==
PROVIDERS: PCP Nurse Practitioner Family; Visit Provider Surgery Vascular Surgery
DX: I71.43 Infrarenal abdominal aortic aneurysm, without rupture (principal); I65.23 Occlusion and stenosis of bilateral carotid arteries; I73.9 Peripheral vascular disease, unspecified
CPT/HCPCS: 99214; G2211

== ENCOUNTER → 2024-07-26 14:08 | Outpatient (BNVA) | payer MEDICARE, SELFPAY | PROVIDERS: PCP Nurse Practitioner Family; Visit Provider Surgery Vascular Surgery | DX: I73.9 Peripheral vascular disease, unspecified (principal); I71.43 Infrarenal abdominal aortic aneurysm, without rupture; I65.23 Occlusion and stenosis of bilateral carotid arteries | CPT/HCPCS: 99212 ==

== ENCOUNTER 2024-07-29 07:00 | Outpatient (RCR) | payer MEDICARE, SELFPAY ==
--- NOTE | 2024-07-06 07:54 | MHC.PT.EP ---
[facility] [place] Office [place] Office [place] [facility] [address] Thomas Hamm [address] [phone] F: [phone] F: [phone] F: [phone] F: [phone] Physical Therapy Plan of Care Date of Evaluation: 07/06/24 Date of Surgery: Diagnosis: bilateral shoulder pain Assessment: Patient is a 78 year old R handed male who presents with s/s consistent with bilateral shoulder pain. He notes the left side is worse and that is what he wants to work on. 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 Patient past medical history includes multiple myeloma, back surgery, hernia repair and b/l shoulder pain. Current impairments include pain, posture, ROM, strength, activity tolerance and functional mobility. Functional limitations include decreased ability to dress, reach, lift, carry, push, pull, and sleep. Patient is motivated with good rehab potential. Skilled PT will address impairments and functional limitations in order to achieve goals. Frequency and Duration: The patient will be seen 2x/week for 5 weeks Short Term Goals: I with HEP - 2 weeks AROM flexion 120 and pain free - 3 weeks ER AROM 60 and pain free - 3 weeks Luggage Maker Goals: Able to put 2# into cupboard above head pain free - 5 weeks AROM WNL and full - 5 weeks SPADI 50/130 or better -5 weeks Strength 4+/5 grossly - 5 weeks Treatment Plan: Modalities to reduce pain, spasms and effusion. Manual therapy to restore motion and function. Therapeutic exercise to improve strength and flexibility. Neuromuscular re-education for posture and balance. Therapeutic activities to return to functional activities of daily living. Electronically signed by: Jeff Engle, PT Please sign and return to therapist. Thank you for your referral.
--- NOTE | 2024-08-18 13:08 | MHC.PT.DC ---
[facility] [place] Office [place] Office [place] Office [address] Thomas Hamm [address] [phone] F: [phone] F: [phone] F: [phone] F: [phone] Physical Therapy Discharge Report Diagnosis: bilateral shoulder pain Date of Surgery: Date of Evaluation: 07/06/24 Date of Discharge: 07/29/24 Treatments to Date: 4 Cancellations to Date: No Shows to Date: Discharge Status: Independent with HEP Patient Elected to Stop Discharge Summary: Pt with modest improvement mostly on ROM. He has and HEP and will d/c to HEP. 07/29/24: pt progressing with ROM. strength progression has been slow but pt compliant. still has painful arc with flexion/scaption. 07/20/24: pt progressed with strength. does have discomfort on L with ER past 15 at [facility]. continue to progress as tolerated. 07/15/24: soreness noted with HEP. we spent significant time on mechanics and pain free edu. Patient is a 78 year old R handed male who presents with s/s consistent with bilateral shoulder pain. He notes the left side is worse and that is what he wants to work on. 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 Patient past medical history includes multiple myeloma, back surgery, hernia repair and b/l shoulder pain. Current impairments include pain, posture, ROM, strength, activity tolerance and functional mobility. Functional limitations include decreased ability to dress, reach, lift, carry, push, pull, and sleep. Patient is motivated with good rehab potential. Skilled PT will address impairments and functional limitations in order to achieve goals. Electronically signed by: Jeff Engle, PT Please sign and return to therapist. Thank you for your referral.
== END 2024-08-18 13:09 | disposition home or self-care (01) ==
LOC: HO.PTCHIC 07:00
PROVIDERS: PCP Nurse Practitioner Family; Visit Provider Internal Medicine Medical Oncology
DX: M25.511 Pain in right shoulder (principal)
CPT/HCPCS: 97110; 97163

== ENCOUNTER 2024-08-04 06:03 | Outpatient (REF) | payer MEDICARE, SELFPAY ==
[2024-08-04 10:05] LABS: MANUAL DIFF FLAG NO
[2024-08-04 10:09] LABS: Basophils Absolute Auto 0.1 X10*3/uL (0.0-0.2); Basophils Percent Auto 0.8 % (0-2); Eosinophils Absolute Auto 0.1 X10*3/uL (0.0-0.4); Eosinophils Percent Auto 1.6 % (0-4); Hematocrit 42.5 % (42.0-52.0); Hemoglobin 14.1 g/dl (14.0-18.0); Imm Gran Abs Auto 0.02 X10*3/uL (0.00-0.03); Imm Gran Pct Auto 0.3 % (0.0-0.4); Lymphocytes Percent Auto 16.1 % (20-40); Mean Corpuscular HGB Conc 33.2 g/dl (31.0-36.0); Mean Corpuscular Hemoglobin 33.8 pg (27.0-33.0); Mean Corpuscular Volume 101.9 fL (80.0-98.0); Mean Platelet Volume 11.3 fL (9.4-12.4); Monocytes Absolute Auto 0.5 X10*3/uL (0.1-1.2); Monocytes Percent Auto 8.1 % (2-11); Neutrophils Absolute Auto 4.5 x10*3/uL (2.0-8.3); Neutrophils Percent Auto 73.1 % (45-73); Platelet Count 179 X10*3/uL (160-400); Red Blood Count 4.17 X10*6/uL (4.60-5.80); Red Cell Distribution Width 13.1 % (11.0-16.0); White Blood Count 6.2 X10*3/uL (4.8-10.8)
[2024-08-04 10:20] LABS: Alanine Aminotransferase 13 U/L (0-40); Albumin Level 4.2 g/dL (3.5-5.0); Alkaline Phosphatase 87 U/L (39-117); Anion Gap 10 (12-20); Aspartate Amino Transferase 15 U/L (5-37); Bilirubin Total 0.6 mg/dL (0.0-1.0); Blood Urea Nitrogen 19 mg/dL (9-16); Calcium 9.6 mg/dL (8.4-10.2); Carbon Dioxide 30 mmol/L (22-29); Chloride 104 mmol/L (96-108); Estimated Glomerular Filt Rate > 60; Glucose Random 116 mg/dL (60-115); Potassium 3.4 mmol/L (3.3-5.1); Sodium 141 mmol/L (135-145)
[2024-08-05 14:27] LABS: IgA 5 mg/dL (70-320); IgG 242 mg/dL (600-1540); IgM 5 mg/dL (50-300)
[2024-08-10 09:54] LABS: Kappa Light Chain, Free Serum 1.6 mg/L (3.3-19.4); Kappa/Lambda Lt Ch Free Ratio >1.07 (0.26-1.65); Lambda Light Chain, Free Serum <1.5 mg/L (5.7-26.3)
== END 2024-08-04 06:04 | disposition home or self-care (01) ==
LOC: HO.HMGCLDS 06:03
PROVIDERS: PCP Nurse Practitioner Family; Visit Provider Internal Medicine Medical Oncology
DX: C90.00 Multiple myeloma not having achieved remission (principal)
CPT/HCPCS: 36415; 80053; 82784; 83521; 85025

== ENCOUNTER → 2024-08-09 13:57 | Outpatient (REF) | payer MEDICARE, SELFPAY ==
--- NOTE | 2024-08-09 13:59 | CA_ITS ---
Transthoracic Echocardiogram Patient (Last, First, Middle): Hussein Castellano D Gender: Male Date of : 1945 Age: 78 Procedure Date: 08/09/2024 Procedure Type: Transthoracic Echocardiogram Location: OP Height: 172.72 cm Weight: 78.02 kg BSA: 1.92 m2 Heart Rate: bpm BP: 140 / 78 mmHg [employer]: TO Referring MD: Екатерина Beach MD Symptoms: On carfilzomib. Lowish EF. Study Quality: Adequate ECG Rhythm: Sinus with possibly PACs. Conclusions: - The left ventricular systolic function is low normal. The visually estimated ejection fraction is between 50-55%. - There is mild aortic valve stenosis. - There is mild dilatation of the ascending aorta measuring 4.20 cm. Findings Left Ventricle Normal left ventricular cavity size. The left ventricular systolic function is low normal. The visually estimated ejection fraction is between 50-55%. There is no evidence of regional wall motion abnormalities. Evidence suggests grade I (mild) diastolic dysfunction. There is mild septal asymmetric hypertrophy. Right Ventricle Mildly increased right ventricular cavity size. There is normal right ventricular systolic function. Atria The left atrium is mildly dilated. The right atrium is moderately dilated. Aortic Valve There is mild calcification of the aortic valve. There is mild aortic valve stenosis. The peak aortic velocity is 2.51 m/s with a calculated peak gradient of 25 mmHg. The mean gradient is 14 mmHg. The aortic valve area is 1.48 cm2. There is trace (trivial) aortic valve regurgitation. Mitral Valve There is mild mitral annular calcification. There is no mitral valve regurgitation. There is no mitral valve stenosis. Pulmonic Valve The pulmonic valve is likely normal. Tricuspid Valve There is trace tricuspid valve regurgitation. There is no evidence of pulmonary hypertension. Great Vessels There is mild dilatation of the ascending aorta measuring 4.20 cm. Venous The inferior vena cava is normal in size and collapses greater than 50% with inspiration. Pericardium/Pleural There is no evidence of pericardial effusion. Prior Study Comparison No significant change compared to prior study dated: 05/24/2024. Measurements 2D Linear Measurements IVSd: 1.17 0.6-0.9/0.6-1.0 cm LVIDd: 5.13 3.9-5.3/4.2-5.9 cm LVIDd Index: 2.67 2.4-3.2/2.2-3.1 cm/m2 LVIDs: 3.24 2.0-3.6 cm LVPWd: 0.95 0.7-1.1 cm LA Diam: 4.00 2.7-3.8/3.0-4.0 cm LAIDs Index: 2.08 1.5-2.3 cm/m2 LV Mass: 255.42 67-162/88-224 g LV Mass Index: 133.03 43-95/49-115 g/m2 LVOT Diam: 2.40 3.0+(-)1.3 cm 2D Systolic Function EF 4C: 48.00 >55% EF 2C: 45.00 >55% EF BiP: 47.30 >55% Mitral Valve MV VTI: 0.34 MV Pk Khang: 0.87 MV Mn Khang: 0.53 MV Pk Grad: 3.00 MV Mn Grad: 2.00 MV Pk E: 0.42 MV PK A: 0.53 MV Decel Time: 256.00 E/A: 0.80 E'Lateral: 4.46 E'Medial: 3.37 E/E' Med: 12.50 E/E' Lat: 9.40 PHT: 75.00 MVA PHT: 2.93 MVA Continuity: 2.30 Decel Stephenson: 1.64 Aortic Valve AoV Pk Khang: 2.51 AoV Mn Khang: 1.82 AoV VTI: 0.52 AoV Pk Grad: 25.00 Aov Mn Grad: 14.00 JULIAN Cont.VTI: 1.48 LVOT LVOT Pk Khang: 0.77 LVOT Mn Khang: 0.54 LVOT VTI: 0.17 LVOT Pk Grad: 2.00 LVOT Mn Grad: 1.00 LVOT Diam: 2.40 LVOT Area: 4.52 Diastolic Function MV Pk E: 0.42 MV Pk A: 0.53 E/A: 0.80 E'Medial: 3.37 E/E' Med: 12.50 E' Laterial: 4.46 E/E' Lat: 9.40 Right Ventricle TAPSE (mm): 23.90 TVS' Khang: 11.90 Tricuspid Valve TR Pk Khang: 1.76 TR Pk Grad: 12.00 Great Vessels Aorta Sinus of Valsalva: 3.80 2.0-3.[address] Ridge: 2.73 1.7-3.4 cm Ao Asc: 4.20 2.1-3.4 cm Updated in Other Vendor System with Status of Final Fer Allen MD electronically signed on 08/09/2024 5:02:56 PM with status of Final
== END ==
LOC: HO.CARD 13:57
PROVIDERS: PCP Nurse Practitioner Family; Visit Provider Internal Medicine Medical Oncology
DX: C90.00 Multiple myeloma not having achieved remission (principal); Z79.899 Other long term (current) drug therapy
CPT/HCPCS: 93306

== ENCOUNTER → 2024-08-09 13:59 | Outpatient (BNV) | payer MEDICARE, SELFPAY | PROVIDERS: PCP Nurse Practitioner Family; Visit Provider Internal Medicine | DX: I35.0 Nonrheumatic aortic (valve) stenosis (principal); I34.81 Nonrheumatic mitral (valve) annulus calcification; I42.2 Other hypertrophic cardiomyopathy | CPT/HCPCS: 93306 ==

== ENCOUNTER 2024-08-18 06:03 | Outpatient (REF) | payer MEDICARE, SELFPAY ==
[2024-08-18 10:06] LABS: MANUAL DIFF FLAG NO
[2024-08-18 10:11] LABS: Basophils Absolute Auto 0.1 X10*3/uL (0.0-0.2); Eosinophils Absolute Auto 0.1 X10*3/uL (0.0-0.4); Eosinophils Percent Auto 1.8 % (0-4); Hematocrit 43.6 % (42.0-52.0); Hemoglobin 14.5 g/dl (14.0-18.0); Imm Gran Abs Auto 0.02 X10*3/uL (0.00-0.03); Imm Gran Pct Auto 0.4 % (0.0-0.4); Lymphocytes Absolute Auto 1.2 X10*3/uL (1.2-4.9); Mean Corpuscular HGB Conc 33.3 g/dl (31.0-36.0); Mean Corpuscular Hemoglobin 33.6 pg (27.0-33.0); Mean Corpuscular Volume 100.9 fL (80.0-98.0); Mean Platelet Volume 11.3 fL (9.4-12.4); Monocytes Absolute Auto 0.5 X10*3/uL (0.1-1.2); Monocytes Percent Auto 10.6 % (2-11); Neutrophils Absolute Auto 3.2 x10*3/uL (2.0-8.3); Neutrophils Percent Auto 63.2 % (45-73); Platelet Count 187 X10*3/uL (160-400); Red Blood Count 4.32 X10*6/uL (4.60-5.80); Red Cell Distribution Width 13.2 % (11.0-16.0)
[2024-08-18 11:20] LABS: Alanine Aminotransferase 11 U/L (0-40); Albumin Level 4.3 g/dL (3.5-5.0); Alkaline Phosphatase 76 U/L (39-117); Anion Gap 10 (12-20); Aspartate Amino Transferase 15 U/L (5-37); Bilirubin Total 0.8 mg/dL (0.0-1.0); Blood Urea Nitrogen 21 mg/dL (9-16); Calcium 9.7 mg/dL (8.4-10.2); Carbon Dioxide 31 mmol/L (22-29); Chloride 103 mmol/L (96-108); Estimated Glomerular Filt Rate > 60; Glucose Random 117 mg/dL (60-115); Potassium 3.4 mmol/L (3.3-5.1); Sodium 141 mmol/L (135-145)
== END 2024-08-18 06:04 | disposition home or self-care (01) ==
LOC: HO.HMGCLDS 06:03
PROVIDERS: PCP Nurse Practitioner Family; Visit Provider Internal Medicine Medical Oncology
DX: C90.00 Multiple myeloma not having achieved remission (principal)
CPT/HCPCS: 36415; 80053; 85025

== ENCOUNTER 2024-08-25 15:46 | Outpatient (REF) | payer MEDICARE, SELFPAY | END 2024-08-25 15:47 | disposition home or self-care (01) | LOC: HO.HOSX 15:46 | DX: Z13.89 Encounter for screening for other disorder (principal) ==

== ENCOUNTER 2024-08-26 13:21 | Outpatient (AMB) | payer MEDICARE, SELFPAY ==
[2024-08-26 13:37] VITALS: BMI 24.6
--- NOTE | 2024-08-26 13:37 | MHC.OFFVIS ---
Vital Signs 08/26/24 13:37 Height 5 ft 8 in Weight 162 lb BMI 24.6 Intake Visit Reasons: CUT OFF MAN- B/L hand arthritis Intake Note: Hussein is a 78 year old right hand dominant male who presents today as a new patient with complaints of bilateral hand pain. Patient states that he has had pain for over ten years but it has worsened in the last few months. Allergies No Known Allergies Allergy (Verified 08/26/24 13:41) HPI HPI CUT OFF MAN- B/L hand arthritis: Details: Patient is a 78-year-old male who presents to the office for evaluation of bilateral hand arthritis. The patient reports that he 1st noticed pain in his hands many years ago, but over the last couple of years has noticed significant nodules developing joints of the fingers of his bilateral hands. However, the patient reports that he does not experience significant discomfort from this arthritis, simply want to be evaluated to see if there were any treatment options available. Patient does report that he has had several basal joint injections, to no effect Patient reports that the primary source of his discomfort at this time is his right shoulder, and he would like to make an appointment for evaluation of this pain as well. Patient denies any numbness or tingling in bilateral hands. No other acute complaints or concerns at this time. COUNTS INCLUDE 234 BEDS AT THE [facility] Medical History Pneumonia Statin intolerance HTN (hypertension) AAA (abdominal aortic aneurysm) Vitamin D deficiency Subclinical hyperthyroidism Multinodular thyroid Pancytopenia Leukopenia Multiple myeloma Surgical History Hx of hernia repair (07/08/18) History of bone marrow biopsy Hx of tooth extraction History of back surgery Hx of umbilical hernia repair (06/28/13) History of AAA (abdominal aortic aneurysm) repair Family History Father CVD (cardiovascular disease) AAA (abdominal aortic aneurysm) Mother Stomach cancer Social History Household Members: Spouse Housing: House Are you a primary direct care provider to a significant other at home: No Do you presently have visiting nurse or other home services: No Alcohol intake: former Comment: Patient refuses bed alarm Patient Tobacco Use Status: Former Tobacco user Years Smoked: 38 e-Cigarette/Vaping Use: Never Used Second Hand Smoke Exposure: No Special tiesha needs: No Agree to transfusion: Yes Advance Directives Date on File: 01/11/21 service: Yes Current occupational status: employed and retired Cognitive needs: No Hearing needs: No Vision needs: No Review of Systems Const All systems reviewed & are unremarkable except as noted in HPI and below Physical Exam Vital Signs: BMI result Body Mass Index 24.6 Extrem Other: Patient is alert, oriented, and in no acute distress. Neuro: Normal sensation of the tips of all digits of bilateral hands at this time Vascular: Cap refill brisk Pain: Patient reports no tenderness to palpation to any of the digits of bilateral hands at this time ROM: Patient is able to make a closed fist and extend all digits of bilateral hands fully, but reports some very mild discomfort when doing so Skin: No lacerations or abrasions. General: No ecchymosis, erythema, or evidence of infection. Diffuse Heberden's nodes noted throughout digits of bilateral hands Psych: Appears grossly normal Affect normal Attitude cooperative Results Reviewed Results Reviewed: X-rays obtained in the office today and independently reviewed by me, Gilberto Combs PA-C, demonstrate diffuse moderate to severe arthritic changes of the joints of bilateral fingers. Mild basal joint arthritis also noted of bilateral thumbs. No fracture or acute bony abnormality noted. Assessment & Plan Assessment & Plan (1) Osteoarthritis of hands, bilateral: Code(s): M19.041 - Primary osteoarthritis, right hand; M19.042 - Primary osteoarthritis, left hand Category: Medical Plan 1. Bilateral hand osteoarthritis At this time, patient is informed that the only joint we could inject into his the basal joint Patient was uninterested in any basal joint injection at this time, as he has had them previously and they were not effective Patient states that he would like to continue with conservative pain management measures as he is doing at home, as he feels it is or doing a good job of controlling his pain and he does not experience much discomfort at baseline Patient was further educated on other pain management measures he could be utilized, and the patient expresses understanding of these Patient will follow-up as needed with any acute concerns Orders: Orders XR hand RT min 3V 08/26/24 M79.641 - Pain in right hand XR hand LT min 3V 08/26/24 M79.642 - Pain in left hand Coding Level of Care Code New Pt Level 3 (43249) Diagnoses Osteoarthritis of hands, bilateral M19.041; M19.042
== END 2024-08-26 14:02 | disposition home or self-care (01) ==
LOC: HO.HOS 13:21
PROVIDERS: PCP Nurse Practitioner Family
DX: M19.041 Primary osteoarthritis, right hand (principal); M19.042 Primary osteoarthritis, left hand
CPT/HCPCS: 99203

== ENCOUNTER 2024-09-01 06:04 | Outpatient (REF) | payer MEDICARE, SELFPAY ==
[2024-09-01 10:02] LABS: MANUAL DIFF FLAG NO
[2024-09-01 10:05] LABS: Basophils Percent Auto 0.5 % (0-2); Eosinophils Absolute Auto 0.1 X10*3/uL (0.0-0.4); Eosinophils Percent Auto 1.3 % (0-4); Hematocrit 41.8 % (42.0-52.0); Imm Gran Abs Auto 0.03 X10*3/uL (0.00-0.03); Imm Gran Pct Auto 0.5 % (0.0-0.4); Lymphocytes Percent Auto 16.6 % (20-40); Mean Corpuscular HGB Conc 33.5 g/dl (31.0-36.0); Mean Corpuscular Hemoglobin 33.1 pg (27.0-33.0); Mean Corpuscular Volume 98.8 fL (80.0-98.0); Mean Platelet Volume 11.1 fL (9.4-12.4); Monocytes Absolute Auto 0.6 X10*3/uL (0.1-1.2); Neutrophils Absolute Auto 4.5 x10*3/uL (2.0-8.3); Neutrophils Percent Auto 72.1 % (45-73); Platelet Count 163 X10*3/uL (160-400); Red Blood Count 4.23 X10*6/uL (4.60-5.80); Red Cell Distribution Width 13.3 % (11.0-16.0); White Blood Count 6.3 X10*3/uL (4.8-10.8)
[2024-09-01 10:15] LABS: Alanine Aminotransferase 19 U/L (0-40); Albumin Level 4.2 g/dL (3.5-5.0); Alkaline Phosphatase 66 U/L (39-117); Anion Gap 11 (12-20); Aspartate Amino Transferase 25 U/L (5-37); Bilirubin Total 0.9 mg/dL (0.0-1.0); Blood Urea Nitrogen 16 mg/dL (9-16); Calcium 9.5 mg/dL (8.4-10.2); Carbon Dioxide 31 mmol/L (22-29); Chloride 103 mmol/L (96-108); Estimated Glomerular Filt Rate > 60; Glucose Random 129 mg/dL (60-115); Potassium 3.7 mmol/L (3.3-5.1); Sodium 141 mmol/L (135-145); Total Protein 5.9 g/dL (6.5-8.0)
[2024-09-01 10:36] LABS: Prostate Specific Antigen 3.08 ng/mL (<0.05-4.0)
[2024-09-02 17:03] LABS: IgA 5 mg/dL (70-320); IgG 259 mg/dL (600-1540); IgM <5 mg/dL (50-300)
[2024-09-05 15:32] LABS: Kappa Light Chain, Free Serum 1.5 mg/L (3.3-19.4); Lambda Light Chain, Free Serum 1.5 mg/L (5.7-26.3)
== END 2024-09-01 06:05 | disposition home or self-care (01) ==
LOC: HO.HMGCLDS 06:04
PROVIDERS: PCP Nurse Practitioner Family; Visit Provider Internal Medicine Medical Oncology
DX: C90.00 Multiple myeloma not having achieved remission (principal); Z12.5 Encounter for screening for malignant neoplasm of prostate
CPT/HCPCS: 36415; 80053; 82784; 83521; 84153; 85025

== ENCOUNTER 2024-09-09 08:22 | Outpatient (AMB) | payer MEDICARE, SELFPAY ==
--- NOTE | 2024-09-09 08:22 | A.OFFVIS_ITS ---
Vital Signs 09/09/24 08:23 Height 5 ft 8 in Weight 164 lb 7 oz BMI 25.0 Intake Visit Reasons: Newprob-Left shoulder pain Intake Note: Hussein is a 78 year old right hand dominant male who presents today for a new problem with complaints of left shoulder pain that began about 3 months ago. Patient states it is painful to elevate the arm above his head or stretch it out to his back. He describes the pain as a shooting pain. He states the shotting pain is triggered when she pushes or elevates the arm. Denies injuries or surgeries to the left shoulder. He has been taking Tylenol at night for pain, with relief. He has also tried PT for 3 weeks with no relief of symptoms. Allergies No Known Allergies Allergy (Verified 08/26/24 13:41) HPI HPI Newprob-Left shoulder pain: Details: Patient is a 78-year-old male who presents for evaluation of left shoulder pain, ongoing for ?several months?. Patient states that there was no particular incident or injury that began this pain, however he states that has remained consistent over that time. The patient states that this pain improves with rest and is aggravated by activity. The patient states that he did go to physical therapy for 3 weeks for this issue, and felt he did notice some improvement in the 3rd week, but states that he ?got lazy with his exercises? and he noticed regression back to the baseline prior to beginning PT. Patient denies any numbness or tingling in the left upper extremity. No other acute complaints or concerns at this time. [facility] Medical History Pneumonia Statin intolerance HTN (hypertension) AAA (abdominal aortic aneurysm) Vitamin D deficiency Subclinical hyperthyroidism Multinodular thyroid Pancytopenia Leukopenia Multiple myeloma Surgical History Hx of hernia repair (07/08/18) History of bone marrow biopsy Hx of tooth extraction History of back surgery Hx of umbilical hernia repair (06/28/13) History of AAA (abdominal aortic aneurysm) repair Family History Father CVD (cardiovascular disease) AAA (abdominal aortic aneurysm) Mother Stomach cancer Social History Household Members: Spouse Housing: House Are you a primary adult live in caregiver to a significant other at home: No Do you presently have visiting nurse or other home services: No Alcohol intake: former Comment: Patient refuses bed alarm Patient Tobacco Use Status: Former Tobacco user Years Smoked: 38 e-Cigarette/Vaping Use: Never Used Second Hand Smoke Exposure: No Special tiesha needs: No Agree to transfusion: Yes Advance Directives Date on File: 01/11/21 service: Yes Current occupational status: employed and retired Cognitive needs: No Hearing needs: No Vision needs: No Physical Exam Vital Signs: BMI result Body Mass Index 25.0 Extrem Other: Patient has left shoulder normal to inspection No erythema, edema, ecchymosis noted, No lacerations, abrasions, open areas, no evidence of infection Patient reports tenderness to palpation over the insertions of the proximal triceps tendons, and the proximal muscle bellies of the triceps No tenderness to palpation of the acromion, clavicle, AC joint, anterior posterior shoulder joint, or elsewhere in the left shoulder Patient is able to forward flex the shoulder to 90 degrees without difficulty Patient is able to externally rotate the shoulder to approximately 60-70 degrees without difficulty Empty can strength 5/5 bilaterally Belly press strength 5/5 bilaterally, no pain Patient was unable to tolerate lift-off Negative Thomson Distal sensation intact Capillary refill brisk Results Reviewed Results Reviewed: X-rays obtained in the office today and independently reviewed by me, Gilberto Combs PA-C, demonstrate [id number] degenerative changes of the left glenohumeral joint, left AC joint, and a prominent osteophyte forming off the inferior aspect of the acromion. No fracture or acute bony abnormality noted Assessment & Plan Assessment & Plan (1) Tendinitis of left triceps: Code(s): M77.8 - Other enthesopathies, not elsewhere classified Category: Medical Plan 1. Triceps tendinitis of left shoulder Patient is educated about this condition Patient is educated about the treatment options available, namely physical therapy However, the patient states that he would prefer to just get more consistent with the exercises previously given to him, as he felt these were improving his condition significantly when he was doing them consistently Patient informed he should be doing these exercises at least once per day to be able to get adequate relief from them Patient states understanding of this If patient continues to experience symptoms after 4-6 weeks of consistently doing his exercises, he should call for re-evaluation, sooner with any acute concerns Orders: Orders XR shoulder LT min 2V Today M25.512 - Pain in left shoulder Coding Level of Care Code Est Pt Level 3 (79591) Diagnoses Tendinitis of left triceps M77.8
[2024-09-09 08:23] VITALS: BMI 25.0
== END 2024-09-09 08:55 | disposition home or self-care (01) ==
LOC: HO.HOS 08:22
PROVIDERS: PCP Nurse Practitioner Family
DX: M77.8 Other enthesopathies, not elsewhere classified (principal)
CPT/HCPCS: 99213

== ENCOUNTER 2024-09-09 10:32 | Outpatient (REF) | payer MEDICARE, SELFPAY | END 2024-09-09 10:33 | disposition home or self-care (01) | LOC: HO.HOSX 10:32 | DX: M25.512 Pain in left shoulder (principal); M77.8 Other enthesopathies, not elsewhere classified | CPT/HCPCS: 73030; 99212 ==

== ENCOUNTER 2024-09-15 06:02 | Outpatient (REF) | payer MEDICARE, SELFPAY ==
[2024-09-15 10:25] LABS: MANUAL DIFF FLAG NO
[2024-09-15 10:32] LABS: Basophils Percent Auto 0.5 % (0-2); Eosinophils Absolute Auto 0.1 X10*3/uL (0.0-0.4); Eosinophils Percent Auto 1.3 % (0-4); Hematocrit 41.9 % (42.0-52.0); Hemoglobin 14.2 g/dl (14.0-18.0); Imm Gran Abs Auto 0.01 X10*3/uL (0.00-0.03); Imm Gran Pct Auto 0.2 % (0.0-0.4); Lymphocytes Percent Auto 17.7 % (20-40); Mean Corpuscular HGB Conc 33.9 g/dl (31.0-36.0); Mean Corpuscular Hemoglobin 33.6 pg (27.0-33.0); Mean Corpuscular Volume 99.3 fL (80.0-98.0); Mean Platelet Volume 11.1 fL (9.4-12.4); Monocytes Absolute Auto 0.5 X10*3/uL (0.1-1.2); Monocytes Percent Auto 9.5 % (2-11); Neutrophils Percent Auto 70.8 % (45-73); Platelet Count 169 X10*3/uL (160-400); Red Blood Count 4.22 X10*6/uL (4.60-5.80); Red Cell Distribution Width 13.6 % (11.0-16.0); White Blood Count 5.6 X10*3/uL (4.8-10.8)
[2024-09-15 11:08] LABS: Alanine Aminotransferase 11 U/L (0-40); Albumin Level 4.2 g/dL (3.5-5.0); Alkaline Phosphatase 78 U/L (39-117); Anion Gap 12 (12-20); Aspartate Amino Transferase 19 U/L (5-37); Bilirubin Total 0.7 mg/dL (0.0-1.0); Blood Urea Nitrogen 18 mg/dL (9-16); Calcium 9.6 mg/dL (8.4-10.2); Carbon Dioxide 29 mmol/L (22-29); Chloride 103 mmol/L (96-108); Estimated Glomerular Filt Rate > 60; Glucose Random 135 mg/dL (60-115); Potassium 3.4 mmol/L (3.3-5.1); Sodium 141 mmol/L (135-145)
== END 2024-09-15 06:03 | disposition home or self-care (01) ==
LOC: HO.HMGCLDS 06:02
PROVIDERS: PCP Nurse Practitioner Family; Visit Provider Internal Medicine Medical Oncology
DX: C90.00 Multiple myeloma not having achieved remission (principal)
CPT/HCPCS: 36415; 80053; 85025

== ENCOUNTER 2024-09-29 06:06 | Outpatient (REF) | payer MEDICARE, SELFPAY ==
[2024-09-29 10:00] LABS: MANUAL DIFF FLAG NO
[2024-09-29 10:06] LABS: Basophils Absolute Auto 0.1 X10*3/uL (0.0-0.2); Basophils Percent Auto 1.1 % (0-2); Eosinophils Absolute Auto 0.1 X10*3/uL (0.0-0.4); Eosinophils Percent Auto 1.1 % (0-4); Hematocrit 41.2 % (42.0-52.0); Hemoglobin 14.2 g/dl (14.0-18.0); Imm Gran Abs Auto 0.02 X10*3/uL (0.00-0.03); Imm Gran Pct Auto 0.4 % (0.0-0.4); Lymphocytes Absolute Auto 0.9 X10*3/uL (1.2-4.9); Lymphocytes Percent Auto 19.9 % (20-40); Mean Corpuscular HGB Conc 34.5 g/dl (31.0-36.0); Mean Corpuscular Hemoglobin 33.3 pg (27.0-33.0); Mean Corpuscular Volume 96.7 fL (80.0-98.0); Mean Platelet Volume 11.3 fL (9.4-12.4); Monocytes Absolute Auto 0.4 X10*3/uL (0.1-1.2); Neutrophils Absolute Auto 3.2 x10*3/uL (2.0-8.3); Neutrophils Percent Auto 68.5 % (45-73); Platelet Count 174 X10*3/uL (160-400); Red Blood Count 4.26 X10*6/uL (4.60-5.80); Red Cell Distribution Width 13.8 % (11.0-16.0); White Blood Count 4.7 X10*3/uL (4.8-10.8)
[2024-09-29 10:15] LABS: Appearance Urine Clear; Color Urine Yellow; Glucose Urine UA Negative (Negative); Leukocyte Esterase Urine Negative (Negative); Nitrite Urine Negative (Negative); PH 6.5 (5.0-9.0); Specific Gravity - Urine 1.015 (1.005-1.025); Urine Blood Negative (Negative); Urine Ketones Negative (Negative); Urine Protein Negative (Neg-Trace)
[2024-09-29 10:22] LABS: Alanine Aminotransferase 13 U/L (0-40); Albumin Level 4.2 g/dL (3.5-5.0); Alkaline Phosphatase 81 U/L (39-117); Anion Gap 13 (12-20); Aspartate Amino Transferase 22 U/L (5-37); Bilirubin Total 0.7 mg/dL (0.0-1.0); Blood Urea Nitrogen 13 mg/dL (9-16); Calcium 9.9 mg/dL (8.4-10.2); Carbon Dioxide 29 mmol/L (22-29); Chloride 103 mmol/L (96-108); Cholesterol 159 mg/dL (<200); Estimated Glomerular Filt Rate > 60; Glucose Random 107 mg/dL (60-115); HDL Cholesterol 53 mg/dL (>40); LDL Cholesterol Calculated 92 mg/dL (<100); Potassium 3.5 mmol/L (3.3-5.1); Sodium 141 mmol/L (135-145); Total Protein 5.8 g/dL (6.5-8.0); Triglycerides 73 mg/dL (<150)
[2024-09-29 10:41] LABS: TSH reflex Free T4 0.74 uIU/mL (0.32-4.0); Vitamin D 25-OH Total 81.4 ng/mL (>30)
[2024-10-03 09:19] LABS: Kappa Light Chain, Free Serum 2.2 mg/L (3.3-19.4); Kappa/Lambda Lt Ch Free Ratio 1.38 (0.26-1.65); Lambda Light Chain, Free Serum 1.6 mg/L (5.7-26.3)
[2024-10-04 17:13] LABS: IgA 8 mg/dL (70-320); IgG 259 mg/dL (600-1540); IgM 6 mg/dL (50-300)
== END 2024-09-29 06:07 | disposition home or self-care (01) ==
LOC: HO.HMGCLDS 06:06
PROVIDERS: PCP Nurse Practitioner Family; Visit Provider Internal Medicine Medical Oncology
DX: C90.00 Multiple myeloma not having achieved remission (principal); E78.5 Hyperlipidemia, unspecified; I10 Essential (primary) hypertension; E55.9 Vitamin D deficiency, unspecified
CPT/HCPCS: 36415; 80053; 80061; 81003; 82306; 82784; 83521; 84443; 85025; 86334

== ENCOUNTER 2024-10-13 09:43 | Outpatient (REF) | payer MEDICARE, SELFPAY ==
[2024-10-13 12:58] LABS: MANUAL DIFF FLAG NO
[2024-10-13 13:07] LABS: Basophils Absolute Auto 0.1 X10*3/uL (0.0-0.2); Eosinophils Absolute Auto 0.1 X10*3/uL (0.0-0.4); Eosinophils Percent Auto 1.1 % (0-4); Hematocrit 42.4 % (42.0-52.0); Hemoglobin 14.1 g/dl (14.0-18.0); Imm Gran Abs Auto 0.03 X10*3/uL (0.00-0.03); Imm Gran Pct Auto 0.5 % (0.0-0.4); Lymphocytes Absolute Auto 1.3 X10*3/uL (1.2-4.9); Lymphocytes Percent Auto 20.8 % (20-40); Mean Corpuscular HGB Conc 33.3 g/dl (31.0-36.0); Mean Corpuscular Hemoglobin 32.9 pg (27.0-33.0); Mean Corpuscular Volume 98.8 fL (80.0-98.0); Mean Platelet Volume 11.1 fL (9.4-12.4); Monocytes Absolute Auto 0.6 X10*3/uL (0.1-1.2); Monocytes Percent Auto 8.9 % (2-11); Neutrophils Absolute Auto 4.2 x10*3/uL (2.0-8.3); Neutrophils Percent Auto 67.7 % (45-73); Platelet Count 213 X10*3/uL (160-400); Red Blood Count 4.29 X10*6/uL (4.60-5.80); Red Cell Distribution Width 13.1 % (11.0-16.0); White Blood Count 6.2 X10*3/uL (4.8-10.8)
[2024-10-13 13:23] LABS: Alanine Aminotransferase 18 U/L (0-40); Albumin Level 4.2 g/dL (3.5-5.0); Alkaline Phosphatase 82 U/L (39-117); Anion Gap 11 (12-20); Aspartate Amino Transferase 21 U/L (5-37); Bilirubin Total 0.8 mg/dL (0.0-1.0); Blood Urea Nitrogen 16 mg/dL (9-16); Carbon Dioxide 29 mmol/L (22-29); Chloride 104 mmol/L (96-108); Estimated Glomerular Filt Rate > 60; Glucose Random 83 mg/dL (60-115); Potassium 3.5 mmol/L (3.3-5.1); Sodium 140 mmol/L (135-145); Total Protein 6.2 g/dL (6.5-8.0)
== END 2024-10-13 09:44 | disposition home or self-care (01) ==
LOC: HO.HMGCLDS 09:43
PROVIDERS: PCP Nurse Practitioner Family; Visit Provider Internal Medicine Medical Oncology
DX: C90.00 Multiple myeloma not having achieved remission (principal)
CPT/HCPCS: 36415; 80053; 85025

== ENCOUNTER 2024-10-17 07:16 | Outpatient (AMB) | payer MEDICARE, SELFPAY ==
[2024-10-17 07:40] VITALS: BP 124/64; PULSE 92; O2SAT 96; BMI 24.3
--- NOTE | 2024-10-17 07:40 | MHC.PC.OV ---
Vital Signs 10/17/24 07:40 Height 5 ft 8 in Weight 160 lb BMI 24.3 BP 124/64 Blood Pressure Location Lt brachial Position Sitting Pulse 92 Pulse Source Pulse Oximeter Pulse Oximetry (%) 96 Oxygen Delivery Method Room Air Intake Visit Reasons: Annual PE Intake Note: Pt is here today for his PE Allergies No Known Allergies Allergy (Verified 10/17/24 08:09) Medication List - Last Reconciled 10/17/24 by Tho Cruz, SEO ASSISTANT- acyclovir 400 mg PO DAILY amlodipine (Norvasc) 10 mg PO DAILY aspirin 81 mg PO DAILY MDD 81 atorvastatin 40 mg PO BEDTIME finasteride 1/2 Tablet 3 times a week orally 3 times a week; hydrochlorothiazide 25 mg PO DAILY lisinopril 5 mg PO DAILY metoprolol succinate ER 100 mg PO DAILY czgez-[id number]-fish oil 300-1,000 mg ([place]-3 Fish Oil) 1 cap PO BEDTIME ondansetron 8 mg PO Q8H PRN potassium chloride ER 20 mEq PO DAILY vitamin D3-vitamin K2 137.5-200 mcg 1 tab PO DAILY Tobacco use date assessed: 04/05/24 Fall risk assessment: 1 Fall in past year Last assessed Fall Risk: 10/17/24 Dental Screening Dental Screen Date: 10/17/24 Did you have a dental visit in the last 12 months?: No Did you have a dental problem in the last 6 months where you did not have access to dental care?: No Was dental information given to patient?: Patient has dentist HPI Annual PE HPI Details History of Present Illness The patient is a 78-year-old male presenting with a need for a physical examination and management of his chronic medical conditions. He has a history of constipation associated with chemotherapy, managed previously with medication with satisfactory outcomes. He experiences episodes of low back pain, with potential nerve involvement indicative of sciatica, particularly after lifting heavy objects. This back pain began approximately one month ago and is alleviated by bending forward or sitting. He reports prior physical therapy for left shoulder pain, which he has since self-resolved by ceasing therapy and relying on natural healing. Additionally, he manages a hernia with a supportive truss, noting occasional protrusions that he adjusts manually. The patient has encountered significant difficulty with health insurance billing discrepancies, causing stress. pt sees cardiology, hematology/oncology, urology, and vascular Health Maintenance - - Previous pneumonia vaccination administration - Discussion about RSV vaccination availability Social History - Retired from employment, maintains some functional activity - Actively involved in managing his healthcare and insurance issues - Engages in household tasks despite physical strains - Reports good family support Review of Systems - Musculoskeletal: Reports low back pain radiating to the right leg - Cardiovascular: Reports atrial fibrillation management - Digestive: Reports episodes of constipation - Genitourinary: Denies recent PSA test Physical Exam -clear lungs - Cardiovascular- S1 S2, murmur -+patellar reflexes -abd nontender, nondistended -no pelvic pressure with palpation -A+Ox3 -skin intact psych: good judgement, pleasant, - Musculoskeletal- Right-sided low back tenderness, no change in range of motion noted upon examination Results - Labs: EKG ordered to evaluate PVCs Plan - Constipation: Continuous monitoring due to past chemotherapy impacts, continue current management protocol - Low back pain: Recommendations for anti-inflammatory medications and heat application. Awaiting evaluation by evidence specialist Dr. Mcmillan. - Hernia: Advise continued use of truss - Physical examination findings and past lab tests indicate no urgent new interventions Patient was informed and verbally consented to the use of an ambient scribe for clinic note documentation during this visit. Discussion Notes During the consultation, I emphasized to the patient the importance of continuing current management strategies for his constipation linked to chemotherapy, and we discussed potential adjustments to his regimen if required. I explained that his back pain is likely due to nerve compression suggestive of sciatica, and relief might be achieved with conservative measures. Additionally, I suggested further exploration of the utility of RSV vaccination. Patient Instructions - Continue with your current medication schedule as discussed. - Apply heat therapy for back pain, and consider taking anti-inflammatory medication as needed. - Contact Dr. Mcmillan if your back symptoms persist or worsen. - Report any drastic changes in your health or if new symptoms arise. - Discuss any outstanding billing issues with your insurance provider, ensuring all payments and coverage are confirmed. [facility] Medical History Pneumonia Statin intolerance HTN (hypertension) AAA (abdominal aortic aneurysm) Vitamin D deficiency Subclinical hyperthyroidism Multinodular thyroid Pancytopenia Leukopenia Multiple myeloma Surgical History Hx of hernia repair (07/08/18) History of bone marrow biopsy Hx of tooth extraction History of back surgery Hx of umbilical hernia repair (06/28/13) History of AAA (abdominal aortic aneurysm) repair Family History Father CVD (cardiovascular disease) AAA (abdominal aortic aneurysm) Mother Stomach cancer Social History Household Members: Spouse Housing: House Are you a primary healthcare market consultant to a significant other at home: No Do you presently have visiting nurse or other home services: No Alcohol intake: former Comment: Patient refuses bed alarm Patient Tobacco Use Status: Former Tobacco user Years Smoked: 38 e-Cigarette/Vaping Use: Never Used Second Hand Smoke Exposure: No Special tiesha needs: No Agree to transfusion: Yes Advance Directives Date on File: 01/11/21 service: Yes Current occupational status: employed and retired Cognitive needs: No Hearing needs: No Vision needs: No Questionnaire PHQ-9 Over the last 2 weeks, how often have you been bothered by any of the following problems? 63992 - PHQ-9 Billing: Patient declined-do not bill Source: Developed by Drs. Hussein Walton, Elpidio Hill and colleagues, with an educational artem from [email or web address]. Thrive Questionnaire Date Thrive assessed: 04/05/24 LITTLE-7 AMB Questionnaire LITTLE-7 Date LITTLE - 7 assessed: 04/05/24 Source: Developed by Drs. Hussein Walton, Elpidio Hill and colleagues, with an educational artem from [email or web address]. Physical exam (Primary Care) Vital Signs: Last Vital Signs Pulse 92 10/17/24 07:40 BP 124/64 10/17/24 07:40 Pulse Ox 96 10/17/24 07:40 Oxygen Delivery Method Room Air 10/17/24 07:40 BMI result Body Mass Index 24.3 Tobacco/Smoking Status: Tobacco use Status Tobacco use date assessed 04/05/24 10/17/24 07:41 Patient Tobacco Use Status Former Tobacco user 10/17/24 07:41 e-Cigarette/Vaping Use Never Used 10/17/24 07:41 Thrive Assessment: Date of Thrive Assessment Date Thrive assessed 04/05/24 10/17/24 07:41 Coding Level of Care Code Est Pt Prev Care >65y(25362) Diagnoses Physical exam Z00. Vitamin D deficiency E55.9 Assessment & Plan Assessment & Plan (1) Physical exam: Code(s): Z00.00 - Encounter for general adult medical examination without abnormal findings Category: Medical (2) Vitamin D deficiency: Code(s): E55.9 - Vitamin D deficiency, unspecified Category: Medical Plan . Orders: Orders Comprehensive [place]. Panel Fast Today Z00.00 - Encounter for general adult medical examination without abnormal findings TSH reflex Free T4 Today Z00.00 - Encounter for general adult medical examination without abnormal findings Vitamin D 25-OH Total Today E55.9 - Vitamin D deficiency, unspecified Complete Blood Count Auto Diff Today Z00.00 - Encounter for general adult medical examination without abnormal findings UA CC w/rflx Micro + Cult Today Z00.00 - Encounter for general adult medical examination without abnormal findings Lipid Panel Today Z00.00 - Encounter for general adult medical examination without abnormal findings AMB EKG-In Office Today Z00.00 - Encounter for general adult medical examination without abnormal findings
== END 2024-10-17 09:28 | disposition home or self-care (01) ==
PROVIDERS: PCP Nurse Practitioner Family; Visit Provider Nurse Practitioner Family
DX: Z00.00 Encounter for general adult medical examination without abnormal findings (principal); E55.9 Vitamin D deficiency, unspecified

== ENCOUNTER → 2024-10-17 07:16 | Outpatient (BNVA) | payer MEDICARE, SELFPAY | PROVIDERS: PCP Nurse Practitioner Family; Visit Provider Nurse Practitioner Family | DX: Z00.00 Encounter for general adult medical examination without abnormal findings (principal); E55.9 Vitamin D deficiency, unspecified | CPT/HCPCS: 99397 ==

== ENCOUNTER 2024-10-27 06:03 | Outpatient (REF) | payer MEDICARE, SELFPAY ==
[2024-10-27 10:05] LABS: MANUAL DIFF FLAG NO
[2024-10-27 10:11] LABS: Basophils Percent Auto 0.8 % (0-2); Eosinophils Absolute Auto 0.1 X10*3/uL (0.0-0.4); Eosinophils Percent Auto 1.9 % (0-4); Hematocrit 42.1 % (42.0-52.0); Hemoglobin 14.3 g/dl (14.0-18.0); Imm Gran Abs Auto 0.02 X10*3/uL (0.00-0.03); Imm Gran Pct Auto 0.4 % (0.0-0.4); Lymphocytes Percent Auto 21.6 % (20-40); Mean Corpuscular Hemoglobin 33.3 pg (27.0-33.0); Mean Corpuscular Volume 98.1 fL (80.0-98.0); Monocytes Absolute Auto 0.5 X10*3/uL (0.1-1.2); Monocytes Percent Auto 10.2 % (2-11); Neutrophils Absolute Auto 3.1 x10*3/uL (2.0-8.3); Neutrophils Percent Auto 65.1 % (45-73); Platelet Count 185 X10*3/uL (160-400); Red Blood Count 4.29 X10*6/uL (4.60-5.80); Red Cell Distribution Width 13.7 % (11.0-16.0); White Blood Count 4.8 X10*3/uL (4.8-10.8)
[2024-10-27 10:26] LABS: Alanine Aminotransferase 10 U/L (0-40); Albumin Level 4.1 g/dL (3.5-5.0); Alkaline Phosphatase 64 U/L (39-117); Anion Gap 12 (12-20); Aspartate Amino Transferase 20 U/L (5-37); Bilirubin Total 0.6 mg/dL (0.0-1.0); Blood Urea Nitrogen 15 mg/dL (9-16); Calcium 9.1 mg/dL (8.4-10.2); Carbon Dioxide 28 mmol/L (22-29); Chloride 108 mmol/L (96-108); Cholesterol 166 mg/dL (<200); Estimated Glomerular Filt Rate > 60; Glucose Fasting 99 mg/dL (60-99); HDL Cholesterol 52 mg/dL (>40); LDL Cholesterol Calculated 101 mg/dL (<100); Potassium 3.7 mmol/L (3.3-5.1); Sodium 144 mmol/L (135-145); Total Protein 5.9 g/dL (6.5-8.0); Triglycerides 68 mg/dL (<150)
[2024-10-27 10:45] LABS: Appearance Urine Cloudy; Color Urine Yellow; Glucose Urine UA Negative (Negative); Leukocyte Esterase Urine Negative (Negative); Nitrite Urine Negative (Negative); PH 7.5 (5.0-9.0); Specific Gravity - Urine 1.015 (1.005-1.025); TSH reflex Free T4 0.71 uIU/mL (0.32-4.0); Urine Blood Negative (Negative); Urine Ketones Negative (Negative); Urine Protein Negative (Neg-Trace); Vitamin D 25-OH Total 75.1 ng/mL (>30)
== END 2024-10-27 06:04 | disposition home or self-care (01) ==
LOC: HO.HMGCLDS 06:03
PROVIDERS: PCP Nurse Practitioner Family; Referring Provider Internal Medicine Medical Oncology; Visit Provider Nurse Practitioner Family
DX: Z00.00 Encounter for general adult medical examination without abnormal findings (principal); E55.9 Vitamin D deficiency, unspecified; I10 Essential (primary) hypertension; M70.61 Trochanteric bursitis, right hip
CPT/HCPCS: 20610; 36415; 80053; 80061; 81003; 82306; 84443; 85025; 99212; J0665; J1100; J2003

== ENCOUNTER 2024-10-27 10:34 | Outpatient (AMB) | payer MEDICARE, SELFPAY ==
--- NOTE | 2024-10-27 10:54 | MHC.OFFVIS ---
Vital Signs 10/27/24 11:23 Height 5 ft 8 in Weight 160 lb BMI 24.3 Intake Visit Reasons: New problem- Right Hip pain Intake Note: Hussein is a 78 year old male who presents today for a new problem visit with complaints of right hip pain. Patient complains of bilateral hip pain, left greater than right. 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 once he stood up he felt instant pain in the right hip/leg. Pain is felt with increased activity and finds relief with rest. He explains that his pain has radiated to the center of the lower back and down the front of the leg. Pain is triggered when bending over. He was seen with pain mgmt who discussed trigger point injections, but wanted patient to discuss with oncologist first. Allergies No Known Allergies Allergy (Verified 10/17/24 08:09) HPI HPI New problem- Right Hip pain: Details: Hussein is a 78 year old male who presents today for a new problem visit with complaints of right hip pain. Patient complains of bilateral hip pain, left greater than right. 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 once he stood up he felt instant pain in the right hip/leg. Pain is felt with increased activity and finds relief with rest. He explains that his pain has radiated to the center of the lower back and down the front of the leg. Pain is triggered with bending over. He was seen with pain mgmt who discussed trigger point injections, but wanted patient to discuss with oncologist first. [facility] Medical History Pneumonia Statin intolerance HTN (hypertension) AAA (abdominal aortic aneurysm) Vitamin D deficiency Subclinical hyperthyroidism Multinodular thyroid Pancytopenia Leukopenia Multiple myeloma Surgical History Hx of hernia repair (07/08/18) History of bone marrow biopsy Hx of tooth extraction History of back surgery Hx of umbilical hernia repair (06/28/13) History of AAA (abdominal aortic aneurysm) repair Family History Father CVD (cardiovascular disease) AAA (abdominal aortic aneurysm) Mother Stomach cancer Social History Household Members: Spouse Housing: House Are you a primary grounds caretaker to a significant other at home: No Do you presently have visiting nurse or other home services: No Alcohol intake: former Comment: Patient refuses bed alarm Patient Tobacco Use Status: Former Tobacco user Years Smoked: 38 Smoked in Last 30 Days: No e-Cigarette/Vaping Use: Never Used Second Hand Smoke Exposure: No Use of substances other than those prescribed or required for medical reasons: No Special tiesha needs: No Agree to transfusion: Yes Advance Directives: Yes Advance Directives on File: Yes Advance Directives Date on File: 01/11/21 service: Yes Current occupational status: employed and retired Cognitive needs: No Hearing needs: No Vision needs: No Physical Exam Vital Signs: BMI result Body Mass Index 24.3 Extrem Other: On exam Hussein has Trendelenburg gait with mildly positive impingement test and tenderness to palpation over the right greater trochanter. Do Office Procedures Joint Inj/Aspir; Non-Pain Clin Joint Injection/Drain Details: Injected 1 mL of Decadron and 3 mL 1% lidocaine and 3 mL of 0.25% Marcaine. Site was prepped using aseptic technique. Patient tolerated the procedure well. Approach Used: posterolateral Shoulders, Hips, Knees, Hip Injection Large Joint : Right Hip (Greater trochanter) Coding Procedure code (CPT) selection complete Results Reviewed Results Reviewed: Bgay-ne-ixtnogub degenerative changes bilateral hips Assessment & Plan Assessment & Plan (1) Greater trochanteric bursitis of right hip: Code(s): M70.61 - Trochanteric bursitis, right hip Category: Medical Plan: This is a 78-year-old gentleman with symptoms of greater trochanteric bursitis. He does also have some arthritis with groin pain but this seems to be less prominent. I injected his right greater trochanter. She did not feel particularly better after the injection but think he should give it a few days. I would recommend stretching and activity modification. He will see me back in 3 months if injection is not helpful we can consider intra-articular steroid injection although his osteoarthritis is [id number]. Orders: Orders XR pelvis 1-2V 10/27/24 M25.559 - Pain in unspecified hip Coding Level of Care Code Est Pt Level 3 (09426) Diagnoses Greater trochanteric bursitis of right hip M70.61 CPT Codes Shoulders, Hips, Knees, - Hip Injection Large Joint 07606: Right Hip ([id number])
[2024-10-27 11:23] VITALS: BMI 24.3
== END 2024-10-27 12:12 | disposition home or self-care (01) ==
PROVIDERS: PCP Nurse Practitioner Family; Visit Provider Orthopaedic Surgery
DX: M70.61 Trochanteric bursitis, right hip (principal)
CPT/HCPCS: 20610; 99213

== ENCOUNTER 2024-10-27 11:01 | Outpatient (REF) | payer MEDICARE, SELFPAY ==
--- NOTE | ~2024-10-27 | XR_ITS ---
EXAMINATION: XR PELVIS CLINICAL INFORMATION: M25.559 - Pain in unspecified hip COMPARISON: None available. TECHNIQUE: AP view of the pelvis. FINDINGS: No fracture. Mild degenerative osteoarthritic changes of both hip joints evident by narrowing of joint spaces and sclerotic changes of the acetabular roofs left more than right.. Alignment is anatomic. There are vascular calcification, aortic/biiliac stent in place. Sacroiliac joints and pubic symphysis are normal. No abnormal soft tissue calcifications. XR/XR pelvis 1-2V IMPRESSION: 1. 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 2. No fracture. 3. Vascular calcification and aortic stent in place.. Electronically signed by: Loretta Padilla MD 10/29/2024 11:54 AM YEIMI MEADOWS
== END 2024-10-27 11:02 | disposition home or self-care (01) ==
LOC: HO.HOSX 11:01
PROVIDERS: Visit Provider Orthopaedic Surgery
DX: M25.559 Pain in unspecified hip (principal)
CPT/HCPCS: 72170

== ENCOUNTER 2024-11-10 07:06 | Outpatient (REF) | payer MEDICARE, SELFPAY ==
[2024-11-10 10:03] LABS: MANUAL DIFF FLAG NO
[2024-11-10 10:08] LABS: Basophils Absolute Auto 0.1 X10*3/uL (0.0-0.2); Basophils Percent Auto 0.9 % (0-2); Eosinophils Absolute Auto 0.1 X10*3/uL (0.0-0.4); Eosinophils Percent Auto 1.7 % (0-4); Hematocrit 42.2 % (42.0-52.0); Imm Gran Abs Auto 0.02 X10*3/uL (0.00-0.03); Imm Gran Pct Auto 0.4 % (0.0-0.4); Lymphocytes Absolute Auto 1.3 X10*3/uL (1.2-4.9); Mean Corpuscular HGB Conc 33.2 g/dl (31.0-36.0); Mean Corpuscular Hemoglobin 33.3 pg (27.0-33.0); Mean Corpuscular Volume 100.2 fL (80.0-98.0); Mean Platelet Volume 10.9 fL (9.4-12.4); Monocytes Absolute Auto 0.6 X10*3/uL (0.1-1.2); Monocytes Percent Auto 10.5 % (2-11); Neutrophils Absolute Auto 3.5 x10*3/uL (2.0-8.3); Neutrophils Percent Auto 63.5 % (45-73); Platelet Count 177 X10*3/uL (160-400); Red Blood Count 4.21 X10*6/uL (4.60-5.80); Red Cell Distribution Width 13.9 % (11.0-16.0); White Blood Count 5.4 X10*3/uL (4.8-10.8)
[2024-11-10 10:21] LABS: Alanine Aminotransferase 12 U/L (0-40); Albumin Level 4.1 g/dL (3.5-5.0); Alkaline Phosphatase 76 U/L (39-117); Anion Gap 10 (12-20); Aspartate Amino Transferase 17 U/L (5-37); Bilirubin Total 0.6 mg/dL (0.0-1.0); Blood Urea Nitrogen 17 mg/dL (9-16); Calcium 9.4 mg/dL (8.4-10.2); Carbon Dioxide 29 mmol/L (22-29); Chloride 106 mmol/L (96-108); Estimated Glomerular Filt Rate > 60; Glucose Random 91 mg/dL (60-115); Potassium 3.3 mmol/L (3.3-5.1); Sodium 142 mmol/L (135-145); Total Protein 5.9 g/dL (6.5-8.0)
== END 2024-11-10 07:07 | disposition home or self-care (01) ==
LOC: HO.HMGCLDS 07:06
PROVIDERS: PCP Nurse Practitioner Family; Visit Provider Internal Medicine Medical Oncology
DX: C90.00 Multiple myeloma not having achieved remission (principal)
CPT/HCPCS: 36415; 80053; 85025

== ENCOUNTER 2024-11-16 14:22 | Outpatient (AMB) | payer MEDICARE, SELFPAY ==
--- NOTE | 2024-11-16 14:22 | A.OFFVIS_ITS ---
Intake Visit Reasons: 6M PSA(Set) Intake Note: Patient is present for 6M PSA Urology Medication:FINASTERIDE Antibiotic Allergy:NONE Blood Thinner:ASPIRIN,VITAMIN K2 Senior Billing Consultant Required: No Allergies No Known Allergies Allergy (Verified 11/16/24 14:23) HPI Comments Details: Hussein is a very pleasant male. He is a patient of Dr. Liao. He is seen for the following urologic conditions - elevated PSA Telemedicine Evaluation 15 min Consultation Edupath Deo Video Tolerating medication - 1/2 tab on Thursday, Thursday, Thursday PSA stable Six-month follow-up lab work Elevated PSA PSA 10/29 9.0, 05/30 6.5, 05/31 2.4, 10/31 5.52, 06/01 2.8, 10/02 3.1 Urinary parameters nocturia times to secondary to multiple myeloma, variable stream, occasional hesitancy Trial finasteride TIFFANIE 2+ prostate soft, base nodule right Family history prostate cancer younger brother Plan - continue finasteride - 1/2 tab Thursday, Thursday, Thursday PFSH Medical History Pneumonia Statin intolerance HTN (hypertension) AAA (abdominal aortic aneurysm) Vitamin D deficiency Subclinical hyperthyroidism Multinodular thyroid Pancytopenia Leukopenia Multiple myeloma Surgical History Hx of hernia repair (07/08/18) History of bone marrow biopsy Hx of tooth extraction History of back surgery Hx of umbilical hernia repair (06/28/13) History of AAA (abdominal aortic aneurysm) repair Family History Father CVD (cardiovascular disease) AAA (abdominal aortic aneurysm) Mother Stomach cancer Social History Household Members: Spouse Housing: House Are you a primary team primary care physician to a significant other at home: No Do you presently have visiting nurse or other home services: No Alcohol intake: former Comment: Patient refuses bed alarm Patient Tobacco Use Status: Former Tobacco user Years Smoked: 38 e-Cigarette/Vaping Use: Never Used Second Hand Smoke Exposure: No Special tiesha needs: No Agree to transfusion: Yes Advance Directives Date on File: 01/11/21 service: Yes Current occupational status: employed and retired Cognitive needs: No Hearing needs: No Vision needs: No Review of Systems Const All systems reviewed & are unremarkable except as noted in HPI and below Reports no additional complaints Resp Reports no additional complaints GI Reports no additional complaints Reports as per HPI Musc Reports no additional complaints Physical Exam Telemedicine evaluation Appropriate responses Regular breathing rate and rhythm HEENT Head: Yes normal to inspection Ears: hearing grossly normal bilaterally Eyes General: appearance normal, both eyes and all related structures Neck Neck: Yes normal visual inspection Chest Chest palpation & inspection: normal inspection of the chest Resp Effort & Inspection: normal respiratory effort and able to speak in complete sentences Telehealth Telehealth Telehealth Platform: Edupath Location of provider rendering services: practice address Location of patient: address on file Patient Identification confirmed using: Name, : Yes Telehealth method: video Patient verbally consented to treatment: Yes Patient verbally consented to billing insurance company: Yes Patient informed of any privacy concerns related to visit: Yes Minutes spent on Phone/Video with Pt.: 15 Assessment & Plan Assessment & Plan (1) Prostate nodule: Code(s): N40.2 - Nodular prostate without lower urinary tract symptoms Category: Medical (2) Elevated PSA: Code(s): R97.20 - Elevated prostate specific antigen [PSA] Category: Medical Plan Six-month follow-up Patient Instructions: Imaging studies, laboratory and physical exam results were discussed and reviewed in detail. No major barriers to patient understanding were identified. An opportunity to ask questions regarding the treatment plan was provided. All questions were answered. The patient expressed understanding and agreement with the above treatment plan. The patient is aware they should contact our office by phone for worsening of their current condition or the appearance of new urologic symptoms. Compliance is encouraged with any medications and followup testing that is ordered. It is a privilege to participate in the urologic care of your patient. If you have any questions or concerns regarding treatment for the above conditions, or other urologic issues, please do not hesitate to contact me. The office telephone contact is [phone]. This note is constructed using voice recognition software. While every effort has been made to ensure accuracy rental sales associate errors may have been included. Yours sincerely, Dr Bar Ralph MD, [facility] - Urology Providers of Expert, Compassionate Care for the Genitourinary System Coding Level of Care Code Tele Est Pt Level 3 (24201) Diagnoses Prostate nodule N40.2 Elevated PSA R97.20
== END 2024-11-16 14:43 | disposition home or self-care (01) ==
LOC: HO.HUSH 14:22
PROVIDERS: PCP Nurse Practitioner Family; Visit Provider Urology
DX: N40.2 Nodular prostate without lower urinary tract symptoms (principal); R97.20 Elevated prostate specific antigen [PSA]
CPT/HCPCS: 99213

== ENCOUNTER 2024-12-08 06:49 | Outpatient (REF) | payer MEDICARE, SELFPAY ==
[2024-12-08 10:11] LABS: MANUAL DIFF FLAG NO
[2024-12-08 10:23] LABS: Basophils Percent Auto 0.5 % (0-2); Eosinophils Absolute Auto 0.1 X10*3/uL (0.0-0.4); Eosinophils Percent Auto 1.5 % (0-4); Hematocrit 43.3 % (42.0-52.0); Hemoglobin 14.6 g/dl (14.0-18.0); Imm Gran Abs Auto 0.03 X10*3/uL (0.00-0.03); Imm Gran Pct Auto 0.5 % (0.0-0.4); Lymphocytes Absolute Auto 1.1 X10*3/uL (1.2-4.9); Lymphocytes Percent Auto 18.8 % (20-40); Mean Corpuscular HGB Conc 33.7 g/dl (31.0-36.0); Mean Corpuscular Hemoglobin 33.6 pg (27.0-33.0); Mean Corpuscular Volume 99.5 fL (80.0-98.0); Mean Platelet Volume 11.2 fL (9.4-12.4); Monocytes Absolute Auto 0.6 X10*3/uL (0.1-1.2); Monocytes Percent Auto 10.4 % (2-11); Neutrophils Absolute Auto 4.2 x10*3/uL (2.0-8.3); Neutrophils Percent Auto 68.3 % (45-73); Platelet Count 180 X10*3/uL (160-400); Red Blood Count 4.35 X10*6/uL (4.60-5.80); Red Cell Distribution Width 13.4 % (11.0-16.0); White Blood Count 6.1 X10*3/uL (4.8-10.8)
--- OUTSIDE RECORDS SUMMARY | 2024-12-08 10:26 | XMS_ITS | Patient Health Record ---
Author Organization [facility] Address [address] [place] [address] Care Team Providers Care Pasta Press Operator Name Role Phone CLIFF LINTON Primary Care Provider Ana Madsen Unavailable [phone] ALLERGIES Allergen (clinical drug ingredient) Drug/Non Drug Allergy documented on EMR Reaction Allergy Type Onset Date Status oxycodone oxycodone (uncoded) n/v severe Allergy Active REASON FOR REFERRAL No Information MEDICATIONS Medication SIG (Take, Route, Frequency, Duration) Notes Start Date End Date Status amLODIPine Besylate 10 MG 1 tablet Orall y Once a day Active Velcade Not-Taking Metoprolol Succinate ER 100 MG 1 tablet Orally Once a day Active Zometa Not-Taking hydroCHLOROthiazide 25 MG 1 tablet in th e morning Orally Once a day Active Acyclovir 400 MG 1 capsule Orally as directed Active Lisinopril 5 MG 1 tablet Orally Once a day Active Multivitamin Active Pantoprazole Sodium 40 MG 1 tablet Orall y Once a day Active Vitamin K2 Active Atorvastatin Calcium 40 MG 1 tablet Orally Once a day Active Ondansetron Active Denosumab 60 MG/ML as directed Subcutaneous once per month Prolia-oste oporosis Active Calcium Active Docusate Sodium 100 MG 1 capsule as needed Orally Once a day for 30 day(s) Active Vitamin D3 Active Fish Oil Active Darzalex 100 MG/5ML as directed Intravenous weekly chemo Active Multivitamin Active Decadron 24 MG/ML as directed Intravenous Weekly For chemo Active Aspirin 81 Active Carfilzomib 60 MG as directed Intravenous weekly chemo Active IMMUNIZATIONS Vaccine Route Administration Date Status Comme nts Influenza Unknown 07/10/2021 Administered Influenza Unknown 05/04/2020 Refused SOCIAL HISTORY Tobacco Use: Social History Observation Description Date Details (start date - stop date) Former Smoker NA - NA Sex Assigned At : Social History Observation Description Sex Assigned At Unknown Tobacco Use/Smoking Question Answer Notes Patient is a former smoker When did you stop smoking? 2009 How long has it been since you last smoked? > 10 years Alcohol Screen Question Answer Notes Did you have a drink containing alcohol in the p ast year? No Points 0 Interpretation Negative PROBLEMS Problem Type ICD Code Onset Dates Problem Status W/U Status Risk SNOMED Code Notes Problem Encounter for screening for malignant neoplasm of colon (Z12.11) Active confirmed 724572086 Problem Preprocedural examination (Z01.818) Active confirmed [id number] Problem Constipation, unspecified constipation type (K59.00) Active confirmed 29033574 Problem Nausea with vomiting, unspecified (R11.2) Active confirmed Nausea and vomiting (81597090) PLAN OF TREATMENT No Information Insurance Providers Payer Name Payer Address Payer Phone Subscriber Number Group Number Insured Name Patient Relationship to Insured Coverage Start Date Coverage End Date [facility] [address] [place] [phone] [id number] ANA ORTIZ Self - patient is the insured MEDICAL (GENERAL) HISTORY Medical History History ICD Code Emphysema-mild Denies CO,DM,CVA,renal disease Arthritis Multiple myeloma 10/2019--sees Dr. Chacorta mendez for chemotherapy HTN Neg. colonoscopy in 08/2009 Hyperlipidemia Abdominal aortic aneurysm with treatment as below Surgical History Surgery Date(Month/Year) Lumbar surgery - Dr. De La Paz 2007 Endovascular graft placement at [facility] for AAA--sees Dr. Galeano now 2009 Hernia repairs- left inguinal and umbili broderick
--- OUTSIDE RECORDS SUMMARY | 2024-12-08 10:26 | XMS_ITS | Clinical Summary ---
Author Organization [address] Address [address] [place] [address] Phone Care Team Providers Care Crutching Contractor Name Role Phone Tho Cruz NP Primary Care Provider + Medications atorvastatin (LIPITOR) 40 mg tablet Take 40 mg by mouth daily. Active amLODIPine (NORVASC) 10 mg tablet Take 10 mg by mouth daily. Active hydroCHLOROthia zide (HYDRODIURIL) 25 mg tablet Take 25 mg by mouth daily. Active lisinopriL (PRINIVIL,ZESTR IL) 2.5 mg tablet Take 5 mg by mouth daily. Active metoprolol succinate XL (TOPROL-XL) 100 mg 24 hr tablet Take 100 mg by mouth daily. Take with or immediately following a meal. Active aspirin 325 mg EC tablet Take 325 mg by mouth daily. Active multivitamin capsule Take 1 capsule by mouth daily. Active Social History Tobacco Use Types Packs/Day Years Used Date Smoking Tobacco: Never Assessed Sex and Gender Information Value Date Recorded Sex Assigned at Not on file Legal Sex Male 2:19 AM EDT Gender Identity Not on file Sexual Orientation Not on file Last Filed Vital Signs Vital Sign Reading Time Taken Comments Blood Pressure 122/56 05/07/2021 4:30 AM EDT Pulse 103 05/07/2021 2:37 AM EDT Temperature 37.4 ??C (99.3 ??F) 05/07/2021 3:38 AM ED T Respiratory Rate 18 05/07/2021 2:37 AM EDT Oxygen Saturation 92% 05/07/2021 4:30 AM EDT Inhaled Oxygen Concentration - - Weight 76.4 kg (168 lb 6.9 oz) 05/07/2021 2:24 A M EDT Height - - Body Mass Index - - Plan of Treatment Health Maintenance Due Date Last Done Comments HIV screening 1959 Hepatitis C screening 1964 Tetanus adult (Td q 10,TDAP once) 1966 Lipid disorder screening 1986 Shingles vaccine (Shingrix) (1 of 2 - Shingrix (RZV) 2 Dose Standard Series) 1996 Pneumo Vaccine 65+ (1 of 1 - PCV) 2011 RSV Discussion (1 - 1-dose 7 5+ series) 2021 Diabetes screening 05/07/2024 05/07/2021 Influenza vaccine 06/09/2024 Covid-19 vaccine series ( season) 2024 Meningococcal Vaccine Aged Out No alexa quan eligible based on patient's age to complete this topic Procedures Procedure Name Priority Date/Time Associated Diagnosis Comments BASIC METABOLIC PANEL STAT 05/07/2021 2:40 AM EDT from Last 3 Months or Most Recently Relevant to Health Maintenance Results * (ABNORMAL) Basic metabolic panel (05/07/2021 2:40 AM EDT) Glucose 119(H) 65 - 110 mg/dL 05/07/2021 3:12 AM EDT [facility] Comment: Non-fasting: ??65-110 mg/dL Fasting (minimum 6 hrs): ??65-99 mg/dL BUN 18 7 - 18 mg/dL 05/07/2021 3:12 AM EDT [facility] Creatinine 0.78 0.70 - 1.30 mg/dL 05/07/2021 3:12 AM EDT [facility] eGFR (-GUAMANIAN) >60 >60 mL/min/1. 73m2 05/07/2021 3:12 AM EDT [facility] eGFR (NON -Malawian) >60 >60 mL/min/1. 73m2 05/07/2021 3:12 AM EDT [facility] Comment: (NOTE) ? These are estimated GFR values resulting from ? utilization of a calculation incorporating ? the best data available for input, but all ? assumptions may not be correct in every ? case. ??In addition, there are several ? situations (elderly over 70 years, , ? serious co morbidities, extremes ? of body size or nutritional status) which ? could contribute to a misleading result. ? Therefore, clinical correlation is advised ? to prevent arriving at an erroneous ? conclusion based solely on the calculation ? utilized. Sodium 137 136 - 145 mmol/L 05/07/2021 3:12 AM EDT [facility] Potassium 3.1(L) 3.5 - 5.1 mmol/L 05/07/2021 3:12 AM EDT [facility] Chloride 104 98 - 107 mmol/L 05/07/2021 3:12 AM EDT [facility] CO2 26 21 - 32 mmol/L 05/07/2021 3:12 AM EDT [facility] Anion Gap 7 5 - 15 mmol/L 05/07/2021 3:12 AM EDT [facility] Calcium 8.5 8.5 - 10.1 mg/dL 05/07/2021 3:12 AM T [facility] Blood Venipuncture / Unknown 05/07/2021 2:40 AM EDT 05/07/2021 2:44 AM EDT us Vishnu Fontanez MD LAB BLOOD ORDERABLES Fin al Result + [facility] [address] [place] [address] from Last 3 Months or Most Recently Relevant to Health Maintenance Insurance MEDICARE MANAGED MISC MEDICARE MANAGED [facility] Member Subscriber Plan / Payer (Ef fective 2019-Present) Name:Hussein Castellano Relation to Subscriber:Self Name:Hussein Castellano Payer ID:[id number] Group ID:Not on file Type:Not on file Address: [address] [phone] MEDICARE MANAGED [facility] Care Teams Crutching Contractor Relationship Specialty Start Date End Date Tho Cruz NP [address] [place] [address] PCP - General Family Medicine 05/07/21
[2024-12-08 10:41] LABS: Alanine Aminotransferase 15 U/L (0-40); Albumin Level 4.2 g/dL (3.5-5.0); Alkaline Phosphatase 83 U/L (39-117); Anion Gap 9 (12-20); Aspartate Amino Transferase 22 U/L (5-37); Bilirubin Total 0.6 mg/dL (0.0-1.0); Blood Urea Nitrogen 14 mg/dL (9-16); Carbon Dioxide 29 mmol/L (22-29); Chloride 106 mmol/L (96-108); Estimated Glomerular Filt Rate > 60; Glucose Random 95 mg/dL (60-115); Potassium 3.4 mmol/L (3.3-5.1); Sodium 141 mmol/L (135-145); Total Protein 6.3 g/dL (6.5-8.0)
== END 2024-12-08 06:50 | disposition home or self-care (01) ==
LOC: HO.HMGCLDS 06:49
PROVIDERS: PCP Nurse Practitioner Family; Visit Provider Internal Medicine Medical Oncology
DX: C90.00 Multiple myeloma not having achieved remission (principal)
CPT/HCPCS: 36415; 80053; 85025

== ENCOUNTER 2024-12-22 08:28 | Outpatient (REF) | payer MEDICARE, SELFPAY ==
--- OUTSIDE RECORDS SUMMARY | 2024-12-22 08:37 | XMS_ITS | Clinical Summary ---
Author Organization [address] Address [address] [place] [address] Phone Care Team Providers Care Microsoft Office Instructor Name Role Phone Tho Cruz NP Primary [...] EDT [facility] eGFR (-KAZAKH) >60 >60 mL/min/1. 73m2 05/07/2021 3:12 AM EDT [facility] eGFR (NON -Mexican) >60 >60 mL/min/1. 73m2 05/07/2021 3:12 AM [...] - 145 mmol/L 05/07/2021 3:12 AM EDT [facility] Potassium 3.1(L) 3.5 - 5.1 mmol/L 05/07/2021 3:12 AM EDT [facility] Chloride 104 98 - 107 mmol/L 05/07/2021 3:12 AM EDT [facility] CO2 26 21 - 32 mmol/L 05/07/2021 3:12 AM EDT [facility] Anion Gap 7 5 - 15 mmol/L 05/07/2021 3:12 AM EDT [facility] Calcium 8.5 8.5 - 10.1 mg/dL 05/07/2021 3:12 AM T [facility] Blood Venipuncture / Unknown 05/07/2021 2:40 AM EDT 05/07/2021 2:44 AM EDT us Vishnu Fontanez MD LAB BLOOD ORDERABLES Fin al Result + [facility] [address] [place] [address] from Last 3 Months or Most Recently Relevant to Health Maintenance Insurance MEDICARE MANAGED [place] MEDIC[place] [facility] Sub[place] Plan / Payer (Ef fective 2019-Present) Name:Hussein Castellano Relation to Subscriber:Self Name:Hussein Castellano Payer ID:[id number] Group ID:Not on file Type:Not on file Address: [address] [phone] MEDICARE [place] [facility] Care Teams Microsoft Office Instructor Relationship Specialty Start Date End Date Tho Cruz NP [address] [facility] [place] [address] PCP - General Family Medicine 05/07/21
--- OUTSIDE RECORDS SUMMARY | 2024-12-22 08:37 | XMS_ITS | Patient Health Record ---
Author Organization [facility] Address [address] [place] [address] Care Team Providers Care Engine Turner Name Role Phone CLIFF LINTON Primary Care Provider Ana Madsen Unavailable [phone] ALLERGIES Allergen (clinical drug ingredient) Drug/Non Drug [...] malignant neoplasm of colon (Z12.11) Active confirmed 616805511 Problem Preprocedural examination (Z01.818) Active confirmed [id number] Problem Constipation, unspecified constipation type (K59.00) Active confirmed 81534939 Problem Nausea with vomiting, unspecified (R11.2) Active confirmed Nausea and vomiting (77145038) PLAN OF TREATMENT No Information Insurance Providers Payer Name Payer Address Payer Phone Subscriber Number Group Number Insured Name Patient Relationship to Insured Coverage Start Date Coverage End Date [facility] [address] [place] [phone] [id number] ANA ORTIZ Self - patient is the insured MEDICAL (GENERAL) HISTORY Medical History History ICD Code Emphysema-mild Denies [place],DM,CVA,renal disease Arthritis Multiple myeloma 10/2019--sees Dr. Chacorta mendez for chemotherapy HTN Neg. colonoscopy in 08/2009 Hyperlipidemia Abdominal aortic aneurysm with treatment as below Surgical History Surgery Date(Month/Year) Lumbar surgery - Dr. De La Paz 2007 Endovascular graft placement at [place] for AAA--sees Dr. Galeano now 2009 Hernia repairs- left inguinal and umbili broderick
[2024-12-22 10:13] LABS: MANUAL DIFF FLAG NO
[2024-12-22 10:26] LABS: Basophils Absolute Auto 0.1 X10*3/uL (0.0-0.2); Basophils Percent Auto 0.8 % (0-2); Eosinophils Absolute Auto 0.1 X10*3/uL (0.0-0.4); Eosinophils Percent Auto 1.4 % (0-4); Hematocrit 44.8 % (42.0-52.0); Hemoglobin 14.9 g/dl (14.0-18.0); Imm Gran Abs Auto 0.03 X10*3/uL (0.00-0.03); Imm Gran Pct Auto 0.4 % (0.0-0.4); Lymphocytes Absolute Auto 1.5 X10*3/uL (1.2-4.9); Lymphocytes Percent Auto 21.4 % (20-40); Mean Corpuscular HGB Conc 33.3 g/dl (31.0-36.0); Mean Corpuscular Hemoglobin 33.1 pg (27.0-33.0); Mean Corpuscular Volume 99.6 fL (80.0-98.0); Mean Platelet Volume 11.4 fL (9.4-12.4); Monocytes Absolute Auto 0.8 X10*3/uL (0.1-1.2); Monocytes Percent Auto 11.3 % (2-11); Neutrophils Absolute Auto 4.6 x10*3/uL (2.0-8.3); Neutrophils Percent Auto 64.7 % (45-73); Platelet Count 202 X10*3/uL (160-400); Red Cell Distribution Width 13.7 % (11.0-16.0); White Blood Count 7.2 X10*3/uL (4.8-10.8)
[2024-12-22 10:39] LABS: Alanine Aminotransferase 18 U/L (0-40); Albumin Level 4.4 g/dL (3.5-5.0); Alkaline Phosphatase 81 U/L (39-117); Anion Gap 13 (12-20); Aspartate Amino Transferase 21 U/L (5-37); Bilirubin Total 0.8 mg/dL (0.0-1.0); Blood Urea Nitrogen 20 mg/dL (9-16); Calcium 9.8 mg/dL (8.4-10.2); Carbon Dioxide 28 mmol/L (22-29); Chloride 103 mmol/L (96-108); Estimated Glomerular Filt Rate > 60; Glucose Random 103 mg/dL (60-115); Potassium 3.5 mmol/L (3.3-5.1); Sodium 140 mmol/L (135-145); Total Protein 6.5 g/dL (6.5-8.0)
== END 2024-12-22 08:29 | disposition home or self-care (01) ==
LOC: HO.HMGCLDS 08:28
PROVIDERS: PCP Nurse Practitioner Family; Visit Provider Internal Medicine Medical Oncology
DX: C90.00 Multiple myeloma not having achieved remission (principal)
CPT/HCPCS: 36415; 80053; 85025

== ENCOUNTER 2025-01-13 12:12 | Outpatient (AMB) | payer MEDICARE, SELFPAY ==
[2025-01-13 12:30] VITALS: BMI 24.9
--- NOTE | 2025-01-13 12:30 | A.OFFVIS_ITS ---
Vital Signs 01/13/25 12:30 Height 5 ft 8 in Weight 164 lb BMI 24.9 Intake Visit Reasons: OV - F/u RT hip pain Intake Note: Hussein is a 79 year old male who presents today for a follow up of his Right Hip Greater Trochanter Bursitis & OA. At his last visit on 10/27/24 the right hip bursa was injected. Patient reports today injection provided relief however he is still having trouble in the morning. Patient states he purchased a cane he is using only when needed. Patient has a new onset of localized mid low back pain that worsens when lifting. Patient states he is taking Ibuprofen PRN with relief of pain. Allergies No Known Allergies Allergy (Verified 01/13/25 12:40) HPI HPI OV - F/u RT hip pain: Details: Hussein is a 79 year old male who presents today for a follow up of his Right Hip Greater Trochanter Bursitis & OA. At his last visit on 10/27/24 the right hip bursa was injected. Patient reports today injection provided relief however he is still having trouble in the morning. Patient states he purchased a cane he is using only when needed. Patient has a new onset of localized mid low back pain that worsens when lifting. Patient states he is taking Ibuprofen PRN with relief of pain. [facility] Medical History Pneumonia Statin intolerance HTN (hypertension) AAA (abdominal aortic aneurysm) Vitamin D deficiency Subclinical hyperthyroidism Multinodular thyroid Pancytopenia Leukopenia Multiple myeloma Surgical History Hx of hernia repair (07/08/18) History of bone marrow biopsy Hx of tooth extraction History of back surgery Hx of umbilical hernia repair (06/28/13) History of AAA (abdominal aortic aneurysm) repair Family History Father CVD (cardiovascular disease) AAA (abdominal aortic aneurysm) Mother Stomach cancer Social History Household Members: Spouse Housing: House Are you a primary medicare biller to a significant other at home: No Do you presently have visiting nurse or other home services: No Alcohol intake: former Comment: Patient refuses bed alarm Patient Tobacco Use Status: Former Tobacco user Years Smoked: 38 e-Cigarette/Vaping Use: Never Used Second Hand Smoke Exposure: No Special tiesha needs: No Agree to transfusion: Yes Advance Directives Date on File: 01/11/21 service: Yes Current occupational status: employed and retired Cognitive needs: No Hearing needs: No Vision needs: No Physical Exam Vital Signs: BMI result Body Mass Index 24.9 Extrem Other: On exam Hussein has Trendelenburg gait with mildly positive impingement test and minimal tenderness to palpation over the right greater trochanter. Assessment & Plan Assessment & Plan (1) Greater trochanteric bursitis of right hip: Code(s): M70.61 - Trochanteric bursitis, right hip Category: Medical Plan: Doing well with minimal pain. Minimal gait disturbance. Follow up PRN. Coding Level of Care Code Est Pt Level 3 (10714) Diagnoses Greater trochanteric bursitis of right hip M70.61
--- OUTSIDE RECORDS SUMMARY | 2025-01-13 13:56 | XMS_ITS | Patient Health Record ---
Author Organization [facility] Address [address] [place] [address] Care Team Providers Care Parking Line Painter Name Role Phone CLIFF LINTON Primary Care Provider Ana Madsen Unavailable [phone] Allergies Allergen (clinical drug ingredient) Drug/Non Drug Allergy documented on EMR Reaction Allergy Type Onset Date Status oxycodone oxycodone (uncoded) n/v severe Allergy Active Reason For Referral No Information Medications Medication SIG (Take, Route, Frequency, Duration) Notes [...] MG as directed Intravenous weekly chemo Active Immunizations Vaccine Route Administration Date Status Comme nts Influenza Unknown 07/10/2021 Administered Influenza Unknown 05/04/2020 Refused Social History Tobacco Use: Social History Observation Description Date Details (start date - stop date) Former Smoker NA - NA Tobacco Use/Smoking Question Answer Notes Patient is a former smoker When did you stop smoking? 2009 How long has it been since you last smoked? > 10 years Alcohol Screen Question Answer Notes Did you have a drink containing alcohol in the p ast year? No Points 0 Interpretation Negative Section Notes: Nonsmoker; no sig alcohol Nonsmoker; no sig alcohol Problems Problem Type SNOMED Code ICD Code Onset Dates Problem Status W/U Status Risk Notes Problem [id number] Encounter for screening for malignant neoplasm of colon (Z12.11) Active confirmed Problem Nausea and vomiting (50277618) Nausea with vomiting, unspecified (R11.2) Active confirmed Problem [id number] Preprocedural examination (Z01.818) Active confirmed Problem 64650242 Constipation, unspecified constipation type (K59.00) Active confirmed Plan Of Treatment No Information Insurance Providers Payer Name Payer Address Payer Phone Subscriber Number Group Number Insured Name Patient Relationship to Insured Coverage Start Date Coverage End Date [facility] [address] [place] [phone] [id number] ANA ORTIZ Self - patient is the insured Medical (General) History Medical History History ICD Code Emphysema-mild Denies [place],DM,CVA,renal disease Arthritis Multiple myeloma 10/2019--sees Dr. Chacorta mendez for chemotherapy HTN Neg. colonoscopy in 08/2009 Hyperlipidemia Abdominal aortic aneurysm with treatment as below Surgical History Surgery Date(Month/Year) Lumbar surgery - Dr. De La Paz 2007 [place] [facility] [place]se[place] Dr. Galeano now 2009 Hernia repairs- left inguinal and umbili broderick
--- OUTSIDE RECORDS SUMMARY | 2025-01-13 13:56 | XMS_ITS | Clinical Summary ---
Author Organization [address] Address [address] [place] [address] Phone Care Team Providers Care Process Expert Name Role Phone Tho Cruz NP Primary [...] Shingrix (RZV) 2 Dose Standard Series) 1996 Pneumococcal Vaccine (50+ ye ars) (1 of 1 - PCV) 2011 RSV Discussion (1 - 1-dose 7 5+ series) 2021 Diabetes screening 05/07/2024 05/07/2021 Influenza vaccine 06/09/2024 Covid-19 vaccine series ( - season) 2024 Meningococcal Vaccine Aged Out No [...] EDT [facility] eGFR (-NEPALESE) >60 >60 mL/min/1. 73m2 05/07/2021 3:12 AM EDT [facility] eGFR (NON -Peruvian) >60 >60 mL/min/1. 73m2 05/07/2021 3:12 AM [...] - 145 mmol/L 05/07/2021 3:12 AM EDT [facility] Potassium 3.1(L) 3.5 - 5.1 mmol/L 05/07/2021 3:12 AM EDT [facility] Chloride 104 98 - 107 mmol/L 05/07/2021 3:12 AM EDT [facility] CO2 26 21 - 32 mmol/L 05/07/2021 3:12 AM EDT [facility] Anion Gap 7 5 - 15 mmol/L 05/07/2021 3:12 AM EDT [facility] Calcium 8.5 8.5 - 10.1 mg/dL 05/07/2021 3:12 AM T [facility] Blood Venipuncture / Unknown 05/07/2021 2:40 AM EDT 05/07/2021 2:44 AM EDT us Vishnu Fontanez MD LAB BLOOD ORDERABLES Fin al Result [facility] [address] [place] [address] from Last 3 Months or Most Recently Relevant to Health Maintenance Insurance [facility]IC[facility] MEDICARE [facility]NAGED [facility] [place] Care Teams Process Expert Relationship Specialty Start Date End Date Tho Cruz NP [address] [facility] [place] [address] PCP - General Family Medicine 05/07/21
== END 2025-01-13 14:11 | disposition home or self-care (01) ==
PROVIDERS: PCP Nurse Practitioner Family; Visit Provider Orthopaedic Surgery
DX: M70.61 Trochanteric bursitis, right hip (principal)
CPT/HCPCS: 99213

== ENCOUNTER → 2025-01-13 12:12 | Outpatient (BNVA) | payer MEDICARE, SELFPAY | PROVIDERS: PCP Nurse Practitioner Family; Visit Provider Orthopaedic Surgery | DX: M16.11 Unilateral primary osteoarthritis, right hip (principal); M70.61 Trochanteric bursitis, right hip | CPT/HCPCS: 99212 ==

== ENCOUNTER → 2025-01-18 08:01 | Outpatient (REF) | payer MEDICARE, SELFPAY ==
--- NOTE | 2025-01-18 08:05 | CA_ITS ---
Transthoracic Echocardiogram Patient (Last, First, Middle): Hussein Castellano D Gender: Male Date of : 1945 Age: 79 Procedure Date: 01/18/2025 Procedure Type: Transthoracic Echocardiogram Location: OP Height: 172.72 cm Weight: 77.11 kg BSA: 1.91 m2 Heart Rate: bpm BP: 128 / 68 mmHg Keyboard Specialist: TO Referring MD: Екатерина Beach MD Symptoms: myeloma, on chemo, to determine EF Study Quality: Adequate ECG Rhythm: Sinus with PACs Conclusions: - The left ventricular systolic function is mildly decreased. The calculated ejection fraction is 49% by biplane method. - There is moderate calcification of the aortic valve. There is mild aortic valve stenosis. - There is mild dilatation of the ascending aorta measuring 4.10 cm. Findings Left Ventricle Normal left ventricular cavity size. The left ventricular systolic function is mildly decreased. The calculated ejection fraction is 49% by biplane method. There is mild global hypokinesis. Focal hypertrophy of the basal septum. LV peak GLS -15.9%. Right Ventricle Mildly increased right ventricular cavity size. There is normal right ventricular systolic function. Atria Mild biatrial enlargement. Aortic Valve There is moderate calcification of the aortic valve. There is mild aortic valve stenosis. There is trace (trivial) aortic valve regurgitation. Mitral Valve There is mild anterior mitral leaflet thickening. There is mild mitral annular calcification. There is mild mitral valve regurgitation. There is no mitral valve stenosis. Pulmonic Valve There is trace pulmonic valve regurgitation. Tricuspid Valve There is trace tricuspid valve regurgitation. There is no evidence of pulmonary hypertension. Great Vessels There is mild dilatation of the ascending aorta measuring 4.10 cm. Venous The inferior vena cava is normal in size and collapses greater than 50% with inspiration. Pericardium/Pleural There is no evidence of pericardial effusion. Prior Study Comparison No significant change compared to prior study dated: 08/09/2024. Measurements 2D Linear Measurements IVSd: 1.28 0.6-0.9/0.6-1.0 cm LVIDd: 4.58 3.9-5.3/4.2-5.9 cm LVIDd Index: 2.40 2.4-3.2/2.2-3.1 cm/m2 LVIDs: 3.29 2.0-3.6 cm LVPWd: 0.75 0.7-1.1 cm LA Diam: 3.80 2.7-3.8/3.0-4.0 cm LAIDs Index: 1.99 1.5-2.3 cm/m2 LV Mass: 200.85 67-162/88-224 g LV Mass Index: 105.16 43-95/49-115 g/m2 LVOT Diam: 2.60 3.0+(-)1.3 cm 2D Systolic Function EF 4C: 48.40 >55% EF 2C: 47.50 >55% EF BiP: 48.90 >55% Mitral Valve MV VTI: 0.27 MV Pk Khang: 0.78 MV Mn Khang: 0.44 MV Pk Grad: 2.00 MV Mn Grad: 1.00 MV Pk E: 0.44 MV PK A: 0.50 MV Decel Time: 333.00 E/A: 0.90 E'Lateral: 3.08 E'Medial: 2.83 E/E' Med: 15.60 E/E' Lat: 14.40 PHT: 98.00 MVA PHT: 2.24 MVA Continuity: 3.25 Decel Banner: 1.33 Aortic Valve AoV Pk Khang: 2.21 AoV Mn Khang: 1.68 AoV VTI: 0.53 AoV Pk Grad: 20.00 Aov Mn Grad: 12.00 JULIAN Cont.VTI: 1.68 LVOT LVOT Pk Khang: 0.72 LVOT Mn Khang: 0.49 LVOT VTI: 0.17 LVOT Pk Grad: 2.00 LVOT Mn Grad: 1.00 LVOT Diam: 2.60 LVOT Area: 5.31 Diastolic Function MV Pk E: 0.44 MV Pk A: 0.50 E/A: 0.90 E'Medial: 2.83 E/E' Med: 15.60 E' Laterial: 3.08 E/E' Lat: 14.40 Right Ventricle TAPSE (mm): 20.30 TVS' Khang: 12.60 Tricuspid Valve RA Press: 3.00 Great Vessels Aorta Sinus of Valsalva: 3.93 2.0-3.[address] Ridge: 3.23 1.7-3.4 cm Ao Asc: 4.10 2.1-3.4 cm Updated in Other Vendor System with Status of Final Fer Allen MD electronically signed on 01/19/2025 10:39:47 AM with status of Final
--- OUTSIDE RECORDS SUMMARY | 2025-01-18 08:06 | XMS_ITS | Patient Health Record ---
Author Organization [facility] Address [address] [place] [address] Care Team Providers Care Abstract Clerk Name Role Phone CLIFF LINTON Primary Care Provider Ana Madsen Unavailable [phone] Allergies Allergen (clinical drug ingredient) Drug/Non Drug [...] Problem Status W/U Status Risk Notes Problem [id number] Encounter for screening for malignant neoplasm of colon (Z12.11) Active confirmed Problem Nausea and vomiting (89462472) Nausea with vomiting, unspecified (R11.2) Active confirmed Problem [id number] Preprocedural examination (Z01.818) Active confirmed Problem 53946757 Constipation, unspecified constipation type (K59.00) Active confirmed Plan Of Treatment No Information Insurance Providers Payer Name Payer Address Payer Phone Subscriber Number Group Number Insured Name Patient Relationship to Insured Coverage Start Date Coverage End Date [facility] [address] [place] [phone] [id number] ANA ORTIZ Self - patient is the insured Medical (General) History Medical History History ICD Code Emphysema-mild Denies [place],DM,CVA,renal disease Arthritis Multiple myeloma 10/2019--sees Dr. Chacorta mendez for chemotherapy HTN Neg. colonoscopy in 08/2009 Hyperlipidemia Abdominal aortic aneurysm with treatment as below Surgical History Surgery Date(Month/Year) Lumbar surgery - Dr. De La Paz 2007 Endovascular graft placement at [facility] [place] for AAA--sees Dr. Galeano now 2009 Hernia repairs- left inguinal and umbili broderick
--- OUTSIDE RECORDS SUMMARY | 2025-01-18 08:06 | XMS_ITS ---
Author Name [facility] Organization Unknown Care Team Organization Name Specialty Phone Email Start Date End [facility] 05/07/2021 05/07/20 21
== END ==
LOC: HO.CARD 08:01
PROVIDERS: PCP Nurse Practitioner Family; Visit Provider Internal Medicine Medical Oncology
DX: C90.00 Multiple myeloma not having achieved remission (principal)
CPT/HCPCS: 93306

== ENCOUNTER → 2025-01-18 08:05 | Outpatient (BNV) | payer MEDICARE, SELFPAY | PROVIDERS: PCP Nurse Practitioner Family; Visit Provider Internal Medicine | DX: I42.2 Other hypertrophic cardiomyopathy (principal); I35.2 Nonrheumatic aortic (valve) stenosis with insufficiency; I34.0 Nonrheumatic mitral (valve) insufficiency; Z51.81 Encounter for therapeutic drug level monitoring | CPT/HCPCS: 93306; 93356 ==

== ENCOUNTER 2025-01-19 08:16 | Outpatient (REF) | payer MEDICARE, SELFPAY ==
--- OUTSIDE RECORDS SUMMARY | 2025-01-19 08:38 | XMS_ITS | Patient Health Record ---
Author Organization [facility] Address [address] [place] [address] Care Team Providers Care Store Stock Help Name Role Phone CLIFF LINTON Primary Care Provider Ana Madsen Unavailable [phone] Allergies Allergen (clinical drug ingredient) Drug/Non Drug [...] Problem Status W/U Status Risk Notes Problem 018126710 Encounter for screening for malignant neoplasm of colon (Z12.11) Active confirmed Problem Nausea and vomiting (03443760) Nausea with vomiting, unspecified (R11.2) Active confirmed Problem 895943410331721 Preprocedural examination (Z01.818) Active confirmed Problem 18136494 Constipation, unspecified constipation type (K59.00) Active confirmed Plan Of Treatment No Information Insurance Providers Payer Name Payer Address Payer Phone Subscriber Number Group Number Insured Name Patient Relationship to Insured Coverage Start Date Coverage End Date [facility] [address] [place] [phone] [id number] ANA ORTIZ Self - patient is the insured Medical (General) History Medical History History ICD Code Emphysema-mild Denies [place],DM,CVA,renal disease Arthritis Multiple myeloma 10/2019--sees Dr. Chacorta mendez for chemotherapy HTN Neg. colonoscopy in 08/2009 Hyperlipidemia Abdominal aortic aneurysm with treatment as below Surgical History Surgery Date(Month/Year) Lumbar surgery - Dr. De La Paz 2007 [place] [facility] [place]sees Dr. Galeano now 2009 Hernia repairs- left inguinal and umbili broderick
[2025-01-19 10:07] LABS: MANUAL DIFF FLAG NO
[2025-01-19 10:10] LABS: Basophils Percent Auto 0.7 % (0-2); Eosinophils Absolute Auto 0.1 X10*3/uL (0.0-0.4); Eosinophils Percent Auto 1.2 % (0-4); Hematocrit 43.7 % (42.0-52.0); Imm Gran Abs Auto 0.02 X10*3/uL (0.00-0.03); Imm Gran Pct Auto 0.3 % (0.0-0.4); Lymphocytes Absolute Auto 1.1 X10*3/uL (1.2-4.9); Lymphocytes Percent Auto 18.7 % (20-40); Mean Corpuscular HGB Conc 34.3 g/dl (31.0-36.0); Mean Corpuscular Hemoglobin 33.5 pg (27.0-33.0); Mean Corpuscular Volume 97.5 fL (80.0-98.0); Mean Platelet Volume 11.2 fL (9.4-12.4); Monocytes Absolute Auto 0.6 X10*3/uL (0.1-1.2); Monocytes Percent Auto 10.5 % (2-11); Neutrophils Absolute Auto 4.1 x10*3/uL (2.0-8.3); Neutrophils Percent Auto 68.6 % (45-73); Platelet Count 169 X10*3/uL (160-400); Red Blood Count 4.48 X10*6/uL (4.60-5.80); Red Cell Distribution Width 13.4 % (11.0-16.0)
[2025-01-19 10:37] LABS: Alanine Aminotransferase 19 U/L (0-40); Albumin Level 4.2 g/dL (3.5-5.0); Alkaline Phosphatase 82 U/L (39-117); Anion Gap 8 (12-20); Aspartate Amino Transferase 21 U/L (5-37); Bilirubin Total 0.9 mg/dL (0.0-1.0); Blood Urea Nitrogen 15 mg/dL (9-16); Calcium 9.1 mg/dL (8.4-10.2); Carbon Dioxide 31 mmol/L (22-29); Chloride 106 mmol/L (96-108); Estimated Glomerular Filt Rate > 60; Glucose Random 95 mg/dL (60-115); Potassium 3.5 mmol/L (3.3-5.1); Sodium 141 mmol/L (135-145); Total Protein 6.3 g/dL (6.5-8.0)
[2025-01-19 10:58] LABS: Prostate Specific Antigen Scr 3.36 ng/mL (<0.05-4.0)
[2025-01-20 14:04] LABS: Kappa Light Chain, Free Serum 1.1 mg/L (3.3-19.4); Kappa/Lambda Lt Ch Free Ratio 0.73 (0.26-1.65); Lambda Light Chain, Free Serum 1.5 mg/L (5.7-26.3)
[2025-01-21 01:39] LABS: IgA 6 mg/dL (70-320); IgG 247 mg/dL (600-1540); IgM 5 mg/dL (50-300)
== END 2025-01-19 08:17 | disposition home or self-care (01) ==
LOC: HO.HMGCLDS 08:16
PROVIDERS: PCP Nurse Practitioner Family; Visit Provider Internal Medicine Medical Oncology
DX: Z12.5 Encounter for screening for malignant neoplasm of prostate (principal); C90.00 Multiple myeloma not having achieved remission; N40.2 Nodular prostate without lower urinary tract symptoms
CPT/HCPCS: 36415; 80053; 82784; 83521; 84153; 85025

== ENCOUNTER 2025-01-24 15:59 | Outpatient (AMB) | payer MEDICARE, SELFPAY ==
[2025-01-24 16:03] VITALS: BP 128/74; PULSE 97; TEMP 36.5; O2SAT 97; BMI 25.2
--- NOTE | 2025-01-24 16:03 | MHC.OFFWIV ---
Intake Vital Signs 01/24/25 16:03 Height 5 ft 8 in Weight 166 lb BMI 25.2 BP 128/74 Blood Pressure Location Lt brachial Position Sitting Pulse 97 Pulse Source Pulse Oximeter Temp 97.7 F Temp Source Oral Pulse Oximetry (%) 97 Oxygen Delivery Method Room Air Intake Visit Reasons: EP Burn on both hands thumb, ring finger, & middle Intake Note: Pt presents to the office today for c/o burn on both hands. Pt states this happened about 45 minutes ago when he was charging a food science technician battery and his wedding ring became hot and burned his fingers. Patient Tobacco Use Status: Former Tobacco user Allergies No Known Allergies Allergy (Verified 01/24/25 16:05) HPI HPI Comments History of Present Illness Details This is a 79-year-old male with a past medical history of multiple myeloma presenting for evaluation of boss to his hands bilaterally. Patient states he was charging a food science technician battery today which was connected to the charge or when the electricity suddenly arced to his wedding band that was located on his right 4th digit. The patient then used his left thumb and middle finger to remove the very hot wedding band from his right ring finger. Patient was able to clean his hands with soap and water prior to coming to urgent care. Patient denies having any visual changes, chest pain, shortness for breath, nausea, vomiting or other systemic complaints. Patient's last tetanus immunization was 3 years ago. [facility] Medical History Pneumonia Statin intolerance HTN (hypertension) AAA (abdominal aortic aneurysm) Vitamin D deficiency Subclinical hyperthyroidism Multinodular thyroid Pancytopenia Leukopenia Multiple myeloma Surgical History Hx of hernia repair (07/08/18) History of bone marrow biopsy Hx of tooth extraction History of back surgery Hx of umbilical hernia repair (06/28/13) History of AAA (abdominal aortic aneurysm) repair Family History Father CVD (cardiovascular disease) AAA (abdominal aortic aneurysm) Mother Stomach cancer Social History Household Members: Spouse Housing: House Are you a primary home health care coordinator to a significant other at home: No Do you presently have visiting nurse or other home services: No Alcohol intake: former Comment: Patient refuses bed alarm Patient Tobacco Use Status: Former Tobacco user Years Smoked: 38 e-Cigarette/Vaping Use: Never Used Second Hand Smoke Exposure: No Special tiesha needs: No Agree to transfusion: Yes Advance Directives Date on File: 01/11/21 service: Yes Current occupational status: employed and retired Cognitive needs: No Hearing needs: No Vision needs: No Review of Systems Const All systems reviewed & are unremarkable except as noted in HPI and below Denies fatigue and Denies fever(s) Eyes Reports no additional complaints ENT Reports no additional complaints Card Denies chest pain and Denies dyspnea Resp Denies dyspnea GI Denies nausea and Denies vomiting Musc Details: pain in right 3rd and 4th digits, left 1st and 3rd digits Skin/Breast Details: boss of multiple fingers of the right hand and left hand Reports lesions Neuro Reports no additional complaints Psych Reports no additional complaints Endo Denies fatigue Tacho/Lymph Reports no additional complaints Physical Exam Patient is afebrile. Const General: cooperative, healthy appearing, comfortable, no acute distress, well developed, alert, awake and Physically active Nutritional Appearance: average body habitus Orientation/consciousness: patient oriented x3 Limitations: no limitations Skin Other: 1.5cm x 1.0cm blister located on the proximal phalanx of the right 4th digit adjacent to the 4th/5th webspace with surrounding erythema; there is erythema at the base of the right 5th digit that is tender to examination and minimal erythema of the right 3rd proximal phalanx. There is hypopigmented excoriation on the palmar surface of the left 1st digit and bright erythema on the palmar surface of the left 3rd distal phalanx. Neuro Other: sensation intact throughout all digits of the hands bilaterally. General: patient oriented x3 Extrem Other: ROM intact all digits of the hands bilaterally. Psych Appearance: grossly normal Mental Status: mental status grossly normal Insight: Good insight present (Psych) Judgement: Good judgement present (Psych) Assessment & Plan Assessment & Plan (1) Burn of finger or finger nail without thumb, second degree: Comment: right 4th digit is dressed with bacitracin, nonstick gauze and Kerlix; right 3rd and 5th digits dressed with bacitracin and bandaids Code(s): T23.229A - Burn of second degree of unspecified single finger (nail) except thumb, initial encounter Qualifiers: Encounter type: initial encounter Laterality: right Qualified Code(s): T23.221A - Burn of second degree of single right finger (nail) except thumb, initial encounter Plan: Patient is instructed to keep the bandages on for 24 hours then reapply bacitracin after cleaning thoroughly with soap and water. Patient is educated about the concern for infection and will return for any signs of infection or wound check if he is uncertain about the appearance when performing dressing changes. (2) Burn of finger and thumb of left hand, first degree: Comment: No advanced dressings are warranted at this time. Code(s): T23.142A - Burn of first degree of multiple left fingers (nail), including thumb, initial encounter Qualifiers: Encounter type: initial encounter Qualified Code(s): T23.142A - Burn of first degree of multiple left fingers (nail), including thumb, initial encounter Plan: Patient will keep the boss of his left hand clean with soap and water daily and monitor for signs of infection. Coding Level of Care Code Est Pt Level 4 (89662) Diagnoses Partial thickness burn of finger of right hand excluding thumb, initial encounter T23.221A Encounter type: initial encounter Laterality: right Superficial burn of multiple digits of left hand including superficial burn of thumb, initial encounter T23.142A Encounter type: initial encounter Time Spent (min) 35
--- OUTSIDE RECORDS SUMMARY | 2025-01-24 18:39 | XMS_ITS | Clinical Summary ---
Author Organization [address] Address [address] [place] [address] Phone Care Team Providers Care Side Laster Tack Name Role Phone Tho Cruz NP Primary [...] EDT [facility] eGFR (-[place]OV[place]) >60 >60 mL/min/1. 73m2 05/07/2021 3:12 AM EDT [facility] eGFR (NON -Tuvaluan) >60 >60 mL/min/1. 73m2 05/07/2021 3:12 AM [...] - 145 mmol/L 05/07/2021 3:12 AM EDT [facility] Potassium 3.1(L) 3.5 - 5.1 mmol/L 05/07/2021 3:12 AM EDT [facility] Chloride 104 98 - 107 mmol/L 05/07/2021 3:12 AM EDT [facility] CO2 26 21 - 32 mmol/L 05/07/2021 3:12 AM EDT [facility] Anion Gap 7 5 - 15 mmol/L 05/07/2021 3:12 AM EDT [facility] Calcium 8.5 8.5 - 10.1 mg/dL 05/07/2021 3:12 AM T [facility] Blood Venipuncture / Unknown 05/07/2021 2:40 AM EDT 05/07/2021 2:44 AM EDT us Vishnu Fontanez MD LAB BLOOD ORDERABLES Fin al Result [facility] [address] [place] [address] from Last 3 Months or Most Recently Relevant to Health Maintenance Insurance [facility] Care Teams Side Laster Tack Relationship Specialty Start Date End Date Tho Cruz NP 1960 [facility] [place] [address] PCP - General Family Medicine 05/07/21
--- OUTSIDE RECORDS SUMMARY | 2025-01-24 18:39 | XMS_ITS | Patient Health Record ---
Author Organization [facility] Address [address] [place] [address] Care Team Providers Care Firewall Security Engineer Name Role Phone CLIFF LINTON Primary Care Provider Ana Madsen Unavailable [phone] Allergies Allergen (clinical drug ingredient) Drug/Non Drug [...] Problem Status W/U Status Risk Notes Problem 596573603 Encounter for screening for malignant neoplasm of colon (Z12.11) Active confirmed Problem Nausea and vomiting (99436719) Nausea with vomiting, unspecified (R11.2) Active confirmed Problem [id number] Preprocedural examination (Z01.818) Active confirmed Problem 85896779 Constipation, unspecified constipation type (K59.00) Active confirmed Plan Of Treatment No Information Insurance Providers Payer Name Payer Address Payer Phone Subscriber Number Group Number Insured Name Patient Relationship to Insured Coverage Start Date Coverage End Date [facility] [address] [place] [address] [phone] [id number] AAN ORTIZ Self - patient is the insured Medical (General) History Medical History History ICD Code Emphysema-mild Denies [place],DM,CVA,renal disease Arthritis Multiple myeloma 10/2019--sees Dr. Chacorta mendez for chemotherapy HTN Neg. colonoscopy in 08/2009 Hyperlipidemia Abdominal aortic aneurysm with treatment as below Surgical History Surgery Date(Month/Year) Lumbar surgery - Dr. De La Paz 2007 Endovascular graft placement at [facility] for AAA--sees Dr. Galeano now 2009 Hernia repairs- left inguinal and umbili broderick
== END 2025-01-24 16:54 | disposition home or self-care (01) ==
PROVIDERS: PCP Nurse Practitioner Family; Visit Provider Physician Assistant
DX: T23.221A Burn of second degree of single right finger (nail) except thumb, initial encounter (principal); T23.142A Burn of first degree of multiple left fingers (nail), including thumb, initial encounter

== ENCOUNTER → 2025-01-24 15:59 | Outpatient (BNVA) | payer MEDICARE, SELFPAY | PROVIDERS: PCP Nurse Practitioner Family; Visit Provider Physician Assistant | DX: T23.221A Burn of second degree of single right finger (nail) except thumb, initial encounter (principal); T23.142A Burn of first degree of multiple left fingers (nail), including thumb, initial encounter; W86.8XXA Exposure to other electric current, initial encounter; Y93.9 Activity, unspecified; Y92.9 Unspecified place or not applicable; Y99.9 Unspecified external cause status | CPT/HCPCS: 99212 ==

== ENCOUNTER 2025-02-02 10:59 | Outpatient (REF) | payer MEDICARE, SELFPAY ==
[2025-02-02 13:08] LABS: MANUAL DIFF FLAG NO
[2025-02-02 13:23] LABS: Basophils Absolute Auto 0.1 X10*3/uL (0.0-0.2); Basophils Percent Auto 0.8 % (0-2); Eosinophils Absolute Auto 0.1 X10*3/uL (0.0-0.4); Eosinophils Percent Auto 0.8 % (0-4); Hematocrit 44.5 % (42.0-52.0); Hemoglobin 14.7 g/dl (14.0-18.0); Imm Gran Abs Auto 0.03 X10*3/uL (0.00-0.03); Imm Gran Pct Auto 0.5 % (0.0-0.4); Lymphocytes Absolute Auto 1.2 X10*3/uL (1.2-4.9); Lymphocytes Percent Auto 19.1 % (20-40); Mean Corpuscular Hemoglobin 32.9 pg (27.0-33.0); Mean Corpuscular Volume 99.6 fL (80.0-98.0); Mean Platelet Volume 10.9 fL (9.4-12.4); Monocytes Absolute Auto 0.6 X10*3/uL (0.1-1.2); Monocytes Percent Auto 9.9 % (2-11); Neutrophils Absolute Auto 4.2 x10*3/uL (2.0-8.3); Neutrophils Percent Auto 68.9 % (45-73); Platelet Count 171 X10*3/uL (160-400); Red Blood Count 4.47 X10*6/uL (4.60-5.80); Red Cell Distribution Width 13.4 % (11.0-16.0); White Blood Count 6.1 X10*3/uL (4.8-10.8)
[2025-02-02 14:02] LABS: Alanine Aminotransferase 17 U/L (0-40); Albumin Level 4.3 g/dL (3.5-5.0); Anion Gap 10 (12-20); Aspartate Amino Transferase 23 U/L (5-37); Bilirubin Total 1.1 mg/dL (0.0-1.0); Blood Urea Nitrogen 19 mg/dL (9-16); Calcium 9.5 mg/dL (8.4-10.2); Carbon Dioxide 29 mmol/L (22-29); Chloride 106 mmol/L (96-108); Estimated Glomerular Filt Rate > 60; Glucose Random 114 mg/dL (60-115); Potassium 4.1 mmol/L (3.3-5.1); Sodium 141 mmol/L (135-145); Total Protein 6.3 g/dL (6.5-8.0)
[2025-02-02 14:44] LABS: Alkaline Phosphatase 73 U/L (39-117)
[2025-02-05 01:23] LABS: IgA 5 mg/dL (70-320); IgG 285 mg/dL (600-1540); IgM <5 mg/dL (50-300)
[2025-02-07 11:08] LABS: Kappa Light Chain, Free Serum 0.8 mg/L (3.3-19.4); Kappa/Lambda Lt Ch Free Ratio 0.53 (0.26-1.65); Lambda Light Chain, Free Serum 1.5 mg/L (5.7-26.3)
== END 2025-02-02 11:00 | disposition home or self-care (01) ==
LOC: HO.HMGCLDS 10:59
PROVIDERS: PCP Nurse Practitioner Family; Visit Provider Internal Medicine Medical Oncology
DX: C90.00 Multiple myeloma not having achieved remission (principal)
CPT/HCPCS: 36415; 80053; 82784; 83521; 85025

== ENCOUNTER 2025-02-16 07:36 | Outpatient (REF) | payer MEDICARE, SELFPAY ==
--- OUTSIDE RECORDS SUMMARY | 2025-02-16 07:39 | XMS_ITS | Patient Health Record ---
Author Organization [facility] Address [address] [place] [address] Care Team Providers Care Slipper Maker Name Role Phone CLIFF LINTON Primary Care Provider Ana Madsen Unavailable [phone] Allergies Allergen (clinical drug ingredient) Drug/Non Drug [...] Problem Status W/U Status Risk Notes Problem [id number] Encounter for screening for malignant neoplasm of colon (Z12.11) Active confirmed Problem Nausea and vomiting (18553792) Nausea with vomiting, unspecified (R11.2) Active confirmed Problem [id number] Preprocedural examination (Z01.818) Active confirmed Problem 72811933 Constipation, unspecified constipation type (K59.00) Active confirmed Plan Of Treatment No Information Insurance Providers Payer Name Payer Address Payer Phone Subscriber Number Group Number Insured Name Patient Relationship to Insured Coverage Start Date Coverage End Date [facility] [address] [place] [address] [phone] [id number] ANA ORTIZ Self - patient is the insured Medical (General) History Medical History History ICD Code Emphysema-mild Denies [place],DM,CVA,renal disease Arthritis Multiple myeloma 10/2019--sees Dr. Chacorta mendez for chemotherapy HTN Neg. colonoscopy in 08/2009 Hyperlipidemia Abdominal aortic aneurysm with treatment as below Surgical History Surgery Date(Month/Year) Lumbar surgery - Dr. De La Paz 2007 [place] [facility] [place]se[place] Dr. Galeano now 2009 Hernia repairs- left inguinal and umbili broderick
--- OUTSIDE RECORDS SUMMARY | 2025-02-16 07:39 | XMS_ITS | Clinical Summary ---
Author Organization [address] Address [address] [place] [address] Phone Care Team Providers Care Yard Specialist Name Role Phone Tho Cruz NP Primary [...] 10,TDAP once) 1966 Lipid disorder screening 1986 Pneumococcal Vaccine (50+ ye ars) (1 of 1 - PCV) 1996 Shingles vaccine (Shingrix) (1 of 2 - Shingrix (RZV) 2 Dose Standard Series) 1996 RSV Immunization (1 - 1-dose 75+ series) 2021 Diabetes screening 05/07/2024 05/07/2021 Covid-19 vaccine series ( - 2023- season) 2024 Influenza vaccine 07/10/2025 Meningococcal Vaccine Aged Out No alexa quna eligible based on patient's age to complete [...] EDT [facility] eGFR (-HONDURAN) >60 >60 mL/min/1. 73m2 05/07/2021 3:12 AM EDT [facility] eGFR (NON -Estonian) >60 >60 mL/min/1. 73m2 05/07/2021 3:12 AM [...] - 145 mmol/L 05/07/2021 3:12 AM EDT [facility] Potassium 3.1(L) 3.5 - 5.1 mmol/L 05/07/2021 3:12 AM EDT [facility] Chloride 104 98 - 107 mmol/L 05/07/2021 3:12 AM EDT [facility] CO2 26 21 - 32 mmol/L 05/07/2021 3:12 AM EDT [facility] Anion Gap 7 5 - 15 mmol/L 05/07/2021 3:12 AM EDT [facility] Calcium 8.5 8.5 - 10.1 mg/dL 05/07/2021 3:12 AM T [facility] Blood Venipuncture / Unknown 05/07/2021 2:40 AM EDT 05/07/2021 2:44 AM EDT us Vishnu Fontanez MD LAB BLOOD ORDERABLES Fin al Result [facility] [address] [place] [address] from Last 3 Months or Most Recently Relevant to Health Maintenance Insurance MEDICARE [place] [facility] Care Teams Yard Specialist Relationship Specialty Start Date End Date Tho Cruz NP [address] [facility] [place] [address] PCP - General Family Medicine 05/07/21
[2025-02-16 10:11] LABS: MANUAL DIFF FLAG NO
[2025-02-16 10:19] LABS: Basophils Percent Auto 0.6 % (0-2); Eosinophils Absolute Auto 0.1 X10*3/uL (0.0-0.4); Eosinophils Percent Auto 1.9 % (0-4); Hematocrit 42.6 % (42.0-52.0); Hemoglobin 14.3 g/dl (14.0-18.0); Imm Gran Abs Auto 0.02 X10*3/uL (0.00-0.03); Imm Gran Pct Auto 0.4 % (0.0-0.4); Lymphocytes Absolute Auto 1.1 X10*3/uL (1.2-4.9); Lymphocytes Percent Auto 20.7 % (20-40); Mean Corpuscular HGB Conc 33.6 g/dl (31.0-36.0); Mean Corpuscular Hemoglobin 32.9 pg (27.0-33.0); Mean Corpuscular Volume 97.9 fL (80.0-98.0); Mean Platelet Volume 11.2 fL (9.4-12.4); Monocytes Absolute Auto 0.5 X10*3/uL (0.1-1.2); Monocytes Percent Auto 9.3 % (2-11); Neutrophils Absolute Auto 3.6 x10*3/uL (2.0-8.3); Neutrophils Percent Auto 67.1 % (45-73); Platelet Count 182 X10*3/uL (160-400); Red Blood Count 4.35 X10*6/uL (4.60-5.80); Red Cell Distribution Width 13.4 % (11.0-16.0); White Blood Count 5.4 X10*3/uL (4.8-10.8)
[2025-02-16 13:40] LABS: MANUAL DIFF FLAG NO
[2025-02-16 13:43] LABS: Basophils Percent Auto 0.6 % (0-2); Eosinophils Absolute Auto 0.1 X10*3/uL (0.0-0.4); Eosinophils Percent Auto 1.5 % (0-4); Hematocrit 43.8 % (42.0-52.0); Hemoglobin 14.6 g/dl (14.0-18.0); Imm Gran Abs Auto 0.02 X10*3/uL (0.00-0.03); Imm Gran Pct Auto 0.3 % (0.0-0.4); Lymphocytes Absolute Auto 1.5 X10*3/uL (1.2-4.9); Lymphocytes Percent Auto 22.4 % (20-40); Mean Corpuscular HGB Conc 33.3 g/dl (31.0-36.0); Mean Corpuscular Hemoglobin 32.9 pg (27.0-33.0); Mean Corpuscular Volume 98.6 fL (80.0-98.0); Mean Platelet Volume 10.8 fL (9.4-12.4); Monocytes Absolute Auto 0.6 X10*3/uL (0.1-1.2); Monocytes Percent Auto 8.3 % (2-11); Neutrophils Absolute Auto 4.4 x10*3/uL (2.0-8.3); Neutrophils Percent Auto 66.9 % (45-73); Platelet Count 195 X10*3/uL (160-400); Red Blood Count 4.44 X10*6/uL (4.60-5.80); Red Cell Distribution Width 13.5 % (11.0-16.0); White Blood Count 6.6 X10*3/uL (4.8-10.8)
[2025-02-16 14:16] LABS: Alanine Aminotransferase 18 U/L (0-40); Albumin Level 4.5 g/dL (3.5-5.0); Alkaline Phosphatase 66 U/L (39-117); Anion Gap 13 (12-20); Aspartate Amino Transferase 27 U/L (5-37); Bilirubin Total 1.1 mg/dL (0.0-1.0); Blood Urea Nitrogen 17 mg/dL (9-16); Calcium 9.6 mg/dL (8.4-10.2); Carbon Dioxide 28 mmol/L (22-29); Chloride 104 mmol/L (96-108); Estimated Glomerular Filt Rate > 60; Glucose Random 100 mg/dL (60-115); Potassium 4.3 mmol/L (3.3-5.1); Sodium 141 mmol/L (135-145); Total Protein 6.2 g/dL (6.5-8.0)
[2025-02-17 10:47] LABS: Bilirubin Direct 0.3 mg/dL (0.0-0.5)
[2025-02-17 12:07] LABS: Kappa/Lambda Lt Ch Free Ratio >0.67 (0.26-1.65); Lambda Light Chain, Free Serum <1.5 mg/L (5.7-26.3)
[2025-02-20 18:27] LABS: IgA 5 mg/dL (70-320); IgG 256 mg/dL (600-1540); IgM <5 mg/dL (50-300)
[2025-02-21 16:24] LABS: Kappa, Serum 58 mg/dL (176-443); Lambda, Serum 20 mg/dL (91-240)
== END 2025-02-16 07:37 | disposition home or self-care (01) ==
LOC: HO.HMGCLDS 07:36
PROVIDERS: PCP Nurse Practitioner Family; Visit Provider Internal Medicine Medical Oncology
DX: C90.00 Multiple myeloma not having achieved remission (principal)
CPT/HCPCS: 36415; 80053; 82248; 82784; 83521; 83883; 85025; 86334

== ENCOUNTER 2025-03-02 07:39 | Outpatient (REF) | payer MEDICARE, SELFPAY ==
--- OUTSIDE RECORDS SUMMARY | 2025-03-02 07:42 | XMS_ITS | Patient Health Record ---
Author Organization [facility] Address [address] [place] [address] Care Team Providers Care Glass Washer Name Role Phone CLIFF LINTON Primary Care Provider Ana Madsen Unavailable [phone] Allergies Allergen (clinical drug ingredient) Drug/Non Drug [...] Problem Status W/U Status Risk Notes Problem [id number] Encounter for screening for malignant neoplasm of colon (Z12.11) Active confirmed Problem Nausea and vomiting (85866301) Nausea with vomiting, unspecified (R11.2) Active confirmed Problem [id number] Preprocedural examination (Z01.818) Active confirmed Problem 63424175 Constipation, unspecified constipation type (K59.00) Active confirmed Plan Of Treatment No Information Insurance Providers Payer Name Payer Address Payer Phone Subscriber Number Group Number Insured Name Patient Relationship to Insured Coverage Start Date Coverage End Date [facility] [address] [place] [phone] [id number] ANA ORTIZ Self - patient is the insured Medical (General) History Medical History History ICD Code Emphysema-mild Denies [place],DM,CVA,renal disease Arthritis Multiple myeloma 10/2019--sees Dr. Chacorta mendez for chemotherapy HTN Neg. colonoscopy in 08/2009 Hyperlipidemia Abdominal aortic aneurysm with treatment as below Surgical History Surgery Date(Month/Year) Lumbar surgery - Dr. De La Paz 2007 [place]ovascular graft placement [place] [facility] [place]--sees Dr. Galeano now 2009 Hernia repairs- left inguinal and umbili broderick
--- OUTSIDE RECORDS SUMMARY | 2025-03-02 07:42 | XMS_ITS | Clinical Summary ---
Author Organization [address] Address [address] [place] [address] Phone Care Team Providers Care Leather Seasoner Name Role Phone Tho Cruz NP Primary [...] 07/10/2025 Meningococcal Vaccine Aged Out No alexa quan [...] EDT [facility] eGFR (-SINGAPOREAN) >60 >60 mL/min/1. 73m2 05/07/2021 3:12 AM EDT [facility] eGFR (NON -Citizen Of [place]) >60 >60 mL/min/1. 73m2 05/07/2021 3:12 AM [...] - 145 mmol/L 05/07/2021 3:12 AM EDT [facility] Potassium 3.1(L) 3.5 - 5.1 mmol/L 05/07/2021 3:12 AM EDT [facility] Chloride 104 98 - 107 mmol/L 05/07/2021 3:12 AM EDT [facility] CO2 26 21 - 32 mmol/L 05/07/2021 3:12 AM EDT [facility] Anion Gap 7 5 - 15 mmol/L 05/07/2021 3:12 AM EDT [facility] Calcium 8.5 8.5 - 10.1 mg/dL 05/07/2021 3:12 AM T [facility] Blood Venipuncture / Unknown 05/07/2021 2:40 AM EDT 05/07/2021 2:44 AM EDT us Vishnu Fontanez MD LAB BLOOD ORDERABLES Fin al Result [facility] [address] [place] [address] from Last 3 Months or Most Recently Relevant to Health Maintenance Insurance MEDICARE [place] [facility] [facility] Care Teams Leather Seasoner Relationship Specialty Start Date End Date Tho Cruz NP [address] [facility] [place] [address] PCP - General Family Medicine 05/07/21
[2025-03-02 10:32] LABS: MANUAL DIFF FLAG NO
[2025-03-02 10:45] LABS: Basophils Percent Auto 0.8 % (0-2); Eosinophils Absolute Auto 0.1 X10*3/uL (0.0-0.4); Hematocrit 41.5 % (42.0-52.0); Imm Gran Abs Auto 0.01 X10*3/uL (0.00-0.03); Imm Gran Pct Auto 0.2 % (0.0-0.4); Lymphocytes Percent Auto 18.6 % (20-40); Mean Corpuscular HGB Conc 33.7 g/dl (31.0-36.0); Mean Corpuscular Hemoglobin 33.3 pg (27.0-33.0); Mean Corpuscular Volume 98.8 fL (80.0-98.0); Mean Platelet Volume 11.4 fL (9.4-12.4); Monocytes Absolute Auto 0.4 X10*3/uL (0.1-1.2); Monocytes Percent Auto 8.5 % (2-11); Neutrophils Absolute Auto 3.7 x10*3/uL (2.0-8.3); Neutrophils Percent Auto 70.9 % (45-73); Platelet Count 165 X10*3/uL (160-400); Red Cell Distribution Width 13.6 % (11.0-16.0); White Blood Count 5.2 X10*3/uL (4.8-10.8)
[2025-03-02 11:08] LABS: Alanine Aminotransferase 14 U/L (0-40); Albumin Level 4.1 g/dL (3.5-5.0); Alkaline Phosphatase 66 U/L (39-117); Anion Gap 9 (12-20); Aspartate Amino Transferase 21 U/L (5-37); Bilirubin Total 0.8 mg/dL (0.0-1.0); Blood Urea Nitrogen 17 mg/dL (9-16); Calcium 9.2 mg/dL (8.4-10.2); Carbon Dioxide 30 mmol/L (22-29); Chloride 105 mmol/L (96-108); Estimated Glomerular Filt Rate > 60; Glucose Random 103 mg/dL (60-115); Potassium 3.4 mmol/L (3.3-5.1); Sodium 141 mmol/L (135-145); Total Protein 5.8 g/dL (6.5-8.0)
== END 2025-03-02 07:40 | disposition home or self-care (01) ==
LOC: HO.HMGCLDS 07:39
PROVIDERS: PCP Nurse Practitioner Family; Visit Provider Internal Medicine Medical Oncology
DX: C90.00 Multiple myeloma not having achieved remission (principal)
CPT/HCPCS: 36415; 80053; 85025

== ENCOUNTER 2025-03-20 08:05 | Outpatient (AMB) | payer MEDICARE, SELFPAY ==
--- OUTSIDE RECORDS SUMMARY | 2025-03-20 08:10 | XMS_ITS | Patient Health Record ---
Author Organization [facility] Address [address] [address] Care Team Providers Care Undercoater Name Role Phone CLIFF LINTON Primary Care Provider Ana Madsen Unavailable [phone] Allergies Allergen (clinical drug ingredient) Drug/Non Drug [...] Problem Status W/U Status Risk Notes Problem [id number] Encounter for screening for malignant neoplasm of colon (Z12.11) Active confirmed Problem Nausea and vomiting (50226014) Nausea with vomiting, unspecified (R11.2) Active confirmed Problem [id number] Preprocedural examination (Z01.818) Active confirmed Problem 44642908 Constipation, unspecified constipation type (K59.00) Active confirmed Plan Of Treatment No Information Insurance Providers Payer Name Payer Address Payer Phone Subscriber Number Group Number Insured Name Patient Relationship to Insured Coverage Start Date Coverage End Date [facility] [address] [place] [phone] [id number] ANA ORTIZ Self - patient is the insured Medical (General) History Medical History History ICD Code Emphysema-mild Denies [place],DM,CVA,renal disease Arthritis Multiple myeloma 10/2019--sees Dr. Chacorta mendez for chemotherapy HTN Neg. colonoscopy in 08/2009 Hyperlipidemia Abdominal aortic aneurysm with treatment as below Surgical History Surgery Date(Month/Year) Lumbar surgery - Dr. De La Paz 2007 Endovascular graft placement [place] [facility] [place] AAA--sees Dr. Galeano now 2009 Hernia repairs- left inguinal and umbili broderick
--- OUTSIDE RECORDS SUMMARY | 2025-03-20 08:10 | XMS_ITS | Clinical Summary ---
Author Organization [address] Address [address] [place] [address] Phone Care Team Providers Care 911 Dispatcher Name Role Phone Tho Cruz NP Primary [...] - 2023- season) 2024 Influenza vaccine 07/10/2025 Colon cancer screening, Colonoscopy Discontinued Meningococcal Vaccine Aged Out No alexa quan [...] EDT [facility] eGFR (-FRENCH) >60 >60 mL/min/1. 73m2 05/07/2021 3:12 AM EDT [facility] eGFR (NON -Dutch) >60 >60 mL/min/1. 73m2 05/07/2021 3:12 AM [...] - 145 mmol/L 05/07/2021 3:12 AM EDT [facility] Potassium 3.1(L) 3.5 - 5.1 mmol/L 05/07/2021 3:12 AM EDT [facility] Chloride 104 98 - 107 mmol/L 05/07/2021 3:12 AM EDT [facility] CO2 26 21 - 32 mmol/L 05/07/2021 3:12 AM EDT [facility] Anion Gap 7 5 - 15 mmol/L 05/07/2021 3:12 AM EDT [facility] Calcium 8.5 8.5 - 10.1 mg/dL 05/07/2021 3:12 AM T [facility] Blood Venipuncture / Unknown 05/07/2021 2:40 AM EDT 05/07/2021 2:44 AM EDT us Vishnu Fontanez MD LAB BLOOD ORDERABLES Fin al Result [facility] [address] [place] [address] from Last 3 Months or Most Recently Relevant to Health Maintenance Insurance [facility] MEDICARE MANAGED [facility] Care Teams 911 Dispatcher Relationship Specialty Start Date End Date Tho Cruz NP [address] [facility] [place] [address] PCP - General Family Medicine 05/07/21
[2025-03-20 08:12] VITALS: BP 124/72; PULSE 71; BMI 24.6
--- NOTE | 2025-03-20 08:12 | A.OFFVIS_ITS ---
Vital Signs 03/20/25 08:12 Height 5 ft 8 in Weight 161 lb 13.109 oz BMI 24.6 BP 124/72 Blood Pressure Location Lt brachial Position Sitting Pulse 71 Pulse Source Monitor Intake Visit Reasons: 1yr follow up Certified Surgical Technologist Required: No Allergies No Known Allergies Allergy (Verified 03/20/25 08:15) Medication List - Last Reconciled 03/20/25 by Fer Allen MD acyclovir 400 mg PO DAILY amlodipine (Norvasc) 10 mg PO DAILY aspirin 81 mg PO DAILY MDD 81 atorvastatin 40 mg PO BEDTIME finasteride 5 mg PO DAILY 90 days hydrochlorothiazide 25 mg PO DAILY lisinopril 5 mg PO DAILY metoprolol succinate ER 100 mg PO DAILY jlebm-7h-nbs-epa-fish oil 300-1,000 mg ([place]-3 Fish Oil) 1 cap PO BEDTIME ondansetron 8 mg PO Q8H PRN potassium chloride ER 20 mEq PO DAILY sulfamethoxazole-trimethoprim 400-80 mg 1 tab PO DAILY vitamin D3-vitamin K2 137.5-200 mcg 1 tab PO DAILY HPI Comments Details: Hussein returns for follow-up regarding vascular disease. He has a history of endovascular stenting of abdominal aortic aneurysm. He also had peripheral vascular disease in his lower extremities. Previously going to [facility] but now switched to [facility] [place]. He has hypertension and dyslipidemia on appropriate therapy. Due to complaints of chest pains he did undergo cardiac catheterization in the past but that did not show any significant disease. Despite general joint aches, physical activity such as climbing stairs does not cause shortness of breath or chest pain, and he remains functionally active. Exercise The patient ascends 16 stairs nightly without experiencing shortness of breath, indicating a satisfactory level of cardiovascular and respiratory tolerance. [facility] Medical History Pneumonia Statin intolerance HTN (hypertension) AAA (abdominal aortic aneurysm) Vitamin D deficiency Subclinical hyperthyroidism Multinodular thyroid Pancytopenia Leukopenia Multiple myeloma Surgical History Hx of hernia repair (07/08/18) History of bone marrow biopsy Hx of tooth extraction History of back surgery Hx of umbilical hernia repair (06/28/13) History of AAA (abdominal aortic aneurysm) repair Family History Father CVD (cardiovascular disease) AAA (abdominal aortic aneurysm) Mother Stomach cancer Social History Household Members: Spouse Housing: House Are you a primary manager long term care to a significant other at home: No Do you presently have visiting nurse or other home services: No Alcohol intake: former Comment: Patient refuses bed alarm Patient Tobacco Use Status: Former Tobacco user Years Smoked: 38 e-Cigarette/Vaping Use: Never Used Second Hand Smoke Exposure: No Special tiesha needs: No Agree to transfusion: Yes Advance Directives Date on File: 01/11/21 service: Yes Current occupational status: employed and retired Cognitive needs: No Hearing needs: No Vision needs: No Review of Systems ENT Reports dizziness Card Denies chest pain, Denies chest pain at rest, Denies chest pain with activity, Denies rapid heart rate, Denies pedal edema, Denies edema, Denies leg edema, Denies lightheadedness, Denies palpitations, Denies dyspnea, Denies dyspnea on exertion and Denies orthopnea Resp Denies cough, Denies dyspnea and Denies dyspnea on exertion GI Denies hematochezia and Denies change in stool character Musc Denies abnormal gait, Reports limited range of motion, Reports muscle cramps, Denies muscle weakness, Denies numbness, Denies radiating pain into limb, Denies stiffness and Denies tingling Neuro Denies abnormal gait, Reports dizziness, Denies numbness and Denies tingling Endo Denies palpitations Physical Exam Vital Signs: Last Vital Signs Pulse 71 03/20/25 08:12 BP 124/72 03/20/25 08:12 BMI result Body Mass Index 24.6 Const General: comfortable and no acute distress Orientation/consciousness: patient oriented x3 HEENT Other: Unremarkable Head: Yes normal to inspection Neck Neck: Yes normal visual inspection Chest Chest palpation & inspection: normal inspection of the chest Resp Auscultation: clear to auscultation bilaterally Cardio Palpation: normal PMI Heart sounds: S1 normal heart sound present, S2 normal heart sound present, no gallops, Murmur heart sound present systolic II/ and at the right sternal border and no rubs GI Palpation (GI): Soft to palpation Back/Spine/Pelvis Other: unremarkable Skin General skin exam: no rashes or lesions noted Neuro General: patient oriented x3 Extrem General: Yes normal to inspection Psych Mental Status: mental status grossly normal Office Procedures EKG Details: EKG with underlying sinus rhythm at 71/Min; supraventricular ectopy; [place] [address]-Hjntlnjgkzxvhyvww, Complete Assessment & Plan Assessment & Plan (1) Atherosclerotic cardiovascular disease: Code(s): I25.10 - Atherosclerotic heart disease of [place] coronary artery without angina pectoris Category: Medical (2) Non-rheumatic aortic stenosis: Code(s): I35.0 - Nonrheumatic aortic (valve) stenosis Category: Medical (3) Mitral annular calcification: Code(s): I05.9 - Rheumatic mitral valve disease, unspecified Category: Medical (4) Essential hypertension: Code(s): I10 - Essential (primary) hypertension Category: Medical (5) History of AAA (abdominal aortic aneurysm) repair: Code(s): Z98.890 - Other specified postprocedural states Category: Surgical (6) Peripheral vascular disease: Code(s): I73.9 - Peripheral vascular disease, unspecified Category: Medical (7) Statin intolerance: Code(s): Z78.9 - Other specified health status Category: Medical Plan Cardiac studies reviewed. In the recent echocardiogram, LVEF is 49%. Peak global longitudinal strain- 15.9%. Moderate aortic valve calcification with mild stenosis. Ascending aortic size 4.1 cm. In the earlier echocardiogram, LVEF is 50-55%. Mild aortic stenosis. Ascending aortic size 4.2 cm. Cardiac catheterization 2019 showed only mild disease in the 2nd diagonal, but otherwise normal coronary arteries. Overall, mild cardiomyopathy, but otherwise stable. LVEF itself has been slightly variable at different times. Clinically, no heart failure symptoms or signs. Continue low-dose aspirin. Continue beta-blockers and statins. For hypertension, he is on amlodipine, lisinopril, hydrochlorothiazide, metoprolol. Aortic stenosis/ascending aortic dilatation can be followed periodically. We will follow up in one year. In the interim, he will call with any concerns. Discussion Notes I discussed the patient?s hypertension management and his cancer treatment regimen, noting the stability achieved with the current plan. We reviewed the recent echocardiogram results showing satisfactory cardiovascular status and affirmed no need for additional cardiovascular interventions at this time. The patient consented to the planned management over the upcoming year unless urgent changes arise. I reiterated the option to contact me in case of any new health developments. Patient was informed and verbally consented to the use of an ambient scribe for clinic note documentation during this visit. Patient Instructions: - Monitor your blood pressure regularly at home. - Continue your current cancer treatment schedule. - Maintain your level of physical activity as tolerated. - Call me if any new symptoms or concerns develop. - Follow up next year unless sooner if needed. - No smoking at any time. Coding Level of Care Code Est Pt Level 4 (24128) Complex EM visit Add On G2211 Diagnoses Atherosclerotic cardiovascular disease I25.10 Non-rheumatic aortic stenosis I35.0 Mitral annular calcification I05.9 Essential hypertension I10 History of AAA (abdominal aortic aneurysm) repair Z98.890 Peripheral vascular disease I73.9 Statin intolerance Z78.9 CPT Codes EKG - CPT: 99018-Fzvvcxpqsztjmdanj, Complete ([id number])
== END 2025-03-20 08:33 | disposition home or self-care (01) ==
LOC: HO.HCS 08:06
PROVIDERS: PCP Nurse Practitioner Family; Visit Provider Internal Medicine
DX: I25.10 Atherosclerotic heart disease of native coronary artery without angina pectoris (principal); I35.0 Nonrheumatic aortic (valve) stenosis; I05.9 Rheumatic mitral valve disease, unspecified; I10 Essential (primary) hypertension; Z98.890 Other specified postprocedural states; I73.9 Peripheral vascular disease, unspecified; Z78.9 Other specified health status
CPT/HCPCS: 93010; 99214; G2211

== ENCOUNTER → 2025-03-20 08:05 | Outpatient (BNVA) | payer MEDICARE, SELFPAY | PROVIDERS: PCP Nurse Practitioner Family; Visit Provider Internal Medicine | DX: I25.10 Atherosclerotic heart disease of native coronary artery without angina pectoris (principal); I35.0 Nonrheumatic aortic (valve) stenosis; I05.9 Rheumatic mitral valve disease, unspecified; I10 Essential (primary) hypertension; I73.9 Peripheral vascular disease, unspecified; Z98.890 Other specified postprocedural states; Z78.9 Other specified health status; R94.31 Abnormal electrocardiogram [ECG] [EKG] | CPT/HCPCS: 93005; 99212 ==

== ENCOUNTER 2025-03-30 08:05 | Outpatient (REF) | payer MEDICARE, SELFPAY ==
--- OUTSIDE RECORDS SUMMARY | 2025-03-30 08:10 | XMS_ITS | Clinical Summary ---
Author Organization [address] Address [address] [place] [address] Phone Care Team Providers Care Director Of Technology Name Role Phone Tho Cruz NP Primary [...] EDT [facility] eGFR (-GHANAIAN) >60 >60 mL/min/1. 73m2 05/07/2021 3:12 AM EDT [facility] eGFR (NON -Tunisian) >60 >60 mL/min/1. 73m2 05/07/2021 3:12 AM [...] MD LAB BLOOD ORDERABLES Fin al Result [facility] [address] [place] [address] from Last 3 Months or Most Recently Relevant to Health Maintenance Insurance [facility] [place] MEDICARE [place] [facility] [place] Care Teams Director Of Technology Relationship Specialty Start Date End Date Tho Cruz NP [address] [place] [address] PCP - General Family Medicine 05/07/21
--- OUTSIDE RECORDS SUMMARY | 2025-03-30 08:10 | XMS_ITS | Patient Health Record ---
Author Organization [facility] Address [address] [place] [address] Care Team Providers Care Customer Assistant Name Role Phone CLIFF LINTON Primary Care Provider Ana Madsen Unavailable [phone] Allergies Allergen (clinical drug ingredient) Drug/Non Drug [...] Problem Status W/U Status Risk Notes Problem 112394133 Encounter for screening for malignant neoplasm of colon (Z12.11) Active confirmed Problem Nausea and vomiting (43423543) Nausea with vomiting, unspecified (R11.2) Active confirmed Problem 971154005776420 Preprocedural examination (Z01.818) Active confirmed Problem 31503447 Constipation, unspecified constipation type (K59.00) Active confirmed Plan Of Treatment No Information Insurance Providers Payer Name Payer Address Payer Phone Subscriber Number Group Number Insured Name Patient Relationship to Insured Coverage Start Date Coverage End Date [facility] [address] [place] [address] [id number] ANA ORTIZ Self - patient is the insured Medical (General) History Medical History History ICD Code Emphysema-mild Denies [place],DM,CVA,renal disease Arthritis Multiple myeloma 10/2019--sees Dr. Chacorta mendez for chemotherapy HTN Neg. colonoscopy in 08/2009 Hyperlipidemia Abdominal aortic aneurysm with treatment as below Surgical History Surgery Date(Month/Year) Lumbar surgery - Dr. De La Paz 2007 Endovascular graft [place] [facility] [place]--sees Dr. Galeano now 2009 Hernia repairs- left inguinal and umbili broderick
[2025-03-30 10:16] LABS: MANUAL DIFF FLAG NO
[2025-03-30 10:23] LABS: Basophils Percent Auto 0.5 % (0-2); Eosinophils Absolute Auto 0.1 X10*3/uL (0.0-0.4); Hematocrit 42.6 % (42.0-52.0); Hemoglobin 14.4 g/dl (14.0-18.0); Imm Gran Abs Auto 0.02 X10*3/uL (0.00-0.03); Imm Gran Pct Auto 0.3 % (0.0-0.4); Lymphocytes Absolute Auto 1.1 X10*3/uL (1.2-4.9); Lymphocytes Percent Auto 19.7 % (20-40); Mean Corpuscular HGB Conc 33.8 g/dl (31.0-36.0); Mean Corpuscular Hemoglobin 33.3 pg (27.0-33.0); Mean Corpuscular Volume 98.4 fL (80.0-98.0); Mean Platelet Volume 11.6 fL (9.4-12.4); Monocytes Absolute Auto 0.6 X10*3/uL (0.1-1.2); Monocytes Percent Auto 9.6 % (2-11); Neutrophils Percent Auto 68.9 % (45-73); Platelet Count 150 X10*3/uL (160-400); Red Blood Count 4.33 X10*6/uL (4.60-5.80); Red Cell Distribution Width 13.5 % (11.0-16.0); White Blood Count 5.7 X10*3/uL (4.8-10.8)
[2025-03-30 11:27] LABS: Alanine Aminotransferase 15 U/L (0-40); Albumin Level 4.5 g/dL (3.5-5.0); Alkaline Phosphatase 74 U/L (39-117); Anion Gap 11 (12-20); Aspartate Amino Transferase 20 U/L (5-37); Bilirubin Total 0.7 mg/dL (0.0-1.0); Blood Urea Nitrogen 16 mg/dL (9-16); Calcium 9.6 mg/dL (8.4-10.2); Carbon Dioxide 27 mmol/L (22-29); Chloride 105 mmol/L (96-108); Estimated Glomerular Filt Rate > 60; Glucose Random 109 mg/dL (60-115); Potassium 3.4 mmol/L (3.3-5.1); Sodium 140 mmol/L (135-145); Total Protein 6.1 g/dL (6.5-8.0)
== END 2025-03-30 08:06 | disposition home or self-care (01) ==
LOC: HO.HMGCLDS 08:05
PROVIDERS: PCP Nurse Practitioner Family; Visit Provider Internal Medicine Medical Oncology
DX: C90.00 Multiple myeloma not having achieved remission (principal)
CPT/HCPCS: 36415; 80053; 85025

== ENCOUNTER 2025-04-14 06:08 | Outpatient (REF) | payer MEDICARE, SELFPAY ==
[2025-04-14 06:18] LABS: MANUAL DIFF FLAG NO
[2025-04-14 06:31] LABS: Basophils Percent Auto 0.8 % (0-2); Eosinophils Absolute Auto 0.1 X10*3/uL (0.0-0.4); Eosinophils Percent Auto 1.6 % (0-4); Hematocrit 41.7 % (42.0-52.0); Imm Gran Abs Auto 0.02 X10*3/uL (0.00-0.03); Imm Gran Pct Auto 0.4 % (0.0-0.4); Lymphocytes Absolute Auto 1.1 X10*3/uL (1.2-4.9); Lymphocytes Percent Auto 22.3 % (20-40); Mean Corpuscular HGB Conc 33.6 g/dl (31.0-36.0); Mean Corpuscular Hemoglobin 33.3 pg (27.0-33.0); Mean Corpuscular Volume 99.3 fL (80.0-98.0); Monocytes Absolute Auto 0.5 X10*3/uL (0.1-1.2); Monocytes Percent Auto 10.9 % (2-11); Neutrophils Absolute Auto 3.2 x10*3/uL (2.0-8.3); Platelet Count 157 X10*3/uL (160-400); Red Cell Distribution Width 13.6 % (11.0-16.0)
[2025-04-14 06:41] LABS: Alanine Aminotransferase 12 U/L (0-40); Albumin Level 4.3 g/dL (3.5-5.0); Alkaline Phosphatase 60 U/L (39-117); Anion Gap 11 (12-20); Aspartate Amino Transferase 21 U/L (5-37); Bilirubin Total 0.8 mg/dL (0.0-1.0); Blood Urea Nitrogen 19 mg/dL (9-16); Calcium 9.3 mg/dL (8.4-10.2); Carbon Dioxide 29 mmol/L (22-29); Chloride 106 mmol/L (96-108); Estimated Glomerular Filt Rate > 60; Glucose Random 151 mg/dL (60-115); Potassium 3.9 mmol/L (3.3-5.1); Sodium 142 mmol/L (135-145); Total Protein 5.9 g/dL (6.5-8.0)
[2025-04-17 13:47] LABS: Kappa/Lambda Lt Ch Free Ratio >0.67 (0.26-1.65); Lambda Light Chain, Free Serum <1.5 mg/L (5.7-26.3)
[2025-04-19 12:49] LABS: IgA 5 mg/dL (70-320); IgG 225 mg/dL (600-1540); IgM <5 mg/dL (50-300)
== END 2025-04-14 06:09 | disposition home or self-care (01) ==
LOC: HO.LAB 06:08
PROVIDERS: PCP Nurse Practitioner Family; Visit Provider Internal Medicine Medical Oncology
DX: C90.00 Multiple myeloma not having achieved remission (principal)
CPT/HCPCS: 36415; 80053; 82784; 83521; 85025; 86334

== ENCOUNTER 2025-04-17 07:56 | Outpatient (AMB) | payer MEDICARE, SELFPAY ==
--- OUTSIDE RECORDS SUMMARY | 2025-04-17 07:59 | XMS_ITS | Patient Health Record ---
Author Organization [facility] Address [address] [place] [address] Care Team Providers Care Want Ad Receiver Name Role Phone CLIFF LINTON Primary Care Provider Ana Madsen Unavailable [phone] Allergies Allergen (clinical drug ingredient) Drug/Non Drug [...] Problem Status W/U Status Risk Notes Problem 528714084 Encounter for screening for malignant neoplasm of colon (Z12.11) Active confirmed Problem Nausea and vomiting (46663396) Nausea with vomiting, unspecified (R11.2) Active confirmed Problem 792455502639848 Preprocedural examination (Z01.818) Active confirmed Problem 49444551 Constipation, unspecified constipation type (K59.00) Active confirmed Plan Of Treatment No Information Insurance Providers Payer Name Payer Address Payer Phone Subscriber Number Group Number Insured Name Patient Relationship to Insured Coverage Start Date Coverage End Date [facility] [address] [place] [address] [phone] [id number] ANA ORTIZ Self - patient is the insured Medical (General) History Medical History History ICD Code Emphysema-mild Denies [place],DM,CVA,renal disease Arthritis Multiple myeloma 10/2019--sees Dr. Chacorta mendez for chemotherapy HTN Neg. colonoscopy in 08/2009 Hyperlipidemia Abdominal aortic aneurysm with treatment as below Surgical History Surgery Date(Month/Year) Lumbar surgery - Dr. De La Paz 2007 Endovascular graft placement at [facility] [place] AAA--sees Dr. Galeano now 2009 Hernia repairs- left inguinal and umbili broderick
[2025-04-17 08:05] VITALS: BP 130/60; PULSE 66; O2SAT 95; BMI 23.7
--- NOTE | 2025-04-17 08:05 | MHC.PC.OV ---
Vital Signs 04/17/25 08:05 Height 5 ft 8 in Weight 156 lb BMI 23.7 BP 130/60 Blood Pressure Location Rt brachial Position Sitting Pulse 66 Pulse Source Pulse Oximeter Pulse Oximetry (%) 95 Oxygen Delivery Method Room Air Intake Visit Reasons: 6m follow up Allergies No Known Allergies Allergy (Verified 04/17/25 08:05) Tobacco use date assessed: 04/17/25 Fall risk assessment: No Falls in past year Last assessed Fall Risk: 04/17/25 Dental Screening Dental Screen Date: 04/17/25 Did you have a dental visit in the last 12 months?: Yes Did you have a dental problem in the last 6 months where you did not have access to dental care?: No Was dental information given to patient?: Patient has dentist HPI 6m follow up HPI Details Chief Complaint Management of long-term Essential Hypertension History of Present Illness The patient is a 79-year-old male presenting with Essential Hypertension. He describes his condition as relatively stable when monitored at home, despite experiencing occasional low systolic blood pressure readings without dizziness or other associated symptoms. The patient maintains regular follow-up appointments with specialists encompassing vascular, cardiology, urology, and oncology disciplines. He is advised to continue his current management plan with periodic assessments in hematology every six months. Home blood pressure monitoring persists as a part of his management to determine if consistent medication adjustments are required. Social History Health Maintenance - Routine regular follow-ups with specialists in vascular, cardiology, urology, and oncology. - Scheduled hematology assessments every six months. - Upcoming laboratory tests, including lipid profile in one month. Review of Systems - Cardiovascular: Reports infrequent low systolic blood pressure. Denies dizziness. Physical Exam General: Cooperative, healthy appearing, comfortable, no acute distress and well developed Orientation: Patient oriented x3 Limitations: No limitations Head: Normal to inspection Ears: Hearing grossly normal bilaterally Nose: Normal external nose present Face and sinus: Normal facial exam Eyes: Appearance normal, both eyes and all related structures Neck: Normal visual inspection and Yes full ROM Respiratory: Normal respiratory effort and able to speak in complete sentences. Clear to auscultation bilaterally Cardiovascular: Regular rate and rhythm. Normal S1 and S2, systolic murmur GI: Normal to inspection. Soft to palpation and nontender Skin: No rashes or lesions noted Neuro: Patient oriented x3 Extremities: Normal to inspection Results Plan The current management for the patient's Essential Hypertension involves continued home monitoring of blood pressure with special attention to any low systolic readings. Potential medication dosage adjustments will be considered based on ongoing observations/symptoms. Regular follow-ups with vascular, cardiology, urology, and oncology specialists are ongoing, accompanied by a six-monthly hematology review. A lipid profile test is planned for the coming month to keep track of cardiovascular risk factors. Discussion Notes I discussed with the patient the importance of monitoring his blood pressure at home with an emphasis on observing any patterns of low systolic readings. We agreed on potentially modifying his medication if low readings persist, to effectively manage his hypertension. I reaffirmed the need for maintaining his current schedule of follow-ups with his specialists, which includes vascular, cardiology, urology, and oncology visits. We also talked about the upcoming hematology consultation in six months and planned laboratory work including lipid profiling within a month. The patient voiced understanding and agreement with the proposed management strategies and is aware of the follow-up guidelines and anticipatory guidance provided. Patient Instructions - Continue monitoring your blood pressure at home. - Follow up with your specialists as regularly scheduled. - Plan for hematology assessment in six months. - Have laboratory tests done, including lipids, in approximately one month. - Report any significant symptoms or changes in your condition promptly. [facility] Medical History Pneumonia Statin intolerance HTN (hypertension) AAA (abdominal aortic aneurysm) Vitamin D deficiency Subclinical hyperthyroidism Multinodular thyroid Pancytopenia Leukopenia Multiple myeloma Surgical History Hx of hernia repair (07/08/18) History of bone marrow biopsy Hx of tooth extraction History of back surgery Hx of umbilical hernia repair (06/28/13) History of AAA (abdominal aortic aneurysm) repair Family History Father CVD (cardiovascular disease) AAA (abdominal aortic aneurysm) Mother Stomach cancer Social History Household Members: Spouse Housing: House Are you a primary child care centre director to a significant other at home: No Do you presently have visiting nurse or other home services: No Alcohol intake: former Comment: Patient refuses bed alarm Patient Tobacco Use Status: Former Tobacco user Years Smoked: 38 e-Cigarette/Vaping Use: Never Used Second Hand Smoke Exposure: No Special tiesha needs: No Agree to transfusion: Yes Advance Directives Date on File: 01/11/21 service: Yes Current occupational status: employed and retired Cognitive needs: No Hearing needs: No Vision needs: No Questionnaire PHQ-9 Over the last 2 weeks, how often have you been bothered by any of the following problems? 62512 - PHQ-9 Billing: Patient declined-do not bill Source: Developed by Drs. Hussein Walton, Maxine Hidalgo, Elpidio Silveira and colleagues, with an educational artem from [employer]. Thrive Questionnaire Date Thrive assessed: 04/17/25 I am a: Patient What is your living situation today?: I have a steady place to live Within the past 12 months, did the food you bought not last and you didn't have the money to get more?: Never true Within the past 12 months, did you worry whether your food would run out before you got money to buy more?: Never true Do you have trouble paying for medicines?: No Do you have trouble getting transportation to medical appointments?: No Do you have trouble paying your heating and electricity bill?: No Do you have trouble taking care of your child, family member or friend?: No Do you have trouble with day-to-day activities such as bathing, preparing meals, shopping, managing finances, etc.?: No Are you currently unemployed and looking for a job?: No Are you interested in more education?: No Please select the resources that you would like help with: None Currently or been in a relationship where the following occur: No concerns reported THRIVE Score: 0 AUDIT C Alcohol Use Questionnaire (AUDIT-C) 1. How often do you have a drink containing alcohol?: Never 3. How often do you have six or more drinks on one occasion?: Never Total Score: 0 Score Reviewed/Action Taken: Yes LITTLE-7 AMB Questionnaire LITTLE-7 Date LITTLE - 7 assessed: 04/17/25 Feeling nervous, anxious, or on edge: 0 = Not at all Not being able to stop or control worryin = Not at all Worrying too much about different things: 0 = Not at all Trouble relaxin = Not at all Being so restless that it is hard to sit still: 0 = Not at all Becoming easily annoyed or irritable: 0 = Not at all Feeling afraid as if something awful might happen: 0 = Not at all Total LITTLE-7 score (0-4 normal; 5-9 mild; 10-14 moderate; 15-21 severe): 0 Source: Developed by Drs. Hussein Walton, Maxine Hidalgo, Elpidio Silveira and colleagues, with an educational artem from [employer]. LITTLE-7 Assessment Billing LITTLE-7 Assessment Tool: LITTLE-7 Assessment 26444 Physical exam (Primary Care) Vital Signs: Last Vital Signs Pulse 66 04/17/25 08:05 BP 130/60 04/17/25 08:05 Pulse Ox 95 04/17/25 08:05 Oxygen Delivery Method Room Air 04/17/25 08:05 BMI result Body Mass Index 23.7 Tobacco/Smoking Status: Tobacco use Status Tobacco use date assessed 04/17/25 04/17/25 08:07 Patient Tobacco Use Status Former Tobacco user 04/17/25 08:07 e-Cigarette/Vaping Use Never Used 04/17/25 08:07 Thrive Assessment: Date of Thrive Assessment Date Thrive assessed 04/17/25 04/17/25 08:07 Currently or been in a relationship where the following occur: No concerns reported Coding Level of Care Code Est Pt Level 3 (46834) Diagnoses Essential hypertension I10 Additional Codes LITTLE-7 Assessment Billing - LITTLE-7 Assessment Tool: LITTLE-7 Assessment 33893 ([id number]) Assessment & Plan Assessment & Plan (1) Essential hypertension: Code(s): I10 - Essential (primary) hypertension Category: Medical Plan . Orders: Orders Comprehensive [place]. Panel Fast Today I10 - Essential (primary) hypertension UA CC w/rflx Micro + Cult Today I10 - Essential (primary) hypertension Lipid Panel Today I10 - Essential (primary) hypertension TSH reflex Free T4 Today I10 - Essential (primary) hypertension
== END 2025-04-17 09:09 | disposition home or self-care (01) ==
LOC: HO.HMCC 07:56
PROVIDERS: PCP Nurse Practitioner Family; Visit Provider Nurse Practitioner Family
DX: I10 Essential (primary) hypertension (principal)

== ENCOUNTER → 2025-04-17 07:56 | Outpatient (BNVA) | payer MEDICARE, SELFPAY | PROVIDERS: PCP Nurse Practitioner Family; Visit Provider Nurse Practitioner Family | DX: I10 Essential (primary) hypertension (principal); Z13.30 Encounter for screening examination for mental health and behavioral disorders, unspecified | CPT/HCPCS: 96127; 99212 ==

== ENCOUNTER 2025-04-27 06:51 | Outpatient (REF) | payer MEDICARE, SELFPAY ==
--- NOTE | ~2025-04-27 | XR_ITS ---
EXAMINATION: XR BONE SURVEY, COMPLETE CLINICAL INFORMATION: Follow-up on multiple myeloma COMPARISON: Bone survey dated 05/22/2023. Pelvic x-rays 10/27/2024. CT abdomen and pelvis 06/01/2024. CT chest 05/24/2023. TECHNIQUE: Whole-body bone survey was performed utilizing the following views: Lateral skull, lateral C-spine, AP and lateral T-spine, AP and lateral L-spine, AP pelvis, PA chest, bilateral AP humeri and bilateral AP forearms, bilateral AP femurs , and bilateral AP tibias/fibulas. FINDINGS: Calvarium is intact without definite lytic or blastic lesion. Sella is normal in size. Paranasal sinuses appear pneumatized. Cervical spine demonstrates partial fusion of C5-6, with mild to moderate associated spondylosis. No definitive lytic or blastic lesions. Thoracic spine demonstrates normal alignment and kyphosis. No compression deformities or definite lytic or blastic lesions. There is mild to moderate spondylosis. Chest demonstrate normal cardiac, hilar, and mediastinal contours. Aortic mural calcifications. Lungs are clear. Bony structures show no lytic lesions. Lumbar spine shows moderate spondylosis, with minimal levoconvex scoliosis, normal lordosis, and no evidence of lytic or blastic bone lesion. No compression deformities. Aortic biiliac stent grafts incidentally noted in place. Vascular calcifications are present. AP pelvis demonstrates degenerative changes in both hip joints and SI joints. Slightly mottled appearance of the trabecular pattern, similar to the prior. Bilateral humeri are intact without suspicious lesion. Mild degenerative changes of the shoulder joints bilaterally. Bilateral forearms demonstrate no evidence of lytic or blastic bone lesion. Mild degenerative changes in both elbow joints noted. Bilateral femurs show subtle small lucent foci in the trabecular and cortical bone suspicious for myelomatous involvement. This is especially notable in the proximal and distal metadiaphyses. Bilateral tibia and fibulas demonstrate no definite lucent foci or suspicious bone lesion. Knee joints appear normal. Mild degenerative changes in both ankle joints. XR/XR bone survey IMPRESSION: 1. Whole body bone examination showing small lucent foci in the bilateral femurs and bilateral humeri, especially involving the proximal and distal metadiaphyses. Findings are suspicious for myelomatous involvement. 2. Similar mottled type trabecular appearance within the pelvis, possible myelomatous involvement. 3. Ancillary findings as discussed. 4. Overall, similar appearing whole body bone scan is compared with the prior dated 05/22/2023. Electronically signed by: Fran Ramos MD 04/27/2025 08:32 AM EDT
--- OUTSIDE RECORDS SUMMARY | 2025-04-27 06:53 | XMS_ITS | Patient Health Record ---
Author Organization [facility] Address [address] [place] [address] Care Team Providers Care Crop Duster Helper Name Role Phone CLIFF LINTON Primary Care Provider Ana Madsen Unavailable [phone] Allergies Allergen (clinical drug ingredient) Drug/Non Drug [...] Problem Status W/U Status Risk Notes Problem [id number] Encounter for screening for malignant neoplasm of colon (Z12.11) Active confirmed Problem Nausea and vomiting (07723937) Nausea with vomiting, unspecified (R11.2) Active confirmed Problem [id number] Preprocedural examination (Z01.818) Active confirmed Problem 92018384 Constipation, unspecified constipation type (K59.00) Active confirmed Plan Of Treatment No Information Insurance Providers Payer Name Payer Address Payer Phone Subscriber Number Group Number Insured Name Patient Relationship to Insured Coverage Start Date Coverage End Date [facility] [address] [place] [phone] [id number] ANA ORTIZ Self - patient is the insured Medical (General) History Medical History History ICD Code Emphysema-mild Denies AL,DM,CVA,renal disease Arthritis Multiple myeloma 10/2019--sees Dr. Chacorta mendez for chemotherapy HTN Neg. colonoscopy in 08/2009 Hyperlipidemia Abdominal aortic aneurysm with treatment as below Surgical History Surgery Date(Month/Year) Lumbar surgery - Dr. De La Paz 2007 Endovascular graft [place] [facility] [place]sees Dr. Galeano now 2009 Hernia repairs- left inguinal and umbili broderick
[2025-04-27 07:05] LABS: MANUAL DIFF FLAG NO
[2025-04-27 07:23] LABS: Basophils Percent Auto 0.7 % (0-2); Eosinophils Absolute Auto 0.1 X10*3/uL (0.0-0.4); Eosinophils Percent Auto 1.3 % (0-4); Hematocrit 42.1 % (42.0-52.0); Hemoglobin 14.6 g/dl (14.0-18.0); Imm Gran Abs Auto 0.02 X10*3/uL (0.00-0.03); Imm Gran Pct Auto 0.3 % (0.0-0.4); Lymphocytes Absolute Auto 1.1 X10*3/uL (1.2-4.9); Lymphocytes Percent Auto 18.8 % (20-40); Mean Corpuscular HGB Conc 34.7 g/dl (31.0-36.0); Mean Corpuscular Hemoglobin 33.6 pg (27.0-33.0); Monocytes Absolute Auto 0.5 X10*3/uL (0.1-1.2); Neutrophils Absolute Auto 4.2 x10*3/uL (2.0-8.3); Neutrophils Percent Auto 69.9 % (45-73); Platelet Count 137 X10*3/uL (160-400); Red Blood Count 4.34 X10*6/uL (4.60-5.80); Red Cell Distribution Width 13.7 % (11.0-16.0)
[2025-04-27 07:32] LABS: Alanine Aminotransferase 15 U/L (0-40); Albumin Level 4.2 g/dL (3.5-5.0); Alkaline Phosphatase 71 U/L (39-117); Anion Gap 13 (12-20); Aspartate Amino Transferase 22 U/L (5-37); Bilirubin Total 0.8 mg/dL (0.0-1.0); Blood Urea Nitrogen 14 mg/dL (9-16); Calcium 9.3 mg/dL (8.4-10.2); Carbon Dioxide 27 mmol/L (22-29); Chloride 106 mmol/L (96-108); Cholesterol 132 mg/dL (<200); Estimated Glomerular Filt Rate > 60; Glucose Fasting 110 mg/dL (60-99); Glucose Random 110 mg/dL (60-115); HDL Cholesterol 50 mg/dL (>40); LDL Cholesterol Calculated 71 mg/dL (<100); Potassium 3.4 mmol/L (3.3-5.1); Sodium 143 mmol/L (135-145); Total Protein 5.7 g/dL (6.5-8.0); Triglycerides 59 mg/dL (<150)
[2025-04-27 07:42] LABS: Prostate Specific Antigen 3.57 ng/mL (<0.05-4.0)
[2025-04-27 07:43] LABS: TSH reflex Free T4 0.73 uIU/mL (0.32-4.0)
[2025-05-01 11:33] LABS: Kappa Light Chain, Free Serum 1.4 mg/L (3.3-19.4); Kappa/Lambda Lt Ch Free Ratio >0.93 (0.26-1.65); Lambda Light Chain, Free Serum <1.5 mg/L (5.7-26.3)
[2025-05-02 13:39] LABS: IgA 5 mg/dL (70-320); IgG 234 mg/dL (600-1540); IgM 5 mg/dL (50-300)
== END 2025-04-27 06:52 | disposition home or self-care (01) ==
LOC: HO.XRAY 06:51
PROVIDERS: Absent Provider Nurse Practitioner Family; PCP Nurse Practitioner Family; Referring Provider Urology; Visit Provider Internal Medicine Medical Oncology
DX: R97.20 Elevated prostate specific antigen [PSA] (principal); N40.1 Benign prostatic hyperplasia with lower urinary tract symptoms; N13.8 Other obstructive and reflux uropathy; C90.00 Multiple myeloma not having achieved remission; I10 Essential (primary) hypertension; Z12.5 Encounter for screening for malignant neoplasm of prostate
CPT/HCPCS: 36415; 77075; 80053; 80061; 82784; 83521; 84153; 84443; 85025; 86334

== ENCOUNTER → 2025-04-27 07:10 | Outpatient (BNV) | payer MEDICARE, SELFPAY | PROVIDERS: Absent Provider Nurse Practitioner Family; PCP Nurse Practitioner Family; Referring Provider Urology; Visit Provider Radiology Diagnostic Radiology | DX: C90.00 Multiple myeloma not having achieved remission (principal) | CPT/HCPCS: 77075 ==

== ENCOUNTER 2025-04-27 13:10 | Outpatient (REF) | payer MEDICARE, SELFPAY ==
[2025-04-27 17:43] LABS: Appearance Urine Clear; Color Urine Yellow; Glucose Urine UA Negative (Negative); Leukocyte Esterase Urine Negative (Negative); Nitrite Urine Negative (Negative); PH 5.5 (5.0-9.0); Urine Blood Negative (Negative); Urine Ketones Trace mg/dL (Negative); Urine Protein Negative (Neg-Trace)
== END 2025-04-27 13:11 | disposition home or self-care (01) ==
LOC: HO.HMGCLNP 13:10
PROVIDERS: PCP Nurse Practitioner Family; Visit Provider Nurse Practitioner Family
DX: I10 Essential (primary) hypertension (principal)
CPT/HCPCS: 81003

== ENCOUNTER 2025-05-10 06:41 | Outpatient (REF) | payer MEDICARE, SELFPAY ==
--- OUTSIDE RECORDS SUMMARY | 2025-05-10 06:44 | XMS_ITS | Clinical Summary ---
Author Organization [address] Address [address] [place] [address] Phone Care Team Providers Care Night Warehouse Manager Name Role Phone Tho Cruz NP Primary [...] 103 05/07/2021 2:37 AM EDT Temperature 37.4 C (99.3 F) 05/07/2021 3:38 AM EDT Respiratory Rate 18 05/07/2021 2:37 AM EDT [...] EDT [facility] Comment: Non-fastin-110 mg/dL Fasting (minimum 6 hrs): 65-99 mg/dL BUN 18 7 - 18 mg/dL 05/07/2021 3:12 AM EDT [facility] Creatinine 0.78 0.70 - 1.30 mg/dL 05/07/2021 3:12 AM EDT [facility] eGFR (-[place]) >60 >60 mL/min/1. 73m2 05/07/2021 3:12 AM EDT [facility] eGFR (NON -Citizen [place]) >60 >60 mL/min/1. 73m2 05/07/2021 3:12 AM EDT [facility] Comment: (NOTE) These are estimated GFR values resulting from utilization of a calculation incorporating the best data available for input, but all assumptions may not be correct in every case. In addition, there are several situations (elderly over 70 years, , serious co morbidities, extremes of body size or nutritional status) which could contribute to a misleading result. Therefore, clinical correlation is advised to prevent arriving at an erroneous conclusion based solely on the calculation utilized. Sodium 137 136 - 145 mmol/L 05/07/2021 3:12 AM EDT [facility] Potassium 3.1(L) 3.5 - 5.1 mmol/L 05/07/2021 3:12 AM EDT [facility] Chloride 104 98 - 107 mmol/L 05/07/2021 3:12 AM EDT [facility] CO2 26 21 - 32 mmol/L 05/07/2021 3:12 AM EDT [facility] Anion Gap 7 5 - 15 mmol/L 05/07/2021 3:12 AM EDT L + [facility] Calcium 8.5 8.5 - 10.1 mg/dL 05/07/2021 3:12 AM EDT + [facility] Blood Venipuncture / Unknown 05/07/2021 2:40 AM EDT 05/07/2021 2:44 AM EDT Vishnu Fontanez MD LAB BLOOD ORDERABLES Fin al Result Performing Organization Address City/State/[facility] Co de Phone Number [facility] [address] [place] [address] from Last 3 Months or Most Recently Relevant to Health Maintenance Insurance MEDICARE [facility]NA[facility] [address] [place] [address] [facility]IC[facility] [place] [place] Care Teams Night Warehouse Manager Relationship Specialty Start Date End Date Tho Cruz NP 1960 [facility] [place] [address] PCP - General Family Medicine 05/07/21
--- OUTSIDE RECORDS SUMMARY | 2025-05-10 06:44 | XMS_ITS ---
Author Name [facility] Organization Unknown Care Team Organization Name Specialty Phone Email Start Date [facility] 05/07/2021 05/07/20 21
--- OUTSIDE RECORDS SUMMARY | 2025-05-10 06:44 | XMS_ITS | Patient Health Record ---
Author Organization [facility] Address [address] [place] [address] Care Team Providers Care Chief Counsel Name Role Phone CLIFF LINTON Primary Care Provider Ana Madsen Unavailable [phone] Allergies Allergen (clinical drug ingredient) Drug/Non Drug [...] Problem Status W/U Status Risk Notes Problem [id number] Encounter for screening for malignant neoplasm of colon (Z12.11) Active confirmed Problem Nausea and vomiting (81405569) Nausea with vomiting, unspecified (R11.2) Active confirmed Problem [id number] Preprocedural examination (Z01.818) Active confirmed Problem 04887910 Constipation, unspecified constipation type (K59.00) Active confirmed Plan Of Treatment No Information Insurance Providers Payer Name Payer Address Payer Phone Subscriber Number Group Number Insured Name Patient Relationship to Insured Coverage Start Date Coverage End Date [facility] [address] [place] [phone] [id number] ANA ORTIZ Self - patient is the insured Medical (General) History Medical History History ICD Code Emphysema-mild Denies NE,DM,CVA,renal disease Arthritis Multiple myeloma 10/2019--sees Dr. Chacorta mendez for chemotherapy HTN Neg. colonoscopy in 08/2009 Hyperlipidemia Abdominal aortic aneurysm with treatment as below Surgical History Surgery Date(Month/Year) Lumbar surgery - Dr. De La Paz 2007 [place]ovascular [place] [facility] [place]sees Dr. Galeano now 2009 Hernia repairs- left inguinal and umbili broderick
[2025-05-10 07:03] LABS: MANUAL DIFF FLAG NO
[2025-05-10 07:10] LABS: Hematocrit 40.6 % (42.0-52.0); Hemoglobin 13.7 g/dl (14.0-18.0); Imm Gran Abs Auto 0.02 X10*3/uL (0.00-0.03); Imm Gran Pct Auto 0.4 % (0.0-0.4); Lymphocytes Absolute Auto 1.0 X10*3/uL (1.2-4.9); Mean Corpuscular HGB Conc 33.7 g/dl (31.0-36.0); Mean Corpuscular Hemoglobin 33.2 pg (27.0-33.0); Mean Corpuscular Volume 98.3 fL (80.0-98.0); NRBC Abs Auto 0.000 X10*3/uL (0.0-0.012); NRBC Pct Auto 0.0 /100WBC (0.0-0.2); Platelet Count 156 X10*3/uL (160-400); Red Blood Count 4.13 X10*6/uL (4.60-5.80); White Blood Count 5.5 X10*3/uL (4.8-10.8)
[2025-05-10 07:19] LABS: Alanine Aminotransferase 12 U/L (0-40); Albumin Level 4.3 g/dL (3.5-5.0); Alkaline Phosphatase 69 U/L (39-117); Anion Gap 10 (12-20); Aspartate Amino Transferase 19 U/L (5-37); Blood Urea Nitrogen 19 mg/dL (9-16); Calcium 9.2 mg/dL (8.4-10.2); Carbon Dioxide 28 mmol/L (22-29); Chloride 107 mmol/L (96-108); Estimated Glomerular Filt Rate > 60; Potassium 4.3 mmol/L (3.3-5.1); Sodium 141 mmol/L (135-145); Total Protein 5.7 g/dL (6.5-8.0)
[2025-05-11 16:08] LABS: Kappa/Lambda Lt Ch Free Ratio >0.87 (0.26-1.65)
== END 2025-05-10 06:42 | disposition home or self-care (01) ==
LOC: HO.LAB 06:41
PROVIDERS: PCP Nurse Practitioner Family; Visit Provider Internal Medicine Medical Oncology
DX: C90.00 Multiple myeloma not having achieved remission (principal)
CPT/HCPCS: 36415; 80053; 82784; 83521; 85025; 86334

== ENCOUNTER 2025-05-19 11:23 | Outpatient (AMB) | payer MEDICARE, SELFPAY ==
--- NOTE | 2025-05-19 11:46 | MHC.OFFVIS ---
Intake Visit Reasons: 6m/PSA Intake Note: Patient is present for 6M/PSA Urology Medication:FINASTERIDE Antibiotic Allergy:NONE Blood Thinner:ASPIRIN Paper Cone Machine Operator Required: No Allergies No Known Allergies Allergy (Verified 07/04/25 08:58) HPI Comments Details: Hussein is a very pleasant male. He is a patient of Dr. Liao. He is seen for the following urologic conditions - elevated PSA Six-month follow-up Tolerating medication - 1/2 tab on Thursday, Thursday, Thursday PSA stable Six-month follow-up lab work Elevated PSA PSA 10/29 9.0, 05/30 6.5, 05/31 2.4, 10/31 5.52, 06/01 2.8, 10/02 3.1, 05/03 3.6 Urinary parameters nocturia times to secondary to multiple myeloma, variable stream, occasional hesitancy Trial finasteride TIFFANIE 2+ prostate soft, base nodule right Family history prostate cancer younger brother Plan - continue finasteride - 1/2 tab Thursday, Thursday, Thursday PFSH Medical History Pneumonia Statin intolerance HTN (hypertension) AAA (abdominal aortic aneurysm) Vitamin D deficiency Subclinical hyperthyroidism Multinodular thyroid Pancytopenia Leukopenia Multiple myeloma Surgical History Hx of hernia repair (07/08/18) History of bone marrow biopsy Hx of tooth extraction History of back surgery Hx of umbilical hernia repair (06/28/13) History of AAA (abdominal aortic aneurysm) repair Family History Father CVD (cardiovascular disease) AAA (abdominal aortic aneurysm) Mother Stomach cancer Social History Household Members: Spouse Housing: House Are you a primary care transition mgr to a significant other at home: No Do you presently have visiting nurse or other home services: No Alcohol intake: former Comment: Patient refuses bed alarm Patient Tobacco Use Status: Former Tobacco user Years Smoked: 38 Smoked in Last 30 Days: No e-Cigarette/Vaping Use: Never Used Second Hand Smoke Exposure: No Use of substances other than those prescribed or required for medical reasons: No Special tiesha needs: No Agree to transfusion: Yes Advance Directives: Yes Advance Directives on File: Yes Advance Directives Date on File: 01/11/21 service: Yes Current occupational status: employed and retired Cognitive needs: No Hearing needs: No Vision needs: No Review of Systems Const Denies chills and Denies fever(s) Card Reports no additional complaints and Denies syncope Resp Denies cough GI Denies abdominal pain and Denies heartburn Reports as per HPI and Denies change in libido Neuro Denies syncope Psych Denies change in libido Endo Denies change in libido Physical Exam Const General: cooperative, healthy appearing, comfortable and no acute distress Orientation/consciousness: patient oriented x3 HEENT Face and sinus: Yes normal facial exam Mouth: moist mucous membranes Neck Neck: Yes normal visual inspection, Yes full ROM and Yes trachea midline Chest Chest palpation & inspection: normal inspection of the chest Resp Effort & Inspection: normal respiratory effort, able to speak in complete sentences and no respiratory distress GI Inspection: Yes normal to inspection Back/Spine/Pelvis Cervical Spine: normal cervical lordosis Thoracic/Lumbar Spine: thoracic and lumbar spine normal to inspection Skin General skin exam: no rashes or lesions noted Neuro General: patient oriented x3, gait normal, tone normal and moves all extremities Extrem General: Yes normal to inspection and Yes capillary refill normal Assessment & Plan Assessment & Plan (1) Elevated PSA: Code(s): R97.20 - Elevated prostate specific antigen [PSA] Category: Medical (2) BPH w urinary obs/LUTS: Code(s): N40.1 - Benign prostatic hyperplasia with lower urinary tract symptoms; N13.8 - Other obstructive and reflux uropathy Category: Medical (3) Prostate nodule: Code(s): N40.2 - Nodular prostate without lower urinary tract symptoms Category: Medical Plan Twelve month follow-up PSA Orders: Orders Prostate Specific Antigen 12 Months N40.1 - Benign prostatic hyperplasia with lower urinary tract symptoms, N13.8 - Other obstructive and reflux uropathy Patient Instructions: This note is constructed using voice recognition software. While every effort has been made to ensure accuracy sanitor errors may have been included. Imaging studies, laboratory and physical exam results were discussed and reviewed in detail. No major barriers to patient understanding were identified. An opportunity to ask questions regarding the treatment plan was provided. All questions were answered. The patient expressed understanding and agreement with the above treatment plan. The patient is aware they should contact our office by phone for worsening of their current condition or the appearance of new urologic symptoms. Compliance is encouraged with any medications and followup testing that is ordered. It is a privilege to participate in the urologic care of your patient. If you have any questions or concerns regarding treatment for the above conditions, or other urologic issues, please do not hesitate to contact me. The office telephone contact is [phone]. Sincerely, Dr Bar Ralph MD, [facility] - Urology Compassionate Specialist Care for the Genitourinary System Coding Level of Care Code Est Pt Level 3 (07453) Complex EM visit Add On G2211 Diagnoses Elevated PSA R97.20 BPH w urinary obs/LUTS N40.1; N13.8 Prostate nodule N40.2
--- OUTSIDE RECORDS SUMMARY | 2025-05-19 11:55 | XMS_ITS | Clinical Summary ---
Author Organization [address] Address [address] [place] [address] Phone Care Team Providers Care It Application Support Analyst Name Role Phone Tho Cruz NP Primary [...] EDT [facility] eGFR (-PAKISTANI) >60 >60 mL/min/1. 73m2 05/07/2021 3:12 AM EDT [facility] eGFR (NON -Barbadian) >60 >60 mL/min/1. 73m2 05/07/2021 3:12 AM [...] mmol/L 05/07/2021 3:12 AM EDT [facility] + [facility] Anion Gap 7 5 - 15 mmol/L 05/07/2021 3:12 AM EDT L + [facility] Calcium 8.5 8.5 - 10.1 mg/dL 05/07/2021 3:12 AM EDT + [facility] Blood Venipuncture / Unknown 05/07/2021 2:40 AM EDT 05/07/2021 2:44 AM EDT Vishnu Fontanez MD LAB BLOOD ORDERABLES Fin al Result Performing Organization Address City/State/[facility] Co de Phone Number [facility] [address] [place] [address] from Last 3 Months or Most Recently Relevant to Health Maintenance Insurance MEDICARE MANAGED [facility] , [address] [place] [address] MEDICARE MANAGED [facility] MEDICARE MANAGED [facility] Care Teams It Application Support Analyst Relationship Specialty Start Date End Date Tho Cruz NP [address] [facility] [address] PCP - General Family Medicine 05/07/21
--- OUTSIDE RECORDS SUMMARY | 2025-05-19 11:55 | XMS_ITS | Patient Health Record ---
Author Organization [facility] Address [address] [place] [address] Care Team Providers Care Armed Guard Name Role Phone CLIFF LINTON Primary Care Provider Ana Madsen Unavailable [phone] Allergies Allergen (clinical drug ingredient) Drug/Non Drug [...] Problem Status W/U Status Risk Notes Problem [id number] Encounter for screening for malignant neoplasm of colon (Z12.11) Active confirmed Problem Nausea and vomiting (39039685) Nausea with vomiting, unspecified (R11.2) Active confirmed Problem [id number] Preprocedural examination (Z01.818) Active confirmed Problem 84434332 Constipation, unspecified constipation type (K59.00) Active confirmed Plan Of Treatment No Information Insurance Providers Payer Name Payer Address Payer Phone Subscriber Number Group Number Insured Name Patient Relationship to Insured Coverage Start Date Coverage End Date [facility] [address] [place] [address] [phone] [id number] ANA ORTIZ Self - patient is the insured Medical (General) History Medical History History ICD Code Emphysema-mild Denies [place],DM,CVA,renal disease Arthritis Multiple myeloma 10/2019--sees Dr. Chacorta mendez for chemotherapy HTN Neg. colonoscopy in 08/2009 Hyperlipidemia Abdominal aortic aneurysm with treatment as below Surgical History Surgery Date(Month/Year) Lumbar surgery - Dr. De La Paz 2007 [place] [facility]se[place] Dr. Galeano now 2009 Hernia repairs- left inguinal and umbili broderick
== END 2025-05-19 12:19 | disposition home or self-care (01) ==
LOC: HO.HUSH 11:23
PROVIDERS: PCP Nurse Practitioner Family; Visit Provider Urology
DX: R97.20 Elevated prostate specific antigen [PSA] (principal); N40.1 Benign prostatic hyperplasia with lower urinary tract symptoms; N13.8 Other obstructive and reflux uropathy; N40.2 Nodular prostate without lower urinary tract symptoms
CPT/HCPCS: 99213; G2211

== ENCOUNTER → 2025-05-19 11:23 | Outpatient (BNVA) | payer MEDICARE, SELFPAY | PROVIDERS: PCP Nurse Practitioner Family; Visit Provider Urology | DX: R97.20 Elevated prostate specific antigen [PSA] (principal) | CPT/HCPCS: 99212 ==

== ENCOUNTER 2025-05-25 07:01 | Outpatient (REF) | payer MEDICARE, SELFPAY ==
--- OUTSIDE RECORDS SUMMARY | 2025-05-25 07:03 | XMS_ITS | Clinical Summary ---
Author Organization [address] Address [address] [place] [address] Phone Care Team Providers Care Environmental Law Professor Name Role Phone Tho Cruz NP Primary [...] EDT [facility] eGFR (-UKRAINIAN) >60 >60 mL/min/1. 73m2 05/07/2021 3:12 AM EDT [facility] eGFR (NON -Azerbaijani) >60 >60 mL/min/1. 73m2 05/07/2021 3:12 AM [...] mmol/L 05/07/2021 3:12 AM EDT L + [facility] Anion Gap 7 5 - 15 mmol/L 05/07/2021 3:12 AM EDT L + [facility] Calcium 8.5 8.5 - 10.1 mg/dL 05/07/2021 3:12 AM EDT + [facility] Blood Venipuncture / Unknown 05/07/2021 2:40 AM EDT 05/07/2021 2:44 AM EDT Vishnu Fontanez MD LAB BLOOD ORDERABLES Fin al Result Performing Organization Address City/State/[facility] Co de Phone Number [facility] [address] [place] [address] from Last 3 Months or Most Recently Relevant to Health Maintenance Insurance MEDICARE MANAGED [facility] , [address] [place] [address] MEDICARE MANAGED [facility] MEDICARE MANAGED [facility] Care Teams Environmental Law Professor Relationship Specialty Start Date End Date Tho Cruz NP [address] [facility] [place] [address] PCP - General Family Medicine 05/07/21
--- OUTSIDE RECORDS SUMMARY | 2025-05-25 07:03 | XMS_ITS | Patient Health Record ---
Author Organization [facility] Address [address] [place] [address] Care Team Providers Care Margin Trimmer Name Role Phone CLIFF LINTON Primary Care Provider Ana Madsen Unavailable [phone] Allergies Allergen (clinical drug ingredient) Drug/Non Drug [...] Problem Status W/U Status Risk Notes Problem [id number] Encounter for screening for malignant neoplasm of colon (Z12.11) Active confirmed Problem Nausea and vomiting (76430808) Nausea with vomiting, unspecified (R11.2) Active confirmed Problem [id number] Preprocedural examination (Z01.818) Active confirmed Problem 33576283 Constipation, unspecified constipation type (K59.00) Active confirmed Plan Of Treatment No Information Insurance Providers Payer Name Payer Address Payer Phone Subscriber Number Group Number Insured Name Patient Relationship to Insured Coverage Start Date Coverage End Date [facility] [address] [place] [address] [phone] [id number] ANA ORTIZ Self - patient is the insured Medical (General) History Medical History History ICD Code Emphysema-mild Denies [place],DM,CVA,renal disease Arthritis Multiple myeloma 10/2019--sees Dr. Chacorta mendez for chemotherapy HTN Neg. colonoscopy in 08/2009 Hyperlipidemia Abdominal aortic aneurysm with treatment as below Surgical History Surgery Date(Month/Year) Lumbar surgery - Dr. De La Paz 2007 Endovascular graft placement at [facility] [place] for AAA--sees Dr. Galeano now 2009 Hernia repairs- left inguinal and umbili broderick
== END 2025-05-25 07:02 | disposition home or self-care (01) ==
LOC: HO.LAB 07:01
PROVIDERS: PCP Nurse Practitioner Family; Visit Provider Internal Medicine Medical Oncology
DX: Z13.89 Encounter for screening for other disorder (principal)
CPT/HCPCS: 36415; 80053; 85025

== ENCOUNTER 2025-06-05 08:33 | Emergency (ER) | payer MEDICARE, SELFPAY ==
--- NOTE | ~2025-06-05 | XR_ITS ---
EXAMINATION: XR CHEST CLINICAL INFORMATION: palpitation COMPARISON: February 04, 2024 TECHNIQUE: Frontal view of the chest was obtained. FINDINGS: Lungs are clear. Heart size is within normal limits. Atherosclerotic calcifications are present in the aortic knob. Mild degenerative changes are present in the right shoulder. XR/XR chest 1V IMPRESSION: No acute disease. Electronically signed by: Darren Carpio MD 06/05/2025 10:02 AM EDT
[2025-06-05 08:37] VITALS: BP 156/99; PULSE 70; RESP 16; TEMP 36.3; O2SAT 98; BMI 25.1
[2025-06-05 09:29] VITALS: BP 134/74; PULSE 107; RESP 14; O2SAT 95
--- NOTE | 2025-06-05 09:46 | ECG_ITS ---
Test Reason : palpitations Blood Pressure : */* mmHG Vent. Rate : 76 BPM Atrial Rate : * BPM P-R Int : * ms QRS Dur : 100 ms QT Int : 400 ms P-R-T Axes : * -16 39 degrees QTcB Int : 450 ms Normal sinus rhythm with Premature atrial complexes Abnormal ECG When compared with ECG of 27-Feb-2023 09:30, Premature ventricular complexes are no longer Present Premature atrial complexes are now Present Referred By: Hardy Acosta Electronically Signed By: LAUREN BROWNING MD
--- NOTE | 2025-06-05 09:49 | ED.GENADULT ---
HPI - General Adult General Chief complaint: General Medical Stated complaint: high bp Time Seen by Provider: 06/05/25 09:30 Source: patient Mode of arrival: ambulatory Limitations: no limitations History of Present Illness ED Provider: DR. Acosta HPI narrative: 79-year-old male came in for evaluation of concern of palpitation and having heart rate fluctuate at home from 60 to 90s, patient felt left-sided chest pain localized to the left chest with no other associated symptoms lasted for 3-5 minutes in the morning with not exertion related, patient also suffered from left shoulder bursitis in pain. Related Data Home Medications ?Medication ?Instructions ?Recorded ?Confirmed cholecalciferol (vit D3) 137.5 mcg 1 tab PO DAILY 05/24/23 03/20/25 (5,500 unit)-vit K2 200 mcg tablet omega-3s 300 [id number] 1 cap PO BEDTIME 05/24/23 03/20/25 [id number] oil 1,000 mg capsule (Drummonds-3 Fish Oil) aspirin 81 mg capsule 81 mg PO DAILY Hypertension 04/29/24 03/20/25 Previous Rx's ?Medication ?Instructions ?Recorded ondansetron 8 mg disintegrating 8 mg PO Q8H PRN Nausea 05/27/23 tablet atorvastatin 40 mg tablet 40 mg PO BEDTIME #90 tabs 12/27/24 amlodipine 10 mg tablet (Norvasc) 10 mg PO DAILY #90 tabs 02/21/25 finasteride 5 mg tablet 5 mg PO DAILY 90 days #90 tabs 03/09/25 lisinopril 5 mg tablet 5 mg PO DAILY #90 tabs 03/29/25 metoprolol succinate 100 mg 100 mg PO DAILY #90 tabs 03/29/25 tablet,extended release 24 hr hydrochlorothiazide 25 mg tablet 25 mg PO DAILY #90 tabs 04/09/25 sulfamethoxazole 800 1 tab PO DAILY #90 tabs 04/27/25 mg-trimethoprim 160 mg tablet (Bactrim DS) acyclovir 400 mg tablet 400 mg PO DAILY #90 tabs 05/22/25 potassium chloride 20 mEq 20 meq PO DAILY #90 tabs 06/05/25 tablet,extended release Allergies Allergy/AdvReac Type Severity Reaction Status Date / Time No Known Allergies Allergy Verified 06/05/25 08:39 Review of Systems Review of Systems: All other systems are reviewed and are negative Constitutional: Reports as per HPI and Reports no additional constitutional complaints Eyes: Reports as per HPI and Reports no additional eye complaints Reports system reviewed and no additional complaints, except as documented Cardiovascular: Reports as per HPI and Reports no additional cardiovascular complaints Respiratory: Reports as per HPI and Reports no additional respiratory complaints Gastrointestinal: Reports as per HPI and Reports no additional gastrointestinal complaints Genitourinary: Reports no additional female genitourinary complaints Musculoskeletal: Reports no additional musculoskeletal complaints Skin/Breast: Reports system reviewed and no additional complaints, except as docu Psychiatric: Reports no additional psychiatric complaints Endocrine: Reports no additional endocrine complaints Hematologic/Lymphatic: Reports no additional hematologic/lymphatic complaints Allergic/Immunologic: Reports no additional allergic/immunologic complaints Reports system reviewed and no additional complaints, except as documented and Reports Abnormal speech present [facility] Past Medical History Medical History Pneumonia Statin intolerance HTN (hypertension) AAA (abdominal aortic aneurysm) Vitamin D deficiency Subclinical hyperthyroidism Multinodular thyroid Pancytopenia Leukopenia Multiple myeloma Surgical History Hx of hernia repair (07/08/18) History of bone marrow biopsy Hx of tooth extraction History of back surgery Hx of umbilical hernia repair (06/28/13) History of AAA (abdominal aortic aneurysm) repair Family History Family History Father CVD (cardiovascular disease) AAA (abdominal aortic aneurysm) Mother Stomach cancer Social History Social History Household Members: Spouse Housing: House Are you a primary child care to a significant other at home: No Do you presently have visiting nurse or other home services: No Alcohol intake: former Comment: Patient refuses bed alarm Patient Tobacco Use Status: Former Tobacco user Years Smoked: 38 Smoked in Last 30 Days: No e-Cigarette/Vaping Use: Never Used Second Hand Smoke Exposure: No Use of substances other than those prescribed or required for medical reasons: No Special tiesha needs: No Agree to transfusion: Yes Advance Directives: Yes Advance Directives on File: Yes Advance Directives Date on File: 01/11/21 service: Yes Current occupational status: employed and retired Cognitive needs: No Hearing needs: No Vision needs: No Physical Exam ED Vital Signs: Vital Signs - 24 hr 06/05/25 08:37 06/05/25 09:29 06/05/25 10:35 Temperature 97.3 F Pulse Rate 70 107 H Pulse Rate [Monitor] 76 Respiratory Rate 16 14 Blood Pressure 156/99 H 134/74 Pulse Oximetry 98 95 Oxygen Delivery Method Room Air Room Air BMI result Body Mass Index 25.1 Vital signs have been reviewed and appear to be correct. Blood pressure elevated. Heart rate normal. Respiratory rate normal. Temperature normal. Oxygen saturation normal. Appearance: Alert. Oriented X3. No acute distress. Head: Normal external exam. Normocephalic. Atraumatic. No Hdez signs noted. No raccoon eyes noted Eyes: PERRLA. EOMI. Conjunctiva and sclera normal. Eyelids normal. ENT: TM's Normal. Pharynx normal. Uvula midline. Moist mucous membranes. No trismus noted. No drooling noted. No muffled voice noted. Neck: Normal inspection. Neck supple. FROM. No adenopathy. Thyroid Normal. No meningeal signs. No neck mass noted. CVS: Normal heart rate and rhythm. Heart sound normal. No murmurs noted. Pulses normal throughout. Respiratory: No respiratory distress. Painless inspiration. Breath sounds normal. No wheezes/rales/rhonchi noted. Chest nontender. No accessory muscle usage noted or decreased air movement noted. Abdomen: Soft and nontender. Bowel sounds normal in all 4 quadrants. No distention noted. No organomegaly noted. No visible injury noted. Back: No CVA tenderness. Full range of motion noted. Skin: Skin warm and dry. Normal skin color. Normal skin turgor. No rashes/lesions/lacerations noted. Extremities: No lower extremity edema. Extremities exhibit normal range of motion. Extremities nontender. Neuro: Oriented X 3. Cranial nerve exam: II-XII are grossly intact No motor deficit. No sensory deficit. Reflexes normal. Course Reevaluation(s) Reevaluation #1: 79-year-old male came in for evaluation after having palpitation, found to have atrial fibrillation with good rate control. given patient with other comorbidity including history of AAA patient was instructed to follow-up with Dr. Allen for further evaluation of the atrial fibrillation. Time: 14:05 Medical Decision Making Differential Diagnosis Differential Diagnoses: The differential diagnosis associated with the presentation includes ( atrial dysrhythmia, ventricular dysrhythmia, dehydration, electrolyte derangement, severe anemia, ACS, pneumonia, pneumothorax, pleural effusion.) Admission/Observation Consideration of admission/observation: Escalation of care including admission/observation considered Lab Data MDM Lab Attestation statement: I reviewed the patient's lab results. 06/05/25 10:10 06/05/25 10:10 Labs: Lab Results 06/05/25 06/05/25 06/05/25 Range/Units 10:06 10:10 11:54 WBC 5.7 (4.8-10.8) X10*3/uL RBC 4.05 L (4.60-5.80) X10*6/uL Hgb 13.7 L (14.0-18.0) g/dl Hct 40.6 L (42.0-52.0) % MCV 100.2 H (80.0-98.0) fL MCH 33.8 H (27.0-33.0) pg MCHC 33.7 (31.0-36.0) g/dl RDW 13.5 (11.0-16.0) % Plt Count 133 L (160-400) X10*3/uL MPV 11.2 (9.4-12.4) fL Immature Gran % (Auto) 0.5 H (0.0-0.4) % Neut % (Auto) 72.5 (45-73) % Lymph % (Auto) 15.0 L (20-40) % George % (Auto) 10.6 (2-11) % Eos % (Auto) 0.7 (0-4) % Baso % (Auto) 0.7 (0-2) % Lymph # (Auto) 0.9 L (1.2-4.9) X10*3/uL George # (Auto) 0.6 (0.1-1.2) X10*3/uL Eos # (Auto) 0.0 (0.0-0.4) X10*3/uL Baso # (Auto) 0.0 (0.0-0.2) X10*3/uL Abs Immat Gran (auto) 0.03 (0.00-0.03) X10*3/uL Absolute Neuts (auto) 4.1 (2.0-8.3) x10*3/uL Absolute Nucleated RBC 0.000 (0.0-0.012) X10*3/uL Nucleated RBC % (auto) 0.0 (0.0-0.2) /100WBC PT (10.9-12.4) SEC INR (0.9-1.1) Sodium 141 (135-145) mmol/L Potassium 4.2 (3.3-5.1) mmol/L Chloride 111 H (96-108) mmol/L Carbon Dioxide 24 (22-29) mmol/L Anion Gap 10 L (12-20) BUN 14 (9-16) mg/dL Creatinine 0.82 (0.5-1.4) mg/dL Estim Creat Clear Calc 69.4 Estimated GFR > 60 Random Glucose 101 (60-115) mg/dL Calcium 8.6 D (8.4-10.2) mg/dL Total Bilirubin 0.7 (0.0-1.0) mg/dL Direct Bilirubin 0.3 (0.0-0.5) mg/dL AST 18 (5-37) U/L ALT 11 (0-40) U/L Alkaline Phosphatase 68 (39-117) U/L Troponin I High Sens 2.7 (<3.5-35.0) ng/L B-Natriuretic Peptide 180 H (<100) pg/mL Total Protein 6.0 L (6.5-8.0) g/dL Albumin 4.3 (3.5-5.0) g/dL Lipase 13 (8-78) U/L Urine Color Yellow Urine Appearance Clear Urine pH 7.0 (5.0-9.0) Ur Specific [place] 1.010 (1.005-1.025) Urine Protein Negative (Neg-Trace) mg/dL Urine Glucose (UA) Negative (Negative) mg/dL Urine Ketones Negative (Negative) mg/dL Urine Blood Negative (Negative) Urine Nitrite Negative (Negative) Ur Leukocyte Esterase Negative (Negative) Influenza Type A (PCR) NEGATIVE (Negative) Influenza Type B (PCR) NEGATIVE (Negative) RSV RNA Qual (PCR) NEGATIVE (Negative) SARS-CoV-2 RNA (RT-PCR) NEGATIVE (Negative) 06/05/25 Range/Units 13:00 WBC (4.8-10.8) X10*3/uL RBC (4.60-5.80) X10*6/uL Hgb (14.0-18.0) g/dl Hct (42.0-52.0) % MCV (80.0-98.0) fL MCH (27.0-33.0) pg MCHC (31.0-36.0) g/dl RDW (11.0-16.0) % Plt Count (160-400) X10*3/uL MPV (9.4-12.4) fL Immature Gran % (Auto) (0.0-0.4) % Neut % (Auto) (45-73) % Lymph % (Auto) (20-40) % George % (Auto) (2-11) % Eos % (Auto) (0-4) % Baso % (Auto) (0-2) % Lymph # (Auto) (1.2-4.9) X10*3/uL George # (Auto) (0.1-1.2) X10*3/uL Eos # (Auto) (0.0-0.4) X10*3/uL Baso # (Auto) (0.0-0.2) X10*3/uL Abs Immat Gran (auto) (0.00-0.03) X10*3/uL Absolute Neuts (auto) (2.0-8.3) x10*3/uL Absolute Nucleated RBC (0.0-0.012) X10*3/uL Nucleated RBC % (auto) (0.0-0.2) /100WBC PT 11.6 (10.9-12.4) SEC INR 1.0 (0.9-1.1) Sodium (135-145) mmol/L Potassium (3.3-5.1) mmol/L Chloride (96-108) mmol/L Carbon Dioxide (22-29) mmol/L Anion Gap (12-20) BUN (9-16) mg/dL Creatinine (0.5-1.4) mg/dL Estim Creat Clear Calc Estimated GFR Random Glucose (60-115) mg/dL Calcium (8.4-10.2) mg/dL Total Bilirubin (0.0-1.0) mg/dL Direct Bilirubin (0.0-0.5) mg/dL AST (5-37) U/L ALT (0-40) U/L Alkaline Phosphatase (39-117) U/L Troponin I High Sens < 2.7 (<3.5-35.0) ng/L B-Natriuretic Peptide (<100) pg/mL Total Protein (6.5-8.0) g/dL Albumin (3.5-5.0) g/dL Lipase (8-78) U/L Urine Color Urine Appearance Urine pH (5.0-9.0) Ur Specific [place] (1.005-1.025) Urine Protein (Neg-Trace) mg/dL Urine Glucose (UA) (Negative) mg/dL Urine Ketones (Negative) mg/dL Urine Blood (Negative) Urine Nitrite (Negative) Ur Leukocyte Esterase (Negative) Influenza Type A (PCR) (Negative) Influenza Type B (PCR) (Negative) RSV RNA Qual (PCR) (Negative) SARS-CoV-2 RNA (RT-PCR) (Negative) Independent Interpretation I performed an independent interpretation of an: Plain X-Ray ( Chest: No acute disease.) Radiology Impression Discussion of test interpretation with radiology: I have reviewed the radiologist's reading. Discharge Plan Discharge Clinical Impression: Heart palpitations Patient Disposition: Home, Self-Care Instructions: Heart Palpitations (ED) Prescriptions: No Action ondansetron 8 mg tablet,disintegrating 8 mg PO Q8H PRN (Reason: Nausea) 4RF atorvastatin 40 mg tablet 40 mg PO BEDTIME Qty: 90 3RF amlodipine [Norvasc] 10 mg tablet 10 mg PO DAILY Qty: 90 1RF finasteride 5 mg tablet 5 mg PO DAILY 90 Days Qty: 90 1RF metoprolol succinate 100 mg tablet extended release 24 hr 100 mg PO DAILY Qty: 90 1RF lisinopril 5 mg tablet 5 mg PO DAILY Qty: 90 1RF hydrochlorothiazide 25 mg tablet 25 mg PO DAILY Qty: 90 1RF sulfamethoxazole-trimethoprim [Bactrim DS] 800-160 mg Tablet 1 tab PO DAILY Qty: 90 6RF potassium chloride 20 mEq Tablet Extended Release 20 meq PO DAILY Qty: 90 2RF aspirin 81 mg Capsule 81 mg PO DAILY MDD 81 Rx Instructions: takes 3 times a week acyclovir 400 mg Tablet 400 mg PO DAILY Qty: 90 3RF Drummonds-3 Fish Oil 300-1,000 mg Capsule 1 cap PO BEDTIME vitamin D3-vitamin K2 137.5-200 mcg Tablet 1 tab PO DAILY Referrals: Tho Cruz FNP-BC [Primary Care Provider, Internal Medicine] Fer Allen MD [Physician, Cardiology] Print Language: Mohawk
--- OUTSIDE RECORDS SUMMARY | 2025-06-05 10:11 | XMS_ITS | Patient Health Record ---
Author Organization [facility] Address [address] [place] [address] Care Team Providers Care Boatswain Mate Name Role Phone CLIFF LINTON Primary Care Provider Ana Madsen Unavailable [phone] Allergies Allergen (clinical drug ingredient) Drug/Non Drug [...] Problem Status W/U Status Risk Notes Problem [id number] Encounter for screening for malignant neoplasm of colon (Z12.11) Active confirmed Problem Nausea and vomiting (15219481) Nausea with vomiting, unspecified (R11.2) Active confirmed Problem [id number] Preprocedural examination (Z01.818) Active confirmed Problem 61022075 Constipation, unspecified constipation type (K59.00) Active confirmed Plan Of Treatment No Information Insurance Providers Payer Name Payer Address Payer Phone Subscriber Number Group Number Insured Name Patient Relationship to Insured Coverage Start Date Coverage End Date [facility] [address] [place] [phone] [id number] ANA ORTIZ Self - patient is the insured Medical (General) History Medical History History ICD Code Emphysema-mild Denies [place],DM,CVA,renal disease Arthritis Multiple myeloma 10/2019--sees Dr. Chacorta mendez for chemotherapy HTN Neg. colonoscopy in 08/2009 Hyperlipidemia Abdominal aortic aneurysm with treatment as below Surgical History Surgery Date(Month/Year) Lumbar surgery - Dr. De La Paz 2007 [place] [facility] [place]sees Dr. Galeano now 2009 Hernia repairs- left inguinal and umbili broderick
--- OUTSIDE RECORDS SUMMARY | 2025-06-05 10:12 | XMS_ITS | Clinical Summary ---
Author Organization [facility] Address [address] [place] [address] Phone Care Team Providers Care Inset Cutter Name Role Phone Amena Kaplan MD Primary Care Provider Allergies No known active allergies Medications amLODIPine (NORVASC) 10 MG tablet Dose: Not available; Form: Not available; Route: PO; Frequency: Not available; Directions: As directed; Details: Dispense: Tablet(s); Date: 03/31/2013 03/31/2013 Active aspirin 81 MG EC tablet Take 1 tablet by mouth daily. 03/31/2013 Active omega-3 fatty acids 500 mg Cap Take 2 capsules by mouth 3 (three) times a day. 03/31/2013 Active hydroCHLOROthia zide (HYDRODIURIL) 25 MG tablet Take 1 tablet by mouth daily. 03/31/2013 Active lisinopril (PRINIVIL,ZESTR IL) 5 MG tablet Take 1 tablet by mouth daily. 03/31/2013 Active metoprolol succinate (TOPROL-XL) 100 MG 24 hr tablet Dose: Not available; Form: Not available; Route: PO; Frequency: Not available; Directions: As directed, once daily ; Details: Dispense: Tablet(s); Date: 03/31/2013 03/31/2013 Active multivitamin per tablet Take 1 tablet by mouth daily. 03/31/2013 Active omeprazole (PRILOSEC) 20 mg TbEC Take 1 tablet by mouth daily. 03/31/2013 Active simvastatin (ZOCOR) 40 MG tablet Dose: Not available; Form: Not available; Route: PO; Frequency: Not available; Directions: As directed; Details: Dispense: Tablet(s); Date: 03/31/2013 03/31/2013 Active Active Problems Problem Noted Date Diagnosed Date Hypertension 03/02/2015 Overview (10/16/2015): Hypertensive disorder Abdominal aortic aneurysm 04/26/2012 Overview (12/30/2014): Abdominal aortic aneurysm Social History Tobacco Use Types Packs/Day Years Used Date Smoking Tobacco: Former Education Answer Date Recorded Are you interested in more education? Not on ruby e 03/15/2023 Are you concerned about learning? Not on file 03/15/2023 No 03/15/2023 No 03/15/2023 Digital Access Answer Date Recorded No 04/05/2023 No 04/05/2023 No 04/05/2023 Reliable internet access at home? Not on file 04/05/2023 Device with a working camera? Not on file Sex and Gender Information Value Date Recorded Sex Assigned at Not on file Legal Sex Male 6:49 PM EST Gender Identity Not on file Sexual Orientation Not on file Last Filed Vital Signs Vital Sign Reading Time Taken Comments Blood Pressure 143/67 12/19/2019 4:20 PM EST Pulse 66 12/19/2019 4:20 PM EST Temperature 36.4 C (97.5 F) 12/19/2019 4:20 PM EST Respiratory Rate 16 12/19/2019 4:20 PM EST Oxygen Saturation 98% 12/19/2019 4:20 PM EST Inhaled Oxygen Concentration - - Weight 75.8 kg (167 lb 1.7 oz) 12/19/2019 4:20 P M EST dfci Height 170.6 cm (5' 7.17 ) 12/19/2019 4:20 PM ES T dfci Body Mass Index 26.04 12/19/2019 4:20 PM EST Plan of Treatment Health Maintenance Due Date Last Done Comments BLOOD PRESSURE 1945 LIPID PANEL 1945 DEPRESSION SCREENING 1958 SMOKING Hx and SMOKELESS TOBACCO SCREENING 1959 HEPATITIS C SCREENING 1964 ZOSTER VACCINES (2 of 3) 06/07/2016 04/12/2016, 04/0 02/2016 PNEUMOCOCCAL VACCINES (50+ years) (2 of 2 - PCV) 08/21/2017 08/21/2016 CREATININE LEVEL 12/19/2020 12/19/2019, 02/2016, 05/17/2010, Additional history exists POTASSIUM LEVEL 12/19/2020 12/19/2019, 04/09, 04/25/2010, Additional history exists RSV VACCINE (1 - 1-dose 75+ series) 2021 COVID-19 VACCINE (3 - season) 2024 02/13/2021, 01/16/2021 Adult Td,Tdap Booster 02/07/2026 02/08/2016 HEPATITIS A VACCINES Aged Out No long er eligible based on patient's age to complete this topic HIB VACCINES Aged Out No longer eligi ble based on patient's age to complete this topic MENINGOCOCCAL VACCINES (ACWY) Aged Out No longer eligible based on patient's age to complete this topic MENINGOCOCCAL VACCINES (B) Aged Out N o longer eligible based on patient's age to complete this topic Medical Devices Not on file Procedures Procedure Name Priority Date/Time Associated Diagnosis Comments COMPREHENSIVE METABOLIC PANEL Routine 12/19/2019 1:58 PM EST Multiple myeloma, remission status unspecified from Last 3 Months or Most Recently Relevant to Health Maintenance Results * (ABNORMAL) Comprehensive metabolic panel (12/19/2019 1:58 PM EST) SODIUM 135(L) 136 - 145 mmol/L [facility] LIC# [id number] POTASSIUM 4.1 3.4 - 5.1 mmol/L [facility] LIC# [id number] CHLORIDE 101 98 - 107 mmol/L [facility] LIC# [id number] CO2 29 22 - 31 mmol/L [facility] LIC# [id number] BUN 13 6 - 23 mg/dL [facility] LIC# [id number] CREATININE 0.79 0.50 - 1.20 mg/dL [facility] LIC# [id number] GLUCOSE 99 70 - 100 mg/dL [facility] LIC# [id number] ALBUMIN 3.0(L) 3.5 - 5.2 g/dL [facility] LIC# [id number] TOTAL PROTEIN 7.9 6.4 - 8.3 g/dL [facility] LIC# [id number] CALCIUM 8.8 8.8 - 10.7 mg/dL [facility] LIC# [id number] ALKALINE PHOSPHATASE 75 40 - 129 U/L [facility] LIC# [id number] TOTAL BILIRUBIN 0.3 0.2 - 1.2 mg/dL [facility] LIC# [id number] AST 16 <41 U/L [facility] LIC# [id number] ALT 24 <42 U/L [facility] LIC# [id number] GLOBULIN 4.9(H) 1.9 - 4.1 g/dL [facility] LIC# [id number] EGFR 89 >59 mL/min/1.7 3m2 [facility] LIC# [id number] Comment:If patient is Tara n-Solomon Islander, multiply result by 1.159. Estimated glomerular filtration rate calculated using the CKD-EPI equation. ANION GAP 5(L) 7 - 17 mmol/L [facility] LIC# [id number] Blood 12/19/2019 1:58 PM EST 12/19/2019 2:12 PM EST Abel Jin MD LAB BLOOD ORDERABLES Final Result [facility] LIC# [id number] [address] [place] [address] from Last 3 Months or Most Recently Relevant to Health Maintenance Insurance GENERIC MEDICARE REPLACEMENT GENERIC MEDICARE REPLACEMENT GENERIC MEDICARE REPLACEMENT GENERIC MEDICARE REPLACEMENT GENERIC MEDICARE REPLACEMENT GENERIC MEDICARE REPLACEMENT GENERIC MEDICARE REPLACEMENT GENERIC MEDICARE REPLACEMENT GENERIC MEDICARE REPLACEMENT Care Teams Inset Cutter Relationship Specialty Start Date End Date Amena Kaplan MD [address] [facility] [place] [address] PCP - General Internal Medicine 12/19/19 Additional Source Comments The information contained in this document represents components of the legal health record. It is not the complete legal health record.[facility]
--- OUTSIDE RECORDS SUMMARY | 2025-06-05 10:12 | XMS_ITS | Clinical Summary ---
Author Organization [address] Address [address] [place] [address] Phone Care Team Providers Care Change Management Consultant Name Role Phone Tho Cruz NP Primary [...] EDT [facility] eGFR (-CHADIAN) >60 >60 mL/min/1. 73m2 05/07/2021 3:12 AM EDT [facility] eGFR (NON -Colombian) >60 >60 mL/min/1. 73m2 05/07/2021 3:12 AM [...] mmol/L 05/07/2021 3:12 AM EDT L + [facility] Anion Gap 7 5 - 15 mmol/L 05/07/2021 3:12 AM EDT L + [facility] Calcium 8.5 8.5 - 10.1 mg/dL 05/07/2021 3:12 AM EDT + [facility] Blood Venipuncture / Unknown 05/07/2021 2:40 AM EDT 05/07/2021 2:44 AM EDT Vishnu Fontanez MD LAB BLOOD ORDERABLES Fin al Result Performing Organization Address City/State/[facility] Co de Phone Number [facility] [address] [place] [address] from Last 3 Months or Most Recently Relevant to Health Maintenance Insurance MEDICARE MANAGED [facility] [address] [place] [address] MEDICARE [facility]ED [facility] MEDICARE MANAGED [facility] Care Teams Change Management Consultant Relationship Specialty Start Date End Date Tho Cruz NP [address] [place] [address] PCP - General Family Medicine 05/07/21
[2025-06-05 10:15] LABS: MANUAL DIFF FLAG NO
[2025-06-05 10:21] LABS: Hematocrit 40.6 % (42.0-52.0); Hemoglobin 13.7 g/dl (14.0-18.0); Imm Gran Abs Auto 0.03 X10*3/uL (0.00-0.03); Imm Gran Pct Auto 0.5 % (0.0-0.4); Lymphocytes Absolute Auto 0.9 X10*3/uL (1.2-4.9); Mean Corpuscular HGB Conc 33.7 g/dl (31.0-36.0); Mean Corpuscular Hemoglobin 33.8 pg (27.0-33.0); Mean Corpuscular Volume 100.2 fL (80.0-98.0); NRBC Abs Auto 0.000 X10*3/uL (0.0-0.012); NRBC Pct Auto 0.0 /100WBC (0.0-0.2); Platelet Count 133 X10*3/uL (160-400); Red Blood Count 4.05 X10*6/uL (4.60-5.80); White Blood Count 5.7 X10*3/uL (4.8-10.8)
[2025-06-05 10:35] VITALS: PULSE 76
[2025-06-05 10:35] LABS: Alanine Aminotransferase 11 U/L (0-40); Albumin Level 4.3 g/dL (3.5-5.0); Alkaline Phosphatase 68 U/L (39-117); Anion Gap 10 (12-20); Aspartate Amino Transferase 18 U/L (5-37); Blood Urea Nitrogen 14 mg/dL (9-16); Calcium 8.6 mg/dL (8.4-10.2); Carbon Dioxide 24 mmol/L (22-29); Chloride 111 mmol/L (96-108); Creatinine Clr Calc Pharmacy 69.4; Estimated Glomerular Filt Rate > 60; Lipase 13 U/L (8-78); Potassium 4.2 mmol/L (3.3-5.1); Sodium 141 mmol/L (135-145); Total Protein 6.0 g/dL (6.5-8.0)
--- NOTE | 2025-06-05 10:37 | PC.NURSE ---
Pt coming in today with concerns of his BP, stating he has checked it multiple times this morning and his numbers have been higher than normal, BP stable here in ED. Pt is undergoing current palliative tx for MM with Dr. Beach, next chemo this thursday. Denies SOB/CP/N/v/ denies palpitations at this time. Pt is on multiple mediations for BP, including a blood thinner at this time. Pt is resting comfortably in bed on monitor, awaiting labs/ testing results. Pt at bedside, call zambrano within reach.
[2025-06-05 10:38] LABS: B Type Natriuretic Peptide 180 pg/mL (<100)
[2025-06-05 10:44] LABS: Troponin-I High Sensitivity 2.7 ng/L (<3.5-35.0)
[2025-06-05 10:55] LABS: Resp Syncy Virus RNA Qual PCR NEGATIVE (Negative); SARS COV2 PCR INHOUSE NEGATIVE (Negative)
[2025-06-05 12:04] LABS: Appearance Urine Clear; Glucose Urine UA Negative (Negative); PH 7.0 (5.0-9.0); Specific Gravity - Urine 1.010 (1.005-1.025)
[2025-06-05 13:20] LABS: INTERNATIONAL NORM RATIO 1.0 (0.9-1.1); Prothrombin Time 11.6 SEC (10.9-12.4)
[2025-06-05 13:29] LABS: Troponin-I High Sensitivity < 2.7 ng/L (<3.5-35.0)
[2025-06-05 14:25] VITALS: BP 125/72; PULSE 76; RESP 16; TEMP 36.5; O2SAT 98
[2025-06-05 14:42] VITALS: BP 125/72; PULSE 76; RESP 16; TEMP 36.5; O2SAT 98
== END 2025-06-05 14:45 | disposition home or self-care (01) ==
PROVIDERS: Emergency Provider Emergency Medicine; PCP Nurse Practitioner Family
DX: R00.2 Palpitations (principal); I48.91 Unspecified atrial fibrillation; M25.512 Pain in left shoulder; Z03.818 Encounter for observation for suspected exposure to other biological agents ruled out; I10 Essential (primary) hypertension; E78.5 Hyperlipidemia, unspecified; Z79.02 Long term (current) use of antithrombotics/antiplatelets; Z79.899 Other long term (current) drug therapy
CPT/HCPCS: 36415; 71045; 80048; 80076; 81003; 83690; 83880; 84484; 85025; 85610; 87637; 93005; 99283; 99284

== ENCOUNTER → 2025-06-05 09:46 | Outpatient (BNV) | payer MEDICARE, SELFPAY | PROVIDERS: Emergency Provider Emergency Medicine; PCP Nurse Practitioner Family; Visit Provider Radiology Diagnostic Radiology | DX: R00.2 Palpitations (principal) | CPT/HCPCS: 71045 ==

== ENCOUNTER → 2025-06-05 09:46 | Outpatient (BNV) | payer MEDICARE, SELFPAY | PROVIDERS: Emergency Provider Emergency Medicine; PCP Nurse Practitioner Family; Visit Provider Internal Medicine Cardiovascular Disease | DX: I49.1 Atrial premature depolarization (principal) | CPT/HCPCS: 93010 ==

== ENCOUNTER 2025-06-08 06:31 | Outpatient (REF) | payer MEDICARE, SELFPAY ==
--- OUTSIDE RECORDS SUMMARY | 2025-06-08 06:33 | XMS_ITS | Clinical Summary ---
Author Organization [facility] Address [address] [place] [address] Phone Care Team Providers Care Steam Shovelman Name Role Phone Amena Kaplan MD Primary [...] EST) SODIUM 135(L) 136 - 145 mmol/L [facility] LIC# [id number] POTASSIUM 4.1 3.4 - 5.1 mmol/L [facility] LIC# [id number] CHLORIDE 101 98 - 107 mmol/L [facility] LIC# [id number] CO2 29 22 - 31 mmol/L [facility] LIC# [id number] BUN 13 6 - 23 mg/dL [facility] LIC# [id number] CREATININE 0.79 0.50 - 1.20 mg/dL [facility] LIC# [id number] GLUCOSE 99 70 - 100 mg/dL [facility] LIC# [id number] ALBUMIN 3.0(L) 3.5 - 5.2 g/dL [facility] LIC# [id number] TOTAL PROTEIN 7.9 6.4 - 8.3 g/dL [facility] LIC# [id number] CALCIUM 8.8 8.8 - 10.7 mg/dL [facility] LIC# [id number] ALKALINE PHOSPHATASE 75 40 - 129 U/L [facility] LIC# [id number] TOTAL BILIRUBIN 0.3 0.2 - 1.2 mg/dL [facility] LIC# [id number] AST 16 <41 U/L [facility] LIC# [id number] ALT 24 <42 U/L [facility] LIC# [id number] GLOBULIN 4.9(H) 1.9 - 4.1 g/dL [facility] LIC# [id number] EGFR 89 >59 mL/min/1.7 3m2 [facility] LIC# [id number] Comment:If patient is Tara n-Guyanese, multiply result by 1.159. Estimated glomerular filtration rate calculated using the CKD-EPI equation. ANION GAP 5(L) 7 - 17 mmol/L [facility] LIC# [id number] Blood 12/19/2019 1:58 PM EST 12/19/2019 2:12 PM EST Abel Jin MD LAB BLOOD ORDERABLES Final Result [facility] LIC# [id number] [address] [place] [address] from Last 3 Months or Most Recently Relevant to Health Maintenance Insurance GENERIC MEDICARE REPLACEMENT GENERIC MEDICARE REPLACEMENT GENERIC MEDICARE REPLACEMENT GENERIC MEDICARE REPLACEMENT GENERIC MEDICARE REPLACEMENT GENERIC MEDICARE REPLACEMENT GENERIC MEDICARE REPLACEMENT GENERIC MEDICARE REPLACEMENT GENERIC MEDICARE REPLACEMENT Care Teams Steam Shovelman Relationship Specialty Start Date End Date Amena Kaplan MD [address] [place] [address] PCP - General Internal Medicine 12/19/19 Additional Source Comments The information contained in this document represents components of the legal health record. It is not the complete legal health record.[facility]
--- OUTSIDE RECORDS SUMMARY | 2025-06-08 06:33 | XMS_ITS | Patient Health Record ---
Author Organization [facility] Address [address] [place] [address] Care Team Providers Care Staff Educator Name Role Phone CLIFF LINTON Primary Care Provider Ana Madsen Unavailable [phone] Allergies Allergen (clinical drug ingredient) Drug/Non Drug [...] Problem Status W/U Status Risk Notes Problem [id number] Encounter for screening for malignant neoplasm of colon (Z12.11) Active confirmed Problem Nausea and vomiting (84255270) Nausea with vomiting, unspecified (R11.2) Active confirmed Problem [id number] Preprocedural examination (Z01.818) Active confirmed Problem 22070617 Constipation, unspecified constipation type (K59.00) Active confirmed Plan Of Treatment No Information Insurance Providers Payer Name Payer Address Payer Phone Subscriber Number Group Number Insured Name Patient Relationship to Insured Coverage Start Date Coverage End Date [facility] [address] [place] [address] [id number] ANA ORTIZ Self - patient is the insured Medical (General) History Medical History History ICD Code Emphysema-mild Denies GA,DM,CVA,renal disease Arthritis Multiple myeloma 10/2019--sees Dr. Chacorta mendez for chemotherapy HTN Neg. colonoscopy in 08/2009 Hyperlipidemia Abdominal aortic aneurysm with treatment as below Surgical History Surgery Date(Month/Year) Lumbar surgery - Dr. De La Paz 2007 Endovascular graft placement at [facility] for AAA--sees Dr. Galeano now 2009 Hernia repairs- left inguinal and umbili broderick
--- OUTSIDE RECORDS SUMMARY | 2025-06-08 06:33 | XMS_ITS | Clinical Summary ---
Author Organization [address] Address [address] [place] [address] Phone Care Team Providers Care Cardiology Technologist Name Role Phone Tho Cruz NP Primary [...] EDT [facility] eGFR (-PRYDEINIG) >60 >60 mL/min/1. 73m2 05/07/2021 3:12 AM EDT [facility] eGFR (NON -East Timorese) >60 >60 mL/min/1. 73m2 05/07/2021 3:12 AM [...] mmol/L 05/07/2021 3:12 AM EDT L + [facility] Anion Gap 7 5 - 15 mmol/L 05/07/2021 3:12 AM EDT L + [facility] Calcium 8.5 8.5 - 10.1 mg/dL 05/07/2021 3:12 AM EDT + [facility] Blood Venipuncture / Unknown 05/07/2021 2:40 AM EDT 05/07/2021 2:44 AM EDT Vishnu Fontanez MD LAB BLOOD ORDERABLES Fin al Result Performing Organization Address City/State/[facility] Co de Phone Number [facility] [address] [place] [address] from Last 3 Months or Most Recently Relevant to Health Maintenance Insurance MEDICARE [place] [facility] [address] [place] [address] [place] [facility] [place]IC[place] [facility] Care Teams Cardiology Technologist Relationship Specialty Start Date End Date Tho Cruz NP [address] [facility] [address] PCP - General Family Medicine 05/07/21
[2025-06-08 06:54] LABS: MANUAL DIFF FLAG NO
[2025-06-08 07:09] LABS: Hematocrit 40.3 % (42.0-52.0); Hemoglobin 14.0 g/dl (14.0-18.0); Imm Gran Abs Auto 0.05 X10*3/uL (0.00-0.03); Imm Gran Pct Auto 0.9 % (0.0-0.4); Lymphocytes Absolute Auto 1.2 X10*3/uL (1.2-4.9); Mean Corpuscular HGB Conc 34.7 g/dl (31.0-36.0); Mean Corpuscular Hemoglobin 34.2 pg (27.0-33.0); Mean Corpuscular Volume 98.5 fL (80.0-98.0); NRBC Abs Auto 0.000 X10*3/uL (0.0-0.012); NRBC Pct Auto 0.0 /100WBC (0.0-0.2); Platelet Count 156 X10*3/uL (160-400); Red Blood Count 4.09 X10*6/uL (4.60-5.80); White Blood Count 5.7 X10*3/uL (4.8-10.8)
[2025-06-08 07:22] LABS: Alanine Aminotransferase 12 U/L (0-40); Albumin Level 4.5 g/dL (3.5-5.0); Alkaline Phosphatase 69 U/L (39-117); Anion Gap 12 (12-20); Aspartate Amino Transferase 21 U/L (5-37); Blood Urea Nitrogen 16 mg/dL (9-16); Calcium 9.0 mg/dL (8.4-10.2); Carbon Dioxide 27 mmol/L (22-29); Chloride 106 mmol/L (96-108); Estimated Glomerular Filt Rate > 60; Potassium 3.8 mmol/L (3.3-5.1); Sodium 141 mmol/L (135-145); Total Protein 6.2 g/dL (6.5-8.0)
[2025-06-09 10:34] LABS: Kappa/Lambda Lt Ch Free Ratio >0.80 (0.26-1.65)
== END 2025-06-08 06:32 | disposition home or self-care (01) ==
LOC: HO.LAB 06:31
PROVIDERS: PCP Nurse Practitioner Family; Visit Provider Internal Medicine Medical Oncology
DX: C90.00 Multiple myeloma not having achieved remission (principal)
CPT/HCPCS: 36415; 80053; 82784; 83521; 85025; 86334

== ENCOUNTER 2025-06-22 06:04 | Outpatient (REF) | payer MEDICARE, SELFPAY ==
--- OUTSIDE RECORDS SUMMARY | 2025-06-22 06:06 | XMS_ITS | Clinical Summary ---
Author Organization [facility] Address [address] [place] [address] Phone Care Team Providers Care Oil Well Services Supervisor Name Role Phone Amena Kaplan MD Primary [...] EST) SODIUM 135(L) 136 - 145 mmol/L [facility] LIC# [id number] POTASSIUM 4.1 3.4 - 5.1 mmol/L [facility] LIC# [id number] CHLORIDE 101 98 - 107 mmol/L [facility] LIC# [id number] CO2 29 22 - 31 mmol/L [facility] LIC# [id number] BUN 13 6 - 23 mg/dL [facility] LIC# [id number] CREATININE 0.79 0.50 - 1.20 mg/dL [facility] LIC# [id number] GLUCOSE 99 70 - 100 mg/dL [facility] LIC# [id number] ALBUMIN 3.0(L) 3.5 - 5.2 g/dL [facility] LIC# [id number] TOTAL PROTEIN 7.9 6.4 - 8.3 g/dL [facility] LIC# [id number] CALCIUM 8.8 8.8 - 10.7 mg/dL [facility] LIC# [id number] ALKALINE PHOSPHATASE 75 40 - 129 U/L [facility] LIC# [id number] TOTAL BILIRUBIN 0.3 0.2 - 1.2 mg/dL [facility] LIC# [id number] AST 16 <41 U/L [facility] LIC# [id number] ALT 24 <42 U/L [facility] LIC# [id number] GLOBULIN 4.9(H) 1.9 - 4.1 g/dL [facility] LIC# [id number] EGFR 89 >59 mL/min/1.7 3m2 [facility] LIC# [id number] Comment:If patient is Tara n-Bulgarian, multiply result by 1.159. Estimated glomerular filtration rate calculated using the CKD-EPI equation. ANION GAP 5(L) 7 - 17 mmol/L [facility] LIC# [id number] Blood 12/19/2019 1:58 PM EST 12/19/2019 2:12 PM EST Abel Jin MD LAB BLOOD ORDERABLES Final Result [facility] LIC# [id number] [address] [place] [address] from Last 3 Months or Most Recently Relevant to Health Maintenance Insurance GENERIC MEDICARE REPLACEMENT GENERIC MEDICARE REPLACEMENT GENERIC MEDICARE REPLACEMENT GENERIC MEDICARE REPLACEMENT GENERIC MEDICARE REPLACEMENT GENERIC MEDICARE REPLACEMENT GENERIC MEDICARE REPLACEMENT GENERIC MEDICARE REPLACEMENT GENERIC MEDICARE REPLACEMENT Care Teams Oil Well Services Supervisor Relationship Specialty Start Date End Date Amena Kaplan MD [address] [facility] [address] PCP - General Internal Medicine 12/19/19 Additional Source Comments The information contained in this document represents components of the legal health record. It is not the complete legal health record.[facility]
--- OUTSIDE RECORDS SUMMARY | 2025-06-22 06:06 | XMS_ITS | Clinical Summary ---
Author Organization [address] Address [address] [place] [address] Phone Care Team Providers Care Char House Supervisor Name Role Phone Tho Cruz NP Primary [...] EDT [facility] eGFR (-SERBIAN) >60 >60 mL/min/1. 73m2 05/07/2021 3:12 AM EDT [facility] eGFR (NON -[place]atican Citizen) >60 >60 mL/min/1. 73m2 05/07/2021 3:12 AM [...] mmol/L 05/07/2021 3:12 AM EDT L + [facility] Anion Gap 7 5 - 15 mmol/L 05/07/2021 3:12 AM EDT L + [facility] Calcium 8.5 8.5 - 10.1 mg/dL 05/07/2021 3:12 AM EDT + [facility] Blood Venipuncture / Unknown 05/07/2021 2:40 AM EDT 05/07/2021 2:44 AM EDT Vishnu Fontanez MD LAB BLOOD ORDERABLES Fin al Result Performing Organization Address City/State/[facility] Co de Phone Number [facility] [address] [place] [address] from Last 3 Months or Most Recently Relevant to Health Maintenance Insurance MEDICARE MANA[facility] [address] [place] [address] MEDICARE [facility] Care Teams Char House Supervisor Relationship Specialty Start Date End Date Tho Cruz NP [address] [facility] [place] [address] PCP - General Family Medicine 05/07/21
[2025-06-22 06:17] LABS: MANUAL DIFF FLAG NO
[2025-06-22 06:28] LABS: Hematocrit 42.4 % (42.0-52.0); Hemoglobin 14.5 g/dl (14.0-18.0); Imm Gran Abs Auto 0.02 X10*3/uL (0.00-0.03); Imm Gran Pct Auto 0.4 % (0.0-0.4); Lymphocytes Absolute Auto 1.2 X10*3/uL (1.2-4.9); Mean Corpuscular HGB Conc 34.2 g/dl (31.0-36.0); Mean Corpuscular Hemoglobin 33.9 pg (27.0-33.0); Mean Corpuscular Volume 99.1 fL (80.0-98.0); NRBC Abs Auto 0.000 X10*3/uL (0.0-0.012); NRBC Pct Auto 0.0 /100WBC (0.0-0.2); Platelet Count 159 X10*3/uL (160-400); Red Blood Count 4.28 X10*6/uL (4.60-5.80); White Blood Count 5.3 X10*3/uL (4.8-10.8)
[2025-06-22 06:43] LABS: Alanine Aminotransferase 14 U/L (0-40); Albumin Level 4.7 g/dL (3.5-5.0); Alkaline Phosphatase 69 U/L (39-117); Anion Gap 12 (12-20); Aspartate Amino Transferase 23 U/L (5-37); Blood Urea Nitrogen 16 mg/dL (9-16); Calcium 9.9 mg/dL (8.4-10.2); Carbon Dioxide 28 mmol/L (22-29); Chloride 105 mmol/L (96-108); Estimated Glomerular Filt Rate > 60; Potassium 4.0 mmol/L (3.3-5.1); Sodium 141 mmol/L (135-145); Total Protein 6.2 g/dL (6.5-8.0)
[2025-06-23 16:03] LABS: Kappa/Lambda Lt Ch Free Ratio >0.93 (0.26-1.65)
== END 2025-06-22 06:05 | disposition home or self-care (01) ==
LOC: HO.LAB 06:04
PROVIDERS: Nurse Practitioner Family; PCP Nurse Practitioner Family; Visit Provider Internal Medicine Medical Oncology
DX: C90.00 Multiple myeloma not having achieved remission (principal)
CPT/HCPCS: 36415; 80053; 83521; 85025

== ENCOUNTER → 2025-06-23 09:01 | Outpatient (REF) | payer MEDICARE, SELFPAY ==
--- NOTE | 2025-06-23 09:03 | CA_ITS ---
Transthoracic Echocardiogram Patient (Last, First, Middle): Hussein Castellano Elliott Gender: Male Date of : 1945 Age: 79 Procedure Date: 06/23/2025 Procedure Type: Transthoracic Echocardiogram Location: OP Height: 172.72 cm Weight: 68.04 kg BSA: 1.81 m2 Heart Rate: bpm BP: 118 / 60 mmHg Elementary Reading Specialist: Referring MD: Екатерина Beach MD Symptoms: C90.00 Multiple myeloma, on chemotherapy Study Quality: Adequate ECG Rhythm: Atrial Fibrillation Conclusions: - Normal left ventricular cavity size. There is mildly increased left ventricular wall thickness. The left ventricular systolic function is mildly decreased. The visually estimated ejection fraction is between 40-45%. - Normal right ventricular cavity size and systolic function. Findings Left Ventricle Normal left ventricular cavity size. There is mildly increased left ventricular wall thickness. The left ventricular systolic function is mildly decreased. The visually estimated ejection fraction is between 40-45%. Diastolic function is indeterminate on the basis of available data. Right Ventricle Normal right ventricular cavity size and systolic function. Venous The inferior vena cava is normal in size and collapses greater than 50% with inspiration. Pericardium/Pleural There is no evidence of pericardial effusion. Prior Study Comparison Changes noted compared to prior study dated: 01/18/2025. EF 40-45%. Normal RV cavity size and systolic function. Measurements 2D Linear Measurements IVSd: 1.27 0.6-0.9/0.6-1.0 cm LVIDd: 4.90 3.9-5.3/4.2-5.9 cm LVIDd Index: 2.71 2.4-3.2/2.2-3.1 cm/m2 LVIDs: 3.48 2.0-3.6 cm LVPWd: 1.23 0.7-1.1 cm LV Mass: 299.08 67-162/88-224 g LV Mass Index: 165.24 43-95/49-115 g/m2 2D Systolic Function EF 4C: 45.20 >55% EF 2C: 52.90 >55% EF BiP: 48.80 >55% Right Ventricle TAPSE (mm): 28.50 TVS' Khang: 10.20 Tricuspid Valve RA Press: 3.00 Updated in Other Vendor System with Status of Final Sina Quiroga MD electronically signed on 06/25/2025 2:51:41 PM with status of Final
--- OUTSIDE RECORDS SUMMARY | 2025-06-23 09:18 | XMS_ITS | Patient Health Record ---
Author Organization [facility] Address [address] [place] [address] Care Team Providers Care Front Of House Manager Name Role Phone CLIFF LINTON Primary Care Provider Ana Madsen Unavailable [phone] Allergies Allergen (clinical drug ingredient) Drug/Non Drug [...] Problem Status W/U Status Risk Notes Problem [id number] Encounter for screening for malignant neoplasm of colon (Z12.11) Active confirmed Problem Nausea and vomiting (52843910) Nausea with vomiting, unspecified (R11.2) Active confirmed Problem [id number] Preprocedural examination (Z01.818) Active confirmed Problem 04897270 Constipation, unspecified constipation type (K59.00) Active confirmed Plan Of Treatment No Information Insurance Providers Payer Name Payer Address Payer Phone Subscriber Number Group Number Insured Name Patient Relationship to Insured Coverage Start Date Coverage End Date [facility] [address] [place] [address] [phone] [id number] ANA ORTIZ Self - patient is the insured Medical (General) History Medical History History ICD Code Emphysema-mild Denies ID,DM,CVA,renal disease Arthritis Multiple myeloma 10/2019--sees Dr. Chacorta mendez for chemotherapy HTN Neg. colonoscopy in 08/2009 Hyperlipidemia Abdominal aortic aneurysm with treatment as below Surgical History Surgery Date(Month/Year) Lumbar surgery - Dr. De La Paz 2007 [place] [facility] [place]sees Dr. Galeano now 2009 Hernia repairs- left inguinal and umbili broderick
--- OUTSIDE RECORDS SUMMARY | 2025-06-23 09:18 | XMS_ITS | Clinical Summary ---
Author Organization [facility] Address [address] [place] [address] Phone Care Team Providers Care Board Member Name Role Phone Amena Kaplan MD Primary [...] EST) SODIUM 135(L) 136 - 145 mmol/L [facility] LIC# [id number] POTASSIUM 4.1 3.4 - 5.1 mmol/L [facility] LIC# [id number] CHLORIDE 101 98 - 107 mmol/L [facility] LIC# [id number] CO2 29 22 - 31 mmol/L [facility] LIC# [id number] BUN 13 6 - 23 mg/dL [facility] LIC# [id number] CREATININE 0.79 0.50 - 1.20 mg/dL [facility] LIC# [id number] GLUCOSE 99 70 - 100 mg/dL [facility] LIC# [id number] ALBUMIN 3.0(L) 3.5 - 5.2 g/dL [facility] LIC# [id number] TOTAL PROTEIN 7.9 6.4 - 8.3 g/dL [facility] LIC# [id number] CALCIUM 8.8 8.8 - 10.7 mg/dL [facility] LIC# [id number] ALKALINE PHOSPHATASE 75 40 - 129 U/L [facility] LIC# [id number] TOTAL BILIRUBIN 0.3 0.2 - 1.2 mg/dL [facility] LIC# [id number] AST 16 <41 U/L [facility] LIC# [id number] ALT 24 <42 U/L [facility] LIC# [id number] GLOBULIN 4.9(H) 1.9 - 4.1 g/dL [facility] LIC# [id number] EGFR 89 >59 mL/min/1.7 3m2 [facility] LIC# [id number] Comment:If patient is Tara n[place], multiply result by 1.159. Estimated glomerular filtration rate calculated using the CKD-EPI equation. ANION GAP 5(L) 7 - 17 mmol/L [facility] LIC# [id number] Blood 12/19/2019 1:58 PM EST 12/19/2019 2:12 PM EST Abel Jin MD LAB BLOOD ORDERABLES Final Result [facility] LIC# [id number] [address] [place] [address] from Last 3 Months or Most Recently Relevant to Health Maintenance Insurance GENERIC MEDICARE REPLACEMENT GENERIC MEDICARE REPLACEMENT GENERIC MEDICARE REPLACEMENT GENERIC MEDICARE REPLACEMENT GENERIC MEDICARE REPLACEMENT GENERIC MEDICARE REPLACEMENT GENERIC MEDICARE REPLACEMENT GENERIC MEDICARE REPLACEMENT GENERIC MEDICARE REPLACEMENT Care Teams Board Member Relationship Specialty Start Date End Date Amena Kaplan MD [address] [facility] [place] [address] PCP - General Internal Medicine 12/19/19 Additional Source Comments The information contained in this document represents components of the legal health record. It is not the complete legal health record.[facility]
--- OUTSIDE RECORDS SUMMARY | 2025-06-23 09:18 | XMS_ITS | Clinical Summary ---
Author Organization [address] Address [address] [place] [address] Phone Care Team Providers Care Cafe Team Member Name Role Phone Tho Cruz NP Primary [...] EDT [facility] eGFR (-GREEK) >60 >60 mL/min/1. 73m2 05/07/2021 3:12 AM EDT [facility] eGFR (NON -Austrian) >60 >60 mL/min/1. 73m2 05/07/2021 3:12 AM [...] mmol/L 05/07/2021 3:12 AM EDT L + [facility] Anion Gap 7 5 - 15 mmol/L 05/07/2021 3:12 AM EDT L + [facility] Calcium 8.5 8.5 - 10.1 mg/dL 05/07/2021 3:12 AM EDT + [facility] Blood Venipuncture / Unknown 05/07/2021 2:40 AM EDT 05/07/2021 2:44 AM EDT Vishnu Fontanez MD LAB BLOOD ORDERABLES Fin al Result Performing Organization Address City/State/[facility] Co de Phone Number [facility] [address] [place] [address] from Last 3 Months or Most Recently Relevant to Health Maintenance Insurance MEDICARE MANAGED [facility] [place] , [address] [place] [address] MEDICARE MANAGED [facility] MEDICARE MANAGED [facility] Care Teams Cafe Team Member Relationship Specialty Start Date End Date Tho Cruz NP [address] [facility] [place] [address] PCP - General Family Medicine 05/07/21
== END ==
LOC: HO.CARD 09:01
PROVIDERS: PCP Nurse Practitioner Family; Visit Provider Internal Medicine Medical Oncology
DX: C90.00 Multiple myeloma not having achieved remission (principal)
CPT/HCPCS: 93308

== ENCOUNTER → 2025-06-23 09:03 | Outpatient (BNV) | payer MEDICARE, SELFPAY | PROVIDERS: PCP Nurse Practitioner Family; Visit Provider Internal Medicine Cardiovascular Disease | DX: C90.00 Multiple myeloma not having achieved remission (principal) | CPT/HCPCS: 93308 ==

== ENCOUNTER 2025-07-12 08:23 | Outpatient (REF) | payer MEDICARE, SELFPAY ==
--- NOTE | ~2025-07-12 | CT_ITS ---
CLINICAL HISTORY: I71.43 - Infrarenal abdominal aortic aneurysm, without rupture CT angiography abdomen and pelvis with contrast. 3-D post processing. Comparison: CT/WA/SR - CT ABDOMEN PELVIS ANGIOGRAPHY WITH IV CONTRAST - 06/01/24 08:01 EDT Findings: 4.4 x 4.4 cm aneurysm of the infrarenal abdominal aorta without interval change in size. An aortoiliac endograft has been placed. The graft is patent and there is no evidence of endograft leak. 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 Remaining major aortic branches appear to be patent without stenosis. There are emphysematous changes at the lung bases. There is no consolidation or pleural effusion. There are numerous liver cysts without change. There are several kidney cysts without change. Remaining abdominal organs are unremarkable. There are no calcified gallstones. There is colonic diverticulosis without diverticulitis. No bowel edema or dilatation. Unremarkable pelvic contents. There may be small appendicoliths. There is no current evidence of appendicitis. There are small bilateral inguinal hernias containing fat. There are advanced arthritic changes of the left hip. There is a mild compression fracture of the T10 vertebral body without change. There is a circumscribed lytic lesion at L5 without change. IMPRESSION: 4.4 cm aneurysm of the infrarenal abdominal aorta status post endograft placement, without significant change. This document has been electronically signed by: Maryse Davison MD on 07/12/2025 16:42:41
--- OUTSIDE RECORDS SUMMARY | 2025-07-12 08:49 | XMS_ITS | Clinical Summary ---
Author Organization [facility] Address [address] [place] [address] Phone Care Team Providers Care Lamp Cleaner Name Role Phone Amena Kaplan MD Primary [...] VACCINE (3 - season) 2024 02/13/2021, 01/16/2021 INFLUENZA VACCINE (#1) 2025 11/23/2020 Adult Td,Tdap Booster 02/07/2026 02/08/2016 HEPATITIS A [...] EST) SODIUM 135(L) 136 - 145 mmol/L [facility] LIC# [id number] POTASSIUM 4.1 3.4 - 5.1 mmol/L [facility] LIC# [id number] CHLORIDE 101 98 - 107 mmol/L [facility] LIC# [id number] CO2 29 22 - 31 mmol/L [facility] LIC# [id number] BUN 13 6 - 23 mg/dL [facility] LIC# [id number] CREATININE 0.79 0.50 - 1.20 mg/dL [facility] LIC# [id number] GLUCOSE 99 70 - 100 mg/dL [facility] LIC# [id number] ALBUMIN 3.0(L) 3.5 - 5.2 g/dL [facility] LIC# [id number] TOTAL PROTEIN 7.9 6.4 - 8.3 g/dL [facility] LIC# [id number] CALCIUM 8.8 8.8 - 10.7 mg/dL [facility] LIC# [id number] ALKALINE PHOSPHATASE 75 40 - 129 U/L [facility] LIC# [id number] TOTAL BILIRUBIN 0.3 0.2 - 1.2 mg/dL [facility] LIC# [id number] AST 16 <41 U/L [facility] LIC# [id number] ALT 24 <42 U/L [facility] LIC# [id number] GLOBULIN 4.9(H) 1.9 - 4.1 g/dL [facility] LIC# [id number] EGFR 89 >59 mL/min/1.7 3m2 [facility] LIC# [id number] Comment:If patient is Tara n-[place], multiply result by 1.159. Estimated glomerular filtration rate calculated using the CKD-EPI equation. ANION GAP 5(L) 7 - 17 mmol/L [facility] LIC# [id number] Blood 12/19/2019 1:58 PM EST 12/19/2019 2:12 PM EST Abel Jin MD LAB BLOOD ORDERABLES Final Result [facility] LIC# [id number] [address] [place] [address] from Last 3 Months or Most Recently Relevant to Health Maintenance Insurance GENERIC MEDICARE REPLACEMENT GENERIC MEDICARE REPLACEMENT GENERIC MEDICARE REPLACEMENT GENERIC MEDICARE REPLACEMENT GENERIC MEDICARE REPLACEMENT GENERIC MEDICARE REPLACEMENT GENERIC MEDICARE REPLACEMENT GENERIC MEDICARE REPLACEMENT GENERIC MEDICARE REPLACEMENT Care Teams Lamp Cleaner Relationship Specialty Start Date End Date Amena Kaplan MD [address] [place] [address] PCP - General Internal Medicine 12/19/19 Additional Source Comments The information contained in this document represents components of the legal health record. It is not the complete legal health record.[facility]
--- OUTSIDE RECORDS SUMMARY | 2025-07-12 08:49 | XMS_ITS | Clinical Summary ---
Author Organization [address] Address [address] [place] [address] Phone Care Team Providers Care Clinical Programmer Name Role Phone Tho Cruz NP Primary [...] Covid-19 vaccine series ( - 2023- season) 2025 Influenza vaccine 07/10/2025 Colon cancer screening, Colonoscopy Discontinued Meningococcal B Vaccine Aged Out No l onger eligible based on patient's age to complete this topic Meningococcal Vaccine Aged Out No alexa quan [...] AM EDT [facility] Anion Gap 7 5 - 15 mmol/L 05/07/2021 3:12 AM EDT L + [facility] Calcium 8.5 8.5 - 10.1 mg/dL 05/07/2021 3:12 AM EDT [facility] Blood Venipuncture / Unknown 05/07/2021 2:40 AM EDT 05/07/2021 2:44 AM EDT Vishnu Fontanez MD LAB BLOOD ORDERABLES Fin al Result Performing Organization Address [facility]/State/[facility] Co de Phone Number [facility] [address] [place] [address] from Last 3 Months or Most Recently Relevant to Health Maintenance Insurance MEDICARE MANA[place] [facility] [facility] [place] [facility] Care Teams Clinical Programmer Relationship Specialty Start Date End Date Tho Cruz NP [address] [facility] [place] [address] PCP - General Family Medicine 05/07/21
--- OUTSIDE RECORDS SUMMARY | 2025-07-12 08:49 | XMS_ITS | Patient Health Record ---
Author Organization [facility] Address [address] [place] [address] Care Team Providers Care Travel Information Center Supervisor Name Role Phone CLIFF LINTON Primary Care Provider Ana Madsen Unavailable [phone] Allergies Allergen (clinical drug ingredient) Drug/Non Drug [...] Problem Status W/U Status Risk Notes Problem [id number] Encounter for screening for malignant neoplasm of colon (Z12.11) Active confirmed Problem Nausea and vomiting (16430788) Nausea with vomiting, unspecified (R11.2) Active confirmed Problem [id number] Preprocedural examination (Z01.818) Active confirmed Problem [id number] Constipation, unspecified constipation type (K59.00) Active confirmed Plan Of Treatment No Information Insurance Providers Payer Name Payer Address Payer Phone Subscriber Number Group Number Insured Name Patient Relationship to Insured Coverage Start Date Coverage End Date [facility] [address] [place] [phone] [id number] ANA ORTIZ Self - patient is the insured Medical (General) History Medical History History ICD Code Emphysema-mild Denies DC,DM,CVA,renal disease Arthritis Multiple myeloma 10/2019--sees Dr. Chacorta mendez for chemotherapy HTN Neg. colonoscopy in 08/2009 Hyperlipidemia Abdominal aortic aneurysm with treatment as below Surgical History Surgery Date(Month/Year) Lumbar surgery - Dr. De La Paz 2007 Endovascular graft placement at [facility] for AAA--sees Dr. Galeano now 2009 Hernia repairs- left inguinal and umbili broderick
[2025-07-12] MEDS: iohexoL 350 MG/ML 100 ML INFUS..BTL IV (08:54)
== END 2025-07-12 08:24 | disposition home or self-care (01) ==
LOC: HO.CT 08:23
PROVIDERS: PCP Nurse Practitioner Family; Visit Provider Surgery Vascular Surgery
DX: I71.43 Infrarenal abdominal aortic aneurysm, without rupture (principal)
CPT/HCPCS: 74174; Q9967

== ENCOUNTER → 2025-07-12 08:25 | Outpatient (BNV) | payer MEDICARE, SELFPAY | PROVIDERS: PCP Nurse Practitioner Family; Visit Provider Radiology Diagnostic Radiology | DX: I71.43 Infrarenal abdominal aortic aneurysm, without rupture (principal) | CPT/HCPCS: 74174 ==

== ENCOUNTER 2025-07-20 08:03 | Outpatient (REF) | payer MEDICARE, SELFPAY ==
[2025-07-20 08:12] LABS: MANUAL DIFF FLAG NO
[2025-07-20 08:15] LABS: Hematocrit 39.9 % (42.0-52.0); Hemoglobin 13.7 g/dl (14.0-18.0); Imm Gran Abs Auto 0.03 X10*3/uL (0.00-0.03); Imm Gran Pct Auto 0.5 % (0.0-0.4); Lymphocytes Absolute Auto 1.2 X10*3/uL (1.2-4.9); Mean Corpuscular HGB Conc 34.3 g/dl (31.0-36.0); Mean Corpuscular Hemoglobin 33.7 pg (27.0-33.0); Mean Corpuscular Volume 98.3 fL (80.0-98.0); NRBC Abs Auto 0.000 X10*3/uL (0.0-0.012); NRBC Pct Auto 0.0 /100WBC (0.0-0.2); Platelet Count 149 X10*3/uL (160-400); Red Blood Count 4.06 X10*6/uL (4.60-5.80); White Blood Count 5.8 X10*3/uL (4.8-10.8)
[2025-07-20 08:29] LABS: Alanine Aminotransferase 16 U/L (0-40); Albumin Level 4.5 g/dL (3.5-5.0); Alkaline Phosphatase 75 U/L (39-117); Anion Gap 12 (12-20); Aspartate Amino Transferase 20 U/L (5-37); Blood Urea Nitrogen 15 mg/dL (9-16); Calcium 9.3 mg/dL (8.4-10.2); Carbon Dioxide 31 mmol/L (22-29); Chloride 104 mmol/L (96-108); Estimated Glomerular Filt Rate > 60; Potassium 3.8 mmol/L (3.3-5.1); Sodium 143 mmol/L (135-145); Total Protein 6.1 g/dL (6.5-8.0)
== END 2025-07-20 08:04 | disposition home or self-care (01) ==
LOC: HO.LAB 08:03
PROVIDERS: PCP Nurse Practitioner Family; Visit Provider Internal Medicine Medical Oncology
DX: C90.00 Multiple myeloma not having achieved remission (principal)
CPT/HCPCS: 36415; 80053; 85025

== ENCOUNTER 2025-08-03 06:09 | Outpatient (REF) | payer MEDICARE, SELFPAY ==
--- OUTSIDE RECORDS SUMMARY | 2025-08-02 08:09 | XMS_ITS | Encounter Summary ---
Author Organization [facility] Address [address] [place] [address] Care Team Providers Care Utility Worker Film Processing Name Role Phone Lita Hill Primary Care Provider [phone] Reason for Referral * Imaging (Routine) - Pending Review Specialty Diagnoses / Procedures Referred By Anaac t Referred To Contact Radiology Diagnoses Multiple myeloma not having achieved remission (CMS/HCC V24, CMS/[facility] V28) Procedures PET CT Skull to Mid Thigh Subsequent [facility] ATTN: HEMATOLOGY/[place] [address] Phone: tel: fax: [facility] Referral ID Status Reason Start Date Expiration Date V isits Requested Visits Authorized [id number] Pending Review 08/01/2025 08/01/2026 1 1 Reason for Visit * Imaging (Routine) - Pending Review Specialty Diagnoses / Procedures Referred By Daija novoa Referred To Contact Radiology Diagnoses Multiple myeloma not having achieved remission ([facility]/HCC V24, [facility] V28) Procedures PET CT Skull to Mid Thigh Subsequent Andrea Beach MD [address] [facility] ATTN: HEMATOLOGY/[place] [address] Phone: tel: fax: [facility] Referral ID Status Reason Start Date Expiration Date V isits Requested Visits Authorized [id number] Pending Review 08/01/2025 08/01/2026 1 1 Encounter Details Date Type Department Care Team (Latest Contact Info) Description 08/02/2025 8:09 AM EDT Hospital Encounter [facility] PET Scan [address] [place] [address] Multiple myeloma not having achieved remission (CMS/HCC V24, CMS/[facility] V28) Social History Tobacco Use Types Packs/Day Years Used Date Smoking Tobacco: Never Assessed Sex and Gender Information Value Date Recorded Sex Assigned at Not on file Legal Sex Male 11:01 AM EST Gender Identity Not on file Sexual Orientation Not on file documented as of this encounter Plan of Treatment Pending Results Name Type Priority Associated Diagnoses Date /Time PET CT Skull to Mid Thigh Subsequent Imaging Routine Multiple myeloma not having achieved remission (CMS/HCC V24, CMS/[facility] V28) 08/02/2025 10:00 AM EDT Scheduled Orders Name Type Priority Associated Diagnoses Orde r Schedule PET CT Skull to Mid Thigh Subsequent Imaging Routine Multiple myeloma not having achieved remission (CMS/HCC V24, CMS/[facility] V28) Once for 1 Occurrences starting 08/02/2025 until 08/02/2025 documented as of this encounter Visit Diagnoses Diagnosis Multiple myeloma not having achieved remission (CMS/HCC V24, CMS/[facility] V28) documented in this encounter Administered Medications Inactive Administered Medications - up to 3 most recent administrations Medication Order MAR Action Action Date Dose Rate Site F-18 FDG pet diag radio-isotope injection 13.6 millicurie 13.6 millicurie, intravenous, Once in imaging, Starting on Thu08/02/25 at 0845, For 1 dose Given 08/02/2025 8:40 AM EDT 13.6 millicuries Right Antecubital documented in this encounter Orders Medications Ordered That Derrick ht Not Have Been Administered Count Last Ordered Date First Ordered Date F-18 FDG pet diag radio-isot ope injection 13.6 millicurie 1 08/02/2025 documented in this encounter Care Teams Utility Worker Film Processing Relationship Specialty Start Date End Date Lita Hill [address] [place] [address] PCP - General 03/11/18 documented as of this encounter
--- OUTSIDE RECORDS SUMMARY | 2025-08-03 06:12 | XMS_ITS | Clinical Summary ---
Author Organization [facility] Address [address] [place] [address] Phone Care Team Providers Care Scuba Instructor Name Role Phone Lita Hill Primary Care Provider [phone] Encounters Date Type Department Care Team Description 08/02/2025 8:09 AM EDT Hospital Encounter [facility] PET Scan [address] [place] [address] Multiple myeloma not having achieved remission (CMS/HCC V24, CMS/HCC V28) from Last 3 Months Social History Tobacco Use Types Packs/Day Years Used Date Smoking Tobacco: Never Assessed Sex and Gender Information Value Date Recorded Sex Assigned at Not on file Legal Sex Male 11:01 AM EST Gender Identity Not on file Sexual Orientation Not on file Plan of Treatment Health Maintenance Due Date Last Done Comments Depression Screening 11/09/2024 Zoster Vaccines (2 of 2) 01/30/2025 025, 04/12/2016, 02/11/2016 COVID-19 Vaccine ( - 2024-2 6 season) 2025 09/09/2021, 02/13/2021, 01/16/2021 Influenza Vaccine (#1) 2025 , 11/23/2020 Cholesterol Screening (Lipid Panel) 08/01/2025 Falls Risk Assessment 08/01/2025 Hepatitis C Screening 08/01/2025 Medicare Annual Wellness Visit 08/01/2025 Social Influencers of Health Screening 08/01/2025 Hypertension/CHF/CAD Annual BMP Blood Test 08/02/2025 05/07/2021, 05/07/2021, 12/19/2019 DTaP,Tdap,and Td Vaccines (2 - Td or Tdap) 02/07/2026 02/08/2016 RSV Immunization Adult Patients Completed 09/04/2023 Pneumococcal Vaccine: 50+ Years Completed 10/14/2023, 08/21/2016 HIB Vaccines Aged Out No longer eligi ble based on patient's age to complete this topic HPV Vaccines Aged Out No longer eligi ble based on patient's age to complete this topic Hepatitis A Vaccines Aged Out No long er eligible based on patient's age to complete this topic Hepatitis B Vaccines Aged Out No long er eligible based on patient's age to complete this topic IPV Vaccines Aged Out No longer eligi ble based on patient's age to complete this topic MMR Vaccines Aged Out No longer eligi ble based on patient's age to complete this topic Meningococcal ACWY Vaccine Aged Out N o longer eligible based on patient's age to complete this topic Meningococcal B Vaccine Aged Out No l onger eligible based on patient's age to complete this topic RSV Immunization Patients Under 20 months Aged Out No longer eligible b ased on patient's age to complete this topic Varicella Vaccines Aged Out No longer eligible based on patient's age to complete this topic Insurance [employer] MEDICARE ADVANTAGE Care Teams Scuba Instructor Relationship Specialty Start Date End Date Lita Hill [address] [place] [address] PCP - General 03/11/18
--- OUTSIDE RECORDS SUMMARY | 2025-08-03 06:13 | XMS_ITS | Clinical Summary ---
Author Organization [facility] Address [address] [place] [address] Phone Care Team Providers Care Plastic Dolls Mold Filler Name Role Phone Amena Kaplan MD Primary [...] VACCINE (1 - 1-dose 75+ series) 2021 INFLUENZA VACCINE (#1) 2025 11/23/2020 COVID-19 VACCINE (3 - season) 2025 02/13/2021, 01/16/2021 Adult Td,Tdap Booster 02/07/2026 02/08/2016 [...] EST) SODIUM 135(L) 136 - 145 mmol/L [facility] LIC# [id number] POTASSIUM 4.1 3.4 - 5.1 mmol/L [facility] LIC# [id number] CHLORIDE 101 98 - 107 mmol/L [facility] LIC# [id number] CO2 29 22 - 31 mmol/L [facility] LIC# [id number] BUN 13 6 - 23 mg/dL [facility] LIC# [id number] CREATININE 0.79 0.50 - 1.20 mg/dL [facility] LIC# [id number] GLUCOSE 99 70 - 100 mg/dL [facility] LIC# [id number] ALBUMIN 3.0(L) 3.5 - 5.2 g/dL [facility] LIC# [id number] TOTAL PROTEIN 7.9 6.4 - 8.3 g/dL [facility] LIC# [id number] CALCIUM 8.8 8.8 - 10.7 mg/dL [facility] LIC# [id number] ALKALINE PHOSPHATASE 75 40 - 129 U/L [facility] LIC# [id number] TOTAL BILIRUBIN 0.3 0.2 - 1.2 mg/dL [facility] LIC# [id number] AST 16 <41 U/L [facility] LIC# [id number] ALT 24 <42 U/L [facility] LIC# [id number] GLOBULIN 4.9(H) 1.9 - 4.1 g/dL [facility] LIC# [id number] EGFR 89 >59 mL/min/1.7 3m2 [facility] LIC# [id number] Comment:If patient is Tara n-Citizen Of [place], multiply result by 1.159. Estimated glomerular filtration rate calculated using the CKD-EPI equation. ANION GAP 5(L) 7 - 17 mmol/L [facility] LIC# [id number] Blood 12/19/2019 1:58 PM EST 12/19/2019 2:12 PM EST Abel Jin MD LAB BLOOD ORDERABLES Final Result [facility] LIC# [id number] [address] [place] [address] from Last 3 Months or Most Recently Relevant to Health Maintenance Insurance GENERIC MEDICARE REPLACEMENT GENERIC MEDICARE REPLACEMENT GENERIC MEDICARE REPLACEMENT GENERIC MEDICARE REPLACEMENT GENERIC MEDICARE REPLACEMENT GENERIC MEDICARE REPLACEMENT GENERIC MEDICARE REPLACEMENT GENERIC MEDICARE REPLACEMENT GENERIC MEDICARE REPLACEMENT Care Teams Plastic Dolls Mold Filler Relationship Specialty Start Date End Date Amena Kaplan MD [address] [facility] [place] [address] PCP - General Internal Medicine 12/19/19 Additional Source Comments The information contained in this document represents components of the legal health record. It is not the complete legal health record.[facility]
--- OUTSIDE RECORDS SUMMARY | 2025-08-03 06:13 | XMS_ITS | Clinical Summary ---
Author Organization [address] Address [address] [place] [address] Phone Care Team Providers Care Core Stripper Name Role Phone Tho Cruz NP Primary [...] 75+ series) 2021 Diabetes screening 05/07/2024 05/07/2021 Influenza vaccine 06/09/2025 Covid-19 vaccine series ( - 2023- season) 2025 Colon cancer screening, Colonoscopy Discontinued Meningococcal B [...] EDT [facility] eGFR (-MARTINIQUAIS) >60 >60 mL/min/1. 73m2 05/07/2021 3:12 AM EDT [facility] eGFR (NON -Croatian) >60 >60 mL/min/1. 73m2 05/07/2021 3:12 AM [...] ORDERABLES Fin al Result Performing Organization Address [facility]/State/[facility] Co de Phone Number [facility] [address] [place] [address] from Last 3 Months or Most Recently Relevant to Health Maintenance Insurance MEDICARE [place] [facility] [place] [facility] [place] [facility] [place] Care Teams Core Stripper Relationship Specialty Start Date End Date Tho Cruz NP [address] [place] [address] PCP - General Family Medicine 05/07/21
--- OUTSIDE RECORDS SUMMARY | 2025-08-03 06:13 | XMS_ITS | Patient Health Record ---
Author Organization [facility] Address [address] [place] [address] Care Team Providers Care Dial Screw Assembler Name Role Phone CLIFF LINTON Primary Care Provider Ana Madsen Unavailable [phone] Allergies Allergen (clinical drug ingredient) Drug/Non Drug [...] Problem Status W/U Status Risk Notes Problem [id number] Encounter for screening for malignant neoplasm of colon (Z12.11) Active confirmed Problem Nausea and vomiting (54491497) Nausea with vomiting, unspecified (R11.2) Active confirmed Problem [id number] Preprocedural examination (Z01.818) Active confirmed Problem 83333397 Constipation, unspecified constipation type (K59.00) Active confirmed Plan Of Treatment No Information Insurance Providers Payer Name Payer Address Payer Phone Subscriber Number Group Number Insured Name Patient Relationship to Insured Coverage Start Date Coverage End Date [facility] [address] [place] [phone] [id number] ANA ORTIZ Self - patient is the insured Medical (General) History Medical History History ICD Code Emphysema-mild Denies [place],DM,CVA,renal disease Arthritis Multiple myeloma 10/2019--sees Dr. Chacorta mendez for chemotherapy HTN Neg. colonoscopy in 08/2009 Hyperlipidemia Abdominal aortic aneurysm with treatment as below Surgical History Surgery Date(Month/Year) Lumbar surgery - Dr. De La Paz 2007 Endovascular graft placement at [facility] for AAA--sees Dr. Galeano now 2009 Hernia repairs- left inguinal and umbili broderick
[2025-08-03 08:15] LABS: Blood Urea Nitrogen 13 mg/dL (9-16); Estimated Glomerular Filt Rate > 60
[2025-08-03 13:16] LABS: Alanine Aminotransferase 13 U/L (0-40); Albumin Level 4.3 g/dL (3.5-5.0); Alkaline Phosphatase 77 U/L (39-117); Anion Gap 12 (12-20); Aspartate Amino Transferase 18 U/L (5-37); Calcium 9.0 mg/dL (8.4-10.2); Carbon Dioxide 29 mmol/L (22-29); Chloride 106 mmol/L (96-108); Potassium 3.5 mmol/L (3.3-5.1); Sodium 143 mmol/L (135-145); Total Protein 5.9 g/dL (6.5-8.0)
== END 2025-08-03 06:10 | disposition home or self-care (01) ==
LOC: HO.LAB 06:09
PROVIDERS: Surgery Vascular Surgery; PCP Nurse Practitioner Family; Visit Provider Internal Medicine Medical Oncology
DX: C90.00 Multiple myeloma not having achieved remission (principal)
CPT/HCPCS: 36415; 80053; 82565; 84520

== ENCOUNTER 2025-08-17 06:41 | Outpatient (REF) | payer MEDICARE, SELFPAY ==
[2025-08-17 07:04] LABS: MANUAL DIFF FLAG NO
[2025-08-17 07:06] LABS: Hematocrit 42.1 % (42.0-52.0); Hemoglobin 14.5 g/dl (14.0-18.0); Imm Gran Abs Auto 0.02 X10*3/uL (0.00-0.03); Imm Gran Pct Auto 0.4 % (0.0-0.4); Lymphocytes Absolute Auto 1.1 X10*3/uL (1.2-4.9); Mean Corpuscular HGB Conc 34.4 g/dl (31.0-36.0); Mean Corpuscular Hemoglobin 34.0 pg (27.0-33.0); Mean Corpuscular Volume 98.6 fL (80.0-98.0); NRBC Abs Auto 0.000 X10*3/uL (0.0-0.012); NRBC Pct Auto 0.0 /100WBC (0.0-0.2); Platelet Count 176 X10*3/uL (160-400); Red Blood Count 4.27 X10*6/uL (4.60-5.80); White Blood Count 5.5 X10*3/uL (4.8-10.8)
[2025-08-17 07:20] LABS: Alanine Aminotransferase 12 U/L (0-40); Albumin Level 4.6 g/dL (3.5-5.0); Alkaline Phosphatase 86 U/L (39-117); Anion Gap 11 (12-20); Aspartate Amino Transferase 20 U/L (5-37); Blood Urea Nitrogen 19 mg/dL (9-16); Calcium 9.7 mg/dL (8.4-10.2); Carbon Dioxide 28 mmol/L (22-29); Chloride 106 mmol/L (96-108); Estimated Glomerular Filt Rate > 60; Potassium 4.0 mmol/L (3.3-5.1); Sodium 141 mmol/L (135-145); Total Protein 6.2 g/dL (6.5-8.0)
== END 2025-08-17 06:42 | disposition home or self-care (01) ==
LOC: HO.LAB 06:41
PROVIDERS: PCP Nurse Practitioner Family; Visit Provider Internal Medicine Medical Oncology
DX: I71.43 Infrarenal abdominal aortic aneurysm, without rupture (principal); C90.00 Multiple myeloma not having achieved remission
CPT/HCPCS: 36415; 80053; 85025; 99212

== ENCOUNTER 2025-08-17 10:50 | Outpatient (AMB) | payer MEDICARE, SELFPAY ==
[2025-08-17 10:52] VITALS: BP 132/70; BMI 23.0
--- NOTE | 2025-08-17 10:52 | A.OFFVIS_ITS ---
Vital Signs 08/17/25 10:52 Height 5 ft 8 in Weight 151 lb BMI 23.0 BP 132/70 Blood Pressure Location Lt brachial Position Sitting Intake Visit Reasons: 1 year follow up CTA Abd/Pelvis 07/12/25 Intake Note: 1 yr follow up CTA Abd/pelvis 07/12/25, hx of AAA Repair in 2009 by . Pt states he has Left LE cramping Scrubbing Machine Operator Required: No Accompanied by: Self / Same As Patient Allergies No Known Allergies Allergy (Verified 08/17/25 10:58) HPI HPI 1 year follow up CTA Abd/Pelvis 07/12/25: Details: The patient is a 79-year-old male presenting with an annual follow-up for his aortic aneurysm. The aortic aneurysm was initially addressed approximately 15 years ago [place] [address] Alexandra at [facility]. The patient is currently undergoing follow-up with a CT angiogram to monitor the status of the aneurysm. Of note he did quit smoking 15 years prior around the time of his aortic aneurysm repair He now presents for routine follow-up with CT angiogram. [facility] Medical History Pneumonia Statin intolerance HTN (hypertension) AAA (abdominal aortic aneurysm) Vitamin D deficiency Subclinical hyperthyroidism Multinodular thyroid Pancytopenia Leukopenia Multiple myeloma Surgical History Hx of hernia repair (07/08/18) History of bone marrow biopsy Hx of tooth extraction History of back surgery Hx of umbilical hernia repair (06/28/13) History of AAA (abdominal aortic aneurysm) repair Family History Father CVD (cardiovascular disease) AAA (abdominal aortic aneurysm) Mother Stomach cancer Social History Household Members: Spouse Housing: House Are you a primary point of care technician to a significant other at home: No Do you presently have visiting nurse or other home services: No Alcohol intake: former Comment: Patient refuses bed alarm Patient Tobacco Use Status: Former Tobacco user Years Smoked: 38 e-Cigarette/Vaping Use: Never Used Second Hand Smoke Exposure: No Special tiesha needs: No Agree to transfusion: Yes Advance Directives Date on File: 01/11/21 service: Yes Current occupational status: employed and retired Cognitive needs: No Hearing needs: No Vision needs: No Review of Systems Const All systems reviewed & are unremarkable except as noted in HPI and below Reports no additional complaints ENT Reports Normal hearing present Card Denies chest pain, Denies chest pain at rest, Denies chest pain with activity and Denies pedal edema Resp Denies cough GI Denies abdominal pain Musc Denies abnormal gait, Denies muscle cramps and Denies radiating pain into limb Skin/Breast Denies skin ulcer and Denies wounds Neuro Reports Normal hearing present and Denies abnormal gait Psych Reports no additional complaints Physical Exam Vital Signs: Last Vital Signs BP 132/70 08/17/25 10:52 BMI result Body Mass Index 23.0 Const General: cooperative, healthy appearing and comfortable Orientation/consciousness: oriented to person, oriented to place and oriented to time HEENT Head: Yes normal to inspection Neck Neck: Yes normal visual inspection Carotids: no bruits Chest Chest palpation & inspection: normal inspection of the chest Resp Effort & Inspection: normal respiratory effort and able to speak in complete sentences Auscultation: clear to auscultation bilaterally, no crackles, no rales, no rhonchi and no wheezes Cardio Rate: regular rate Rhythm: regular rhythm Heart sounds: S1 normal heart sound present and S2 normal heart sound present Bruits: no carotid bruits Peripheral pulses: Peripheral pulses 2+ throughout GI Inspection: Yes normal to inspection Skin Wounds: no wounds Hair: normal Neuro General: oriented to person, oriented to place and oriented to time Cranial nerves: Yes CN's II-XII intact bilaterally and Yes Normal hearing present Cognition (Neuro): normal cognition Motor exam (neuro): 5/5 motor strength present throughout Extrem Other: venous exam: No significant superficial varicosities or spider telangiectasias, minimal edema General: No clubbing, No cyanosis and No edema Psych Appearance: grossly normal Mental Status: mental status grossly normal Speech and movement: Normal speech and movement present Results Reviewed Results Reviewed: CT angiogram dated 07/12/2025 demonstrates a 4.4 cm AAA which appears to be stable in nature. Written report and images were reviewed. Assessment & Plan Assessment & Plan (1) AAA (abdominal aortic aneurysm): Comment: 04/2010 - endovascular aortic aneurysm repair by Dr. Alexandra at [facility] Code(s): I71.4 - Abdominal aortic aneurysm, without rupture Category: Medical Qualifiers: Abdominal aorta location: infrarenal aorta Presence of rupture: without rupture Qualified Code(s): I71.43 - Infrarenal abdominal aortic aneurysm, without rupture Plan: In short patient has stable aortic endograft. We have discussed the p athophysiology of aortic aneurysms and the risk of ruptures. We have discussed rupture risk based on size. In addition we have discussed conservative measures and risk factor modification for prevention of increase in size of the aneurysm. the patient is scheduled for surveillance follow-up in approximately [address] scan. Thank you for allowing us to participate in the care of this patient Orders: Orders Blood Urea Nitrogen 1 Year I71.43 - Infrarenal abdominal aortic aneurysm, wit hout rupture Creatinine 1 Year I71.43 - Infrarenal abdominal aortic aneurysm, without rupture CT angio abdomen pelvis 1 Year I71.43 - Infrarenal abdominal aortic aneurysm, without rupture Coding Level of Care Code Est Pt Level 4 (53547) Diagnoses Infrarenal abdominal aortic aneurysm (AAA) without rupture I71.43 Abdominal aorta location: infrarenal aorta Presence of rupture: without rupture
== END 2025-08-17 11:18 | disposition home or self-care (01) ==
LOC: HO.HVS 10:50
PROVIDERS: PCP Nurse Practitioner Family; Visit Provider Surgery Vascular Surgery
DX: I71.43 Infrarenal abdominal aortic aneurysm, without rupture (principal)
CPT/HCPCS: 99214

== ENCOUNTER 2025-08-26 18:00 | Inpatient (IN) | payer MEDICARE, SELFPAY ==
--- NOTE | ~2025-08-26 | XR_ITS ---
EXAMINATION: XR CHEST CLINICAL INFORMATION: NGT placement COMPARISON: June 05, 2025. TECHNIQUE: Frontal view of the chest was obtained. FINDINGS: The NG tube is just below the left hemidiaphragm. Pulmonary reticular pattern. Patchy opacity right lower hemithorax. Cardiomediastinal silhouette size is normal. Calcified plaque thoracic aorta. Multilevel thoracolumbar spondylosis. XR/XR chest 1V IMPRESSION: NG tube at the gastroesophageal junction/rock small stomach region. Atelectasis versus airspace disease, right lung base and questionable small volume right-sided pleural effusion. Electronically signed by: Сергей Rasheed MD 08/29/2025 09:51 AM EDT
--- NOTE | ~2025-08-26 | CT_ITS ---
CLINICAL HISTORY: hernia CT abdomen and pelvis with contrast Comparison: 07/12/2025, 06/01/2024 Findings: Mild bibasilar atelectasis. Numerous hepatic cysts. Nodular liver worrisome for developing cirrhotic change. Mild splenomegaly. No focal hepatic solid mass identified. Normal pancreas and adrenal glands. No significant abnormality of the kidneys, ureters, or urinary bladder. Moderate sized left inguinal hernia containing a moderate length of small bowel with dilatation of small bowel in and proximal to the hernia. Findings are consistent with a partial or mild small-bowel obstruction with transition site at the hernia. Small volume fluid and mild fat stranding within the hernia sac. Otherwise normal bowel. Aortic aneurysm repair changes. Bones intact. IMPRESSION: 1. Small-bowel obstruction with transition point at the site of small-bowel entry into a moderate size left inguinal hernia. Fluid and fat stranding within the hernia sac raises concern for strangulation. 2. Cirrhosis and mild splenomegaly. This document has been electronically signed by: Nima Reese MD on 08/26/2025 22:15:47
[2025-08-26 18:10] VITALS: BP 161/95; PULSE 111; RESP 22; TEMP 37; O2SAT 97; BMI 21.8
--- NOTE | 2025-08-26 18:10 | ED_ITS ---
HPI - General Adult General Chief complaint: Urogenital-Male Stated complaint: hernia left groin Time Seen by Provider: 08/26/25 18:39 Source: patient Mode of arrival: ambulatory Limitations: no limitations History of Present Illness ED Provider: Dr. Noonan HPI narrative: This is a 79-year-old male history of multiple myeloma AFib not anticoagulated, left inguinal hernia status post repair back in January 2021 presented hospital today for evaluation of bulging in his left groin area limb pain in the left groin area. Patient stated that this week he noticed that there is a nickel size bulge. However it progressed. He developed intense pain from it. He did have hernia surgery with Dr. Sanchez in the past. This hernia does come and go however he is able to reduce it by himself . They opted for conservative management. However today he is unable to reduce it. Related Data Home Medications ?Medication ?Instructions ?Recorded ?Confirmed cholecalciferol (vit D3) 137.5 mcg 1 tab PO DAILY 05/0907/04/25 (5,500 unit)-vit K2 200 mcg tablet omega-3s 300 hj-saq-cvd-other 1 cap PO BEDTIME 3 07/04/25 [id number] oil 1,000 mg capsule ([place]-3 Fish Oil) aspirin 81 mg capsule 81 mg PO DAILY Hypertension 04/29/24 07/04/25 Previous Rx's ?Medication ?Instructions ?Recorded ondansetron 8 mg disintegrating 8 mg PO Q8H PRN Nausea 05/27/23 tablet atorvastatin 40 mg tablet 40 mg PO BEDTIME #90 tabs lisinopril 5 mg tablet 5 mg PO DAILY #90 tabs 03/29 metoprolol succinate 100 mg 100 mg PO DAILY #90 tabs 0 03/29/25 tablet,extended release 24 hr hydrochlorothiazide 25 mg tablet 25 mg PO DAILY #90 ta bs 04/09/25 sulfamethoxazole 800 1 tab PO DAILY #90 tabs 04/09 08/03 mg-trimethoprim 160 mg tablet (Bactrim DS) acyclovir 400 mg tablet 400 mg PO DAILY #90 tabs potassium chloride 20 mEq 20 meq PO DAILY #90 tabs tablet,extended release finasteride 5 mg tablet 5 mg PO DAILY 90 days #90 ta bs 06/26/25 food supplemt, lactose-reduced 1 ea PO 1XD #24 ea 07/10 01/03 (Ensure oral liquid) amlodipine 10 mg tablet (Norvasc) 10 mg PO DAILY #90 t abs 08/17/25 Allergies Allergy/AdvReac Type Severity Reaction Status Date / Time No Known Allergies Allergy Verified 08/26/25 18:10 Review of Systems 2 Review of Systems: Pertinent review of systems as mentioned in HPI. All other system otherwise negative. [facility] Past Medical History [facility] Narrative: Medical history as mentioned in HPI Medical History Pneumonia Statin intolerance HTN (hypertension) AAA (abdominal aortic aneurysm) Vitamin D deficiency Subclinical hyperthyroidism Multinodular thyroid Pancytopenia Leukopenia Multiple myeloma Surgical History Hx of hernia repair (07/08/18) History of bone marrow biopsy Hx of tooth extraction History of back surgery Hx of umbilical hernia repair (06/28/13) History of AAA (abdominal aortic aneurysm) repair Family History Family History Father CVD (cardiovascular disease) AAA (abdominal aortic aneurysm) Mother Stomach cancer Social History Social History Household Members: Spouse Housing: House Are you a primary adult live in caregiver to a significant other at home: No Do you presently have visiting nurse or other home services: No Alcohol intake: former Comment: Patient refuses bed alarm Patient Tobacco Use Status: Former Tobacco user Years Smoked: 38 e-Cigarette/Vaping Use: Never Used Second Hand Smoke Exposure: No Special tiesha needs: No Agree to transfusion: Yes Advance Directives: Yes Advance Directives on File: Yes Advance Directives Date on File: 01/11/21 service: Yes Current occupational status: employed and retired Cognitive needs: No Hearing needs: No Vision needs: No Physical Exam ED Exam Exam: General: Pleasant, no distress, interacting appropriately Head: Normacephalic, atraumatic ENT: oral mucosa moist, neck supple, no tracheal deviation Cardiovascular: regular rate, regular rhythm, no murmurs, rubbing, gallops Respiratory: CTAB, no wheeze, rales, rhonchi Gastrointestinal: Soft, non distended, left lower quadrant pain : Left groin swelling appreciated on exam. Appears to be incarcerated hernia. Bulging hard on exam Neurological: Awake and alert, no facial droop noted Skin: Warm and dry Psychiatric: Appropriate mood and thoughts Vital Signs: Vital Signs - 24 hr 08/26/25 18:10 08/26/25 18:44 Temperature 98.6 F Pulse Rate 111 H Respiratory Rate 22 H 18 Blood Pressure 161/95 H Pulse Oximetry 97 Oxygen Delivery Method Room Air BMI result Body Mass Index 21.8 Course Course Course Narrative: This is a rapid medical exam performed by Casper Kraus NP: Additional HPI, ROS, PE not included below will be deferred to primary provider. Patient is a 79y/o M with known L inguinal hernia s/p repair x 2, can typically reduce himself at home, presenting with complaint of L groin pain and swelling, pain radiating to penis and abdomen. He tried reducing at home and felt the swelling got worse. Nausea due to pain. Plan: labs, UA Medications Administered Generic Name Dose Route Start Last Admin Trade Name Freq PRN Reason Stop Dose Admin Dextrose/Lactated Ringer's 1,000 mls @ 100 mls/hr 08/26/25 19:15 08/26/25 19:53 D5lr IVCONT 100 mls/hr .Q10H JOYCELYN Administration Ondansetron HCl 4 mg 08/26/25 19:09 08/26/25 19:34 Ondansetron Hcl 4 Mg/2 Ml Vial IVPUSH 4 mg Q8H PRN Administration Nausea and Vomiting Oxycodone HCl 5 mg 08/26/25 19:09 08/26/25 19:33 Oxycodone Hcl Immed Release 5 Mg Tablet PO 5 mg Q6H PRN Administration Pain, Moderate(Pain Scale 4-6) Discontinued Medications Generic Name Dose Route Start Last Admin Trade Name Freq PRN Reason Stop Dose Admin Hydromorphone HCl 1 mg 08/26/25 18:39 08/26/25 18:44 Hydromorphone Hcl 1 Mg/Ml Syringe IVPUSH 08/26/25 18:40 1 mg ONCE ONE Administration Protocol Sodium Chloride 1,000 mls @ 999 mls/hr 08/26/25 18:45 08/26/25 19:47 Ns IV 08/26/25 19:45 Infused .Q1H1M JOYCELYN Infusion Iohexol 85 ml 08/26/25 21:00 08/26/25 21:01 Iohexol 350 Mg/Ml 100 Ml Infus..Btl IV 08/26/25 21:01 85 ml ONCE ONE Administration Ondansetron HCl 4 mg 08/26/25 18:12 08/26/25 18:15 Ondansetron Odt 4 Mg Tab.Rapdis TRANSLINGU 08/26/25 18:13 4 mg ONCE ONE Administration Medical Decision Making Medical Decision Making [facility] Narrative: 79-year-old male history of left inguinal hernia status post repair back in January 2021, AFib not anticoagulated, presented hospital today for evaluation of incarcerated left inguinal hernia. IV fluid be given the patient. We will plan to give patient some nausea medicine along with some pain medicine IV Dilaudid. We will obtain a CT abdomen and pelvis as well. I am concerned for incarcerated hernia. We will plan to consult general surgery team. I did attempted to reduce this incarcerated hernia with IV Dilaudid however unsuccessful. Abdominal lab work will be obtained including lactic acid, type and screening PT INR will be obtained in case the patient will require OR. Discussed the case with the general surgeon on-call Dr. Sanchez We will plan to admit the patient to the hospital for incarcerated left inguinal hernia. Differential Diagnosis Differential Diagnoses: The differential diagnosis associated with the presentation includes Incarcerated hernia, strangulated hernia, left inguinal hernia. Consult Healthcare Provider Management of the patient was discussed with: Handkerchief Cutter (Dr. Sanchez) Lab Data [facility] Lab Attestation statement: I reviewed the patient's lab results. 08/26/25 18:35 08/26/25 18:35 Labs: Lab Results 08/26/25 Range/Units 18:35 WBC 5.8 (4.8-10.8) X10*3/uL RBC 4.18 L (4.60-5.80) X10*6/uL Hgb 13.7 L (14.0-18.0) g/dl Hct 41.3 L (42.0-52.0) % MCV 98.8 H (80.0-98.0) fL MCH 32.8 (27.0-33.0) pg MCHC 33.2 (31.0-36.0) g/dl RDW 13.4 (11.0-16.0) % Plt Count 115 L D (160-400) X10*3/uL MPV 11.7 (9.4-12.4) fL Immature Gran % (Auto) 0.4 (0.0-0.4) % Neut % (Auto) 60.6 (45-73) % Lymph % (Auto) 23.8 (20-40) % [place] % (Auto) 13.5 H (2-11) % Eos % (Auto) 1.2 (0-4) % Baso % (Auto) 0.5 (0-2) % Lymph # (Auto) 1.3 (1.2-4.9) X10*3/uL [place] # (Auto) 0.8 (0.1-1.2) X10*3/uL Eos # (Auto) 0.1 (0.0-0.4) X10*3/uL Baso # (Auto) 0.0 (0.0-0.2) X10*3/uL Abs Immat Gran (auto) 0.02 (0.00-0.03) X10*3/uL Absolute Neuts (auto) 3.4 (2.0-8.3) x10*3/uL Absolute Nucleated RBC 0.000 (0.0-0.012) X10*3/uL Nucleated RBC % (auto) 0.0 (0.0-0.2) /100WBC Smear Tech's Comments VERIFIED Sodium 140 (135-145) mmol/L Potassium 3.3 (3.3-5.1) mmol/L Chloride 103 (96-108) mmol/L Carbon Dioxide 25 (22-29) mmol/L Anion Gap 15 (12-20) BUN 26 H (9-16) mg/dL Creatinine 0.82 (0.5-1.4) mg/dL Estim Creat Clear Calc 70.3 Estimated GFR > 60 Random Glucose 131 H (60-115) mg/dL Lactic Acid 2.0 (0.5-2.0) mmol/L Calcium 9.4 (8.4-10.2) mg/dL Total Bilirubin 0.9 (0.0-1.0) mg/dL AST 22 (5-37) U/L ALT 7 (0-40) U/L Alkaline Phosphatase 75 (39-117) U/L Total Protein 6.3 L (6.5-8.0) g/dL Albumin 4.7 (3.5-5.0) g/dL Independent Interpretation I performed an independent interpretation of an: CT Scan Critical Care Time Critical Care Time Critical Care Time: Yes Total Critical Care Time: 40 Attestation: Time is exclusive of separately billable procedures. Time includes: direct patient care, patient reassessment, coordination of patient care, interpretation of data (laboratory data, pulse oximetry, arterial blood gases and chest xrays), review of patient's medical records, medical consultation and documentation of patient care. Procedures excluded from critical care time: central intravenous line placement and electrocardiography. Discharge Plan Discharge Clinical Impression: Incarcerated hernia Patient Disposition: Admitted As Inpatient Interventions: Admission Worksheet (ED) Last Done: 08/26/25 20:22
--- OUTSIDE RECORDS SUMMARY | 2025-08-26 18:32 | XMS_ITS | Patient Health Record ---
Author Organization [facility] Address [address] [place] [address] Care Team Providers Care Skid Strapper Name Role Phone CLIFF LINTON Primary Care Provider Ana Madsen Unavailable [phone] Allergies Allergen (clinical drug ingredient) Drug/Non Drug [...] 1 capsule as needed Orally Once a day; Duration: 30 day(s) Active Vitamin D3 Active Fish [...] Problem Status W/U Status Risk Notes Problem Screening for malignant neoplasm of colon (627645109) Encounter for screening for malignant neoplasm of colon (Z12.11) Active confirmed Problem Nausea and vomiting (88602207) Nausea with vomiting, unspecified (R11.2) Active confirmed Problem Preprocedural examination (141391972245019) Preprocedural examination (Z01.818) Active confirmed Problem Constipation (45042204) Constipation, unspecified constipation type (K59.00) Active confirmed Plan Of Treatment No Information Insurance Providers Payer Name Payer Address Payer Phone Subscriber Number Group Number Insured Name Patient Relationship to Insured Coverage Start Date Coverage End Date [facility] [address] [place] [phone] [id number] ANA ORTIZ Self - patient is the insured Medical (General) History Medical History History ICD Code Emphysema-mild Denies MA,DM,CVA,renal disease Arthritis Multiple myeloma 10/2019--sees Dr. Chacorta mendez for chemotherapy HTN Neg. colonoscopy in 08/2009 Hyperlipidemia Abdominal aortic aneurysm with treatment as below Surgical History Surgery Date(Month/Year) Lumbar surgery - Dr. De La Paz 2007 Endovascular graft placement at [facility] for AAA--sees Dr. Galeano now 2009 Hernia repairs- left inguinal and umbili broderick
--- OUTSIDE RECORDS SUMMARY | 2025-08-26 18:32 | XMS_ITS | Clinical Summary ---
Author Organization Patient Business Ser [facility] Address [address] [place] [address] Care Team Providers Care Lead Cargoman Name Role Phone Lita Hill Primary Care Provider [phone] Encounters Date Type Department Care Team Description 08/02/2025 8:09 AM EDT - 08/02/2025 11:59 PM EDT Hospital Encounter [facility] PET Scan [address] [place] [address] Multiple myeloma not having achieved remission (CMS/HCC V24, CMS/HCC V28) Discharge Disposition: Home or Self Care from Last 3 Months Social History Tobacco Use Types Packs/Day Years Used Date Smoking Tobacco: Never Assessed Sex and Gender Information Value Date Recorded Sex Assigned at Not on file Legal Sex Male 12:02 PM EDT Gender Identity Not on file Sexual Orientation Not on file Plan of Treatment Health Maintenance Due Date Last Done Comments Depression Screening 11/09/2024 Zoster Vaccines (2 of 2) 01/30/2025 025, 04/12/2016, 02/11/2016 COVID-19 Vaccine (4 - 2024-2 6 season) 2025 09/09/2021, 02/13/2021, 01/16/2021 Influenza Vaccine (#1) 2025 , 07/10/2021, 11/23/2020 Cholesterol Screening (Lipid Panel) 08/17/2025 Falls Risk Assessment 08/17/2025 Hepatitis C Screening 08/17/2025 Hypertension/CHF/CAD Annual BMP Blood Test 08/17/2025 05/07/2021, 05/07/2021, 12/19/2019 Medicare Annual Wellness Visit 08/17/2025 Social Influencers of Health Screening 08/17/2025 DTaP,Tdap,and Td Vaccines (2 - Td or [...] Procedure Name Priority Date/Time Associated Diagnosis Comments PET CT SKULL TO MID THIGH SUBSEQUENT Routine 08/02/2025 10:00 AM EDT Multiple myeloma not having achieved remission ([facility] V24, [facility] V28) from Last 3 Months Results * PET CT Skull to Mid Thigh Subsequent (08/02/2025 10:00 AM EDT) Anatomical Region Laterality Modality Body Radiographic Maegan ging 08/03/2025 3:59 PM EDT Impressions 08/03/2025 4:04 PM EDT Mild focal left adrenal activity is nonspecific and similar to the prior study. No metabolically active lymphadenopathy or bony lesions. -------- FINAL REPORT -------- Dictated By: Young Benedict Dictated Date: 08/03/2025 15:59 ET Assigned Physician: Young Benedict Reviewed and Electronically Signed By: Young Beneidct Signed Date: 08/03/2025 16:04 ET Workstation ID: [id number] Transcribed By: Self Edit Transcribed Date: 08/03/2025 15:59 ET Narrative 08/03/2025 4:04 PM EDT INDICATION: Multiple myeloma Prior relevant studies: Images from remote outside PET/CT from July 30, 2021 reviewed. Please note these images could not manipulated nor could the SUV values be measured. Radiopharmaceutical: 13.6 mCi of F-18 FDG IV. Blood glucose: 105 mg/dl. PROCEDURE: Routine body FDG PET-CT imaging was performed from the top of the skull to the mid thighs and reconstructed in axial, coronal, and sagittal planes at the computer workstation with fused data from both the PET imaging study and attenuation correction CT. The CT portion of the examination was done strictly for attenuation correction and is not a true diagnostic CT examination. CTDI: 8.41 mGy FINDINGS: HEAD AND NECK: No abnormal FDG activity. THORAX: No abnormal FDG activity. ABDOMEN/PELVIS: Mild activity associated with the left adrenal gland with SUV max of 3.2 is nonspecific. No discrete adrenal nodule noted. Increased uptake noted in this region on the prior scan. MUSCULOSKELETAL: No abnormal FDG activity. Procedure Note Young Benedict MD - 08/03/2025 INDICATION: Multiple myeloma Prior relevant studies: Images from remote outside PET/CT from 2020 reviewed. Please note these images could not manipulated norcould the SUV values be measured. Radiopharmaceutical: 13.6 mCi of F-18 FDG IV. Blood glucose: 105 mg/dl. PROCEDURE: Routine body FDG PET-CT imaging was performed from the top ofthe skull to the mid thighs and reconstructed in axial, coronal, andsagittal planes at the computer workstation with fused data from both thePET imaging study and attenuation correction CT. The CT portion of theexamination was done strictly for attenuation correction and is not a truediagnostic CT examination. CTDI: 8.41 mGy FINDINGS: HEAD AND NECK: No abnormal FDG activity. THORAX: No abnormal FDG activity. ABDOMEN/PELVIS: Mild activity associated with the left adrenal gland withSUV max of 3.2 is nonspecific. No discrete adrenal nodule noted. Increaseduptake noted in this region on the prior scan. MUSCULOSKELETAL: No abnormal FDG activity. IMPRESSION: Mild focal left adrenal activity is nonspecific and similar to the priorstudy. No metabolically active lymphadenopathy or bony lesions. -------- FINAL REPORT -------- Dictated By: Young Benedict Dictated Date: 08/03/2025 15:59 ET Assigned Physician: Young Benedict Reviewed and Electronically Signed By: Young Benedict Signed Date: 08/03/2025 16:04 ET Workstation ID: [id number] Transcribed By: Self Edit Transcribed Date: 08/03/2025 15:59 ET us Andrea Beach MD IMG NM PROCEDURES Final Result from Last 3 Months Insurance [employer] Care Teams Lead Cargoman Relationship Specialty Start Date End Date Lita Hill [address] [place] [phone] PCP - General 03/11/18
--- OUTSIDE RECORDS SUMMARY | 2025-08-26 18:32 | XMS_ITS | Clinical Summary ---
Author Organization [address] Address [address] [place] [address] Phone Care Team Providers Care Public Health Epidemiologist Name Role Phone Tho Cruz NP Primary [...] vaccine 06/09/2025 Covid-19 vaccine series ( - 2024- season) 2025 Colon cancer screening, Colonoscopy Discontinued [...] EDT [facility] eGFR (-INDONESIAN) >60 >60 mL/min/1. 73m2 05/07/2021 3:12 AM EDT [facility] eGFR (NON -Maltese) >60 >60 mL/min/1. 73m2 05/07/2021 3:12 AM [...] mmol/L 05/07/2021 3:12 AM EDT [facility] Calcium 8.5 8.5 - 10.1 mg/dL 05/07/2021 3:12 AM EDT [facility] Blood Venipuncture / Unknown 05/07/2021 2:40 AM EDT 05/07/2021 2:44 AM EDT Vishnu Fontanez MD LAB BLOOD ORDERABLES Fin al Result Performing Organization Address [facility]/State/[facility] Co de Phone Number [facility] [address] [place] [address] from Last 3 Months or Most Recently Relevant to Health Maintenance Insurance [place]IC[place] [facility] [place] [facility] [place] [facility] [place] Care Teams Public Health Epidemiologist Relationship Specialty Start Date End Date Tho Cruz NP [address] [address] PCP - General Family Medicine 05/07/21
--- OUTSIDE RECORDS SUMMARY | 2025-08-26 18:32 | XMS_ITS | Clinical Summary ---
Author Organization [facility] Address [address] [place] [id number] Phone Care Team Providers Care Software Designer Name Role Phone Amena Kaplan MD Primary [...] EST) SODIUM 135(L) 136 - 145 mmol/L [facility] LIC# [id number] POTASSIUM 4.1 3.4 - 5.1 mmol/L [facility] LIC# [id number] CHLORIDE 101 98 - 107 mmol/L [facility] LIC# [id number] CO2 29 22 - 31 mmol/L [facility] LIC# [id number] BUN 13 6 - 23 mg/dL [facility] LIC# [id number] CREATININE 0.79 0.50 - 1.20 mg/dL [facility] LIC# [id number] GLUCOSE 99 70 - 100 mg/dL [facility] LIC# [id number] ALBUMIN 3.0(L) 3.5 - 5.2 g/dL [facility] LIC# [id number] TOTAL PROTEIN 7.9 6.4 - 8.3 g/dL [facility] LIC# [id number] CALCIUM 8.8 8.8 - 10.7 mg/dL [facility] LIC# [id number] ALKALINE PHOSPHATASE 75 40 - 129 U/L [facility] LIC# [id number] TOTAL BILIRUBIN 0.3 0.2 - 1.2 mg/dL [facility] LIC# [id number] AST 16 <41 U/L [facility] LIC# [id number] ALT 24 <42 U/L [facility] LIC# [id number] GLOBULIN 4.9(H) 1.9 - 4.1 g/dL [facility] LIC# [id number] EGFR 89 >59 mL/min/1.7 3m2 [facility] LIC# [id number] Comment:If patient is Tara n-Latvian, multiply result by 1.159. Estimated glomerular filtration rate calculated using the CKD-EPI equation. ANION GAP 5(L) 7 - 17 mmol/L [facility] LIC# [id number] Blood 12/19/2019 1:58 PM EST 12/19/2019 2:12 PM EST Abel Jin MD LAB BLOOD ORDERABLES Final Result [facility] LIC# [id number] [address] [place] [id number] from Last 3 Months or Most Recently Relevant to Health Maintenance Insurance GENERIC MEDICARE REPLACEMENT GENERIC MEDICARE REPLACEMENT GENERIC MEDICARE REPLACEMENT GENERIC MEDICARE REPLACEMENT GENERIC MEDICARE REPLACEMENT GENERIC MEDICARE REPLACEMENT GENERIC MEDICARE REPLACEMENT GENERIC MEDICARE REPLACEMENT GENERIC MEDICARE REPLACEMENT Care Teams Software Designer Relationship Specialty Start Date End Date Amena Kaplan MD 1960 [facility] [place] [id number] PCP - General Internal Medicine 12/19/19 Additional Source Comments The information contained in this document represents components of the legal health record. It is not the complete legal health record.[facility]
[2025-08-26 18:44] VITALS: RESP 18
[2025-08-26 18:49] LABS: NRBC Abs Auto 0.000 X10*3/uL (0.0-0.012); NRBC Pct Auto 0.0 /100WBC (0.0-0.2); PLT CLUMP 1; SCAN SMEAR FLAG 1
[2025-08-26 18:50] LABS: Hematocrit 41.3 % (42.0-52.0); Hemoglobin 13.7 g/dl (14.0-18.0); Imm Gran Abs Auto 0.02 X10*3/uL (0.00-0.03); Imm Gran Pct Auto 0.4 % (0.0-0.4); Lymphocytes Absolute Auto 1.3 X10*3/uL (1.2-4.9); MANUAL DIFF FLAG SCAN; Mean Corpuscular HGB Conc 33.2 g/dl (31.0-36.0); Mean Corpuscular Hemoglobin 32.8 pg (27.0-33.0); Mean Corpuscular Volume 98.8 fL (80.0-98.0); Red Blood Count 4.18 X10*6/uL (4.60-5.80)
[2025-08-26 19:07] LABS: Alanine Aminotransferase 7 U/L (0-40); Albumin Level 4.7 g/dL (3.5-5.0); Anion Gap 15 (12-20); Aspartate Amino Transferase 22 U/L (5-37); Blood Urea Nitrogen 26 mg/dL (9-16); Calcium 9.4 mg/dL (8.4-10.2); Carbon Dioxide 25 mmol/L (22-29); Chloride 103 mmol/L (96-108); Creatinine Clr Calc Pharmacy 70.3; Estimated Glomerular Filt Rate > 60; Potassium 3.3 mmol/L (3.3-5.1); Sodium 140 mmol/L (135-145); Total Protein 6.3 g/dL (6.5-8.0)
[2025-08-26 19:22] LABS: White Blood Count 5.8 X10*3/uL (4.8-10.8)
[2025-08-26 19:23] LABS: Platelet Count 115 X10*3/uL (160-400)
[2025-08-26] MEDS: oxyCODONE HCl Immed Release 5 MG TABLET PO (19:33)
[2025-08-26 19:37] LABS: Alkaline Phosphatase 75 U/L (39-117)
[2025-08-26 19:43] VITALS: BP 140/84; PULSE 109; RESP 18; TEMP 36; O2SAT 94
[2025-08-26] MEDS: Dextrose 5 % and Lactated Ring 1,000 ML 100 ML IVCONT (19:53)
--- NOTE | 2025-08-26 20:45 | PM.CNGS ---
History of Present Illness Consult details Consult date: 08/26/25 Requesting physician: Iliana Noonan Narrative: 79-year-old male patient with a previous history of left inguinal hernia x2 returning now with complaints of pain in the left groin. He had been feeling a small marble defect for several years and was able to easily reduce this with slight pressure and gentle massage. He has been wearing a hernia truss to help keep the hernia reduced and this seemed to be working until today when he began to feel a larger and harder lump in the left groin. He tried to reduce the hernia as before however was unsuccessful. He subsequently presented to the emergency department for further evaluation. In the ED he was noted to have a lump in the left groin which is non reducible. There are no overlying skin changes noted. He denies nausea, vomiting, diarrhea or constipation. He is admitted to the surgical service for further management of this incarcerated recurrent left inguinal hernia. Review of Systems Review of Systems: Yes all other systems are reviewed and are negative PMFSH Past Medical History Medical History Pneumonia Statin intolerance HTN (hypertension) AAA (abdominal aortic aneurysm) Vitamin D deficiency Subclinical hyperthyroidism Multinodular thyroid Pancytopenia Leukopenia Multiple myeloma Family History Family History Father CVD (cardiovascular disease) AAA (abdominal aortic aneurysm) Mother Stomach cancer Surgical History Surgical History Hx of hernia repair (07/08/18) History of bone marrow biopsy Hx of tooth extraction History of back surgery Hx of umbilical hernia repair (06/28/13) History of AAA (abdominal aortic aneurysm) repair Social History Social History Household Members: Spouse Housing: House Are you a primary caregiver services home to a significant other at home: No Do you presently have visiting nurse or other home services: No Alcohol intake: former Comment: Patient refuses bed alarm Patient Tobacco Use Status: Former Tobacco user Years Smoked: 38 e-Cigarette/Vaping Use: Never Used Second Hand Smoke Exposure: No Special tiesha needs: No Agree to transfusion: Yes Advance Directives: Yes Advance Directives on File: Yes Advance Directives Date on File: 01/11/21 service: Yes Current occupational status: employed and retired Cognitive needs: No Hearing needs: No Vision needs: No Meds Allergies Allergy/AdvReac Type Severity Reaction Status Date / Time No Known Allergies Allergy Verified 08/26/25 18:10 Active Medications: Current Medications Acetaminophen (Acetaminophen 325 Mg Tablet) 650 mg PO Q6H PRN PRN Reason: Pain, Mild 1-3,fever,headache Calcium Carbonate (Calcium Carbonate 750 Mg Tab.Chew) 750 mg PO Q4H PRN PRN Reason: Heartburn Hydromorphone HCl (Hydromorphone Hcl 0.5 Mg/0.5 Ml Syringe) 0.5 mg IVPUSH Q3H PRN; Protocol PRN Reason: Pain, Severe (Pain Scale 7-10) Dextrose/Lactated Ringer's (D5lr) 1,000 mls @ 100 mls/hr IVCONT .Q10H JOYCELYN Last Admin: 08/26/25 19:53 Dose: 100 mls/hr Magnesium Hydroxide (Milk Of Magnesia 30 Ml Oral.Susp) 30 ml PO DAILY PRN PRN Reason: Constipation Melatonin (Melatonin 3 Mg Tablet) 6 mg PO BEDTIME PRN PRN Reason: Insomnia Ondansetron HCl (Ondansetron Hcl 4 Mg/2 Ml Vial) 4 mg IVPUSH Q8H PRN PRN Reason: Nausea and Vomiting Last Admin: 08/26/25 19:34 Dose: 4 mg Oxycodone HCl (Oxycodone Hcl Immed Release 5 Mg Tablet) 5 mg PO Q6H PRN PRN Reason: Pain, Moderate(Pain Scale 4-6) Last Admin: 08/26/25 19:33 Dose: 5 mg Sodium Chloride (0.9 % Sodium Chloride Flush 3 Ml Syringe) 3 ml IVFLUSH QSHIFT [facility] Home Medications ?Medication ?Instructions ?Recorded ?Confirmed ?Last Taken ?Type cholecalciferol (vit D3) 137.5 mcg 1 tab PO DAILY 05/24/23 07/04/25 05/23/23 09:00 History (5,500 unit)-vit K2 200 mcg tablet omega-3s 300 nk-zvj-ild-other 1 cap PO BEDTIME 05/24/23 07/04/25 05/22/23 History [id number] oil 1,000 mg capsule ([place]-3 Fish Oil) aspirin 81 mg capsule 81 mg PO DAILY Hypertension 04/29/24 07/04/25 Unknown History Physical Exam Vital Signs: Vital Signs: Last Vital Signs Temp 96.8 F 08/26/25 19:43 Pulse 109 H 08/26/25 19:43 Resp 18 08/26/25 19:43 BP 140/84 H 08/26/25 19:43 Pulse Ox 94 08/26/25 19:43 O2 Del Method Room Air 08/26/25 19:43 BMI result Body Mass Index 21.8 Const: General: cooperative and no acute distress Nutritional Appearance: well nourished Orientation/consciousness: patient oriented x3 Limitations: no limitations HEENT: Head: Yes normocephalic and Yes atraumatic Ears: hearing grossly normal bilaterally Resp: Effort & Inspection: normal respiratory effort, no audible wheezes, no cough and no respiratory distress Cardio: Jugular venous distension: no JVD GI: Other: Soft and nondistended. Tender lump in the left groin which is non reducible measuring approximately 3-4 cm in diameter. No right inguinal hernias appreciated. Inspection: Yes normal to inspection Percussion: Yes normal to percussion Auscultation: normal bowel sounds Skin: Other: Warm, dry, no rash Neuro: General: patient oriented x3 Extrem: General: Yes no clubbing, cyanosis or edema Results Labs 08/26/25 18:35 08/26/25 18:35 Labs: Abnormal lab results 08/26/25 Range/Units 18:35 RBC 4.18 L (4.60-5.80) X10*6/uL Hgb 13.7 L (14.0-18.0) g/dl Hct 41.3 L (42.0-52.0) % MCV 98.8 H (80.0-98.0) fL Plt Count 115 L D (160-400) X10*3/uL [place] % (Auto) 13.5 H (2-11) % BUN 26 H (9-16) mg/dL Random Glucose 131 H (60-115) mg/dL Total Protein 6.3 L (6.5-8.0) g/dL Short CBC 08/26/25 Range/Units 18:35 WBC 5.8 (4.8-10.8) X10*3/uL Hgb 13.7 L (14.0-18.0) g/dl Hct 41.3 L (42.0-52.0) % Plt Count 115 L D (160-400) X10*3/uL BMP 08/26/25 18:35 Sodium 140 Potassium 3.3 Chloride 103 Carbon Dioxide 25 BUN 26 H Creatinine 0.82 Calcium 9.4 Liver Function 08/26/25 Range/Units 18:35 Total Bilirubin 0.9 (0.0-1.0) mg/dL AST 22 (5-37) U/L ALT 7 (0-40) U/L Alkaline Phosphatase 75 (39-117) U/L Albumin 4.7 (3.5-5.0) g/dL All other labs normal. Assessment and Plan (1) Inguinal hernia of left side without obstruction or gangrene: Status: Inactive Plan 71-year-old male patient presenting with a recurrent left inguinal hernia with incarceration. I recommended admission to the surgical service with repair of the recurrent incarcerated left inguinal hernia with mesh in the a.m. tomorrow. I reviewed the procedure, risks, and alternatives and he consents to the surgery. Procedures Date of Service Date of Service: 08/26/25
[2025-08-26] MEDS: iohexoL 350 MG/ML 100 ML INFUS..BTL 85 ML IV (21:01)
[2025-08-26 21:48] LABS: INTERNATIONAL NORM RATIO 1.2 (0.9-1.1); Prothrombin Time 13.8 SEC (10.9-12.4)
[2025-08-26 22:00] VITALS: BP 130/67; PULSE 96; RESP 18; TEMP 36.4; O2SAT 93
[2025-08-26 22:35] VITALS: BMI 21.6
[2025-08-26 23:10] VITALS: RESP 18
[2025-08-27] VITALS (9 sets, daily range): BP systolic 125–147; BP diastolic 66–82; PULSE 83–99; RESP 12–20; TEMP 36–38; O2SAT 93–95
--- NOTE | 2025-08-27 00:47 | P.EN_ITS ---
Event Note Date of Service: 08/27/25 Event Note: Per Lab overnight: Trixie, Since Patient is on CHRISTIAN medication his TS came positive and we have to leave for 1st shift. We might send specimen to [facility] [employer]. I notified agronomy supervisor she is aware. Please contact Lab if you need Further information or any requirement for Blood product. Thank you FOllow up likely needed on day shift, will sign out in the AM Time Spent With Patient Time: Total time managing care of this patient today ____ minutes.
[2025-08-27 02:11] LABS: Appearance Urine Clear; Glucose Urine UA Negative (Negative); PH 6.0 (5.0-9.0); Specific Gravity - Urine >= 1.030 (1.005-1.025)
[2025-08-27] MEDS: Dextrose 5 % and Lactated Ring 1,000 ML 100 ML IVCONT ×2 (06:06→16:19)
[2025-08-27] MEDS: 0.9 % Sodium Chloride Flush 3 ML SYRINGE IVFLUSH (07:18)
--- NOTE | 2025-08-27 08:21 | PC.NURSE ---
Dr. Sanchez made aware of T&S message from Blood Bank
--- NOTE | 2025-08-27 08:55 | PM.PNGS ---
Subjective Subjective Date of Service: 08/27/25 Interval history: Patient reports nausea and vomiting this morning. Continued pain in the left groin. Physical Exam Vital Signs: Vital Signs: Last Vital Signs Temp 97.3 F 08/27/25 07:17 Pulse 88 08/27/25 07:17 Resp 20 08/27/25 07:17 BP 147/72 H 08/27/25 07:17 Pulse Ox 93 08/27/25 07:17 O2 Del Method Room Air 08/27/25 07:17 BMI result Body Mass Index 21.6 Const: General: well developed Nutritional Appearance: well nourished Orientation/consciousness: patient oriented x3 Resp: Effort & Inspection: normal respiratory effort, no audible wheezes, no cough and no respiratory distress GI: Other: Continued palpable left inguinal hernia with tenderness to palpation. Abdomen is otherwise soft and nondistended. Neuro: General: patient oriented x3 Extrem: General: Yes no pedal edema Objective Data Active Medications Acetaminophen (Acetaminophen 325 Mg Tablet) 650 mg PO Q6H PRN PRN Reason: Pain, Mild 1-3,fever,headache Calcium Carbonate (Calcium Carbonate 750 Mg Tab.Chew) 750 mg PO Q4H PRN PRN Reason: Heartburn Hydromorphone HCl (Hydromorphone Hcl 0.5 Mg/0.5 Ml Syringe) 0.5 mg IVPUSH Q3H PRN; Protocol PRN Reason: Pain, Severe (Pain Scale 7-10) Last Admin: 08/27/25 07:40 Dose: 0.5 mg Documented By: AUBRIE Dextrose/Lactated Ringer's (D5lr) 1,000 mls @ 100 mls/hr IVCONT .Q10H JOYCELYN Last Admin: 08/27/25 06:06 Dose: 100 mls/hr Documented By: WILSON Magnesium Hydroxide (Milk Of Magnesia 30 Ml Oral.Susp) 30 ml PO DAILY PRN PRN Reason: Constipation Melatonin (Melatonin 3 Mg Tablet) 6 mg PO BEDTIME PRN PRN Reason: Insomnia Ondansetron HCl (Ondansetron Hcl 4 Mg/2 Ml Vial) 4 mg IVPUSH Q8H PRN PRN Reason: Nausea and Vomiting Last Admin: 08/27/25 07:17 Dose: 4 mg Documented By: AUBRIE Oxycodone HCl (Oxycodone Hcl Immed Release 5 Mg Tablet) 5 mg PO Q6H PRN PRN Reason: Pain, Moderate(Pain Scale 4-6) Last Admin: 08/26/25 19:33 Dose: 5 mg Documented By: VICK Sodium Chloride (0.9 % Sodium Chloride Flush 3 Ml Syringe) [facility] Last Admin: 08/27/25 07:18 Dose: 3 ml Documented By: BEIT Labs 08/26/25 18:35 08/26/25 18:35 Labs: Laboratory Results - last 24 hr 08/26/25 08/26/25 08/27/25 18:35 21:31 01:58 MCV 98.8 H MCH 32.8 MCHC 33.2 RDW 13.4 Plt Count 115 L D MPV 11.7 Immature Gran % (Auto) 0.4 Neut % (Auto) 60.6 Lymph % (Auto) 23.8 [place] % (Auto) 13.5 H Eos % (Auto) 1.2 Baso % (Auto) 0.5 Lymph # (Auto) 1.3 [place] # (Auto) 0.8 Eos # (Auto) 0.1 Baso # (Auto) 0.0 Abs Immat Gran (auto) 0.02 Absolute Neuts (auto) 3.4 Absolute Nucleated RBC 0.000 Nucleated RBC % (auto) 0.0 Smear Tech's Comments VERIFIED PT 13.8 H INR 1.2 H Anion Gap 15 Estim Creat Clear Calc 70.3 Estimated GFR > 60 Random Glucose 131 H Lactic Acid 2.0 Calcium 9.4 Total Bilirubin 0.9 AST 22 ALT 7 Alkaline Phosphatase 75 Total Protein 6.3 L Albumin 4.7 Urine Color Yellow Urine Appearance Clear Urine pH 6.0 Ur Specific [place] >= 1.030 H Urine Protein Negative Urine Glucose (UA) Negative Urine Ketones Trace Urine Blood Negative Urine Nitrite Negative Ur Leukocyte Esterase Negative Procedures Date of Service Date of Service: 08/27/25 Progress Note: A&P Assessment and plan (1) Incarcerated hernia: Status: Acute (2) Inguinal hernia, left: Status: Acute Plan 79-year-old male patient returning with a recurrent and incarcerated left inguinal hernia. I recommended repair of this recurrent incarcerated left inguinal hernia with mesh. After discussion of the procedure, risks, and alternatives, he consents to the surgery. He has been added onto the operative schedule for today. Time Spent With Patient Time: Total time managing care of this patient today ____ minutes. Quality Stroke Does the patient have a stroke diagnosis?: No VTE Prior VTE?: No VTE Risk Level:: Surgical - moderate VTE Device Contraindication: N/A - Device Ordered VTE Drug Contraindication: Treatment Not Indicated
--- NOTE | 2025-08-27 09:48 | HO.ANESPROP2 ---
HPI - Anesthesia Eval Consult details Narrative: for repair incarcerated recurrent left inguinal hernia PMFSH Active Problems Active Problems: All Active Problems Incarcerated hernia (Acute) Burn of finger and thumb of left hand, first degree (Acute) Burn of finger or finger nail without thumb, second degree (Acute) Greater trochanteric bursitis of right hip (Acute) Greater trochanteric bursitis of left hip (Acute) Tendinitis of left triceps (Acute) Osteoarthritis of hands, bilateral (Acute) Bilateral carotid artery stenosis (Acute) Physical exam (Acute) Parainfluenza (Acute) Ascending aorta dilatation (Acute) BPH w urinary obs/LUTS (Acute) Prostate nodule (Acute) Leg cramping (Acute) Elevated PSA (Acute) Essential hypertension (Acute) Non-rheumatic aortic stenosis (Acute) Screening PSA (prostate specific antigen) (Acute) Bilateral knee pain (Acute) Chronic constipation (Acute) Acid reflux (Acute) Nausea (Acute) Vomiting (Acute) AAA (abdominal aortic aneurysm) (Acute) Statin intolerance (Acute) Peripheral vascular disease (Acute) Mitral annular calcification (Acute) Atherosclerotic cardiovascular disease (Acute) Bilateral hip bursitis (Acute) Bilateral hip pain (Acute) Dyslipidemia (Acute) Screening PSA (prostate specific antigen) (Acute) Inguinal hernia, left (Acute) HTN (hypertension) (Acute) History of AAA (abdominal aortic aneurysm) repair (Acute) Vitamin D deficiency (Acute) Subclinical hyperthyroidism (Acute) Multinodular thyroid (Acute) Multiple myeloma (Acute) Past Medical History Medical History Pneumonia Statin intolerance HTN (hypertension) AAA (abdominal aortic aneurysm) Vitamin D deficiency Subclinical hyperthyroidism Multinodular thyroid Pancytopenia Leukopenia Multiple myeloma Narrative: Echo report of 03/2021 reviewed Family History Family History Father CVD (cardiovascular disease) AAA (abdominal aortic aneurysm) Mother Stomach cancer Family history of problems with anesthesia: No Surgical History Surgical History Hx of hernia repair (07/08/18) History of bone marrow biopsy Hx of tooth extraction History of back surgery Hx of umbilical hernia repair (06/28/13) History of AAA (abdominal aortic aneurysm) repair History of Problems with Anesthesia: No Social History Social History Household Members: Spouse Housing: House Are you a primary critical care transport nurse to a significant other at home: No Do you presently have visiting nurse or other home services: No Alcohol intake: former Comment: Patient refuses bed alarm Patient Tobacco Use Status: Former Tobacco user Years Smoked: 38 e-Cigarette/Vaping Use: Never Used Second Hand Smoke Exposure: No Special tiesha needs: No Agree to transfusion: Yes Advance Directives Date on File: 01/11/21 service: No Current occupational status: employed and retired Cognitive needs: No Hearing needs: No Vision needs: No Narrative Narrative: Opiates cause severe N&V. Meds Allergies Allergy/AdvReac Type Severity Reaction Status Date / Time No Known Allergies Allergy Verified 08/26/25 18:10 Active Medications: Current Medications Acetaminophen (Acetaminophen 325 Mg Tablet) 650 mg PO Q6H PRN PRN Reason: Pain, Mild 1-3,fever,headache Calcium Carbonate (Calcium Carbonate 750 Mg Tab.Chew) 750 mg PO Q4H PRN PRN Reason: Heartburn Hydromorphone HCl (Hydromorphone Hcl 0.5 Mg/0.5 Ml Syringe) 0.5 mg IVPUSH Q3H PRN; Protocol PRN Reason: Pain, Severe (Pain Scale 7-10) Last Admin: 08/27/25 07:40 Dose: 0.5 mg Dextrose/Lactated Ringer's (D5lr) 1,000 mls @ 100 mls/hr IVCONT .Q10H JOYCELYN Last Admin: 08/27/25 06:06 Dose: 100 mls/hr Magnesium Hydroxide (Milk Of Magnesia 30 Ml Oral.Susp) 30 ml PO DAILY PRN PRN Reason: Constipation Melatonin (Melatonin 3 Mg Tablet) 6 mg PO BEDTIME PRN PRN Reason: Insomnia Ondansetron HCl (Ondansetron Hcl 4 Mg/2 Ml Vial) 4 mg IVPUSH Q8H PRN PRN Reason: Nausea and Vomiting Last Admin: 08/27/25 07:17 Dose: 4 mg Oxycodone HCl (Oxycodone Hcl Immed Release 5 Mg Tablet) 5 mg PO Q6H PRN PRN Reason: Pain, Moderate(Pain Scale 4-6) Last Admin: 08/26/25 19:33 Dose: 5 mg Sodium Chloride (0.9 % Sodium Chloride Flush 3 Ml Syringe) 3 ml IVFLUSH QSHIFT [facility] Last Admin: 08/27/25 07:18 Dose: 3 ml Home Medications ?Medication ?Instructions ?Recorded ?Confirmed ?Last Taken ?Type cholecalciferol (vit D3) 137.5 mcg 1 tab PO DAILY 05/24/23 07/04/25 05/23/23 09:00 History (5,500 unit)-vit K2 200 mcg tablet omega-3s 300 iv-dwm-ixd-other 1 cap PO BEDTIME 05/24/23 07/04/25 05/22/23 History phdmf1m-urfk oil 1,000 mg capsule ([place]-3 Fish Oil) aspirin 81 mg capsule 81 mg PO DAILY Hypertension 04/29/24 07/04/25 Unknown History Exam Height,Weight and Vital Signs: Height 5 ft 9 in Weight 66.4 kg Last Vital Signs Temp 97.3 F 08/27/25 07:17 Pulse 88 08/27/25 07:17 Resp 20 08/27/25 07:17 BP 147/72 H 08/27/25 07:17 Pulse Ox 93 08/27/25 07:17 O2 Del Method Room Air 08/27/25 07:17 Pertinent Lab Results Pertinent Lab Results: Laboratory Tests 08/26/25 08/26/25 08/27/25 18:35 21:31 01:58 WBC 5.8 RBC 4.18 L Hgb 13.7 L Hct 41.3 L MCV 98.8 H MCH 32.8 MCHC 33.2 RDW 13.4 Plt Count 115 L D MPV 11.7 Immature Gran % (Auto) 0.4 Neut % (Auto) 60.6 Lymph % (Auto) 23.8 [place] % (Auto) 13.5 H Eos % (Auto) 1.2 Baso % (Auto) 0.5 Lymph # (Auto) 1.3 [place] # (Auto) 0.8 Eos # (Auto) 0.1 Baso # (Auto) 0.0 Abs Immat Gran (auto) 0.02 Absolute Neuts (auto) 3.4 Absolute Nucleated RBC 0.000 Nucleated RBC % (auto) 0.0 Smear Tech's Comments VERIFIED PT 13.8 H INR 1.2 H Sodium 140 Potassium 3.3 Chloride 103 Carbon Dioxide 25 Anion Gap 15 BUN 26 H Creatinine 0.82 Estim Creat Clear Calc 70.3 Estimated GFR > 60 Random Glucose 131 H Lactic Acid 2.0 Calcium 9.4 Total Bilirubin 0.9 AST 22 ALT 7 Alkaline Phosphatase 75 Total Protein 6.3 L Albumin 4.7 Urine Color Yellow Urine Appearance Clear Urine pH 6.0 Ur Specific [place] >= 1.030 H Urine Protein Negative Urine Glucose (UA) Negative Urine Ketones Trace Urine Blood Negative Urine Nitrite Negative Ur Leukocyte Esterase Negative Airway Mallampati Class: II TM Dist: <=3cm Neck ROM: Full Denture: Upper Heart: ok. mild . Lungs: ok Assessment and Plan Assessment Anesthesia Assessment: Anesthesia Plan Discussed and Chart Reviewed Final Anesthetic Review Family History of Problems with Anesthesia: No History of Problems with Anesthesia: No NPO: Yes ASA Class: III Final Preanesthetic Review: No Changes in Pt Med Stat, Meds/Allgs Chart Reviewed, Consent Obtained/Reviewed and Anes Risks/Benef Reviewed Patient Risk: Intermediate Procedure Risk: Low Anesthetic Plan Anesthetic Plan: GA and Agree w/ Assess. and Plan Disposition: Standard PACU
--- NOTE | 2025-08-27 10:51 | MHC.CM.PN ---
PT LIVES WITH IS INDEPDENT HAD NO SERVICES HAS A RIDE DC PLAN HOME N/S
--- NOTE | 2025-08-27 11:21 | W.PM.OPN ---
Operative Note Operative Note Date of Service: 08/27/25 Narrative: Preoperative diagnosis: Recurrent incarcerated left inguinal hernia Postoperative diagnosis: Same Procedure: Repair of recurrent incarcerated left inguinal hernia with mesh Surgeon: Tho Sanchez MD Hairspring Studder: None Anesthesia: General LMA Indications for procedure: 79-year-old male patient presenting with a palpable painful lump in the left groin. Patient has a previous history of 2 previous hernia repairs on the left side. On examination the patient has a non reducible left inguinal hernia which is tender to palpation. Operative findings: Loop of small bowel within the left inguinal hernia which was noted to be viable and reduced into the abdominal cavity. Specimen: None Estimated blood loss: 5 mL Complications: None Procedure details: Patient was brought to the OR and placed in a supine position. After administering general anesthesia the patient's abdomen was prepped with ChloraPrep and draped in a sterile fashion. A surgical time-out was called the consent confirmed. Patient received preoperative antibiotics and Venodyne boots were in place. Local anesthesia was then infiltrated over the left inguinal ligament. Incision was then made over the previous incision in the left groin and carried out through subcutaneous tissue Titi's fashion up to the external oblique aponeurosis. This was then incised with a scalpel and widened with the electrocautery. Hernia sac was identified lateral to the internal ring with surrounding mesh noted to be intact. Hernia sac was then entered and an ischemic appearing loop of small bowel was noted within the hernia sac. The ring of the hernia was opened using electrocautery and the bowel was noted to pink up. Bowel was felt to be viable and therefore was reduced into the abdominal cavity. Hernia sac was then reduced into the abdominal cavity. A preperitoneal space was then dissected circumferentially around the hernia defect and a medium plug placed within this defect. This was then secured circumferentially using a 1 Tycron suture. This was also used to close the fascial defect over the mesh. Wounds were then irrigated with saline solution and suctioned dry. Vessels and vas deferens were found to be intact and separate from the repair. External oblique aponeurosis was then closed using interrupted 2-0 Polysorb sutures. Approximately 6 mL of Zenrelef was then instilled below the external oblique aponeurosis. Titi's fascia and dermis were then reapproximated using interrupted 3-0 Polysorb sutures. Skin was closed using a running subcuticular 4-0 Polysorb suture. Steri-Strips, 4 x 4 gauze and Tegaderm were then applied. The patient tolerated the procedure well. Sponge, instrument, and needle counts reported as correct. The patient was transferred to PACU in stable condition.
--- NOTE | 2025-08-27 14:28 | PHA.MEDREC ---
Pharmacy Consult ? Medication Reconciliation Pharmacy has completed the medication reconciliation.Med rec complete, spoke with patient and compared with pharmacy claim history
[2025-08-28 00:25] VITALS: BP 156/98; PULSE 100; RESP 18; TEMP 37.3; O2SAT 92
[2025-08-28] MEDS: Dextrose 5 % and Lactated Ring 1,000 ML 100 ML IVCONT ×3 (02:13→22:30)
--- NOTE | 2025-08-28 04:55 | PC.NURSE ---
At 01:30 pt rang call zambrano, endorsing 8/10 abdominal pain. Dilaudid prn med administered. Several minutes later pt vomited 50cc of bile. Zofran prn administered with good effect.
[2025-08-28 06:00] VITALS: BP 124/72; PULSE 67; RESP 16; TEMP 36.9; O2SAT 92
--- NOTE | 2025-08-28 07:44 | PM.PNGS ---
Subjective Subjective Date of Service: 08/28/25 <Rupali Blackman PA-C - Last Filed: 08/28/25 07:47> 08/28/25 <Tho Sanchez MD - Last Filed: 08/28/25 08:11> Interval history: reports having nausea following IV pain meds. Feels bloated. Has not eaten much. Has not been OOB yet. c/o mild diffuse pain. <Rupali Blackman PA-C - Last Filed: 08/28/25 07:47> Physical Exam Vital Signs: Vital Signs: Last Vital Signs Temp 98.4 F 08/28/25 06:00 Pulse 67 08/28/25 06:00 Resp 16 08/28/25 06:00 BP 124/72 08/28/25 06:00 Pulse Ox 92 08/28/25 06:00 O2 Del Method Room Air 08/28/25 06:00 BMI result Body Mass Index 21.6 <Rupali Blackman PA-C - Last Filed: 08/28/25 07:47> Const: General: comfortable, no acute distress and alert <Rupali Blackman PA-C - Last Filed: 08/28/25 07:47> Orientation/consciousness: patient oriented x3 <Rupali Blackman PA-C - Last Filed: 08/28/25 07:47> Resp: Effort & Inspection: normal respiratory effort <Rupali Blackman PA-C - Last Filed: 08/28/25 07:47> GI: Other: dressing clean and intact <Rupali Blackman PA-C - Last Filed: 08/28/25 07:47> Inspection: Yes distended <ROSANNA Liz Last Filed: 08/28/25 07:47> Palpation (GI): Soft to palpation, Tenderness to palpation present (GI) (mild diffuse, incisional) and no guarding <ROSANNA Liz Last Filed: 08/28/25 07:47> Percussion: Yes tympanic to percussion <ROSANNA Liz Last Filed: 08/28/25 07:47> Skin: General skin exam: no rashes or lesions noted <Rupali Blackman PA-C - Last Filed: 08/28/25 07:47> Neuro: General: patient oriented x3 and moves all extremities <Rupali Blackman PA-C - Last Filed: 08/28/25 07:47> Objective Data Active Medications Acetaminophen (Acetaminophen 325 Mg Tablet) 650 mg PO Q6H PRN PRN Reason: Pain, Mild 1-3,fever,headache Last Admin: 08/27/25 23:08 Dose: 650 mg Documented By: ABDELRAHMAN Acyclovir (Acyclovir 200 Mg Capsule) 400 mg PO DAILY [facility] Amlodipine Besylate (Amlodipine Besylate 10 Mg Tablet) 10 mg PO DAILY [facility]; Protocol Aspirin (Aspirin Enteric Coated 81 Mg Tablet.Dr) 81 mg PO DAILY [facility] Atorvastatin Calcium (Atorvastatin Calcium 40 Mg Tablet) 40 mg PO MOWEFR@2100 [facility] Calcium Carbonate (Calcium Carbonate 750 Mg Tab.Chew) 750 mg PO Q4H PRN PRN Reason: Heartburn Last Admin: 08/27/25 20:14 Dose: 750 mg Documented By: ABDELRAHMAN Finasteride (Finasteride 5 Mg Tablet) 2.5 mg PO MOWEFR@0900 [facility] Hydrochlorothiazide (Hydrochlorothiazide 25 Mg Tablet) 25 mg PO DAILY [facility]; Protocol Hydromorphone HCl (Hydromorphone Hcl 0.5 Mg/0.5 Ml Syringe) 0.5 mg IVPUSH Q3H PRN; Protocol PRN Reason: Pain, Severe (Pain Scale 7-10) Last Admin: 08/28/25 01:32 Dose: 0.5 mg Documented By: ABDELRAHMAN Dextrose/Lactated Ringer's (D5lr) 1,000 mls @ 100 mls/hr IVCONT .Q10H JOYCELYN Last Admin: 08/28/25 02:13 Dose: 100 mls/hr Documented By: ABDELRAHMAN Lisinopril (Lisinopril 5 Mg Tablet) 5 mg PO DAILY [facility]; Protocol Magnesium Hydroxide (Milk Of Magnesia 30 Ml Oral.Susp) 30 ml PO DAILY PRN PRN Reason: Constipation Melatonin (Melatonin 3 Mg Tablet) 6 mg PO BEDTIME PRN PRN Reason: Insomnia Metoprolol Succinate (Metoprolol Succinate Er 100 Mg Tab.Er.24h) 100 mg PO DAILY [facility]; Protocol Ondansetron HCl (Ondansetron Hcl 4 Mg/2 Ml Vial) 4 mg IVPUSH Q8H PRN PRN Reason: Nausea and Vomiting Last Admin: 08/28/25 01:48 Dose: 4 mg Documented By: ABDELRAHMAN Oxycodone HCl (Oxycodone Hcl Immed Release 5 Mg Tablet) 5 mg PO Q6H PRN PRN Reason: Pain, Moderate(Pain Scale 4-6) Last Admin: 08/26/25 19:33 Dose: 5 mg Documented By: VICK Sodium Chloride (0.9 % Sodium Chloride Flush 3 Ml Syringe) [address] [facility] Last Admin: 08/28/25 07:39 Dose: Not Given Documented By: MAGDIEL Non-Admin Reason: IV Running <Rupali Blackman PA-C - Last Filed: 08/28/25 07:47> Labs CBC & Chem 7: 08/26/25 18:35 08/26/25 18:35 <Rupali Blackman PA-C - Last Filed: 08/28/25 07:47> Labs: Laboratory Results - last 24 hr 08/26/25 23:24 Blood Type O Positive Antibody Screen POSITIVE Antibody Identification Inconclusive Blood Bank Comment Specimen <Rupali Blackman PA-C - Last Filed: 08/28/25 07:47> Procedures Date of Service Date of Service: 08/28/25 <Rupali Blackman PA-C - Last Filed: 08/28/25 07:47> 08/28/25 <Tho Sanchez MD - Last Filed: 08/28/25 08:11> Progress Note: A&P Assessment and plan (1) S/P left inguinal hernia repair: Status: Acute <Rupali Balckman PA-C - Last Filed: 08/28/25 07:47> Assessment and Plan: POD #1 s/p repair of incarcerated left inguinal hernia repair with mesh. Distended on exam without return of GI function yet. Hemodynamically stable. Encouraged OOB/ambulation to promote GI function, bowel regimen. Oral pain meds. Diet as tolerated. <Rupali Blackman PA-C - Last Filed: 08/28/25 07:47> POD #1 s/p repair of incarcerated left inguinal hernia repair with mesh. Distended on exam without return of GI function yet. Hemodynamically stable. Encouraged OOB/ambulation to promote GI function, bowel regimen. Oral pain meds. Diet as tolerated. Patient seen and examined agree with the above assessment. Wounds are clean and intact. Abdomen is soft and nondistended. Agree with bowel regime, ambulation. <Tho Sanchez MD - Last Filed: 08/28/25 08:11> Time Spent With Patient Time: Total time managing care of this patient today ____ minutes. <Rupali Blackman PA-C - Last Filed: 08/28/25 07:47> Quality Stroke Does the patient have a stroke diagnosis?: No <Rupali Blackman PA-C - Last Filed: 08/28/25 07:47> VTE Prior VTE?: No <Rupali Blackman PA-C - Last Filed: 08/28/25 07:47> VTE Risk Level:: Surgical - moderate <Rupali Blackman PA-C - Last Filed: 08/28/25 07:47> VTE Device Contraindication: N/A - Device Ordered <Rupali Blackman PA-C - Last Filed: 08/28/25 07:47> VTE Drug Contraindication: Treatment Not Indicated <Rupali Blackman PA-C - Last Filed: 08/28/25 07:47>
[2025-08-28 08:06] VITALS: BP 135/85; PULSE 110; RESP 18; TEMP 37; O2SAT 93
--- NOTE | 2025-08-28 08:40 | HO.POSTANES ---
Post Anesthesia Evaluation Post Anesthesia Evaluation Date of Service: 08/28/25 Vital Signs: Vital Signs Temp Pulse Resp BP Pulse Ox O2 Del Method 08/28/25 08:06 98.6 F 110 H 18 135/85 93 Room Air 08/28/25 06:00 98.4 F 67 16 124/72 92 Room Air 08/28/25 00:25 99.1 F 100 18 156/98 H 92 Room Air Anesthesia: General Mental Status: Awake Pain Control: Satisfactory Nausea/Vomiting: None (did have some yesterday) Hydration: Adequate Anesthesia-Related Issues: No Anes. Related Issues
[2025-08-28] MEDS: Metoprolol Succinate ER 100 MG TAB.ER.24H PO (09:06)
[2025-08-28] MEDS: Aspirin Enteric Coated 81 MG TABLET.DR PO (09:07)
--- NOTE | 2025-08-28 16:37 | MHC.CM.PN ---
PER EHR, HERNIA REPAIR WITH MESH COMPLETED YESTERDAY AWAITING RETURN OF GI FUNCTION DCP: HOME NO SERVICES VIA PRIVATE TRANSPORT
[2025-08-28 16:39] VITALS: BP 118/54; PULSE 72; RESP 18; TEMP 36.1; O2SAT 95
[2025-08-28 19:16] VITALS: BP 145/85; PULSE 94; RESP 18; TEMP 36.9; O2SAT 95
[2025-08-28] MEDS: 0.9 % Sodium Chloride Flush 3 ML SYRINGE IVFLUSH (19:46)
--- NOTE | 2025-08-29 01:51 | PC.NURSE ---
At 00:50 pt vomited 175cc of dark green emesis. MD Glover notified. One time dose of IV push Compazine ordered and administered with good effect. At this time pt is asleep, respirations even and unlabored.
[2025-08-29 05:24] VITALS: BP 143/71; PULSE 94; RESP 18; TEMP 36.2; O2SAT 98
--- NOTE | 2025-08-29 07:56 | P.PNGS_ITS ---
Subjective Subjective Date of Service: 08/29/25 Interval history: Unfortunately had multiple episodes of nausea and vomiting. Feels bloated. No significant flatus. Physical Exam 2 Vital Signs: Vital Signs: Last Vital Signs Temp 97.2 F 08/29/25 05:24 Pulse 94 08/29/25 05:24 Resp 18 08/29/25 05:24 BP 143/71 H 08/29/25 05:24 Pulse Ox 98 08/29/25 05:24 O2 Del Method Room Air 08/29/25 05:24 BMI result Body Mass Index 21.6 Const: General: comfortable, no acute distress and alert O rientation/consciousness: patient oriented x3 Resp: Effort & Inspection: normal respiratory effort GI: Other: distended tympanitic dressing clean and intact Palpation (GI): Soft to palpation, Tenderness to palpation present (GI) (mild incisional) and no guarding Percussion: Yes tympanic to percussion Skin: General skin exam: no rashes or lesions noted Neuro: General: patient oriented x3 and moves all extremities Objective Data Active Medications Acetaminophen (Acetaminophen 325 Mg Tablet) 650 mg PO Q6H PRN PRN Reason: Pain, Mild 1-3,fever,headache Last Admin: 08/27/25 23:08 Dose: 650 mg Documented By: ABDELRAHMAN Acyclovir (Acyclovir 200 Mg Capsule) 400 mg PO DAILY [facility] Last Admin: 08/28/25 09:06 Dose: 400 mg Documented By: MAGDIEL Amlodipine Besylate (Amlodipine Besylate 10 Mg Tablet) 10 mg PO DAILY [facility]; Protocol Last Admin: 08/28/25 09:06 Dose: 10 mg Documented By: MAGDIEL Aspirin (Aspirin Enteric Coated 81 Mg Tablet.Dr) 81 mg PO DAILY [facility] Last Admin: 08/28/25 09:07 Dose: 81 mg Documented By: MAGDIEL Atorvastatin Calcium (Atorvastatin Calcium 40 Mg Tablet) 40 mg PO MOWEFR@2100 [facility] Last Admin: 08/28/25 20:39 Dose: Not Given Documented By: ABDELRAHMAN Non-Admin Reason: pt refused, endorsing nausea Calcium Carbonate (Calcium Carbonate 750 Mg Tab.Chew) 750 mg PO Q4H PRN PRN Reason: Heartburn Last Admin: 08/27/25 20:14 Dose: 750 mg Documented By: ABDELRAHMAN Docusate Sodium (Docusate Sodium 100 Mg Capsule) 100 mg PO BID [facility] Last Admin: 08/28/25 20:39 Dose: Not Given Documented By: ABDELRAHMAN Non-Admin Reason: pt refused, endorsing nausea Finasteride (Finasteride 5 Mg Tablet) 2.5 mg PO MOWEFR@0900 [facility] Last Admin: 08/28/25 09:05 Dose: 2.5 mg Documented By: MAGDIEL Hydrochlorothiazide (Hydrochlorothiazide 25 Mg Tablet) 25 mg PO DAILY [facility]; Protocol Last Admin: 08/28/25 09:05 Dose: 25 mg Documented By: MAGDIEL Hydromorphone HCl (Hydromorphone Hcl 0.5 Mg/0.5 Ml Syringe) 0.5 mg IVPUSH Q3H PRN; Protocol PRN Reason: Pain, Severe (Pain Scale 7-10) Last Admin: 08/28/25 01:32 Dose: 0.5 mg Documented By: ABDELRAHMAN Dextrose/Lactated Ringer's (D5lr) 1,000 mls @ 100 mls/hr IVCONT .Q10H [facility] Last Admin: 08/28/25 22:30 Dose: 100 mls/hr Documented By: ABDELRAHMAN Lisinopril (Lisinopril 5 Mg Tablet) 5 mg PO DAILY [facility]; Protocol Last Admin: 08/28/25 09:07 Dose: 5 mg Documented By: MAGDIEL Magnesium Hydroxide (Milk Of Magnesia 30 Ml Oral.Susp) 30 ml PO DAILY PRN PRN Reason: Constipation Melatonin (Melatonin 3 Mg Tablet) 6 mg PO BEDTIME PRN PRN Reason: Insomnia Metoprolol Succinate (Metoprolol Succinate Er 100 Mg Tab.Er.24h) 100 mg PO DAILY [facility]; Protocol Last Admin: 08/28/25 09:06 Dose: 100 mg Documented By: MAGDIEL Ondansetron HCl (Ondansetron Hcl 4 Mg/2 Ml Vial) 4 mg IVPUSH Q8H PRN PRN Reason: Nausea and Vomiting Last Admin: 08/28/25 19:46 Dose: 4 mg Documented By: ABDELRAHMAN Oxycodone HCl (Oxycodone Hcl Immed Release 5 Mg Tablet) 5 mg PO Q6H PRN PRN Reason: Pain, Moderate(Pain Scale 4-6) Last Admin: 08/26/25 19:33 Dose: 5 mg Documented By: VICK Polyethylene Glycol (Polyethylene Glycol 3350 17 Gm Powd.Pack) 17 gm PO DAILY [facility] Last Admin: 08/28/25 09:06 Dose: 17 gm Documented By: MAGDIEL Sodium Chloride (0.9 % Sodium Chloride Flush 3 Ml Syringe) 3 ml IVFLUSH QSHIFT [facility] Last Admin: 08/28/25 19:46 Dose: 3 ml Documented By: CHRISK Labs 08/26/25 18:35 08/26/25 18:35 Labs: Laboratory Results - last 24 hr 08/26/25 08/26/25 08/26/25 23:24 23:24 23:24 Blood Type O Positive Antibody Screen POSITIVE Antibody Identification Inconclusive Antigen Identification C Antigen - POSITIVE E Antigen - NEGATIVE Fya Antigen - NEGATIVE Blood Bank Comment 08/26/25 08/26/25 08/26/25 23:24 23:24 23:24 Blood Type Antibody Screen Antibody Identification Antigen Identification Fyb Antigen - POSITIVE Jka Antigen - NEGATIVE Jkb Antigen - POSITIVE Blood Bank Comment 08/26/25 08/26/25 08/26/25 23:24 23:24 23:24 Blood Type Antibody Screen Antibody Identification Antigen Identification K Antigen - NEGATIVE c Antigen - NEGATIVE e Antigen - POSITIVE Blood Bank Comment 08/26/25 23:24 Blood Type Antibody Screen Antibody Identification Antigen Identification S Antigen - NEGATIVE Blood Bank Comment Specimen Procedures Date of Service Date of Service: 08/29/25 Progress Note: A&P Assessment and plan (1) S/P left inguinal hernia repair: Status: Acute Plan POD #2 s/p repair of recurrent incarcerated left inguinal hernia with mesh. Loop of small bowel within the left inguinal hernia. Unfortunately has developed nausea/vomiting and abdomen remains distended and tympanitic. Needs NGT for decompression until develops more return of GI function. Also has not been OOB- encouraged to ambulate halls today. Patient comfortable with plan. Cont IVF. Time Spent With Patient Time: Total time managing care of this patient today ____ minutes. Quality Stroke Does the patient have a stroke diagnosis?: No VTE Prior VTE?: No VTE Risk Level:: Surgical - moderate VTE Device Contraindication: N/A - Device Ordered VTE Drug Contraindication: Treatment Not Indicated
[2025-08-29] MEDS: Dextrose 5 % and Lactated Ring 1,000 ML 100 ML IVCONT ×2 (08:52→21:47)
--- NOTE | 2025-08-29 11:08 | PC.NURSE ---
NG tube placed, placement confirmed via CXR and Provider Deisy Blackman. Via [employer]connect provider told to advance NG tube an inch. NG tube advanced - patient tolerated well. NG tube placed on low intermittent suction at 11:05.
[2025-08-29 11:13] VITALS: BP 106/58; PULSE 96; RESP 15; TEMP 36.6; O2SAT 97
--- NOTE | 2025-08-29 11:45 | HO.WOUND ---
Wound Consult: Initial 79 yr old male admitted to [facility] on 08/26/25. See progress notes and H&P for detailed history. Wound consult placed for redness to nose. Patient agreeable to assessment and photo documentation. Patient reports chronic area of redness to nose. area is round, slightly raised and blanching. Patient has never seen dermatology for this, recommend outpatient follow up with dermatology. Etiology: Red skin lesion Measurements: 0.3x0.3 Wound Bed: red, raised, blanching intact skin Drainage / Odor: none Beena wound: ? No Induration, Fluctuance or Warmth noted Pain: none Goals of Treatment: ? leave open to air Recommendations: Re-consult wound care Nurse for wound deterioration or wound changes.
[2025-08-29] MEDS: Throat Spray, Medicated 177 ML BOTTLE 1 SPRAY MUCOUS MEM ×2 (15:14→19:16)
[2025-08-29 15:27] VITALS: BP 122/62; PULSE 80; RESP 20; TEMP 36.4; O2SAT 95
--- NOTE | 2025-08-29 16:30 | PC.NURSE ---
Patient up and ambulated in hallway with LOAN SERVICES PROFESSIONAL and walker, LOAN SERVICES PROFESSIONAL reported patient had bowel movement in bathroom.
[2025-08-29 21:22] VITALS: BP 139/77; PULSE 73; RESP 16; TEMP 37; O2SAT 92
[2025-08-29 22:00] VITALS: BP 139/70; PULSE 99; RESP 14; TEMP 36.8; O2SAT 92
[2025-08-30] MEDS: Throat Spray, Medicated 177 ML BOTTLE 1 SPRAY MUCOUS MEM ×2 (05:02→20:05)
[2025-08-30 06:00] VITALS: BP 138/72; PULSE 97; RESP 14; TEMP 36.8; O2SAT 92
[2025-08-30 07:03] VITALS: BP 122/67; PULSE 102; RESP 17; TEMP 36.6; O2SAT 95
[2025-08-30 08:46] LABS: Hematocrit 37.8 % (42.0-52.0); Hemoglobin 12.7 g/dl (14.0-18.0); Imm Gran Abs Auto 0.04 X10*3/uL (0.00-0.03); Imm Gran Pct Auto 0.4 % (0.0-0.4); Lymphocytes Absolute Auto 0.3 X10*3/uL (1.2-4.9); MANUAL DIFF FLAG SCAN; Mean Corpuscular HGB Conc 33.6 g/dl (31.0-36.0); Mean Corpuscular Hemoglobin 33.2 pg (27.0-33.0); Mean Corpuscular Volume 99.0 fL (80.0-98.0); NRBC Abs Auto 0.000 X10*3/uL (0.0-0.012); NRBC Pct Auto 0.0 /100WBC (0.0-0.2); Platelet Count 124 X10*3/uL (160-400); Red Blood Count 3.82 X10*6/uL (4.60-5.80); SCAN SMEAR FLAG 1; White Blood Count 9.3 X10*3/uL (4.8-10.8)
[2025-08-30 09:04] LABS: Anion Gap 10 (12-20); Blood Urea Nitrogen 11 mg/dL (9-16); Calcium 8.6 mg/dL (8.4-10.2); Carbon Dioxide 37 mmol/L (22-29); Chloride 100 mmol/L (96-108); Creatinine Clr Calc Pharmacy 92.2; Estimated Glomerular Filt Rate > 60; Potassium 2.8 mmol/L (3.3-5.1); Sodium 144 mmol/L (135-145)
--- NOTE | 2025-08-30 09:05 | PM.PNGS ---
Subjective Subjective Date of Service: 08/30/25 Interval history: Has had two BMs. Denies nausea, vomiting or further hiccuping/belching since tube placement. Has been OOB and ambulating halls yesterday without difficulty. Physical Exam Vital Signs: Vital Signs: Last Vital Signs Temp 98 F 08/30/25 07:03 Pulse 102 H 08/30/25 07:03 Resp 17 08/30/25 07:03 BP 122/67 08/30/25 07:03 Pulse Ox 95 08/30/25 07:03 O2 Del Method Room Air 08/30/25 07:03 BMI result Body Mass Index 21.6 Const: General: comfortable, no acute distress and alert Orientation/consciousness: patient oriented x3 HEENT: Other: NGT in place, bilious output Resp: Effort & Inspection: normal respiratory effort GI: Other: mildly distended, soft incision clean, steris intact scrotum with some edema and ecchymosis Skin: General skin exam: no rashes or lesions noted Neuro: General: patient oriented x3 and moves all extremities Objective Data Active Medications Acetaminophen (Acetaminophen 325 Mg Tablet) 650 mg PO Q6H PRN On Hold: 08/29/25 20:52 Comment: Pt presently NPO PRN Reason: Pain, Mild 1-3,fever,headache Last Admin: 08/27/25 23:08 Dose: 650 mg Documented By: ABDELRAHMAN Acyclovir (Acyclovir 200 Mg Capsule) 400 mg PO DAILY [facility] Last Admin: 08/29/25 11:30 Dose: Not Given Documented By: CRISTIANO Non-Admin Reason: NPO Amlodipine Besylate (Amlodipine Besylate 10 Mg Tablet) 10 mg PO DAILY [facility]; Protocol Last Admin: 08/29/25 11:30 Dose: Not Given Documented By: CRISTIANO Non-Admin Reason: NPO Aspirin (Aspirin Enteric Coated 81 Mg Tablet.Dr) 81 mg PO DAILY [facility] Last Admin: 08/29/25 11:30 Dose: Not Given Documented By: CRISTIANO Non-Admin Reason: NPO Atorvastatin Calcium (Atorvastatin Calcium 40 Mg Tablet) 40 mg PO MOWEFR@2100 [facility] Last Admin: 08/28/25 20:39 Dose: Not Given Documented By: ABDELRAHMAN Non-Admin Reason: pt refused, endorsing nausea Calcium Carbonate (Calcium Carbonate 750 Mg Tab.Chew) 750 mg PO Q4H PRN PRN Reason: Heartburn Last Admin: 08/27/25 20:14 Dose: 750 mg Documented By: ABDELRAHMAN Docusate Sodium (Docusate Sodium 100 Mg Capsule) 100 mg PO BID [facility] Last Admin: 08/29/25 21:41 Dose: Not Given Documented By: PEÑA Non-Admin Reason: NPO Finasteride (Finasteride 5 Mg Tablet) 2.5 mg PO MOWEFR@0900 [facility] Last Admin: 08/28/25 09:05 Dose: 2.5 mg Documented By: MAGDIEL Hydrochlorothiazide (Hydrochlorothiazide 25 Mg Tablet) 25 mg PO DAILY [facility]; Protocol Last Admin: 08/29/25 11:31 Dose: Not Given Documented By: CRISTIANO Non-Admin Reason: NPO Hydromorphone HCl (Hydromorphone Hcl 0.5 Mg/0.5 Ml Syringe) 0.5 mg IVPUSH Q3H PRN; Protocol PRN Reason: Pain, Severe (Pain Scale 7-10) Last Admin: 08/28/25 01:32 Dose: 0.5 mg Documented By: ABDELRAHMAN Dextrose/Lactated Ringer's (D5lr) 1,000 mls @ 100 mls/hr IVCONT .Q10H [facility] Last Admin: 08/29/25 21:47 Dose: 100 mls/hr Documented By: PEÑA Acetaminophen (Ofirmev) 1,000 mg in 100 mls @ 400 mls/hr IV Q6H PRN PRN Reason: Pain, Mild 1-3,fever,headache Last Infusion: 08/30/25 05:16 Dose: Infused Documented By: PEÑA Potassium Chloride (Potassium Chloride/H20) 10 meq in 100 mls @ 100 mls/hr IV Q1H [facility] Stop: 08/30/25 11:14 Lisinopril (Lisinopril 5 Mg Tablet) 5 mg PO DAILY [facility]; Protocol Last Admin: 08/29/25 11:31 Dose: Not Given Documented By: CRISTIANO Non-Admin Reason: NPO Magnesium Hydroxide (Milk Of Magnesia 30 Ml Oral.Susp) 30 ml PO DAILY PRN PRN Reason: Constipation Melatonin (Melatonin 3 Mg Tablet) 6 mg PO BEDTIME PRN PRN Reason: Insomnia Metoprolol Succinate (Metoprolol Succinate Er 100 Mg Tab.Er.24h) 100 mg PO DAILY [facility]; Protocol Last Admin: 08/29/25 11:31 Dose: Not Given Documented By: CRISTIANO Non-Admin Reason: NPO Multi-Ingred Medicated Throat [place] (Throat [place], Medicated 177 Ml Bottle) 1 spray MUCOUS MEM Q2H PRN PRN Reason: sore throat Last Admin: 08/30/25 05:02 Dose: 1 spray Documented By: PEÑA Ondansetron HCl (Ondansetron Hcl 4 Mg/2 Ml Vial) 4 mg IVPUSH Q8H PRN PRN Reason: Nausea and Vomiting Last Admin: 08/28/25 19:46 Dose: 4 mg Documented By: ABDELRAHMAN Oxycodone HCl (Oxycodone Hcl Immed Release 5 Mg Tablet) 5 mg PO Q6H PRN PRN Reason: Pain, Moderate(Pain Scale 4-6) Last Admin: 08/26/25 19:33 Dose: 5 mg Documented By: VICK Polyethylene Glycol (Polyethylene Glycol 3350 17 Gm Powd.Pack) 17 gm PO DAILY [facility] Last Admin: 08/29/25 11:31 Dose: Not Given Documented By: CRISTIANO Non-Admin Reason: NPO Sodium Chloride (0.9 % Sodium Chloride Flush 3 Ml Syringe) 3 ml IVFLUSH QSHIFT [facility] Last Admin: 08/30/25 00:24 Dose: Not Given Documented By: PEÑA Non-Admin Reason: IV Running Labs 08/30/25 08:21 08/30/25 08:21 Labs: Laboratory Results - last 24 hr 08/30/25 08:21 MCV 99.0 H MCH 33.2 H MCHC 33.6 RDW 13.3 Plt Count 124 L MPV 11.3 Anion Gap 10 L Estim Creat Clear Calc 92.2 Estimated GFR > 60 Fasting Glucose 124 H Calcium 8.6 D Procedures Date of Service Date of Service: 08/30/25 Progress Note: A&P Assessment and plan (1) S/P left inguinal hernia repair: Status: Acute Plan POD #3 s/p repair of recurrent incarcerated left inguinal hernia with mesh. Loop of small bowel within the left inguinal hernia. Required NGT insertion with 1500cc output. Now has some evidence of GI function. Abd is soft, less distended. Incision clean. AM labs reviewed- replace potassium. Will clamp NGT and reassess residual in 4 hrs. Unclamp sooner if develops symptoms. Cont encouraged OOB/ambulation and increasing activity to promote GI function. Patient comfortable with plan. Cont IVF. Time Spent With Patient Time: Total time managing care of this patient today ____ minutes. Quality Stroke Does the patient have a stroke diagnosis?: No VTE Prior VTE?: No VTE Risk Level:: Surgical - moderate VTE Device Contraindication: N/A - Device Ordered VTE Drug Contraindication: Treatment Not Indicated
[2025-08-30] MEDS: Metoprolol Succinate ER 100 MG TAB.ER.24H PO (10:15)
[2025-08-30] MEDS: Aspirin Enteric Coated 81 MG TABLET.DR PO (10:16)
[2025-08-30] MEDS: Potassium Chloride/H20 10 MEQ/100 ML PIGGYBACK 100 MEQ IV ×2 (10:27→12:04)
[2025-08-30] MEDS: KCl 20 mEq in 0.9 % Sodium ChL 20 MEQ/1,000 ML IV.SOLN 100 MEQ IVCONT ×2 (11:03→21:49)
[2025-08-30 14:00] VITALS: BP 136/74; PULSE 103; RESP 16; TEMP 36.6; O2SAT 94
[2025-08-30 15:12] VITALS: BP 127/74; PULSE 108; RESP 18; O2SAT 94
--- NOTE | 2025-08-30 16:05 | MHC.CM.PN ---
PT NOT MEDICALLY READY FOR DC PLAN REMAINS HOME N/S
--- NOTE | 2025-08-30 16:19 | P.CONHOSP_ITS ---
History of Present Illness Data of Consult Service Date: 08/30/25 Primary Care Provider: Tho Cruz, HEAD WORKER- HPI 79-year-old man with history of left inguinal hernia had presented to the ER with complaints of left groin pain. He has been wearing a hernia truss to keep the hernia reduced but has felt that it has been much larger and harder in the left groin area. It was unsuccessful in attempting to reduce the hernia. He was admitted by general surgery team and underwent repair of recurrent incarcerated left inguinal hernia with mesh. Review of Systems 2 Review of Systems: Denies any recent fever chills or decrease in appetite respiratory denies any shortness of breath or cough cardiovascular denied chest pain gastrointestinal hernia repair genitourinary denies any dysuria frequency or hematuria musculoskeletal denies any joint pain or swelling neuropsych denies any weakness or seizures all other systems reviewed are negative [facility] Medical History Pneumonia Statin intolerance HTN (hypertension) AAA (abdominal aortic aneurysm) Vitamin D deficiency Subclinical hyperthyroidism Multinodular thyroid Pancytopenia Leukopenia Multiple myeloma Family History Father CVD (cardiovascular disease) AAA (abdominal aortic aneurysm) Mother Stomach cancer Surgical History (Updated 08/28/25 @ 07:47 by Rupali Blackman PA-C) Hx of hernia repair (07/08/18) History of bone marrow biopsy Hx of tooth extraction History of back surgery Hx of umbilical hernia repair (06/28/13) History of AAA (abdominal aortic aneurysm) repair Social History Household Members: Spouse Housing: House Are you a primary critical care rn to a significant other at home: No Do you presently have visiting nurse or other home services: No Alcohol intake: former Comment: Patient refuses bed alarm Patient Tobacco Use Status: Former Tobacco user Years Smoked: 38 e-Cigarette/Vaping Use: Never Used Second Hand Smoke Exposure: No Special tiesha needs: No Agree to transfusion: Yes Advance Directives Date on File: 01/11/21 service: No Current occupational status: employed and retired Cognitive needs: No Hearing needs: No Vision needs: No Meds Allergies Allergy/AdvReac Type Severity Reaction Status Date / Time No Known Allergies Allergy Verified 08/26/25 18:10 Active Medications: Current Medications Acetaminophen (Acetaminophen 325 Mg Tablet) 650 mg PO Q6H PRN On Hold: 08/29/25 20:52 Comment: Pt presently NPO PRN Reason: Pain, Mild 1-3,fever,headache Last Admin: 08/27/25 23:08 Dose: 650 mg Acyclovir (Acyclovir 200 Mg Capsule) 400 mg PO DAILY [facility] Last Admin: 08/30/25 10:15 Dose: 400 mg Amlodipine Besylate (Amlodipine Besylate 10 Mg Tablet) 10 mg PO DAILY [facility]; Protocol Last Admin: 08/30/25 10:16 Dose: 10 mg Aspirin (Aspirin Enteric Coated 81 Mg Tablet.Dr) 81 mg PO DAILY [facility] Last Admin: 08/30/25 10:16 Dose: 81 mg Atorvastatin Calcium (Atorvastatin Calcium 40 Mg Tablet) 40 mg PO MOWEFR@2100 [facility] Last Admin: 08/28/25 20:39 Dose: Not Given Calcium Carbonate (Calcium Carbonate 750 Mg Tab.Chew) 750 mg PO Q4H PRN PRN Reason: Heartburn Last Admin: 08/27/25 20:14 Dose: 750 mg Docusate Sodium (Docusate Sodium 100 Mg Capsule) 100 mg PO BID [facility] Last Admin: 08/30/25 10:16 Dose: 100 mg Finasteride (Finasteride 5 Mg Tablet) 2.5 mg PO MOWEFR@0900 [facility] Last Admin: 08/30/25 10:17 Dose: 2.5 mg Hydrochlorothiazide (Hydrochlorothiazide 25 Mg Tablet) 25 mg PO DAILY [facility]; Protocol Last Admin: 08/30/25 10:16 Dose: 25 mg Hydromorphone HCl (Hydromorphone Hcl 0.5 Mg/0.5 Ml Syringe) 0.5 mg IVPUSH Q3H PRN; Protocol PRN Reason: Pain, Severe (Pain Scale 7-10) Last Admin: 08/28/25 01:32 Dose: 0.5 mg Acetaminophen (Ofirmev) 1,000 mg in 100 mls @ 400 mls/hr IV Q6H PRN PRN Reason: Pain, Mild 1-3,fever,headache Last Infusion: 08/30/25 05:16 Dose: Infused Potassium Chloride/Sodium Chloride (Kcl 20 Meq In 0.9 % Sodium Chl) 20 meq in 1,000 mls @ 100 mls/hr IVCONT .Q10H [facility] Last Admin: 08/30/25 11:03 Dose: 100 mls/hr Lisinopril (Lisinopril 5 Mg Tablet) 5 mg PO DAILY [facility]; Protocol Last Admin: 08/30/25 10:16 Dose: 5 mg Magnesium Hydroxide (Milk Of Magnesia 30 Ml Oral.Susp) 30 ml PO DAILY PRN PRN Reason: Constipation Melatonin (Melatonin 3 Mg Tablet) 6 mg PO BEDTIME PRN PRN Reason: Insomnia Metoprolol Succinate (Metoprolol Succinate Er 100 Mg Tab.Er.24h) 100 mg PO DAILY [facility]; Protocol Last Admin: 08/30/25 10:15 Dose: 100 mg Multi-Ingred Medicated Throat [place] (Throat [place], Medicated 177 Ml Bottle) 1 spray MUCOUS MEM Q2H PRN PRN Reason: sore throat Last Admin: 08/30/25 05:02 Dose: 1 spray Ondansetron HCl (Ondansetron Hcl 4 Mg/2 Ml Vial) 4 mg IVPUSH Q8H PRN PRN Reason: Nausea and Vomiting Last Admin: 08/28/25 19:46 Dose: 4 mg Oxycodone HCl (Oxycodone Hcl Immed Release 5 Mg Tablet) 5 mg PO Q6H PRN PRN Reason: Pain, Moderate(Pain Scale 4-6) Last Admin: 08/26/25 19:33 Dose: 5 mg Polyethylene Glycol (Polyethylene Glycol 3350 17 Gm Powd.Pack) 17 gm PO DAILY [facility] Last Admin: 08/30/25 10:31 Dose: Not Given Sodium Chloride (0.9 % Sodium Chloride Flush 3 Ml Syringe) 3 ml IVFLUSH QSHIFT [facility] Last Admin: 08/30/25 10:02 Dose: Not Given Home Medications ?Medication ?Instructions ?Recorded ?Confirmed ?Last Taken ?Type cholecalciferol (vit D3) 137.5 mcg 1 tab PO DAILY 05/0908/27/25 05/23/23 09:00 History (5,500 unit)-vit K2 200 mcg tablet omega-3s 300 od-uwn-yea-other 1 cap PO BEDTIME 3 08/27/25 05/22/23 History [id number] oil 1,000 mg capsule ([place]-3 Fish Oil) aspirin 81 mg capsule 81 mg PO DAILY Hypertension 04/29/24 08/27/25 Unknown History atorvastatin 40 mg tablet 40 mg PO MOWEFR@2100 5 08/27/25 Unknown History finasteride 5 mg tablet 2.5 mg PO MOWEFR@0900 08/27/25 Unknown History metoprolol succinate 100 mg 100 mg PO DAILY 08/27/25 1 08/26/25 History tablet,extended release 24 hr Physical Exam 2 Vital Signs and Narrative: Vital Signs: Last Vital Signs Temp 98 F 08/30/25 14:00 Pulse 108 H 08/30/25 15:12 Resp 18 08/30/25 15:12 BP 127/74 08/30/25 15:12 Pulse Ox 94 08/30/25 15:12 O2 Del Method Room Air 08/30/25 15:12 BMI result Body Mass Index 21.6 Appearing in no acute distress head is normocephalic atraumatic eyes pupils are PERRLA sclera is anicteric mouth throat mucous membranes are intact and moist neck is supple no lymphadenopathy, no JVD noted lung sounds are clear to auscultation heart regular rate rhythm, clear S1, S2 positive bowel sounds, NGT neuro patient is alert x3, no focal deficits Results Labs 08/30/25 08:21 08/30/25 08:21 Labs: Laboratory Results - last 24 hr 08/30/25 08:21 MCV 99.0 H MCH 33.2 H MCHC 33.6 RDW 13.3 Plt Count 124 L MPV 11.3 Immature Gran % (Auto) 0.4 Neut % (Auto) 90.4 H Lymph % (Auto) 2.9 L [place] % (Auto) 5.7 Eos % (Auto) 0.5 Baso % (Auto) 0.1 Lymph # (Auto) 0.3 L [place] # (Auto) 0.5 Eos # (Auto) 0.1 Baso # (Auto) 0.0 Abs Immat Gran (auto) 0.04 H Absolute Neuts (auto) 8.4 H Absolute Nucleated RBC 0.000 Nucleated RBC % (auto) 0.0 Smear Tech's Comments VERIFIED Anion Gap 10 L Estim Creat Clear Calc 92.2 Estimated GFR > 60 Fasting Glucose 124 H Calcium 8.6 D Assessment and Plan (1) HTN (hypertension): Status: Acute Plan 79-year-old man admitted by general surgery and is status post incarcerated hernia repair sign Left incarcerated inguinal hernia repair with mesh Management as per surgical team NG tube placed on 08/29/2025 due to, nausea vomiting and bloating Pain management NG-tube. Okay to hold all oral medications at this time as patient is NPO with NG tube in place. May use hydralazine if systolic blood pressures reach 180. Otherwise blood pressures are stable at this time and okay to hold. Hypertension. Blood pressures are stable BPH. On finasteride. Hold due to NPO CAD. On aspirin and statin. Hold due to NPO Medical consultation complete. Will sign off
--- NOTE | 2025-08-30 19:13 | PC.NURSE ---
NG tube clamped at 8:45 per MD. After a few hours pt c/o abd pain and feelings of bloating and sharp pain. NG tube put back onto int suction per MD and put out 250. End of shift at 1900 total output 400.
[2025-08-30 20:00] VITALS: BP 144/87; PULSE 109; RESP 16; TEMP 36.8; O2SAT 94
[2025-08-30] MEDS: 0.9 % Sodium Chloride Flush 3 ML SYRINGE IVFLUSH (21:54)
--- NOTE | 2025-08-30 22:24 | PC.NURSE ---
Changed canister for NG tube output, total container volume 1400mL. From the start of my shift at 1900 to 0 total output of 400. The canister is at 0mL as of 2224 as a new one was placed.
[2025-08-31 03:18] VITALS: BP 134/85; PULSE 96; RESP 14; TEMP 36; O2SAT 94
[2025-08-31] MEDS: KCl 20 mEq in 0.9 % Sodium ChL 20 MEQ/1,000 ML IV.SOLN 100 MEQ IVCONT ×2 (07:09→21:28)
[2025-08-31 08:10] LABS: Anion Gap 17 (12-20); Blood Urea Nitrogen 12 mg/dL (9-16); Calcium 8.1 mg/dL (8.4-10.2); Carbon Dioxide 28 mmol/L (22-29); Chloride 105 mmol/L (96-108); Creatinine Clr Calc Pharmacy 100.3; Estimated Glomerular Filt Rate > 60; Magnesium 1.6 mg/dL (1.6-2.6); Potassium 2.7 mmol/L (3.3-5.1); Sodium 147 mmol/L (135-145)
[2025-08-31 08:15] VITALS: BP 149/72; PULSE 77; RESP 16; TEMP 36.9; O2SAT 95
--- NOTE | 2025-08-31 08:29 | PM.PNGS ---
Subjective Subjective Date of Service: 08/31/25 Interval history: Feels ok. Currently denies abd pain but occasionally will get some cramping. Had another BM yesterday but denies significant flatus. No further nausea, vomiting or hiccuping/belching. Physical Exam Vital Signs: Vital Signs: Last Vital Signs Temp 98.5 F 08/31/25 08:15 Pulse 77 08/31/25 08:15 Resp 16 08/31/25 08:15 BP 149/72 H 08/31/25 08:15 Pulse Ox 95 08/31/25 08:15 O2 Del Method Room Air 08/31/25 08:15 BMI result Body Mass Index 21.6 Const: General: comfortable, no acute distress and alert Orientation/consciousness: patient oriented x3 Resp: Effort & Inspection: normal respiratory effort GI: Other: remains mildly distended and tympanitic but soft mild upper abdominal tenderness incision clean Skin: General skin exam: no rashes or lesions noted Neuro: General: patient oriented x3 and moves all extremities Objective Data Active Medications Acetaminophen (Acetaminophen 325 Mg Tablet) 650 mg PO Q6H PRN On Hold: 08/29/25 20:52 Comment: Pt presently NPO PRN Reason: Pain, Mild 1-3,fever,headache Last Admin: 08/27/25 23:08 Dose: 650 mg Documented By: ABDELRAHMAN Acyclovir (Acyclovir 200 Mg Capsule) 400 mg PO DAILY [facility] On Hold: 08/30/25 16:25 Last Admin: 08/30/25 10:15 Dose: 400 mg Documented By: MELITA Amlodipine Besylate (Amlodipine Besylate 10 Mg Tablet) 10 mg PO DAILY [facility]; Protocol On Hold: 08/30/25 16:26 Last Admin: 08/30/25 10:16 Dose: 10 mg Documented By: MELITA Aspirin (Aspirin Enteric Coated 81 Mg Tablet.Dr) 81 mg PO DAILY [facility] On Hold: 08/30/25 16:26 Last Admin: 08/30/25 10:16 Dose: 81 mg Documented By: MELITA Atorvastatin Calcium (Atorvastatin Calcium 40 Mg Tablet) 40 mg PO MOWEFR@2100 [facility] On Hold: 08/30/25 16:26 Last Admin: 08/28/25 20:39 Dose: Not Given Documented By: ABDELRAHMAN Non-Admin Reason: pt refused, endorsing nausea Calcium Carbonate (Calcium Carbonate 750 Mg Tab.Chew) 750 mg PO Q4H PRN On Hold: 08/30/25 16:26 PRN Reason: Heartburn Last Admin: 08/27/25 20:14 Dose: 750 mg Documented By: ABDELRAHMAN Docusate Sodium (Docusate Sodium 100 Mg Capsule) 100 mg PO BID [facility] On Hold: 08/30/25 16:26 Last Admin: 08/30/25 10:16 Dose: 100 mg Documented By: MELITA Finasteride (Finasteride 5 Mg Tablet) 2.5 mg PO MOWEFR@0900 [facility] On Hold: 08/30/25 16:28 Last Admin: 08/30/25 10:17 Dose: 2.5 mg Documented By: MELITA Hydralazine HCl (Hydralazine Hcl 20 Mg/Ml Vial) 5 mg IVPUSH Q6H PRN; Protocol PRN Reason: SBP>180 Hydrochlorothiazide (Hydrochlorothiazide 25 Mg Tablet) 25 mg PO DAILY [facility]; Protocol On Hold: 08/30/25 16:26 Last Admin: 08/30/25 10:16 Dose: 25 mg Documented By: MELITA Hydromorphone HCl (Hydromorphone Hcl 0.5 Mg/0.5 Ml Syringe) 0.5 mg IVPUSH Q3H PRN; Protocol PRN Reason: Pain, Severe (Pain Scale 7-10) Last Admin: 08/28/25 01:32 Dose: 0.5 mg Documented By: ABDELRAHMAN Acetaminophen (Ofirmev) 1,000 mg in 100 mls @ 400 mls/hr IV Q6H PRN PRN Reason: Pain, Mild 1-3,fever,headache Last Infusion: 08/30/25 05:16 Dose: Infused Documented By: PEÑA Potassium Chloride/Sodium Chloride (Kcl 20 Meq In 0.9 % Sodium Chl) 20 meq in 1,000 mls @ 100 mls/hr IVCONT .Q10H [facility] Last Admin: 08/31/25 07:09 Dose: 100 mls/hr Documented By: CHLOE Lisinopril (Lisinopril 5 Mg Tablet) 5 mg PO DAILY [facility]; Protocol On Hold: 08/30/25 16:26 Last Admin: 08/30/25 10:16 Dose: 5 mg Documented By: MELITA Magnesium Hydroxide (Milk Of Magnesia 30 Ml Oral.Susp) 30 ml PO DAILY PRN PRN Reason: Constipation Melatonin (Melatonin 3 Mg Tablet) 6 mg PO BEDTIME PRN PRN Reason: Insomnia Metoprolol Succinate (Metoprolol Succinate Er 100 Mg Tab.Er.24h) 100 mg PO DAILY [facility]; Protocol On Hold: 08/30/25 16:26 Last Admin: 08/30/25 10:15 Dose: 100 mg Documented By: MELITA Metoprolol Tartrate (Metoprolol Tartrate 5 Mg/5 Ml Vial) 2.5 mg IVPUSH Q6H PRN; Protocol PRN Reason: HR greater than 110 Multi-Ingred Medicated Throat [place] (Throat [place], Medicated 177 Ml Bottle) 1 spray MUCOUS MEM Q2H PRN PRN Reason: sore throat Last Admin: 08/30/25 20:05 Dose: 1 spray Documented By: WILSON Ondansetron HCl (Ondansetron Hcl 4 Mg/2 Ml Vial) 4 mg IVPUSH Q8H PRN PRN Reason: Nausea and Vomiting Last Admin: 08/28/25 19:46 Dose: 4 mg Documented By: ABDELRAHMAN Oxycodone HCl (Oxycodone Hcl Immed Release 5 Mg Tablet) 5 mg PO Q6H PRN PRN Reason: Pain, Moderate(Pain Scale 4-6) Last Admin: 08/26/25 19:33 Dose: 5 mg Documented By: VICK Polyethylene Glycol (Polyethylene Glycol 3350 17 Gm Powd.Pack) 17 gm PO DAILY [facility] On Hold: 08/30/25 16:27 Last Admin: 08/30/25 10:31 Dose: Not Given Documented By: MELITA Non-Admin Reason: Physician Held Med Sodium Chloride (0.9 % Sodium Chloride Flush 3 Ml Syringe) 3 ml IVFLUSH QSHIFT [facility] Last Admin: 08/31/25 07:09 Dose: Not Given Documented By: CHLOE Non-Admin Reason: IV Running Labs 08/30/25 08:21 08/31/25 06:00 Labs: Laboratory Results - last 24 hr 08/30/25 08/31/25 08:21 06:00 MCV 99.0 H MCH 33.2 H MCHC 33.6 RDW 13.3 Plt Count 124 L MPV 11.3 Immature Gran % (Auto) 0.4 Neut % (Auto) 90.4 H Lymph % (Auto) 2.9 L [place] % (Auto) 5.7 Eos % (Auto) 0.5 Baso % (Auto) 0.1 Lymph # (Auto) 0.3 L [place] # (Auto) 0.5 Eos # (Auto) 0.1 Baso # (Auto) 0.0 Abs Immat Gran (auto) 0.04 H Absolute Neuts (auto) 8.4 H Absolute Nucleated RBC 0.000 Nucleated RBC % (auto) 0.0 Smear Tech's Comments VERIFIED Anion Gap 10 L 17 Estim Creat Clear Calc 92.2 100.3 Estimated GFR > 60 > 60 Fasting Glucose 124 H 108 H Calcium 8.6 D 8.1 L Magnesium 1.6 Procedures Date of Service Date of Service: 08/31/25 Progress Note: A&P Assessment and plan (1) S/P left inguinal hernia repair: Status: Acute Plan He remains distended but he does have some GI function, NGT output not significant overnight. Will trial clamping NGT again today and will reassess in 4 hrs to check residual. Unclamp sooner if redevelops symptoms. Hypokalemia on labs, replace lytes. If unable to remove NGT today, may need to initiate PPN. Patient comfortable with plan. Continue increasing activity. Time Spent With Patient Time: Total time managing care of this patient today ____ minutes. Quality Stroke Does the patient have a stroke diagnosis?: No VTE Prior VTE?: No VTE Risk Level:: Surgical - moderate VTE Device Contraindication: N/A - Device Ordered VTE Drug Contraindication: Treatment Not Indicated
[2025-08-31] MEDS: Throat Spray, Medicated 177 ML BOTTLE 1 SPRAY MUCOUS MEM (08:54)
[2025-08-31] MEDS: Potassium Chloride/H20 10 MEQ/100 ML PIGGYBACK 100 MEQ IV ×2 (08:54→09:47)
[2025-08-31 14:00] VITALS: BP 148/77; PULSE 86; RESP 16; TEMP 37.2; O2SAT 96
--- NOTE | 2025-08-31 14:15 | PM.EVENT ---
Event Note Date of Service: 08/31/25 Event Note: NGT with 20cc residual after 4 hours. No abdominal pain, nausea, distention. Passing flatus. NGT therefore removed. Ok to start clear liquids. Time Spent With Patient Time: Total time managing care of this patient today ____ minutes.
[2025-08-31 15:13] VITALS: BP 125/76; PULSE 84; RESP 18; TEMP 36.7; O2SAT 94
[2025-08-31 18:54] VITALS: BP 134/74; PULSE 81; RESP 18; TEMP 36.9; O2SAT 94
--- NOTE | 2025-09-01 | ECG_ITS ---
Test Reason : ?a fib Blood Pressure : */* mmHG Vent. Rate : 73 BPM Atrial Rate : 73 BPM P-R Int : 168 ms QRS Dur : 100 ms QT Int : 408 ms P-R-T Axes : 56 -12 0 degrees QTcB Int : 449 ms Sinus rhythm with Premature supraventricular complexes Otherwise normal ECG When compared with ECG of 05-Jun-2025 09:55, T wave inversion now evident in Inferior leads Referred By: Rupali Blackman Electronically Signed By: LAUREN BROWNING MD
[2025-09-01 04:05] VITALS: BP 158/78; PULSE 72; RESP 18; TEMP 37.2; O2SAT 95
[2025-09-01] MEDS: KCl 20 mEq in 0.9 % Sodium ChL 20 MEQ/1,000 ML IV.SOLN 100 MEQ IVCONT (07:42)
[2025-09-01] MEDS: 0.9 % Sodium Chloride Flush 3 ML SYRINGE IVFLUSH (07:44)
[2025-09-01 08:00] VITALS: BP 148/86; PULSE 79; RESP 16; TEMP 36.5; O2SAT 96
[2025-09-01 08:41] LABS: Anion Gap 11 (12-20); Blood Urea Nitrogen 15 mg/dL (9-16); Calcium 7.8 mg/dL (8.4-10.2); Carbon Dioxide 27 mmol/L (22-29); Chloride 111 mmol/L (96-108); Creatinine Clr Calc Pharmacy 107.8; Estimated Glomerular Filt Rate > 60; Potassium 3.0 mmol/L (3.3-5.1); Sodium 146 mmol/L (135-145)
--- NOTE | 2025-09-01 08:41 | PM.PNGS ---
Subjective Subjective Date of Service: 09/01/25 Interval history: Feels ok. Tolerated clear liquids without nausea/vomiting. Continues to pass flatus. Was not able to ambulate halls yesterday due to staffing apparently. Physical Exam Vital Signs: Vital Signs: Last Vital Signs Temp 97.7 F 09/01/25 08:00 Pulse 79 09/01/25 08:00 Resp 16 09/01/25 08:00 BP 148/86 H 09/01/25 08:00 Pulse Ox 96 09/01/25 08:00 O2 Del Method Room Air 09/01/25 08:00 BMI result Body Mass Index 21.6 Const: General: comfortable, no acute distress and alert Orientation/consciousness: patient oriented x3 Resp: Effort & Inspection: normal respiratory effort Cardio: Other: irregularly irregular, normal rate GI: Other: mildly distended, soft incision clean Palpation (GI): no guarding Skin: General skin exam: no rashes or lesions noted Neuro: General: patient oriented x3 and moves all extremities Objective Data Active Medications Acetaminophen (Acetaminophen 325 Mg Tablet) 650 mg PO Q6H PRN On Hold: 08/29/25 20:52 Comment: Pt presently NPO PRN Reason: Pain, Mild 1-3,fever,headache Last Admin: 08/27/25 23:08 Dose: 650 mg Documented By: ABDELRAHMAN Acyclovir (Acyclovir 200 Mg Capsule) 400 mg PO DAILY [facility] On Hold: 08/30/25 16:25 Last Admin: 08/30/25 10:15 Dose: 400 mg Documented By: MELITA Amlodipine Besylate (Amlodipine Besylate 10 Mg Tablet) 10 mg PO DAILY [facility]; Protocol On Hold: 08/30/25 16:26 Last Admin: 08/30/25 10:16 Dose: 10 mg Documented By: MELITA Aspirin (Aspirin Enteric Coated 81 Mg Tablet.Dr) 81 mg PO DAILY [facility] On Hold: 08/30/25 16:26 Last Admin: 08/30/25 10:16 Dose: 81 mg Documented By: MELITA Atorvastatin Calcium (Atorvastatin Calcium 40 Mg Tablet) 40 mg PO MOWEFR@2100 [facility] On Hold: 08/30/25 16:26 Last Admin: 08/28/25 20:39 Dose: Not Given Documented By: ABDELRAHMAN Non-Admin Reason: pt refused, endorsing nausea Calcium Carbonate (Calcium Carbonate 750 Mg Tab.Chew) 750 mg PO Q4H PRN On Hold: 08/30/25 16:26 PRN Reason: Heartburn Last Admin: 08/27/25 20:14 Dose: 750 mg Documented By: ABDELRAHMAN Docusate Sodium (Docusate Sodium 100 Mg Capsule) 100 mg PO BID [facility] On Hold: 08/30/25 16:26 Last Admin: 08/30/25 10:16 Dose: 100 mg Documented By: MELITA Finasteride (Finasteride 5 Mg Tablet) 2.5 mg PO MOWEFR@0900 [facility] Last Admin: 08/30/25 10:17 Dose: 2.5 mg Documented By: MELITA Hydralazine HCl (Hydralazine Hcl 20 Mg/Ml Vial) 5 mg IVPUSH Q6H PRN; Protocol PRN Reason: SBP>180 Hydrochlorothiazide (Hydrochlorothiazide 25 Mg Tablet) 25 mg PO DAILY [facility]; Protocol On Hold: 08/30/25 16:26 Last Admin: 08/30/25 10:16 Dose: 25 mg Documented By: MELITA Hydromorphone HCl (Hydromorphone Hcl 0.5 Mg/0.5 Ml Syringe) 0.5 mg IVPUSH Q3H PRN; Protocol PRN Reason: Pain, Severe (Pain Scale 7-10) Last Admin: 08/28/25 01:32 Dose: 0.5 mg Documented By: ABDELRAHMAN Acetaminophen (Ofirmev) 1,000 mg in 100 mls @ 400 mls/hr IV Q6H PRN PRN Reason: Pain, Mild 1-3,fever,headache Last Infusion: 08/30/25 05:16 Dose: Infused Documented By: PEÑA Potassium Chloride/Sodium Chloride (Kcl 20 Meq In 0.9 % Sodium Chl) 20 meq in 1,000 mls @ 100 mls/hr IVCONT .Q10H [facility] Last Admin: 09/01/25 07:42 Dose: 100 mls/hr Documented By: COLBURAaliyah Lisinopril (Lisinopril 5 Mg Tablet) 5 mg PO DAILY [facility]; Protocol Last Admin: 08/30/25 10:16 Dose: 5 mg Documented By: MELITA Magnesium Hydroxide (Milk Of Magnesia 30 Ml Oral.Susp) 30 ml PO DAILY PRN PRN Reason: Constipation Melatonin (Melatonin 3 Mg Tablet) 6 mg PO BEDTIME PRN PRN Reason: Insomnia Metoprolol Succinate (Metoprolol Succinate Er 100 Mg Tab.Er.24h) 100 mg PO DAILY [facility]; Protocol Last Admin: 08/30/25 10:15 Dose: 100 mg Documented By: MELITA Metoprolol Tartrate (Metoprolol Tartrate 5 Mg/5 Ml Vial) 2.5 mg IVPUSH Q6H PRN; Protocol PRN Reason: HR greater than 110 Multi-Ingred Medicated Throat [place] (Throat [place], Medicated 177 Ml Bottle) 1 spray MUCOUS MEM Q2H PRN PRN Reason: sore throat Last Admin: 08/31/25 08:54 Dose: 1 spray Documented By: CHLOE Ondansetron HCl (Ondansetron Hcl 4 Mg/2 Ml Vial) 4 mg IVPUSH Q8H PRN PRN Reason: Nausea and Vomiting Last Admin: 08/28/25 19:46 Dose: 4 mg Documented By: ABDELRAHMAN Oxycodone HCl (Oxycodone Hcl Immed Release 5 Mg Tablet) 5 mg PO Q6H PRN PRN Reason: Pain, Moderate(Pain Scale 4-6) Last Admin: 08/26/25 19:33 Dose: 5 mg Documented By: VICK Polyethylene Glycol (Polyethylene Glycol 3350 17 Gm Powd.Pack) 17 gm PO DAILY [facility] On Hold: 08/30/25 16:27 Last Admin: 08/30/25 10:31 Dose: Not Given Documented By: MELITA Non-Admin Reason: Physician Held Med Sodium Chloride (0.9 % Sodium Chloride Flush 3 Ml Syringe) 3 ml IVFLUSH QSHIFT [facility] Last Admin: 09/01/25 07:44 Dose: 3 ml Documented By: COLBURK Labs 08/30/25 08:21 08/31/25 06:00 Procedures Date of Service Date of Service: 09/01/25 Progress Note: A&P Assessment and plan (1) S/P left inguinal hernia repair: Status: Acute Plan Will advance to solid diet. Await AM lytes- is on oral potassium at home. Also noted to have irregularly irregular HR on exam this AM. He reports he has a history of a fib and sees cardiology for this but I do not see any note of this in cardiology notes. His rate is regular and he is clinically well appearing. Will obtain EKG. Time Spent With Patient Time: Total time managing care of this patient today ____ minutes. Quality Stroke Does the patient have a stroke diagnosis?: No VTE Prior VTE?: No VTE Risk Level:: Surgical - moderate VTE Device Contraindication: N/A - Device Ordered VTE Drug Contraindication: Treatment Not Indicated
[2025-09-01] MEDS: Potassium Chloride Packet 20 MEQ PACKET 40 MEQ PO (09:23)
[2025-09-01] MEDS: Metoprolol Succinate ER 100 MG TAB.ER.24H PO (09:24)
[2025-09-01] MEDS: Throat Spray, Medicated 177 ML BOTTLE 1 SPRAY MUCOUS MEM (09:28)
[2025-09-01 14:00] VITALS: BP 124/73; PULSE 81; RESP 18; TEMP 36.6; O2SAT 95
--- NOTE | 2025-09-01 14:15 | MHC.CM.PN ---
pt dcd home self care
--- NOTE | 2025-09-01 16:26 | PM.DS ---
DS: Providers Provider Date of Service: 09/01/25 Date of admission: 08/26/25 19:10 Date of discharge: 09/01/25 Primary care physician: STEVE Hoffman Attending physician on admission: Tho Sanchez Consults: 08/29/25 11:48 Consult to Wound Care Routine Reason for consultation: redness to nose 08/30/25 07:30 Consult to Hospitalist Routine Comment: Consulting Provider: [facility] Reason For Exam: SBO, inc hernia, med management after NGT Attending physician on discharge: Tho Sanchez DS: Diagnosis Discharge Diagnosis (1) S/P left inguinal hernia repair: Status: Acute DS: Summary Hospital Course Hospital Course: HPI AT ADMISSION: 79-year-old male patient with a previous history of left inguinal hernia x2 returning now with complaints of pain in the left groin. He had been feeling a small marble defect for several years and was able to easily reduce this with slight pressure and gentle massage. He has been wearing a hernia truss to help keep the hernia reduced and this seemed to be working until today when he began to feel a larger and harder lump in the left groin. He tried to reduce the hernia as before however was unsuccessful. He subsequently presented to the emergency department for further evaluation. In the ED he was noted to have a lump in the left groin which is non reducible. There are no overlying skin changes noted. He denies nausea, vomiting, diarrhea or constipation. HOSPITAL COURSE: He was admitted to the surgical service for further management of this incarcerated recurrent left inguinal hernia. He was started on IVF, PRN analgesics, kept NPO. He had continued pain of the left groin with an irreducible hernia and tenderness and it was therefore recommended to proceed with repair of the left inguinal hernia that day. He was added onto the OR schedule. On 08/27/25, repair of recurrent incarcerated left inguinal hernia with mesh was performed by Dr. Sanchez without immediate complications. He was found to have a loop of small bowel within the left inguinal hernia which was noted to be viable and reduced into the abdominal cavity. He tolerated the procedure well. He had a slow recovery course. He had persistent nausea and belching associated with abdominal distention and pain without any evidence of GI function. NGT was therefore inserted with evacuation of large amount of bilious drainage. This was kept in place for two days as he had continued high output and recurrent symptoms when the NGT was trial clamped. His GI function began to return and he was passing flatus and having bowel movements. His activity was increased. His NGT was removed and his diet was slowly advanced to clear liquids and then solids. On the day of discharge, he felt well and was tolerating a solid diet without nausea or vomiting, had good pain control and was ambulating without difficulty. He was hemodynamically stable. His abdomen was benign with clean left inguinal incision. He felt ready for discharge. He was discharged to home on 09/01/25 in stable condition. He is to follow up in the office in 1 week. Status at Discharge Functional status at discharge: independent ambulation Overall status at discharge: patient is progressing back to baseline Time Attestation Discharge Coordination Time (in mins): 40 Quality: Safe Use of Opioids Does Pt have an Active Cancer Diagnosis on the Problem List?: Yes Opioid Measure Date for [facility] Report: 08/05/25 Opioid Measure Time for [facility] Report: 09:34 Quality: Stroke Does the patient have a stroke diagnosis?: No Physical Exam Vital Signs: Vital Signs: Last Vital Signs Temp 97.8 F 09/01/25 14:00 Pulse 81 09/01/25 14:00 Resp 18 09/01/25 14:00 BP 124/73 09/01/25 14:00 Pulse Ox 95 09/01/25 14:00 O2 Del Method Room Air 09/01/25 14:00 BMI result Body Mass Index 21.6 Const: General: comfortable, no acute distress and alert Orientation/consciousness: patient oriented x3 Resp: Effort & Inspection: normal respiratory effort GI: Other: soft left inguinal hernia repair site clean appearing, mild ecchymosis Palpation (GI): nontender and no guarding Skin: General skin exam: no rashes or lesions noted Neuro: General: patient oriented x3 and moves all extremities Discharge Plan Discharge Anticipated Discharge Date/Time: 09/01/25 11:18 Patient Disposition: Home, Self-Care Discharge Diagnosis: s/p repair of incarcerated left inguinal hernia Referrals: Tho Cruz FNP-BC [Primary Care Provider, Internal Medicine] - 1 Week Tho Snachez MD [Physician, General Surgery] - 1 Week Discharge Medications: Continued lisinopril 5 mg tablet 5 mg PO DAILY Qty: 90 1RF hydrochlorothiazide 25 mg tablet 25 mg PO DAILY Qty: 90 1RF sulfamethoxazole-trimethoprim [Bactrim DS] 800-160 mg Tablet 1 tab PO DAILY Qty: 90 6RF amlodipine [Norvasc] 10 mg tablet 10 mg PO DAILY Qty: 90 1RF aspirin 81 mg Capsule 81 mg PO DAILY MDD 81 acyclovir 400 mg Tablet 400 mg PO DAILY Qty: 90 3RF Coats-3 Fish Oil 300-1,000 mg Capsule 1 cap PO BEDTIME vitamin D3-vitamin K2 137.5-200 mcg Tablet 1 tab PO DAILY metoprolol succinate 100 mg tablet extended release 24 hr 100 mg PO DAILY Protocol: Hold for HR <: HOLD for HR < : 60 finasteride 5 mg tablet 2.5 mg PO MOWEFR@0900 atorvastatin 40 mg tablet 40 mg PO MOWEFR@2100 Discharge Orders: Discharge Order (Routine); Ordered 09/01/25 Ordered By: Tho Sanchez Diet: Advance to usual diet Activity on Discharge: No heavy lifting Stand Alone Forms: Patient Portal Discharge page Print Language: Estonian Activity Restrictions/Additional Instructions: If the incision area is tender, you may apply an ice pack for short intervals (No more than 20 minutes on, followed by at least 20 minutes off). Do not apply heat. Do not use creams, lotions, or topical antibiotics. Ok to shower. Remove clear dressings 3 days following your procedure. You have steri strips (small white strips) covering your incision- these will fall off ~1 week. No heavy lifting (>10lbs) or strenuous activity! Take Tylenol Extra-strength 1-2 tabs every 6 hours for the first day, then as needed. Oxycodone every 6-8 hours as needed for pain. Colace 100 mg every day as needed for constipation. Follow up in office with Dr. Sanchez in 1 week. ([phone]) Call Your Doctor If: -Your temperature exceeds 101.5? F -You experience excessive pain or swelling -You have an unexpected reaction to medication -You have excessive bleeding -You experience continued vomiting/nausea -Your incision begins to separate -Your incision shows signs of infection such as increased redness, swelling, excessive pain, drainage (light blood or clear fluid is normal) or heat Care Plan Goals: Return to baseline health and resume normal activities following recovery period. Health Concerns: incarcerated left inguinal hernia with bowel delayed return of GI function hypokalemia Plan of Treatment: s/p repair of incarcerated left inguinal hernia NGT decompression, bowel rest and diet advanced as tolerated Follow up in the office in 1 week Follow up with PCP resume home meds Assessment: Doing well post op Discharge Date/Time: 09/01/25 15:05
== END 2025-09-01 15:05 | disposition home or self-care (01) | DRG 351 ==
LOC: HO.ED 18:39 → HO.EDOVER 19:16 → HO.S3 20:17
PROVIDERS: Physician Assistant Surgical; Registered Nurse Emergency; Admitting Provider Surgery; Emergency Provider Student in an Organized Health Care Education/Training Program; PCP Nurse Practitioner Family; Visit Provider Surgery
PROC: 0YU60JZ Supplement Left Inguinal Region with Synthetic Substitute, Open Approach (ICD-10-PCS; principal; 2025-08-27 10:00)
DX: K40.31 Unilateral inguinal hernia, with obstruction, without gangrene, recurrent (principal); C90.00 Multiple myeloma not having achieved remission; I10 Essential (primary) hypertension; N40.0 Benign prostatic hyperplasia without lower urinary tract symptoms; I25.10 Atherosclerotic heart disease of native coronary artery without angina pectoris; E87.6 Hypokalemia; Z87.891 Personal history of nicotine dependence; Z79.899 Other long term (current) drug therapy
CPT/HCPCS: 36415; 71045; 74177; 80048; 80053; 81003; 83605; 83735; 85025; 85610; 86850; 86870; 86900; 86901; 86905; 93005; 99285; C1781; J0131; J0668; J0690; J0737; J1171; J2003; J2405; J2704; J3010; J3480; Q9967

== ENCOUNTER → 2025-08-26 18:21 | Outpatient (BNV) | payer MEDICARE, SELFPAY | PROVIDERS: Admitting Provider Surgery; Emergency Provider Student in an Organized Health Care Education/Training Program; PCP Nurse Practitioner Family; Visit Provider Radiology Diagnostic Radiology | DX: K56.609 Unspecified intestinal obstruction, unspecified as to partial versus complete obstruction (principal); K40.90 Unilateral inguinal hernia, without obstruction or gangrene, not specified as recurrent; K74.60 Unspecified cirrhosis of liver; R16.1 Splenomegaly, not elsewhere classified | CPT/HCPCS: 74177 ==

== ENCOUNTER 2025-08-26 19:10 | Outpatient (BNV) | payer MEDICARE, SELFPAY | END 2025-08-29 09:25 | PROVIDERS: Admitting Provider Surgery; Emergency Provider Student in an Organized Health Care Education/Training Program; PCP Nurse Practitioner Family; Visit Provider Radiology Diagnostic Radiology | DX: Z46.59 Encounter for fitting and adjustment of other gastrointestinal appliance and device (principal) | CPT/HCPCS: 71045 ==

== ENCOUNTER 2025-08-26 19:10 | Outpatient (BNV) | payer MEDICARE, SELFPAY | END 2025-09-01 10:01 | PROVIDERS: Admitting Provider Surgery; Emergency Provider Student in an Organized Health Care Education/Training Program; PCP Nurse Practitioner Family; Visit Provider Internal Medicine Cardiovascular Disease | DX: I49.3 Ventricular premature depolarization (principal) | CPT/HCPCS: 93010 ==

== ENCOUNTER → 2025-08-26 19:10 | Outpatient (BNV) | payer MEDICARE, SELFPAY | PROVIDERS: Admitting Provider Surgery; Emergency Provider Student in an Organized Health Care Education/Training Program; PCP Nurse Practitioner Family; Visit Provider Surgery | DX: K40.31 Unilateral inguinal hernia, with obstruction, without gangrene, recurrent (principal) | CPT/HCPCS: 49521; 99232 ==

== ENCOUNTER → 2025-08-26 19:10 | Outpatient (BNV) | payer MEDICARE, SELFPAY | PROVIDERS: Admitting Provider Surgery; Emergency Provider Student in an Organized Health Care Education/Training Program; PCP Nurse Practitioner Family; Visit Provider Nurse Practitioner Family | DX: I10 Essential (primary) hypertension (principal) | CPT/HCPCS: 99223; 99499 ==

== ENCOUNTER 2025-09-08 09:29 | Outpatient (AMB) | payer MEDICARE, SELFPAY ==
--- NOTE | 2025-09-08 09:32 | A.OFFVIS_ITS ---
Vital Signs 09/08/25 09:43 Weight 144 lb BP 127/79 Blood Pressure Location Rt brachial Position Sitting Pulse 71 Intake Visit Reasons: s/p hernia inguinial surgery Intake Note: Patient here s/p Repair of recurrent incarcerated left inguinal hernia with mesh. Patient c/o: swollen lt scrotum, pain on Rt lower abdomen. Pain when swallowing from the tube placed during surgery. Taking Tylenol as needed. Surgery (): 08-27-2025 Bed Teacher Required: No Accompanied by: spouse Eunice Allergies No Known Allergies Allergy (Verified 09/08/25 09:43) HPI HPI s/p hernia inguinial surgery: Details: Mr. Castellano is a 79 year old male who presents today for a wound check and follow up visit after a hospitalization at [facility] [place] for incarcerated left inguinal hernia. He subsequently underwent repair of recurrent incarcerated left inguinal hernia with mesh on 08/27/[address] Sanchez. His hernia did contain a loop of bowel that was viable appearing and did not require resection; he however did have slow to return GI function and required NGT for decompression and bowel rest. This was eventually removed and his diet was advanced. He was discharged on 09/01/25 and was doing well. Today, he reports mild soreness at his hernia repair site with an associated lump that was not present upon discharge. He otherwise denies significant abdominal pain. He also reports his left scrotum is swollen and he has been wearing scrotal support along with icing it with some improvement. This mostly bothers him when he is sitting. He reports a fairly good appetite and is tolerating a solid diet. He did have one episode of nausea/vomiting earlier this week after eating fish but it was an isolated incident. He has been moving his bowels daily however he reports they are smaller caliber and more soft then prior to surgery. He denies fevers, chills, drainage from incision. [facility] Medical History Pneumonia Statin intolerance HTN (hypertension) AAA (abdominal aortic aneurysm) Vitamin D deficiency Subclinical hyperthyroidism Multinodular thyroid Pancytopenia Leukopenia Multiple myeloma Surgical History (Updated 09/08/25 @ 13:43 by Rupali Blackman PA-C) Hx of hernia repair (08/30/18) History of bone marrow biopsy Hx of tooth extraction History of back surgery Hx of umbilical hernia repair (06/28/13) History of AAA (abdominal aortic aneurysm) repair Family History Father CVD (cardiovascular disease) AAA (abdominal aortic aneurysm) Mother Stomach cancer Social History Household Members: Spouse Housing: House Are you a primary life care planner to a significant other at home: No Do you presently have visiting nurse or other home services: No Alcohol intake: former Comment: Patient refuses bed alarm Patient Tobacco Use Status: Former Tobacco user Years Smoked: 38 e-Cigarette/Vaping Use: Never Used Second Hand Smoke Exposure: No Special tiesha needs: No Agree to transfusion: Yes Advance Directives Date on File: 01/11/21 service: No Current occupational status: employed and retired Cognitive needs: No Hearing needs: No Vision needs: No Review of Systems Const All systems reviewed & are unremarkable except as noted in HPI and below Physical Exam Vital Signs: Last Vital Signs Pulse 71 09/08/25 09:43 BP 127/79 09/08/25 09:43 Const General: comfortable, no acute distress, well developed and alert; No ill appearing Orientation/consciousness: patient oriented x3 Resp Effort & Inspection: normal respiratory effort, able to speak in complete sentences and not tachypneic GI Other: soft, nondistended, nontender left inguinal hernia repair site- steris removed, incision is well approximated and well healed, small fullness that is semi firm of the medial aspect of the incision, some underlying induration, no surrounding erythema or edema, no ecchymosis no evidence of hernia recurrence with valsalva Palpation (GI): no guarding Other: mild scrotal edema Skin General skin exam: no rashes or lesions noted Neuro General: patient oriented x3 and moves all extremities Assessment & Plan Assessment & Plan (1) S/P left inguinal hernia repair: Code(s): Z98.890 - Other specified postprocedural states; Z87.19 - Personal history of other diseases of the digestive system Category: Surgical Plan 79 year old male who underwent repair of recurrent incarcerated left inguinal hernia with mesh on 08/27/25. He tolerated the procedure well but had delayed return of GI function requiring NGT decompression and bowel rest. He is overall doing well today but is concerned about a lump at his hernia repair site. The incision is well healed without evidence of infection. His exam is suggestive of a hematoma of the medial aspect; he did have some moderate ecchymosis at that the area in the hospital which has resovled. No evidence of hernia recurrence. He was instructed to apply a hot pack to the area to help the hematoma/indurated tissue that is expected post operatively resolve. He was reassured that this as well as the scrotal edema and smaller stools will improve with time. He is to follow up in 1 month for reexamination. He is to call sooner if he develops concerns. Patient and comfortable with plan. Coding Level of Care Code Global (86392) Diagnoses S/P left inguinal hernia repair Z98.890; Z87.19
[2025-09-08 09:43] VITALS: BP 127/79; PULSE 71
--- OUTSIDE RECORDS SUMMARY | 2025-09-08 10:32 | XMS_ITS | Patient Health Record ---
Author Organization [facility] Address [address] [place] [address] Care Team Providers Care Compensation Coordinator Name Role Phone CLIFF LINTON Primary Care Provider Ana Madsen Unavailable [phone] Allergies Allergen (clinical drug ingredient) Drug/Non Drug [...] Problem Screening for malignant neoplasm of colon (477629359) Encounter for screening for malignant neoplasm of colon (Z12.11) Active confirmed Problem Nausea and vomiting (52575029) Nausea with vomiting, unspecified (R11.2) Active confirmed Problem Preprocedural examination (428622286640723) Preprocedural examination (Z01.818) Active confirmed Problem Constipation (68064925) Constipation, unspecified constipation type (K59.00) Active confirmed Plan Of Treatment No Information Insurance Providers Payer Name Payer Address Payer Phone Subscriber Number Group Number Insured Name Patient Relationship to Insured Coverage Start Date Coverage End Date [facility] [address] [place] [phone] [id number] ANA ORTIZ Self - patient is the insured Medical (General) History Medical History History ICD Code Emphysema-mild Denies MD,DM,CVA,renal disease Arthritis Multiple myeloma 10/2019--sees Dr. Chacorta mendez for chemotherapy HTN Neg. colonoscopy in 08/2009 Hyperlipidemia Abdominal aortic aneurysm with treatment as below Surgical History Surgery Date(Month/Year) Lumbar surgery - Dr. De La Paz 2007 [place] [facility] [place]sees Dr. Galeano now 2009 Hernia repairs- left inguinal and umbili broderick
--- OUTSIDE RECORDS SUMMARY | 2025-09-08 10:32 | XMS_ITS | Clinical Summary ---
Author Organization [facility] Address [address] [place] [address] Phone Care Team Providers Care Soccer Commentator Name Role Phone Amena Kaplan MD Primary [...] EST) SODIUM 135(L) 136 - 145 mmol/L [facility] LIC# [id number] POTASSIUM 4.1 3.4 - 5.1 mmol/L [facility]# [id number] CHLORIDE 101 98 - 107 mmol/L [facility]# [id number] CO2 29 22 - 31 mmol/L [facility]# [id number] BUN 13 6 - 23 mg/dL [facility]IC# [id number] CREATININE 0.79 0.50 - 1.20 mg/dL [facility]IC# [id number] GLUCOSE 99 70 - 100 mg/dL [facility]# [id number] ALBUMIN 3.0(L) 3.5 - 5.2 g/dL [facility]# [id number] TOTAL PROTEIN 7.9 6.4 - 8.3 g/dL [facility]# [id number] CALCIUM 8.8 8.8 - 10.7 mg/dL [facility]IC# [id number] ALKALINE PHOSPHATASE 75 40 - 129 U/L [facility]IC# [id number] TOTAL BILIRUBIN 0.3 0.2 - 1.2 mg/dL [facility]IC# [id number] AST 16 <41 U/L [facility] LIC# [id number] ALT 24 <42 U/L [facility]IC# [id number] GLOBULIN 4.9(H) 1.9 - 4.1 g/dL [facility]# [id number] EGFR 89 >59 mL/min/1.7 3m2 [facility]IC# [id number] Comment:If patient is Tara n[place], multiply result by 1.159. Estimated glomerular filtration rate calculated using the CKD-EPI equation. ANION GAP 5(L) 7 - 17 mmol/L [facility]IC# [id number] Blood 12/19/2019 1:58 PM EST 12/19/2019 2:12 PM EST Abel Jin MD LAB BLOOD ORDERABLES Final Result [facility] LIC# [id number] [address] [place] [id number] from Last 3 Months or Most Recently Relevant to Health Maintenance Insurance GENERIC MEDICARE REPLACEMENT GENERIC MEDICARE REPLACEMENT GENERIC MEDICARE REPLACEMENT GENERIC MEDICARE REPLACEMENT GENERIC MEDICARE REPLACEMENT GENERIC MEDICARE REPLACEMENT GENERIC MEDICARE REPLACEMENT GENERIC MEDICARE REPLACEMENT GENERIC MEDICARE REPLACEMENT Care Teams Soccer Commentator Relationship Specialty Start Date End Date Amena Kaplan MD [address] [facility] [place] [address] PCP - General Internal Medicine 12/19/19 Additional Source Comments The information contained in this document represents components of the legal health record. It is not the complete legal health record.[facility]
--- OUTSIDE RECORDS SUMMARY | 2025-09-08 10:32 | XMS_ITS | Clinical Summary ---
Author Organization [address] Address [address] [place] [address] Phone Care Team Providers Care Eeg Technologist Name Role Phone Tho Cruz NP [...] EDT [facility] eGFR (-BANGLADESHI) >60 >60 mL/min/1. 73m2 05/07/2021 3:12 AM EDT [facility] eGFR (NON -Citizen Of [place]) >60 >60 mL/min/1. 73m2 05/07/2021 3:12 AM [...] 05/07/2021 3:12 AM EDT [facility] Calcium 8.5 8.5 - 10.1 mg/dL 05/07/2021 3:12 AM EDT [facility] Blood Venipuncture / Unknown 05/07/2021 2:40 AM EDT 05/07/2021 2:44 AM EDT Vishnu Fontanez MD LAB BLOOD ORDERABLES Fin al Result Performing Organization Address [facility]/State/[facility] Co de Phone Number [facility] [address] [place] [address] from Last 3 Months or Most Recently Relevant to Health Maintenance Insurance MEDICARE [place] [facility] [place] [facility] [place] [facility] Care Teams Eeg Technologist Relationship Specialty Start Date End Date Tho Cruz NP [address] [place] [address] PCP - General Family Medicine 05/07/21
--- OUTSIDE RECORDS SUMMARY | 2025-09-08 10:32 | XMS_ITS | Clinical Summary ---
Author Organization Patient Business Ser [facility] Address [address] [place] [address] Care Team Providers Care Clinical Lab Technologist Name Role Phone Lita Hill Primary Care Provider [phone] Encounters Date Type Department Care Team Description 08/02/2025 8:09 AM EDT - 08/02/2025 11:59 PM EDT Hospital Encounter [facility] PET Scan [address] [place] [address] Multiple myeloma not having achieved [...] EDT Multiple myeloma not having achieved remission ([facility] V24, [facility] V28) from Last 3 Months Results * [...] Signed Date: 08/03/2025 16:04 ET Workstation ID: [id number] Transcribed By: Self Edit Transcribed Date: 08/03/2025 [...] Signed Date: 08/03/2025 16:04 ET Workstation ID: [id number] Transcribed By: Self Edit Transcribed Date: 08/03/2025 15:59 ET us Andrea Beach MD IMG NM PROCEDURES Final Result from Last 3 Months Insurance [employer] Care Teams Clinical Lab Technologist Relationship Specialty Start Date End Date Lita Hill [address] [place] [phone] PCP - General 03/11/18
== END 2025-09-08 10:14 | disposition home or self-care (01) ==
LOC: HO.HGS 09:30
PROVIDERS: PCP Nurse Practitioner Family; Visit Provider Physician Assistant Surgical
DX: Z98.890 Other specified postprocedural states (principal); Z87.19 Personal history of other diseases of the digestive system
CPT/HCPCS: 99024

== ENCOUNTER → 2025-09-08 09:29 | Outpatient (BNVA) | payer MEDICARE, SELFPAY | PROVIDERS: PCP Nurse Practitioner Family; Visit Provider Physician Assistant Surgical | DX: Z98.890 Other specified postprocedural states (principal); Z87.19 Personal history of other diseases of the digestive system | CPT/HCPCS: 99212 ==

== ENCOUNTER 2025-09-14 06:39 | Outpatient (REF) | payer MEDICARE, SELFPAY ==
--- OUTSIDE RECORDS SUMMARY | 2025-09-14 06:43 | XMS_ITS | Patient Health Record ---
Author Organization [facility] Address [address] [place] [address] Care Team Providers Care Vocational Instructor Name Role Phone CLIFF LINTON Primary Care Provider Ana Madsen Unavailable [phone] Allergies Allergen (clinical drug ingredient) Drug/Non Drug [...] Problem Screening for malignant neoplasm of colon (009615779) Encounter for screening for malignant neoplasm of colon (Z12.11) Active confirmed Problem Nausea and vomiting (50876428) Nausea with vomiting, unspecified (R11.2) Active confirmed Problem Preprocedural examination (790632488896637) Preprocedural examination (Z01.818) Active confirmed Problem Constipation (25017814) Constipation, unspecified constipation type (K59.00) Active confirmed Plan Of Treatment No Information Insurance Providers Payer Name Payer Address Payer Phone Subscriber Number Group Number Insured Name Patient Relationship to Insured Coverage Start Date Coverage End Date [facility] [address] [place] [phone] [id number] ANA ORTIZ Self - patient is the insured Medical (General) History Medical History History ICD Code Emphysema-mild Denies PR,DM,CVA,renal disease Arthritis Multiple myeloma 10/2019--sees Dr. Chacorta mendez for chemotherapy HTN Neg. colonoscopy in 08/2009 Hyperlipidemia Abdominal aortic aneurysm with treatment as below Surgical History Surgery Date(Month/Year) Lumbar surgery - Dr. De La Paz 2007 Endovascular graft placement [place] [facility] for AAA--sees Dr. Galeano now 2009 Hernia repairs- left inguinal and umbili broderick
--- OUTSIDE RECORDS SUMMARY | 2025-09-14 06:43 | XMS_ITS | Clinical Summary ---
Author Organization Patient Business [facility] Address [address] [place] [address] Care Team Providers Care Fleet Service Manager Name Role Phone Lita Hill Primary Care Provider [phone] Encounters Date Type Department Care Team Description 08/02/2025 8:09 AM EDT - 08/02/2025 11:59 PM EDT Hospital Encounter [facility] PET Scan [address] [place] [address] Multiple myeloma not having achieved [...] EDT Multiple myeloma not having achieved remission ([facility] V24, [facility] V28) from Last 3 Months [...] Signed Date: 08/03/2025 16:04 ET Workstation ID: [id number] Transcribed By: Self Edit Transcribed Date: 08/03/2025 [...] Signed Date: 08/03/2025 16:04 ET Workstation ID: [id number] Transcribed By: Self Edit Transcribed Date: 08/03/2025 15:59 ET us Andrea Beach MD IMG NM PROCEDURES Final Result from Last 3 Months Insurance [employer] Care Teams Fleet Service Manager Relationship Specialty Start Date End Date Lita Hill [address] [place] [phone] PCP - General 03/11/18
--- OUTSIDE RECORDS SUMMARY | 2025-09-14 06:44 | XMS_ITS | Clinical Summary ---
Author Organization [facility] Address [address] [place] [phone] Phone Care Team Providers Care Stacker Tender Name Role Phone Amena Kaplan MD Primary [...] Date/Time Associated Diagnosis Comments COMPREHENSIVE METABOLIC PANEL (CMP) Routine 12/19/2019 1:58 PM EST Multiple myeloma, remission status unspecified from Last 3 Months or Most Recently Relevant to Health Maintenance Results * (ABNORMAL) Comprehensive metabolic panel (12/19/2019 1:58 PM EST) SODIUM 135(L) 136 - 145 mmol/L [facility] LIC# [id number] POTASSIUM 4.1 3.4 - 5.1 mmol/L [facility] LIC# [id number] CHLORIDE 101 98 - 107 mmol/L [facility] LIC# [id number] CO2 29 22 - 31 mmol/L [facility] LIC# [id number] BUN 13 6 - 23 mg/dL [facility] LIC# [id number] CREATININE 0.79 0.50 - 1.20 mg/dL [facility] LIC# [id number] GLUCOSE 99 70 - 100 mg/dL [facility] LIC# [id number] ALBUMIN 3.0(L) 3.5 - 5.2 g/dL [facility] LIC# [id number] TOTAL PROTEIN 7.9 6.4 - 8.3 g/dL [facility] LIC# [id number] CALCIUM 8.8 8.8 - 10.7 mg/dL [facility] LIC# [id number] ALKALINE PHOSPHATASE 75 40 - 129 U/L [facility] LIC# [id number] TOTAL BILIRUBIN 0.3 0.2 - 1.2 mg/dL [facility] LIC# [id number] AST 16 <41 U/L [facility] LIC# [id number] ALT 24 <42 U/L [facility] LIC# [id number] GLOBULIN 4.9(H) 1.9 - 4.1 g/dL [facility] LIC# [id number] EGFR 89 >59 mL/min/1.7 3m2 [facility] LIC# [id number] Comment:If patient is Tara n-Surinamese, multiply result by 1.159. Estimated glomerular filtration rate calculated using the CKD-EPI equation. ANION GAP 5(L) 7 - 17 mmol/L [facility] LIC# [id number] Blood 12/19/2019 1:58 PM EST 12/19/2019 2:12 PM EST Abel Jin MD LAB BLOOD BKR ORDERABLES Fi nal Result [facility] LIC# [id number] [address] [place] [id number] from Last 3 Months or Most Recently Relevant to Health Maintenance Insurance GENERIC MEDICARE REPLACEMENT GENERIC MEDICARE REPLACEMENT GENERIC MEDICARE REPLACEMENT GENERIC MEDICARE REPLACEMENT GENERIC MEDICARE REPLACEMENT GENERIC MEDICARE REPLACEMENT GENERIC MEDICARE REPLACEMENT GENERIC MEDICARE REPLACEMENT GENERIC MEDICARE REPLACEMENT Care Teams Stacker Tender Relationship Specialty Start Date End Date Amena Kaplan MD [address] [place] [address] PCP - General Internal Medicine 12/19/19 Additional Source Comments The information contained in this document represents components of the legal health record. It is not the complete legal health record.[facility]
--- OUTSIDE RECORDS SUMMARY | 2025-09-14 06:44 | XMS_ITS | Clinical Summary ---
Author Organization [address] Address [address] [place] [address] Phone Care Team Providers Care Balloon Artist Name Role Phone Tho Cruz NP Primary [...] EDT [facility] eGFR (-SCOTTISH) >60 >60 mL/min/1. 73m2 05/07/2021 3:12 AM EDT [facility] eGFR (NON -Prydeinig) >60 >60 mL/min/1. 73m2 05/07/2021 3:12 AM [...] mmol/L 05/07/2021 3:12 AM EDT [facility] Calcium 8.5 8.5 - 10.1 mg/dL 05/07/2021 3:12 AM EDT [facility] Blood Venipuncture / Unknown 05/07/2021 2:40 AM EDT 05/07/2021 2:44 AM EDT Vishnu Fontanez MD LAB BLOOD ORDERABLES Fin al Result Performing Organization Address [facility]/State/[facility] Co de Phone Number [facility] [address] [place] [address] from Last 3 Months or Most Recently Relevant to Health Maintenance Insurance MEDICARE MANAGED [facility] MEDICARE MANAGED [facility] MEDICARE MANAGED [facility] Care Teams Balloon Artist Relationship Specialty Start Date End Date Tho Cruz NP [address] [place] [address] PCP - General Family Medicine 05/07/21
[2025-09-14 06:52] LABS: MANUAL DIFF FLAG NO
[2025-09-14 06:57] LABS: Hematocrit 40.6 % (42.0-52.0); Hemoglobin 13.2 g/dl (14.0-18.0); Imm Gran Abs Auto 0.02 X10*3/uL (0.00-0.03); Imm Gran Pct Auto 0.4 % (0.0-0.4); Lymphocytes Absolute Auto 1.0 X10*3/uL (1.2-4.9); Mean Corpuscular HGB Conc 32.5 g/dl (31.0-36.0); Mean Corpuscular Hemoglobin 32.4 pg (27.0-33.0); Mean Corpuscular Volume 99.5 fL (80.0-98.0); NRBC Abs Auto 0.000 X10*3/uL (0.0-0.012); NRBC Pct Auto 0.0 /100WBC (0.0-0.2); Platelet Count 192 X10*3/uL (160-400); Red Blood Count 4.08 X10*6/uL (4.60-5.80); White Blood Count 4.9 X10*3/uL (4.8-10.8)
[2025-09-14 07:10] LABS: Alanine Aminotransferase 11 U/L (0-40); Albumin Level 4.3 g/dL (3.5-5.0); Alkaline Phosphatase 89 U/L (39-117); Anion Gap 12 (12-20); Aspartate Amino Transferase 18 U/L (5-37); Blood Urea Nitrogen 18 mg/dL (9-16); Calcium 8.9 mg/dL (8.4-10.2); Carbon Dioxide 26 mmol/L (22-29); Chloride 106 mmol/L (96-108); Estimated Glomerular Filt Rate > 60; Potassium 4.2 mmol/L (3.3-5.1); Sodium 140 mmol/L (135-145); Total Protein 6.1 g/dL (6.5-8.0)
[2025-09-18 09:19] LABS: Kappa/Lambda Lt Ch Free Ratio >1.00 (0.26-1.65)
== END 2025-09-14 06:40 | disposition home or self-care (01) ==
LOC: HO.LAB 06:39
PROVIDERS: PCP Nurse Practitioner Family; Visit Provider Internal Medicine Medical Oncology
DX: Z01.84 Encounter for antibody response examination (principal); C90.00 Multiple myeloma not having achieved remission
CPT/HCPCS: 36415; 80053; 82784; 83521; 85025; 86334

== ENCOUNTER 2025-09-21 19:26 | Emergency (ER) | payer MEDICARE, SELFPAY ==
--- NOTE | ~2025-09-21 | XR_ITS ---
CLINICAL HISTORY: chest pain 1 view chest x-ray Comparison: CR/SR - XR CHEST 1 VIEW - 08/29/25 09:16 EDT Findings: There is a small focal opacity in the lower left lung field, not seen on prior study. This may be an area of infection. Heart size is normal. No acute fracture. IMPRESSION: 1. Left base small opacity which could be area of infection or aspiration, new in comparison to prior This document has been electronically signed by: Herman Tovar MD on 09/22/2025 00:10:10
[2025-09-21 19:39] VITALS: BP 150/86; PULSE 76; RESP 18; TEMP 36.7; O2SAT 97; BMI 23.6
--- NOTE | 2025-09-21 19:47 | ECG_ITS ---
Test Reason : ABD PAIN Blood Pressure : */* mmHG Vent. Rate : 81 BPM Atrial Rate : * BPM P-R Int : * ms QRS Dur : 98 ms QT Int : 388 ms P-R-T Axes : * -21 36 degrees QTcB Int : 450 ms Normal sinus rhythm with Premature atrial complexes When compared with ECG of 01-Sep-2025 10:01, Nonspecific T wave abnormality has replaced inverted T waves in Inferior leads Referred By: Sushant Flanagan Electronically Signed By: LAUREN BROWNING MD
--- NOTE | 2025-09-21 19:47 | ED.GENADULT ---
HPI - General Adult General Chief complaint: Abdominal Pain Stated complaint: Stomach Pain Time Seen by Provider: 09/21/25 22:54 Source: patient, RN notes reviewed and old records reviewed Mode of arrival: ambulatory Limitations: no limitations History of Present Illness ED Provider: Nina HPI narrative: 79-year-old male past medical history significant for atrial fibrillation, aortic aneurysm status post repair, coronary artery disease, hypertension, chronic constipation, acid reflux, presenting for evaluation of ?heartburn. ? The patient reports that after having dinner around 6 p.m. he developed burning in his upper abdomen into his chest. He had associated nausea and began to have hiccups. ? He reports he tried to drink some water to treat the heartburn symptoms and he ended up vomiting up the water He felt as if something was stuck in his throat Of note, the patient was operated on on 08/27/2025 for a small bowel obstruction with Dr. Sanchez He has been passing gas and having bowel movements since his discharge He denies any lower abdominal pain Denies any shortness of breath or palpitations Related Data Home Medications ?Medication ?Instructions ?Recorded ?Confirmed cholecalciferol (vit D3) 137.5 mcg 1 tab PO DAILY 05/24/23 08/27/25 (5,500 unit)-vit K2 200 mcg tablet omega-3s 300 as-cvq-flz-other 1 cap PO BEDTIME 05/24/23 08/27/25 [id number] oil 1,000 mg capsule ([place]-3 Fish Oil) aspirin 81 mg capsule 81 mg PO DAILY Hypertension 04/29/24 08/27/25 atorvastatin 40 mg tablet 40 mg PO MOWEFR@2100 08/27/25 08/27/25 finasteride 5 mg tablet 2.5 mg PO MOWEFR@0900 08/27/25 08/27/25 metoprolol succinate 100 mg 100 mg PO DAILY 08/27/25 08/27/25 tablet,extended release 24 hr Previous Rx's ?Medication ?Instructions ?Recorded lisinopril 5 mg tablet 5 mg PO DAILY #90 tabs 03/29/25 hydrochlorothiazide 25 mg tablet 25 mg PO DAILY #90 tabs 04/09/25 acyclovir 400 mg tablet 400 mg PO DAILY #90 tabs 05/22/25 amlodipine 10 mg tablet (Norvasc) 10 mg PO DAILY #90 tabs 08/17/25 omeprazole 20 mg capsule,delayed 20 mg PO DAILY #14 caps 09/22/25 release Allergies Allergy/AdvReac Type Severity Reaction Status Date / Time No Known Allergies Allergy Verified 09/21/25 19:42 Review of Systems Constitutional: Constitutional: Denies body ache(s), Denies chills, Denies fever(s) and Denies headache(s) Eyes: Eyes: Denies blurry vision ENT: Denies dysphagia, Denies vertigo, Denies dizziness and Denies headache(s) Cardiovascular: Cardiovascular: Reports chest pain (After eating), Denies chest pain at rest, Reports Epigastric Pain and Reports epigastric discomfort Respiratory: Respiratory: Denies cough Gastrointestinal: Gastrointestinal: Denies hematochezia, Reports constipation, Denies dysphagia, Reports dyspepsia, Reports heartburn, Denies diarrhea, Denies loose stools, Reports nausea, Reports vomiting and Denies hematemesis Musculoskeletal: Musculoskeletal: Denies back pain Integumentary/Breasts: Skin/Breast: Denies rash Neurologic: Denies vertigo, Denies dizziness and Denies headache(s) Psychiatric: Psychiatric: Denies anxiety [facility] Past Medical History Medical History (Updated 09/23/25 @ 00:01 by Ok White) Incarcerated hernia HTN (hypertension) Pneumonia Statin intolerance HTN (hypertension) AAA (abdominal aortic aneurysm) Vitamin D deficiency Subclinical hyperthyroidism Multinodular thyroid Pancytopenia Leukopenia Multiple myeloma Surgical History (Updated 09/15/25 @ 09:48 by Екатерина Beach MD) S/P left inguinal hernia repair Hx of hernia repair (07/08/18) History of bone marrow biopsy Hx of tooth extraction History of back surgery Hx of umbilical hernia repair (06/28/13) History of AAA (abdominal aortic aneurysm) repair Family History Family History Father CVD (cardiovascular disease) AAA (abdominal aortic aneurysm) Mother Stomach cancer Social History Social History Household Members: Spouse Housing: House Are you a primary director of managed care to a significant other at home: No Do you presently have visiting nurse or other home services: No Alcohol intake: former Comment: Patient refuses bed alarm Patient Tobacco Use Status: Former Tobacco user Years Smoked: 38 e-Cigarette/Vaping Use: Never Used Second Hand Smoke Exposure: No Special tiesha needs: No Agree to transfusion: Yes Advance Directives Date on File: 01/11/21 service: No Current occupational status: employed and retired Cognitive needs: No Hearing needs: No Vision needs: No Physical Exam ED Vital Signs: Vital Signs - 24 hr 09/21/25 19:39 09/21/25 22:49 Temperature 98.0 F 98.0 F Pulse Rate 76 70 Respiratory Rate 18 18 Blood Pressure 150/86 H 124/83 Pulse Oximetry 97 97 Oxygen Delivery Method Room Air Room Air BMI result Body Mass Index 23.6 Const General: healthy appearing, comfortable, no acute distress, alert and awake Nutritional Appearance: well nourished Orientation/consciousness: patient oriented x3 HENMT Head: Yes normocephalic and Yes atraumatic Throat: Yes posterior oropharynx normal Eyes Eyelids: Yes eyelids normal Conjunctivae: conjunctivae normal Sclerae: sclerae normal Corneas: corneas normal Pupils: Equal, round and reactive pupils present EOM: EOMs intact bilaterally Neck Neck: Yes full ROM Resp Effort & Inspection: normal respiratory effort, able to speak in complete sentences and not labored GI Inspection: No distended Palpation (GI): Soft to palpation, not firm, no guarding and not rigid Auscultation: normoactive bowel sounds Skin General skin exam: elasticity normal Neuro General: patient oriented x3 Cranial nerves: Yes Equal, round and reactive pupils present and Yes Bilaterally intact EOM present Cognition (Neuro): normal cognition Extrem Other: Moving all extremities well without any obvious deformities Course Course Course Narrative: RmE: 79-year-old male presents to ED for abdominal pain epigastric acid burning sensation after eating 2 Esparza salad. Patient recently diagnosed with small bowel obstruction 2 weeks ago. Labs EKG ordered Reevaluation(s) Reevaluation #1: Patient's repeat troponin is still undetectable. His chest x-ray shows a questionable left base opacity that could be aspiration. I discussed with the patient if he felt as if he had aspirated during his episode of heartburn and he felt as if he did not vomit at all and did not choke. He denies any cough, denies any shortness of breath or fevers. At this time I did discuss return precautions but we will defer antibiotic treatment at this time. This could be a mild pneumonitis. We will discharge the patient home with a PPI for his GERD Time: 00:17 Medications Administered Discontinued Medications Generic Name Dose Route Start Last Admin Trade Name Etelvina PRN Reason Stop Dose Admin Omeprazole 40 mg 09/22/25 00:18 09/22/25 00:28 Omeprazole 40 [address]Dr DEL ROSARIO 09/22/25 00:19 40 mg ONCE ONE Administration Medical Decision Making Medical Decision Making [facility] Narrative: 79-year-old male past medical history as above presents for evaluation of burning epigastric pain that radiates into his chest. He also complains of a foreign body sensation after eating in his esophagus/throat. When I evaluate him he reports that he is asymptomatic, I gave him a glass of water and had him drink a few small sips at a time. It was able to do this without any discomfort or nausea/vomiting. I had him drink more water and he still had no issues. Give him a few small crackers and again he had no issues. His labs are reassuring, given his age and medical history/comorbidities I ordered a repeat troponin as this could be an atypical ACS presentation though his EKG is nonischemic. If his negative he rules out for ACS. I did order a chest x-ray which would help evaluate for hiatal hernia, any obvious bowel obstruction if there are large bowel loops under the diaphragm which appears unremarkable to me. Awaiting radiology read. Meantime I discussed with GI as I suspect the patient has some sort of esophageal dysmotility versus achalasia versus stricture versus EGJ dysfunction. Dr Rodas feels as though as long as the patient can drink fluids tonight he can be discharged home and try a soft diet tomorrow. He is recommended to start on a PPI and follow up with GI office if he has recurrent symptoms tomorrow. I discussed this with the patient who agrees with plan Differential Diagnosis Differential Diagnoses: The differential diagnosis associated with the presentation includes Achalasia Esophageal dysmotility Esophageal stricture Esophageal food bolus EGJ dysfunction GERD Peptic ulcer disease Atypical chest pain ACS Admission/Observation Consideration of admission/observation: Escalation of care including admission/observation considered Consult Healthcare Provider Management of the patient was discussed with: Supervisor Stripping Lab Data [facility] Lab Attestation statement: I reviewed the patient's lab results. No leukocytosis or significant anemia. The patient has a mild normocytic anemia consistent with a baseline. Very mild thrombocytopenia again consistent with a baseline. No significant left shift. Chemistries without any concerning abnormalities. Patient's BUN and creatinine are slightly elevated compared to his labs from last week which could be due to poor oral intake. In his troponin negative. 09/21/25 20:00 09/21/25 20:00 Labs: Lab Results 09/21/25 09/21/25 Range/Units 20:00 23:36 WBC 5.6 (4.8-10.8) X10*3/uL RBC 3.94 L (4.60-5.80) X10*6/uL Hgb 12.9 L (14.0-18.0) g/dl Hct 38.7 L (42.0-52.0) % MCV 98.2 H (80.0-98.0) fL MCH 32.7 (27.0-33.0) pg MCHC 33.3 (31.0-36.0) g/dl RDW 13.5 (11.0-16.0) % Plt Count 128 L D (160-400) X10*3/uL MPV 11.6 (9.4-12.4) fL Immature Gran % (Auto) 0.5 H (0.0-0.4) % Neut % (Auto) 59.0 (45-73) % Lymph % (Auto) 26.6 (20-40) % Kaufman % (Auto) 11.2 H (2-11) % Eos % (Auto) 2.3 (0-4) % Baso % (Auto) 0.4 (0-2) % Lymph # (Auto) 1.5 (1.2-4.9) X10*3/uL Kaufman # (Auto) 0.6 (0.1-1.2) X10*3/uL Eos # (Auto) 0.1 (0.0-0.4) X10*3/uL Baso # (Auto) 0.0 (0.0-0.2) X10*3/uL Abs Immat Gran (auto) 0.03 (0.00-0.03) X10*3/uL Absolute Neuts (auto) 3.3 (2.0-8.3) x10*3/uL Absolute Nucleated RBC 0.020 H (0.0-0.012) X10*3/uL Nucleated RBC % (auto) 0.4 H (0.0-0.2) /100WBC Smear Tech's Comments VERIFIED Sodium 141 (135-145) mmol/L Potassium 4.2 (3.3-5.1) mmol/L Chloride 109 H (96-108) mmol/L Carbon Dioxide 24 (22-29) mmol/L Anion Gap 12 (12-20) BUN 28 H (9-16) mg/dL Creatinine 1.15 (0.5-1.4) mg/dL Estim Creat Clear Calc 51.2 Estimated GFR > 60 Random Glucose 81 (60-115) mg/dL Calcium 9.5 D (8.4-10.2) mg/dL Total Bilirubin 0.4 (0.0-1.0) mg/dL AST 18 (5-37) U/L ALT 12 (0-40) U/L Alkaline Phosphatase 88 (39-117) U/L Troponin I High Sens < 2.7 < 2.7 (<3.5-35.0) ng/L Total Protein 6.2 L (6.5-8.0) g/dL Albumin 4.3 (3.5-5.0) g/dL Lipase 22 (8-78) U/L Discharge Plan Discharge Clinical Impression: Chest pain due to GERD Patient Disposition: Home, Self-Care Instructions: Chest Pain (ED), GERD (Gastroesophageal Reflux Disease) (ED) Additional Instructions: Your workup in the ER today was reassuring pain Your chest x-ray showed a question of infection versus aspiration pneumonitis in the left lower lung. You should return to the ER or toxic your doctor if you develop worsening cough, shortness of breath or fevers. I spoke to the GI doctor, Dr. Rodas, who recommends taking a PPI medication and a liquid diet until tomorrow. Tomorrow advanced to a soft diet and if you have any recurrence of your symptoms you should follow up with the GI office at the number provided Return for new or worsening symptom Prescriptions: New omeprazole 20 mg capsule,delayed release(DR/EC) 20 mg PO DAILY Qty: 14 0RF No Action lisinopril 5 mg tablet 5 mg PO DAILY Qty: 90 1RF hydrochlorothiazide 25 mg tablet 25 mg PO DAILY Qty: 90 1RF amlodipine [Norvasc] 10 mg tablet 10 mg PO DAILY Qty: 90 1RF aspirin 81 mg Capsule 81 mg PO DAILY MDD 81 acyclovir 400 mg Tablet 400 mg PO DAILY Qty: 90 3RF [place]-3 Fish Oil 300-1,000 mg Capsule 1 cap PO BEDTIME vitamin D3-vitamin K2 137.5-200 mcg Tablet 1 tab PO DAILY metoprolol succinate 100 mg tablet extended release 24 hr 100 mg PO DAILY Protocol: Hold for HR <: HOLD for HR < : 60 finasteride 5 mg tablet 2.5 mg PO MOWEFR@0900 atorvastatin 40 mg tablet 40 mg PO MOWEFR@2100 Interventions: ED Discharge Assessment Last Done: 09/22/25 00:31 Discharge Date/Time: 09/22/25 00:31 Print Language: Uzbek
[2025-09-21 20:21] LABS: Alanine Aminotransferase 12 U/L (0-40); Albumin Level 4.3 g/dL (3.5-5.0); Alkaline Phosphatase 88 U/L (39-117); Anion Gap 12 (12-20); Aspartate Amino Transferase 18 U/L (5-37); Blood Urea Nitrogen 28 mg/dL (9-16); Calcium 9.5 mg/dL (8.4-10.2); Carbon Dioxide 24 mmol/L (22-29); Chloride 109 mmol/L (96-108); Creatinine Clr Calc Pharmacy 51.2; Estimated Glomerular Filt Rate > 60; Lipase 22 U/L (8-78); Potassium 4.2 mmol/L (3.3-5.1); Sodium 141 mmol/L (135-145); Total Protein 6.2 g/dL (6.5-8.0)
[2025-09-21 20:32] LABS: Troponin-I High Sensitivity < 2.7 ng/L (<3.5-35.0)
[2025-09-21 20:43] LABS: Hematocrit 38.7 % (42.0-52.0); Hemoglobin 12.9 g/dl (14.0-18.0); Imm Gran Abs Auto 0.03 X10*3/uL (0.00-0.03); Imm Gran Pct Auto 0.5 % (0.0-0.4); Lymphocytes Absolute Auto 1.5 X10*3/uL (1.2-4.9); MANUAL DIFF FLAG SCAN; Mean Corpuscular HGB Conc 33.3 g/dl (31.0-36.0); Mean Corpuscular Hemoglobin 32.7 pg (27.0-33.0); Mean Corpuscular Volume 98.2 fL (80.0-98.0); NRBC Abs Auto 0.020 X10*3/uL (0.0-0.012); NRBC Pct Auto 0.4 /100WBC (0.0-0.2); PLT CLUMP 1; Red Blood Count 3.94 X10*6/uL (4.60-5.80); SCAN SMEAR FLAG 1
[2025-09-21 20:49] LABS: Platelet Count 128 X10*3/uL (160-400); White Blood Count 5.6 X10*3/uL (4.8-10.8)
[2025-09-21 22:49] VITALS: BP 124/83; PULSE 70; RESP 18; TEMP 36.7; O2SAT 97
--- OUTSIDE RECORDS SUMMARY | 2025-09-21 22:56 | XMS_ITS | Clinical Summary ---
Author Organization Patient Business Ser [facility] Address [address] [place] [address] Care Team Providers Care Fan Balancer Name Role Phone Lita Hill Primary Care Provider [phone] Encounters Date Type Department Care Team Description 08/02/2025 8:09 AM EDT - 08/02/2025 11:59 PM EDT Hospital Encounter [facility] PET Scan [address] [place] [address] Multiple myeloma not having achieved [...] EDT Multiple myeloma not having achieved remission ([facility] V24, [facility] V28) from Last 3 Months Results * [...] Signed Date: 08/03/2025 16:04 ET Workstation ID: [id number] Transcribed By: Self Edit Transcribed Date: 08/03/2025 [...] Signed Date: 08/03/2025 16:04 ET Workstation ID: [id number] Transcribed By: Self Edit Transcribed Date: 08/03/2025 15:59 ET us Andrea Beach MD IMG [place] PROCEDURES Final Result from Last 3 Months Insurance [employer] MED[employer]AGE Care Teams Fan Balancer Relationship Specialty Start Date End Date Lita Hill [address] [place] [id number] PCP - General 03/11/18
--- OUTSIDE RECORDS SUMMARY | 2025-09-21 22:56 | XMS_ITS | Patient Health Record ---
Author Organization [facility] Address [address] [place] [address] Care Team Providers Care Land Agent Name Role Phone CLIFF LINTON Primary Care Provider Ana Madsen Unavailable [phone] Allergies Allergen (clinical drug ingredient) Drug/Non Drug [...] Problem Screening for malignant neoplasm of colon (050513454) Encounter for screening for malignant neoplasm of colon (Z12.11) Active confirmed Problem Nausea and vomiting (89166085) Nausea with vomiting, unspecified (R11.2) Active confirmed Problem Preprocedural examination (259871492106172) Preprocedural examination (Z01.818) Active confirmed Problem Constipation (59482636) Constipation, unspecified constipation type (K59.00) Active confirmed Plan Of Treatment No Information Insurance Providers Payer Name Payer Address Payer Phone Subscriber Number Group Number Insured Name Patient Relationship to Insured Coverage Start Date Coverage End Date [facility] [address] [place] [address] [phone] [id number] ANA ORTIZ Self - patient is the insured Medical (General) History Medical History History ICD Code Emphysema-mild Denies CT,DM,CVA,renal disease Arthritis Multiple myeloma 10/2019--sees Dr. Chacorta mednez for chemotherapy HTN Neg. colonoscopy in 08/2009 Hyperlipidemia Abdominal aortic aneurysm with treatment as below Surgical History Surgery Date(Month/Year) Lumbar surgery - Dr. De La Paz 2007 [place] [facility] [place]sees Dr. Galeano now 2009 Hernia repairs- left inguinal and umbili broderick
--- OUTSIDE RECORDS SUMMARY | 2025-09-21 22:56 | XMS_ITS | Clinical Summary ---
Author Organization [facility] Address [address] [place] [address] Phone Care Team Providers Care Air And Water Filler Name Role Phone Amena Kaplan MD [...] patient's age to complete this topic IPV VACCINES Aged Out No longer eligi ble [...] EST) SODIUM 135(L) 136 - 145 mmol/L [facility] LIC# [id number] POTASSIUM 4.1 3.4 - 5.1 mmol/L [facility] LIC# [id number] CHLORIDE 101 98 - 107 mmol/L [facility] LIC# [id number] CO2 29 22 - 31 mmol/L [facility] LIC# [id number] BUN 13 6 - 23 mg/dL [facility] LIC# [id number] CREATININE 0.79 0.50 - 1.20 mg/dL [facility] LIC# [id number] GLUCOSE 99 70 - 100 mg/dL [facility] LIC# [id number] ALBUMIN 3.0(L) 3.5 - 5.2 g/dL [facility] LIC# [id number] TOTAL PROTEIN 7.9 6.4 - 8.3 g/dL [facility] LIC# [id number] CALCIUM 8.8 8.8 - 10.7 mg/dL [facility] LIC# [id number] ALKALINE PHOSPHATASE 75 40 - 129 U/L [facility] LIC# [id number] TOTAL BILIRUBIN 0.3 0.2 - 1.2 mg/dL [facility] LIC# [id number] AST 16 <41 U/L [facility] LIC# [id number] ALT 24 <42 U/L [facility] LIC# [id number] GLOBULIN 4.9(H) 1.9 - 4.1 g/dL [facility] LIC# [id number] EGFR 89 >59 mL/min/1.7 3m2 [facility] LIC# [id number] Comment:If patient is Tara n-Nepalese, multiply result by 1.159. Estimated glomerular filtration rate calculated using the CKD-EPI equation. ANION GAP 5(L) 7 - 17 mmol/L [facility] LIC# [id number] Blood 12/19/2019 1:58 PM EST 12/19/2019 2:12 PM EST us Abel Jin MD LAB BLOOD BKR ORDERABLES Fi nal Result [facility] LIC# [id number] [address] [place] [address] from Last 3 Months or Most Recently Relevant to Health Maintenance Insurance GENERIC MEDICARE REPLACEMENT GENERIC MEDICARE REPLACEMENT GENERIC MEDICARE REPLACEMENT GENERIC MEDICARE REPLACEMENT GENERIC MEDICARE REPLACEMENT GENERIC MEDICARE REPLACEMENT GENERIC MEDICARE REPLACEMENT GENERIC MEDICARE REPLACEMENT GENERIC MEDICARE REPLACEMENT Care Teams Air And Water Filler Relationship Specialty Start Date End Date Amena Kaplan MD [address] [address] PCP - General Internal Medicine 12/19/19 Additional Source Comments The information contained in this document represents components of the legal health record. It is not the complete legal health record.[facility]
[2025-09-22 00:14] LABS: Troponin-I High Sensitivity < 2.7 ng/L (<3.5-35.0)
[2025-09-22 00:31] VITALS: BP 124/83; PULSE 70; RESP 18; TEMP 36.7; O2SAT 97
== END 2025-09-22 00:31 | disposition home or self-care (01) ==
PROVIDERS: Physician Assistant; Emergency Provider Emergency Medicine Emergency Medical Services
DX: R07.89 Other chest pain (principal); R12 Heartburn; K21.9 Gastro-esophageal reflux disease without esophagitis; R11.0 Nausea; I25.10 Atherosclerotic heart disease of native coronary artery without angina pectoris; Z79.899 Other long term (current) drug therapy
CPT/HCPCS: 36415; 71045; 80053; 83690; 84484; 85025; 93005; 99285

== ENCOUNTER → 2025-09-21 19:47 | Outpatient (BNV) | payer MEDICARE, SELFPAY | PROVIDERS: Emergency Provider Emergency Medicine Emergency Medical Services; Visit Provider Internal Medicine Cardiovascular Disease | DX: I49.1 Atrial premature depolarization (principal) | CPT/HCPCS: 93010 ==

== ENCOUNTER → 2025-09-21 23:18 | Outpatient (BNV) | payer MEDICARE, SELFPAY | PROVIDERS: Emergency Provider Emergency Medicine Emergency Medical Services; Visit Provider Radiology Diagnostic Radiology | DX: R91.8 Other nonspecific abnormal finding of lung field (principal) | CPT/HCPCS: 71045 ==

== ENCOUNTER → 2025-09-25 07:51 | Outpatient (REF) | payer MEDICARE, SELFPAY ==
--- NOTE | 2025-09-25 07:53 | CA_ITS ---
Transthoracic Echocardiogram Patient (Last, First, Middle): Hussein Castellano D Gender: M Date of : 1945 Age: 79 Procedure Date: 09/25/2025 Procedure Type: Transthoracic Echocardiogram Location: OP Height: 172. cm Weight: 70.31 kg BSA: 1.83 m2 Heart Rate: 79 bpm BP: 128 / 60 mmHg Dye Padder Operator: ZENIA Referring MD: Екатерина Beach MD Symptoms: Multiple [id number] Study Quality: Adequate. Limited per order ECG Rhythm: Atrial Fibrillation Conclusions: - The left ventricular systolic function is mild to moderately decreased. The visually estimated ejection fraction is between 40-45%. Findings Left Ventricle Normal left ventricular cavity size. There is mildly increased left ventricular wall thickness. The left ventricular systolic function is mild to moderately decreased. The visually estimated ejection fraction is between 40-45%. Venous The inferior vena cava is normal in size and collapses greater than 50% with inspiration. Prior Study Comparison No significant change compared to prior study dated: 06/23/2025. Measurements 2D Linear Measurements IVSd: 1.10 0.6-0.9/0.6-1.0 cm LVIDd: 4.89 3.9-5.3/4.2-5.9 cm LVIDd Index: 2.67 2.4-3.2/2.2-3.1 cm/m2 LVIDs: 3.24 2.0-3.6 cm LVPWd: 1.18 0.7-1.1 cm LV Mass: 261.74 67-162/88-224 g LV Mass Index: 143.03 43-95/49-115 g/m2 LVOT Diam: 2.10 3.0+(-)1.3 cm 2D Systolic Function EF 4C: 46.40 >55% EF 2C: 41.00 >55% EF BiP: 44.00 >55% Mitral Valve MV Pk E: 0.57 MV PK A: 0.74 MV Decel Time: 304.00 E/A: 0.80 E'Lateral: 4.73 E'Medial: 4.60 E/E' Med: 12.30 E/E' Lat: 12.00 PHT: 89.00 MVA PHT: 2.47 Decel Archuleta: 1.86 LVOT LVOT Pk Khang: 0.64 LVOT Mn Khang: 0.49 LVOT VTI: 0.13 LVOT Pk Grad: 2.00 LVOT Mn Grad: 1.00 LVOT Diam: 2.10 LVOT Area: 3.46 Diastolic Function MV Pk E: 0.57 MV Pk A: 0.74 E/A: 0.80 E'Medial: 4.60 E/E' Med: 12.30 E' Laterial: 4.73 E/E' Lat: 12.00 Updated in Other Vendor System with Status of Final Fer Allen MD electronically signed on 09/25/2025 11:20:07 AM with status of Final
--- OUTSIDE RECORDS SUMMARY | 2025-09-25 08:48 | XMS_ITS | Clinical Summary ---
Author Organization Patient Business Ser [facility] Address [address] [place] [address] Care Team Providers Care Hr Leader Name Role Phone Lita Hill Primary Care Provider [phone] Encounters Date Type Department Care Team Description 08/02/2025 8:09 AM EDT - 08/02/2025 11:59 PM EDT Hospital Encounter [facility] PET Scan [address] [place] [address] Multiple myeloma not having achieved [...] EDT Multiple myeloma not having achieved remission ([facility] V24, [facility] V28) from Last 3 Months [...] Signed Date: 08/03/2025 16:04 ET Workstation ID: [id number] Transcribed By: Self Edit Transcribed Date: 08/03/2025 [...] Signed Date: 08/03/2025 16:04 ET Workstation ID: [id number] Transcribed By: Self Edit Transcribed Date: 08/03/2025 15:59 ET us Andrea Beach MD IMG NM PROCEDURES Final Result from Last 3 Months Insurance [employer] Care Teams Hr Leader Relationship Specialty Start Date End Date iLta Hill [address] [place] [id number] PCP - General 03/11/18
--- OUTSIDE RECORDS SUMMARY | 2025-09-25 08:49 | XMS_ITS | Patient Health Record ---
Author Organization [facility] Address [address] [place] [address] Care Team Providers Care Hosiery Bagger Name Role Phone CLIFF LINTON Primary Care Provider Ana Madsen Unavailable [phone] Allergies Allergen (clinical drug ingredient) Drug/Non Drug Allergy documented on EMR Reaction Allergy Type Onset Date Status oxycodone oxycodone (uncoded) n/v severe Allergy Active Reason For Referral No Information Medications Medication SIG (Take, Route, Frequency, Duration) Notes Start Date End Date Status amLODIPine Besylate 10 MG Tablet 1 tablet Orally Once a day Active Velcade Not-Taking / PRN Metoprolol Succinate ER 100 MG Tablet Extended Release 24 Hour 1 tablet Orally Once a day Active Zometa Not-Taking / PRN hydroCHLOROthiazide 25 MG Tablet 1 tablet in the morning Orally Once a day Active Acyclovir 400 MG Tablet 1 capsule Orally as directed Active Lisinopril 5 MG Tablet 1 tablet Orally Once a day Active Multivitamin Active Pantoprazole Sodium 40 MG Tablet Delayed Release 1 tablet Orally Once a day Active Vitamin K2 Active Atorvastatin Calcium 40 MG Tablet 1 tablet Orally Once a day Active Ondansetron Active Denosumab 60 MG/ML Solution as directed Subcutaneous once per month Prolia-oste oporosis Active Calcium Active Docusate Sodium 100 MG Capsule 1 capsule as needed Orally Once a day; Duration: 30 day(s) Active Vitamin D3 Active Fish Oil Active Darzalex 100 MG/5ML Solution as directed Intravenous weekly chemo Active Multivitamin Active Decadron 24 MG/ML Solution as directed Intravenous Weekly For chemo Active Aspirin 81 Active Carfilzomib 60 MG Solution Reconstituted as directed Intravenous weekly chemo Active Immunizations Vaccine Route Administration Date Status Comme nts Influenza Unknown 05/04/2020 Refused Influenza Unknown 07/10/2021 Administered Social History Tobacco Use: Social History Observation Description Date Details (start date - stop date) Former Smoker NA - NA Social History Drugs/Alcohol: Social Info Question Answer Notes Alcohol Screen Did you have a drink containing alcohol in the past year? No Points 0 Interpretation Negative Tobacco Use: Social Info Question Answer Notes Tobacco Use/Smoking Patient is a former smoker When did you stop smoking? 2010 How long has it been since you last smoked? > 10 years Additional Details Category Social Info Options Details Miscellaneous: Marital status: Section Notes: Nonsmoker; no sig alcohol Nonsmoker; no sig alcohol Problems Problem Type SNOMED Code ICD Code Onset Dates Problem Status W/U Status Risk Notes Problem Screening for malignant neoplasm of colon (302969295) Encounter for screening for malignant neoplasm of colon (Z12.11) Active confirmed Problem Nausea and vomiting (27859331) Nausea with vomiting, unspecified (R11.2) Active confirmed Problem Preprocedural examination (081027014460889) Preprocedural examination (Z01.818) Active confirmed Problem Constipation (23187918) Constipation, unspecified constipation type (K59.00) Active confirmed Plan Of Treatment No Information Insurance Providers Payer Name Payer Address Payer Phone Subscriber Number Group Number Insured Name Patient Relationship to Insured Coverage Start Date Coverage End Date [facility] [address] [place] [phone] [id number] ANA ORTIZ Self - patient is the insured Medical (General) History Medical History History ICD Code Emphysema-mild Denies PR,DM,CVA,renal disease Arthritis Multiple myeloma 10/2019--sees Dr. Chacorta mendez for chemotherapy HTN Neg. colonoscopy in 08/2009 Hyperlipidemia Abdominal aortic aneurysm with treatment as below Surgical History Surgery Date(Month/Year) Lumbar surgery - Dr. De La Paz 2007 [place] [facility] [place]se[place] Dr. Galeano now 2009 Hernia repairs- left inguinal and umbili broderick
--- OUTSIDE RECORDS SUMMARY | 2025-09-25 08:49 | XMS_ITS | Clinical Summary ---
Author Organization [facility] Address [address] [place] [address] Phone Care Team Providers Care Cfo Name Role Phone Amena Kaplan MD Primary [...] EST) SODIUM 135(L) 136 - 145 mmol/L [facility] LIC# [id number] POTASSIUM 4.1 3.4 - 5.1 mmol/L [facility] LIC# [id number] CHLORIDE 101 98 - 107 mmol/L [facility] LIC# [id number] CO2 29 22 - 31 mmol/L [facility] LIC# [id number] BUN 13 6 - 23 mg/dL [facility] LIC# [id number] CREATININE 0.79 0.50 - 1.20 mg/dL [facility] LIC# [id number] GLUCOSE 99 70 - 100 mg/dL [facility] LIC# [id number] ALBUMIN 3.0(L) 3.5 - 5.2 g/dL [facility] LIC# [id number] TOTAL PROTEIN 7.9 6.4 - 8.3 g/dL [facility] LIC# [id number] CALCIUM 8.8 8.8 - 10.7 mg/dL [facility] LIC# [id number] ALKALINE PHOSPHATASE 75 40 - 129 U/L [facility] LIC# [id number] TOTAL BILIRUBIN 0.3 0.2 - 1.2 mg/dL [facility] LIC# [id number] AST 16 <41 U/L [facility] LIC# [id number] ALT 24 <42 U/L [facility] LIC# [id number] GLOBULIN 4.9(H) 1.9 - 4.1 g/dL [facility] LIC# [id number] EGFR 89 >59 mL/min/1.7 3m2 [facility] LIC# [id number] Comment:If patient is Tara n-Algerian, multiply result by 1.159. Estimated glomerular filtration rate calculated using the CKD-EPI equation. ANION GAP 5(L) 7 - 17 mmol/L [facility] LIC# [id number] Blood 12/19/2019 1:58 PM EST 12/19/2019 2:12 PM EST us Abel Jin MD LAB BLOOD BKR ORDERABLES Fi nal Result [facility] LIC# [id number] [address] [place] [address] from Last 3 Months or Most Recently Relevant to Health Maintenance Insurance GENERIC MEDICARE REPLACEMENT GENERIC MEDICARE REPLACEMENT GENERIC MEDICARE REPLACEMENT GENERIC MEDICARE REPLACEMENT GENERIC MEDICARE REPLACEMENT GENERIC MEDICARE REPLACEMENT GENERIC MEDICARE REPLACEMENT GENERIC MEDICARE REPLACEMENT GENERIC MEDICARE REPLACEMENT Care Teams Cfo Relationship Specialty Start Date End Date Amena Kaplan MD [address] [place] [address] PCP - General Internal Medicine 12/19/19 Additional Source Comments The information contained in this document represents components of the legal health record. It is not the complete legal health record.[facility]
--- OUTSIDE RECORDS SUMMARY | 2025-09-25 08:49 | XMS_ITS | Clinical Summary ---
Author Organization [address] Address [address] [place] [address] Phone Care Team Providers Care Program Officer Name Role Phone Tho Cruz NP Primary [...] EDT [facility] eGFR (-TRINIDADIAN) >60 >60 mL/min/1. 73m2 05/07/2021 3:12 AM EDT [facility] eGFR (NON -Anguillan) >60 >60 mL/min/1. 73m2 05/07/2021 3:12 AM [...] mmol/L 05/07/2021 3:12 AM EDT L + [facility] Calcium 8.5 8.5 - 10.1 mg/dL 05/07/2021 3:12 AM EDT [facility] Blood Venipuncture / Unknown 05/07/2021 2:40 AM EDT 05/07/2021 2:44 AM EDT Vishnu Fontanez MD LAB BLOOD ORDERABLES Fin al Result Performing Organization Address [facility]/State/[facility] Co de Phone Number [facility] [address] [place] [address] from Last 3 Months or Most Recently Relevant to Health Maintenance Insurance [place]ICARE [place] [facility] [place] [facility] [place] [facility] [place] Care Teams Program Officer Relationship Specialty Start Date End Date Tho Cruz NP [address] [place] [address] PCP - General Family Medicine 05/07/21
== END ==
LOC: HO.CARD 07:51
PROVIDERS: Visit Provider Internal Medicine Medical Oncology
DX: C90.00 Multiple myeloma not having achieved remission (principal)
CPT/HCPCS: 93308

== ENCOUNTER → 2025-09-25 07:53 | Outpatient (BNV) | payer MEDICARE, SELFPAY | PROVIDERS: Visit Provider Internal Medicine | DX: Z51.81 Encounter for therapeutic drug level monitoring (principal); C90.00 Multiple myeloma not having achieved remission | CPT/HCPCS: 93308 ==

== ENCOUNTER 2025-09-28 06:16 | Outpatient (REF) | payer MEDICARE, SELFPAY ==
--- OUTSIDE RECORDS SUMMARY | 2025-09-28 06:19 | XMS_ITS | Clinical Summary ---
Author Organization [facility] Address [address] [place] [address] Phone Care Team Providers Care Abattoir Supervisor Name Role Phone Amena Kaplan MD [...] EST) SODIUM 135(L) 136 - 145 mmol/L [facility] LIC# [id number] POTASSIUM 4.1 3.4 - 5.1 mmol/L [facility] LIC# [id number] CHLORIDE 101 98 - 107 mmol/L [facility] LIC# [id number] CO2 29 22 - 31 mmol/L [facility] LIC# [id number] BUN 13 6 - 23 mg/dL [facility] LIC# [id number] CREATININE 0.79 0.50 - 1.20 mg/dL [facility] LIC# [id number] GLUCOSE 99 70 - 100 mg/dL [facility] LIC# [id number] ALBUMIN 3.0(L) 3.5 - 5.2 g/dL [facility] LIC# [id number] TOTAL PROTEIN 7.9 6.4 - 8.3 g/dL [facility] LIC# [id number] CALCIUM 8.8 8.8 - 10.7 mg/dL [facility] LIC# [id number] ALKALINE PHOSPHATASE 75 40 - 129 U/L [facility] LIC# [id number] TOTAL BILIRUBIN 0.3 0.2 - 1.2 mg/dL [facility] LIC# [id number] AST 16 <41 U/L [facility] LIC# [id number] ALT 24 <42 U/L [facility] LIC# [id number] GLOBULIN 4.9(H) 1.9 - 4.1 g/dL [facility] LIC# [id number] EGFR 89 >59 mL/min/1.7 3m2 [facility] LIC# [id number] Comment:If patient is Tara n-Angolan, multiply result by 1.159. Estimated glomerular filtration rate calculated using the CKD-EPI equation. ANION GAP 5(L) 7 - 17 mmol/L [facility] LIC# [id number] Blood 12/19/2019 1:58 PM EST 12/19/2019 2:12 PM EST us Abel Jin MD LAB BLOOD BKR ORDERABLES Fi nal Result [facility] LIC# [id number] [address] [place] [address] from Last 3 Months or Most Recently Relevant to Health Maintenance Insurance GENERIC MEDICARE REPLACEMENT GENERIC MEDICARE REPLACEMENT GENERIC MEDICARE REPLACEMENT GENERIC MEDICARE REPLACEMENT GENERIC MEDICARE REPLACEMENT GENERIC MEDICARE REPLACEMENT GENERIC MEDICARE REPLACEMENT GENERIC MEDICARE REPLACEMENT GENERIC MEDICARE REPLACEMENT Care Teams Abattoir Supervisor Relationship Specialty Start Date End Date Amena Kaplan MD [address] [place] [address] PCP - General Internal Medicine 12/19/19 Additional Source Comments The information contained in this document represents components of the legal health record. It is not the complete legal health record.[facility]
--- OUTSIDE RECORDS SUMMARY | 2025-09-28 06:19 | XMS_ITS | Patient Health Record ---
Author Organization [facility] Address [address] [place] [address] Care Team Providers Care Plant Floor Automation Manager Name Role Phone CLIFF LINTON Primary Care Provider Ana Madsen Unavailable [phone] Allergies Allergen (clinical drug ingredient) Drug/Non Drug [...] Problem Screening for malignant neoplasm of colon (665043990) Encounter for screening for malignant neoplasm of colon (Z12.11) Active confirmed Problem Nausea and vomiting (82358380) Nausea with vomiting, unspecified (R11.2) Active confirmed Problem Preprocedural examination (458500064975729) Preprocedural examination (Z01.818) Active confirmed Problem Constipation (70937918) Constipation, unspecified constipation type (K59.00) Active confirmed Plan Of Treatment No Information Insurance Providers Payer Name Payer Address Payer Phone Subscriber Number Group Number Insured Name Patient Relationship to Insured Coverage Start Date Coverage End Date [facility] [address] [place] [phone] [id number] ANA ORTIZ Self - patient is the insured Medical (General) History Medical History History ICD Code Emphysema-mild Denies DE,DM,CVA,renal disease Arthritis Multiple myeloma 10/2019--sees Dr. Chacorta [...]
--- OUTSIDE RECORDS SUMMARY | 2025-09-28 06:19 | XMS_ITS | Clinical Summary ---
Author Organization [address] Address [address] [place] [address] Phone Care Team Providers Care Food Management Aide Name Role Phone Tho Cruz NP Primary [...] EDT [facility] eGFR (-OMANI) >60 >60 mL/min/1. 73m2 05/07/2021 3:12 AM EDT [facility] eGFR (NON -Faroese) >60 >60 mL/min/1. 73m2 05/07/2021 3:12 AM [...] mmol/L 05/07/2021 3:12 AM EDT L + [facility] Calcium 8.5 8.5 - 10.1 mg/dL 05/07/2021 3:12 AM EDT [facility] Blood Venipuncture / Unknown 05/07/2021 2:40 AM EDT 05/07/2021 2:44 AM EDT Vishnu Fontanez MD LAB BLOOD ORDERABLES Fin al Result Performing Organization Address [facility]/State/[facility] Co de Phone Number [facility] [address] [place] [address] from Last 3 Months or Most Recently Relevant to Health Maintenance Insurance MEDICARE MANAG[place] [facility] [place] MEDICARE [place] [facility] [place] MEDICARE [place] [facility] [place] Care Teams Food Management Aide Relationship Specialty Start Date End Date Tho Cruz NP [address] [place] [address] PCP - General Family Medicine 05/07/21
[2025-09-28 06:32] LABS: MANUAL DIFF FLAG NO
[2025-09-28 06:33] LABS: Hematocrit 41.2 % (42.0-52.0); Hemoglobin 13.6 g/dl (14.0-18.0); Imm Gran Abs Auto 0.01 X10*3/uL (0.00-0.03); Imm Gran Pct Auto 0.2 % (0.0-0.4); Lymphocytes Absolute Auto 0.8 X10*3/uL (1.2-4.9); Mean Corpuscular HGB Conc 33.0 g/dl (31.0-36.0); Mean Corpuscular Hemoglobin 32.6 pg (27.0-33.0); Mean Corpuscular Volume 98.8 fL (80.0-98.0); NRBC Abs Auto 0.000 X10*3/uL (0.0-0.012); NRBC Pct Auto 0.0 /100WBC (0.0-0.2); Platelet Count 164 X10*3/uL (160-400); Red Blood Count 4.17 X10*6/uL (4.60-5.80); White Blood Count 4.5 X10*3/uL (4.8-10.8)
[2025-09-28 07:10] LABS: Alanine Aminotransferase 11 U/L (0-40); Albumin Level 4.3 g/dL (3.5-5.0); Alkaline Phosphatase 73 U/L (39-117); Anion Gap 11 (12-20); Aspartate Amino Transferase 17 U/L (5-37); Blood Urea Nitrogen 15 mg/dL (9-16); Calcium 9.2 mg/dL (8.4-10.2); Carbon Dioxide 29 mmol/L (22-29); Chloride 108 mmol/L (96-108); Estimated Glomerular Filt Rate > 60; Potassium 3.9 mmol/L (3.3-5.1); Sodium 144 mmol/L (135-145); Total Protein 5.8 g/dL (6.5-8.0)
== END 2025-09-28 06:17 | disposition home or self-care (01) ==
LOC: HO.LAB 06:16
PROVIDERS: PCP Nurse Practitioner Family; Visit Provider Internal Medicine Medical Oncology
DX: C90.00 Multiple myeloma not having achieved remission (principal)
CPT/HCPCS: 36415; 80053; 85025

== ENCOUNTER 2025-10-02 13:57 | Outpatient (AMB) | payer MEDICARE, SELFPAY ==
--- NOTE | 2025-10-02 14:01 | A.OFFVIS_ITS ---
Vital Signs 10/02/25 14:12 Height 5 ft 8 in Weight 150 lb BMI 22.8 BP 133/61 Blood Pressure Location Lt brachial Position Sitting Pulse 68 Intake Visit Reasons: ? hernia (R) side Intake Note: Patient is seen in office for evaluation of a possible right groin hernia. Pt c/o: per pt has discomfort on the right groin, did go to walk-in and was given a trust and the pressure helps with the pain, admits to constipation- goes every other day, not fully empty, scare to strain and create more issues Transformer Shop Supervisor Required: No Accompanied by: Self / Same As Patient Allergies No Known Allergies Allergy (Verified 10/02/25 14:11) Medication List - Last Reconciled 10/02/25 by Tho Sanchez MD acyclovir 400 mg PO DAILY amlodipine (Norvasc) 10 mg PO DAILY aspirin 81 mg PO DAILY MDD 81 atorvastatin 40 mg PO MOWEFR@2100 finasteride 2.5 mg PO MOWEFR@0900 hydrochlorothiazide 25 mg PO DAILY lisinopril 5 mg PO DAILY metoprolol succinate ER 100 mg PO DAILY quomx-2u-nyh-epa-fish oil 300-1,000 mg ([place]-3 Fish Oil) 1 cap PO BEDTIME omeprazole 20 mg PO DAILY vitamin D3-vitamin K2 137.5-200 mcg 1 tab PO DAILY HPI Comments Details: 79-year-old male patient with a history of left inguinal hernia repair on 08/27/2025 for an incarcerated hernia now presenting for evaluation of a right- sided inguinal hernia. He began to note some pain in the right side postoperatively which was initially mild. Over time it became more severe especially with standing and walking. He subsequently purchased a truss for the right side which improved his symptoms. He also notes swelling in the left side of the testicle following the surgery which he feels may be causing some difficulty in urinating. The area of swelling has persisted only on the left side. He does report constipation but subsequently took a stool softener was able to eliminate a large amount of stool with significant relief of his symptoms. He denies any nausea, vomiting, fever or chills. Denies any previous history of right inguinal hernia surgery. [facility] Medical History Incarcerated hernia HTN (hypertension) Pneumonia Statin intolerance HTN (hypertension) AAA (abdominal aortic aneurysm) Vitamin D deficiency Subclinical hyperthyroidism Multinodular thyroid Pancytopenia Leukopenia Multiple myeloma Surgical History S/P left inguinal hernia repair Hx of hernia repair (07/08/18) History of bone marrow biopsy Hx of tooth extraction History of back surgery Hx of umbilical hernia repair (06/28/13) History of AAA (abdominal aortic aneurysm) repair Family History Father CVD (cardiovascular disease) AAA (abdominal aortic aneurysm) Mother Stomach cancer Social History Household Members: Spouse Housing: House Are you a primary laboratory animal caretaker to a significant other at home: No Do you presently have visiting nurse or other home services: No Alcohol intake: former Comment: Patient refuses bed alarm Patient Tobacco Use Status: Former Tobacco user Years Smoked: 38 e-Cigarette/Vaping Use: Never Used Second Hand Smoke Exposure: No Special tiesha needs: No Agree to transfusion: Yes Advance Directives Date on File: 01/11/21 service: No Current occupational status: employed and retired Cognitive needs: No Hearing needs: No Vision needs: No Review of Systems Const All systems reviewed & are unremarkable except as noted in HPI and below Physical Exam Vital Signs: Last Vital Signs Pulse 68 10/02/25 14:12 BP 133/61 10/02/25 14:12 BMI result Body Mass Index 22.8 Const General: no acute distress Nutritional Appearance: well nourished Resp Effort & Inspection: normal respiratory effort, no audible wheezes, no cough and no respiratory distress GI Other: Examination in the standing position does reveal swelling in the right groin which increases in size with Valsalva maneuvers but then reduces with light pressure. Findings are consistent with a direct right inguinal hernia. Examination of left groin reveals a well-healed incision with no evidence of hernia recurrence. There is swelling in the left testicle suggestive of a hydrocele. Testicle otherwise feels normal on both sides. Extrem Other: No edema Assessment & Plan Assessment & Plan (1) Testicular swelling, left: Code(s): N50.89 - Other specified disorders of the male genital organs Category: Medical (2) Reducible right inguinal hernia: Code(s): K40.90 - Unilateral inguinal hernia, without obstruction or gangrene, not specified as recurrent Category: Medical Plan 71-year-old male patient with a long history of previous left inguinal hernias now presenting with a evidence of a right inguinal hernia. On examination the hernias easily reducible and fairly small. He is currently wearing truss which seems to be holding hernia in just fine. He also was noted to have possible hydrocele in the left scrotum therefore I recommended further evaluation with an ultrasound. We discussed repair of the right inguinal hernia with mesh as well. I will await the findings of the ultrasound call the patient with the results at which time we can decide on the timing for repair of the right inguinal hernia. He expressed understanding and agrees with the plan. Orders: Orders US scrotum Today N50.89 - Other specified disorders of the male genital organs Coding Level of Care Code Est Pt Level 3 (92659) Diagnoses Testicular swelling, left N50.89 Reducible right inguinal hernia K40.90
[2025-10-02 14:12] VITALS: BP 133/61; PULSE 68; BMI 22.8
--- OUTSIDE RECORDS SUMMARY | 2025-10-02 18:52 | XMS_ITS | Clinical Summary ---
Author Organization [facility] Address [address] [place] [address] Phone Care Team Providers Care Transitions Rn Care Coordinator Name Role Phone Amena Kaplan MD Primary [...] EST) SODIUM 135(L) 136 - 145 mmol/L [facility] LIC# [id number] POTASSIUM 4.1 3.4 - 5.1 mmol/L [facility] LIC# [id number] CHLORIDE 101 98 - 107 mmol/L [facility] LIC# [id number] CO2 29 22 - 31 mmol/L [facility] LIC# [id number] BUN 13 6 - 23 mg/dL [facility] LIC# [id number] CREATININE 0.79 0.50 - 1.20 mg/dL [facility] LIC# [id number] GLUCOSE 99 70 - 100 mg/dL [facility] LIC# [id number] ALBUMIN 3.0(L) 3.5 - 5.2 g/dL [facility] LIC# [id number] TOTAL PROTEIN 7.9 6.4 - 8.3 g/dL [facility] LIC# [id number] CALCIUM 8.8 8.8 - 10.7 mg/dL [facility] LIC# [id number] ALKALINE PHOSPHATASE 75 40 - 129 U/L [facility] LIC# [id number] TOTAL BILIRUBIN 0.3 0.2 - 1.2 mg/dL [facility] LIC# [id number] AST 16 <41 U/L [facility] LIC# [id number] ALT 24 <42 U/L [facility] LIC# [id number] GLOBULIN 4.9(H) 1.9 - 4.1 g/dL [facility] LIC# [id number] EGFR 89 >59 mL/min/1.7 3m2 [facility] LIC# [id number] Comment:If patient is Tara n-Brazilian, multiply result by 1.159. Estimated glomerular filtration rate calculated using the CKD-EPI equation. ANION GAP 5(L) 7 - 17 mmol/L [facility] LIC# [id number] Blood 12/19/2019 1:58 PM EST 12/19/2019 2:12 PM EST us Abel Jin MD LAB BLOOD BKR ORDERABLES Fi nal Result [facility] LIC# [id number] [address] [place] [address] from Last 3 Months or Most Recently Relevant to Health Maintenance Insurance GENERIC MEDICARE REPLACEMENT GENERIC MEDICARE REPLACEMENT GENERIC MEDICARE REPLACEMENT GENERIC MEDICARE REPLACEMENT GENERIC MEDICARE REPLACEMENT GENERIC MEDICARE REPLACEMENT GENERIC MEDICARE REPLACEMENT GENERIC MEDICARE REPLACEMENT GENERIC MEDICARE REPLACEMENT Care Teams Transitions Rn Care Coordinator Relationship Specialty Start Date End Date Amena Kaplan MD [address] [place] [address] PCP - General Internal Medicine 12/19/19 Additional Source Comments The information contained in this document represents components of the legal health record. It is not the complete legal health record.[facility]
--- OUTSIDE RECORDS SUMMARY | 2025-10-02 18:52 | XMS_ITS | Clinical Summary ---
Author Organization Patient Business Ser [facility] Address [address] [place] [address] Care Team Providers Care Warehouse Receiving Supervisor Name Role Phone Lita Hill Primary Care Provider [phone] Encounters Date Type Department Care Team Description 08/02/2025 8:09 AM EDT - 08/02/2025 11:59 PM EDT Hospital Encounter [facility] PET Scan [address] [place] [address] Multiple myeloma not having achieved [...] EDT Multiple myeloma not having achieved remission ([facility] V24, [facility] V28) from Last 3 Months Results * [...] Signed Date: 08/03/2025 16:04 ET Workstation ID: [id number] Transcribed By: Self Edit Transcribed Date: 08/03/2025 [...] Signed Date: 08/03/2025 16:04 ET Workstation ID: [id number] Transcribed By: Self Edit Transcribed Date: 08/03/2025 15:59 ET us Andrea Beach MD IMG NM PROCEDURES Final Result from Last 3 Months Insurance [employer] Care Teams Warehouse Receiving Supervisor Relationship Specialty Start Date End Date Lita Hill [address] [place] [phone] PCP - General 03/11/18
--- OUTSIDE RECORDS SUMMARY | 2025-10-02 18:52 | XMS_ITS | Clinical Summary ---
Author Organization [address] Address [address] [place] [address] Phone Care Team Providers Care Urban Renewal Manager Name Role Phone Tho Cruz NP [...] EDT [facility] eGFR (-RWANDAN) >60 >60 mL/min/1. 73m2 05/07/2021 3:12 AM EDT [facility] eGFR (NON -Somali) >60 >60 mL/min/1. 73m2 05/07/2021 3:12 AM [...] ORDERABLES Fin al Result Performing Organization Address [facility]/State/[facility] Co de Phone Number [facility] [address] [place] [address] from Last 3 Months or Most Recently Relevant to Health Maintenance Insurance MEDICARE [place] [facility] [place] [facility] [place] [facility] Care Teams Urban Renewal Manager Relationship Specialty Start Date End Date Tho Cruz NP [address] [place] [address] PCP - General Family Medicine 05/07/21
== END 2025-10-02 14:39 | disposition home or self-care (01) ==
LOC: HO.HGS 13:57
PROVIDERS: PCP Nurse Practitioner Family; Visit Provider Surgery
DX: N50.89 Other specified disorders of the male genital organs (principal); K40.90 Unilateral inguinal hernia, without obstruction or gangrene, not specified as recurrent
CPT/HCPCS: 99024

== ENCOUNTER → 2025-10-02 13:57 | Outpatient (BNVA) | payer MEDICARE, SELFPAY | PROVIDERS: PCP Nurse Practitioner Family; Visit Provider Surgery | DX: K40.90 Unilateral inguinal hernia, without obstruction or gangrene, not specified as recurrent (principal); N50.89 Other specified disorders of the male genital organs | CPT/HCPCS: 99212 ==

== ENCOUNTER 2025-10-12 06:31 | Outpatient (REF) | payer MEDICARE, SELFPAY ==
--- OUTSIDE RECORDS SUMMARY | 2025-10-12 06:33 | XMS_ITS | Clinical Summary ---
Author Organization Patient Business Ser [facility] Address [address] [place] [address] Care Team Providers Care Documentation Nurse Name Role Phone Lita Hill Primary Care Provider [phone] Encounters Date Type Department Care Team Description 08/02/2025 8:09 AM EDT - 08/02/2025 11:59 PM EDT Hospital Encounter [facility] PET Scan [address] [place] [address] Multiple myeloma not having achieved [...] EDT Multiple myeloma not having achieved remission ([facility] [place] V24, [facility] V28) from Last 3 Months Results [...] Signed Date: 08/03/2025 16:04 ET Workstation ID: [id number] Transcribed By: Self Edit Transcribed Date: 08/03/2025 [...] Signed Date: 08/03/2025 16:04 ET Workstation ID: [id number] Transcribed By: Self Edit Transcribed Date: 08/03/2025 15:59 ET us Andrea Beach MD IMG NM PROCEDURES Final Result from Last 3 Months Insurance [employer] Care Teams Documentation Nurse Relationship Specialty Start Date End Date Lita Hill [address] [place] [phone] PCP - General 03/11/18
--- OUTSIDE RECORDS SUMMARY | 2025-10-12 06:34 | XMS_ITS | Clinical Summary ---
Author Organization [facility] Address [address] [place] [address] Phone Care Team Providers Care Metal Products Fabricator Assembler Name Role Phone Amena Kaplan MD Primary [...] EST) SODIUM 135(L) 136 - 145 mmol/L [facility] LIC# [id number] POTASSIUM 4.1 3.4 - 5.1 mmol/L [facility] LIC# [id number] CHLORIDE 101 98 - 107 mmol/L [facility] LIC# [id number] CO2 29 22 - 31 mmol/L [facility] LIC# [id number] BUN 13 6 - 23 mg/dL [facility] LIC# [id number] CREATININE 0.79 0.50 - 1.20 mg/dL [facility] LIC# [id number] GLUCOSE 99 70 - 100 mg/dL [facility] LIC# [id number] ALBUMIN 3.0(L) 3.5 - 5.2 g/dL [facility] LIC# [id number] TOTAL PROTEIN 7.9 6.4 - 8.3 g/dL [facility] LIC# [id number] CALCIUM 8.8 8.8 - 10.7 mg/dL [facility] LIC# [id number] ALKALINE PHOSPHATASE 75 40 - 129 U/L [facility] LIC# [id number] TOTAL BILIRUBIN 0.3 0.2 - 1.2 mg/dL [facility] LIC# [id number] AST 16 <41 U/L [facility] LIC# [id number] ALT 24 <42 U/L [facility] LIC# [id number] GLOBULIN 4.9(H) 1.9 - 4.1 g/dL [facility] LIC# [id number] EGFR 89 >59 mL/min/1.7 3m2 [facility] LIC# [id number] Comment:If patient is Tara n-English, multiply result by 1.159. Estimated glomerular filtration rate calculated using the CKD-EPI equation. ANION GAP 5(L) 7 - 17 mmol/L [facility] LIC# [id number] Blood 12/19/2019 1:58 PM EST 12/19/2019 2:12 PM EST Abel Jin MD LAB BLOOD BKR ORDERABLES Fi nal Result [facility] LIC# [id number] [address] [place] [address] from Last 3 Months or Most Recently Relevant to Health Maintenance Insurance GENERIC MEDICARE REPLACEMENT GENERIC MEDICARE REPLACEMENT GENERIC MEDICARE REPLACEMENT GENERIC MEDICARE REPLACEMENT GENERIC MEDICARE REPLACEMENT GENERIC MEDICARE REPLACEMENT GENERIC MEDICARE REPLACEMENT GENERIC MEDICARE REPLACEMENT GENERIC MEDICARE REPLACEMENT Care Teams Metal Products Fabricator Assembler Relationship Specialty Start Date End Date Amena Kaplan MD [address] [facility] [place] [address] PCP - General Internal Medicine 12/19/19 Additional Source Comments The information contained in this document represents components of the legal health record. It is not the complete legal health record.[facility]
--- OUTSIDE RECORDS SUMMARY | 2025-10-12 06:34 | XMS_ITS | Clinical Summary ---
Author Organization [address] Address [address] [place] [address] Phone Care Team Providers Care Truck Driver Teamster Name Role Phone Tho Cruz NP Primary [...] EDT [facility] eGFR (-SALVADOREAN) >60 >60 mL/min/1. 73m2 05/07/2021 3:12 AM EDT [facility] eGFR (NON -Argentine) >60 >60 mL/min/1. 73m2 05/07/2021 3:12 AM [...] 05/07/2021 3:12 AM EDT [facility] + [facility] Calcium 8.5 8.5 - 10.1 mg/dL 05/07/2021 3:12 AM EDT [facility] Blood Venipuncture / Unknown 05/07/2021 2:40 AM EDT 05/07/2021 2:44 AM EDT Vishnu Fontanez MD LAB BLOOD ORDERABLES Fin al Result Performing Organization Address [facility]/State/[facility] Co de Phone Number [facility] [address] [place] [address] from Last 3 Months or Most Recently Relevant to Health Maintenance Insurance MEDICARE [facility] [facility] MEDICARE [place] [facility] MEDICARE [place] [facility] Care Teams Truck Driver Teamster Relationship Specialty Start Date End Date Tho Cruz NP [address] [place] [address] PCP - General Family Medicine 05/07/21
--- OUTSIDE RECORDS SUMMARY | 2025-10-12 06:34 | XMS_ITS | Patient Health Record ---
Author Organization [facility] Address [address] [place] [address] Care Team Providers Care Hoop Bender Tank Name Role Phone [place] Primary Care Provider Ana Madsen Unavailable [phone] Allergies Allergen (clinical drug ingredient) Drug/Non Drug [...] Problem Screening for malignant neoplasm of colon (755202852) Encounter for screening for malignant neoplasm of colon (Z12.11) Active confirmed Problem Nausea and vomiting (89874601) Nausea with vomiting, unspecified (R11.2) Active confirmed Problem Preprocedural examination (243437100905863) Preprocedural examination (Z01.818) Active confirmed Problem Constipation (18473147) Constipation, unspecified constipation type (K59.00) Active confirmed Plan Of Treatment No Information Insurance Providers Payer Name Payer Address Payer Phone Subscriber Number Group Number Insured Name Patient Relationship to Insured Coverage Start Date Coverage End Date [facility] [address] [place] [phone] [id number] ANA ORTIZ Self - patient is the insured Medical (General) History Medical History History ICD Code Emphysema-mild Denies OH,DM,CVA,renal disease Arthritis Multiple myeloma 10/2019--sees Dr. Chacorta mendez for chemotherapy HTN Neg. colonoscopy in 08/2009 Hyperlipidemia Abdominal aortic aneurysm with treatment as below Surgical History Surgery Date(Month/Year) Lumbar surgery - Dr. De La Paz 2007 Endovascular graft placement at [facility] for AAA--sees Dr. Galeano now 2009 Hernia repairs- left inguinal and umbili broderick
[2025-10-17 14:04] LABS: Kappa/Lambda Lt Ch Free Ratio >0.73 (0.26-1.65)
== END 2025-10-12 06:32 | disposition home or self-care (01) ==
LOC: HO.HMGCLDS 06:31
PROVIDERS: PCP Nurse Practitioner Family; Visit Provider Internal Medicine Medical Oncology
DX: Z01.84 Encounter for antibody response examination (principal); C90.00 Multiple myeloma not having achieved remission
CPT/HCPCS: 36415; 82784; 83521; 86334

== ENCOUNTER 2025-10-19 06:41 | Day surgery (SDC) | payer MEDICARE, SELFPAY ==
--- OUTSIDE RECORDS SUMMARY | 2025-10-09 17:35 | XMS_ITS | Clinical Summary ---
Author Organization Patient Business Ser [facility] Address [address] [place] [address] Care Team Providers Care Parking Meter Collector Name Role Phone Lita Hill Primary Care Provider [phone] Encounters Date Type Department Care Team Description 08/02/2025 8:09 AM EDT - 08/02/2025 11:59 PM EDT Hospital Encounter [facility] PET Scan [address] [place] [address] Multiple myeloma not having achieved [...] EDT Multiple myeloma not having achieved remission ([facility] V24, [facility] V28) from Last 3 Months Results * [...] Signed Date: 08/03/2025 16:04 ET Workstation ID: [id number] Transcribed By: Self Edit Transcribed Date: 08/03/2025 [...] Signed Date: 08/03/2025 16:04 ET Workstation ID: [id number] Transcribed By: Self Edit Transcribed Date: 08/03/2025 15:59 ET us Andrea Beach MD IMG NM PROCEDURES Final Result from Last 3 Months Insurance [employer] Care Teams Parking Meter Collector Relationship Specialty Start Date End Date Lita Hill [address] [place] [phone] PCP - General 03/11/18
--- OUTSIDE RECORDS SUMMARY | 2025-10-09 17:36 | XMS_ITS | Clinical Summary ---
Author Organization [facility] Address [address] [place] [address] Phone Care Team Providers Care Welding Manager Name Role Phone Amena Kaplan MD Primary [...] EST) SODIUM 135(L) 136 - 145 mmol/L [facility] LIC# [id number] POTASSIUM 4.1 3.4 - 5.1 mmol/L [facility] LIC# [id number] CHLORIDE 101 98 - 107 mmol/L [facility] LIC# [id number] CO2 29 22 - 31 mmol/L [facility] LIC# [id number] BUN 13 6 - 23 mg/dL [facility] LIC# [id number] CREATININE 0.79 0.50 - 1.20 mg/dL [facility] LIC# [id number] GLUCOSE 99 70 - 100 mg/dL [facility] LIC# [id number] ALBUMIN 3.0(L) 3.5 - 5.2 g/dL [facility] LIC# [id number] TOTAL PROTEIN 7.9 6.4 - 8.3 g/dL [facility] LIC# [id number] CALCIUM 8.8 8.8 - 10.7 mg/dL [facility] LIC# [id number] ALKALINE PHOSPHATASE 75 40 - 129 U/L [facility] LIC# [id number] TOTAL BILIRUBIN 0.3 0.2 - 1.2 mg/dL [facility] LIC# [id number] AST 16 <41 U/L [facility] LIC# [id number] ALT 24 <42 U/L [facility] LIC# [id number] GLOBULIN 4.9(H) 1.9 - 4.1 g/dL [facility] LIC# [id number] EGFR 89 >59 mL/min/1.7 3m2 [facility] LIC# [id number] Comment:If patient is Tara n-Chinese, multiply result by 1.159. Estimated glomerular filtration rate calculated using the CKD-EPI equation. ANION GAP 5(L) 7 - 17 mmol/L [facility] LIC# [id number] Blood 12/19/2019 1:58 PM EST 12/19/2019 2:12 PM EST Abel Jin MD LAB BLOOD BKR ORDERABLES Fi nal Result [facility] LIC# [id number] [address] [place] [address] from Last 3 Months or Most Recently Relevant to Health Maintenance Insurance GENERIC MEDICARE REPLACEMENT GENERIC MEDICARE REPLACEMENT GENERIC MEDICARE REPLACEMENT GENERIC MEDICARE REPLACEMENT GENERIC MEDICARE REPLACEMENT GENERIC MEDICARE REPLACEMENT GENERIC MEDICARE REPLACEMENT GENERIC MEDICARE REPLACEMENT GENERIC MEDICARE REPLACEMENT Care Teams Welding Manager Relationship Specialty Start Date End Date Amena Kaplan MD [address] [place] [address] PCP - General Internal Medicine 12/19/19 Additional Source Comments The information contained in this document represents components of the legal health record. It is not the complete legal health record.[facility]
--- OUTSIDE RECORDS SUMMARY | 2025-10-09 17:36 | XMS_ITS | Clinical Summary ---
Author Organization [address] Address [address] [place] [address] Phone Care Team Providers Care Escrow Processor Name Role Phone Tho Cruz NP Primary [...] EDT [facility] eGFR (-BRUNEIAN) >60 >60 mL/min/1. 73m2 05/07/2021 3:12 AM EDT [facility] eGFR (NON -Citizen Of [place]) >60 >60 mL/min/1. 73m2 05/07/2021 3:12 AM [...] mmol/L 05/07/2021 3:12 AM EDT [facility] Calcium 8.5 8.5 - 10.1 mg/dL 05/07/2021 3:12 AM EDT [facility] Blood Venipuncture / Unknown 05/07/2021 2:40 AM EDT 05/07/2021 2:44 AM EDT Vishnu Fontanez MD LAB BLOOD ORDERABLES Fin al Result Performing Organization Address [facility]/State/[facility] Co de Phone Number [facility] [address] [place] [address] from Last 3 Months or Most Recently Relevant to Health Maintenance Insurance MEDICARE MANAGED [facility] MEDICARE MANAGED [facility] MEDICARE MANAGED [facility] Care Teams Escrow Processor Relationship Specialty Start Date End Date Tho Cruz NP [address] [facility] [place] [address] PCP - General Family Medicine 05/07/21
[2025-10-13 14:50] VITALS: BMI 23.1
[2025-10-19] VITALS (8 sets, daily range): BP systolic 120–145; BP diastolic 64–76; PULSE 63–82; RESP 16–99; TEMP 36.6–37; O2SAT 96–99; BMI 22.7
[2025-10-19] MEDS: Lactated Ringers 1,000 ML 50 ML IVCONT (07:51)
--- NOTE | 2025-10-19 08:15 | MHC.SHP ---
Pre-Procedural Eval Section A - 24 Hr Update-Section A only Date of Service: 10/19/25 The patient is an INPATIENT: No Changes since office visit: Yes Patient answered all questions; No Cold of Flu in the past 2 weeks, No New Medical Problems and No Changes in Medication The patient has been examined within 24 hours of the surgical procedure. The History & Physical has been completed within 30 days and I have reviewed it.: Yes Section B - Complete if H&P > 30 days Chief Complaint: Unilateral inguinal hernia, without obstruction Allergies: Allergies Allergy/AdvReac Type Severity Reaction Status Date / Time oxycodone Allergy Severe Nausea and Verified 10/19/25 08:04 Vomiting Plan Diagnosis/Plan: Unchanged I have reviewed the history and physical and performed a pertinent physical examination on my patient. No changes have occurred unless specified. Time Spent With Patient Time: Total time managing care of this patient today ____ minutes.
--- NOTE | 2025-10-19 08:37 | HO.ANESPROP2 ---
Documented by User: Honey Mayen NP 10/13/25 14:55 HPI - Anesthesia Eval Consult details Narrative: 79 yr old male for right Repair Hernia Inguinal Reducible with mesh s/p hernia repair with GA, LMA 4 08/2025 [facility] ED visit 09/21/25 for chest pain 2/2 GERD, work up unremarkable. Mild aortic stenosis: Mean gradient 12, JULIAN Cont.VTI: 1.68 from January 2025 echo Mild cardiomyopathy: LVEF itself has been slightly variable at different times; Cardiac catheterization 2018 showed only mild disease in the 2nd diagonal, but otherwise normal coronary arteries. Atrial fibrillation: follows [facility] cardiology, but has not seen them since afib diagnosis 05/2025, on ASA Multiple myeloma: follows [facility] oncology, last visit 09/15/25; He is getting maintrnance Denosumab, q 3 monthly. He will receive dose #40 on 10/07/25; getting serial echos due to chemo. H/O aortic aneurysm repair in 2009: follows [facility] vascular, last visit 08/2025, stable aortic endograft PMF Active Problems Active Problems: All Active Problems (Updated 10/13/25 @ 14:22 by Shanta Marcos RN) Reducible right inguinal hernia (Acute) Testicular swelling, left (Acute) Burn of finger and thumb of left hand, first degree (Acute) Burn of finger or finger nail without thumb, second degree (Acute) Greater trochanteric bursitis of right hip (Acute) Greater trochanteric bursitis of left hip (Acute) Tendinitis of left triceps (Acute) Osteoarthritis of hands, bilateral (Acute) Bilateral carotid artery stenosis (Acute) Physical exam (Acute) Parainfluenza (Acute) Ascending aorta dilatation (Acute) BPH w urinary obs/LUTS (Acute) Prostate nodule (Acute) Leg cramping (Acute) Elevated PSA (Acute) Essential hypertension (Acute) Non-rheumatic aortic stenosis (Acute) Screening PSA (prostate specific antigen) (Acute) Bilateral knee pain (Acute) Chronic constipation (Acute) Acid reflux (Acute) Nausea (Acute) Vomiting (Acute) Peripheral vascular disease (Acute) Mitral annular calcification (Acute) Atherosclerotic cardiovascular disease (Acute) Screening PSA (prostate specific antigen) (Acute) Dyslipidemia (Acute) Bilateral hip pain (Acute) Bilateral hip bursitis (Acute) Hx of hernia repair (Acute 07/08/18) AAA (abdominal aortic aneurysm) (Acute ~2009) Statin intolerance (Acute) History of AAA (abdominal aortic aneurysm) repair (Acute) Vitamin D deficiency (Acute) Subclinical hyperthyroidism (Acute) Multinodular thyroid (Acute) Multiple myeloma (Acute) Past Medical History Medical History (Updated 10/19/25 @ 07:49 by Paula Carrasco RN) Anxiety Constipation Afib Incarcerated hernia HTN (hypertension) Pneumonia Statin intolerance AAA (abdominal aortic aneurysm) (~2009) Vitamin D deficiency Subclinical hyperthyroidism Multinodular thyroid Pancytopenia Leukopenia Multiple myeloma Family History Family History Father CVD (cardiovascular disease) AAA (abdominal aortic aneurysm) Mother Stomach cancer Family history of problems with anesthesia: No Surgical History Surgical History (Updated 10/13/25 @ 14:23 by Shanta Marcos RN) H/O colonoscopy S/P left inguinal hernia repair Hx of hernia repair (07/08/18) History of bone marrow biopsy Hx of tooth extraction History of back surgery Hx of umbilical hernia repair (06/28/13) History of AAA (abdominal aortic aneurysm) repair History of Problems with Anesthesia: No Social History Social History Household Members: Spouse Housing: House Are you a primary career services officer to a significant other at home: No Do you presently have visiting nurse or other home services: No Alcohol intake: former Comment: Patient refuses bed alarm Patient Tobacco Use Status: Former Tobacco user Years Smoked: 38 e-Cigarette/Vaping Use: Never Used Second Hand Smoke Exposure: No Use of substances other than those prescribed or required for medical reasons: No Have you been hit, kicked, punched, or otherwise hurt by someone within the past year? If so, by whom?: No Special tiesha needs: No Agree to transfusion: Yes Advance Directives: No Advance Directives Information Provided: Yes Advance Directives on File: No Advance Directives Date on File: 01/11/21 service: No Current occupational status: employed and retired Cognitive needs: No Hearing needs: No Vision needs: No Meds Allergies Allergy/AdvReac Type Severity Reaction Status Date / Time oxycodone Allergy Severe Nausea and Verified 10/19/25 08:04 Vomiting Home Medications ?Medication ?Instructions ?Recorded ?Confirmed ?Last Taken ?Type cholecalciferol (vit D3) 137.5 mcg 1 tab PO DAILY 05/24/23 10/13/25 05/23/23 09:00 History (5,500 unit)-vit K2 200 mcg tablet omega-3s 300 pw-tct-wrs-other 1 cap PO BEDTIME 05/24/23 10/13/25 10/18/25 History [id number] oil 1,000 mg capsule ([place]-3 Fish Oil) aspirin 81 mg capsule 81 mg PO 3XW Hypertension 04/29/24 10/13/25 10/18/25 History atorvastatin 40 mg tablet 40 mg PO MOWEFR@2100 08/27/25 10/13/25 Unknown History finasteride 5 mg tablet 2.5 mg PO MOWEFR@0900 08/27/25 10/13/25 Unknown History potassium chloride 20 mEq 20 meq PO DAILY 10/13/25 10/13/25 Unknown History tablet,extended release sulfamethoxazole 800 1 tab PO DAILY 10/13/25 10/13/25 Unknown History mg-trimethoprim 160 mg tablet Exam Pertinent Lab Results Pertinent Lab Results: Laboratory Tests 10/13/25 08:08 WBC 5.6 RBC 4.33 L Hgb 13.9 L Hct 42.5 Plt Count 185 Sodium 140 Potassium 3.8 BUN 19 H Creatinine 0.74 Narrative Narrative: Limited view ECHO 09/25/25 Conclusions: - The left ventricular systolic function is mild to moderately decreased. The visually estimated ejection fraction is between 40-45%. ECHO 01/2025 Conclusions: - The left ventricular systolic function is mildly decreased. The calculated ejection fraction is 49% by biplane method. - There is moderate calcification of the aortic valve. There is mild aortic valve stenosis. - There is mild dilatation of the ascending aorta measuring 4.10 cm. EKG 09/2025 Afib, rate 81 Assessment and Plan Final Anesthetic Review Family History of Problems with Anesthesia: No History of Problems with Anesthesia: No Documented by User: Candace Echeverria DO 10/19/25 08:38 [facility] Past Medical History Medical History (Updated 10/19/25 @ 07:49 by Paula Carrasco, RN) Anxiety Constipation Afib Incarcerated hernia HTN (hypertension) Pneumonia Statin intolerance AAA (abdominal aortic aneurysm) (~2009) Vitamin D deficiency Subclinical hyperthyroidism Multinodular thyroid Pancytopenia Leukopenia Multiple myeloma Family History Family History Father CVD (cardiovascular disease) AAA (abdominal aortic aneurysm) Mother Stomach cancer Family history of problems with anesthesia: No Surgical History Surgical History (Updated 10/13/25 @ 14:23 by Shanta Marcos RN) H/O colonoscopy S/P left inguinal hernia repair Hx of hernia repair (07/08/18) History of bone marrow biopsy Hx of tooth extraction History of back surgery Hx of umbilical hernia repair (06/28/13) History of AAA (abdominal aortic aneurysm) repair History of Problems with Anesthesia: No Social History Social History Household Members: Spouse Housing: House Are you a primary career services officer to a significant other at home: No Do you presently have visiting nurse or other home services: No Alcohol intake: former Comment: Patient refuses bed alarm Patient Tobacco Use Status: Former Tobacco user Years Smoked: 38 e-Cigarette/Vaping Use: Never Used Second Hand Smoke Exposure: No Use of substances other than those prescribed or required for medical reasons: No Have you been hit, kicked, punched, or otherwise hurt by someone within the past year? If so, by whom?: No Special tiesha needs: No Agree to transfusion: Yes Advance Directives: No Advance Directives Information Provided: Yes Advance Directives on File: No Advance Directives Date on File: 01/11/21 service: No Current occupational status: employed and retired Cognitive needs: No Hearing needs: No Vision needs: No Meds Allergies Allergy/AdvReac Type Severity Reaction Status Date / Time oxycodone Allergy Severe Nausea and Verified 10/19/25 08:04 Vomiting Home Medications ?Medication ?Instructions ?Recorded ?Confirmed ?Last Taken ?Type cholecalciferol (vit D3) 137.5 mcg 1 tab PO DAILY 05/24/23 10/13/25 05/23/23 09:00 History (5,500 unit)-vit K2 200 mcg tablet omega-3s 300 qr-oav-klp-other 1 cap PO BEDTIME 05/24/23 10/13/25 10/18/25 History vslhz5e-crol oil 1,000 mg capsule ([place]-3 Fish Oil) aspirin 81 mg capsule 81 mg PO 3XW Hypertension 04/29/24 10/13/25 10/18/25 History atorvastatin 40 mg tablet 40 mg PO MOWEFR@2100 08/27/25 10/13/25 Unknown History finasteride 5 mg tablet 2.5 mg PO MOWEFR@0900 08/27/25 10/13/25 Unknown History potassium chloride 20 mEq 20 meq PO DAILY 10/13/25 10/13/25 Unknown History tablet,extended release sulfamethoxazole 800 1 tab PO DAILY 10/13/25 10/13/25 Unknown History mg-trimethoprim 160 mg tablet Exam Exam Date and Time: 10/19/25 0835 Height,Weight and Vital Signs: Height 5 ft 8 in Weight 67.8 kg Vital Signs Temperature 98.6 F 10/19/25 07:33 Pulse Rate 71 10/19/25 07:33 Respiratory Rate 18 10/19/25 07:33 Blood Pressure 145/73 H 10/19/25 07:33 Pulse Oximetry 97 10/19/25 07:33 Oxygen Delivery Method Room Air 10/19/25 07:33 Temperature 98.6 F 10/19/25 07:33 Pulse Rate 71 10/19/25 07:33 Respiratory Rate 18 10/19/25 07:33 Blood Pressure 145/73 H 10/19/25 07:33 Pulse Oximetry 97 10/19/25 07:33 Oxygen Delivery Method Room Air 10/19/25 07:33 Airway Mallampati Class: I TM Dist: >3cm Neck ROM: Full Denture: Upper Heart: S1S2 Lungs: CTAB Assessment and Plan Assessment Anesthesia Assessment: Anesthesia Plan Discussed and Chart Reviewed Final Anesthetic Review Family History of Problems with Anesthesia: No History of Problems with Anesthesia: No NPO: Yes ASA Class: III Final Preanesthetic Review: No Changes in Pt Med Stat, Meds/Allgs Chart Reviewed, Consent Obtained/Reviewed and Anes Risks/Benef Reviewed Patient Risk: Intermediate Procedure Risk: Low Anesthetic Plan Anesthetic Plan: GA and Agree w/ Assess. and Plan Disposition: Standard PACU
--- NOTE | 2025-10-19 09:33 | W.PM.OPN ---
Operative Note Operative Note Date of Service: 10/19/25 Narrative: Preoperative diagnosis: Right inguinal hernia, reducible Postoperative diagnosis: Same Procedure: Repair of reducible right inguinal hernia with mesh Surgeon: Tho Sanchez MD Tax Accounting Assistant: Oren De La Cruz PA-C, Liss Wolf, MS-3 Anesthesia: General LMA Indications for procedure: 79-year-old male patient with a previous history of a left inguinal hernia now presenting with symptomatic right inguinal hernia presenting for repair with mesh Operative findings: Indirect right inguinal hernia, reducible Specimen: Hernia sac and lipoma right groin Estimated blood loss: 2 mL Complications: None Procedure details: Patient was brought to the OR and placed in a supine position. After administering general anesthesia the patient's abdomen was prepped with ChloraPrep and draped in a sterile fashion. A surgical time-out was called the consent confirmed. Patient received preoperative antibiotics and Venodyne boots were in place. Local anesthesia was infiltrated over the right inguinal ligament. Incision was then made with a scalpel and carried out through subcutaneous tissue, past Titi's fashion up to the external oblique aponeurosis. Additional local was infiltrated below the external oblique aponeurosis. This was then incised with the electrocautery and the spermatic cord identified. This was dissected free from the surrounding inguinal canal and retracted using a Edmund drain. The floor of the inguinal canal was found to be intact without hernia. Fibers of the cremaster muscle were then and a moderate-size lipoma identified. This was dissected down to the internal ring ligated and excised. In addition a indirect sac was identified. This was also dissected down to the internal ring. The sac was opened and the contents reduced. The sac was then ligated using a 0 Polysorb suture and excised. Both were sent as specimen to pathology. Attention was then directed to the floor of the inguinal canal. The internal oblique and transversalis aponeurosis were incised using electrocautery between Allis clamps. The preperitoneal space was entered and then widened with a open Ray-Manuel sponge. A large PHS mesh was then obtained and the circular underlay deployed within the preperitoneal space. The overlay was then secured to the pubic tubercle, conjoined tendon, and shelving edge of the inguinal ligament using a 0 Polysorb suture. A slit was then made in the mesh in the mesh wrapped around the spermatic cord at the internal ring. This was then secured to the shelving edge using a 0 Polysorb suture. The remainder of the mesh was then secured laterally below the external oblique aponeurosis. Wounds were then irrigated with saline solution and suctioned dry. External oblique aponeurosis was then closed using a running 2-0 Polysorb suture. Approximately 6 mL of Zenrelef was then instilled below the external oblique aponeurosis for postoperative pain relief. Titi's fascia and dermis were then reapproximated using interrupted 3-0 Polysorb sutures. Skin was then closed using a running subcuticular 4-0 Polysorb suture. Steri-Strips, 4 x 4 gauze and Tegaderm were then applied. The patient tolerated the procedure well. Sponge, instrument, and needle counts reported as correct. The patient was transferred to PACU in stable condition.
== END 2025-10-19 11:37 | disposition home or self-care (01) ==
PROVIDERS: PCP Nurse Practitioner Family; Visit Provider Surgery
PROC: (CPT 49505; principal; 2025-10-19 08:40)
DX: K40.90 Unilateral inguinal hernia, without obstruction or gangrene, not specified as recurrent (principal); N50.89 Other specified disorders of the male genital organs; D17.6 Benign lipomatous neoplasm of spermatic cord; K59.00 Constipation, unspecified; I10 Essential (primary) hypertension; C90.00 Multiple myeloma not having achieved remission; D61.818 Other pancytopenia; D72.819 Decreased white blood cell count, unspecified; E05.80 Other thyrotoxicosis without thyrotoxic crisis or storm; E04.2 Nontoxic multinodular goiter; E55.9 Vitamin D deficiency, unspecified; Z79.82 Long term (current) use of aspirin; Z79.899 Other long term (current) drug therapy; Z98.890 Other specified postprocedural states; Z87.891 Personal history of nicotine dependence
CPT/HCPCS: 49505; 88302; C1781; J0131; J0668; J0690; J1100; J2003; J2371; J2405; J2704; J3010

== ENCOUNTER → 2025-10-19 06:41 | Outpatient (BNV) | payer MEDICARE, SELFPAY | PROVIDERS: PCP Nurse Practitioner Family; Visit Provider Surgery | DX: K40.90 Unilateral inguinal hernia, without obstruction or gangrene, not specified as recurrent (principal) | CPT/HCPCS: 49505 ==

== ENCOUNTER 2025-10-25 12:18 | Outpatient (AMB) | payer MEDICARE, SELFPAY ==
--- NOTE | 2025-10-25 12:21 | A.OFFVIS_ITS ---
Vital Signs 10/25/25 12:35 Weight 148 lb BP 141/74 H Blood Pressure Location Rt brachial Position Sitting Pulse 70 Intake Visit Reasons: wound check, RIH repair Intake Note: Patient here s/p repair of reducible right inguinal hernia with mesh. Patient called for appointment this morning. Patient c/o: sharp pain at surgical site on Rt groin. Taking Tylenol 500mg Q4- 6hrs. Stopped taking rx pain med due to constipation. Some steri strips fell off. Incision area feels inflamed. Wants to make sure is okay to have chemo txt on Thursday. Surgery (): 10-19-2025 Cup Trimming Machine Operator Required: No Accompanied by: Spouse Allergies oxycodone Allergy (Severe, Verified 10/25/25 12:37) Nausea and Vomiting HPI HPI wound check, RIH repair: Details: Returning to the office following right inguinal hernia repair for difficulty with pain control. Has been taking Tylenol, alternating with ibuprofen but this has not been helping. He describes a sharp pain at the incision site that radiates up his side with certain movements. He often attributes this to his waistband rubbing up against the incision site. He also endorses some significant scrotal swelling and bruising. He has been urinating without issue. He has been experiencing constipation as well did not go for a few days. Found himself morning to strain and was only able to get out a small piece of hard stool. However the next day passed a very large firm stool without straining. He has been taking Colace, also trying to stay hydrated. He denies fevers at home. Has been eating well able to move around the house well. [facility] Medical History Anxiety Constipation Afib Incarcerated hernia HTN (hypertension) Pneumonia Statin intolerance AAA (abdominal aortic aneurysm) (~2009) Vitamin D deficiency Subclinical hyperthyroidism Multinodular thyroid Pancytopenia Leukopenia Multiple myeloma Surgical History H/O colonoscopy S/P left inguinal hernia repair Hx of hernia repair (07/08/18) History of bone marrow biopsy Hx of tooth extraction History of back surgery Hx of umbilical hernia repair (06/28/13) History of AAA (abdominal aortic aneurysm) repair Family History Father CVD (cardiovascular disease) AAA (abdominal aortic aneurysm) Mother Stomach cancer Social History Household Members: Spouse Housing: House Are you a primary student career development specialist to a significant other at home: No Do you presently have visiting nurse or other home services: No Alcohol intake: former Comment: Patient refuses bed alarm Patient Tobacco Use Status: Former Tobacco user Years Smoked: 38 e-Cigarette/Vaping Use: Never Used Second Hand Smoke Exposure: No Special tiesha needs: No Agree to transfusion: Yes Advance Directives Date on File: 01/11/21 service: No Current occupational status: employed and retired Cognitive needs: No Hearing needs: No Vision needs: No Physical Exam Vital Signs: Last Vital Signs Pulse 70 10/25/25 12:35 BP 141/74 H 10/25/25 12:35 Const General: comfortable and no acute distress Orientation/consciousness: patient oriented x3 GI Other: Incision site clean and dry. Steri-Strips in place, removed in office mild to moderate edema surrounding incision site, dependent sending towards scrotum no erythema, no fluid collection minimally tender to palpation Other: Moderate scrotal swelling with ecchymosis. Neuro General: patient oriented x3 Assessment & Plan Assessment & Plan (1) S/P right inguinal hernia repair: Code(s): Z98.890 - Other specified postprocedural states; Z87.19 - Personal history of other diseases of the digestive system Category: Surgical Plan 79-year-old male returning to the office following right inguinal hernia repair on 10/19/[address] Sanchez experiencing difficulty with pain control. Based off the patient's history pain appears to be related to movement as well as clothing. I reassured him that pain especially with movement is appropriate at this stage, and should improve over the coming weeks. I recommended some things that he can do to help including warm compress, loose fitting clothing. He can continue with OTC Tylenol alternating with ibuprofen. Patient unfortunately has allergy to oxycodone, experiences nausea and vomiting while this is likely not a true allergy we will hold off on sending for pain meds. He was initially having some constipation. But has produced a few large bowel movements since and feels better. His diet and appetite are at baseline. On exam the incision site appears to be healing well. This was minimally tender there was mild to moderate edema in the inferior aspect of the incision site extending down into the scrotum where he has moderate scrotal edema and ecchymosis. Appears dependent at this point reassured him that this will resolve with time. There was no concern for infection at the incision site. We will continue with no heavy lifting greater than 15-20 lb for likely 6 weeks postop. He is agreeable to this plan. He will follow up in 2 weeks. Can return sooner with any questions. Coding Level of Care Code Global (25617) Diagnoses S/P right inguinal hernia repair Z98.890; Z87.19
[2025-10-25 12:35] VITALS: BP 141/74; PULSE 70
--- OUTSIDE RECORDS SUMMARY | 2025-10-25 16:12 | XMS_ITS | Patient Health Record ---
Author Organization [facility] Address [address] [place] [id number] Care Team Providers Care Manager Code Name Role Phone CLIFF [place] Primary Care Provider Ana Madsen Unavailable [phone] Allergies Allergen (clinical drug ingredient) Drug/Non Drug [...] Problem Screening for malignant neoplasm of colon (985574617) Encounter for screening for malignant neoplasm of colon (Z12.11) Active confirmed Problem Nausea and vomiting (70020771) Nausea with vomiting, unspecified (R11.2) Active confirmed Problem Preprocedural examination (989766807491552) Preprocedural examination (Z01.818) Active confirmed Problem Constipation (71808534) Constipation, unspecified constipation type (K59.00) Active confirmed Plan Of Treatment No Information Insurance Providers Payer Name Payer Address Payer Phone Subscriber Number Group Number Insured Name Patient Relationship to Insured Coverage Start Date Coverage End Date [facility] [address] [place] [phone] [id number] ANA ORTIZ Self - patient is the insured Medical (General) History Medical History History ICD Code Emphysema-mild Denies SC,DM,CVA,renal disease Arthritis Multiple myeloma 10/2019--sees Dr. Chacorta mendez for chemotherapy HTN Neg. colonoscopy in 08/2009 Hyperlipidemia Abdominal aortic aneurysm with treatment as below Surgical History Surgery Date(Month/Year) Lumbar surgery - Dr. De La Paz 2007 Endovascular graft placement at [facility] for AAA--sees Dr. Galeano now 2009 Hernia repairs- left inguinal and umbili broderick
--- OUTSIDE RECORDS SUMMARY | 2025-10-25 16:12 | XMS_ITS | Clinical Summary ---
Author Organization Patient Business Ser [facility] Address [address] [place] [address] Care Team Providers Care Can Patcher Name Role Phone Lita Hill Primary Care Provider [phone] Encounters Date Type Department Care Team Description 08/02/2025 8:09 AM EDT - 08/02/2025 11:59 PM EDT Hospital Encounter [facility] PET Scan [address] [place] [address] Multiple myeloma not having achieved [...] EDT Multiple myeloma not having achieved remission ([facility] V24, [facility] V28) from Last 3 Months Results * [...] Signed Date: 08/03/2025 16:04 ET Workstation ID: [id number] Transcribed By: Self Edit Transcribed Date: 08/03/2025 [...] Signed Date: 08/03/2025 16:04 ET Workstation ID: [id number] Transcribed By: Self Edit Transcribed Date: 08/03/2025 15:59 ET us Andrea Beach MD IMG NM PROCEDURES Final Result from Last 3 Months Insurance [employer] Care Teams Can Patcher Relationship Specialty Start Date End Date Lita Hill [address] [place] [id number] PCP - General 03/11/18
--- OUTSIDE RECORDS SUMMARY | 2025-10-25 16:13 | XMS_ITS | Clinical Summary ---
Author Organization [facility] With [facility] Address [address] [place] [address] Phone Care Team Providers Care Paper Steamer Name Role Phone Amena Kaplan MD Primary [...] EST) SODIUM 135(L) 136 - 145 mmol/L [facility] LIC# [id number] POTASSIUM 4.1 3.4 - 5.1 mmol/L [facility] LIC# [id number] CHLORIDE 101 98 - 107 mmol/L [facility] LIC# [id number] CO2 29 22 - 31 mmol/L [facility] LIC# [id number] BUN 13 6 - 23 mg/dL [facility] LIC# [id number] CREATININE 0.79 0.50 - 1.20 mg/dL [facility] LIC# [id number] GLUCOSE 99 70 - 100 mg/dL [facility] LIC# [id number] ALBUMIN 3.0(L) 3.5 - 5.2 g/dL [facility] LIC# [id number] TOTAL PROTEIN 7.9 6.4 - 8.3 g/dL [facility] LIC# [id number] CALCIUM 8.8 8.8 - 10.7 mg/dL [facility] LIC# [id number] ALKALINE PHOSPHATASE 75 40 - 129 U/L [facility] LIC# [id number] TOTAL BILIRUBIN 0.3 0.2 - 1.2 mg/dL [facility] LIC# [id number] AST 16 <41 U/L [facility] LIC# [id number] ALT 24 <42 U/L [facility] LIC# [id number] GLOBULIN 4.9(H) 1.9 - 4.1 g/dL [facility] LIC# [id number] EGFR 89 >59 mL/min/1.7 3m2 [facility] LIC# [id number] Comment:If patient is Tara n-Japanese, multiply result by 1.159. Estimated glomerular filtration rate calculated using the CKD-EPI equation. ANION GAP 5(L) 7 - 17 mmol/L [facility] LIC# [id number] Blood 12/19/2019 1:58 PM EST 12/19/2019 2:12 PM EST Abel Jin MD LAB BLOOD BKR ORDERABLES Fi nal Result [facility] LIC# [id number] [address] [place] [address] from Last 3 Months or Most Recently Relevant to Health Maintenance Insurance GENERIC MEDICARE REPLACEMENT GENERIC MEDICARE REPLACEMENT GENERIC MEDICARE REPLACEMENT GENERIC MEDICARE REPLACEMENT GENERIC MEDICARE REPLACEMENT GENERIC MEDICARE REPLACEMENT GENERIC MEDICARE REPLACEMENT GENERIC MEDICARE REPLACEMENT GENERIC MEDICARE REPLACEMENT Care Teams Paper Steamer Relationship Specialty Start Date End Date Amena Kaplan MD [address] [place] [address] PCP - General Internal Medicine 12/19/19 Additional Source Comments The information contained in this document represents components of the legal health record. It is not the complete legal health record.[facility] With [facility]
--- OUTSIDE RECORDS SUMMARY | 2025-10-25 16:13 | XMS_ITS | Clinical Summary ---
Author Organization [address] Address [address] [place] [address] Phone Care Team Providers Care Sustainability Communicator Name Role Phone Tho Cruz NP Primary [...] [facility] eGFR (NON -Norwegian) >60 >60 mL/min/1. 73m2 05/07/2021 3:12 AM [...] 05/07/2021 3:12 AM EDT [facility] Calcium 8.5 8.5 - 10.1 mg/dL 05/07/2021 3:12 AM EDT [facility] Blood Venipuncture / Unknown 05/07/2021 2:40 AM EDT 05/07/2021 2:44 AM EDT Vishnu Fontanez MD LAB BLOOD ORDERABLES Fin al Result Performing Organization Address [facility]/State/[facility] Co de Phone Number [facility] [address] [place] [address] from Last 3 Months or Most Recently Relevant to Health Maintenance Insurance MEDICARE MANAGED [facility] MEDICARE MANAGED [facility] MEDICARE MANAGED [facility] Care Teams Sustainability Communicator Relationship Specialty Start Date End Date Tho Cruz NP [address] [facility] [place] [address] PCP - General Family Medicine 05/07/21
== END 2025-10-25 12:52 | disposition home or self-care (01) ==
LOC: HO.HGS 12:18
PROVIDERS: PCP Nurse Practitioner Family
DX: Z98.890 Other specified postprocedural states (principal); Z87.19 Personal history of other diseases of the digestive system
CPT/HCPCS: 99024

== ENCOUNTER → 2025-10-25 12:18 | Outpatient (BNVA) | payer MEDICARE, SELFPAY | PROVIDERS: PCP Nurse Practitioner Family | DX: Z98.890 Other specified postprocedural states (principal); Z87.19 Personal history of other diseases of the digestive system | CPT/HCPCS: 99212 ==

== ENCOUNTER 2025-10-26 06:47 | Outpatient (REF) | payer MEDICARE, SELFPAY ==
--- OUTSIDE RECORDS SUMMARY | 2025-10-26 06:51 | XMS_ITS | Clinical Summary ---
Author Organization Patient Business Ser [facility] Address [address] [place] [address] Care Team Providers Care Certified Medical Coding Specialist Name Role Phone Lita Hill Primary Care Provider [phone] Encounters Date Type Department Care Team Description 08/02/2025 8:09 AM EDT - 08/02/2025 11:59 PM EDT Hospital Encounter [facility] PET Scan [address] [place] [address] Multiple myeloma not having achieved [...] Multiple myeloma not having achieved remission ([facility] V24, [facility] V28) from Last 3 Months [...] Signed Date: 08/03/2025 16:04 ET Workstation ID: [id number] Transcribed By: Self Edit Transcribed Date: 08/03/2025 [...] Signed Date: 08/03/2025 16:04 ET Workstation ID: [id number] Transcribed By: Self Edit Transcribed Date: 08/03/2025 15:59 ET us Andrea Baech MD IMG NM PROCEDURES Final Result from Last 3 Months Insurance [employer] MEDIC[employer] ADVANTAGE Care Teams Certified Medical Coding Specialist Relationship Specialty Start Date End Date Lita Hill [address] [place] [phone] PCP - General 03/11/18
--- OUTSIDE RECORDS SUMMARY | 2025-10-26 06:52 | XMS_ITS | Clinical Summary ---
Author Organization [address] Address [address] [place] [address] Phone Care Team Providers Care Blueprint Machine Operator Name Role Phone Tho Cruz NP Primary [...] EDT [facility] eGFR (-EMIRATI) >60 >60 mL/min/1. 73m2 05/07/2021 3:12 AM EDT [facility] eGFR (NON -Eritrean) >60 >60 mL/min/1. 73m2 05/07/2021 3:12 AM [...] ORDERABLES Fin al Result Performing Organization Address [facility]/State/[facility] Co de Phone Number [facility] [address] [place] [address] from Last 3 Months or Most Recently Relevant to Health Maintenance Insurance MEDICARE MANAGED [facility] MEDICARE MANAGED [facility] MEDICARE MANAGED [facility] Care Teams Blueprint Machine Operator Relationship Specialty Start Date End Date Tho Cruz NP [address] [place] [address] PCP - General Family Medicine 05/07/21
--- OUTSIDE RECORDS SUMMARY | 2025-10-26 06:52 | XMS_ITS | Patient Health Record ---
Author Organization [facility] Address [address] [place] [address] Care Team Providers Care Senior Rd Engineer Name Role Phone CLIFF [place]ON Primary Care Provider Ana Madsen Unavailable [phone] Allergies Allergen (clinical drug ingredient) Drug/Non Drug [...] Problem Screening for malignant neoplasm of colon (998927831) Encounter for screening for malignant neoplasm of colon (Z12.11) Active confirmed Problem Nausea and vomiting (94041519) Nausea with vomiting, unspecified (R11.2) Active confirmed Problem Preprocedural examination (216180446117802) Preprocedural examination (Z01.818) Active confirmed Problem Constipation (40129022) Constipation, unspecified constipation type (K59.00) Active confirmed Plan Of Treatment No Information Insurance Providers Payer Name Payer Address Payer Phone Subscriber Number Group Number Insured Name Patient Relationship to Insured Coverage Start Date Coverage End Date [facility] [address] [place] [address] [phone] [id number] ANA ORTIZ Self - patient is the insured Medical (General) History Medical History History ICD Code Emphysema-mild Denies [place],DM,CVA,renal disease Arthritis Multiple myeloma 10/2019--sees Dr. Chacorta mendez for chemotherapy HTN Neg. colonoscopy in 08/2009 Hyperlipidemia Abdominal aortic aneurysm with treatment as below Surgical History Surgery Date(Month/Year) Lumbar surgery - Dr. De La Paz 2007 Endovascular graft placement at [facility] for AAA--sees Dr. Galeano now 2009 Hernia repairs- left inguinal and umbili broderick
== END 2025-10-26 06:48 | disposition home or self-care (01) ==
LOC: HO.HMGCLDS 06:47
PROVIDERS: PCP Nurse Practitioner Family; Visit Provider Internal Medicine Medical Oncology
DX: C90.00 Multiple myeloma not having achieved remission (principal)
CPT/HCPCS: 36415; 80053; 85025